=== PATIENT | female | born 1945 | race Caucasian/White ===

== ENCOUNTER → 2017-01-21 | Outpatient (CLI) | payer MEDICARE, MEDICAID ==
[~2017-01-21] MED LIST: ACETAMINOPHEN325 M2 PO; ALLOPURINOL100 M1 PO; ALLOPURINOL100 MG PO; ANTIVERT GENERI25 MG PO; ARTHRICREAM 10% TP; ASPIRIN EC325 MG PO; AZITHROMYCIN250 M1 PO; BACLOFEN20 MG PO; BENTYL20 MG PO; BUSPIRONE HCL7.5 MG PO; CIPRO 500MG TA500 MG PO; CITALOPRAM10 MG PO; CLARITIN 10MG T10 MG PO; CLARITIN10 MG PO; COGENTIN GENERIC1 MG PO; COLACE GENERIC100 MG OR; FLONASE 50 MCG16 GM IN; GABAPENTIN100 M1 PO; IBU-8800 MG PO; IBUPROFEN 600M600 MG PO; K-Dur 2020 MEQ PO; KEFLEX 500MG.500 MG PO; KEFLEX500 M1 PO; KLOR-CON M2020 ME1 PO; LEVAQUIN500 MG PO; LOPERAMIDE2 M1 PO; LOPERAMIDE2 MG PO; LORAZEPAM1 MG/TABLE PO; MAXZIDE 25 MG-31 TAB PO; MAXZIDE 50 MG-71 TAB PO; MECLIZINE HYDRO25 MG PO; MECLIZINE12.5 MG PO; MECLIZINE25 MG PO; MOTRIN 600MG.600 MG PO; NITROSTAT 0.4M0.4 MG SL; PREDNISONE 20MG20 MG PO; PRILOSEC20 M1 PO; PRILOSEC20 MG PO; PROCHLORPERAZIN10 MG PO; PROMETHAZINE25 M1 PO; PROTONIX 40MG T40 MG PO; Prilosec20 MG PO; Q-TUSSIN DM 10120 ML PO; ROBITUSSIN DM 105 ML PO; ROBITUSSIN100 MG/5 M PO; TESSALON PERLE100 MG PO; TESSALON PERLE200 MG PO; TRIAMTERENE/HCT1 TA1 PO; ZITHROMAX 250M250 MG PO; ZOFRAN ODT4 MG PO; ZOFRAN4 MG PO; ZYPREXA5 M1 PO; ZYPREXA5 MG PO
--- NOTE | 2017-01-21 13:49 | RADIOLOGY REPORT PS360 ---
History and Indications: Chest pain, shortness of breath tobacco use. Procedure: Patient received 0.4 mg of Lexiscan, resting heart rate was 65 bpm resting blood pressure 129/68, with Lexiscan maximum heart rate achieved was 85 bpm which is less than 85% of the maximum predicted heart rate, and the blood pressure was 123/57. With Lexiscan patient complained of shortness of breath. Electrocardiogram: Resting electrocardiogram showed sinus rhythm, with Lexiscan there is less than 1.[address] segment depression noted from the baseline EKG. The EKG portion of the Lexiscan is nondiagnostic. Cardiac stress and resting SPECT images: Cardiac stress and resting SPECT images were obtained using technetium 99 Myoview 10.5 mCi at rest 32.3 mCi at stress gated SPECT for analysis of segmental wall motion and calculation of the ejection fraction was also done. Cardiac stress and resting SPECT images show a mild fixed defect inferoseptally with normal contractility in the gated SPECT is likely secondary to soft tissue attenuation, no reversible ischemia seen. Computer derived ejection fraction is over 65% with no obvious regional wall motion abnormality, right ventricle is normal size and contractility. Conclusion: 1. The EKG portion of the Lexiscan is nondiagnostic. 2. No obvious scintigraphic evidence of reversible ischemia seen, computer derived ejection fraction over 65% with no obvious regional wall motion abnormality, right ventricle is normal size and contractility.
--- NOTE | 2017-01-21 14:53 | RADIOLOGY REPORT PS360 ---
PROCEDURE: 2-D M-mode and color Doppler study. INDICATIONS FOR THE TEST: Chest pain X COPD Heart Murmur Tobacco Smoking Palpitations Fatigue Syncope Edema Hypertension Diabetes Mellitus Rheumatic Fever SOB BARCLAY Obesity Hyperlipidemia Family History HD Additional History PATIENT INFORMATION HEIGHT: 67 WEIGHT:180 GENDER: Female B/P:136/60 2-D/M-MODE INTERPRETATION: 2-D MEASUREMENTS OBSERVED VALUES IN CMS Right Ventricular Dimension (RVDd) 1.8 Interventricular Septum (Thickness)(IVsd) 1.2 Left Ventricular Internal Dimensions(LVIDd) 3.5 Left Ventricular Posterior Wall (Thickness)(LVPWd) 1.2 Aortic Root 3.0 Aortic Cusp Separation 1.5 Left Atrial Dimensions (LAD) 2.4 2D 1. Technically difficult study because of the patient's factor and poor acoustic windows. 2. The left atrium is mildly enlarged qualitatively, left ventricle is normal size, there is mild concentric left ventricular hypertrophy present, visually estimated ejection fraction 55% with no obvious regional wall motion abnormality. 3. The right atrium and right ventricle are normal size and contractility. 4. The aortic valve is minimally thickened and fibrosed consistent with mild aortic sclerosis. 5. Mitral valve leaflets are minimally thickened, there is no mitral stenosis. 6. The tricuspid valve is structurally normal. 7. Pulmonic valve is not well visualized. 8. No significant pericardial effusion noted. DOPPLER INTERROGATION: Doppler interrogation of the aortic mitral and tricuspid valvular presence of mild mitral and tricuspid regurgitation, tricuspid regurgitant jet velocity insufficient for calculation of the right ventricular systolic pressure. Grade 1 diastolic dysfunction seen without tissue Doppler evidence of raised left atrial pressure. CONCLUSION: 1. Mildly enlarged left atrium, normal left ventricular size, mild concentric left ventricular hypertrophy present visually estimated to fraction 55% with no obvious regional wall motion abnormality, grade 1 diastolic dysfunction seen without Doppler evidence of raised left atrial pressure. 2. Mild mitral and tricuspid regurgitation 3. No significant pericardial effusion noted.
== END ==
LOC: RAD 07:30
DX: I20.9 Angina pectoris, unspecified (principal); R06.00 Dyspnea, unspecified
CPT/HCPCS: A9502; J2785

== ENCOUNTER 2017-02-22 22:14 | Emergency (ER) | payer MEDICARE, MEDICAID ==
[~2017-02-22] VITALS: Ht 177.8 cm; Wt 68.0 kg
--- NOTE | 2017-02-22 22:19 | Emergency Room Report ---
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 N Clinical Suspician of Infection? N Mental Status: 1 - Regular (Normal Baseline) Sepsis Risk:Low Sepsis Risk Have you (or family members/close friends) recently traveled outside the [place] States? N If Yes, where/when: Have you had exposure to infectious disease within the past month? N TB? Other? Specify: Comment The patient is brought in by ambulance complaining of chest pain. She is an inconsistent historian. Initially she told me that she had chest pain all that day long that did not go away. She then later states that she has had intermittent chest pain since 5 PM. She has felt short of breath all day. She has some chronic back pain from arthritis but denies any other pain or radiation. She denies nausea or vomiting or diaphoresis. She was given aspirin and nitroglycerin prior to arrival. Currently, she complains of some intermittent chest pain in the lower sternal area. ALLERGIES Coded Allergies: No Known Allergies (01/17/17) Home Medications Active Scripts Pantoprazole Sodium (Protonix 40MG TAB) 40 MG PO DAILY #30 TAB Ref 6 Prov: 09/02/15 ASPIRIN (Aspirin EC) 325 MG PO DAILY #30 Prov: 06/26/12 Reported Medications Acetaminophen (Acetaminophen Tab) 325 MG PO Q4H PRN PAIN BENZTROPINE MESYLATE (COGENTIN 1MG TAB) 1 TAB PO BID Buspirone Hcl 10 TAB PO BID Nitroglycerin (Nitrostat 0.4MG (1/150 Gr) Tabs #25) 0.4 MG SL [id number] Baclofen (Baclofen 20MG) 1 TAB PO BID LOPERAMIDE HCL (Loperamide) 2 MG PO Q8HP DEXTROMETHORPHAN-GG (Guaifenesin Dm Syrup) 10 ML PO Q6HP CITALOPRAM HYDROBROMIDE (Citalopram HBr) 20 mg PO DAILY Lorazepam (Lorazepam 1MG) 1 MG PO TID Gabapentin (Gabapentin 100MG) 100 MG PO TID Allopurinol 100 MG PO BID Prochlorperazine Maleate 10 MG PO Q6HP PRN UNKNOWN Potassium Chloride (Klor-Con M20) 20 MEQ PO TID TRIAMTERENE/HYDROCHLOROTHIAZID (Triamterene-Hctz 75-50 MG Tab) 1 TAB PO DAILY Loratadine (Claritin 10MG) 10 MG PO DAILY Olanzapine (Zyprexa) 5 MG PO BID History Medical History General CAD? No Angina: No [place]: No Hypertension? Yes Hyperlipidemia? No CHF? No DVT? No PE? No COPD? No Asthma? No Anemia? No GERD? Yes Gastric ulcers? No GI Bleed? No Hernia? No Thyroid Problems? No Hypothyroidism? No CVA? No Seizures? No Diabetes? No Insulin Dependent: No Insulin Pump: No Home FSBS? No Renal Insuffiency? No End Stage Renal Disease? No UTI? No Stones? No BPH? No GB Disease: Yes Nephritic Syndrome? No Asplenia? No Hepatitis? No Sickle Cell Disease? No Arthritis? Yes Migraines? No Cataracts? No Glaucoma? No MRSA? No HIV? No TB? No Anxiety? No Depression? No Cancer? No More? 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 She has had a CT angiogram of her chest 01/08/17 and 08/19/16, both negative for pulmonary embolism. Both showed gas filled distal esophagus, possible achalasia She had a Lexiscan SPECT stress test on 01/21/17 which showed no obvious scintigraphic evidence of reversible ischemia. Electrocardiogram portion nondiagnostic. Review of Systems All Other Systems Reviewed and Negative Constitutional denies diaphoresis, denies fever Respiratory shortness of breath Cardiovascular chest pain Gastrointestinal denies abdominal pain, denies nausea, denies vomiting Physical Exam Vital Signs Vital Signs Date Time Temp Pulse Resp B/P Pulse O2 O2 Flow FiO2 Ox Delivery Rate 02/23 0124 64 20 134/76 94 02/22 2244 76 20 122/72 95 02/22 2217 98.4 84 20 105/68 96 General Appearance normal appearance, WD/WN Eye Exam - bilateral eye normal exam, bilateral eye PERRL, bilateral eye EOMI Ear, Nose, Throat hearing grossly normal, normal ENT inspection Neck normal inspection, non-tender, supple, full range of motion Respiratory Status Yes: trachea midline, chest symmetrical, non tender chest. No: respiratory distress. Lung Sounds bilateral: normal breath sounds, lungs clear. 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 No Results/Orders Laboratory Tests 02/23/17 0058: Troponin I < 0.02 02/22/172109: Amylase 54, Lipase 165 02/22/172109: Sodium 145, Potassium 3.5, Chloride 108 H, Carbon Dioxide 29, BUN 16, Creatinine 0.8, Estimated Creat Clear 69, Estimated GFR (MDRD) 71, Glucose 118 H, Calcium 8.7, Total Bilirubin 0.2, AST 13 L, ALT 23, Alkaline Phosphatase 121 H, Creatine Kinase 80, CK-MB (CK-2) Rel Index 1.6, CK and CKMB Interp 1.3, Troponin I < 0.02, Total Protein 6.9, Albumin 3.4, Globulin 3.5 H, Albumin/ Globulin Ratio 1.0 L, WBC 6.0, RBC 3.80 L, Hgb 11.9 L, Hct 35.0 L, MCV 92.0, RDW 13.4, Plt Count 192, MPV 6.4 L, Gran % 51.2, Gran # 3.1, Lymphocytes % 39.8 , Monocytes % 6.2, Eosinophils % 2.3, Basophils % 0.5, Lymphocytes # 2.4, Monocytes # 0.4, Eosinophils # 0.1, Basophils # 0.0, PUBS MCHC 34.0, MCH 31.3 H Orders Procedure Date/time Status TROPONIN I 02/23 0100 Complete CHEST(2 VIEWS-NOT PORTABLE) 02/22 2251 Active LIPASE 02/22 224 Complete AMYLASE 02/22 224 Complete ELECTROCARDIOGRAM REQUEST 02/23 2224 Active CHEST-PORTABLE 02/23 2224 Active IV SALINE LOCK 02/23 2224 Active EDUCATIONAL SPEECH LANGUAGE CLINICIAN 02/23 2224 Active CBC WITH AUTO DIFF 02/23 2224 Complete CARDIAC ENZYMES 02/23 2224 Complete CHEM 12 PROFILE 02/23 2224 Complete 12 LEAD EKG-BESSON (INITIAL) 02/22 UNK Active CM/EKG CM/EKG Comments EKG interpreted by Zeyad Rojo MD: Rhythm: sinus Rate: 76 [place]: normal Ectopy: none Conduction: First-degree AV block ST Segment Changes: none T Wave Changes: none Q Waves: none Minimal septal R waves, possible old septal wall myocardial infarction, unchanged from prior electrocardiograms No evidence of acute ischemia or injury XRAY/CT/US XRAY/CT/US XRAY chest Comment X-ray interpreted by Zeyad Rojo M.D.: Bibasilar atelectasis versus vascular crowding, similar to prior x-rays. Progress - 1:25 AM: Patient states she feels better. Second troponin negative. We'll discharge back to home. Departure Departure Disposition DC Home or Self Care(routine) Clinical Impression Primary Impression: Atypical chest pain Condition STABLE Referrals Niranjan Shea (Family) Patient Instructions DI for Atypical Chest Pain Additional Instructions Additional instructions for CHEST PAIN: See your physician as soon as possible for further evaluation. Return immediately if worsening chest pain, vomiting, shortness of breath, fever, coughing of blood. ED Critical Care Critical Care No at 0128
--- NOTE | 2017-02-22 22:19 | Emergency Room Report ---
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 N Clinical Suspician of Infection? N Mental Status: 1 - Regular (Normal Baseline) Sepsis Risk:Low Sepsis Risk Have you (or family members/close friends) recently traveled outside the [place] States? N If Yes, where/when: Have you had exposure to infectious disease within the past month? N TB? Other? Specify: Comment The patient is brought in by ambulance complaining of chest pain. She is an inconsistent historian. Initially she told me that she had chest pain all that day long that did not go away. She then later states that she has had intermittent chest pain since 5 PM. She has felt short of breath all day. She has some chronic back pain from arthritis but denies any other pain or radiation. She denies nausea or vomiting or diaphoresis. She was given aspirin and nitroglycerin prior to arrival. Currently, she complains of some intermittent chest pain in the lower sternal area. ALLERGIES Coded Allergies: No Known Allergies (01/17/17) Home Medications Active Scripts Pantoprazole Sodium (Protonix 40MG TAB) 40 MG PO DAILY #30 TAB Ref 6 Prov: 09/02/15 ASPIRIN (Aspirin EC) 325 MG PO DAILY #30 Prov: 06/26/12 Reported Medications Acetaminophen (Acetaminophen Tab) 325 MG PO Q4H PRN PAIN BENZTROPINE MESYLATE (COGENTIN 1MG TAB) 1 TAB PO BID Buspirone Hcl 10 TAB PO BID Nitroglycerin (Nitrostat 0.4MG (1/150 Gr) Tabs #25) 0.4 MG SL [id number] Baclofen (Baclofen 20MG) 1 TAB PO BID LOPERAMIDE HCL (Loperamide) 2 MG PO Q8HP DEXTROMETHORPHAN-GG (Guaifenesin Dm Syrup) 10 ML PO Q6HP CITALOPRAM HYDROBROMIDE (Citalopram HBr) 20 mg PO DAILY Lorazepam (Lorazepam 1MG) 1 MG PO TID Gabapentin (Gabapentin 100MG) 100 MG PO TID Allopurinol 100 MG PO BID Prochlorperazine Maleate 10 MG PO Q6HP PRN UNKNOWN Potassium Chloride (Klor-Con M20) 20 MEQ PO TID TRIAMTERENE/HYDROCHLOROTHIAZID (Triamterene-Hctz 75-50 MG Tab) 1 TAB PO DAILY Loratadine (Claritin 10MG) 10 MG PO DAILY Olanzapine (Zyprexa) 5 MG PO BID History Medical History General CAD? No Angina: No [place]: No Hypertension? Yes Hyperlipidemia? No CHF? No DVT? No PE? No COPD? No Asthma? No Anemia? No GERD? Yes Gastric ulcers? No GI Bleed? No Hernia? No Thyroid Problems? No Hypothyroidism? No CVA? No Seizures? No Diabetes? No Insulin Dependent: No Insulin Pump: No Home FSBS? No Renal Insuffiency? No End Stage Renal Disease? No UTI? No Stones? No BPH? No GB Disease: Yes Nephritic Syndrome? No Asplenia? No Hepatitis? No Sickle Cell Disease? No Arthritis? Yes Migraines? No Cataracts? No Glaucoma? No MRSA? No HIV? No TB? No Anxiety? No Depression? No Cancer? No More? 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 She has had a CT angiogram of her chest 01/08/17 and 08/19/16, both negative for pulmonary embolism. Both showed gas filled distal esophagus, possible achalasia She had a Lexiscan SPECT stress test on 01/21/17 which showed no obvious scintigraphic evidence of reversible ischemia. Electrocardiogram portion nondiagnostic. Review of Systems All Other Systems Reviewed and Negative Constitutional denies diaphoresis, denies fever Respiratory shortness of breath Cardiovascular chest pain Gastrointestinal denies abdominal pain, denies nausea, denies vomiting Physical Exam Vital Signs Vital Signs Date Time Temp Pulse Resp B/P Pulse O2 O2 Flow FiO2 Ox Delivery Rate 02/23 0124 64 20 134/76 94 02/22 2244 76 20 122/72 95 02/22 2217 98.4 84 20 105/68 96 General Appearance normal appearance, WD/WN Eye Exam - bilateral eye normal exam, bilateral eye PERRL, bilateral eye EOMI Ear, Nose, Throat hearing grossly normal, normal ENT inspection Neck normal inspection, non-tender, supple, full range of motion Respiratory Status Yes: trachea midline, chest symmetrical, non tender chest. No: respiratory distress. Lung Sounds bilateral: normal breath sounds, lungs clear. 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 No Results/Orders Laboratory Tests 02/23/17 0058: Troponin I < 0.02 02/22/172109: Amylase 54, Lipase 165 02/22/172109: Sodium 145, Potassium 3.5, Chloride 108 H, Carbon Dioxide 29, BUN 16, Creatinine 0.8, Estimated Creat Clear 69, Estimated GFR (MDRD) 71, Glucose 118 H, Calcium 8.7, Total Bilirubin 0.2, AST 13 L, ALT 23, Alkaline Phosphatase 121 H, Creatine Kinase 80, CK-MB (CK-2) Rel Index 1.6, CK and CKMB Interp 1.3, Troponin I < 0.02, Total Protein 6.9, Albumin 3.4, Globulin 3.5 H, Albumin/ Globulin Ratio 1.0 L, WBC 6.0, RBC 3.80 L, Hgb 11.9 L, Hct 35.0 L, MCV 92.0, RDW 13.4, Plt Count 192, MPV 6.4 L, Gran % 51.2, Gran # 3.1, Lymphocytes % 39.8 , Monocytes % 6.2, Eosinophils % 2.3, Basophils % 0.5, Lymphocytes # 2.4, Monocytes # 0.4, Eosinophils # 0.1, Basophils # 0.0, PUBS MCHC 34.0, MCH 31.3 H Orders Procedure Date/time Status TROPONIN I 02/23 0100 Complete CHEST(2 VIEWS-NOT PORTABLE) 02/22 2251 Active LIPASE 02/22 224 Complete AMYLASE 02/22 224 Complete ELECTROCARDIOGRAM REQUEST 02/23 2224 Active CHEST-PORTABLE 02/23 2224 Active IV SALINE LOCK 02/23 2224 Active GRAIN UNLOADER MACHINE 02/23 2224 Active CBC WITH AUTO DIFF 02/23 2224 Complete CARDIAC ENZYMES 02/23 2224 Complete CHEM 12 PROFILE 02/23 2224 Complete 12 LEAD EKG-BESSON (INITIAL) 02/22 UNK Active CM/EKG CM/EKG Comments EKG interpreted by Zeyad Rojo MD: Rhythm: sinus Rate: 76 [place]: normal Ectopy: none Conduction: First-degree AV block ST Segment Changes: none T Wave Changes: none Q Waves: none Minimal septal R waves, possible old septal wall myocardial infarction, unchanged from prior electrocardiograms No evidence of acute ischemia or injury XRAY/CT/US XRAY/CT/US XRAY chest Comment X-ray interpreted by Zeyad Rojo M.D.: Bibasilar atelectasis versus vascular crowding, similar to prior x-rays. Progress - 1:25 AM: Patient states she feels better. Second troponin negative. We'll discharge back to home. Departure Departure Disposition DC Home or Self Care(routine) Clinical Impression Primary Impression: Atypical chest pain Condition STABLE Referrals Niranjan Shea (Family) Patient Instructions DI for Atypical Chest Pain Additional Instructions Additional instructions for CHEST PAIN: See your physician as soon as possible for further evaluation. Return immediately if worsening chest pain, vomiting, shortness of breath, fever, coughing of blood. ED Critical Care Critical Care No at 0128
[2017-02-22 22:29] LABS: HEMOGLOBIN 11.9 g/dL (12.2-16.2); LYMPH # 2.4 K/mm3 (0.7-4.5); LYMPH % 39.8 % (10-50.0)
[2017-02-22 22:55] LABS: BUN 16 mg/dL (7-18); GFR (ESTIMATED) 71 ML/MIN (59-)
[2017-02-23 01:30] VITALS: BP 134/76
--- NOTE | 2017-02-23 08:47 | RADIOLOGY REPORT PS360 ---
CHEST-PORTABLE Ordering Physician: Zeyad Rojo MD Patient Age: 71 years: Female HISTORY: CHEST PAIN TECHNIQUE: AP portable upright chest COMPARISON 01-23 portable chest August 19, 2016 portable chest. PA and lateral chest from today subsequently performed FINDINGS No pneumothorax. No obvious pleural effusion. No chest wall lesions. No CHF. Heart normal size. suboptimal inspiration Bibasilar atelectasis most evident at left base. Question early infiltrate left base just above left hemidiaphragm. (Increased markings here left base becomes less evident on the PA and lateral performed 1 hour after this image) The heart is normal in size. Lyla and mediastinal structures satisfactory IMPRESSION: Suboptimal inspiration with Bibasilar atelectasis. Most pronounced at the left base Increased markings most notable just above left hemidiaphragm -difficult to exclude early infiltrate left lung base
--- NOTE | 2017-02-23 08:59 | RADIOLOGY REPORT PS360 ---
CHEST(2 VIEWS-NOT PORTABLE) Ordering physician: Zeyad Rojo MD Age: 71 years Female INDICATION: chest symptomschest pain PROCEDURE: CHEST(2 VIEWS-NOT PORTABLE) FINDINGS: Previous 2 view chest 07/05/2016 05/01/2016 and October 2015 used as comparison We again see coarsening markings toward lung bases reflecting bibasilar atelectasis and scarring. Most evident at left base. There is slight elevation left hemidiaphragm reflecting the atelectasis compared to previous studies. A previous portable chest performed 1 hour earlier, raised questioned possible early infiltrate at left lung base/left infrahilar region. This region appears better expanded, clearer with decreased suspicion of pneumonia. Tend to favor Favor atelectasis and scarring, but still it is difficult to totally exclude a subtle infiltrate medial left lung base, but less concern on this better inspiration PA and lateral chest film. Heart is normal in size. Mild vascular engorgement no CHF. No pleural effusion chest wall unremarkable. \ Old stable compression fractures lower T-spine unchanged since studies dating back to August 2016 T11 Severe wedge compression fracture with marked loss of height. Up to 75% loss of height at the anterior aspect of the wedge with slight retropulsion as seen on the recent CT chest 3-17. T12. A mild compression superior endplate 25% loss of height. Unchanged since old studies . IMPRESSION 1. Bibasilar atelectasis left greater the right Increased markings lung bases reflecting atelectasis and scarring . Difficult to exclude early infiltrate left base but more likely atelectasis. Slight elevation left hemidiaphragm today compared to prior studies 2. Stable old compression fractures lower T-spine better seen on prior CTs Prominent wedge compression fracture at T11 most evident and unchanged
== END 2017-02-23 01:51 | disposition home or self-care (01) ==
LOC: ER 22:14
PROVIDERS: Emergency Medicine
DX: R07.89 Other chest pain (principal); I10 Essential (primary) hypertension; K21.9 Gastro-esophageal reflux disease without esophagitis

== ENCOUNTER 2017-06-08 22:29 | Emergency (ER) | payer MEDICARE, MEDICAID ==
[~2017-06-08] VITALS: Ht 177.8 cm; Wt 79.4 kg
--- NOTE | 2017-06-08 22:40 | Emergency Room Report ---
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 N Clinical Suspician of Infection? N Mental Status: 1 - Regular (Normal Baseline) Sepsis Risk:Low Sepsis Risk Have you (or family members/close friends) recently traveled outside the [place]? N If Yes, where/when: Have you had exposure to infectious disease within the past month? N TB? Other? Specify: Source patient, RN notes reviewed, RN/MD Exam Limitations no limitations Comment This is a 71-year-old senior care patient from [place] arriving to the emergency room with left-sided chest wall pain since 12:30 today, nonradiating, without any associated shortness of breath or diaphoresis. Patient was seen here recently with same complaints on multiple occasions. Patient describes the pain is worse with deep inspiration. Denies any chest injury. ALLERGIES Coded Allergies: No Known Allergies (04/26/17) Home Medications Active Scripts Pantoprazole Sodium (Protonix 40MG TAB) 40 MG PO DAILY #30 TAB Ref 6 Prov: 09/02/15 ASPIRIN (Aspirin EC) 325 MG PO DAILY #30 Prov: 06/26/12 Reported Medications BENZTROPINE MESYLATE (COGENTIN 1MG TAB) 1 TAB PO BID Buspirone Hcl 10 TAB PO BID Nitroglycerin (Nitrostat 0.4MG (1/150 Gr) Tabs #25) 0.4 MG SL [id number] Baclofen (Baclofen 20MG) 1 TAB PO BID LOPERAMIDE HCL (Loperamide) 2 MG PO Q8HP DEXTROMETHORPHAN-GG (Guaifenesin Dm Syrup) 10 ML PO Q6HP CITALOPRAM HYDROBROMIDE (Citalopram HBr) 20 mg PO DAILY Lorazepam (Lorazepam 1MG) 1 MG PO TID Gabapentin (Gabapentin 100MG) 100 MG PO TID Allopurinol 100 MG PO BID Prochlorperazine Maleate 10 MG PO Q6HP PRN UNKNOWN Potassium Chloride (Klor-Con M20) 20 MEQ PO TID TRIAMTERENE/HYDROCHLOROTHIAZID (Triamterene-Hctz 75-50 MG Tab) 1 TAB PO DAILY Loratadine (Claritin 10MG) 10 MG PO DAILY Olanzapine (Zyprexa) 5 MG PO BID Acetaminophen (Tylenol XS 500MG) 1,000 MG PO Q6HP PRN PAIN Simethicone 30 ML PO Q 4 HOURS PRN INDIGESTION Lactulose (Lactulose) 1 DOSE PO DAILY NITROGLYCERIN (Nitrostat) 0.4 MG SL [id number] PRN CHEST PAIN Albuterol Sulfate (Proair Hfa) 1 PUFF IH Q4 HOURS PRN SOB Atorvastatin Calcium (Lipitor 10MG) 10 MG PO QHS History Medical History General CAD? No Angina: No AL: No Hypertension? Yes Hyperlipidemia? No CHF? No DVT? No PE? No COPD? No Asthma? No Anemia? No GERD? Yes Gastric ulcers? No GI Bleed? No Hernia? No Thyroid Problems? No Hypothyroidism? No CVA? No Seizures? No Diabetes? No Insulin Dependent: No Insulin Pump: No Home FSBS? No Renal Insuffiency? No End Stage Renal Disease? No UTI? No Stones? No BPH? No GB Disease: Yes Nephritic Syndrome? No Asplenia? No Hepatitis? No Sickle Cell Disease? No Arthritis? Yes Migraines? No Cataracts? No Glaucoma? No MRSA? No HIV? No TB? No Anxiety? No Depression? No Cancer? No More? 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 Family History Family Hx Diabetes No CAD No Hypertension No Hyperlipidemia No Cancer Yes TB Yes Social History Smoking Hx Smoker: Current Every Day Smoker Tobacco: Yes Type Cigarettes Packs/day < 1 Pack Alcohol Alcohol: No Review of Systems All Other Systems Reviewed and Negative Cardiovascular chest pain Physical Exam Vital Signs Vital Signs Date Time Temp Pulse Resp B/P Pulse O2 O2 Flow FiO2 Ox Delivery Rate 06/08 2338 97.5 61 20 91/68 95 06/08 2319 97.5 65 20 104/66 94 06/08 2251 95 06/08 2231 97.5 71 20 101/51 91 General Appearance normal appearance, WD/WN, no apparent distress Respiratory Status Yes: trachea midline, chest symmetrical, tender on palpation (LEFT chest). No: respiratory distress. Lung Sounds bilateral: normal breath sounds, lungs clear. Cardiovascular normal exam, regular rate/rhythm, no peripheral edema, no gallop, no JVD, no murmur, no rub, normal peripheral pulses Gastrointestinal normal bowel sounds, normal exam, non tender, soft, no organomegaly Extremities non-tender, normal range of motion, normal inspection Neurologic alert, broke beater operator II-XII nml as tested, normal exam, oriented x 3 Mental status normal mood/affect Skin intact, normal color, warm/dry Medical Decision Making LABS/Meds/Orders Pt receiving controlled substance in ED? No Comment Upon evaluation patient is asleep, in no acute distress, denying any further complaints one woke him up. Advised patient results obtained as well as need to follow-up with mix maker, Narendra Scruggs, per discharge instructions. Results/Orders Laboratory Tests 06/08/172244: B-Natriuretic Peptide 18 06/08/172244: Sodium 138, Potassium 3.6, Chloride 103, Carbon Dioxide 25, BUN 17, Creatinine 0.6, Estimated Creat Clear 108, Estimated GFR (MDRD) 99, Glucose 106, Calcium 8.7, Total Bilirubin 0.3, AST 12 L, ALT 22, Alkaline Phosphatase 109, Creatine Kinase 85, CK and CKMB Interp 1.1, Troponin I < 0.02, Total Protein 7.0, Albumin 3.6, Globulin 3.4 H, Albumin/Globulin Ratio 1.1, D-Dimer 365, WBC 5.5, RBC 3.85 L, Hgb 11.7 L, Hct 35.0 L, MCV 90.7, RDW 13.6, Plt Count 181, MPV 8.3, Gran % 49.1, Gran # 2.7, Lymphocytes % 40.7, Monocytes % 6.9, Eosinophils % 2.2, Basophils % 1.0, Lymphocytes # 2.2, Monocytes # 0.4, Eosinophils # 0.1, Basophils # 0.1, PUBS MCHC 33.3, MCH 30.3 Current Medication Orders Sig/Aleida Start time Last Medication Dose Route Stop Time Status Admin Aspirin 325 MG ONCE ONE 06/08 2245 CAN PO 06/08 2246 Sodium Chloride 10 ML PRN PRN 06/08 2245 DCD IV 06/09 2234 Orders Procedure Date/time Status CHEST-PORTABLE 06/08 2235 Active D-DIMER 06/08 2235 Complete BRAIN NATRIURETIC PEPTIDE 06/08 2235 Complete ELECTROCARDIOGRAM REQUEST 06/08 2234 Active IV SALINE LOCK 06/08 2234 Active OXYGEN PER NURSE 06/08 2234 Active LIVESTOCK COMMISSION AGENT 06/08 2234 Active TROPONIN I 06/08 2234 Complete CPK 06/08 2234 Complete COMPLETE METABOLIC PANEL 06/08 2234 Complete CKMB 06/08 2234 Complete CBC WITH AUTO DIFF 06/08 2234 Complete 12 LEAD EKG-AARONSON (INITIAL) 06/08 UNK Active CM/EKG CM/educational technician Rhythm Normal Sinus Rhythm Rate 85 Ectopy No Comments No acute ischemic changes EKG rate, NSR, rhythm, no evid. of ischemic chgs, no ectopy, normal QRS, normal SD, no EKG for comparison, non-spec. ST/Twave chgs, ST elevation, ST depression, LBBB, RBBB, ectopy, abnormal Q waves XRAY/CT/US XRAY/CT/US XRAY chest XR interpretation by reviewed by me Xray Results no infiltrates, normal heart size, normal lung inflation antonio Departure Departure Time of Disposition 2327 Disposition DC Home or Self Care(routine) Clinical Impression Primary Impression: Chest pain Qualifiers: Chest pain type: unspecified Qualified Code: R07.9 - Chest pain, unspecified Condition STABLE Referrals Narendra Scruggs MD: 2 Days-Call Office for mandatory re-evaluation Patient Instructions DI for Atypical Chest Pain Additional Instructions Please follow up with Dr Scruggs in 2 days for mandatory re-evaluation. Discharge Counseling Counseled pt/family regarding diagnosis, test results, medications/RX, home care, follow up needs Comment Please follow up with Dr Scruggs in 2 days for mandatory re-evaluation. ED Critical Care Critical Care No at [id number]
--- NOTE | 2017-06-08 22:40 | Emergency Room Report ---
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 N Clinical Suspician of Infection? N Mental Status: 1 - Regular (Normal Baseline) Sepsis Risk:Low Sepsis Risk Have you (or family members/close friends) recently traveled outside the [place]? N If Yes, where/when: Have you had exposure to infectious disease within the past month? N TB? Other? Specify: Source patient, RN notes reviewed, RN/MD Exam Limitations no limitations Comment This is a 71-year-old detention patient from [place] arriving to the emergency room with left-sided chest wall pain since 12:30 today, nonradiating, without any associated shortness of breath or diaphoresis. Patient was seen here recently with same complaints on multiple occasions. Patient describes the pain is worse with deep inspiration. Denies any chest injury. ALLERGIES Coded Allergies: No Known Allergies (04/26/17) Home Medications Active Scripts Pantoprazole Sodium (Protonix 40MG TAB) 40 MG PO DAILY #30 TAB Ref 6 Prov: 09/02/15 ASPIRIN (Aspirin EC) 325 MG PO DAILY #30 Prov: 06/26/12 Reported Medications BENZTROPINE MESYLATE (COGENTIN 1MG TAB) 1 TAB PO BID Buspirone Hcl 10 TAB PO BID Nitroglycerin (Nitrostat 0.4MG (1/150 Gr) Tabs #25) 0.4 MG SL [id number] Baclofen (Baclofen 20MG) 1 TAB PO BID LOPERAMIDE HCL (Loperamide) 2 MG PO Q8HP DEXTROMETHORPHAN-GG (Guaifenesin Dm Syrup) 10 ML PO Q6HP CITALOPRAM HYDROBROMIDE (Citalopram HBr) 20 mg PO DAILY Lorazepam (Lorazepam 1MG) 1 MG PO TID Gabapentin (Gabapentin 100MG) 100 MG PO TID Allopurinol 100 MG PO BID Prochlorperazine Maleate 10 MG PO Q6HP PRN UNKNOWN Potassium Chloride (Klor-Con M20) 20 MEQ PO TID TRIAMTERENE/HYDROCHLOROTHIAZID (Triamterene-Hctz 75-50 MG Tab) 1 TAB PO DAILY Loratadine (Claritin 10MG) 10 MG PO DAILY Olanzapine (Zyprexa) 5 MG PO BID Acetaminophen (Tylenol XS 500MG) 1,000 MG PO Q6HP PRN PAIN Simethicone 30 ML PO Q 4 HOURS PRN INDIGESTION Lactulose (Lactulose) 1 DOSE PO DAILY NITROGLYCERIN (Nitrostat) 0.4 MG SL [id number] PRN CHEST PAIN Albuterol Sulfate (Proair Hfa) 1 PUFF IH Q4 HOURS PRN SOB Atorvastatin Calcium (Lipitor 10MG) 10 MG PO QHS History Medical History General CAD? No Angina: No SD: No Hypertension? Yes Hyperlipidemia? No CHF? No DVT? No PE? No COPD? No Asthma? No Anemia? No GERD? Yes Gastric ulcers? No GI Bleed? No Hernia? No Thyroid Problems? No Hypothyroidism? No CVA? No Seizures? No Diabetes? No Insulin Dependent: No Insulin Pump: No Home FSBS? No Renal Insuffiency? No End Stage Renal Disease? No UTI? No Stones? No BPH? No GB Disease: Yes Nephritic Syndrome? No Asplenia? No Hepatitis? No Sickle Cell Disease? No Arthritis? Yes Migraines? No Cataracts? No Glaucoma? No MRSA? No HIV? No TB? No Anxiety? No Depression? No Cancer? No More? 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 Family History Family Hx Diabetes No CAD No Hypertension No Hyperlipidemia No Cancer Yes TB Yes Social History Smoking Hx Smoker: Current Every Day Smoker Tobacco: Yes Type Cigarettes Packs/day < 1 Pack Alcohol Alcohol: No Review of Systems All Other Systems Reviewed and Negative Cardiovascular chest pain Physical Exam Vital Signs Vital Signs Date Time Temp Pulse Resp B/P Pulse O2 O2 Flow FiO2 Ox Delivery Rate 06/08 2338 97.5 61 20 91/68 95 06/08 2319 97.5 65 20 104/66 94 06/08 2251 95 06/08 2231 97.5 71 20 101/51 91 General Appearance normal appearance, WD/WN, no apparent distress Respiratory Status Yes: trachea midline, chest symmetrical, tender on palpation (LEFT chest). No: respiratory distress. Lung Sounds bilateral: normal breath sounds, lungs clear. 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 No Comment Upon evaluation patient is asleep, in no acute distress, denying any further complaints one woke him up. Advised patient results obtained as well as need to follow-up with deputy sheriff k9 handler, Narendra Scruggs, per discharge instructions. Results/Orders Laboratory Tests 06/08/172244: B-Natriuretic Peptide 18 06/08/172244: Sodium 138, Potassium 3.6, Chloride 103, Carbon Dioxide 25, BUN 17, Creatinine 0.6, Estimated Creat Clear 108, Estimated GFR (MDRD) 99, Glucose 106, Calcium 8.7, Total Bilirubin 0.3, AST 12 L, ALT 22, Alkaline Phosphatase 109, Creatine Kinase 85, CK and CKMB Interp 1.1, Troponin I < 0.02, Total Protein 7.0, Albumin 3.6, Globulin 3.4 H, Albumin/Globulin Ratio 1.1, D-Dimer 365, WBC 5.5, RBC 3.85 L, Hgb 11.7 L, Hct 35.0 L, MCV 90.7, RDW 13.6, Plt Count 181, MPV 8.3, Gran % 49.1, Gran # 2.7, Lymphocytes % 40.7, Monocytes % 6.9, Eosinophils % 2.2, Basophils % 1.0, Lymphocytes # 2.2, Monocytes # 0.4, Eosinophils # 0.1, Basophils # 0.1, PUBS MCHC 33.3, MCH 30.3 Current Medication Orders Sig/Aleida Start time Last Medication Dose Route Stop Time Status Admin Aspirin 325 MG ONCE ONE 06/08 2245 CAN PO 06/08 2246 Sodium Chloride 10 ML PRN PRN 06/08 2245 DCD IV 06/09 2234 Orders Procedure Date/time Status CHEST-PORTABLE 06/08 2235 Active D-DIMER 06/08 2235 Complete BRAIN NATRIURETIC PEPTIDE 06/08 2235 Complete ELECTROCARDIOGRAM REQUEST 06/08 2234 Active IV SALINE LOCK 06/08 2234 Active OXYGEN PER NURSE 06/08 2234 Active JEWELRY DEPARTMENT SUPERVISOR 06/08 2234 Active TROPONIN I 06/08 2234 Complete CPK 06/08 2234 Complete COMPLETE METABOLIC PANEL 06/08 2234 Complete CKMB 06/08 2234 Complete CBC WITH AUTO DIFF 06/08 2234 Complete 12 LEAD EKG-AARONSON (INITIAL) 06/08 UNK Active CM/EKG CM/lunchroom worker Rhythm Normal Sinus Rhythm Rate 85 Ectopy No Comments No acute ischemic changes EKG rate, NSR, rhythm, no evid. of ischemic chgs, no ectopy, normal QRS, normal NH, no EKG for comparison, non-spec. ST/Twave chgs, ST elevation, ST depression, LBBB, RBBB, ectopy, abnormal Q waves XRAY/CT/US XRAY/CT/US XRAY chest XR interpretation by reviewed by me Xray Results no infiltrates, normal heart size, normal lung inflation antonio Departure Departure Time of Disposition 2327 Disposition DC Home or Self Care(routine) Clinical Impression Primary Impression: Chest pain Qualifiers: Chest pain type: unspecified Qualified Code: R07.9 - Chest pain, unspecified Condition STABLE Referrals Narendra Scruggs MD: 2 Days-Call Office for mandatory re-evaluation Patient Instructions DI for Atypical Chest Pain Additional Instructions Please follow up with Dr Scruggs in 2 days for mandatory re-evaluation. Discharge Counseling Counseled pt/family regarding diagnosis, test results, medications/RX, home care, follow up needs Comment Please follow up with Dr Scruggs in 2 days for mandatory re-evaluation. ED Critical Care Critical Care No at 0639
[2017-06-08] MEDS ORDERED: TYLENOL ES500 MG PO (22:45)
[2017-06-08 22:57] LABS: HEMOGLOBIN 11.7 g/dL (12.2-16.2); LYMPH # 2.2 K/mm3 (0.7-4.5); LYMPH % 40.7 % (10-50.0)
--- OUTSIDE RECORDS SUMMARY | 2017-06-08 23:02 | External Medical Summary Rpt ---
Author Author , TRACEY Wright TRACEY Address Unknown Phone [email or web address] Care Team Providers Care Research Rn Spec Name Role Phone ALFARIS MOH, ALFARIS Unavailable Unavailable MOH GABI LYNCH, Unavailable Unavailable GABI LYNCH BEINEKE ERUM, BEINEKE Unavailable Unavailable ERUM BESSON, BESSON Unavailable Unavailable BESSON LYDIA, BESSON Unavailable Unavailable LYDIA BESSON LYDIA, BESSON Unavailable Unavailable LYDIA BESSON, ADRIAN A, Unavailable Unavailable BESSON, ADRIAN A MURILLO, MURILLO Unavailable Unavailable MURILLO ALL, MURILLO ALL Unavailable Unavailable BRAUDIS JAM, BRAUDIS Unavailable Unavailable JAM BRAUDIS JAM, BRAUDIS Unavailable Unavailable JAM [facility] Unavailable Unavailable SERVICE, [facility] Unavailable Unavailable SERVICE, [facility], [facility] Unavailable Unavailable [facility] Unavailable Unavailable [place], [facility] Unavailable Unavailable [facility], [facility] Unavailable Unavailable LAB, [facility] COOK, COOK Unavailable Unavailable COOK BATOOL, COOK BATOOL Unavailable Unavailable RODDY, RODDY Unavailable Unavailable BRITTNEY ABDIRAHMAN, Unavailable Unavailable BRITTNEY ABDIRAHMAN BRITTNEY, HAYLEY, Unavailable Unavailable BRITTNEY, HAYLEY [facility] Unavailable Unavailable DI[facility]NOST[facility], [facility] Unavailable Unavailable [facility], [facility] FALLUJI DENISE, FALLUJI Unavailable Unavailable DENISE [facility] Unavailable Unavailable SERVBLUEGRAS, [facility] Unavailable Unavailable TRANSPORTATION [facility], [facility] FOLLMER ANGY, FOLLMER Unavailable Unavailable ANGY FOLLMER ANGY, FOLLMER Unavailable Unavailable ANGY FOLLMER, ANGY S, Unavailable Unavailable ASHA, ANGY S EDENILSON HUNTER FORD, Unavailable Unavailable EDENILSON OLEARY, TAWNY Unavailable Unavailable ANIRUDH ALEX HECTOR, Unavailable Unavailable ALEX HECTOR [facility] Unavailable Unavailable INC, [facility] Unavailable Unavailable HOSPITAL P, [facility] P [facility], Unavailable Unavailable [facility] DMITRIY TREVIZO, Unavailable Unavailable TREVIZO, DMITRIY G [facility] Unavailable Unavailable [facility], [facility] MANDY REGGIE, MANDY Unavailable Unavailable REGGIE [facility] Unavailable Unavailable [facility], [facility] Unavailable [facility]available [facility] Unavailable Unavailable IM[facility]ING [facility], [facility] JR JR DWI, JR Unavailable Unavailable JR DWI JR JR DWI, JR Unavailable Unavailable JR DWI JR, SHIRA E, Unavailable Unavailable JR, SHIRA E [facility] Unavailable Unavailable 11, [facility] 11 [facility] Unavailable Unavailable ACTION, [facility] Unavailable Unavailable SERVICES, [facility] MCKEMIE JR MAXIM, Unavailable Unavailable MCKEMIE JR MAXIM MCKEMIE JR MAXIM, Unavailable Unavailable MCKEMIE JR [facility] ERIC GILLETTE, Unavailable Unavailable ERIC GILLETTE R [facility]available [facility], [facility] GABRIELLA CARTAGENA, Unavailable Unavailable GABRIELLA [facility], Unavailable Unavailable PLLC, [facility] PEEK, PEEK Unavailable Unavailable PETTEY JAM, PETTEY Unavailable Unavailable JAM PETTEY JAM, PETTEY Unavailable Unavailable JAM [facility], Unavailable Unavailable [facility] RASLAU FLA, RASLAU Unavailable Unavailable FLA RASLAU FLA, RASLAU Unavailable Unavailable FLA RENUSCH, RENUSCH Unavailable Unavailable RENUSCH BRITTANEY, RENUSCH Unavailable Unavailable BRITTANEY CHIQUITA LYDIA, CHIQUITA LYDIA Unavailable Unavailable CHIQUITA LYDIA, CHIQUITA LYDIA Unavailable Unavailable LISETTE MAXIM, LISETTE Unavailable Unavailable MAXIM [facility] CASTILL[facility], Unavailable Unavailable CASTILLO [facility], Unavailable Unavailable [facility] Unavailable Unavailable [facility] Unavailable Unavailable ASSIST, [facility], Unavailable Unavailable [facility] WEHRMAN III MAXIM, Unavailable Unavailable WEHRMAN III MAXIM WEHRMAN III MAXIM, Unavailable Unavailable WEHRMAN III MAXIM WEHRANA LAURA IIILUISANA, Unavailable Unavailable LUISANA CHRISTOPHER III, WISE JAM Unavailable Unavailable Purpose Continuity of Care Document - 12-15-2007 through 2016 Problems Code Diagnosis DOS Provider Status D649 ANEMIA 03-12-2017 [facility] I10 ESSENTIAL 03-12-2017 [facility] HYPERTENSIO LA N I498 OTHER 02-22-2017 [facility] SPECIFIED AMBULANCE CARDIAC SERVICE ARRHYTHMIAS J9811 ATELECTASIS 02-22-2017 [facility] K219 GASTRO-ESOP 02-22-2017 [facility] P WITHOUT ESOPHAGITIS R0789 OTHER CHEST 02-22-2017 [facility] R079 CHEST PAIN 02-22-2017 [place] [facility] I208 OTHER FORMS 01-21-2017 [facility] GROUP R0602 SHORTNESS 01-21-2017 [facility] BREATH [facility] GROUP R069 UNSPECIFIED 01-21-2017 [facility] ABNORMALITI GROUP ES OF BREATHING R251 TREMOR 01-17-2017 [facility] R4182 ALTERED 01-17-2017 [facility] MENTAL AMBULANCE STATUS SERVICE UNSPECIFIED I209 ANGINA 01-13-2017 [facility] UNSPECIFIED INC R0600 DYSPNEA 01-13-2017 [facility] INC Z720 TOBACCO USE 01-13-2017 [facility] K93169 OTHER LONG 01-08-2017 [facility] P DRUG THERAPY [id number] PAIN IN 07-23-2016 [facility] DI[facility]NOSTIC SE E876 HYPOKALEMIA 07-05-2016 [facility] K209 ESOPHAGITIS 07-05-2016 [facility] UNSPECIFIED INC K5900 CONSTIPATIO 07-05-2016 [facility] N [facility], UNSPECIFIED PLL N200 CALCULUS OF 07-05-2016 [facility] [facility] R1084 GENERALIZED 07-05-2016 [place] ABDOMINAL [facility] PAIN [facility] R1110 VOMITING 07-05-2016 [place] [facility] R112 NAUSEA WITH 07-05-2016 [facility], UNSPECIFIED [facility] B351 TINEA 05-28-2016 BRAUDIS JAM UNGUIUM Q85568 UNS 05-28-2016 BRAUDIS JAM ATHEROSCLER [place] ART EXTREM BILATERAL LEGS F71613 PAIN IN 05-28-2016 BRAUDIS JAM RIGHT TOES [id number] PAIN IN 05-28-2016 BRAUDIS JAM LEFT TOES J189 PNEUMONIA 05-01-2016 [place] UNSPECIFIED [facility]ICAL ORGANISM IMAGING ASS J984 OTHER 05-01-2016 [place] DISORDERS MEDICAL OF LUNG IMAGING ASS K210 GASTRO-ESOP 05-01-2016 [facility] P DISEASE W/ ESOPHAGITIS R05 COUGH 05-01-2016 [facility] R1010 UPPER 05-01-2016 [facility]BDOM[facility]AL [facility] PAIN SERVICE UNSPECIFIED R109 UNSPECIFIED 10-24-2015 [facility] ABDOMINAL PHYSICIANS PAIN ASSIST R69 ILLNESS 10-24-2015 [facility] UNSPECIFIED TRANSPORTAT ION SER Z791 GROUP HOME 10-24-2015 [facility] CURR PHYSICIANS NON-STEROID ASSIST AL&ANTI-INF LAMMATORIES J219 ACUTE 10-09-2015 [facility] IS INC UNSPECIFIED J441 CHRONIC 10-09-2015 [facility] OBSTRUCTIVE [facility] PULMONARY INC DZ W/EXACERBAT ION E119 TYPE 2 08-22-2015 [facility] DIABETES MOBILE MELLITUS DIAGNOSTIC WITHOUT SE COMPLICATIO NS L24445 PAIN IN 08-22-2015 [place] LEFT HIP [facility] Y73088 PAIN IN 08-22-2015 [place] LEFT KNEE MEDICAL IMAGING ASS C52753 PAIN IN 08-22-2015 [place] LEFT THIGH MEDICAL IM[facility]ING ASS W89100W UNSPECIFIED 08-22-2015 [facility] INJURY MOBILE LEFT HIP DIAGNOSTIC INITIAL SE ENCOUNTER L851 ACQ 08-21-2015 BRAUDIS JAM KERATOSIS KERATODERMA PALMARIS ET PLANTARIS 80728 ABDOMINAL 05-30-2015 [place] PAIN, MEDICAL EPIGASTRIC IMAGING ASS 44650 OTHER 05-21-2015 [place] DYSPNEA AND MEDICAL [place]AG[place] [address] CHEST PAIN 05-21-2015 [place] UNSPECIFIED [facility]ICAL IMAGING ASS 28904 05-21-2015 [facility] TRANSPORTAT ION SER 5180 PULMONARY 05-07-2015 [place] COLLAPSE [facility] 4019 UNSPECIFIED 04-06-2015 [facility] P N 78821 DIVERTICULO 03-25-2015 [place] SIS OF MEDICAL COLON IMAGING ASS 1101 DERMATOPHYT 11-27-2014 BRAUDIS JAM OSIS OF NAIL 39619 ATHEROSCLER 11-27-2014 BRAUDIS JAM OSIS [place] ART EXTREMITIES UNSPEC 7011 ACQUIRED 11-27-2014 BRAUDIS TIFFANIE KERATODERMA 7295 PAIN IN 11-27-2014 BRAUDIS JAM SOFT TISSUES OF LIMB 7862 COUGH 08-16-2014 [facility] 04895 NONSPEC 08-09-2014 [facility] REACT MOBILE TUBERCULIN DIAGNOSTIC SKIN TEST SE W/O ACTIVE TB 515 POSTINFLAMM 06-05-2014 [facility] MEDICAL PULMONARY IMAGING ASS FIBROSIS 7851 PALPITATION 06-05-2014 [place] S [facility] ASS 496 CHRONIC 05-27-2014 [place] AIRWAY MEDICAL OBSTRUCTION IMAGING ASS NEC 6101 DIFFUSE 05-03-2014 [facility] MASTOPATHY PHYS 12125 MASTODYNIA 05-03-2014 JR JR DWI 4928 OTHER 04-25-2014 [place] EMPHYSEMA [facility] 7866 SWELLING, 04-25-2014 [facility] [place] [place] [facility] LU[facility] IN INC CHEST 61222 OTHER 04-25-2014 [place] NONSPECIFIC MEDICAL ABNORMAL IMAGING ASS FINDING OF LUNG FIELD 2768 HYPOPOTASSE 04-05-2014 WEHRMAN III PEG MAXIM 99465 TRANSIENT 02-17-2014 [facility] FLA VISUAL LOSS 47562 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 76337 PSYCHOPHYSI 02-16-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 LYDIA MANSI VISUAL DISTURBANCE S 68196 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-16-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 LYDIA CEREBRAL ARTERY OCCLUSION W/INFARCT 70221 OSTEOARTHRO 09-02-2013 PETTEY JAM SIS UNSPEC WHETHER GEN/LOC LOWER LEG 22478 PAIN IN 09-02-2013 [facility]INT, [facility] LOWER LEG INC 4660 ACUTE 10-22-2012 JR JR BRONCHITIS DWI 490 BRONCHITIS 10-22-2012 LISETTE MAXIM NOT SPECIFIED ACUTE OR CHRONIC 7802 SYNCOPE AND 08-04-2012 [place] COLL[facility]SE [facility] 51596 OTHER CHEST 08-03-2012 BESSON LYDIA PAIN 2749 GOUT, 06-25-2012 [facility] LYDIA UNSPECIFIED 26671 SHORTNESS 06-25-2012 B[facility] LYDIA OF BREATH 4111 INTERMEDIAT 05-28-2012 LISETTE PAN E CORONARY SYNDROME 4139 OTHER AND 05-28-2012 [facility] DANIEL UNSPECIFIED MAXIM ANGINA [place] 53848 OTHER 05-28-2012 [place] DISEASES OF MEDICAL LUNG NOT IMAGING ASS ELSEWHERE CLASSIFIED 5990 URINARY 03-12-2011 [facility] TRACT [facility] INFECTION LA SITE NOT SPECIFIED 36311 OTHER 03-12-2011 [facility] ABNORMAL PHYSICIANS GLUCOSE LA 9597 INJURY 03-12-2011 [facility] OTHER&UNSPE PHYSICIANS CIFIED KNEE LA LEG ANKLE&FOOT 5589 OTH&UNSPEC 02-05-2011 [facility] NONINFECTIO [facility] US INC GASTROENTER ITIS&COLITI S 51476 OTHER 02-05-2011 [facility] MALAISE AND AMBULANCE FATIGUE SERVICE 01016 NAUSEA WITH 02-05-2011 [facility] 24754 DIARRHEA 02-05-2011 [facility] V5869 LONG-TERM 02-05-2011 [facility] (CURRENT) [facility] USE OF INC OTHER MEDICATIONS 700 CORNS AND 01-27-2011 [facility] 8930 OPEN WOUND 01-06-2011 [facility] MENTION COMPLICATIO N 7350 HALLUX 12-16-2010 [facility] 7354 OTHER 12-16-2010 [place] [facility] TOE FOOT PROFESSIONA [place] 8931 OPEN WOUND 12-16-2010 [facility] [address] HEAD 04-03-2010 [facility] INJURY, AMBULANCE UNSPECIFIED SERVICE 920 CONTUSION 04-02-2010 [facility] FACE EMERGENCY SCALP AND SERVICES NECK EXCEPT ASSOCIATES EYE E8889 UNSPECIFIED 04-02-2010 [facility] 5210 DENTAL 03-04-2010 [facility] 7245 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-15-2010 [facility] BACKACHE AMBULANCE SERVICE 18808 ABDOMINAL 01-31-2010 [facility] PAIN, MEDICAL UNSPECIFIED IMAGING SITE ASSOCIATES 18109 ABDOMINAL 01-31-2010 [facility] PAIN, AMBULANCE GENERALIZED SERVICE 61461 ULCER OF 01-30-2010 [facility] ANGY OTHER PART OF FOOT 20647 UNSPECIFIED 01-26-2010 [facility] PERIPHERAL [facility] VERTIGO SERVICES [facility]OC[facility]ATES 7804 DIZZINESS 01-26-2010 [place] [facility] GIDDINESS IMAGING [facility]OC[facility]ATES 7840 HEADACHE 01-26-2010 [facility] AMBULANCE SERVICE 4619 ACUTE 12-02-2009 [facility] SINUSITIS, [facility] PROF SERV 69041 POISONING 09-21-2009 [facility] N EMERGENCY AND RELATED PHYS INC NARCOTICS OTHER V0481 NEED 09-17-2009 CRIS PROPHYLACTI GABI Guzmán VACCINATION &INOCULATIO N FLU 11557 HEMATURIA 07-27-2009 [facility] UNSPECIFIED AMBULANCE SERVICE 85940 ABDOMINAL 07-27-2009 [facility] PAIN OTHER EMERGENCY SPECIFIED SERVICES SITE ASSOCIATES 55967 PAIN IN 04-19-2009 BRITTNEY, JOINT, HAYLEY ANKLE AND FOOT 6829 CELLULITIS 02-23-2009 CRIS, AND ABSCESS GABI Boateng OF UNSPECIFIED SITE 5253 RETAINED 10-18-2008 [facility] DENTAL [facility] FOR [facility]&MAXILL OFACIAL SURGERY 57970 PAIN IN 07-15-2008 [facility] JOINT, AMBULANCE FOREARM SERVICE 70682 SPRAIN AND 07-15-2008 [place] STRAIN OF MEDICAL UNSPECIFIED IMAGING SITE OF ASSOCIATES WRIST E8497 PLACE OF 07-15-2008 [facility] MEDICAL RESIDENTIAL IMAGING ASSOCIATES INSTITUTION E927 OVEREXERTIO 07-15-2008 [place] N&STRENUOUS MEDICAL &REPETITIVE IMAGING ASSOCIATES MVMNTS/LOAD S 57600 OSTEOARTHRO 06-23-2008 Agusto LYNCH INVLV MX GABI W SITES BUT NOT SPEC GEN Allergies, Adverse Reactions, Alerts Clinical Alert Notifications Alert Diabetes: no eye exam in the last 365 days Diabetes: no lipid panel in the last 365 days Medications Na ND Rx Da Fi Fi Am Da Di Ph RX Ph St me C No te ll ll ou ys ag ar # ys at rm s nt no ma ic us Or Da si cy ia de te s n re d GA 65 07 07 42 14 00 ME Ac BA 86 -0 -2 .0 00 D ti PE 20 3- 8- 00 14 CA ve NT 19 20 20 51 RE IN 80 17 17 86 1 68 PH 10 AR 0 MA MG CY CA PS UL E LO 00 07 07 42 14 00 ME Ac RA 60 -0 -2 .0 00 D ti ZE 34 3- 8- 00 14 CA ve PA 24 20 20 50 RE M 73 17 17 62 1 2 26 PH MG AR MA TA CY BL ET BE 00 07 07 60 30 00 ME Ac NZ 83 -0 -2 .0 00 D ti TR 21 5- 8- 00 14 CA ve OP 08 20 20 52 RE IN 10 17 17 31 E 0 99 PH ME AR S MA 1 CY MG TA BL ET LO 00 07 07 30 30 00 ME Ac RA 78 -0 -2 .0 00 D ti TA 15 5- 8- 00 14 CA ve DI 07 20 20 53 RE NE 70 17 17 11 1 24 PH 10 AR MA MG CY TA BL ET PO 62 07 07 90 30 00 ME Ac TA 03 -0 -2 .0 00 D ti SS 70 7- 8- 00 14 CA ve IU 99 20 20 53 RE M 90 17 17 76 CL 1 60 PH AR ER MA CY 20 ME Q TA BL ET CI 13 07 07 30 30 00 ME Ac TA 66 -0 -2 .0 00 D ti LO 80 7- 8- 00 14 CA ve ND 01 20 20 53 RE AM 00 17 17 76 5 67 PH HB AR R MA 20 CY MG TA BL ET OL 60 07 07 30 30 00 ME Ac AN 50 -0 -2 .0 00 D ti ZA 53 7- 8- 00 14 CA ve PI 11 20 20 53 RE NE 30 17 17 76 3 66 PH 10 AR MA MG CY TA BL ET PA 00 07 07 30 30 00 ME Ac NT 09 -0 -2 .0 00 D ti OP 30 6- 8- 00 14 CA ve RA 01 20 20 53 RE ZO 29 17 17 35 LE 8 31 PH AR SO MA D CY DR 40 MG TA B TR 00 07 07 30 30 00 ME Ac IA 78 -0 -2 .0 00 D ti MT 11 6- 8- 00 14 CA ve ER 00 20 20 53 RE EN 80 17 17 35 E- 5 23 PH HC AR TZ MA CY 75 -5 0 MG TA B AL 00 07 07 60 30 00 ME Ac LO 37 -0 -2 .0 00 D ti PU 80 6- 8- 00 14 CA ve RI 13 20 20 53 RE NO 70 17 17 35 L 1 21 PH 10 AR 0 MA MG CY TA BL ET 00 06 07 30 30 00 ME Ac PI 53 -2 -2 .0 00 D ti RI 61 6- 1- 00 14 CA ve N 00 20 20 45 RE EC 44 17 17 75 1 53 PH 81 AR MA MG CY TA BL ET AT 60 06 07 30 30 00 ME Ac OR 50 -2 -2 .0 00 D ti VA 52 7- 1- [address] 57 20 20 46 RE AT 80 17 17 84 IN 9 07 PH AR 10 MA CY MG TA BL ET LO 00 06 07 42 14 00 ME Ac RA 60 -2 -1 .0 00 D ti ZE 34 0- 4- 00 14 CA ve PA 24 20 20 42 RE M 73 17 17 52 1 2 58 PH MG AR MA TA CY BL ET BA 00 06 07 60 30 00 ME Ac CL 17 -2 -1 .0 00 D ti OF 24 2- 4- 00 14 CA ve EN 09 20 20 44 RE 78 17 17 43 20 0 37 PH AR MG MA CY TA BL ET GA 65 06 07 30 10 00 ME Ac BA 86 -2 -1 .0 00 D ti PE 20 2- 4- 00 14 CA ve NT 19 20 20 45 RE IN 80 17 17 24 1 33 PH 10 AR 0 MA MG CY CA PS UL E LO 00 06 07 42 14 00 ME Ac RA 60 -0 -0 .0 00 D ti ZE 34 8- 7- 00 14 CA ve PA 24 20 20 34 RE M 73 17 17 53 1 2 41 PH MG AR MA TA CY BL ET CI 13 06 07 30 30 00 ME Ac TA 66 -0 -0 .0 00 D ti LO 80 8- 7- 00 14 CA ve ND 01 20 20 35 RE AM 00 17 17 89 5 57 PH HB AR R MA 20 CY MG TA BL ET OL 60 06 07 30 30 00 ME Ac AN 50 -0 -0 .0 00 D ti ZA 53 8- 7- 00 14 CA ve PI 11 20 20 35 RE NE 30 17 17 89 3 56 PH 10 AR MA MG CY TA BL ET PO 63 06 07 90 30 00 ME Ac TA 73 -0 -0 .0 00 D ti SS 90 8- 7- 00 14 CA ve IU 44 20 20 35 RE M 71 17 17 89 CL 0 52 PH AR ER MA CY 20 ME Q TA BL ET RO 00 06 07 47 15 00 ME Ac BA 90 -0 -0 3. 00 D ti FE 40 6- 7- 00 14 CA ve N- 05 20 20 0 34 RE DM 31 17 17 31 6 57 PH SY AR RU MA P CY AL 00 06 07 60 30 00 ME Ac LO 37 -0 -0 .0 00 D ti PU 80 7- 7- 00 14 CA ve RI 13 20 20 33 RE NO 70 17 17 61 L 1 52 PH 10 AR 0 MA MG CY TA BL ET TR 00 06 07 30 30 00 ME Ac IA 78 -0 -0 .0 00 D ti MT 11 7- 7- 00 14 CA ve ER 00 20 20 33 RE EN 80 17 17 61 E- 5 54 PH HC AR TZ MA CY 75 -5 0 MG TA B PA 00 06 07 30 30 00 ME Ac NT 09 -0 -0 .0 00 D ti OP 30 7- 7- 00 14 CA ve RA 01 20 20 33 RE ZO 29 17 17 61 LE 8 62 PH AR SO MA D CY DR 40 MG TA B LO 00 06 07 30 30 00 ME Ac RA 78 -0 -0 .0 00 D ti TA 15 5- 7- 00 14 CA ve DI 07 20 20 32 RE NE 70 17 17 96 1 11 PH 10 AR MA MG CY TA BL ET ND 59 06 07 28 7 00 ME Ac OC 74 -0 -0 .0 00 D ti HL 60 5- 7- 00 14 CA ve OR 11 20 20 33 RE PE 50 17 17 28 RA 6 62 PH ZI AR NE MA CY 10 MG TA B BE 00 06 07 60 30 00 ME Ac NZ 60 -0 -0 .0 00 D ti TR 32 6- 7- 00 14 CA ve OP 43 20 20 33 RE IN 42 17 17 19 E 1 61 PH ME AR S MA 1 CY MG TA BL ET BU 00 06 06 60 30 00 ME Ac SP 09 -0 -2 .0 00 D ti IR 30 3- 3- 00 14 CA ve ON 05 20 20 31 RE E 40 17 17 30 HC 1 33 PH L AR 10 MA CY MG TA BL ET AT 60 05 06 30 30 00 ME Ac OR 50 -2 -2 .0 00 D ti VA 52 9- 3- [address] 57 20 20 26 RE AT 80 17 17 07 IN 9 55 PH AR 10 MA CY MG TA BL ET 00 05 06 30 30 00 ME Ac PI 53 -2 -2 .0 00 D ti RI 61 9- 3- 00 14 CA ve N 00 20 20 26 RE EC 44 17 17 93 1 60 PH 81 AR MA MG CY TA BL ET BA 00 05 06 60 30 00 ME Ac CL 17 -2 -1 .0 00 D ti OF 24 5- 6- 00 14 CA ve EN 09 20 20 24 RE 78 17 17 70 20 0 73 PH AR MG MA CY TA BL ET LO 00 05 06 42 14 00 ME Ac RA 60 -2 -1 .0 00 D ti ZE 34 6- 6- 00 14 CA ve PA 24 20 20 23 RE M 73 17 17 09 1 2 01 PH MG AR MA TA CY BL ET BE 00 05 06 60 30 00 ME Ac NZ 83 -0 -0 .0 00 D ti TR 21 8- 2- 00 14 CA ve OP 08 20 20 15 RE IN 10 17 17 68 E 0 33 PH ME AR S MA 1 CY MG TA BL ET TR 00 05 06 30 30 00 ME Ac IA 78 -1 -0 .0 00 D ti MT 11 0- 2- 00 14 CA ve ER 00 20 20 17 RE EN 80 17 17 15 E- 5 15 PH HC AR TZ MA CY 75 -5 0 MG TA B AL 00 05 06 60 30 00 ME Ac LO 37 -1 -0 .0 00 D ti PU 80 0- 2- 00 14 CA ve RI 13 20 20 17 RE NO 70 17 17 15 L 1 13 PH 10 AR 0 MA MG CY TA BL ET PA 00 05 06 30 30 00 ME Ac NT 09 -1 -0 .0 00 D ti OP 30 0- 2- 00 14 CA ve RA 01 20 20 17 RE ZO 29 17 17 15 LE 8 25 PH AR SO MA D CY DR 40 MG TA B LO 00 05 06 30 30 00 ME Ac RA 78 -0 -0 .0 00 D ti TA 15 8- 2- 00 14 CA ve DI 07 20 20 16 RE NE 70 17 17 68 1 78 PH 10 AR MA MG CY TA BL ET OL 60 05 06 30 30 00 ME Ac AN 50 -1 -0 .0 00 D ti ZA 53 2- 2- 00 14 CA ve PI 11 20 20 18 RE NE 30 17 17 35 3 72 PH 10 AR MA MG CY TA BL ET PO 63 05 06 90 30 00 ME Ac TA 73 -1 -0 .0 00 D ti SS 90 2- 2- 00 14 CA ve IU 44 20 20 18 RE M 71 17 17 35 CL 0 66 PH AR ER MA CY 20 ME Q TA BL ET CI 65 05 06 30 30 00 ME Ac TA 86 -1 -0 .0 00 D ti LO 20 2- 2- 00 14 CA ve ND 00 20 20 18 RE AM 60 17 17 35 5 73 PH HB AR R MA 20 CY MG TA BL ET LO 00 05 06 42 14 00 ME Ac RA 60 -1 -0 .0 00 D ti ZE 34 2- 2- 00 14 CA ve PA 24 20 20 18 RE M 73 17 17 05 1 2 27 PH MG AR MA TA CY BL ET GA 65 05 05 90 30 00 ME Ac BA 86 -0 -2 .0 00 D ti PE 20 5- 6- 00 14 CA ve NT 19 20 20 14 RE IN 80 17 17 76 1 97 PH 10 AR 0 MA MG CY CA PS UL E BU 00 05 05 60 30 00 ME Ac SP 09 -0 -2 .0 00 D ti IR 30 5- 6- 00 14 CA ve ON 05 20 20 14 RE E 40 17 17 77 HC 1 13 PH L AR 10 MA CY MG TA BL ET LO 00 05 05 30 10 00 ME Ac RA 60 -0 -2 .0 00 D ti ZE 34 2- 6- 00 14 CA ve PA 24 20 20 13 RE M 73 17 17 69 1 2 15 PH MG AR MA TA CY BL ET AT 60 05 05 30 30 00 ME Ac OR 50 -0 -2 .0 00 D ti VA 52 2- 6- [address] 57 20 20 13 RE AT 80 17 17 47 IN 9 70 PH AR 10 MA CY MG TA BL ET 00 05 05 30 30 00 ME Ac PI 53 -0 -2 .0 00 D ti RI 61 2- 6- 00 14 CA ve N 00 20 20 12 RE EC 44 17 17 46 1 47 PH 81 AR MA MG CY TA BL ET BA 00 04 05 60 30 00 ME Ac CL 17 -2 -1 .0 00 D ti OF 24 7- 9- 00 14 CA ve EN 09 20 20 10 RE 78 17 17 44 20 0 94 PH AR MG MA CY TA BL ET LO 00 04 05 30 10 00 ME Ac RA 60 -2 -1 .0 00 D ti ZE 34 1- 2- 00 14 CA ve PA 24 20 20 08 RE M 73 17 17 99 1 2 02 PH MG AR MA TA CY BL ET BE 00 03 05 60 30 00 ME Ac NZ 83 -3 -0 .0 00 D ti TR 21 1- 5- 00 13 CA ve OP 08 20 20 97 RE IN 10 17 17 53 E 0 61 PH ME AR S MA 1 CY MG TA BL ET LO 00 04 05 30 30 00 ME Ac RA 78 -0 -0 .0 00 D ti TA 15 3- 5- 00 13 CA ve DI 07 20 20 98 RE NE 70 17 17 21 1 35 PH 10 AR MA MG CY TA BL ET 00 04 05 30 30 00 ME Ac PI 53 -0 -0 .0 00 D ti RI 61 3- 5- 00 13 CA ve N 00 20 20 98 RE EC 44 17 17 21 1 50 PH 81 AR MA MG CY TA BL ET AT 60 04 05 30 30 00 ME Ac OR 50 -0 -0 .0 00 D ti VA 52 3- 5- [address] 57 20 20 98 RE AT 80 17 17 21 IN 9 51 PH AR 10 MA CY MG TA BL ET OL 60 04 05 30 30 00 ME Ac AN 50 -0 -0 .0 00 D ti ZA 53 3- 5- 00 13 CA ve PI 11 20 20 98 RE NE 30 17 17 03 3 75 PH 10 AR MA MG CY TA BL ET BU 00 04 05 60 30 00 ME Ac SP 09 -0 -0 .0 00 D ti IR 30 6- 5- 00 14 CA ve ON 05 20 20 00 RE E 40 17 17 13 HC 5 76 PH L AR 10 MA CY MG TA BL ET LO 00 04 05 30 10 00 ME Ac RA 60 -0 -0 .0 00 D ti ZE 34 3- 5- 00 13 CA ve PA 24 20 20 98 RE M 73 17 17 39 1 2 74 PH MG AR MA TA CY BL ET BA 00 03 05 60 30 00 ME Ac CL 17 -2 -0 .0 00 D ti OF 24 9- 5- 00 13 CA ve EN 09 20 20 95 RE 78 17 17 99 20 0 61 PH AR MG MA CY TA BL ET GA 65 04 05 90 30 00 ME Ac BA 86 -0 -0 .0 00 D ti PE 20 7- 5- 00 13 CA ve NT 19 20 20 99 RE IN 80 17 17 45 1 72 PH 10 AR 0 MA MG CY CA PS UL E TR 00 04 05 30 30 00 ME Ac IA 78 -1 -0 .0 00 D ti MT 11 2- 5- 00 14 CA ve ER 00 20 20 02 RE EN 80 17 17 97 E- 5 58 PH HC AR TZ MA CY 75 -5 0 MG TA B PA 00 04 05 30 30 00 ME Ac NT 09 -1 -0 .0 00 D ti OP 30 2- 5- 00 14 CA ve RA 01 20 20 02 RE ZO 29 17 17 97 LE 8 71 PH AR SO MA D CY DR 40 MG TA B PO 62 04 05 90 30 00 ME Ac TA 03 -1 -0 .0 00 D ti SS 70 4- 5- 00 14 CA ve IU 99 20 20 04 RE M 90 17 17 54 CL 1 89 PH AR ER MA CY 20 ME Q TA BL ET CI 65 04 05 30 30 00 ME Ac TA 86 -1 -0 .0 00 D ti LO 20 4- 5- 00 14 CA ve ND 00 20 20 04 RE AM 60 17 17 54 5 95 PH HB AR R MA 20 CY MG TA BL ET LO 00 03 04 42 14 00 ME Ac RA 60 -2 -1 .0 00 D ti ZE 34 0- 4- 00 13 CA ve PA 24 20 20 91 RE M 73 17 17 48 1 2 45 PH MG AR MA TA CY BL ET CE 68 03 04 40 10 00 ME Ac PH 18 -1 -0 .0 00 D ti AL 00 3- 7- 00 13 CA ve EX 12 20 20 88 RE IN 20 17 17 50 2 04 PH 50 AR 0 MA MG CY CA PS UL E CI 65 03 04 30 30 00 ME Ac TA 86 -1 -0 .0 00 D ti LO 20 7- 7- 00 13 CA ve ND 00 20 20 90 RE AM 60 17 17 65 5 81 PH HB AR R MA 20 CY MG TA BL ET PO 62 03 04 90 30 00 ME Ac TA 03 -1 -0 .0 00 D ti SS 70 7- 7- 00 13 CA ve IU 99 20 20 90 RE M 90 17 17 65 CL 1 69 PH AR ER MA CY 20 ME Q TA BL ET PA 00 03 04 30 30 00 ME Ac NT 09 -1 -0 .0 00 D ti OP 30 4- 7- 00 13 CA ve RA 01 20 20 88 RE ZO 29 17 17 22 LE 8 81 PH AR SO MA D CY DR 40 MG TA B TR 00 03 04 30 30 00 ME Ac IA 78 -1 -0 .0 00 D ti MT 11 4 7- 00 13 CA ve ER 00 20 20 88 RE EN 80 17 17 22 E- 5 64 PH HC AR TZ MA CY 75 -5 0 MG TA B AL 00 03 04 60 30 00 ME Ac LO 37 -1 -0 .0 00 D ti PU 80 5- 7- 00 13 CA ve RI 13 20 20 89 RE NO 70 17 17 25 L 1 80 PH 10 AR 0 MA MG CY TA BL ET OL 60 03 03 30 30 00 ME Ac AN 50 -0 -3 .0 00 D ti ZA 53 7- 1- 00 13 CA ve PI 11 20 20 84 RE NE 30 17 17 80 3 66 PH 10 AR MA MG CY TA BL ET AT 60 03 03 30 30 00 ME Ac OR 50 -0 -3 .0 00 D ti VA 52 7- 1- [address] 57 20 20 86 RE AT 80 17 17 04 IN 9 30 PH AR 10 MA CY MG TA BL ET LO 00 03 03 42 14 00 ME Ac RA 60 -0 -3 .0 00 D ti ZE 34 6- 1- 00 13 CA ve PA 24 20 20 84 RE M 73 17 17 49 1 2 66 PH MG AR MA TA CY BL ET 00 03 03 30 30 00 ME Ac PI 53 -0 -3 .0 00 D ti RI 61 7- 1- 00 13 CA ve N 00 20 20 86 RE EC 44 17 17 04 1 29 PH 81 AR MA MG CY TA BL ET BU 00 03 03 60 30 00 ME Ac SP 09 -0 -3 .0 00 D ti IR 30 8- 1- 00 13 CA ve ON 05 20 20 85 RE E 40 17 17 60 HC 5 66 PH L AR 10 MA CY MG TA BL ET BA 00 02 03 60 30 00 ME Ac CL 17 -2 -2 .0 00 D ti OF 24 8- 4- 00 13 CA ve EN 09 20 20 81 RE 78 17 17 12 20 0 50 PH AR MG MA CY TA BL ET LO 00 03 03 30 30 00 ME Ac RA 78 -0 -2 .0 00 D ti TA 15 3- 4- 00 13 CA ve DI 07 20 20 83 RE NE 70 17 17 76 1 04 PH 10 AR MA MG CY TA BL ET BE 00 03 03 60 30 00 ME Ac NZ 60 -0 -2 .0 00 D ti TR 32 2- 4- 00 13 CA ve OP 43 20 20 82 RE IN 43 17 17 89 E 2 94 PH ME AR S MA 1 CY MG TA BL ET GA 65 03 03 45 15 00 ME Ac BA 86 -0 -2 .0 00 D ti PE 20 2- 4- 00 13 CA ve NT 19 20 20 82 RE IN 80 17 17 89 1 98 PH 10 AR 0 MA MG CY CA PS UL E LO 00 02 03 42 14 00 ME Ac RA 60 -2 -1 .0 00 D ti ZE 34 1- 7- 00 13 CA ve PA 24 20 20 77 RE M 73 17 17 76 1 2 28 PH MG AR MA TA CY BL ET TR 00 02 03 30 30 00 ME Ac IA 78 -1 -1 .0 00 D ti MT 11 3- 0- 00 13 CA ve ER 00 20 20 73 RE EN 80 17 17 41 E- 5 78 PH HC AR TZ MA CY 75 -5 0 MG TA B PA 00 02 03 30 30 00 ME Ac NT 09 -1 -1 .0 00 D ti OP 30 3- 0- 00 13 CA ve RA 01 20 20 73 RE ZO 29 17 17 41 LE 8 89 PH AR SO MA D CY DR 40 MG TA B LO 00 02 03 42 14 00 ME Ac RA 60 -0 -1 .0 00 D ti ZE 34 8- 0- 00 13 CA ve PA 24 20 20 71 RE M 73 17 17 46 1 2 41 PH MG AR MA TA CY BL ET MA 00 02 03 12 30 00 ME Ac PA 90 -1 -1 0. 00 D ti P 41 0- 0- 00 13 CA ve 50 98 20 20 0 73 RE 0 86 17 17 21 MG 1 85 PH AR TA MA BL CY ET BU 00 02 03 60 30 00 ME Ac SP 09 -0 -1 .0 00 D ti IR 30 7- 0- 00 13 CA ve ON 05 20 20 70 RE E 40 17 17 85 HC 5 54 PH L AR 10 MA CY MG TA BL ET AL 00 02 03 60 30 00 ME Ac LO 37 -1 -1 .0 00 D ti PU 80 4- 0- 00 13 CA ve RI 13 20 20 74 RE NO 70 17 17 09 L 1 89 PH 10 AR 0 MA MG CY TA BL ET 00 02 03 30 30 00 ME Ac PI 53 -1 -1 .0 00 D ti RI 63 7- 0- 00 13 CA ve N 31 20 20 76 RE EC 30 17 17 37 1 58 PH 32 AR 5 MA MG CY TA BL ET PO 62 02 03 90 30 00 ME Ac TA 03 -1 -1 .0 00 D ti SS 70 7- 0- 00 13 CA ve IU 99 20 20 76 RE M 90 17 17 37 CL 1 66 PH AR ER MA CY 20 ME Q TA BL ET CI 65 02 03 30 30 00 ME Ac TA 86 -1 -1 .0 00 D ti LO 20 7- 0- 00 13 CA ve ND 00 20 20 76 RE AM 60 17 17 37 5 73 PH HB AR R MA 20 CY MG TA BL ET BE 00 02 02 60 30 00 ME Ac NZ 60 -0 -2 .0 00 D ti TR 32 1- 4- 00 13 CA ve OP 43 20 20 68 RE IN 43 17 17 08 E 2 90 PH ME AR S MA 1 CY MG TA BL ET GA 65 02 02 90 30 00 ME Ac BA 86 -0 -2 .0 00 D ti PE 20 1- 4- 00 13 CA ve NT 19 20 20 68 RE IN 80 17 17 08 1 97 PH 10 AR 0 MA MG CY CA PS UL E LO 00 02 02 30 30 00 ME Ac RA 78 -0 -2 .0 00 D ti TA 15 2- 4- 00 13 CA ve DI 07 20 20 69 RE NE 70 17 17 22 1 91 PH 10 AR MA MG CY TA BL ET OL 60 02 02 5. 5 00 ME Ac AN 50 -0 -2 00 00 D ti ZA 53 3- 4- 0 13 CA ve PI 11 20 20 69 RE NE 30 17 17 59 3 34 PH 10 AR MA MG CY TA BL ET BA 00 01 02 60 30 00 ME Ac CL 17 -3 -2 .0 00 D ti OF 24 0- 4- 00 13 CA ve EN 09 20 20 66 RE 78 17 17 60 20 0 84 PH AR MG MA CY TA BL LL ET C AL 00 01 02 60 30 00 ME Ac LO 37 -1 -1 .0 00 D ti PU 80 6- 7- 00 13 CA ve RI 13 20 20 59 RE NO 70 17 17 92 L 1 90 PH 10 AR 0 MA MG CY TA LL BL C ET LA 00 01 02 47 [address] 60 -1 -1 3. 00 D ti UL 31 6- 7- 00 13 CA ve OS 37 20 20 0 61 RE E 85 17 17 24 10 8 06 PH AR GM MA /1 CY 5 ML LL C SO JARON TI ON LO 00 01 02 42 14 00 ME Ac RA 60 -2 -1 .0 00 D ti ZE 34 6- 7- 00 13 CA ve PA 24 20 20 65 RE M 73 17 17 43 1 2 11 PH MG AR MA TA CY BL ET LL C 00 01 02 30 30 00 ME Ac PI 53 -2 -1 .0 00 D ti RI 63 0- 7- 00 13 CA ve N 31 20 20 62 RE EC 30 17 17 61 1 86 PH 32 AR 5 MA MG CY TA LL BL C ET CI 13 01 02 30 30 00 ME Ac TA 66 -2 -1 .0 00 D ti LO 80 0- 7- 00 13 CA ve ND 01 20 20 62 RE AM 00 17 17 62 5 06 PH HB AR R MA 20 CY MG LL C TA BL ET PO 62 01 02 90 30 00 ME Ac TA 03 -2 -1 .0 00 D ti SS 70 0- 7- 00 13 CA ve IU 99 20 20 62 RE M 90 17 17 61 CL 1 99 PH AR ER MA CY 20 LL ME C Q TA BL ET BU 00 01 02 60 30 00 ME Ac SP 09 -0 -0 .0 00 D ti IR 30 9- 3- 00 13 CA ve ON 05 20 20 56 RE E 40 17 17 73 HC 1 27 PH L AR 10 MA CY MG LL TA C BL ET LO 00 01 02 42 14 00 ME Ac RA 60 -1 -0 .0 00 D ti ZE 34 2- 3- 00 13 CA ve PA 24 20 20 58 RE M 73 17 17 71 1 2 01 PH MG AR MA TA CY BL ET LL C PA 00 01 02 30 30 00 ME Ac NT 09 -1 -0 .0 00 D ti OP 30 4- 3- 00 13 CA ve RA 01 20 20 59 RE ZO 29 17 17 51 LE 8 16 PH AR SO MA D CY DR LL 40 C MG TA B TR 00 02 30 30 00 ME Ac IA 78 -1 -0 .0 00 D ti MT 11 4- 3- 00 13 CA ve ER 00 20 20 59 RE EN 80 17 17 51 E- 5 05 PH HC AR TZ MA CY 75 -5 LL 0 C MG TA B LO 00 11 09 30 30 00 ME Ac RA 78 -0 -2 .0 00 D ti TA 15 3- 7- 00 13 CA ve DI 07 20 20 54 RE NE 70 17 17 48 1 92 PH 10 AR MA MG CY TA LL BL C ET BE 00 11 09 60 30 00 ME Ac NZ 60 -0 -2 .0 00 D ti TR 32 2- 7- 00 13 CA ve OP 43 20 20 52 RE IN 43 17 17 98 E 2 65 PH ME AR S MA 1 CY MG LL TA C BL ET GA 67 01 90 30 00 ME Ac BA 87 -0 -2 .0 00 D ti PE 70 2- 7- 00 13 CA ve NT 22 20 20 52 RE IN 20 17 17 98 5 73 PH 10 AR 0 MA MG CY CA LL PS C UL E OL 60 01 30 30 00 ME Ac AN 50 -0 -2 .0 00 D ti ZA 53 4- 7- 00 13 CA ve PI 11 20 20 54 RE NE 30 17 17 32 3 66 PH 10 AR MA MG CY TA LL BL C ET LO 00 12 01 42 14 00 ME Ac RA 60 -2 -2 .0 00 D ti ZE 34 9- 0- 00 13 CA ve PA 24 20 20 51 RE M 73 16 17 44 1 2 52 PH MG AR MA TA CY BL ET LL C BA 00 12 60 30 00 ME Ac CL 17 -3 -2 .0 00 D ti OF 24 1- 0- 00 13 CA ve EN 09 20 20 52 RE 78 16 17 58 20 0 78 PH AR MG MA CY TA BL LL ET C CI 13 12 30 30 00 ME Ac TA 66 -2 -1 .0 00 D ti LO 80 1- 3- 00 13 CA ve ND 01 20 20 47 RE AM 00 16 17 56 5 86 PH HB AR R MA 20 CY MG LL C TA BL ET 00 12 30 30 00 ME Ac PI 53 -1 -0 .0 00 D ti RI 63 2- 9- 00 13 CA ve N 31 20 20 43 RE EC 30 16 17 48 1 31 PH 32 AR 5 MA MG CY TA LL BL C ET TR 00 12 01 30 30 00 ME Ac IA 78 -1 -0 .0 00 D ti MT 11 6 9 00 13 CA ve ER 00 20 20 45 RE EN 80 16 17 37 E- 5 49 PH HC AR TZ MA CY 75 -5 LL 0 C MG TA B PA 00 12 01 30 30 00 ME Ac NT 09 -1 -0 .0 00 D ti OP 30 9 00 13 CA ve RA 01 20 20 45 RE ZO 29 16 17 37 LE 8 66 PH AR SO MA D CY DR LL 40 C MG TA B LO 00 12 01 42 14 00 ME Ac RA 60 -1 -0 .0 00 D ti ZE 34 9 13 CA ve PA 24 20 20 45 RE M 73 16 17 56 1 2 45 PH MG AR MA TA CY BL ET LL C 00 06 09 3 30 30 ME 56 AR Ac 06 -0 -0 .0 D 18 NO ti 76 6- 4- 00 CA 30 LD ve 07 20 20 RE 5 03 11 11 RI 0 PH CH AR AR MA D CY W LL C 00 06 08 3 30 30 ME 56 AR Ac 06 -0 -0 .0 D 18 NO ti 76 6- 5- 00 CA 30 LD ve 07 20 20 RE 5 03 11 11 RI 0 PH CH AR AR MA D CY W LL C 00 12 08 3 11 3 ME 50 AR Ac 12 -0 -0 8. D 90 NO ti 10 3- 2- 00 CA 71 LD ve 63 20 20 0 RE 8 80 10 11 RI 4 PH CH AR AR MA D CY W LL C BE 68 07 07 3 30 10 ME 57 WE Ac NZ 38 -0 -0 .0 D 41 HR ti ON 20 8 8- 00 CA 09 MA ve AT 24 20 20 RE 6 N AT 80 11 11 II E 1 PH I 20 AR WI 0 MA LL MG CY IA M CA LL E PS C UL E 00 06 07 3 30 30 ME 56 AR Ac 06 -0 -0 .0 D 18 NO ti 76 6- 6- 00 CA 30 LD ve 07 20 20 RE 5 03 11 11 RI 0 PH CH AR AR MA D CY W LL C 00 06 06 3 30 30 ME 56 AR Ac 06 -0 -0 .0 D 18 NO ti 76 6- 6- 00 CA 30 LD ve 07 20 20 RE 5 03 11 11 RI 0 PH CH AR AR MA D CY W LL C MA 00 01 06 3 20 3 ME 52 AR Ac PA 90 -1 -0 .0 D 15 NO ti P 41 4- 3- 00 CA 36 LD ve 32 98 20 20 RE 8 5 26 11 11 RI MG 1 PH CH AR AR TA MA D BL CY W ET LL C 00 02 05 3 30 30 ME 52 AR Ac 06 -0 -0 .0 D 68 NO ti 76 9- 9- 00 CA 54 LD ve 07 20 20 RE 5 03 11 11 RI 0 PH CH AR AR MA D CY W LL C MA 00 01 04 3 20 3 ME 52 AR Ac PA 90 -1 -1 .0 D 15 NO ti P 41 4- 9- 00 CA 36 LD ve 32 98 20 20 RE 8 5 26 11 11 RI MG 1 PH CH AR AR TA MA D BL CY W ET LL C 00 02 04 3 30 30 ME 52 AR Ac 06 -0 -1 .0 D 68 NO ti 76 9- 0- 00 CA 54 LD ve 07 20 20 RE 5 03 11 11 RI 0 PH CH AR AR MA D CY W LL C MA 00 01 03 3 20 3 ME 52 AR Ac PA 90 -1 -1 .0 D 15 NO ti P 41 4- 1- 00 CA 36 LD ve 32 98 20 20 RE 8 5 26 11 11 RI MG 1 PH CH AR AR TA MA D BL CY W ET LL C 00 02 03 3 30 30 ME 52 AR Ac 06 -0 -1 .0 D 68 NO ti 76 9- 1- 00 CA 54 LD ve 07 20 20 RE 5 03 11 11 RI 0 PH CH AR AR MA D CY W LL C 00 02 02 3 30 30 ME 52 AR Ac 06 -0 -0 .0 D 68 NO ti 76 9- 9- 00 CA 54 LD ve 07 20 20 RE 5 03 11 11 RI 0 PH CH AR AR MA D CY W LL C TR 45 02 02 3 85 5 ME 52 AR Ac OL 80 -0 -0 .0 D 85 NO ti AM 20 7- 7- 00 CA 21 LD ve IN 35 20 20 RE 6 E 65 11 11 RI SA 3 PH CH LI AR AR CY MA D LA CY W TE LL 10 C % CR EA M MA 00 01 01 3 20 3 ME 52 AR Ac PA 90 -1 -1 .0 D 15 NO ti P 41 4- 4- 00 CA 36 LD ve 32 98 20 20 RE 8 5 26 11 11 RI MG 1 PH CH AR AR TA MA D BL CY W ET LL C 00 10 01 3 30 30 ME 49 AR Ac 06 -1 -1 .0 D 30 NO ti 76 2- 0- 00 CA 50 LD ve 07 20 20 RE 3 03 10 11 RI 0 PH CH AR AR MA D CY W LL C 00 10 12 3 30 30 ME 49 AR Ac 06 -1 -1 .0 D 30 NO ti 76 2- 1- 00 CA 50 LD ve 07 20 20 RE 3 03 10 10 RI 0 PH CH AR AR MA D CY W LL C 00 12 12 3 11 3 ME 50 AR Ac 12 -0 -0 8. D 90 NO ti 10 3- 3- 00 CA 71 LD ve 63 20 20 0 RE 8 80 10 10 RI 4 PH CH AR AR MA D CY W LL C MA 00 06 11 3 20 3 ME 46 AR Ac PA 90 -1 -1 .0 D 21 NO ti P 41 4- 6- 00 CA 89 LD ve 32 98 20 20 RE 7 5 26 10 10 RI MG 1 PH CH AR AR TA MA D BL CY W ET LL C 00 10 11 3 30 30 ME 49 AR Ac 06 -1 -1 .0 D 30 NO ti 76 2- 1- 00 CA 50 LD ve 07 20 20 RE 3 03 10 10 RI 0 PH CH AR AR MA D CY W LL C MA 00 06 10 3 20 3 ME 46 AR Ac PA 90 -1 -1 .0 D 21 NO ti P 41 4- 3- 00 CA 89 LD ve 32 98 20 20 RE 7 5 26 10 10 RI MG 1 PH CH AR AR TA MA D BL CY W ET LL C 00 10 10 3 30 30 ME 49 AR Ac 06 -1 -1 .0 D 30 NO ti 76 2- 2- 00 CA 50 LD ve 07 20 20 RE 3 03 10 10 RI 0 PH CH AR AR MA D CY W LL C 00 09 09 3 23 3 ME 48 AR Ac 12 -1 -1 6. D 77 NO ti 10 6- 6- 00 CA 63 LD ve 63 20 20 0 RE 8 80 10 10 RI 4 PH CH AR AR MA D CY W LL C 00 06 09 3 30 30 ME 46 AR Ac 06 -1 -1 .0 D 00 NO ti 76 3- 2- 00 CA 17 LD ve 07 20 20 RE 8 03 10 10 RI 0 PH CH AR AR MA D CY W LL C MA 00 06 08 3 20 3 ME 46 AR Ac PA 90 -1 -2 .0 D 21 NO ti P 41 4- 8- 00 CA 89 LD ve 32 98 20 20 RE 7 5 26 10 10 RI MG 1 PH CH AR AR TA MA D BL CY W ET LL C 00 06 08 3 30 30 ME 46 AR Ac 06 -1 -1 .0 D 00 NO ti 76 3- 3- 00 CA 17 LD ve 07 20 20 RE 8 03 10 10 RI 0 PH CH AR AR MA D CY W LL C TH 00 07 08 3 30 30 ME 46 AR Ac ER 90 -0 -0 .0 D 58 NO ti A 40 8- 7- 00 CA 23 LD ve TA 53 20 20 RE 8 BL 96 10 10 RI ET 1 PH CH AR AR MA D CY W LL C 00 06 07 3 30 30 ME 46 AR Ac 06 -1 -1 .0 D 00 NO ti 76 3- 4- 00 CA 17 LD ve 07 20 20 RE 8 03 10 10 RI 0 PH CH AR AR MA D CY W LL C TH 00 07 07 3 30 30 ME 46 AR Ac ER 90 -0 -0 .0 D 58 NO ti A 40 8- 8- 00 CA 23 LD ve TA 53 20 20 RE 8 BL 96 10 10 RI ET 1 PH CH AR AR MA D CY W LL C MA 00 06 06 3 20 3 ME 46 AR Ac PA 90 -1 -1 .0 D 21 NO ti P 41 4- 4- 00 CA 89 LD ve 32 98 20 20 RE 7 5 26 10 10 RI MG 1 PH CH AR AR TA MA D BL CY W ET LL C 00 06 06 3 30 30 ME 46 AR Ac 06 -1 -1 .0 D 00 NO ti 76 3- 3- 00 CA 17 LD ve 07 20 20 RE 8 03 10 10 RI 0 PH CH AR AR MA D CY W LL C TH 00 03 06 3 30 30 ME 43 AR Ac ER 90 -0 -0 .0 D 52 NO ti A 40 9- 7- 00 CA 67 LD ve TA 53 20 20 RE 6 BL 96 10 10 RI ET 1 PH CH AR AR MA D CY W LL C 00 02 05 3 30 30 ME 43 AR Ac 06 -2 -1 .0 D 05 NO ti 76 0- 4- 00 CA 72 LD ve 07 20 20 RE 0 03 10 10 RI 0 PH CH AR AR MA D CY W LL C TH 00 03 05 3 30 30 ME 43 AR Ac ER 90 -0 -0 .0 D 52 NO ti A 40 9- 8- 00 CA 67 LD ve TA 53 20 20 RE 6 BL 96 10 10 RI ET 1 PH CH AR AR MA D CY W LL C 00 02 04 3 20 3 ME 42 AR Ac 18 -0 -1 .0 D 71 NO ti 28 1- 9- 00 CA 82 LD ve 44 20 20 RE 3 78 10 10 RI 9 PH CH AR AR MA D CY W LL C 00 02 04 3 30 30 ME 43 AR Ac 06 -2 -1 .0 D 05 NO ti 76 0- 4- 00 CA 72 LD ve 07 20 20 RE 0 03 10 10 RI 0 PH CH AR AR MA D CY W LL C TH 00 03 04 3 30 30 ME 43 AR Ac ER 90 -0 -0 .0 D 52 NO ti A 40 9- 8- 00 CA 67 LD ve TA 53 20 20 RE 6 BL 96 10 10 RI ET 1 PH CH AR AR MA D CY W LL C 00 02 03 3 20 3 ME 42 AR Ac 18 -0 -3 .0 D 71 NO ti 28 1- 0- 00 CA 82 LD ve 44 20 20 RE 3 78 10 10 RI 9 PH CH AR AR MA D CY W LL C 00 02 03 3 30 30 ME 43 AR Ac 06 -2 -1 .0 D 05 NO ti 76 0- 8- 00 CA 72 LD ve 07 20 20 RE 0 03 10 10 RI 0 PH CH AR AR MA D CY W LL C TH 00 03 03 3 30 30 ME 43 AR Ac ER 90 -0 -0 .0 D 52 NO ti A 40 9- 9- 00 CA 67 LD ve TA 53 20 20 RE 6 BL 96 10 10 RI ET 1 PH CH AR AR MA D CY W LL C TH 00 11 02 03 30 30 ME 40 AR Ac ER 90 -0 -2 .0 D 37 NO ti A 40 9- 6- 00 CA 41 LD ve TA 53 20 20 RE 2 BL 96 09 10 RI ET 1 PH CH AR AR MA D CY W LL C ME 00 01 02 00 15 5 ME 42 AR Ac CL 53 -2 -1 .0 D 52 NO ti IZ 63 5- 1- 00 CA 45 LD ve IN 98 20 20 RE 9 E 50 10 10 RI 12 1 PH CH .5 AR AR MA D MG CY W TA LL BL C ET 00 02 02 00 20 3 ME 42 AR Ac 18 -0 -1 .0 D 71 NO ti 28 1- 1- 00 CA 82 LD ve 44 20 20 RE 3 78 10 10 RI 9 PH CH AR AR MA D CY W LL C 00 10 01 03 30 30 ME 39 AR Ac 06 -2 -2 .0 D 90 NO ti 76 3- 8- 00 CA 33 LD ve 07 20 20 RE 4 03 09 10 RI 0 PH CH AR AR MA D CY W LL C TR 45 07 01 01 85 5 ME 37 AR Ac OL 80 -2 -2 .0 D 68 NO ti AM 20 1- 8- 00 CA 89 LD ve IN 35 20 20 RE 0 E 65 09 10 RI SA 3 PH CH LI AR AR CY MA D LA CY W TE LL 10 C % CR EA M TH 00 11 01 02 30 30 ME 40 AR Ac ER 90 -0 -1 .0 D 37 NO ti A 40 9- 4- 00 CA 41 LD ve TA 53 20 20 RE 2 BL 96 09 10 RI ET 1 PH CH AR AR MA D CY W LL C 00 10 01 03 20 3 ME 39 AR Ac 18 -0 -1 .0 D 67 NO ti 28 7- 4- 00 CA 31 LD ve 44 20 20 RE 4 78 09 10 RI 9 PH CH AR AR MA D CY W LL C 00 10 12 02 30 30 ME 39 AR Ac 06 -2 -3 .0 D 90 NO ti 76 3- 1- 00 CA 33 LD ve 07 20 20 RE 4 03 09 09 RI 0 PH CH AR AR MA D CY W LL C 00 10 12 02 20 3 ME 39 AR Ac 18 -0 -1 .0 D 67 NO ti 28 7- 7- 00 CA 31 LD ve 44 20 20 RE 4 78 09 09 RI 9 PH CH AR AR MA D CY W LL C 60 05 12 01 12 7 ME 36 AR Ac 25 -2 -1 0. D 31 NO ti 80 5- 7- 00 CA 09 LD ve 23 20 20 0 RE 6 91 09 09 RI 6 PH CH AR AR MA D CY W LL C TH 00 11 12 01 30 30 ME 40 AR Ac ER 90 -0 -1 .0 D 37 NO ti A 40 9- 7- 00 CA 41 LD ve TA 53 20 20 RE 2 BL 96 09 09 RI ET 1 PH CH AR AR MA D CY W LL C 00 10 12 01 30 30 ME 39 AR Ac 06 -2 -0 .0 D 90 NO ti 76 3- 3- 00 CA 33 LD ve 07 20 20 RE 4 03 09 09 RI 0 PH CH AR AR MA D CY W LL C TH 00 11 11 00 30 30 ME 40 AR Ac ER 90 -0 -1 .0 D 37 NO ti A 40 9- 9- 00 CA 41 LD ve TA 53 20 20 RE 2 BL 96 09 09 RI ET 1 PH CH AR AR MA D CY W LL C 00 10 11 00 30 30 ME 39 AR Ac 06 -2 -0 .0 D 90 NO ti 76 3- 5- 00 CA 33 LD ve 07 20 20 RE 4 03 09 09 RI 0 PH CH AR AR MA D CY W LL C 00 10 11 01 20 3 ME 39 AR Ac 18 -0 -0 .0 D 67 NO ti 28 7- 5- 00 CA 31 LD ve 44 20 20 RE 4 78 09 09 RI 9 PH CH AR AR MA D CY W LL C TH 00 07 10 03 30 30 ME 37 AR Ac ER 90 -1 -2 .0 D 25 NO ti A 40 2- 2- 00 CA 02 LD ve TA 53 20 20 RE 0 BL 96 09 09 RI ET 1 PH CH AR AR MA D CY W LL C 00 10 10 00 20 3 ME 39 AR Ac 18 -0 -2 .0 D 67 NO ti 28 7- 2- 00 CA 31 LD ve 44 20 20 RE 4 78 09 09 RI 9 PH CH AR AR MA D CY W LL C 00 06 10 03 30 30 ME 36 AR Ac 06 -2 -0 .0 D 85 NO ti 76 5- 8- 00 CA 72 LD ve 07 20 20 RE 9 03 09 09 RI 0 PH CH AR AR MA D CY W LL C 00 07 09 02 20 3 ME 37 AR Ac 18 -2 -2 .0 D 77 NO ti 28 4- 4- 00 CA 91 LD ve 44 20 20 RE 0 78 09 09 RI 9 PH CH AR AR MA D CY W LL C 00 07 09 03 20 3 ME 37 AR Ac 18 -2 -2 .0 D 77 NO ti 28 4- 4- 00 CA 91 LD ve 44 20 20 RE 0 78 09 09 RI 9 PH CH AR AR MA D CY W LL C TH 00 07 09 02 30 30 ME 37 AR Ac ER 90 -1 -2 .0 D 25 NO ti A 40 2- 4- 00 CA 02 LD ve TA 53 20 20 RE 0 BL 96 09 09 RI ET 1 PH CH AR AR MA D CY W LL C 00 06 09 02 30 30 ME 36 AR Ac 06 -2 -1 .0 D 85 NO ti 76 5- 0- 00 CA 72 LD ve 07 20 20 RE 9 03 09 09 RI 0 PH CH AR AR MA D CY W LL C TH 00 07 08 01 30 30 ME 37 AR Ac ER 90 -1 -2 .0 D 25 NO ti A 40 2- 7- 00 CA 02 LD ve TA 53 20 20 RE 0 BL 96 09 09 RI ET 1 PH CH AR AR MA D CY W LL C 00 07 08 01 20 3 ME 37 AR Ac 18 -2 -2 .0 D 77 NO ti 28 4- 7- 00 CA 91 LD ve 44 20 20 RE 0 78 09 09 RI 9 PH CH AR AR MA D CY W LL C 00 06 08 01 30 30 ME 36 AR Ac 06 -2 -1 .0 D 85 NO ti 76 5- 3- 00 CA 72 LD ve 07 20 20 RE 9 03 09 09 RI 0 PH CH AR AR MA D CY W LL C TH 00 07 07 00 30 30 ME 37 AR Ac ER 90 -1 -3 .0 D 25 NO ti A 40 2- 0- 00 CA 02 LD ve TA 53 20 20 RE 0 BL 96 09 09 RI ET 1 PH CH AR AR MA D CY W LL C 00 07 07 00 20 3 ME 37 AR Ac 18 -2 -3 .0 D 77 NO ti 28 4- 0- 00 CA 91 LD ve 44 20 20 RE 0 78 09 09 RI 9 PH CH AR AR MA D CY W LL C TR 45 07 07 00 85 5 ME 37 AR Ac OL 80 -2 -3 .0 D 68 NO ti AM 20 1- 0- 00 CA 89 LD ve IN 35 20 20 RE 0 E 65 09 09 RI SA 3 PH CH LI AR AR CY MA D LA CY W TE LL 10 C % CR EA M 00 06 07 00 30 30 ME 36 AR Ac 06 -2 -0 .0 D 85 NO ti 76 5- 2- 00 CA 72 LD ve 07 20 20 RE 9 03 09 09 RI 0 PH CH AR AR MA D CY W LL C AL 00 06 07 00 1. 1 ME 36 AR Ac ND 78 -1 -0 00 D 71 NO ti AZ 11 0- 2- 0 CA 93 LD ve OL 07 20 20 RE 5 AM 71 09 09 RI 0 PH CH 0. AR AR 5 MA D MG CY W TA LL BL C ET 00 05 07 03 20 3 ME 35 AR Ac 18 -0 -0 .0 D 82 NO ti 28 4- 2- 00 CA 17 LD ve 44 20 20 RE 9 78 09 09 RI 9 PH CH AR AR MA D CY W LL C TH 00 03 06 03 30 30 ME 34 AR Ac ER 90 -1 -1 .0 D 65 NO ti A 40 7- 8- 00 CA 20 LD ve TA 53 20 20 RE 2 BL 96 09 09 RI ET 1 PH CH AR AR MA D CY W LL C 00 05 06 02 20 3 ME 35 AR Ac 18 -0 -1 .0 D 82 NO ti 28 4- 8- 00 CA 17 LD ve 44 20 20 RE 9 78 09 09 RI 9 PH CH AR AR MA D CY W LL C 60 05 06 00 12 7 ME 36 AR Ac 25 -2 -0 0. D 31 NO ti 80 5- 4- 00 CA 09 LD ve 23 20 20 0 RE 6 91 09 09 RI 6 PH CH AR AR MA D CY W LL C 00 03 06 03 30 30 ME 34 AR Ac 06 -0 -0 .0 D 11 NO ti 76 2- 4- 00 CA 59 LD ve 07 20 20 RE 3 03 09 09 RI 0 PH CH AR AR MA D CY W LL C 00 05 06 01 20 3 ME 35 AR Ac 18 -0 -0 .0 D 82 NO ti 28 4- 4- 00 CA 17 LD ve 44 20 20 RE 9 78 09 09 RI 9 PH CH AR AR MA D CY W LL C 00 05 05 00 20 3 ME 35 AR Ac 18 -0 -2 .0 D 82 NO ti 28 4- 1- 00 CA 17 LD ve 44 20 20 RE 9 78 09 09 RI 9 PH CH AR AR MA D CY W LL C TH 00 03 05 02 30 30 ME 34 AR Ac ER 90 -1 -2 .0 D 65 NO ti A 40 7- 1- 00 CA 20 LD ve TA 53 20 20 RE 2 BL 96 09 09 RI ET 1 PH CH AR AR MA D CY W LL C 00 03 05 03 20 3 ME 34 AR Ac 18 -1 -0 .0 D 70 NO ti 28 8- 7- 00 CA 64 LD ve 44 20 20 RE 0 78 09 09 RI 9 PH CH AR AR MA D CY W LL C 00 03 05 02 30 30 ME 34 AR Ac 06 -0 -0 .0 D 11 NO ti 76 2- 7- 00 CA 59 LD ve 07 20 20 RE 3 03 09 09 RI 0 PH CH AR AR MA D CY W LL C 00 03 04 01 20 3 ME 34 AR Ac 18 -1 -2 .0 D 70 NO ti 28 8- 3- 00 CA 64 LD ve 44 20 20 RE 0 78 09 09 RI 9 PH CH AR AR MA D CY W LL C TH 00 03 04 01 30 30 ME 34 AR Ac ER 90 -1 -2 .0 D 65 NO ti A 40 7- 3- 00 CA 20 LD ve TA 53 20 20 RE 2 BL 96 09 09 RI ET 1 PH CH AR AR MA D CY W LL C 00 03 04 02 20 3 ME 34 AR Ac 18 -1 -2 .0 D 70 NO ti 28 8- 3- 00 CA 64 LD ve 44 20 20 RE 0 78 09 09 RI 9 PH CH AR AR MA D CY W LL C 00 03 04 01 30 30 ME 34 AR Ac 06 -0 -0 .0 D 11 NO ti 76 2- 9- 00 CA 59 LD ve 07 20 20 RE 3 03 09 09 RI 0 PH CH AR AR MA D CY W LL C 00 03 03 00 20 3 ME 34 AR Ac 18 -1 -2 .0 D 70 NO ti 28 8- 6- 00 CA 64 LD ve 44 20 20 RE 0 78 09 09 RI 9 PH CH AR AR MA D CY W LL C TH 00 03 03 00 30 30 ME 34 AR Ac ER 90 -1 -2 .0 D 65 NO ti A 40 7- 6- 00 CA 20 LD ve TA 53 20 20 RE 2 BL 96 09 09 RI ET 1 PH CH AR AR MA D CY W LL C 00 03 03 00 30 30 ME 34 AR Ac 06 -0 -1 .0 D 11 NO ti 76 2- 2- 00 CA 59 LD ve 07 20 20 RE 3 03 09 09 RI 0 PH CH AR AR MA D CY W LL C 00 12 02 03 20 3 ME 32 AR Ac 18 -0 -2 .0 D 20 NO ti 28 8- 6- 00 CA 12 LD ve 44 20 20 RE 4 78 08 09 RI 9 PH CH AR AR MA D CY W LL C 00 11 02 03 30 30 ME 30 AR Ac 06 -0 -1 .0 D 95 NO ti 76 2- 2- 00 CA 79 LD ve 07 20 20 RE 3 03 08 09 RI 0 PH CH AR AR MA D CY W LL C 00 11 01 02 30 30 ME 30 AR Ac 06 -0 -1 .0 D 95 NO ti 76 2- 5- 00 CA 79 LD ve 07 20 20 RE 3 03 08 09 RI 0 PH CH AR AR MA D CY W LL C 00 12 01 02 20 3 ME 32 AR Ac 18 -0 -1 .0 D 20 NO ti 28 8- 5- 00 CA 12 LD ve 44 20 20 RE 4 78 08 09 RI 9 PH CH AR AR MA D CY W LL C 00 12 01 01 20 3 ME 32 AR Ac 18 -0 -0 .0 D 20 NO ti 28 8- 1- 00 CA 12 LD ve 44 20 20 RE 4 78 08 09 RI 9 PH CH AR AR MA D CY W LL C 00 11 12 01 30 30 ME 30 AR Ac 06 -0 -1 .0 D 95 NO ti 76 2- 8- 00 CA 79 LD ve 07 20 20 RE 3 03 08 08 RI 0 PH CH AR AR MA D CY W LL C 00 12 12 00 20 3 ME 32 AR Ac 18 -0 -1 .0 D 20 NO ti 28 8- 8- 00 CA 12 LD ve 44 20 20 RE 4 78 08 08 RI 9 PH CH AR AR MA D CY W LL C 00 10 12 03 20 3 ME 31 AR Ac 18 -2 -0 .0 D 10 NO ti 28 2- 4- 00 CA 35 LD ve 44 20 20 RE 2 78 08 08 RI 9 PH CH AR AR MA D CY W LL C 00 10 11 02 20 3 ME 31 AR Ac 18 -2 -2 .0 D 10 NO ti 28 2- 0- 00 CA 35 LD ve 44 20 20 RE 2 78 08 08 RI 9 PH CH AR AR MA D CY W LL C 00 11 11 00 30 30 ME 30 AR Ac 06 -0 -2 .0 D 95 NO ti 76 2- 0- 00 CA 79 LD ve 07 20 20 RE 3 03 08 08 RI 0 PH CH AR AR MA D CY W LL C 00 10 11 00 20 3 ME 31 AR Ac 18 -2 -0 .0 D 10 NO ti 28 2- 7- 00 CA 35 LD ve 44 20 20 RE 2 78 08 08 RI 9 PH CH AR AR MA D CY W LL C 00 10 11 01 20 3 ME 31 AR Ac 18 -2 -0 .0 D 10 NO ti 28 2- 7- 00 CA 35 LD ve 44 20 20 RE 2 78 08 08 RI 9 PH CH AR AR MA D CY W LL C 00 08 10 03 20 3 ME 29 AR Ac 18 -1 -2 .0 D 50 NO ti 28 1- 3- 00 CA 16 LD ve 44 20 20 RE 5 78 08 08 RI 9 PH CH AR AR MA D CY W LL C 00 07 10 03 30 30 ME 28 AR Ac 06 -0 -0 .0 D 71 NO ti 76 9- 9- 00 CA 40 LD ve 07 20 20 RE 9 03 08 08 RI 0 PH CH AR AR MA D CY W LL C 00 08 09 02 20 3 ME 29 AR Ac 18 -1 -2 .0 D 50 NO ti 28 1- 6- 00 CA 16 LD ve 44 20 20 RE 5 78 08 08 RI 9 PH CH AR AR MA D CY W LL C 00 07 09 02 30 30 ME 28 AR Ac 06 -0 -1 .0 D 71 NO ti 76 9- 1- 00 CA 40 LD ve 07 20 20 RE 9 03 08 08 RI 0 PH CH AR AR MA D CY W LL C 00 08 09 01 20 3 ME 29 AR Ac 18 -1 -1 .0 D 50 NO ti 28 1- 1- 00 CA 16 LD ve 44 20 20 RE 5 78 08 08 RI 9 PH CH AR AR MA D CY W LL C 00 08 08 00 20 3 ME 29 No Ac 18 -1 -2 .0 D 50 t ti 28 1- 8- 00 CA 16 Av ve 44 20 20 RE 5 ai 78 08 08 la 9 PH bl AR e MA CY LL C 00 05 08 03 20 3 ME 27 No Ac 18 -1 -1 .0 D 63 t ti 28 5- 4- 00 CA 90 Av ve 44 20 20 RE 8 ai 78 08 08 la 9 PH bl AR e MA CY LL C 00 07 08 01 30 30 ME 28 No Ac 06 -0 -1 .0 D 71 t ti 76 9- 4- 00 CA 40 Av ve 07 20 20 RE 9 ai 03 08 08 la 0 PH bl AR e MA CY LL C TR 45 07 08 00 85 5 ME 28 No Ac OL 80 -1 -0 .0 D 99 t ti AM 20 6- 1- 00 CA 05 Av ve IN 35 20 20 RE 8 ai E 65 08 08 la SA 3 PH bl LI AR e CY MA LA CY TE LL 10 C % CR EA M 00 07 07 00 30 30 ME 28 No Ac 06 -0 -1 .0 D 71 t ti 76 9- 7- 00 CA 40 Av ve 07 20 20 RE 9 ai 03 08 08 la 0 PH bl AR e MA CY LL C 00 05 07 02 20 3 ME 27 No Ac 18 -1 -1 .0 D 63 t ti 28 5- 7- 00 CA 90 Av ve 44 20 20 RE 8 ai 78 08 08 la 9 PH bl AR e MA CY LL C 00 05 07 01 20 3 ME 27 No Ac 18 -1 -0 .0 D 63 t ti 28 5- 3- 00 CA 90 Av ve 44 20 20 RE 8 ai 78 08 08 la 9 PH bl AR e MA CY LL C 00 03 07 03 30 30 ME 26 No Ac 06 -1 -0 .0 D 10 t ti 76 1- 3- 00 CA 43 Av ve 07 20 20 RE 6 ai 03 08 08 la 0 PH bl AR e MA CY LL C 00 05 05 00 20 3 ME 27 No Ac 18 -1 -2 .0 D 63 t ti 28 5- 2- 00 CA 90 Av ve 44 20 20 RE 8 ai 78 08 08 la 9 PH bl AR e MA CY LL C 00 03 05 02 30 30 ME 26 No Ac 06 -1 -2 .0 D 10 t ti 76 1- 2- 00 CA 43 Av ve 07 20 20 RE 6 ai 03 08 08 la 0 PH bl AR e MA CY LL C 00 12 05 03 20 3 ME 23 No Ac 18 -0 -0 .0 D 98 t ti 28 4- 8- 00 CA 06 Av ve 44 20 20 RE 6 ai 78 07 08 la 9 PH bl AR e MA CY LL C 00 03 04 01 30 30 ME 26 No Ac 06 -1 -2 .0 D 10 t ti 76 1- 4- 00 CA 43 Av ve 07 20 20 RE 6 ai 03 08 08 la 0 PH bl AR e MA CY LL C TR 45 11 04 04 85 5 ME 23 No Ac OL 80 -1 -2 .0 D 49 t ti AM 20 2- 4- 00 CA 78 Av ve IN 35 20 20 RE 5 ai E 65 07 08 la SA 3 PH bl LI AR e CY MA LA CY TE LL 10 C % CR EA M 00 12 04 02 20 3 ME 23 No Ac 18 -0 -1 .0 D 98 t ti 28 4- 7- 00 CA 06 Av ve 44 20 20 RE 6 ai 78 07 08 la 9 PH bl AR e MA CY LL C 00 03 04 00 30 30 ME 26 No Ac 06 -1 -1 .0 D 10 t ti 76 1- 7- 00 CA 43 Av ve 07 20 20 RE 6 ai 03 08 08 la 0 PH bl AR e MA CY LL C 00 12 03 01 20 3 ME 23 No Ac 18 -0 -2 .0 D 98 t ti 28 4- 6- 00 CA 06 Av ve 44 20 20 RE 6 ai 78 07 08 la 9 PH bl AR e MA CY LL C TR 45 11 03 03 85 5 ME 23 No Ac OL 80 -1 -2 .0 D 49 t ti AM 20 2- 6- 00 CA 78 Av ve IN 35 20 20 RE 5 ai E 65 07 08 la SA 3 PH bl LI AR e CY MA LA CY TE LL 10 C % CR EA M 60 02 03 00 12 5 ME 25 No Ac 25 -0 -2 0. D 44 t ti 80 6- 6- 00 CA 21 Av ve 23 20 20 0 RE 1 ai 91 08 08 la 6 PH bl AR e MA CY LL C 24 12 03 01 30 30 ME 24 No Ac 38 -1 -2 .0 D 04 t ti 50 2- 4- 00 CA 83 Av ve 47 20 20 RE 3 ai 16 07 08 la 5 PH bl AR e MA CY LL C Immunization Name Date Rout CVX Reac Dose Comm Prov Is Faci e tion ent ider Refu lity Give sed n IIV3 11-0 141 ARNO No ARNO 9-20 LD, LD, VACC 09 RICH RICH INE RENEA RENEA SPLI W W T VIRU S 0.5 ML DOSA GE IM USE IIV3 10-3 141 ARNO No ARNO 0-20 LD, LD, VACC 08 RICH RICH INE RENEA RENEA SPLI W W T VIRU S 0.5 ML DOSA GE IM USE Procedures Procedure DOS Code Location Performer Comment COLLECTIO 48317 COMBINED COMBINED N VENOUS 7 PHYSICIAN PHYSICIAN BLOOD S LA S LA VENIPUNCT URE TRAVEL [id number] MED 7 PHYSICIAN PHYSICIAN NEC LAB S LA S LA SPEC; PRORATD TRIP CHRG BASIC 50195 COMBINED COMBINED METABOLIC 7 PHYSICIAN PHYSICIAN PANEL [place] [id number] [facility]OPONIN [facility] [place] [address] [facility] P[facility]RO[facility] TROPONIN 7 [facility] QUANTITAT INC INC [place] BLOOD 33440 YOVANY PEDROZA COUNT 7 [facility] COMPLETE INC INC AUTO&AUTO DIFRNTL WBC RADIOLOGI 61101 [facility] C EXAM 7 MEDICAL MEDICAL CHEST 2 IMAGING IMAGING VIEWS ASS ASS FRONTAL&L ATERAL ECG [address] [facility] ROUTINE 7 PHYSICIAN ECG S, PLLC W/LEAST 12 LDS I&R ONLY GROUND A0425 [facility] 7 AMBULANCE AMBULANCE PER SERVICE SERVICE STATUTE MILE COMPREHEN 40420 YOVANY LAST SIVE 7 [facility] [place] [address] YOVANY PEDROZA AMYLASE 7 [facility] INC INC CREATINE 87108 YOVANY MARIANO KINASE MB 7 [facility] FRACTION INC ONLY CREATINE 05420 YOVANY KIMBLES KINASE 7 [facility] [place] [address] YOVANY PEDROZA LIPASE 7 [facility] INC INC ECG 77537 YOVANY PEDROZA ROUTINE 7 [facility] ECG INC INC W/LEAST 12 LDS TRCG ONLY W/O I&R AMB A0427 [facility] SERVICE 7 AMBULANCE AMBULANCE ALS SERVICE SERVICE EMERGENCY TRANSPORT LEVEL 1 RADIOLOGI [address] [facility] C 7 PHYSICIAN EXAMINATI S, PLLC ON CHEST SINGLE VIEW FRONTAL MYOCARDIA 96285 [facility] SRIVASTAV L SPECT 7 PHYSICIAN A MULTIPLE S GROUP STUDIES CV STRS 67218 [facility] COOK TST 7 PHYSICIAN XERS&/OR S GROUP RX CONT ECG W/O I&R AMB A0427 [facility] SERVICE 7 AMBULANCE AMBULANCE ALS SERVICE SERVICE EMERGENCY TRANSPORT LEVEL 1 GROUND A0425 [facility] 7 AMBULANCE AMBULANCE PER SERVICE SERVICE STATUTE MILE ECG [address] [facility] ROUTINE 7 PHYSICIAN ECG S, PLLC W/LEAST 12 LDS I&R ONLY ECG 66159 YOVANY PEDROZA ROUTINE 7 [facility] ECG INC INC W/LEAST 12 LDS TRCG ONLY W/O I&R AMB A0427 [facility] SERVICE 7 AMBULANCE AMBULANCE ALS SERVICE SERVICE EMERGENCY TRANSPORT LEVEL 1 RADIOLOGI 41040 [facility] 7 MEDICAL EXAMINATI IMAGING ON CHEST ASS SINGLE VIEW FRONTAL CT THORAX 10583 [facility] 7 MEDICAL W/CONTRAS IMAGING T ASS MATERIAL ECG 54040 YOVANY SWATHI ROUTINE 7 [facility] W/LEAST P 12 LDS I&R ONLY GROUND A0425 [facility] 7 AMBULANCE AMBULANCE PER SERVICE SERVICE STATUTE MILE BASIC 20438 COM[facility]ED METABOLIC 7 PHYSICIAN PHYSICIAN PANEL S LA S LA CALCIUM TOTAL TRAVEL [address] MED 7 PHYSICIAN PHYSICIAN NEC LAB S LA S LA SPEC; PRORATD TRIP CHRG COLLECTIO 28427 COMBINED COMBINED N VENOUS 7 PHYSICIAN PHYSICIAN BLOOD S LA S LA VENIPUNCT URE TRAVEL [address] MED 6 PHYSICIAN PHYSICIAN NEC LAB S LA S LA SPEC; PRORATD TRIP CHRG COLLECTIO 62394 COMBINED COMBINED N VENOUS 6 PHYSICIAN PHYSICIAN BLOOD S LA S LA VENIPUNCT URE COMPREHEN 89427 COMBINED COMBINED SIVE 6 PHYSICIAN PHYSICIAN METABOLIC S LA S LA PANEL BLOOD 28169 COMBINED COMBINED COUNT 6 PHYSICIAN PHYSICIAN COMPLETE S LA S LA AUTO&AUTO DIFRNTL WBC BLOOD 71069 COMBINED COMBINED COUNT 6 PHYSICIAN PHYSICIAN COMPLETE S LA S LA AUTO&AUTO DIFRNTL WBC COMPREHEN 01200 COMBINED COMBINED SIVE 6 PHYSICIAN PHYSICIAN METABOLIC S LA S LA PANEL TRAVEL [address] MED 6 PHYSICIAN PHYSICIAN NEC LAB S LA S LA SPEC; PRORATD TRIP CHRG COLLECTIO 01202 COMBINED COMBINED N VENOUS 6 PHYSICIAN PHYSICIAN BLOOD S LA S LA VENIPUNCT URE ECG 20057 YOVANY NORRIS JR ROUTINE 6 [facility] W/LEAST P 12 LDS I&R ONLY GROUND A0425 [facility] 6 AMBULANCE AMBULANCE PER SERVICE SERVICE STATUTE MILE CT THORAX 32606 [place] [facility] ALL 6 MEDICAL W/CONTRAS IMAGING T ASS MATERIAL RADIOLOGI 27560 [facility] C 6 MEDICAL MEDICAL EXAMINATI IMAGING IMAGING ON CHEST ASS ASS SINGLE VIEW FRONTAL AMB A0427 [facility] SERVICE 6 AMBULANCE AMBULANCE ALS SERVICE SERVICE EMERGENCY TRANSPORT LEVEL 1 SET-UP Q0092 [facility] PORTABLE 6 MOBILE MOBILE X-RAY DIAGNOSTI DIAGNOSTI EQUIPMENT C SE C SE RADEX 30078 [facility] FOOT 6 MOBILE MOBILE COMPLETE DIAGNOSTI DIAGNOSTI MINIMUM 3 C SE C SE VIEWS TRANS R0070 [facility] PRTBL 6 MOBILE MOBILE X-RAY DIAGNOSTI DIAGNOSTI EQP&PERS C SE C SE GINETTE/NRS GINETTE-TRIP 1 PT CULTURE 72947 YOVANY PEDROZA BACTERIAL 6 [facility] INC INC QUANTTATI VE COLONY COUNT URINE CULTURE 29786 YOVANY PEDROZA BCT 6 [facility] ISOL&PRSM INC INC PTV ID ISOLATE EA URINE SUSCEPTIB 45734 YOVANY PEDROZA LTY STDY 6 [facility] ANTIMICRB INC INC IAL MICRO/[place] [address] YOVANY PEDROZA INFUSION 6 [facility] THER INC INC PROPH ADDL SEQUENTIA L TO 1 [place] [address] YOVANY PEDROZA INFUSION 6 [facility] THERAPY/P INC INC ROPHYLAXI S /DX 1ST TO 1 HR THERAPEUT 92318 YOVANY PEDROZA IC 6 [facility] INJECTION INC INC IV PUSH EACH NEW DRUG URNLS DIP 36243 YOVANY PEDROZA 6 [facility] STICK/TAB INC INC LET REAGENT AUTO MICROSCOP Y RADIOLOGI 38721 YOVANY Guzmán 6 [facility] EXAMINATI INC [place] [address] [place] MURILLO ALL ABDOMEN & 6 MEDICAL PELVIS IMAGING W/O ASS CONTRAST MATERIAL ECG 26987 YOVANY PEDROZA ROUTINE 6 [facility] ECG INC INC W/LEAST 12 LDS TRCG ONLY W/O I&R COMPREHEN 88806 YOVANY PEDROZA SIVE 6 [facility] METABOLIC INC INC PANEL BLOOD 70165 YOVANY PEDROZA COUNT 6 [facility] COMPLETE INC INC AUTO&[place] [address] YOVANY PEDROZA TROPONIN 6 [facility] QUANTITAT INC INC SALONI ECG 14202 YOVANY NORRIS JR ROUTINE 6 [facility] W/LEAST P 12 LDS I&R ONLY AMBULANCE A0429 [facility] SERVICE 6 AMBULANCE AMBULANCE BLS SERVICE SERVICE EMERGENCY TRANSPORT PATIENT G8784 [facility] NOT 6 PHYSICIAN BRITTANEY IZAGUIRRE S, PLLC E.G. PT REFUSES URGENT/EM SIT 12-LEAD 3120F [facility] ECG 6 PHYSICIAN BRITTANEY PERFORMED S, [place] [address] YOVANY PEDROZA LIPASE 6 [facility] INC INC GROUND A0425 [facility] MILEAGE 6 AMBULANCE AMBULANCE PER SERVICE SERVICE STATUTE MILE BASIC 30193 COMBINED COMBINED METABOLIC 6 PHYSICIAN PHYSICIAN PANEL S LA S LA CALCIUM TOTAL TRAVEL [address] MED 6 PHYSICIAN PHYSICIAN NEC LAB S LA S LA SPEC; PRORATD TRIP CHRG COLLECTIO 35143 COMBINED COMBINED N VENOUS 6 PHYSICIAN PHYSICIAN BLOOD S LA S LA VENIPUNCT URE DEBRIDEME 15383 NOEMI FRANKLIN NT NAIL 6 JAM JAM ANY METHOD 6/> PARING/CU 71129 NOEMI FRANKLIN TTING 6 JAM JAM BENIGN HYPERKERA TOTIC LESION 2-4 BLOOD 98826 YOVANY PEDROZA OCCULT 6 [facility] PEROXIDAS INC INC E ACTV QUAL FECES 1-3 SPEC AMB A0427 [facility] SERVICE 6 AMBULANCE AMBULANCE ALS SERVICE SERVICE EMERGENCY TRANSPORT LEVEL 1 ECG 62723 YOVANY PEDROZA ROUTINE 6 [facility] ECG INC INC W/LEAST 12 LDS TRCG ONLY W/O I&R COMPREHEN 78410 YOVANY PEDROZA SIVE 6 [facility] [address] YOVANY PEDROZA LIPASE 6 [facility] [place] [address] YOVANY PEDROZA AMYLASE 6 [facility] INC INC CREATINE 35854 YOVANY YOVANY KINASE MB 6 [facility] FRACTION INC INC ONLY CREATINE 44931 YOVANY PEDROZA KINASE 6 [facility] TOTAL INC INC GROUND A0425 [facility] [place] MILEAGE 6 AMBULANCE AMBULANCE PER SERVICE SERVICE STATUTE MILE RADIOLOGI 80747 [place] [facility] C EXAM 6 MEDICAL ABDIRAHMAN CHEST 2 IMAGING VIEWS ASS FRONTAL&L ATERAL ECG 95169 YOVANY ECHEVARRIA ROUTINE [address] [facility] W/LEAST P 12 LDS I&[place] [address] YOVANY PEDROZA TROPONIN 6 [facility] QUANTITAT INC INC SALONI BLOOD 81589 YOVANY YOVANY COUNT 6 [facility] HOS[facility] COMPLETE INC INC AUTO&AUTO DIFRNTL WBC BLOOD 15856 COMBINED COMBINED COUNT 6 PHYSICIAN PHYSICIAN COMPLETE S LA S LA AUTO&AUTO DIFRNTL WBC BASIC 00599 COMBINED COMBINED METABOLIC 6 PHYSICIAN PHYSICIAN PANEL S LA S LA CALCIUM TOTAL TRAVEL [address] MED 6 PHYSICIAN PHYSICIAN NEC LAB S LA S LA SPEC; PRORATD TRIP CHRG COLLECTIO 65640 COMBINED COMBINED N VENOUS 6 PHYSICIAN PHYSICIAN BLOOD S LA S LA VENIPUNCT URE DEBRIDEME 97784 BRAUDIS BRAUDIS NT NAIL 6 JAM JAM ANY METHOD 1-5 PARING/CU 04232 BRAUDIS BRAUDIS TTING 6 JAM JAM BENIGN HYPERKERA TOTIC LESION 2-4 TRIMMING 73659 BRAUDIS BRAUDIS NONDYSTRO 6 JAM JAM PHIC NAILS ANY NUMBER PARING/CU 39956 BRAUDIS BRAUDIS TTING 5 JAM JAM BENIGN HYPERKERA TOTIC LESION 2-4 DEBRIDEME 76824 BRAUDIS BRAUDIS NT NAIL 5 JAM JAM ANY METHOD 6/> NONEMERG A0120 [facility] FEDERATED TRNSPRT: 5 MINI-BUS TRANSPORT TRANSPORT MTN ATION SER ATION SER AREA/OTH SYS RADIOLOGI 28514 [facility] [facility] C EXAM 5 MEDICAL ERUM CHEST 2 IMAGING VIEWS ASS FRONTAL&L ATERAL RADIOLOGI 96771 [place] BRITTNEY C 5 MEDICAL ABDIRAHMAN EXAMINATI IMAGING ON FEMUR ASS 2 VIEWS RADEX HIP 08692 [facility] CORTEZ[facility]ITTNEY 5 MEDICAL ABDIRAHMAN UNILATERA IMAGING L ASS COMPLETE MINIMUM [address] PELVIS 33489 DOYLE MURILLO ALL W/O 5 MEDICAL CONTRAST IMAGING MATERIAL ASS RADIOLOGI 60908 [facility] GARCIABRITTNEY C 5 MEDICAL ABDIRAHMAN EXAMINATI IMAGING ON KNEE ASS 1/2 VIEWS PARING/CU 44486 BRAUDIS BRAUDIS TTING 5 JAM JAM BENIGN HYPERKERA TOTIC LESION 2-4 DEBRIDEME 77340 KATHERINUDIS BRAUDIS NT NAIL 5 JAM JAM ANY METHOD 1-[place] [address] DOYLE MURILLO ALL ABDOMEN & 5 MEDICAL PELVIS IMAGING W/O ASS CONTRAST MATERIAL NONEMERG A0120 FEDERATED FEDERATED TRNSPRT: 5 MINI-BUS TRANSPORT [facility]SPORT [facility] S[facility] CV STRS 47589 [facility] TST 5 PHYSICIAN XERS&/OR S GROUP RX CONT ECG W/O I&R CV STRS 71929 YOVANY NORRIS TST 5 [facility] RX CONT P ECG I&R ONLY MYOCARDIA 91837 YOVANY PEDROZA L SPECT 5 [facility] MULTIPLE INC INC STUDIES NONEMERG A0120 FEDERATED FEDERATED TRNSPRT: 5 MINI-BUS TRANSPORT TRANSPORT MTN [facility]YS RADIOLOGI 39179 [place] [facility] 5 MEDICAL ERUM EXAMINATI IMAGING ON CHEST ASS SINGLE VIEW FRONTAL RADIOLOGI 76740 YOVANY PEDROZA C 5 [facility] EXAMINATI INC INC ON CHEST SINGLE VIEW FRONTAL ECG 51752 YOVANY ECHEVARRIA ROUTINE [address] [facility] W/LEAST P 12 LDS I&R ONLY RADIOLOGI 53478 [place] [facility] C 5 MEDICAL ERUM EXAMINATI IMAGING [place] [address] [facility] [facility] ABDOMEN & 5 MEDICAL ERUM PELVIS IMAGING W/O ASS CONTRAST MATERIAL PARING/CU 41351 NOEMI FRANKLIN TTING 5 JAM JAM BENIGN HYPERKERA TOTIC LESION 2-4 RADIOLOGI 66825 [facility] EXAM 4 MEDICAL ERUM CHEST 2 IMAGING VIEWS ASS FRONTAL&L ATERAL RADIOLOGI 33593 [facility] C EXAM 4 MOBILE MOBILE CHEST 2 DIAGNOSTI DIAGNOSTI VIEWS C SE C SE FRONTAL&L ATERAL NONEMERG A0120 FEDERATED FEDERATED TRNSPRT: 4 TRANS MINI-BUS [facility]/OTH SYS ECG 79804 ALFARIS ALFARIS ROUTINE 4 MOH MOH ECG W/LEAST 12 LDS I&R ONLY RADIOLOGI 10734 [facility] 4 MEDICAL ERUM EXAMINATI IMAGING ON CHEST ASS SINGLE VIEW FRONTAL RADIOLOGI 70228 [facility] 4 MEDICAL ABDIRAHMAN EXAMINATI IMAGING ON CHEST ASS SINGLE VIEW FRONTAL NONEMERG A0120 FEDERATED FEDERATED TRNSPRT: 4 TRANS [facility] ARE[facility]/OTH SYS ECG 75415 [facility] ROUTINE 4 RADHA RADHA ECG EMERGENCY EMERGENCY W/LEAST PHYS PHYS 12 LDS I&R ONLY RADIOLOGI 86943 [facility] 4 MEDICAL ABDIRAHMAN EXAMINATI IMAGING ON CHEST ASS SINGLE VIEW FRONTAL NONEMERG A0120 FEDERATED FEDERATED TRNSPRT: 4 TRANS [facility] ARE[facility]OTH SYS CT THORAX 97619 [facility] 4 MEDICAL ABDIRAHMAN CONTRAST IMAGING MATERIAL ASS RADIOLOGI 58087 [facility] C 4 MEDICAL ABDIRAHMAN EXAMINATI IMAGING ON CHEST ASS SINGLE VIEW FRONTAL ECG 18955 [facility]WIN CHRISTOPHER ROUTINE 4 III MAXIM III MAXIM ECG W/LEAST 12 LDS I&R ONLY NONEMERG A0120 FEDERATED FEDERATED TRNSPRT: 4 MINI-BUS TRANSPORT TRANSPORT [facility] SER AREA/[place] [address] RASLAU RASLAU ANGIOGRAP 4 FLA FLA HY NECK W/CONTRAS T/NONCONT RAST NONEMERG A0120 FEDERATED FEDERATED TRNSPRT: 4 MINI-BUS TRANSPORT TRANSPORT MTN ATION SER ATION SER AREA/[place] [address] RASLAU RASLAU ANGIOGRAP 4 FLA FLA HY HEAD W/CONTRAS T/NONCONT RAST CRITICAL 03652 [facility] 4 ILL/INJUR ED PATIENT INIT 30-74 MIN PARING/CU 26083 NOEMI PANDEYUDIS TTING 4 JAM JAM BENIGN HYPERKERA TOTIC LESION 2-4 DEBRIDEME 52963 NOEMI PANDEYUDIS NT NAIL 4 JAM JAM ANY METHOD 6/> RADIOLOGI 66722 BRITTNEY BRITTNEY C EXAM 3 ABDIRAHMAN ABDIRAHMAN KNEE COMPLETE 4/MORE VIEWS ARTHROCEN 46081 PETTEY PETTEY TESIS 3 JAM JAM ASPIR&/IN J MAJOR JT/BURSA W/O US INJ J0702 PETTEY PETTEY BETAMETHA 3 JAM JAM SONE ACETATE & PHOSPHATE 3 MG NONEMERG A0120 LKLP CAC LKLP CAC TRNSPRT: 3 INC INC MINI-BUS REGION 11 REGION 11 MTN AREA/OTH SYS NONEMERG A0120 LKLP CAC LKLP CAC TRNSPRT: 3 INC INC MINI-BUS REGION 11 REGION 11 [facility] AREA/OTH SYS ECG 97566 JR NORRIS JR ROUTINE 2 DWI DWI ECG W/LEAST 12 LDS I&R ONLY ECG 46005 YOVANY PEDROZA ROUTINE 2 [facility] ECG INC INC W/LEAST 12 LDS TRCG ONLY W/O I&R RADIOLOGI 94640 BRITTNEY BRITTNEY C 2 ABDIRAHMAN ABDIRAHMAN EXAMINATI ON CHEST SINGLE VIEW FRONTAL OBSERVATI 53089 AARONKEITH SWATHI ON CARE 2 [place] [address] DOYLE CORTEZUTCHER HEAD/BRAI 2 MEDICAL ABDIRAHMAN N W/[place] [address] [facility] CORTEZ[facility]NEY MAXILLOFA 2 MEDICAL ABDIRAHMAN CIAL W/O IMAGING CONTRAST ASS MATERIAL RADIOLOGI 30602 [facility] EXAM 2 MEDICAL ABDIRAHMAN CHEST 2 IMAGING VIEWS ASS FRONTAL&L ATERAL ECG 01058 LEYDI [facility] ROUTINE 2 EMERGENCY EMERGENCY ECG SERVICES SERVICES W/LEAST 12 LDS I&R ONLY ECG 76134 JR NORRIS JR ROUTINE 2 DWI DWI ECG W/LEAST 12 LDS I&R ONLY XTRNL ECG 19986 YOVANY PEDROZA & 48 HR 2 [facility] RECORDING INC INC EXTERNAL 60867 YOVANY YOVANY ECG 2 [facility] SCANNING INC INC ANALYSIS REPORT XTRNL ECG 74266 HERNANDEZMIChey NGMIE 2 JR MAXIM JR MAXIM CONTINUOU S RHYTHM W/I&R UP TO 48 HRS ECG 84439 YOVANY PEDROZA ROUTINE 2 [facility] ECG INC INC W/LEAST 12 LDS TRCG ONLY W/O I&R RADIOLOGI 77986 YOVANY YOVANY C 2 [facility] EXAMINATI INC INC ON CHEST SINGLE VIEW FRONTAL ECG 50144 TAWNY FUCHSEY ROUTINE 2 ANIRUDH ANIRUDH ECG W/LEAST 12 LDS I&R ONLY MYOCARDIA 98992 FALLUJI FALLUJI L SPECT 2 DENISE DENISE MULTIPLE STUDIES MYOCARDIA 33235 YOVANY PEDROZA L SPECT 2 [facility] MULTIPLE INC INC STUDIES CV STRS 06315 JEROMY PINZON [facility] TST 2 XERS&/OR RX CONT ECG W/O I&R CV STRS 57021 YOVANY PEDROZA TST 2 [facility] XERS&/OR INC INC RX CONT ECG TRCG ONLY CV STRS 77251 JR NORRIS JR TST 2 DWI DWI XERS&/OR RX CONT ECG I&R ONLY NONEMERG A0120 LKLP LKLP TRNSPRT: 2 COMMUNITY COMMUNITY MINI-BUS ACTION ACTION RIN AREA/OTH SYS ECG 77148 SWATHI ECHEVARRIA ROUTINE 2 LYDIA LYDIA ECG W/LEAST 12 LDS I&R ONLY ECG 08-17-201 89680 TAWNY TAWNY ROUTINE 2 ANIRUDH ANIRUDH ECG W/LEAST 12 LDS I&R ONLY NONEMERG A0120 LKLP LKLP TRNSPRT: 2 COMMUNITY COMMUNITY MINI-BUS ACTION ACTION MTN AREA/OTH SYS ECG 14552 LISETTE KNOX ROUTINE 2 [facility] ECG W/LEAST 12 LDS I&R ONLY RADIOLOGI 13254 [facility] BRITTNEY C 2 MEDICAL ABDIRAHMAN EXAMINATI IMAGING ON CHEST ASS SINGLE VIEW FRONTAL PARING/CU 14607 BRAUDIS BRAUDIS TTING 2 JAM JAM BENIGN HYPERKERA TOTIC LESION 2-4 TRIMMING 29927 BRAUDIS BRAUDIS NONDYSTRO 2 JAM JAM PHIC NAILS ANY NUMBER TRIMMING 51824 BRAUDIS BRAUDIS NONDYSTRO 2 JAM JAM PHIC NAILS ANY NUMBER PARING/CU 51832 BRAUDIS BRAUDIS TTING 2 JAM JAM BENIGN HYPERKERA TOTIC LESION 2-4 RADIOLOGI 22229 YOVANY PEDROZA C 1 [facility] EXAMINATI INC INC ON CHEST SINGLE VIEW FRONTAL COMPREHEN 22993 YOVANY PEDROZA SIVE 1 [facility]OSP METABOLIC INC INC PANEL ECG 39041 YOVANY PEDROZA ROUTINE 1 [facility] ECG INC INC W/LEAST 12 LDS TRCG ONLY W/O I&R ECG 94947 YOVANY MCKEMIE ROUTINE [address] [facility] W/LEAST P 12 LDS I&[place] [address] YOVANY PEDROZA TROPONIN 1 [facility]OSP QUANTITAT INC INC SALONI BLOOD 29068 YOVANY PEDROZA COUNT 1 [facility] COMPLETE INC INC AUTO&AUTO DIFRNTL WBC CREATINE 31334 YOVANY PEDROZA KINASE 1 [facility] TOTAL INC INC CREATINE 52117 YOVANY PEDROZA KINASE MB 1 [facility] FRACTION INC INC ONLY URNLS DIP 44327 COMBINED COMBINED 1 PHYSICIAN PHYSICIAN STICK/TAB S LA S LA LET REAGENT AUTO MICROSCOP Y GROUND A0425 [facility] MILEAGE 1 AMBULANCE AMBULANCE PER SERVICE SERVICE STATUTE MILE BLOOD 13428 YOVANY PEDROZA COUNT 1 [facility] COMPLETE INC INC AUTO&AUTO DIFRNTL WBC COMPREHEN 09463 YOVANY YOVANY SIVE 1 [facility] METABOLIC INC INC PANEL RADIOLOGI 50823 YOVANY PEDROZA C 1 [facility] EXAMINATI INC INC ON CHEST SINGLE VIEW FRONTAL PRESSURIZ 73049 YOVANY PEDROZA ED/NONPRE 1 [facility] SSURIZED [place] [address] YOVANY PEDROZA INFUSION 1 [facility] THERAPY/P INC INC ROPHYLAXI S /DX 1ST TO 1 HR THERAPEUT 79198 YOVANY PEDROZA IC 1 [facility] INJECTION INC INC IV PUSH EACH NEW DRUG AMB A0427 [facility] SERVICE 1 AMBULANCE AMBULANCE ALS SERVICE SERVICE EMERGENCY TRANSPORT LEVEL 1 [facility]EMERGE A0100 [facility] COMM[facility]ITY TRANSPORT ACTION ATION; TAXI DEBRIDEME 14319 [facility] OPEN 1 Y Y WOUND 20 [facility] SQ CM/< DEBRIDEME 71386 [facility] OPEN 1 Y Y WOUND 20 [facility] SQ CM/< DEBRIDEME 98251 [facility] NT OPEN 1 FOOT FOOT WOUND 20 PROFESSIO PROFESSIO SQ CM/< NALS NALS NONEMERGE A0100 [facility] COMMUNITY TRANSPORT ACTION ATION; TAXI RADEX 85928 [place] [facility] FOOT 1 MEDICAL COMPLETE SERV MINIMUM 3 FOUNDATIO VIEWS URNLS DIP 31825 COMBINED COMBINED 1 PHYSICIAN PHYSICIAN STICK/TAB S LA S LA LET REAGENT AUTO MICROSCOP Y NONEMERGE A0100 [facility] CAB NCY 0 COMMUNITY TRANSPORT ACTION ATION; TAXI URNLS DIP 95965 COMBINED COMBINED 0 PHYSICIAN PHYSICIAN STICK/TAB S LA S LA LET REAGENT AUTO MICROSCOP Y CULTURE 45608 COMBINED COMBINED BACTERIAL 0 PHYSICIAN PHYSICIAN S LA S LA QUANTTATI VE COLONY COUNT URINE URNLS DIP 56723 COMBINED COMBINED 0 PHYSICIAN PHYSICIAN STICK/TAB S LA S LA LET REAGENT AUTO MICROSCOP Y AMBULANCE A0429 [facility] SERVICE 0 AMBULANCE AMBULANCE BLS SERVICE SERVICE EMERGENCY TRANSPORT GROUND A0425 [facility] MILEAGE 0 AMBULANCE AMBULANCE PER SERVICE SERVICE STATUTE MILE ORTHOPANT 15779 [facility], OGRAM 0 IMPLANT & ERIC R [facility] ECG 98759 YOVANY NORRIS, ROUTINE 0 [facility] W/LEAST PROF SERV 12 LDS I&R ONLY ECG 94242 YOVANY PEDROZA ROUTINE 0 [facility] ECG INC INC W/LEAST 12 LDS TRCG ONLY W/O I&R ECG 78818 YOVANY PEDROZA ROUTINE 0 [facility] ECG INC INC W/LEAST 12 LDS TRCG ONLY W/O I&R URNLS DIP 15417 YOVANY PEDROZA 0 [facility] STICK/TAB INC INC LET REAGENT AUTO MICROSCOP Y BLOOD 19506 YOVANY PEDROZA COUNT 0 [facility] COMPLETE INC INC AUTO&[place] [address] YOVANY PEDROZA TROPONIN 0 [facility] QUANTITAT INC INC SALONI ECG 26419 LEYDI HECTOR, ROUTINE 0 EMERGENCY ALEX S ECG SERVICES W/LEAST 12 LDS ASSOCIATE I&R ONLY S GROUND A0425 [facility] MILEAGE 0 AMBULANCE AMBULANCE PER SERVICE SERVICE STATUTE MILE BASIC 93181 YOVANY PEDROZA METABOLIC 0 [facility] PANEL INC INC CALCIUM TOTAL AMBULANCE A0429 [facility] SERVICE 0 AMBULANCE AMBULANCE BLS SERVICE SERVICE EMERGENCY TRANSPORT CREATINE 28811 YOVANY PEDROZA KINASE MB 0 [facility] FRACTION INC INC ONLY CREATINE 68169 [facility] KINASE 0 [facility] TOTAL INC INC CREATINE 55923 [facility] KINASE 0 [facility] TOTAL INC INC CREATINE 43449 Y[facility] KINASE MB 0 [facility] [place] [address] [facility] AMYLASE 0 [place] [address] [facility] LIPASE 0 [facility] INC INC AMBULANCE A0429 [facility] SERVICE 0 AMBULANCE AMBULANCE BLS SERVICE SERVICE EMERGENCY TRANSPORT GROUND A0425 [facility] MILEAGE 0 AMBULANCE AMBULANCE PER SERVICE SERVICE STATUTE MILE ECG 33810 LEYDI HECTOR, ROUTINE 0 EMERGENCY ALEX S ECG SERVICES W/LEAST 12 LDS ASSOCIATE I&[place] [id number] [facility] TROPONIN 0 [facility] QUANTITAT INC INC SALONI BLOOD 26637 [facility] COUNT 0 [facility] COMPLETE INC INC AUTO&AUTO DIFRNTL WBC URNLS DIP 95059 [facility] 0 [facility] STICK/TAB INC INC LET REAGENT AUTO MICROSCOP Y ECG 27880 [facility] ROUTINE 0 [facility] ECG INC INC W/LEAST 12 LDS TRCG ONLY W/O I&R COMPREHEN 48593 [facility] SIVE 0 [facility] METABOLIC INC INC PANEL RADEX ABD 39637 [facility] COMPL 0 [facility] AQT ABD INC INC W/S/E/D VIEWS 1 VIEW CH DEBRIDEME 56271 FOLLMER FOLLMER NT SKIN 0 ANGY ANGY PARTIAL THICKNESS 3D 44415 [facility] RENDERING 0 [facility] W/INTERP INC INC & POSTPROCE SS SUPERVISI ON AMB A0427 [facility] SERVICE 0 AMBULANCE AMBULANCE ALS SERVICE SERVICE [place] [address] [facility] HEAD/BRAI 0 [facility] N W/O INC INC CONTRAST MATERIAL GROUND A0425 [facility] MILEAGE 0 AMBULANCE AMBULANCE PER SERVICE SERVICE STATUTE MILE BLOOD 28907 COMBINED COMBINED COUNT 0 PHYSICIAN PHYSICIAN COMPLETE S LAB S LAB AUTO&AUTO DIFRNTL WBC COLLECTIO 01438 COMBINED COMBINED N VENOUS 0 PHYSICIAN PHYSICIAN BLOOD S LAB S LAB VENIPUNCT URE TRAVEL [address] MED 0 PHYSICIAN PHYSICIAN NEC LAB S LAB S LAB SPEC; PRORATD TRIP CHRG DEBRIDEME 94501 FOLLTERRI FOLLMER NT SKIN 0 ANGY ANGY PARTIAL THICKNESS THERAPEUT 38807 [facility] IC 0 [facility] INJECTION INC [place] [address] [facility] INFUSION 0 [facility] THERAPY/P INC INC ROPHYLAXI S /DX [address]ST [place] [address] [place] [address] YOV[facility] PEDROZA HEAD/BRAI 0 [facility] N W/O INC INC CONTRAST MATERIAL AMB A0427 [facility] SERVICE 0 AMBULANCE AMBULANCE ALS SERVICE SERVICE EMERGENCY TRANSPORT LEVEL 1 3D 06236 DOYLE CARTAGENA, RENDERING 0 MEDICAL GABRIELLA P W/INTERP IMAGING & ASSOCIATE [place] [address] [facility] ROUTINE 0 [facility] ECG INC INC W/LEAST 12 LDS TRCG ONLY W/O I&R BLOOD 74901 [facility] COUNT 0 [facility] COMPLETE INC INC AUTO&[place] [address] Y[facility]ED[facility] TROPONIN 0 [facility] QUANTITAT INC INC SALONI ECG 92812 YOVANY WALKERSON, ROUTINE 0 [facility] W/LEAST PROF SERV 12 LDS I&R ONLY HEPATIC 20931 [facility] FUNCTION 0 [facility] PANEL INC INC GROUND A0425 [facility] MILEAGE 0 AMBULANCE AMBULANCE PER SERVICE SERVICE STATUTE MILE CREATINE 59928 [facility] PEDRO[facility] KINASE 0 [facility] TOTAL INC INC BASIC 33196 [facility] P[facility] METABOLIC 0 [facility] PANEL INC INC CALCIUM TOTAL CREATINE 22036 YOV[facility] PEDROZA KINASE MB 0 [facility] FRACTION INC INC ONLY GROUND A0425 [facility] MILEAGE 9 AMBULANCE AMBULANCE PER SERVICE SERVICE STATUTE MILE AMBULANCE A0429 [facility] SERVICE 9 AMBULANCE AMBULANCE BLS SERVICE SERVICE EMERGENCY TRANSPORT DUP-SCAN 00788 YOV[facility] PEDROZA XTR VEINS 9 [facility] INC INC UNILATERA L/LIMITED STUDY ECG 58044 [facility] ROUTINE 9 [facility] [facility] ECG W/LEAST 12 LDS TRCG ONLY W/O I&R AMBULANCE [id number] JESSAMINE JESSAMINE SERVICE 9 CO CO BLS AMBULANCE AMBULANCE EMERGENCY TRANSPORT ECG [id number] [facility], ROUTINE 9 RADHA DMITRIY G ECG EMERGENCY W/LEAST PHYS INC 12 LDS I&R ONLY GROUND A0425 JESSAMINE JESSAMINE MILEAGE 9 CO CO PER AMBULANCE AMBULANCE STATUTE MILE ADMINISTR G0008 [facility], ATION OF 9 GABI W GABI Boateng INFLUENZA VIRUS VACCINE IIV3 84456 [facility], VACCINE 9 GABI Kilo Boateng SPLIT VIRUS 0.5 ML DOSAGE IM USE AMBULANCE A0429 [facility] SERVICE 9 AMBULANCE AMBULANCE BLS SERVICE SERVICE EMERGENCY TRANSPORT URNLS DIP 84243 [facility] PEDROZA 9 [facility] STICK/TAB INC INC LET REAGENT AUTO MICROSCOP Y BLOOD 47165 Y[facility] PEDROZA COUNT 9 [facility] COMPLETE INC INC AUTO&AUTO DIFRNTL WBC GROUND A0425 [facility] MILEAGE 9 AMBULANCE AMBULANCE PER SERVICE SERVICE STATUTE MILE BASIC 51938 YOVANY PEDROZA METABOLIC 9 [facility] [address] YOVANY PEDROZA ABDOMEN 9 [facility] W/O INC INC CONTRAST MATERIAL 3D 47542 YOVANY PEDROZA RENDERING 9 [facility] INC INC W/INTERP& POSTPROC DIFF WORK STATION CT PELVIS 14193 YOVANY PEDROZA W/O 9 [facility] CONTRAST INC INC MATERIAL RADIOLOGI 47899 [facility] C 9 [facility] EXAMINATI ON KNEE 3 VIEWS SET-UP Q0092 [facility] PORTABLE 9 [employer] X-RAY EQUIPMENT TRANS R0075 [facility] PRTBL 9 [facility] XRAY EQP&PERS GINETTE/NRS GINETTE-TRIP> 1 PT URNLS DIP 41097 COMBINED COMBINED 9 PHYSICIAN PHYSICIAN STICK/TAB S LAB S LAB LET REAGENT AUTO MICROSCOP Y DEBRIDEME 58846 ASHA, ASHA, NT SKIN 9 ANGY S ANGY S PARTIAL THICKNESS MRI LOWER 37556 BRITTNEY LUGO, EXTREM 9 HAYLEY HARDY OTH/THN JT W/O & W/CONTR MATR COLLECTIO 21812 COMBINED COMBINED N VENOUS 9 PHYSICIAN PHYSICIAN BLOOD S [place] [address] COMBINED COMBINED UREA 9 PHYSICIAN PHYSICIAN NITROGEN S LAB S LAB QUANTITAT SALONI TRAVEL [address] MED 9 PHYSICIAN PHYSICIAN NEC LAB S LAB S LAB SPEC; PRORATD TRIP CHRG CREATININ 69969 COMBINED COMBINED E BLOOD 9 PHYSICIAN PHYSICIAN S LAB S LAB DEBRIDEME 09827 FOLLMER, FOLLMER, NT SKIN 9 ANGY S ANGY S PARTIAL THICKNESS DEBRIDEME 45843 FOLLMER, FOLLMER, NT SKIN 9 ANGY S ANGY S PARTIAL THICKNESS DEBRIDEME 79894 FOLLMER, FOLLMER, NT SKIN 9 ANYG S ANGY S PARTIAL THICKNESS RADIOLOGI 86461 ASHA BARRY, C 9 ANGY S ANGY S EXAMINATI ON FOOT 2 VIEWS SBSQ 91010 [facility], NURSING 9 GABI Boateng FACIL CARE/DAY MINOR COMPLJ 15 MIN ORTHOPANT 63878 [facility] KARAN ESTRADA 8 FOR EDENILSON E ORAL&MAXI LLOFACIAL SURGERY IIV3 56703 [facility], VACCINE 8 GABI Boateng SPLIT VIRUS 0.5 ML DOSAGE IM USE ADMINISTR G0008 [facility], ATION OF 8 GABI Boateng INFLUENZA VIRUS VACCINE BASIC 61664 COMBINED COMBINED METABOLIC 8 PHYSICIAN PHYSICIAN PANEL S LAB S LAB CALCIUM TOTAL BLOOD 34782 COMBINED COMBINED COUNT 8 PHYSICIAN PHYSICIAN COMPLETE S LAB S LAB AUTO&AUTO DIFRNTL WBC COLLECTIO 52517 COMBINED COMBINED N VENOUS 8 PHYSICIAN PHYSICIAN BLOOD S LAB S LAB VENIPUNCT URE TRAVEL [address] MED 8 PHYSICIAN PHYSICIAN NEC LAB S LAB S LAB SPEC; PRORATD TRIP CHRG RADEX 59622 YOVANY YOVANY WRIST 8 [facility] COMPLETE INC INC MINIMUM 3 VIEWS GROUND A0425 [facility] AMBULANCE PER SERVICE SERVICE STATUTE MILE AMBULANCE A0429 [facility] SERVICE 8 AMBULANCE AMBULANCE [facility] SERVICE SERVICE EMERGENCY TRANSPORT SBSQ 52662 CR[facility] LYN[facility], NURSING 8 GABI Boateng FACIL CARE/DAY MINOR COMPLJ 15 MIN SBSQ 46818 [facility], NURSING 8 GABI Boateng FACIL CARE/DAY MINOR COMPLJ 15 MIN Encounters Encounter Start End Date Code Location Performer Type Date [facility] YOVANY - 7 7 [facility] 34009 YOVANY 7 7 [facility] [place] VISIT HIGH/URGE NT SEVERITY EMERGENCY [address] [facility] DEPT 7 7 PHYSICIAN VISIT S, [facility] HIGH SEVERITY& THREAT [facility] EMERGENC[facility] [address] [facility] DEPT 7 7 PHYSICIAN VISIT S, [facility] HIGH SEVERITY& THREAT [facility] YOVANY - 7 7 [facility] YOVANY - 6 6 [facility] [address] [facility] DEPT 6 6 PHYSICIAN BRITTANEY VISIT S, [facility] HIGH SEVERITY& THREAT [facility] YOVANY - 6 6 [facility] 19142 YOVANY 6 6 [facility] [place] VISIT MODERATE SEVERITY OFFICE 20268 [facility] CONSULT 5 5 CLAUDINE BOWLES PHYSICIAN NEW/ESTAB S ASSIST PATIENT 60 MIN HOSPITAL YOVANY - 5 5 [facility] YOVANY - 5 5 [facility] YOVANY - 5 5 [facility] YOVANY [facility] 4 4 [facility] YOVANY [facility] 3 3 [facility] YOVANY - 2 2 [facility] OUTPATIEN [facility] HOSPITAL YOVANY [facility] 2 2 [facility] OUTPATIEN [facility] HOSPITAL YOVANY [facility] 2 2 [facility] OUTPATIEN [facility] HOSPITAL YOVANY - 2 2 [facility] EM[facility] 67396 LEYDI CHRISTOPHER DEPT 1 1 EMERGENCY III MAXIM VISIT SERVICES HIGH SEVERITY& THREAT [facility] Y[facility] - 1 1 [facility] OUTPATIEN [facility] EMERGENCY 64740 YOVANY 1 1 [facility] T VISIT HIGH/URGE NT SEVERITY HOSPITAL YOVANY - 1 1 [facility] OUTPATIEN [facility] EMERGENCY 06410 LEYID CHRISTOPHER DEPT 1 1 EMERGENCY III MAXIM VISIT SERVICES HIGH SEVERITY& THREAT FUN EMERGENCY 78001 [facility] 1 [facility] HIGH/URGE NT SEVERITY HOSPITAL UNIVERSIT - 1 1 [facility] UNIVERS[facility] - 1 1 [facility] T OFFICE 91113 [facility] 1 1 FOOT FOOT T 30 PROFESSIO PROFESSIO MINUTES NALS NAL EMERGENCY 81452 LEYDI HECTOR, 0 0 EMERGENCY [facility] SERVICES T VISIT HIGH/URGE ASSOCIATE NT S SEVERITY HOSPITAL YOVANY - 0 0 [facility] OUT[facility]EN [facility] T EMERGENCY 11244 YOVANY 0 0 [facility] T VISIT LIMITED/M INOR PROB OFFICE 38480 [facility], OUTPATIEN 0 0 IMPLANT & ERIC R T NEW 20 ORAL MINUTES [facility] YOVANY - 0 0 [facility] OUTPATIEN INC T EMERGENCY 04005 LEYDI HECTOR, DEPT 0 0 EMERGENCY ALEX S VISIT SERVICES HIGH SEVERITY& ASSOCIATE THREAT S FUN EMERGENCY 23209 YOVANY 0 0 [facility] T VISIT HIGH/URGE NT SEVERITY EMERGENCY 75845 LEYDI HECTOR, DEPT 0 0 EMERGENCY ALEX S VISIT SERVICES HIGH SEVERITY& ASSOCIATE THREAT S FUN EMERGENCY 63075 YOVANY 0 0 [facility] VISIT HIGH/URGE NT SEVERITY HOSPITAL YOVANY - 0 0 [facility] EMERGENCY 20591 LEYDI CHRISTOPHER DEPT 0 0 EMERGENCY III, VISIT SERVICES LUISANA HIGH SEVERITY& ASSOCIATE THREAT S [facility] EMERGENCY 72523 YOVANY 0 0 [facility] T VISIT MODERATE SEVERITY HOSPITAL YOVANY - 0 0 [facility] HOSPITAL YOVANY [facility] 0 0 [facility] EMERGENCY 45226 YOVANY 0 0 [facility] T VISIT HIGH/URGE NT SEVERITY EMERGENCY 21871 LEYDI HECTOR, DEPT 0 0 EMERGENCY ALEX S VISIT SERVICES HIGH SEVERITY& ASSOCIATE THREAT S [facility] OFFICE 73371 ASHA BARRY OUTPATIEN 0 0 ANGY S ANGY S T VISIT 10 MINUTES EMERGENCY 24954 [facility]ANY 9 9 [facility] T VISIT LOW/MODER SEVERITY HOSPITAL YOVANY - 9 9 [facility] EMERGENCY 27202 [facility] 9 9 HOSPITAL VISIT HIGH SEVERITY& THREAT [facility] [address] [facility] EM[facility] 90495 [facility], 9 9 RADHA [facility] EMERGENC[facility] T VISIT PHYS INC MODERATE SEVERITY EMERGENCY 13077 LEYDI HECTOR, DEPT 9 9 EMERGENCY ALEX S VISIT SERVICES HIGH SEVERITY& ASSOCIATE THREAT S [facility] YOVANY - 9 9 [facility] OUTPATIEN INC T EMERGENCY 66067 YOVANY 9 9 [facility] INC T VISIT HIGH/URGE NT SEVERITY OFFICE 25682 ASHA BARRY OUTPATIEN 9 9 ANGY S ANGY S T VISIT 10 MINUTES OFFICE 87097 ASHA BARRY OUTPATIEN 9 9 ANGY S ANGY S T VISIT 10 MINUTES OFFICE 42589 ASHA BARRY OUTPATIEN 9 9 ANGY S ANGY S T NEW 30 MINUTES OFFICE 63079 [facility] JUSTIN ESTRADA 8 8 FOR EDENILSON Guerrier T NEW 10 ORAL&MAXI MINUTES LLOFACIAL SURGERY EMERGENCY 55985 YOVANY 8 8 [facility] DEPART[facility] INC T VISIT MODERATE SEVERITY HOSPITAL YOVANY - 8 8 [facility] OUT[facility] INC T
--- OUTSIDE RECORDS SUMMARY | 2017-06-08 23:02 | External Medical Summary Rpt ---
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 Phone ALFARIS MOH, ALFARIS Unavailable [...] JAM BRAUDIS JAM, BRAUDIS Unavailable Unavailable JAM [facility] Unavailable Unavailable SERVICE, [facility] Unavailable Unavailable SERVICE, [facility] SERVICE [facility], [facility] Unavailable Unavailable [facility] Unavailable Unavailable [...] ANIRUDH ALEX HECTOR, Unavailable Unavailable ALEX HECTOR [facility] Unavailable Unavailable INC, [facility] Unavailable Unavailable HOSPITAL P, [facility] P [facility], Unavailable Unavailable [facility] DMITRIY TREVIZO, Unavailable Unavailable TREVIZO, DMITRIY G [facility] Unavailable Unavailable AM[facility]ULANCE, [facility] MANDY REGGIE, MANDY Unavailable Unavailable REGGIE [facility] Unavailable Unavailable [facility], [facility] Unavailable Unavailable [facility], [facility] Unavailable [facility], [facility] Unavailable Unavailable [facility], [facility] JR JR DWI, JR Unavailable Unavailable JR DWI JR JR DWI, JR Unavailable Unavailable JR DWI JR, SHIRA E, Unavailable Unavailable JR, SHIRA E [facility] Unavailable Unavailable 11, [facility] 11 [facility] Unavailable Unavailable ACTION, [facility] Unavailable Unavailable SERVICES, [facility] MCKEMIE JR MAXIM, Unavailable Unavailable [...] [facility] CASTILLO, Unavailable Unavailable CASTILLO [facility], Unavailable Unavailable [facility] Unavailable Unavailable [facility] Unavailable Unavailable ASSIST, [facility], Unavailable Unavailable [facility] WEHRMAN III MAXIM, Unavailable Unavailable [facility] III MAXIM WEHR[facility] III MAXIM, Unavailable Unavailable [facility] WEHRANA LAURA IIILUISANA, Unavailable Unavailable LUISANA CHRISTOPHER III, WISE JAM Unavailable Unavailable Purpose Continuity of Care Document - 12-15-2007 through 2016 Problems Code Diagnosis DOS Provider Status D649 ANEMIA 03-12-2017 [facility] UNSPECIFIED PHYSICIANS LA I10 ESSENTIAL 03-12-2017 [facility] PRIMARY [facility] HYPERTENSIO LA N I498 OTHER 02-22-2017 [facility] SPECIFIED AMBULANCE CARDIAC SERVICE ARRHYTHMIAS J9811 ATELECTASIS 02-22-2017 [facility] K219 GASTRO-ESOP 02-22-2017 [facility] P WITHOUT ESOPHAGITIS R0789 OTHER CHEST 02-22-2017 [facility] R079 CHEST PAIN 02-22-2017 [facility] I208 OTHER FORMS 01-21-2017 [facility] AN[facility]A PHYSICIANS PECTORIS GROUP R0602 SHORTNESS 01-21-2017 [facility] OF BREATH PHYSICIANS GROUP R069 UNSPECIFIED 01-21-2017 [facility]ANS ABNORMALITI GROUP ES OF BREATHING R251 TREMOR 01-17-2017 [facility] UNSPECIFIED [facility]YSICIANS, PLLC R4182 ALTERED 01-17-2017 [facility] MENTAL AMBULANCE STATUS SERVICE UNSPECIFIED I209 ANGINA 01-13-2017 [facility] UNSPECIFIED INC R0600 DYSPNEA 01-13-2017 [facility] INC Z720 TOBACCO USE 01-13-2017 [facility] INC [id number] OTHER LONG 01-08-2017 [facility] P DRUG THERAPY [id number] PAIN IN 07-23-2016 [facility] RIGHT FOOT MOBILE DIAGNOSTIC SE E876 HYPOKALEMIA 07-05-2016 [facility] K209 ESOPHAGITIS 07-05-2016 [facility] UNSPECIFIED INC K5900 CONSTIPATIO 07-05-2016 [facility] N PHYSICIANS, UNSPECIFIED PLL N200 CALCULUS OF 07-05-2016 [facility] R1084 GENERALIZED 07-05-2016 [facility] ABDOMINAL [facility] PAIN [facility] R1110 VOMITING 07-05-2016 [facility]NSPEC[facility] R112 NAUSEA WITH 07-05-2016 [facility]OMITING [facility]YSICIANS, UNSPECIFIED [facility] B351 TINEA 05-28-2016 BRAUDIS JAM UNGUIUM H28456 UNS 05-28-2016 BRAUDIS JAM ATHEROSCLER CANTWELL ART EXTREM BILATERAL LEGS C83947 PAIN IN 05-28-2016 BRAUDIS JAM RIGHT TOES N94775 PAIN IN 05-28-2016 BRAUDIS JAM LEFT TOES J189 PNEUMONIA 05-01-2016 [facility] UNSPECIFIED [facility]ICAL ORGANISM IMAGING ASS J984 OTHER 05-01-2016 [facility] DISORDERS MEDICAL OF LUNG IMAGING ASS K210 GASTRO-ESOP 05-01-2016 [facility] P DISEASE W/ ESOPHAGITIS R05 COUGH 05-01-2016 [facility] R1010 UPPER 05-01-2016 [facility] ABDOMINAL AMBULANCE PAIN SERVICE UNSPECIFIED R109 UNSPECIFIED 10-24-2015 [facility] ABDOMINAL PHYSICIANS PAIN ASSIST R69 ILLNESS 10-24-2015 [facility] UNSPECIFIED TRANSPORTAT ION SER Z791 [facility] 10-24-2015 [facility] CURR PHYSICIANS NON-STEROID ASSIST AL&ANTI-INF LAMMATORIES J219 ACUTE 10-09-2015 [facility] IS INC UNSPECIFIED J441 CHRONIC 10-09-2015 [facility] OBSTRUCTIVE [facility] PULMONARY INC DZ W/EXACERBAT ION E119 TYPE 2 08-22-2015 EXPRESS DIABETES MOBILE MELLITUS DIAGNOSTIC WITHOUT SE COMPLICATIO NS Y50905 PAIN IN 08-22-2015 [facility] LEFT HIP [facility] N68987 PAIN IN 08-22-2015 [facility] LEFT KNEE [facility]ICAL [facility]ING ASS V62655 PAIN IN 08-22-2015 [facility] LEFT THIGH [facility]ICAL IM[facility] ASS E37373I UNSPECIFIED 08-22-2015 EXPRESS INJURY MOBILE LEFT HIP DIAGNOSTIC INITIAL SE ENCOUNTER L851 ACQ 08-21-2015 BRAUDIS JAM KERATOSIS KERATODERMA PALMARIS ET PLANTARIS 70023 ABDOMINAL 05-30-2015 [facility] PAIN, MEDICAL EPIGASTRIC IMAGING ASS 75017 OTHER 05-21-2015 [facility] DYSPNEA AND MEDICAL [place]AG[place] [address] CHEST PAIN 05-21-2015 [facility] UNSPECIFIED [facility]ICAL IM[facility]ING ASS 42483 05-21-2015 [facility] TRANSPORTAT ION SER 5180 PULMONARY 05-07-2015 [facility] COLLAPSE [facility] 4019 UNSPECIFIED 04-06-[address] [facility] P N 43615 DIVERTICULO 03-25-2015 [facility] SIS OF MEDICAL COLON IMAGING ASS 1101 DERMATOPHYT 11-27-2014 BRAUDIS JAM OSIS OF NAIL 90163 ATHEROSCLER 11-27-2014 BRAUDIS JAM OSIS CANTWELL ART EXTREMITIES UNSPEC 7011 ACQUIRED 11-27-2014 BRAUDIS TIFFANIE KERATODERMA 7295 PAIN IN 11-27-2014 BRAUDIS JAM SOFT TISSUES OF LIMB 7862 COUGH 08-16-2014 [facility] 70299 NONSPEC 08-09-2014 [facility] REACT MOBILE TUBERCULIN DIAGNOSTIC SKIN TEST SE W/O ACTIVE TB 515 POSTINFLAMM 06-05-2014 [facility] PULMONARY IMAGING ASS FIBROSIS 7851 PALPITATION 06-05-2014 [facility] S [facility] 496 CHRONIC 05-27-2014 [facility] AIRWAY MEDICAL OBSTRUCTION IMAGING ASS NEC 6101 DIFFUSE 05-03-2014 [facility] MASTOPATHY PHYS 60885 MASTODYNIA 05-03-2014 JR JR DWI 4928 OTHER 04-25-2014 [facility] EMPHYSEMA [facility] 7866 SWELLING, 04-25-2014 [facility] LUMP IN INC CHEST 74743 OTHER 04-25-2014 [facility] NONSPECIFIC MEDICAL ABNORMAL IMAGING ASS FINDING OF LUNG FIELD 2768 HYPOPOTASSE 04-05-2014 WEHRMAN III PEG MAXIM 09741 TRANSIENT 02-17-2014 [facility] FLA VISUAL LOSS 81253 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 72825 PSYCHOPHYSI 02-16-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 LYDIA MANSI VISUAL DISTURBANCE S 31146 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-16-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 LYDIA CEREBRAL ARTERY OCCLUSION W/INFARCT 78866 OSTEOARTHRO 09-02-2013 PETTEY JAM SIS UNSPEC WHETHER GEN/LOC LOWER LEG 77465 PAIN IN 09-02-2013 [facility] JOINT, [facility] LOWER LEG INC 4660 ACUTE 10-22-2012 JR JR BRONCHITIS DWI 490 BRONCHITIS 10-22-2012 L[facility] MAXIM NOT SPECIFIED ACUTE OR CHRONIC 7802 SYNCOPE AND 08-04-2012 [facility] CO[facility]APSE [facility] 12012 OTHER CHEST 08-03-2012 [facility] LYDIA PAIN 2749 GOUT, 06-25-2012 [facility] LYDIA UNSPECIFIED 70775 SHORTNESS 06-25-2012 [facility] LYDIA OF BREATH 4111 INTERMEDIAT 05-28-2012 [facility] PAN E CORONARY SYNDROME 4139 OTHER AND 05-28-2012 [facility] DANIEL UNSPECIFIED MAXIM ANGINA PECTORIS 46786 OTHER 05-28-2012 [facility] DISEASES OF MEDICAL LUNG NOT IMAGING ASS ELSEWHERE CLASSIFIED 5990 URINARY 03-12-2011 [facility] TRACT PHYSICIANS INFECTION LA SITE NOT SPECIFIED 80417 OTHER 03-12-2011 [facility] ABNORMAL PHYSICIANS GLUCOSE LA 9597 INJURY 03-12-2011 COM[facility]ED OTHER&UNSPE PHYSICIANS CIFIED KNEE LA LEG ANKLE&FOOT 5589 OTH&UNSPEC 02-05-2011 [facility] NONINFECTIO [facility] US INC GASTROENTER ITIS&COLITI S 23074 OTHER 02-05-2011 [facility] MALAISE AND AMBULANCE FATIGUE SERVICE 87357 NAUSEA WITH 02-05-2011 [facility] 21218 DIARRHEA 02-05-2011 [facility] V5869 LONG-TERM 02-05-2011 [facility] (CURRENT) [facility] USE OF INC OTHER MEDICATIONS 700 CORNS AND 01-27-2011 [facility] 8930 OPEN WOUND 01-06-2011 [facility] MENTION COMPLICATIO N 7350 HALLUX 12-16-2010 [facility] 7354 OTHER 12-16-2010 [place] [facility] TO[place] FOOT PROFESSIONA LS 8931 OPEN WOUND 12-16-2010 [facility] [place] [address] HEAD 04-03-2010 [facility] INJURY, AMBULANCE UNSPECIFIED SERVICE 920 CONTUSION 04-02-2010 [facility] EYE E8889 UNSPECIFIED 04-02-2010 [facility] 5210 DENTAL 03-04-2010 [facility] 7245 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-15-2010 [facility] BACKACHE AMBULANCE SERVICE 87138 ABDOMINAL 01-31-2010 [facility] MEDICAL UNSPECIFIED IMAGING SITE ASSOCIATES 91924 ABDOMINAL 01-31-2010 [facility] PAIN, AMBULANCE GENERALIZED SERVICE 74138 ULCER OF 01-30-2010 [facility] ANGY OTHER PART OF FOOT 76462 UNSPECIFIED 01-26-2010 [facility] 7804 DIZZINESS 01-26-2010 [facility] GIDDINESS IMAGING [facility] 7840 HEADACHE 01-26-2010 [facility] AMBULANCE SERVICE 4619 ACUTE 12-02-2009 [facility] SINUSITIS, [facility] PROF SERV 17602 POISONING 09-21-2009 [facility] N EMERGENCY AND RELATED PHYS INC NARCOTICS OTHER V0481 NEED 09-17-2009 [facility] PROPHYLACTI GABI Guzmán VACCINATION &INOCULATIO N FLU 47183 HEMATURIA 07-27-2009 [facility] UNSPECIFIED AMBULANCE SERVICE 77613 ABDOMINAL 07-27-2009 [facility] OTHER EMERGENCY SPECIFIED SERVICES SITE ASSOCIATES 37062 PAIN IN 04-19-2009 BRITTNEY, JOINT, [facility] ANKLE AND FOOT 6829 CELLULITIS 02-23-2009 CRIS, AND ABSCESS GABI Boateng OF UNSPECIFIED SITE 5253 RETAINED 10-18-2008 [facility] DENTAL RUST FOR ORAL&MAXILL OFACIAL SURGERY 32223 PAIN IN 07-15-2008 [facility] JOINT, AMBULANCE FOREARM SERVICE 12223 SPRAIN AND 07-15-2008 [place] STR[place] OF MEDICAL UNSPECIFIED IMAGING SITE OF ASSOCIATES WRIST E8497 PLACE OF 07-15-2008 [facility] MEDICAL RESIDENTIAL IMAGING ASSOCIATES INSTITUTION E927 OVEREXERTIO 07-15-2008 [place] N&STRENUOUS MEDICAL &REPETITIVE IMAGING ASSOCIATES MVMNTS/LOAD S 28488 OSTEOARTHRO 06-23-2008 Agusto LYNCH INVLV MX GABI [...] 80 7- 8- 00 14 CA ve NC 01 20 20 53 RE AM 00 [...] 80 8- 7- 00 14 CA ve NC 01 20 20 35 RE AM 00 [...] AR MA MG CY TA BL ET NC 59 06 07 28 7 00 ME [...] 20 2- 2- 00 14 CA ve NC 00 20 20 18 RE AM 60 [...] 20 4- 5- 00 14 CA ve NC 00 20 20 04 RE AM 60 [...] 20 7- 7- 00 13 CA ve NC 00 20 20 90 RE AM 60 [...] 20 7- 0- 00 13 CA ve NC 00 20 20 76 RE AM 60 [...] 80 0- 7- 00 13 CA ve NC 01 20 20 62 RE AM 00 [...] 80 1- 3- 00 13 CA ve NC 01 20 20 47 RE AM 00 [...] 00 1. 1 ME 36 AR Ac NC 78 -1 -0 00 D 71 NO [...] Procedure DOS Code Location Performer Comment COLLECTIO 59218 COMBINED COMBINED N VENOUS 7 PHYSICIAN PHYSICIAN BLOOD S LA S LA VENIPUNCT URE TRAVEL [address] MED 7 PHYSICIAN PHYSICIAN NEC LAB S LA S LA SPEC; PRORATD TRIP CHRG BASIC 51418 COMBINED COMBINED METABOLIC 7 PHYSICIAN PHYSICIAN [place] [address] [facility] PEDROZA TROPONIN 7 [facility] [place] [address] [facility] PEDROZA TROPONIN 7 [facility] HOSP QUANTITAT INC INC SALONI BLOOD 46064 [facility] PEDROZA COUNT 7 [facility] COMPLETE INC INC AUTO&AUTO DIFRNTL WBC RADIOLOGI 32223 [facility] C EXAM 7 MEDICAL MEDICAL CHEST 2 IMAGING IMAGING VIEWS ASS ASS FRONTAL&L ATERAL ECG 06829 [facility] ROUTINE 7 PHYSICIAN ECG S, PLLC W/LEAST 12 LDS I&R ONLY GROUND A0425 [facility] 7 AMBULANCE AMBULANCE PER SERVICE SERVICE STATUTE MILE COMPREHEN 73247 [facility] LAST SIVE 7 [facility] [place] [address] [facility] PEDROZA AMYLASE 7 [facility] INC INC CREATINE 74350 [facility] MARIANO KINASE MB 7 [facility] FRACTION INC ONLY CREATINE 20490 [facility] KIMBLES KINASE 7 [facility] [place] [address] [facility] PEDROZA LIPASE 7 [facility] INC INC ECG 26713 [facility] PEDROZA ROUTINE 7 [facility] ECG INC INC W/LEAST 12 LDS TRCG ONLY W/O I&R AMB A0427 [facility]ICE 7 AMBULANCE AMBULANCE ALS SERVICE SERVICE EMERGENCY TRANSPORT LEVEL 1 RADIOLOGI 30510 [facility] C 7 PHYSICIAN EXAMINATI S, PLLC ON CHEST SINGLE VIEW FRONTAL MYOCARDIA 57009 [facility] SRIVASTAV L SPECT 7 PHYSICIAN A MULTIPLE S GROUP STUDIES CV STRS 73444 [facility] COOK TST 7 PHYSICIAN XERS&/OR S GROUP RX CONT ECG W/O I&R AMB A0427 [facility] SERVICE 7 AMBULANCE AMBULANCE ALS SERVICE SERVICE EMERGENCY TRANSPORT LEVEL 1 GROUND A0425 [facility] 7 AMBULANCE AMBULANCE PER SERVICE SERVICE STATUTE MILE ECG 26000 [facility] ROUTINE 7 PHYSICIAN ECG S, PLLC W/LEAST 12 LDS I&R ONLY ECG 85910 [facility] PEDROZA ROUTINE 7 [facility] HOS[facility] ECG INC INC W/LEAST 12 LDS TRCG ONLY W/O I&R AMB A0427 [facility] SERVICE 7 AMBULANCE AMBULANCE ALS SERVICE SERVICE EMERGENCY TRANSPORT LEVEL 1 RADIOLOGI 35859 [facility] CHIDI C 7 MEDICAL EXAMINATI IMAGING ON CHEST ASS SINGLE VIEW FRONTAL CT THORAX 62453 [facility] 7 MEDICAL W/CONTRAS IMAGING T ASS MATERIAL ECG 51514 [facility] SWATHI ROUTINE 7 [facility] W/LEAST P 12 LDS I&R ONLY GROUND A0425 [facility] 7 AMBULANCE AMBULANCE PER SERVICE SERVICE STATUTE MILE BASIC 78267 COMBINED COMBINED METABOLIC 7 PHYSICIAN PHYSICIAN PANEL S LA S LA CALCIUM TOTAL TRAVEL [address] MED 7 PHYSICIAN PHYSICIAN NEC LAB S LA S LA SPEC; PRORATD TRIP CHRG COLLECTIO 46468 COMBINED COMBINED N VENOUS 7 PHYSICIAN PHYSICIAN BLOOD S LA S LA VENIPUNCT URE TRAVEL [address] MED 6 PHYSICIAN PHYSICIAN NEC LAB S LA S LA SPEC; PRORATD TRIP CHRG COLLECTIO 76268 COMBINED COMBINED N VENOUS 6 PHYSICIAN PHYSICIAN BLOOD S LA S LA VENIPUNCT URE COMPREHEN 57512 COMBINED COMBINED SIVE 6 PHYSICIAN PHYSICIAN METABOLIC S LA S LA PANEL BLOOD 89764 COMBINED COMBINED COUNT 6 PHYSICIAN PHYSICIAN COMPLETE S LA S LA AUTO&AUTO DIFRNTL WBC BLOOD 54889 COMBINED COMBINED COUNT 6 PHYSICIAN PHYSICIAN COMPLETE S LA S LA AUTO&AUTO DIFRNTL WBC COMPREHEN 41634 COMBINED COMBINED SIVE 6 PHYSICIAN PHYSICIAN METABOLIC S LA S LA PANEL TRAVEL [address] MED 6 PHYSICIAN PHYSICIAN NEC LAB S LA S LA SPEC; PRORATD TRIP CHRG COLLECTIO 32686 COMBINED COMBINED N VENOUS 6 PHYSICIAN PHYSICIAN BLOOD S LA S LA VENIPUNCT URE ECG 73290 [facility] NORRIS JR ROUTINE 6 [facility] W/LEAST P 12 LDS I&R ONLY GROUND A0425 [facility] 6 AMBULANCE AMBULANCE PER SERVICE SERVICE STATUTE MILE CT THORAX 96981 [facility] ALL 6 MEDICAL W/CONTRAS IMAGING T ASS MATERIAL RADIOLOGI 88663 [facility] C 6 MEDICAL MEDICAL EXAMINATI IMAGING IMAGING ON CHEST ASS ASS SINGLE VIEW FRONTAL AMB A0427 RUBÉN [facility] SERVICE 6 AMBULANCE AMBULANCE ALS SERVICE SERVICE EMERGENCY TRANSPORT LEVEL 1 SET-UP Q0092 [facility] PORTABLE 6 MOBILE MOBILE X-RAY DIAGNOSTI DIAGNOSTI EQUIPMENT C SE C SE RADEX 12019 [facility] FOOT 6 MOBILE MOBILE COMPLETE DIAGNOSTI DIAGNOSTI MINIMUM 3 C SE C SE VIEWS TRANS R0070 [facility] EXPRESS PRTBL 6 MOBILE MOBILE X-RAY DIAGNOSTI DIAGNOSTI EQP&PERS C SE C SE GINETTE/NRS GINETTE-TRIP 1 PT CULTURE 73036 [facility] PEDROZA BACTERIAL 6 [facility] INC INC QUANTTATI VE COLONY COUNT URINE CULTURE 49536 [facility] P[facility]RO[facility] BCT 6 [facility] ISOL&PRSM INC INC PTV ID ISOLATE EA URINE SUSCEPTIB 04267 [facility] PEDRO[facility] LTY STDY 6 [facility] ANTIMICRB INC INC IAL MICRO/[place] [address] [facility] PEDRO[facility] INFUSION 6 [facility] THER INC INC PROPH ADDL SEQUENTIA L TO 1 [place] [address] [facility] PEDROZA INFUSION 6 [facility] THERAPY/P INC INC ROPHYLAXI S /DX 1ST TO 1 HR THERAPEUT 01892 [facility]RO[facility] IC 6 [facility] INJECTION INC INC IV PUSH EACH NEW DRUG URNLS DIP 41682 [facility] PEDROZA 6 [facility] STICK/TAB INC INC LET REAGENT AUTO MICROSCOP Y RADIOLOGI 10658 [facility] Guzmán 6 [facility] EXAMINATI INC [place] [address] [facility] MURILLO ALL ABDOMEN & 6 MEDICAL PELVIS IMAGING W/O ASS CONTRAST MATERIAL ECG 17956 [facility] PEDROZA ROUTINE 6 [facility] ECG INC INC W/LEAST 12 LDS TRCG ONLY W/O I&R COMPREHEN 47977 YOAVNY PEDROZA SIVE 6 [facility] METABOLIC INC INC PANEL BLOOD 28931 [facility] P[facility]RO[facility] COUNT 6 [facility] COMPLETE INC INC AUTO&[place] [address] [facility] PEDROZA TROPONIN 6 [facility] QUANTITAT INC INC SALONI ECG 35639 [facility] NORRIS JR ROUTINE 6 [facility] W/LEAST P 12 LDS I&R ONLY AMBULANCE A0429 [facility] SERVICE 6 AMBULANCE AMBULANCE BLS SERVICE SERVICE EMERGENCY TRANSPORT PATIENT G8784 [facility] NOT 6 PHYSICIAN BRITTANEY IZAGUIRRE S, PLLC E.G. PT REFUSES URGENT/EM SIT 12-LEAD 3120F [facility] ECG 6 PHYSICIAN BRITTANE[place] PERFORMED [place], [place] [address] [facility] PEDROZA LIPASE 6 [facility] INC INC GROUND A0425 [facility] MILEAGE 6 AMBULANCE AMBULANCE PER SERVICE SERVICE STATUTE MILE BASIC 82764 COMBINED COMBINED METABOLIC 6 PHYSICIAN PHYSICIAN PANEL S LA S LA CALCIUM TOTAL TRAVEL [address] MED 6 PHYSICIAN PHYSICIAN NEC LAB S LA S LA SPEC; PRORATD TRIP CHRG COLLECTIO 65717 COMBINED COMBINED N VENOUS 6 PHYSICIAN PHYSICIAN BLOOD S LA S LA VENIPUNCT URE DEBRIDEME 63917 NOEMI FRANKLIN NT NAIL 6 JAM JAM ANY METHOD 6/> PARING/CU 82531 NOEMI FRANKLIN TTING 6 JAM JAM BENIGN HYPERKERA TOTIC LESION 2-4 BLOOD 42898 [facility] P[facility]RO[facility] OCCULT 6 [facility] PEROXIDAS INC INC E ACTV QUAL FECES 1-3 SPEC AMB A0427 [facility] SERVICE 6 AMBULANCE AMBULANCE ALS SERVICE SERVICE EMERGENCY TRANSPORT LEVEL 1 ECG 61552 [facility] P[facility]RO[facility] ROUTINE 6 [facility] ECG INC INC W/LEAST 12 LDS TRCG ONLY W/O I&R COMPREHEN 33143 [facility] P[facility]RO[facility] SIVE 6 [facility] [place] [address] [facility] PEDROZA LIPASE 6 [facility] [place] [address] [facility] PEDROZA AMYLASE 6 [facility] INC INC CREATINE 65681 [facility] YOVANY KINASE MB 6 [facility] FRACTION INC INC ONLY CREATINE 03043 [facility] P[facility] KINASE 6 [facility] TOTAL INC INC GROUND A0425 [facility] [place] [facility] 6 AMBULANCE AMBULANCE PER SERVICE SERVICE STATUTE MILE RADIOLOGI 01559 [facility] C EXAM 6 MEDICAL ABDIRAHMAN CHEST 2 IMAGING VIEWS ASS FRONTAL&L ATERAL ECG 42095 [facility] ECHEVARRIA ROUTINE 6 [facility] W/LEAST P 12 LDS I&[place] [address] [facility] PEDROZA TROPONIN 6 [facility] QUANTITAT INC INC SALONI BLOOD 84990 [facility]ANY COUNT 6 [facility] HOS[facility] COMPLETE INC INC AUTO&AUTO DIFRNTL WBC BLOOD 69927 COMBINED COMBINED COUNT 6 PHYSICIAN PHYSICIAN COMPLETE S LA S LA AUTO&AUTO DIFRNTL WBC BASIC 11781 COMBINED COMBINED METABOLIC 6 PHYSICIAN PHYSICIAN PANEL S LA S LA CALCIUM TOTAL TRAVEL [address] MED 6 PHYSICIAN PHYSICIAN NEC LAB S LA S LA SPEC; PRORATD TRIP CHRG COLLECTIO 16929 COMBINED COMBINED N VENOUS 6 PHYSICIAN PHYSICIAN BLOOD S LA S LA VENIPUNCT URE DEBRIDEME 24218 BRAUDIS BRAUDIS NT NAIL 6 JAM JAM ANY METHOD 1-5 PARING/CU 95604 BRAUDIS BRAUDIS TTING 6 JAM JAM BENIGN HYPERKERA TOTIC LESION 2-4 TRIMMING 98253 BRAUDIS BRAUDIS NONDYSTRO 6 JAM JAM PHIC NAILS ANY NUMBER PARING/CU 70176 BRAUDIS BRAUDIS TTING 5 JAM JAM BENIGN HYPERKERA TOTIC LESION 2-4 DEBRIDEME 79812 BRAUDIS BRAUDIS NT NAIL 5 JAM JAM ANY METHOD 6/> NONEMERG A0120 FEDERATED FEDERATED TRNSPRT: 5 MINI-BUS TRANSPORT TRANSPORT MTN ATION SER ATION SER AREA/OTH SYS RADIOLOGI 16370 [facility] 5 MEDICAL ERUM CHEST 2 IMAGING VIEWS ASS FRONTAL&L ATERAL RADIOLOGI 84778 [place] [facility] C 5 MEDICAL ABDIRAHMAN EXAMINATI IMAGING ON FEMUR ASS 2 VIEWS RADEX HIP 77352 [facility] CROTEZ[facility]NEY 5 MEDICAL ABDIRAHMAN UNILATERA IMAGING L ASS COMPLETE MINIMUM [address] PELVIS 42839 DOYLE MURILLO ALL W/O 5 MEDICAL CONTRAST IMAGING MATERIAL ASS RADIOLOGI 88735 [facility] GARCIABRITTNEY C 5 MEDICAL ABDIRAHMAN EXAMINATI IMAGING ON KNEE ASS 1/2 VIEWS PARING/CU 49929 BRAUDIS BRAUDIS TTING 5 JAM JAM BENIGN HYPERKERA TOTIC LESION 2-4 DEBRIDEME 26785 KATHERINUDIS BRAUDIS NT NAIL 5 [place]AM [place] METHOD 1-[place] [address] DOYLE MURILLO ALL ABDOMEN & 5 MEDICAL PELVIS IMAGING W/O ASS CONTRAST MATERIAL NONEMERG A0120 FEDERATED FEDERATED TRNSPRT: 5 MINI-BUS TRANSPORT TRANSPORT MTN [facility]OTH S[facility] CV STRS 90582 [facility] TST 5 PHYSICIAN XERS&/OR S GROUP RX CONT ECG W/O I&R CV STRS 59501 YOVANY NORRIS TST 5 [facility]OR [facility] RX CONT P ECG I&R ONLY MYOCARDIA 35168 YOVANY PEDROZA L SPECT 5 [facility] MULTIPLE INC INC STUDIES NONEMERG A0120 FEDERATED FEDERATED TRNSPRT: 5 MINI-BUS TRANSPORT TRANSPORT MTN [facility] RADIOLOGI 60727 [place] [facility] 5 MEDICAL ERUM EXAMINATI IMAGING ON CHEST ASS SINGLE VIEW FRONTAL RADIOLOGI 96879 YOVANY PEDROZA C 5 [facility] EXAMINATI INC INC ON CHEST SINGLE VIEW FRONTAL ECG 75267 YOVANY ECHEVARRIA ROUTINE 5 [facility] W/LEAST P 12 LDS I&R ONLY RADIOLOGI 09058 [facility] 5 MEDICAL ERUM EXAMINATI IMAGING [place] [address] [facility] & 5 MEDICAL ERUM PELVIS IMAGING W/O ASS CONTRAST MATERIAL PARING/CU 94066 NOEMI FRANKLIN TTING 5 JAM JAM BENIGN HYPERKERA TOTIC LESION 2-4 RADIOLOGI 92920 [facility] EXAM 4 MEDICAL ERUM CHEST 2 IMAGING VIEWS ASS FRONTAL&L ATERAL RADIOLOGI 55386 [facility] C EXAM 4 MOBILE MOBILE CHEST 2 DIAGNOSTI DIAGNOSTI VIEWS C SE C SE FRONTAL&L ATERAL NONEMERG A0120 FEDERATED FEDERATED TRNSPRT: 4 TRANS MINI-BUS TRANSPORT SERVBLUEG [facility] RO[facility] ARE[facility]/OTH SYS ECG 25351 ALFARIS ALFARIS ROUTINE 4 MOH MOH ECG W/LEAST 12 LDS I&R ONLY RADIOLOGI 90270 [facility] 4 MEDICAL ERUM EXAMINATI IMAGING ON CHEST ASS SINGLE VIEW FRONTAL RADIOLOGI 22561 [facility] 4 MEDICAL ABDIRAHMAN EXAMINATI IMAGING ON CHEST ASS SINGLE VIEW FRONTAL NONEMERG A0120 FEDERATED FEDERATED TRNSPRT: 4 TRANS MINI-BUS TRANSPORT SERVBLUEG [place] [facility] ECG 84198 [facility] ROUTINE 4 RADHA RADHA ECG EMERGENCY EMERGENCY W/LEAST PHYS PHYS 12 LDS I&R ONLY RADIOLOGI 95784 [facility] 4 MEDICAL ABDIRAHMAN EXAMINATI IMAGING ON CHEST ASS SINGLE VIEW FRONTAL NONEMERG A0120 FEDERATED FEDERATED TRNSPRT: 4 TRANS [facility] THORAX [address] [facility] 4 MEDICAL ABDIRAHMAN CONTRAST IMAGING MATERIAL ASS RADIOLOGI 96224 [facility] C 4 MEDICAL ABDIRAHMAN EXAMINATI IMAGING ON CHEST ASS SINGLE VIEW FRONTAL ECG 22446 ASHWIN CHRISTOPHER ROUTINE 4 III MAXIM III MAXIM ECG W/LEAST 12 LDS I&R ONLY NONEMERG A0120 FEDERATED FEDERATED TRNSPRT: 4 MINI-BUS TRANSPORT TRANSPORT [facility] SER AREA/[place] [address] RASLAU RASLAU ANGIOGRAP 4 FLA FLA HY NECK W/CONTRAS T/NONCONT RAST NONEMERG A0120 FEDERATED FEDERATED TRNSPRT: 4 MINI-BUS TRANSPORT TRANSPORT MTN ATION SER ATION SER AREA/[place] [address] RASLAU RASLAU ANGIOGRAP 4 FLA FLA HY HEAD W/CONTRAS T/NONCONT RAST CRITICAL 23398 CHIQUITA LYDIA CHIQUITA LYDIA CARE 4 ILL/INJUR ED PATIENT INIT 30-74 MIN PARING/CU 46031 NOEMI PANDEYUDIS TTING 4 JAM JAM BENIGN HYPERKERA TOTIC LESION 2-4 DEBRIDEME 81739 NOEMI PANDEYUDIS NT NAIL 4 JAM JAM ANY METHOD 6/> RADIOLOGI 37667 BRITTNEY BRITTNEY C EXAM 3 ABDIRAHMAN ABDIRAHMAN KNEE COMPLETE 4/MORE VIEWS ARTHROCEN 41056 PETTEY PETTEY TESIS 3 JAM JAM ASPIR&/IN J MAJOR JT/BURSA W/O US INJ J0702 PETTEY PETTEY BETAMETHA 3 JAM JAM SONE ACETATE & PHOSPHATE 3 MG NONEMERG A0120 LKLP CAC LKLP CAC TRNSPRT: 3 INC INC MINI-BUS REGION 11 REGION 11 MTN AREA/OTH SYS NONEMERG A0120 LKLP CAC LKLP CAC TRNSPRT: 3 INC INC MINI-BUS REGION 11 REGION 11 [facility] AREA/OTH SYS ECG 50634 JR NORRIS JR ROUTINE 2 DWI DWI ECG W/LEAST 12 LDS I&R ONLY ECG 97671 YOVANY PEDROZA ROUTINE 2 [facility] ECG INC INC W/LEAST 12 LDS TRCG ONLY W/O I&R RADIOLOGI 94847 BRITTNEY BRITTNEY C 2 ABDIRAHMAN ABDIRAHMAN EXAMINATI ON CHEST SINGLE VIEW FRONTAL OBSERVATI 78814 AARONKEITH SWATHI ON CARE 2 [place] [address] DOYLE CORTEZUTCHER HEAD/BRAI 2 MEDICAL ABDIRAHMAN N W/[place] [address] [facility] CORTEZBRITTNEY MAXILLOFA 2 MEDICAL ABDIRAHMAN CIAL W/O IMAGING CONTRAST ASS MATERIAL RADIOLOGI 42629 [facility] EXAM 2 MEDICAL ABDIRAHMAN CHEST 2 IMAGING VIEWS ASS FRONTAL&L ATERAL ECG 89005 LEYDI HOLLEY ROUTINE 2 EMERGENCY EMERGENCY ECG SERVICES SERVICES W/LEAST 12 LDS I&R ONLY ECG 99857 JR NORRIS JR ROUTINE 2 DWI DWI ECG W/LEAST 12 LDS I&R ONLY XTRNL ECG 98792 YOVANY PEDROZA & 48 HR 2 [facility] RECORDING INC INC EXTERNAL 46391 YOVANY YOVANY ECG 2 [facility] SCANNING INC INC ANALYSIS REPORT XTRNL ECG 43468 HERNANDEZMIChey NGMIE 2 JR MAXIM JR MAXIM CONTINUOU S RHYTHM W/I&R UP TO 48 HRS ECG 09994 YOVANY PEDROZA ROUTINE 2 [facility] ECG INC INC W/LEAST 12 LDS TRCG ONLY W/O I&R RADIOLOGI 62512 YOVANY YOVANY C 2 [facility] EXAMINATI INC INC ON CHEST SINGLE VIEW FRONTAL ECG 98318 TAWNY FUCHSEY ROUTINE 2 ANIRUDH ANIRUDH ECG W/LEAST 12 LDS I&R ONLY MYOCARDIA 07507 FALLUJI FALLUJI L SPECT 2 DENISE DENISE MULTIPLE STUDIES MYOCARDIA 12277 YOVANY PEDROZA L SPECT 2 [facility] MULTIPLE INC INC STUDIES CV STRS [address] [facility] [place] TST 2 XERS&/OR RX CONT ECG W/O I&R CV STRS 33150 YOVANY PEDROZA TST 2 [facility] XERS&/OR INC INC RX CONT ECG TRCG ONLY CV STRS 41071 JR NORRIS JR TST 2 DWI DWI XERS&/OR RX CONT ECG I&R ONLY NONEMERG A0120 LKLP LKLP TRNSPRT: 2 COMMUNITY COMMUNITY MINI-BUS ACTION ACTION NVN AREA/OTH SYS ECG 85886 SWATHI ECHEVARRIA ROUTINE 2 LYDIA LYDIA ECG W/LEAST 12 LDS I&R ONLY ECG 08-17-201 57517 TAWNY TAWNY ROUTINE 2 ANIRUDH ANIRUDH ECG W/LEAST 12 LDS I&R ONLY NONEMERG A0120 LKLP LKLP TRNSPRT: 2 COMMUNITY COMMUNITY [facility]I-[facility] ACTION ACTION MTN AREA/OTH SYS ECG 65605 LISETTE KNOX ROUTINE 2 [facility] ECG W/LEAST 12 LDS I&R ONLY RADIOLOGI 59348 CHUCKNeli BRITTNEY C 2 MEDICAL ABDIRAHMAN EXAMINATI IMAGING ON CHEST ASS SINGLE VIEW FRONTAL PARING/CU 89770 BRAUDIS BRAUDIS TTING 2 JAM JAM BENIGN HYPERKERA TOTIC LESION 2-4 TRIMMING 80922 BRAUDIS BRAUDIS NONDYSTRO 2 JAM JAM PHIC NAILS ANY NUMBER TRIMMING 72853 BRAUDIS BRAUDIS NONDYSTRO 2 JAM JAM PHIC NAILS ANY NUMBER PARING/CU 87119 BRAUDIS BRAUDIS TTING 2 JAM JAM BENIGN HYPERKERA TOTIC LESION 2-4 RADIOLOGI 38463 YOVANY PEDROZA C 1 [facility] EXAMINATI INC INC ON CHEST SINGLE VIEW FRONTAL COMPREHEN 73877 YOVANY PEDROZA SIVE 1 [facility] METABOLIC INC INC PANEL ECG 42319 YOVANY PEDROZA ROUTINE 1 [facility] ECG INC INC W/LEAST 12 LDS TRCG ONLY W/O I&R ECG 12194 YOVANY MCKEMIE ROUTINE 1 [facility] W/LEAST P 12 LDS I&[place] [address] YOVANY PEDROZA TROPONIN 1 [facility] QUANTITAT INC INC SALONI BLOOD 36217 YOVANY PEDROZA COUNT 1 [facility] COMPLETE INC INC AUTO&AUTO DIFRNTL WBC CREATINE 73651 YOVANY PEDROZA KINASE 1 [facility] TOTAL INC INC CREATINE 52120 YOVANY PEDROZA KINASE MB 1 [facility] FRACTION INC INC ONLY URNLS DIP 03151 COMBINED COMBINED 1 PHYSICIAN PHYSICIAN STICK/TAB S LA S LA LET REAGENT AUTO MICROSCOP Y GROUND A0425 [facility] MILEAGE 1 AMBULANCE AMBULANCE PER SERVICE SERVICE STATUTE MILE BLOOD 30751 YOVANY PEDROZA COUNT 1 [facility] COMPLETE INC INC AUTO&AUTO DIFRNTL WBC COMPREHEN 32364 YOVANY YOVANY SIVE 1 [facility] METABOLIC INC INC PANEL RADIOLOGI 85111 YOVANY PEDROZA C 1 [facility] EXAMINATI INC INC ON CHEST SINGLE VIEW FRONTAL PRESSURIZ 45892 YOVANY PEDROZA ED/NONPRE 1 [facility] SSURIZED [place] [address] YOVANY PEDROZA INFUSION 1 [facility] THERAPY/P INC INC ROPHYLAXI S /DX 1ST TO 1 HR THERAPEUT 47841 YOVANY PEDROZA IC 1 [facility] INJECTION INC INC IV PUSH EACH NEW DRUG AMB A0427 [facility] SERVICE 1 AMBULANCE AMBULANCE ALS SERVICE SERVICE EMERGENCY TRANSPORT LEVEL 1 NONEMERGE A0100 [facility] 1 COMMUNITY TRANSPORT ACTION ATION; TAXI DEBRIDEME 72378 [facility] OPEN 1 Y Y WOUND 20 [facility] SQ CM/< DEBRIDEME 29770 [facility] OPEN 1 Y Y WOUND 20 [facility] SQ CM/< DEBRIDEME 06507 [facility] NT OPEN 1 FOOT FOOT WOUND 20 PROFESSIO PROFESSIO SQ CM/< NALS NALS NONEMERGE A0100 [facility] 1 COMMUNITY TRANSPORT ACTION ATION; TAXI RADEX 39894 [place] [facility] J[facility] FOOT 1 MEDICAL COMPLETE SERV MINIMUM 3 FOUNDATIO VIEWS URNLS DIP 05849 COMBINED COMBINED 1 PHYSICIAN PHYSICIAN STICK/TAB S LA S LA LET REAGENT AUTO MICROSCOP Y NONEMERGE A0100 [facility] CAB NCY 0 COMMUNITY TRANSPORT ACTION ATION; TAXI URNLS DIP 47395 COMBINED COMBINED 0 PHYSICIAN PHYSICIAN STICK/TAB S LA S LA LET REAGENT AUTO MICROSCOP Y CULTURE 36443 COMBINED COMBINED BACTERIAL 0 PHYSICIAN PHYSICIAN S LA S LA QUANTTATI VE COLONY COUNT URINE URNLS DIP 15613 COMBINED COMBINED 0 PHYSICIAN PHYSICIAN STICK/TAB S LA S LA LET REAGENT AUTO MICROSCOP Y AMBULANCE A0429 [facility] SERVICE 0 AMBULANCE AMBULANCE BLS SERVICE SERVICE EMERGENCY TRANSPORT GROUND A0425 [facility] MILEAGE 0 AMBULANCE AMBULANCE PER SERVICE SERVICE STATUTE MILE ORTHOPANT 14948 [facility], OGRAM 0 IMPLANT & ERIC R [facility] ECG 16400 YOVANY NORRIS, ROUTINE 0 [facility] W/LEAST PROF SERV 12 LDS I&R ONLY ECG 96063 YOVANY PEDROZA ROUTINE 0 [facility] ECG INC INC W/LEAST 12 LDS TRCG ONLY W/O I&R ECG 24135 YOVANY PEDROZA ROUTINE 0 [facility] ECG INC INC W/LEAST 12 LDS TRCG ONLY W/O I&R URNLS DIP 18869 YOVANY PEDROZA 0 [facility] STICK/TAB INC INC LET REAGENT AUTO MICROSCOP Y BLOOD 19118 YOVANY PEDROZA COUNT 0 [facility] COMPLETE INC INC AUTO&[place] [address] YOVANY PEDROZA TROPONIN 0 [facility] QUANTITAT INC INC SALONI ECG 03624 LEYDI HECTOR, ROUTINE 0 EMERGENCY ALEX S ECG SERVICES W/LEAST 12 LDS ASSOCIATE I&R ONLY S GROUND A0425 [facility] [place] MILEAGE 0 AMBULANCE AMBULANCE PER SERVICE SERVICE STATUTE MILE BASIC 92949 YOVANY PEDROZA METABOLIC 0 [facility] PANEL INC INC CALCIUM TOTAL AMBULANCE A0429 [facility] SERVICE 0 AMBULANCE AMBULANCE BLS SERVICE SERVICE EMERGENCY TRANSPORT CREATINE 44583 YOVANY PEDROZA KINASE MB 0 [facility] FRACTION INC INC ONLY CREATINE 58386 YOVANY PEDROZA KINASE 0 [facility] TOTAL INC INC CREATINE 36041 YOVANY PEDROZA KINASE 0 [facility] TOTAL INC INC CREATINE 00218 YOVANY PEDROZA KINASE MB 0 [facility] [place] [address] YOVANY PEDROZA AMYLASE 0 [place] [address] YOVANY PEDROZA LIPASE 0 [facility] INC INC AMBULANCE A0429 [facility] SERVICE 0 AMBULANCE AMBULANCE BLS SERVICE SERVICE EMERGENCY TRANSPORT GROUND A0425 [facility] MILEAGE 0 AMBULANCE AMBULANCE PER SERVICE SERVICE STATUTE MILE ECG 84484 LEYDI HECTOR, ROUTINE 0 EMERGENCY ALEX S ECG SERVICES W/LEAST 12 LDS ASSOCIATE I&[place] [address] YOVANY PEDROZA TROPONIN 0 [facility] QUANTITAT INC INC SALONI BLOOD 13096 YOVANY PEDROZA COUNT 0 [facility] COMPLETE INC INC AUTO&AUTO DIFRNTL WBC URNLS DIP 83805 YOVANY PEDROZA 0 [facility] STICK/TAB INC INC LET REAGENT AUTO MICROSCOP Y ECG 36453 YOVANY PEDROZA ROUTINE 0 [facility] ECG INC INC W/LEAST 12 LDS TRCG ONLY W/O I&R COMPREHEN 21943 YOVANY PEDROZA SIVE 0 [facility] METABOLIC INC INC PANEL RADEX ABD 81617 YOVANY PEDROZA COMPL 0 [facility] AQT ABD INC INC W/S/E/D VIEWS 1 VIEW CH DEBRIDEME 90934 FOLLMER FOLLMER NT SKIN 0 ANGY ANGY PARTIAL THICKNESS 3D 86049 YOVANY PEDROZA RENDERING 0 [facility] W/INTERP INC INC & POSTPROCE SS SUPERVISI ON AMB A0427 [facility] SERVICE 0 AMBULANCE AMBULANCE ALS SERVICE SERVICE [place] [address] YOVANY PEDROZA HEAD/BRAI 0 [facility] N W/O INC INC CONTRAST MATERIAL GROUND A0425 [facility] MILEAGE 0 AMBULANCE AMBULANCE PER SERVICE SERVICE STATUTE MILE BLOOD 76511 COMBINED COMBINED COUNT 0 PHYSICIAN PHYSICIAN COMPLETE S LAB S LAB AUTO&AUTO DIFRNTL WBC COLLECTIO 46195 COMBINED COMBINED N VENOUS 0 PHYSICIAN PHYSICIAN BLOOD S LAB S LAB VENIPUNCT URE TRAVEL [address] MED 0 PHYSICIAN PHYSICIAN NEC LAB S LAB S LAB SPEC; PRORATD TRIP CHRG DEBRIDEME 09909 FOLLTERRI FOLLMER NT SKIN 0 ANGY ANGY PARTIAL THICKNESS THERAPEUT 50269 YOVANY PEDROZA IC 0 [facility] INJECTION INC [place] [address] YOVANY PEDROZA INFUSION 0 [facility] THERAPY/P INC INC ROPHYLAXI S /DX [address]ST [place] [address] [place] [address] YOVANY PEDROZA HEAD/BRAI 0 [facility] N W/O INC INC CONTRAST MATERIAL AMB A0427 [facility] SERVICE 0 AMBULANCE AMBULANCE ALS SERVICE SERVICE EMERGENCY TRANSPORT LEVEL 1 3D 54133 DOYLE CARTAGENA, RENDERING 0 MEDICAL GABRIELLA P W/INTERP IMAGING & ASSOCIATE POSTPROCE [place] ECG 56188 YOVANY PEDROZA ROUTINE 0 [facility] ECG INC INC W/LEAST 12 LDS TRCG ONLY W/O I&R BLOOD 95341 YOVANY PEDROZA COUNT 0 [facility] COMPLETE INC INC AUTO&[place] [address] YOVANY PEDROZA TROPONIN 0 [facility] QUANTITAT INC INC SALONI ECG 32247 YOVANY WALKERSON, ROUTINE 0 [facility] W/LEAST PROF SERV 12 LDS I&R ONLY HEPATIC 04178 YOVANY PEDROZA FUNCTION 0 [facility] PANEL INC INC GROUND A0425 [facility] MILEAGE 0 AMBULANCE AMBULANCE PER SERVICE SERVICE STATUTE MILE CREATINE 77065 YOVANY PEDROZA KINASE 0 [facility] TOTAL INC INC BASIC 43154 YOVANY PEDROZA METABOLIC 0 [facility] PANEL INC INC CALCIUM TOTAL CREATINE 49727 YOVANY PEDROZA KINASE MB 0 [facility] FRACTION INC INC ONLY GROUND A0425 [facility] MILEAGE 9 AMBULANCE AMBULANCE PER SERVICE SERVICE STATUTE MILE AMBULANCE A0429 [facility] SERVICE 9 AMBULANCE AMBULANCE BLS SERVICE SERVICE EMERGENCY TRANSPORT DUP-SCAN 44434 YOVANY PEDROZA XTR VEINS 9 [facility] INC INC UNIL[place] L/LIMITED STUDY ECG 28118 [facility] ROUTINE 9 [facility] ECG W/LEAST 12 LDS TRCG ONLY W/O I&R AMBULANCE A0429 JESSAMINE JESSAMINE SERVICE 9 CO CO BLS AMBULANCE AMBULANCE EMERGENCY TRANSPORT ECG 93458 [facility], ROUTINE 9 RADHA DMITRIY G ECG EMERGENCY W/LEAST PHYS INC 12 LDS I&R ONLY GROUND A0425 JESSAMINE JESSAMINE MILEAGE 9 CO CO PER AMBULANCE AMBULANCE STATUTE MILE ADMINISTR G0008 CRIS LYNCH, ATION OF 9 GABI W GABI Boateng INFLUENZA VIRUS VACCINE IIV3 07234 [facility], VACCINE 9 GABI Kilo Boateng SPLIT VIRUS 0.5 ML DOSAGE IM USE AMBULANCE A0429 [facility] SERVICE 9 AMBULANCE AMBULANCE BLS SERVICE SERVICE EMERGENCY TRANSPORT URNLS DIP 43333 YOVANY PEDROZA 9 [facility] STICK/TAB INC INC LET REAGENT AUTO MICROSCOP Y BLOOD 66500 YOVANY PEDROZA COUNT 9 [facility] COMPLETE INC INC AUTO&AUTO DIFRNTL WBC GROUND A0425 [facility] MILEAGE 9 AMBULANCE AMBULANCE PER SERVICE SERVICE STATUTE MILE BASIC 28383 YOVANY PEDROZA METABOLIC 9 [facility] [address] YOVANY PEDROZA ABDOMEN 9 [facility] W/O INC INC CONTRAST MATERIAL 3D 73694 YOVANY PEDROZA RENDERING 9 [facility] INC INC W/INTERP& POSTPROC DIFF WORK STATION CT PELVIS 77359 YOVANY PEDROZA W/O 9 [facility] CONTRAST INC INC MATERIAL RADIOLOGI 71245 [facility] C 9 [facility] EXAMINATI ON KNEE 3 VIEWS SET-UP Q0092 [facility] PORTABLE 9 [facility] X-RAY EQUIPMENT TRANS R0075 [facility] PRTBL 9 [facility] XRAY EQP&PERS GINETTE/NRS GINETTE-TRIP> 1 PT URNLS DIP 28729 COMBINED COMBINED 9 PHYSICIAN PHYSICIAN STICK/TAB S LAB S LAB LET REAGENT AUTO MICROSCOP Y DEBRIDEME 27003 ASHA, ASHA, NT SKIN 9 ANGY S ANGY S PARTIAL THICKNESS MRI LOWER 79881 BRITTNEY LUGO, EXTREM 9 HAYLEY HARDY OTH/THN JT W/O & W/CONTR MATR COLLECTIO 64483 COMBINED COMBINED N VENOUS 9 PHYSICIAN PHYSICIAN BLOOD S [place] [address] COMBINED COMBINED UREA 9 PHYSICIAN PHYSICIAN NITROGEN S LAB S LAB QUANTITAT SALONI TRAVEL [address] MED 9 PHYSICIAN PHYSICIAN NEC LAB S LAB S LAB SPEC; PRORATD TRIP CHRG CREATININ 20058 COMBINED COMBINED E BLOOD 9 PHYSICIAN PHYSICIAN S LAB S LAB DEBRIDEME 22750 FOLLMER, FOLLMER, NT SKIN 9 ANGY S ANGY S PARTIAL THICKNESS DEBRIDEME 28516 FOLLMER, FOLLMER, NT SKIN 9 ANGY S ANGY S PARTIAL THICKNESS DEBRIDEME 98916 FOLLMER, FOLLMER, NT SKIN 9 ANGY S ANGY S PARTIAL THICKNESS RADIOLOGI 23384 ASHA BARRY, C 9 ANGY S ANGY S EXAMINATI ON FOOT 2 VIEWS SBSQ 59173 CRIS LYNCH, NURSING 9 GABI Boateng FACIL CARE/DAY MINOR COMPLJ 15 MIN ORTHOPANT 80854 GA KARAN ESTRADA 8 FOR EDENILSON E ORAL&MAXI LLOFACIAL SURGERY IIV3 18476 CRIS LYNCH, VACCINE 8 GABI Boateng SPLIT VIRUS 0.5 ML DOSAGE IM USE ADMINISTR G0008 CRIS LYNCH, ATION OF 8 GABI Boateng INFLUENZA VIRUS VACCINE BASIC 83458 COMBINED COMBINED METABOLIC 8 PHYSICIAN PHYSICIAN PANEL S LAB S LAB CALCIUM TOTAL BLOOD 62430 COMBINED COMBINED COUNT 8 PHYSICIAN PHYSICIAN COMPLETE S LAB S LAB AUTO&AUTO DIFRNTL WBC COLLECTIO 00642 COMBINED COMBINED N VENOUS 8 PHYSICIAN PHYSICIAN BLOOD S LAB S LAB VENIPUNCT URE TRAVEL [address] MED 8 PHYSICIAN PHYSICIAN NEC LAB S LAB S LAB SPEC; PRORATD TRIP CHRG RADEX 37034 YOVANY YOVANY WRIST 8 [facility] COMPLETE INC INC MINIMUM 3 VIEWS GROUND A0425 [facility] PER SERVICE SERVICE STATUTE MILE AMBULANCE A0429 [facility] SERVICE 8 AMBULANCE AMBULANCE [facility] SERVICE SERVICE EMERGENCY TRANSPORT SBSQ 00630 CRIS LYNCH, NURSING 8 GABI Boateng FACIL CARE/DAY MINOR COMPLJ 15 MIN SBSQ 93269 CRIS LYNCH, NURSING 8 GABI Boateng FACIL CARE/DAY MINOR COMPLJ 15 MIN Encounters Encounter Start End Date Code Location Performer Type Date [facility] YOVANY - 7 7 [facility] IN[facility] AT [facility] EMERGENCY 09187 YOVANY 7 7 [facility] VISIT HIGH/URGE NT SEVERITY EMERGENCY 25069 [facility] DEPT 7 7 PHYSICIAN VISIT S, [facility] HIGH SEVERITY& THREAT [facility] EMERGENCY 78560 [facility] DEPT 7 7 PHYSICIAN VISIT S, [facility] HIGH [facility]VERITY& THREAT [facility] YOVANY - 7 7 [facility] 6 6 [facility] 69630 [facility] DEPT 6 6 PHYSICIAN BRITTANEY VISIT S, [facility] HIGH SEVERITY& THREAT [facility] YOVANY - 6 6 [facility] 42428 YOVANY 6 6 [facility] VISIT MODERATE SEVERITY OFFICE 57399 [facility] CONSULT 5 5 CLAUDINE BOWLES PHYSICIAN NEW/ESTAB S ASSIST PATIENT 60 MIN HOSPITAL YOVANY - 5 5 [facility] YOVANY - 5 5 [facility] YOVANY - 5 5 [facility] YOVANY - 4 4 [facility] YOVANY - 3 3 [facility] YOVANY - 2 2 [facility] COUNTS [facility]CLUDE 234 [facility] HOSPITAL YOVANY - 2 2 [facility] OUTPATIEN COUNTS [facility]CLUDE 234 [facility] AT [facility] HOSPITAL YOVANY - 2 2 [facility] OUTPATIEN COUNTS INCLUDE 234 [facility] AT [facility] HOSPITAL YOVANY - 2 2 [facility] 03843 ELYDI CHRISTOPHER DEPT 1 1 EMERGENCY III MAXIM VISIT SERVICES HIGH SEVERITY& THREAT [facility] YOVANY - 1 1 [facility] OUTPATIEN COUNTS INCLUDE 234 [facility] AT THE [facility] EMERGENCY 46508 YOVANY 1 1 [facility] T VISIT HIGH/URGE NT SEVERITY HOSPITAL YOVANY - 1 1 [facility] OUTPATIEN COUNTS INCLUDE 234 [facility] AT [facility] EMERGENCY 00447 LEYDI CHRISTOPHER DEPT 1 1 EMERGENCY III MAXIM VISIT SERVICES HIGH SEVERITY& THREAT FUN EMERGENCY 91419 [facility] T VISIT HIGH/URGE NT SEVERITY HOSPITAL UNIVERS[facility] - 1 1 [facility] - 1 1 [facility] T OFFICE 54098 [facility] 1 1 FOOT FOOT T 30 PROFESSIO PROFESSIO MINUTES NALS NAL EMERGENCY 66611 LEYDI HECTOR, 0 0 EMERGENCY [facility] SERVICES T VISIT HIGH/URGE ASSOCIATE NT S SEVERITY HOSPITAL YOVANY - 0 0 [facility] T EMERGENCY 18331 YOVANY 0 0 [facility] T VISIT LIMITED/M INOR PROB OFFICE 54421 [facility], OUTPATIEN 0 0 IMPLANT & ERIC R T NEW 20 ORAL MINUTES [facility] YOVANY - 0 0 [facility] T EMERGENCY 34273 LEYDI HECTOR, DEPT 0 0 EMERGENCY ALEX S VISIT SERVICES HIGH SEVERITY& ASSOCIATE THREAT S FUN EMERGENCY 68218 YOVANY 0 0 [facility] T VISIT HIGH/URGE NT SEVERITY EMERGENCY 21408 LEYDI HECTOR, DEPT 0 0 EMERGENCY ALEX S VISIT SERVICES HIGH SEVERITY& ASSOCIATE THREAT S FUN EMERGENCY 11839 [facility]ANY 0 0 [facility] T VISIT HIGH/URGE NT SEVERITY HOSPITAL YOVANY - 0 0 [facility] AT [facility] EMERGENCY 45945 LEYDI CHRISTOPHER DEPT 0 0 EMERGENCY III, VISIT SERVICES LUISANA HIGH SEVERITY& ASSOCIATE THREAT S [facility] EMERGENCY 54264 YOVANY 0 0 [facility] T VISIT MODERATE SEVERITY HOSPITAL YOVANY - 0 0 [facility] 234 [facility] AT THE [facility] HOSPITAL YOVANY - 0 0 [facility] 234 [facility]S AT THE [facility] EMERGENCY 58002 YOVANY 0 0 [facility] T VISIT HIGH/URGE NT SEVERITY EMERGENCY 05762 LEYDI HECTOR, DEPT 0 0 EMERGENCY ALEX S VISIT SERVICES HIGH SEVERITY& ASSOCIATE THREAT S [facility] OFFICE 61231 ASHA BARRY OUTPATIEN 0 0 ANGY S ANGY S T VISIT 10 MINUTES EMERGENCY [id number] [facility] T VISIT LOW/MODER SEVERITY HOSPITAL YOVANY - 9 9 [facility] 234 [facility] AT [facility] 33294 [facility] VISIT [facility]IGH SEVERITY& THREAT [facility] [address] [facility] [address] [facility], 9 9 [facility] EMERGENC[facility] T VISIT PHYS INC MODERATE SEVERITY EMERGENCY 23377 LEYDI HECTOR, DEPT 9 9 EMERGENCY ALEX S VISIT SERVICES HIGH SEVERITY& ASSOCIATE THREAT S [facility] YOVANY - 9 9 [facility] T EMERGENCY 45974 YOVANY 9 9 [facility] T VISIT HIGH/URGE NT SEVERITY OFFICE 83048 ASHA BARRY OUTPATIEN 9 9 ANGY S ANGY S T VISIT 10 MINUTES OFFICE [id number] ASHA BARRY OUTPATIEN 9 9 ANGY S ANGY S T VISIT 10 MINUTES OFFICE 43723 ASHA BARRY OUTPATIEN 9 9 ANGY S ANGY S T NEW 30 MINUTES OFFICE 92734 GA JUSTIN ESTRADA 8 8 FOR EDENILSON Guerrier T NEW 10 ORAL&MAXI MINUTES LLOFACIAL SURGERY EMERGENCY 95856 YOVANY 8 8 [facility] T VISIT MODERATE SEVERITY HOSPITAL YOVANY - 8 8 [facility] T
[2017-06-08] MEDS ORDERED: SIMETHICONE PO (23:04)
[2017-06-08] MEDS ORDERED: LACTULOSE10 GM/15 M PO (23:06)
[2017-06-08] MEDS ORDERED: NITROGLYCERIN0.4 MG SL (23:08)
[2017-06-08] MEDS ORDERED: PROAIR HFA0.09 MG/AC IH (23:09)
[2017-06-08] MEDS ORDERED: PROCHLORPERAZIN10 MG PO (23:10)
[2017-06-08] MEDS ORDERED: LIPITOR10 MG PO (23:12)
--- OUTSIDE RECORDS SUMMARY | 2017-06-08 23:13 | External Medical Summary Rpt ---
Author Author , TRACEY WEBB Address Unknown Phone [email or web address] Team Providers Care Ethylbenzene Converter Helper Name Role Phone ALFARIS MOH, ALFARIS Unavailable Unavailable MOH GABI LYNCH, Unavailable Unavailable GABI LYNCHINELIS ERUM, BEINEKE Unavailable Unavailable ERUM BESSON, BESSON Unavailable Unavailable BESSON LYDIA, BESSON Unavailable Unavailable LYDIA BESSON LYDIA, BESSON Unavailable Unavailable LYDIA BESSON, ADRIAN A, Unavailable Unavailable BESSON, ADRIAN A MURILLO, MURILLO Unavailable Unavailable MURILLO ALL, MURILLO ALL Unavailable Unavailable BRAUDIS JAM, BRAUDIS Unavailable Unavailable JAM BRAUDIS JAM, BRAUDIS Unavailable Unavailable JAM [facility] Unavailable Unavailable SERVICE, [facility] Unavailable Unavailable SERVICE, [facility], [facility] Unavailable Unavailable [facility] Unavailable Unavailable [...] Unavailable ANGY FOLLMER, ANGY S, Unavailable Unavailable FOLLMER, ANGY S ELSA, EDENILSON E, HUNTER, Unavailable Unavailable TAWNY HORTON Unavailable Unavailable ANIRUDH ALEX HECTOR, Unavailable Unavailable ALEX HECTOR [facility] Unavailable Unavailable INC, [facility] Unavailable [facility]available HOSPITAL P, [facility] HOSPITAL P [facility], Unavailable Unavailable [facility] DMITRIY TREVIZO, Unavailable Unavailable DMITRIY TREVIZO [facility] Unavailable Unavailable [facility], [facility] MANDY REGGIE, MANDY Unavailable Unavailable REGGIE [facility] Unavailable Unavailable [facility], [facility] Unavailable Unavailable [facility], [facility] Unavailable Unavailable IMAGING ASS, [facility] Unavailable Un[facility], [facility] JR JR DWI, JR Unavailable Unavailable JR DWI JR JR DWI, JR Unavailable Unavailable JR DWI JR, SHIRA E, Unavailable Unavailable JR, SHIRA E [facility] Unavailable Unavailable 11, [facility] 11 [facility] Unavailable Unavailable ACTION, [facility] Unavailable Unavailable SERVICES, [facility] MCKEMIE JR MAXIM, Unavailable Unavailable MCKEMIE JR MAXIM HERNANDEZMIE MAXIM, Unavailable Unavailable CHRISTIANOE MAXIM HANY DANIEL LUISANA Unavailable Unavailable F, LUISANA LEACH JR, DONALD R, Unavailable Unavailable [facility] Unavailable Unavailable LLC, MED [...] [facility] CASTILL[facility], Unavailable Unavailable CASTILLO [facility], Unavailable Unavailable [facility] Unavailable Unavailable [facility] Unavailable Unavailable ASSIST, [facility], Unavailable Unavailable [facility] WEHRMAN III MAXIM, Unavailable Unavailable WEHRMAN III MAXIM WEHRMAN III MAXIM, Unavailable Unavailable [facility] III LUISANA HILARIO III, Unavailable Unavailable LUISANA CHRISTOPHER III, WISE JAM Unavailable Unavailable Purpose Continuity of Care Document - 12-15-2007 through 2016 Problems Code Diagnosis DOS Provider Status D649 ANEMIA 03-12-2017 [facility]PECIFIED [facility]ICIANS LA I10 ESSENTIAL 03-12-2017 [facility] HYPERTENSIO LA N I498 OTHER 02-22-2017 [facility] SPECIFIED AMBULANCE CARDIAC SERVICE ARRHYTHMIAS J9811 ATELECTASIS 02-22-2017 [facility] K219 GASTRO-ESOP 02-22-2017 [facility] P WITHOUT ESOPHAGITIS R0789 OTHER CHEST 02-22-2017 [facility] R079 CHEST PAIN 02-22-2017 [facility] [place] I208 OTHER FORMS 01-21-2017 [facility] R0602 SHORTNESS 01-21-2017 [facility] R069 UNSPECIFIED 01-21-2017 [facility] ABNORMALITI GROUP ES OF BREATHING R251 TREMOR 01-17-2017 [facility]NSPEC[facility]IED [facility]C R4182 ALTERED 01-17-2017 [facility] MENTAL AMBULANCE STATUS SERVICE UNSPECIFIED I209 ANGINA 01-13-2017 [facility] UNSPECIFIED INC R0600 DYSPNEA 01-13-2017 [facility] Z720 TOBACCO USE 01-13-2017 [facility] INC [id number] OTHER LONG 01-08-2017 [facility] P DRUG THERAPY X77320 PAIN IN 07-23-2016 [facility] RIGHT FOOT MOBILE DIAGNOSTIC SE E876 HYPOKALEMIA 07-05-2016 [facility] K209 ESOPHAGITIS 07-05-2016 [facility] UNSPECIFIED INC K5900 CONSTIPATIO 07-05-2016 [facility] N PHYSICIANS, UNSPECIFIED PLL N200 CALCULUS OF 07-05-2016 [facility] R1084 GENERALIZED 07-05-2016 [facility] [place] ABDOMINAL [facility] PAIN [facility] ASS R1110 VOMITING 07-05-2016 [facility] [place] UNSPEC[facility]IED [facility] R112 NAUSEA WITH 07-05-2016 [facility]OM[facility] PHYSICIANS, UNSPECIFIED PLL B351 TINEA 05-28-2016 BRAUDIS JAM UNGUIUM D67935 UNS 05-28-2016 BRAUDIS JAM ATHEROSCLER BILL [employer] ART EXTREM BILATERAL LEGS B83680 PAIN IN 05-28-2016 BRAUDIS JAM RIGHT TOES D74420 PAIN IN 05-28-2016 BRAUDIS JAM LEFT TOES J189 PNEUMONIA 05-01-2016 [facility] [place] UNSPECIFIED [facility]ICAL ORGANISM IMAGING ASS J984 OTHER 05-01-2016 [facility] [place] DISORDERS MEDICAL OF LUNG IMAGING ASS K210 GASTRO-ESOP 05-01-2016 [facility] P DISEASE W/ ESOPHAGITIS R05 COUGH 05-01-2016 [facility] R1010 UPPER 05-01-2016 [facility]BDOM[facility]AL [facility] PAIN SERVICE UNSPECIFIED R109 UNSPECIFIED 10-24-2015 [facility] ABDOMINAL PHYSICIANS PAIN ASSIST R69 ILLNESS 10-24-2015 [facility] UNSPECIFIED TRANSPORTAT ION SER 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 NON-STEROID ASSIST AL&ANTI-INF LAMMATORIES J219 ACUTE 10-09-2015 [facility] IS INC UNSPECIFIED J441 CHRONIC 10-09-2015 [facility] OBSTRUCTIVE [facility] PULMONARY INC DZ W/EXACERBAT ION E119 TYPE 2 08-22-2015 EXPRESS DIABETES MOBILE MELLITUS DIAGNOSTIC WITHOUT SE COMPLICATIO NS Z07019 PAIN IN 08-22-2015 [facility] [place] LEFT HIP [facility]ICAL [facility] ASS V95044 PAIN IN 08-22-2015 [facility] [place] LEFT KNEE MEDICAL IM[facility]ING ASS A64824 PAIN IN 08-22-2015 [facility] [place] LEFT THIGH MEDICAL IM[facility]ING ASS K26460P UNSPECIFIED 08-22-2015 EXPRESS INJURY MOBILE LEFT HIP DIAGNOSTIC INITIAL SE ENCOUNTER L851 ACQ 08-21-2015 BRAUDIS JAM KERATOSIS KERATODERMA PALMARIS ET PLANTARIS 34832 ABDOMINAL 05-30-2015 [facility] [place] PAIN, MEDICAL EPIGASTRIC IMAGING ASS 58949 OTHER 05-21-2015 [facility] [place] DYSPNEA AND MEDICAL [place]AG[place] [address] CHEST PAIN 05-21-2015 [facility] [place] UNSPECIFIED [facility]ICAL IMAGING ASS 32362 05-21-2015 [facility] TRANSPORTAT ION SER 5180 PULMONARY 05-07-2015 [facility] [place] COLLAPSE [facility] 4019 UNSPECIFIED 04-06-2015 [facility] P N 40848 DIVERTICULO 03-25-2015 [place] [place] SIS OF MEDICAL COLON IMAGING ASS 1101 DERMATOPHYT 11-27-2014 BRAUDIS JAM OSIS OF NAIL 32197 ATHEROSCLER 11-27-2014 BRAUDIS JAM OSIS BILL [employer] ART EXTREMITIES UNSPEC 7011 ACQUIRED 11-27-2014 BRATANESHAS TIFFANIE KERATODERMA 7295 PAIN IN 11-27-2014 BRAUDIS JAM SOFT TISSUES OF LIMB 7862 COUGH 08-16-2014 [facility] 14310 NONSPEC 08-09-2014 [facility] REACT MOBILE TUBERCULIN DIAGNOSTIC SKIN TEST SE W/O ACTIVE TB 515 POSTINFLAMM 06-05-2014 [facility] MEDICAL PULMONARY IMAGING ASS FIBROSIS 7851 PALPITATION 06-05-2014 [facility] [place] S [facility] 496 CHRONIC 05-27-2014 [facility] [place] AIRWAY MEDICAL OBSTRUCTION IMAGING ASS NEC 6101 DIFFUSE 05-03-2014 [facility] CYSTIC N EMERGENCY MASTOPATHY PHYS 74509 MASTODYNIA 05-03-2014 JR JR DWI 4928 OTHER 04-25-2014 [facility] EMPHYSEMA [facility] 7866 SWELLING, 04-25-2014 [facility] [place] LUMP IN INC CHEST 81246 OTHER 04-25-2014 [facility] [place] NONSPECIFIC MEDICAL ABNORMAL IMAGING ASS FINDING OF LUNG FIELD 2768 HYPOPOTASSE 04-05-2014 WEHRMAN III PEG MAXIM 40693 TRANSIENT 02-17-2014 [facility] FLA VISUAL LOSS 60646 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 35433 PSYCHOPHYSI 02-16-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 LYDIA MANSI VISUAL DISTURBANCE S 35364 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-16-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 LYDIA CEREBRAL ARTERY OCCLUSION W/INFARCT 49162 OSTEOARTHRO 09-02-2013 PETTEY JAM SIS UNSPEC WHETHER GEN/LOC LOWER LEG 91133 PAIN IN 09-02-2013 [facility] JOINT, [facility] LOWER LEG INC 4660 ACUTE 10-22-2012 JR JR BRONCHITIS DWI 490 BRONCHITIS 10-22-2012 LISETTE MAXIM NOT SPECIFIED ACUTE OR CHRONIC 7802 SYNCOPE AND 08-04-2012 [facility] [place] COLLAPSE [facility] 13470 OTHER CHEST 08-03-2012 [facility] LYDIA PAIN 2749 GOUT, 06-25-2012 [facility] LYDIA UNSPECIFIED 83909 SHORTNESS 06-25-2012 [facility] LYDIA OF BREATH 4111 INTERMEDIAT 05-28-2012 [facility] PAN E CORONARY SYNDROME 4139 OTHER AND 05-28-2012 [facility] DANIEL UNSPECIFIED MAXIM [place] 33904 OTHER 05-28-2012 [place] [place] DISEASES OF MEDICAL LUNG NOT IMAGING ASS ELSEWHERE CLASSIFIED 5990 URINARY 03-12-2011 [facility] TRACT [facility]YSIC[facility]ANS INFECTION LA SITE NOT SPECIFIED 74626 OTHER 03-12-2011 [facility] ABNORMAL PHYSICIANS GLUCOSE LA 9597 INJURY 03-12-2011 COM[facility]ED OTHER&UNSPE PHYSICIANS CIFIED KNEE LA LEG ANKLE&FOOT 5589 OTH&UNSPEC 02-05-2011 [facility] NONINFECTIO [facility] US INC GASTROENTER ITIS&COLITI S 08648 OTHER 02-05-2011 [facility] MALAISE AND AMBULANCE FATIGUE SERVICE 19476 NAUSEA WITH 02-05-2011 [facility] 30285 DIARRHEA 02-05-2011 [facility] V5869 LONG-TERM 02-05-2011 [facility] (CURRENT) [facility] USE OF INC OTHER MEDICATIONS 700 CORNS AND 01-27-2011 [facility] 8930 OPEN WOUND 01-06-2011 [facility] MENTION COMPLICATIO N 7350 HALLUX 12-16-2010 [facility] FOUNDAT[facility] 7354 OTHER 12-16-2010 [place] [facility] [place] [facility] PROF[place] 8931 OPEN WOUND 12-16-2010 [facility] [address] HEAD 04-03-2010 [facility] INJURY, AMBULANCE UNSPECIFIED SERVICE 920 CONTUSION 04-02-2010 [facility] FACE EMERGENCY SCALP AND SERVICES [facility] EYE E8889 UNSPECIFIED 04-02-2010 [facility] 5210 DENTAL 03-04-2010 [facility] 7245 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-15-2010 [facility] BACKACHE AMBULANCE SERVICE 01971 ABDOMINAL 01-31-2010 [facility] PAIN, MEDICAL UNSPECIFIED IMAGING SITE ASSOCIATES 43996 ABDOMINAL 01-31-2010 [facility] PAIN, AMBULANCE GENERALIZED SERVICE 96340 ULCER OF 01-30-2010 FO[facility] ANGY OTHER PART OF FOOT 14239 UNSPECIFIED 01-26-2010 [facility] PERIPHERAL [facility] VERTIGO SERVICES [facility] 7804 DIZZINESS 01-26-2010 [facility] [facility] GIDDINESS IMAGING [facility]OC[facility] 7840 HEADACHE 01-26-2010 [facility] AMBULANCE SERVICE 4619 ACUTE 12-02-2009 [facility] SINUSITIS, [facility] PROF SERV 65204 POISONING 09-21-2009 [facility] N EMERGENCY AND RELATED PHYS INC NARCOTICS OTHER V0481 NEED 09-17-2009 [facility] PROPHYLACTI GABI Guzmán VACCINATION &INOCULATIO N FLU 79091 HEMATURIA 07-27-2009 [facility] UNSPECIFIED AMBULANCE SERVICE 86204 ABDOMINAL 07-27-2009 [facility] PAIN OTHER EMERGENCY SPECIFIED SERVICES SITE ASSOCIATES 35933 PAIN IN 04-19-2009 BRITTNEY, JOINT, [facility] ANKLE AND FOOT 6829 CELLULITIS 02-23-2009 CRIS, AND ABSCESS GABI Boateng OF UNSPECIFIED SITE 5253 RETAINED 10-18-2008 [facility] DENTAL [facility]MAXILL OFACIAL SURGERY 52700 PAIN IN 07-15-2008 [facility] JOINT, AMBULANCE FOREARM SERVICE 53070 SPRAIN AND 07-15-2008 [place] STR[facility] OF MEDICAL UNSPECIFIED IMAGING SITE OF ASSOCIATES WRIST E8497 PLACE OF 07-15-2008 [facility] MEDICAL RESIDENTIAL IMAGING ASSOCIATES INSTITUTION E927 OVEREXERTIO 07-15-2008 [place] N&STRENUOUS MEDICAL &REPETITIVE IMAGING ASSOCIATES MVMNTS/LOAD S 98540 OSTEOARTHRO 06-23-2008 [facility] INVLV MX GABI W SITES BUT NOT SPEC GEN Medications Na ND Rx Da Fi Fi Am Da Di Ph RX Ph St me C No te ll ll ou ys ag ar # ys at rm s nt no ma ic us Or Da si cy ia de te s n re d LO 00 07 07 42 14 00 ME Ac RA 60 -0 -2 .0 00 D ti ZE 34 3- 8- 00 14 CA ve PA 24 20 20 50 RE M 73 17 17 62 1 2 26 PH MG AR MA TA CY BL ET GA 65 07 07 42 14 00 ME Ac BA 86 -0 -2 .0 00 D ti PE 20 3- 8- 00 14 CA ve NT 19 20 20 51 RE IN 80 17 17 86 1 68 PH 10 AR 0 MA MG CY CA PS UL E BE 00 07 07 60 30 00 [...] 0 MA MG CY TA BL ET PO [...] 80 7- 8- 00 14 CA ve NM 01 20 20 53 RE AM 00 [...] PS UL E LO 00 06 07 30 30 00 ME Ac RA 78 -0 -0 .0 00 D ti TA 15 5- 7- 00 14 CA ve DI 07 20 20 32 RE NE 70 17 17 96 1 11 PH 10 AR MA MG CY TA BL ET NM 59 06 07 28 7 00 ME [...] 80 8- 7- 00 14 CA ve NM 01 20 20 35 RE AM 00 [...] D CY DR 40 MG TA B AT 60 05 06 30 30 00 [...] MG CY TA BL ET BU 00 06 06 60 30 00 ME Ac SP 09 -0 -2 .0 00 D ti IR 30 3- 3- 00 14 CA ve ON 05 20 20 31 RE E 40 17 17 30 HC 1 33 PH L AR 10 MA CY MG TA BL ET BA 00 05 06 [...] TA BL ET LO 00 05 06 30 30 00 ME Ac RA 78 -0 -0 .0 00 D ti TA 15 8- 2- 00 14 CA ve DI 07 20 20 16 RE NE 70 17 17 68 1 78 PH 10 AR MA MG CY TA BL ET TR 00 05 06 [...] D CY DR 40 MG TA B OL 60 05 06 30 30 00 [...] 20 2- 2- 00 14 CA ve NM 00 20 20 18 RE AM 60 [...] AR MA TA CY BL ET 00 05 05 30 30 00 ME Ac PI 53 -0 -2 .0 00 D ti RI 61 2- 6- 00 14 CA ve N 00 20 20 12 RE EC 44 17 17 46 1 47 PH 81 AR MA MG CY TA BL ET AT 60 05 05 30 [...] 5- 6- 00 14 CA ve ON 03 28 20 14 RE E 40 17 17 77 HC 1 13 PH L AR 10 MA CY MG TA BL ET BA 00 04 05 [...] 6- 5- 00 14 CA ve ON 03 28 20 00 RE E 40 17 17 [...] 20 4- 5- 00 14 CA ve NM 00 20 20 04 RE AM 60 [...] 20 7- 7- 00 13 CA ve NM 00 20 20 90 RE AM 60 [...] .0 00 D ti MT 11 4- 7- 00 13 CA ve ER 00 [...] 10 MA CY MG TA BL ET BE 00 03 03 [...] MA MG CY CA PS UL E BA 00 02 03 60 30 00 [...] AR MA MG CY TA BL ET LO 00 02 03 42 14 00 [...] PH AR TA MA BL CY ET TR 00 02 03 30 30 [...] D CY DR 40 MG TA B BU 00 02 03 60 30 00 ME Ac SP 09 -0 -1 .0 00 D ti IR 30 7- 0- 00 13 CA ve ON 05 20 20 70 RE E 40 17 17 85 HC 5 54 PH L AR 10 MA CY MG TA BL ET LO 00 02 03 42 14 00 ME Ac RA 60 -0 -1 .0 00 D ti ZE 34 8- 0- 00 13 CA ve PA 24 20 20 71 RE M 73 17 17 46 1 2 41 PH MG AR MA TA CY BL ET AL 00 02 03 60 [...] 20 7- 0- 00 13 CA ve NM 00 20 20 76 RE AM 60 [...] ML LL C SO JARON TI ON 00 01 02 30 30 00 ME [...] 80 0- 7- 00 13 CA ve NM 01 20 20 62 RE AM 00 [...] LL ME C Q TA BL ET LO 00 01 02 42 14 00 ME Ac RA 60 -2 -1 .0 00 D ti ZE 34 6- 7- 00 13 CA ve PA 24 20 20 65 RE M 73 17 17 43 1 2 11 PH MG AR MA TA CY BL ET LL C BU 00 01 02 60 30 00 [...] 40 C MG TA B TR 00 11 10 30 30 00 ME Ac IA 78 -1 -0 .0 00 D ti MT 11 4- 3- 00 13 CA ve ER 00 20 20 59 RE EN 80 17 17 51 E- 5 05 PH HC AR TZ MA CY 75 -5 LL 0 C MG TA B BE 00 01 01 60 30 00 ME Ac NZ 60 [...] CY CA LL PS C UL E LO 00 11 09 30 30 00 ME Ac RA 78 -0 -2 .0 00 D ti TA 15 3- 7- 00 13 CA ve DI 07 20 20 54 RE NE 70 17 17 48 1 92 PH 10 AR MA MG CY TA LL BL C ET OL 60 11 09 30 30 00 ME Ac AN 50 [...] 80 1- 3- 00 13 CA ve NM 01 20 20 47 RE AM 00 [...] -0 .0 00 D ti MT 11 6- 9- 00 13 CA ve ER 00 20 20 45 RE EN 80 16 17 37 E- 5 49 PH HC AR TZ MA CY 75 -5 LL 0 C MG TA B PA 00 12 01 30 30 00 ME Ac NT 09 -1 -0 .0 00 D ti OP 30 6- 9- 00 13 CA ve RA 01 20 20 45 RE ZO 29 16 17 37 LE 8 66 PH AR SO MA D CY DR LL 40 C MG TA B LO 00 12 01 42 14 00 ME Ac RA 60 -1 -0 .0 00 D ti ZE 34 6- 9- 00 13 CA ve PA 24 20 [...] .0 D 41 HR ti ON 20 8- 8- 00 CA 09 MA ve AT [...] CH AR AR MA D CY W C TH 00 03 03 3 30 [...] CY W LL C 00 02 02 00 20 3 ME [...] W TA LL BL C ET 00 10 01 03 30 30 ME [...] 00 1. 1 ME 36 AR Ac NM 78 -1 -0 00 D 71 NO [...] Procedures Procedure DOS Code Location Performer Comment BASIC 42610 COM[facility]ED COMBINED METABOLIC 7 PHYSICIAN PHYSICIAN PANEL S LA S LA CALCIUM TOTAL COLLECTIO 94311 COMBINED COMBINED N VENOUS 7 PHYSICIAN PHYSICIAN BLOOD S LA S LA VENIPUNCT URE TRAVEL [address] MED 7 PHYSICIAN PHYSICIAN NEC LAB S LA S LA SPEC; [place] [address] [facility] PEDROZA TROPONIN 7 [facility] [address] [facility] MCGRAWON TROPONIN 7 [facility] QUANTITAT INC INC SALONI RADIOLOGI 58752 [facility] C 7 PHYSICIAN EXAMINATI S, PLLC ON CHEST SINGLE VIEW FRONTAL BLOOD 07536 [facility] P[facility] COUNT 7 [facility] COMPLETE INC INC AUTO&AUTO DIFRNTL WBC RADIOLOGI 36813 [facility] C EXAM 7 MEDICAL MEDICAL CHEST 2 IMAGING IMAGING VIEWS ASS ASS FRONTAL&L ATERAL ECG 85544 [facility] ECHEVARRIA ROUTINE 7 [facility] W/LEAST P 12 LDS I&R ONLY CREATINE 50388 [facility] MARIANO KINASE MB 7 [facility] FRACTION INC ONLY AMB A0427 [facility] SERVICE 7 AMBULANCE AMBULANCE ALS SERVICE SERVICE EMERGENCY TRANSPORT LEVEL [address] [place] [address] [facility] PEDROZA AMYLASE 7 [facility] INC INC COMPREHEN 68932 [facility] LAST SIVE 7 [facility] METABOLIC INC PANEL ECG 06746 [facility] PEDROZA ROUTINE 7 [facility] ECG INC INC W/LEAST 12 LDS TRCG ONLY W/O I&R CREATINE 86929 [facility] PEREYRA KINASE 7 [place] [address] [facility] PEDROZA LIPASE 7 [facility] H[facility] INC INC GROUND A0425 [facility] 7 AMBULANCE AMBULANCE PER SERVICE SERVICE STATUTE MILE CV STRS 96003 [facility] COOK TST 7 PHYSICIAN XERS&/OR S GROUP RX CONT ECG W/O I&R MYOCARDIA 63968 [facility] SRIVASTAV L SPECT 7 PHYSICIAN A MULTIPLE S GROUP STUDIES AMB A0427 [facility] SERVICE 7 AMBULANCE AMBULANCE ALS SERVICE SERVICE EMERGENCY TRANSPORT LEVEL 1 ECG 95058 [facility] ROUTINE 7 PHYSICIAN ECG S, PLLC W/LEAST 12 LDS I&R ONLY GROUND [id number] [place] [address] 7 AMBULANCE AMBULANCE PER SERVICE SERVICE STATUTE MILE ECG 86730 [facility] PEDROZA ROUTINE 7 [facility] ECG INC INC W/LEAST 12 LDS TRCG ONLY W/O I&R AMB A0427 [facility] SERVICE 7 AMBULANCE AMBULANCE ALS SERVICE SERVICE EMERGENCY TRANSPORT LEVEL 1 GROUND A0425 [facility] 7 AMBULANCE AMBULANCE PER SERVICE SERVICE STATUTE MILE ECG 80957 [facility] ECHEVARRIA ROUTINE 7 [facility] W/LEAST P 12 LDS I&R ONLY CT THORAX 38625 [facility] 7 MEDICAL W/CONTRAS IMAGING T ASS MATERIAL RADIOLOGI 68530 [facility] C 7 MEDICAL EXAMINATI IMAGING ON CHEST ASS SINGLE VIEW FRONTAL BASIC 43964 COMBINED COMBINED METABOLIC 7 PHYSICIAN PHYSICIAN PANEL S LA S LA CALCIUM TOTAL COLLECTIO 97204 COMBINED COMBINED N VENOUS 7 PHYSICIAN PHYSICIAN BLOOD S LA S LA VENIPUNCT URE TRAVEL [address] MED 7 PHYSICIAN PHYSICIAN NEC LAB S LA S LA SPEC; PRORATD TRIP CHRG TRAVEL [address] MED 6 PHYSICIAN PHYSICIAN NEC LAB S LA S LA SPEC; PRORATD TRIP CHRG COMPREHEN 28102 COMBINED COMBINED SIVE 6 PHYSICIAN PHYSICIAN METABOLIC S LA S LA PANEL COLLECTIO 27314 COMBINED COMBINED N VENOUS 6 PHYSICIAN PHYSICIAN BLOOD S LA S LA VENIPUNCT URE BLOOD 64429 COMBINED COMBINED COUNT 6 PHYSICIAN PHYSICIAN COMPLETE S LA S LA AUTO&AUTO DIFRNTL WBC BLOOD 11206 COMBINED COMBINED COUNT 6 PHYSICIAN PHYSICIAN COMPLETE S LA S LA AUTO&AUTO DIFRNTL WBC COLLECTIO 10060 COMBINED COMBINED N VENOUS 6 PHYSICIAN PHYSICIAN BLOOD S LA S LA VENIPUNCT URE COMPREHEN 41348 COMBINED COMBINED SIVE 6 PHYSICIAN PHYSICIAN METABOLIC S LA S LA PANEL TRAVEL [address] MED 6 PHYSICIAN PHYSICIAN NEC LAB S LA S LA SPEC; PRORATD TRIP CHRG ECG 91331 [facility] NORRIS JR ROUTINE 6 [facility] W/LEAST P 12 LDS I&R ONLY CT THORAX 17087 [facility] [place] CH[facility] ALL 6 MEDICAL W/CONTRAS IMAGING T ASS MATERIAL RADIOLOGI 44375 [facility] 6 MEDICAL MEDICAL EXAMINATI IMAGING IMAGING ON CHEST ASS ASS SINGLE VIEW FRONTAL GROUND A0425 [facility] 6 AMBULANCE AMBULANCE PER SERVICE SERVICE STATUTE MILE AMB A0427 [facility] SERVICE 6 AMBULANCE AMBULANCE ALS SERVICE SERVICE EMERGENCY TRANSPORT LEVEL 1 SET-UP Q0092 [facility] PORTABLE 6 MOBILE MOBILE X-RAY DIAGNOSTI DIAGNOSTI EQUIPMENT C SE C SE TRANS R0070 [facility] PRTBL 6 MOBILE MOBILE X-RAY DIAGNOSTI DIAGNOSTI EQP&PERS C SE C SE GINETTE/NRS GINETTE-TRIP 1 PT RADEX 75874 [facility] FOOT 6 MOBILE MOBILE COMPLETE DIAGNOSTI DIAGNOSTI MINIMUM 3 C SE C SE VIEWS CULTURE 51233 [facility] BACTERIAL 6 [facility] INC INC QUANTTATI VE COLONY COUNT URINE CULTURE 01445 [facility] BCT 6 [facility] ISOL&PRSM INC INC PTV ID ISOLATE EA URINE SUSCEPTIB 51055 [facility] LTY STDY 6 [facility] ANTIMICRB INC INC IAL MICRO/[place] [address] [facility] INFUSION 6 [facility] THER INC INC PROPH ADDL SEQUENTIA L TO 1 HR URNLS DIP 12932 [facility] STICK/TAB INC [place] [address] [facility] INFUSION 6 [facility] THERAPY/P INC INC ROPHYLAXI S /DX 1ST TO 1 HR THERAPEUT 89256 [facility] IC 6 [facility] INJECTION INC INC IV PUSH EACH NEW DRUG COMPREHEN 90056 [facility] SIVE 6 [facility] METABOLIC INC INC PANEL ECG 04257 [facility] ROUTINE 6 [facility] ECG INC INC W/LEAST 12 LDS TRCG ONLY W/O I&R 12-LEAD 3120F KENA RENUSC ECG 6 PHYSICIAN [place] PERFOR[place], [place] [address] [place] ALL ABDOMEN & 6 MEDICAL PELVIS IMAGING W/[place] [address] [facility] LIPASE 6 [facility] INC INC BLOOD 74524 [facility] COUNT 6 [facility] COMPLETE INC INC AUTO&AUTO DIFRNTL WBC PATIENT G8784 KENA RENUSCH NOT 6 PHYSICIAN BRITTANEY Liz, [facility] PT REFUSES URGENT/[place] [address] [facility] TROPONIN 6 [facility] QUANTITAT INC INC SALONI RADIOLOGI 25032 [facility] C 6 [facility] EXAMINATI INC INC ON CHEST [place] FRONTAL ECG 38080 [facility] NORRIS JR ROUTINE 6 [facility] W/LEAST P 12 LDS I&R ONLY GROUND A0425 [facility] MILEAGE 6 AMBULANCE AMBULANCE PER SERVICE SERVICE STATUTE MILE AMBULANCE A0429 [facility] SERVICE 6 [facility]ANCE AMBULANCE BLS SERVICE SERVICE EMERGENCY TRANSPORT BASIC 07036 COMBINED COMBINED METABOLIC 6 PHYSICIAN PHYSICIAN PANEL S LA S LA CALCIUM TOTAL COLLECTIO 99294 COMBINED COMBINED N VENOUS 6 PHYSICIAN PHYSICIAN BLOOD S LA S LA VENIPUNCT URE TRAVEL [address] MED 6 PHYSICIAN PHYSICIAN NEC LAB S LA S LA SPEC; PRORATD TRIP CHRG DEBRIDEME 87868 NOEMI FRANKLIN NT NAIL 6 JAM JAM ANY METHOD 6/> PARING/CU 48573 NOEMI FRANKLIN TTING 6 JAM JAM BENIGN HYPERKERA TOTIC LESION 2-4 BLOOD 50462 [facility] OCCULT 6 [facility] PEROXIDAS INC INC E ACTV QUAL FECES 1-[address] [facility] SERVICE 6 AMBULANCE AMBULANCE ALS SERVICE SERVICE EMERGENCY TRANSPORT [place] [address] [place] [address] [facility] AMYLASE 6 [facility] INC INC CREATINE 89871 [facility] KINASE MB 6 [facility] FRACTION INC INC ONLY COMPREHEN 58290 [facility] P[facility] SIVE 6 [facility] METABOLIC INC INC PANEL ECG 93776 [facility] ROUTINE 6 [facility] ECG INC INC W/LEAST 12 LDS TRCG ONLY W/O I&R [place] [address] Y[facility] PEDROAZ LIPASE 6 [facility] INC INC CREATINE 86350 YOVANY PEDROZA KINASE 6 [facility] [place] [address] YOVANY YOVANY TROPONIN 6 [facility] QUANTITAT INC INC SALONI BLOOD 67472 YOVANY PEDROZA COUNT 6 [facility] COMPLETE INC INC AUTO&AUTO DIFRNTL WBC ECG 34560 YOVANY ECHEVARRIA ROUTINE [address] [facility] W/LEAST P 12 LDS I&R ONLY RADIOLOGI 26437 [place] C EXAM 6 MEDICAL ABDIRAHMAN CHEST 2 IMAGING VIEWS ASS FRONTAL&L ATERAL GROUND A0425 [facility] MILEAGE 6 AMBULANCE AMBULANCE PER SERVICE SERVICE STATUTE MILE BASIC 80047 COMBINED COMBINED METABOLIC 6 PHYSICIAN PHYSICIAN PANEL S LA S LA CALCIUM TOTAL COLLECTIO 46663 COMBINED COMBINED N VENOUS 6 PHYSICIAN PHYSICIAN BLOOD S LA S LA VENIPUNCT URE BLOOD 82452 COMBINED COMBINED COUNT 6 PHYSICIAN PHYSICIAN COMPLETE S LA S LA AUTO&AUTO DIFRNTL WBC TRAVEL [address] MED 6 PHYSICIAN PHYSICIAN NEC LAB S LA S LA SPEC; PRORATD TRIP CHRG PARING/CU 92789 BRAUDIS BRAUDIS TTING 6 JAM JAM BENIGN HYPERKERA TOTIC LESION 2-4 TRIMMING 66690 BRAUDIS BRAUDIS NONDYSTRO 6 JAM JAM PHIC NAILS ANY NUMBER DEBRIDEME 18352 BRAUDIS BRAUDIS NT NAIL 6 JAM JAM ANY METHOD 1-5 PARING/CU 54950 BRAUDIS BRAUDIS TTING 5 JAM JAM BENIGN HYPERKERA TOTIC LESION 2-4 DEBRIDEME 49284 BRAUDIS BRAUDIS NT NAIL 5 JAM JAM ANY METHOD 6/> NONEMERG A0120 FEDERATED FEDERATED TRNSPRT: 5 [facility]I-BUS TRANSPORT TRANSPORT MTN ATION SER ATION SER AREA/OTH SYS RADIOLOGI 05153 YOVANY PEDROZA C EXAM 5 [facility] CHEST 2 INC INC VIEWS FRONTAL&L ATERAL RADIOLOGI 29629 EXPRESS EXPRESS C 5 MOBILE MOBILE EXAMINATI DIAGNOSTI DIAGNOSTI ON FEMUR C SE C SE [address] PELVIS 64620 [place] ALL W/O 5 MEDICAL CONTRAST IMAGING MATERIAL ASS RADIOLOGI 23897 [place] C 5 MEDICAL ABDIRAHMAN EXAMINATI IMAGING ON KNEE ASS 1/2 VIEWS RADEX HIP 37229 [place] 5 MEDICAL ABDIRAHMAN UNILATERA IMAGING L ASS COMPLETE MINIMUM 2 VIEWS PARING/CU 47596 NOEMI ULRICHS TTING 5 JAM JAM BENIGN HYPERKERA TOTIC LESION 2-4 DEBRIDEME 27932 NOEMI ULRICHS NT NAIL 5 JAM JAM ANY METHOD 1-5 [place] [address] [place] ALL ABDOMEN & 5 MEDICAL PELVIS IMAGING W/O ASS CONTRAST MATERIAL CV STRS 36168 YOVANY NORRIS TST 5 [facility] XERS&/OR HOSPITAL RX CONT P ECG I&R ONLY CV STRS 64987 [facility] TST 5 PHYSICIAN XERS&/OR S GROUP RX CONT ECG W/O I&R NONEMERG A0120 FEDERATED FEDERATED TRNSPRT: 5 MINI-BUS TRANSPORT TRANSPORT [facility]N [facility] AREA/OTH SYS MYOCARDIA 93829 [place] L SPECT 5 MEDICAL ABDIRAHMAN MULTIPLE IMAGING STUDIES ASS NONEMERG A0120 FEDERATED FEDERATED TRNSPRT: 5 [facility]I-BUS TRANSPORT [facility] RADIOLOGI 18928 [facility] 5 MEDICAL ERUM EXAMINATI IMAGING ON CHEST ASS SINGLE VIEW FRONTAL RADIOLOGI 58981 YOVANY PEDROZA C 5 [facility] EXAMINATI INC INC ON CHEST SINGLE VIEW FRONTAL ECG 25525 YOVANY ECHEVARRIA ROUTINE [address] [facility] W/LEAST P 12 LDS I&R ONLY RADIOLOGI 99085 [facility] 5 MEDICAL ERUM EXAMINATI IMAGING [place] [address] [facility] ABDOMEN & 5 MEDICAL ERUM PELVIS IMAGING W/O ASS CONTRAST MATERIAL PARING/CU 95012 NOEMI ULRICHS TTING 5 JAM JAM BENIGN HYPERKERA TOTIC LESION 2-4 RADIOLOGI 40235 [facility] EXAM 4 MEDICAL ERUM CHEST 2 IMAGING VIEWS ASS FRONTAL&L ATERAL RADIOLOGI 47989 [facility] C EXAM 4 MOBILE MOBILE CHEST 2 DIAGNOSTI DIAGNOSTI VIEWS C SE C SE FRONTAL&L ATERAL NONEMERG A0120 FEDERATED FEDERATED TRNSPRT: 4 TRANS MINI-BUS TRANSPORT [facility] AREA/OTH SYS ECG 27884 ALFARIS ALFARIS ROUTINE 4 MOH MOH ECG W/LEAST 12 LDS I&R ONLY RADIOLOGI 11177 [facility] C 4 MEDICAL ERUM EXAMINATI IMAGING ON CHEST ASS SINGLE VIEW FRONTAL RADIOLOGI 35885 [facility] 4 MEDICAL ABDIRAHMAN EXAMINATI IMAGING ON CHEST ASS SINGLE VIEW FRONTAL NONEMERG A0120 FEDERATED FEDERATED TRNSPRT: 4 TRANS MINI-BUS TRANSPORT SERVBLUEG [facility] AREA/OTH SYS RADIOLOGI 99775 [facility] 4 MEDICAL ABDIRAHMAN EXAMINATI IMAGING ON CHEST ASS SINGLE VIEW FRONTAL ECG 00561 JR NORRIS JR ROUTINE 4 DWI DWI ECG W/LEAST 12 LDS I&R ONLY CT THORAX 96242 [facility] W/O 4 MEDICAL ABDIRAHMAN CONTRAST IMAGING MATERIAL ASS NONEMERG A0120 FEDERATED FEDERATED TRNSPRT: 4 TRANS MINI-BUS TRANSPORT [facility]BLUEG [facility] AREA/OTH SYS RADIOLOGI 61641 [facility] 4 MEDICAL ABDIRAHMAN EXAMINATI IMAGING ON CHEST ASS SINGLE VIEW FRONTAL ECG 33367 ASHWIN CHRISTOPHER ROUTINE 4 III MAXIM III MAXIM ECG W/LEAST 12 LDS I&R ONLY NONEMERG A0120 FEDERATED FEDERATED TRNSPRT: 4 MINI-BUS TRANSPORT TRANSPORT MTN [facility] AREA/OTH SYS NONEMERG A0120 FEDERATED FEDERATED TRNSPRT: 4 MINI-BUS TRANSPORT TRANSPORT [facility] AREA/[place] [address] RASLAU RASLAU ANGIOGRAP 4 FLA FLA HY NECK W/CONTRAS T/[place] [address] RASLAU RASLAU ANGIOGRAP 4 FLA FLA HY HEAD W/CONTRAS T/NONCONT RAST CRITICAL 80522 CHIQUITA LYDIA [facility]IQUITA LYDIA CARE 4 ILL/INJUR ED PATIENT INIT 30-74 MIN PARING/CU 11410 NOEMI ULRICHS TTING 4 JAM JAM BENIGN HYPERKERA TOTIC LESION 2-4 DEBRIDEME 62910 NOEMI ULRICHS NT NAIL 4 JAM JAM ANY METHOD 6/> ARTHROCEN 72980 PETTEY PETTEY TESIS 3 JAM JAM ASPIR&/IN J MAJOR JT/BURSA W/O US RADIOLOGI 52071 [facility] BRITTNEY C EXAM 3 ABDIRAHMAN ABDIRAHMAN KNEE COMPLETE 4/MORE VIEWS INJ J0702 PETTEY PETTEY BETAMETHA 3 JAM JAM SONE ACETATE & PHOSPHATE 3 MG NONEMERG A0120 LKLP CAC LKLP CAC TRNSPRT: 3 INC INC MINI-BUS REGION 11 REGION 11 MTN AREA/OTH SYS NONEMERG A0120 LKLP CAC LKLP CAC TRNSPRT: 3 INC INC MINI-BUS REGION 11 REGION 11 MTN AREA/OTH SYS ECG 59692 YOVANY PEDROZA ROUTINE 2 [facility] ECG INC INC W/LEAST 12 LDS TRCG ONLY W/O I&R ECG 79321 LISETTE KNOX ROUTINE 2 MAXIM MAXIM ECG W/LEAST 12 LDS I&R ONLY RADIOLOGI 38808 YOVANY PEDROZA C 2 [facility] EXAMINATI INC [place] [address] [place] HEAD/BRAI 2 MEDICAL ABDIRAHMAN N W/[place] [address] [place] MAXILLOFA 2 MEDICAL ABDIRAHMAN CIAL W/O IMAGING CONTRAST ASS MATERIAL OBSERVATI 28392 SWATHI ECHEVARRIA ON CARE 2 LYDIA LYDIA DISCHARGE MANAGEMEN T RADIOLOGI 27460 [place] [facility] C EXAM 2 MEDICAL ABDIRAHMAN CHEST 2 IMAGING VIEWS ASS FRONTAL&L ATERAL ECG 70183 LEYDI HOLLEY ROUTINE 2 EMERGENCY EMERGENCY ECG SERVICES SERVICES W/LEAST 12 LDS I&R ONLY ECG 07142 JR NORRIS JR ROUTINE 2 DWI DWI ECG W/LEAST 12 LDS I&R ONLY XTRNL ECG 86360 YOVANY PEDROZA & 48 HR 2 [facility] RECORDING INC INC XTRNL ECG 24735 ETIENNEKEMIE MCKEMIE 2 JR MAXIM JR MAXIM CONTINUOU S RHYTHM W/I&R UP TO 48 HRS EXTERNAL 97635 YOVANY PEDROZA ECG 2 [facility] SCANNING INC INC ANALYSIS REPORT RADIOLOGI 57663 YOVANY PEDROZA C 2 [facility] EXAMINATI INC INC ON CHEST SINGLE VIEW FRONTAL ECG 66239 YOVANY PEDROZA ROUTINE 2 [facility] ECG INC INC W/LEAST 12 LDS TRCG ONLY W/O I&R ECG 60293 TAWNY HECTOR ROUTINE 2 ANIRUDH ANIRUDH ECG W/LEAST 12 LDS I&R ONLY MYOCARDIA 19829 FALLUJI COLBYUMARYBEL L SPECT 2 DENISE DENISE MULTIPLE STUDIES MYOCARDIA 54602 YOVANY PEDROZA L SPECT 2 [facility] MULTIPLE INC INC STUDIES NONEMERG A0120 LKLP LKLP TRNSPRT: 2 COMMUNITY COMMUNITY MINI-BUS ACTION ACTION MSN AREA/OTH SYS CV STRS 84617 JEROMY PINZON [facility] TST 2 XERS&/OR RX CONT ECG W/O I&R CV STRS 16266 YOVANY PEDROZA TST 2 [facility] XERS&/OR INC INC RX CONT ECG TRCG ONLY CV STRS 20265 JR NORRIS JR TST 2 DWI DWI XERS&/OR RX CONT ECG I&R ONLY ECG 76978 SWATHI ECHEVARRIA ROUTINE 2 LYDIA LYDIA ECG W/LEAST 12 LDS I&R ONLY ECG 89799 TAWNY HECTOR ROUTINE 2 ANIRUDH ANIRUDH ECG W/LEAST 12 LDS I&R ONLY NONEMERG A0120 LKLP LK TRNSPRT: 2 COMMUNITY COMMUNITY MINI-BUS ACTION ACTION MTN AREA/OTH SYS ECG 93717 LISETTE KNOX ROUTINE 2 MAXIM MAXIM ECG W/LEAST 12 LDS I&R ONLY RADIOLOGI 26536 [facility] C 2 MEDICAL ABDIRAHMAN EXAMINATI IMAGING ON CHEST ASS SINGLE VIEW FRONTAL PARING/CU 97949 BRAUDIS BRAUDIS TTING 2 JAM JAM BENIGN HYPERKERA TOTIC LESION 2-4 TRIMMING 31017 BRAUDIS BRAUDIS NONDYSTRO 2 JAM JAM PHIC NAILS ANY NUMBER PARING/CU 93620 BRAUDIS BRAUDIS TTING 2 JAM JAM BENIGN HYPERKERA TOTIC LESION 2-4 TRIMMING 23232 BRAUDIS BRAUDIS NONDYSTRO 2 JAM [place] [address] YOVANY PEDROZA TROPONIN 1 [facility] QUANTITAT INC INC SALONI RADIOLOGI 46430 [place] C 1 MEDICAL ABDIRAHMAN EXAMINATI IMAGING ON CHEST ASS SINGLE VIEW FRONTAL BLOOD 66213 YOVANY PEDROZA COUNT 1 [facility] COMPLETE INC INC AUTO&AUTO DIFRNTL WBC ECG 06991 LEYDI CHRISTOPHER ROUTINE 1 EMERGENCY III MAXIM ECG SERVICES W/LEAST 12 LDS I&R ONLY CREATINE 06220 YOVANY PEDROZA KINASE 1 [facility] TOTAL INC INC ECG 02239 YOVANY PEDROZA ROUTINE 1 [facility] ECG INC INC W/LEAST 12 LDS TRCG ONLY W/O I&R COMPREHEN 14521 YOVANY PEDROZA SIVE 1 [facility] METABOLIC INC INC PANEL CREATINE 23158 YOVANY PEDROZA KINASE MB 1 [facility] FRACTION INC INC ONLY URNLS DIP 65224 COMBINED COMBINED 1 PHYSICIAN PHYSICIAN STICK/TAB S LA S LA LET REAGENT AUTO MICROSCOP Y COMPREHEN 84654 YOVANY PEDROZA SIVE 1 [facility] METABOLIC INC INC PANEL AMB A0427 [facility] SERVICE 1 AMBULANCE AMBULANCE ALS SERVICE SERVICE EMERGENCY TRANSPORT LEVEL 1 PRESSURIZ 73069 YOVANY YOVANY ED/NONPRE 1 [facility] SSURIZED [place] [address] YOVANY PEDROZA INFUSION 1 [facility] THERAPY/P INC INC ROPHYLAXI S /DX 1ST TO 1 HR THERAPEUT 56441 YOVANY PEDROZA IC 1 [facility] INJECTION INC INC IV PUSH EACH NEW DRUG BLOOD 91864 YOVANY PEDROZA COUNT 1 [facility] COMPLETE INC INC AUTO&AUTO DIFRNTL WBC RADIOLOGI 23760 [facility] 1 MEDICAL ABDIRAHMAN EXAMINATI IMAGING ON CHEST ASS SINGLE VIEW FRONTAL GROUND A0425 [facility] AM[facility]ULANCE AMBULANCE PER SERVICE SERVICE STATUTE MILE DEBRIDEME 09245 [facility] OPEN 1 Y Y WOUND 20 [facility] SQ CM/< NONEMERGE A0100 [facility] CAB NCY 1 COMMUNITY TRANSPORT ACTION ATION; TAXI DEBRIDEME 67703 [facility] OPEN 1 Y Y WOUND 20 [facility] SQ CM/< DEBRIDEME 07972 [facility] OPEN 1 FOOT FOOT WOUND 20 PROFESSIO PROFESSIO SQ CM/< NALS NALS RADEX 90810 [place] [facility] J[facility] FOOT 1 MEDICAL COMPLETE SERV MINIMUM 3 FOUNDATIO VIEWS NONEMERGE A0100 [facility] NCY 1 COMMUNITY TRANSPORT ACTION ATION; TAXI URNLS DIP 12477 COMBINED COMBINED 1 PHYSICIAN PHYSICIAN STICK/TAB S LA S LA LET REAGENT AUTO MICROSCOP Y NONEMERGE A0100 [facility] CAB NCY 0 COMMUNITY TRANSPORT ACTION ATION; TAXI URNLS DIP 44028 COMBINED COMBINED 0 PHYSICIAN PHYSICIAN STICK/TAB S LA S LA LET REAGENT AUTO MICROSCOP Y URNLS DIP 81061 COMBINED COMBINED 0 PHYSICIAN PHYSICIAN STICK/TAB S LA S LA LET REAGENT AUTO MICROSCOP Y CULTURE 20542 COMBINED COMBINED BACTERIAL 0 PHYSICIAN PHYSICIAN S LA S LA QUANTTATI VE COLONY COUNT URINE GROUND A0425 [facility] MILEAGE 0 AMBULANCE AMBULANCE PER SERVICE SERVICE STATUTE MILE AMBULANCE A0429 [facility] SERVICE 0 AMBULANCE AMBULANCE BLS SERVICE SERVICE EMERGENCY TRANSPORT ORTHOPANT 80329 THE LETA, OGRAM 0 IMPLANT & ERIC R ORAL SURGERY [facility] ECG 40913 YOVANY NORRIS, ROUTINE 0 [facility] W/LEAST PROF SERV 12 LDS I&R ONLY ECG 05149 YOVANY PEDROZA ROUTINE 0 [facility] ECG INC INC W/LEAST 12 LDS TRCG ONLY W/O I&R ECG 82371 YOVANY PEDROZA ROUTINE 0 [facility] ECG INC INC W/LEAST 12 LDS TRCG ONLY W/O I&R URNLS DIP 39989 YOVANY PEDROZA 0 [facility] STICK/TAB INC INC LET REAGENT AUTO MICROSCOP Y ECG 26095 YOVANY NORRIS, ROUTINE 0 [facility] W/LEAST PROF SERV 12 LDS I&R ONLY CREATINE 05127 YOVANY PEDROZA KINASE 0 [facility] TOTAL INC INC CREATINE 59265 YOVANY PEDROZA KINASE MB 0 [facility] FRACTION INC INC ONLY BLOOD 18605 YOVANY PEDROZA COUNT 0 [facility] COMPLETE INC INC AUTO&[place] [address] YOVANY PEDROZA TROPONIN 0 [facility] QUANTITAT INC INC SALONI BASIC 40116 YOVANY PEDROZA METABOLIC 0 [facility] PANEL INC INC CALCIUM TOTAL AMBULANCE A0429 [facility] SERVICE 0 AMBULANCE AMBULANCE BLS SERVICE SERVICE EMERGENCY TRANSPORT GROUND A0425 [facility] MILEAGE 0 AMBULANCE AMBULANCE PER SERVICE SERVICE STATUTE MILE GROUND A0425 [facility] MILEAGE 0 AMBULANCE AMBULANCE PER SERVICE SERVICE STATUTE MILE AMBULANCE A0429 [facility] SERVICE 0 AMBULANCE AMBULANCE BLS SERVICE SERVICE EMERGENCY TRANSPORT ECG 28797 YOVANY LEACH ROUTINE 0 [facility] LUISANA F W/LEAST PROF SERV 12 LDS I&R ONLY RADEX ABD 78031 DOYLE LUGO, COMPL 0 MEDICAL HAYLEY AQT ABD IMAGING W/S/E/D ASSOCIATE VIEWS 1 [place] [address] YOVANY PEDROZA TROPONIN 0 [facility] QUANTITAT INC INC SALONI BLOOD 76412 YOVANY PEDROZA COUNT 0 [facility] COMPLETE INC INC AUTO&AUTO DIFRNTL WBC CREATINE 95055 YOVANY PEDROZA KINASE MB 0 [facility] [place] [address] YOVANY PEDROZA AMYLASE 0 [place] [address] YOVANY PEDROZA LIPASE 0 [facility] INC INC URNLS DIP 53198 YOVANY PEDROZA 0 [facility] STICK/TAB INC INC LET REAGENT AUTO MICROSCOP Y ECG 59417 YOVANY PEDROZA ROUTINE 0 [facility] ECG INC INC W/LEAST 12 LDS TRCG ONLY W/O I&R CREATINE 29476 YOVANY PEDROZA KINASE 0 [facility] TOTAL INC INC COMPREHEN 57747 YOVANY PEDROZA SIVE 0 [facility] METABOLIC INC INC PANEL DEBRIDEME 46698 ASHA BARRY NT SKIN [address] [place] [address] [place], HEAD/BRAI 0 MEDICAL GABRIELLA P N W/O IMAGING CONTRAST ASSOCIATE MATERIAL S 3D 70770 [facility], RENDERING 0 MEDICAL GABRIELLA P W/INTERP IMAGING & ASSOCIATE POSTPROCE S SS SUPERVISI ON AMB A0427 [facility] SERVICE 0 AMBULANCE AMBULANCE ALS SERVICE SERVICE EMERGENCY TRANSPORT LEVEL [address] [facility] MILEAGE 0 AMBULANCE AMBULANCE PER SERVICE SERVICE STATUTE MILE TRAVEL [address] MED 0 PHYSICIAN PHYSICIAN NEC LAB S LAB S LAB SPEC; PRORATD TRIP CHRG BLOOD 80761 COMBINED COMBINED COUNT 0 PHYSICIAN PHYSICIAN COMPLETE S LAB S LAB AUTO&AUTO DIFRNTL WBC COLLECTIO 35593 COMBINED COMBINED N VENOUS 0 PHYSICIAN PHYSICIAN BLOOD S LAB S LAB VENIPUNCT URE DEBRIDEME 00163 ASHA BARRY NT SKIN 0 [place] [address] YOVANY PEDROZA INFUSION 0 [facility] THERAPY/P INC INC ROPHYLAXI S /DX 1ST TO 1 HR THERAPEUT 98471 YOVANY PEDROZA IC 0 [facility] INJECTION INC INC IV PUSH EACH NEW DRUG AMB A0427 [facility] SERVICE 0 AMBULANCE AMBULANCE ALS SERVICE SERVICE EMERGENCY TRANSPORT LEVEL 1 CREATINE 57526 YOVANY PEDROZA KINASE MB 0 [facility] FRACTION INC INC ONLY GROUND A0425 [facility] MILEAGE 0 AMBULANCE AMBULANCE PER SERVICE SERVICE STATUTE MILE 3D 71576 DOYLE CARTAGENA, RENDERING 0 MEDICAL GABRIELLA P W/INTERP IMAGING & ASSOCIATE POSTPROCE S SS SUPERVISI ON HEPATIC 70993 YOVANY PEDROZA FUNCTION 0 [facility] PANEL INC INC ECG 61306 YOVANY PEDROZA ROUTINE 0 [facility] ECG INC INC W/LEAST 12 LDS TRCG ONLY W/O I&R CREATINE 40591 YOVANY PEDROZA KINASE 0 [facility] TOTAL INC INC ECG 14161 LEYDI HECTOR, ROUTINE 0 EMERGENCY ALEX S ECG SERVICES W/LEAST 12 LDS ASSOCIATE I&R ONLY S BASIC 97204 YOVANY PEDROZA METABOLIC 0 [facility] PANEL INC INC CALCIUM TOTAL BLOOD 98058 YOVANY PEDROZA COUNT 0 [facility] COMPLETE INC INC AUTO&[place] [address] [facility] CARTAGENA, HEAD/BRAI 0 MEDICAL GABRIELLA P N W/O IMAGING [place] [address] YOVANY PEDROZA TROPONIN 0 [facility] QUANTITAT INC INC SALONI DUP-SCAN 48154 YOVANY PEDROZA XTR VEINS 9 [facility] INC INC UNILATERA L/LIMITED STUDY GROUND A0425 [facility] MILEAGE 9 AMBULANCE AMBULANCE PER SERVICE SERVICE STATUTE MILE AMBULANCE A0429 [facility] SERVICE 9 AMBULANCE AMBULANCE BLS SERVICE SERVICE EMERGENCY TRANSPORT AMBULANCE A0429 JESSAMINE JESSAMINE SERVICE 9 CO CO BLS AMBULANCE AMBULANCE EMERGENCY TRANSPORT GROUND A0425 JESSAM[facility] JESSAMINE MILEAGE 9 CO CO PER AMBULANCE AMBULANCE STATUTE MILE ECG 89469 [facility] ROUTINE 9 [facility] ECG W/LEAST 12 LDS TRCG ONLY W/O I&R ECG 10841 [facility], ROUTINE 9 RADHA DMITRIY G ECG EMERGENCY W/LEAST PHYS INC 12 LDS I&R ONLY IIV3 10953 CRIS LYNCH, VACCINE 9 GABI Boateng GABI Boateng SPLIT VIRUS 0.5 ML DOSAGE IM USE ADMINISTR G0008 CRIS LYN[facility], ATION OF 9 GABI W GABI Boateng INFLUENZA VIRUS VACCINE URNLS DIP 82020 YOVANY YOVANY 9 [facility] STICK/TAB INC INC LET REAGENT AUTO MICROSCOP Y GROUND A0425 [facility] AMBULANCE AMBULANCE [place] [address] [place] O[place], ABDOMEN 9 MEDICAL GABRIELLA P W/O IMAGING CONTRAST ASSOCIATE MATERIAL S BASIC 48053 YOVANY PEDROZA METABOLIC 9 [facility] PANEL INC INC CALCIUM TOTAL 3D 00096 YOVANY PEDROZA RENDERING 9 [facility] INC INC W/INTERP& POSTPROC DIFF WORK STATION CT PELVIS 13133 [place] O[place], W/O 9 MEDICAL GABRIELLA P CONTRAST IMAGING MATERIAL ASSOCIATE S BLOOD 78004 YOVANY PEDROZA COUNT 9 [facility] COMPLETE INC INC AUTO&AUTO DIFRNTL WBC AMBULANCE A0429 [facility] SERVICE 9 AMBULANCE AMBULANCE BLS SERVICE SERVICE EMERGENCY TRANSPORT RADIOLOGI 84260 [facility] C 9 [email or web address] EXAMINATI ON KNEE 3 VIEWS TRANS R0075 [facility] PRTBL 9 [email or web address] XRAY EQP&PERS GINETTE/NRS GINETTE-TRIP> 1 PT SET-UP Q0092 [facility] PORTABLE 9 [email or web address] X-RAY EQUIPMENT URNLS DIP 49717 COMBINED COMBINED 9 PHYSICIAN PHYSICIAN STICK/TAB S LAB S LAB LET REAGENT AUTO MICROSCOP Y DEBRIDEME 62652 ASHA, ASHA, NT SKIN 9 ANGY S ANGY S PARTIAL THICKNESS MRI LOWER 40643 BRITTNEYBRITTNEY, EXTREM 9 HAYLEY HAYLEY OTH/THN JT W/O & W/CONTR MATR COLLECTIO 87585 COMBINED COMBINED N VENOUS 9 PHYSICIAN PHYSICIAN BLOOD S [place] [address] COMBINED COMBINED UREA 9 PHYSICIAN PHYSICIAN NITROGEN S LAB S LAB QUANTITAT SALONI CREATININ 72095 COMBINED COMBINED E BLOOD 9 PHYSICIAN PHYSICIAN S LAB S LAB TRAVEL [address] MED 9 PHYSICIAN PHYSICIAN NEC LAB S LAB S LAB SPEC; PRORATD TRIP CHRG DEBRIDEME 18264 FOLLMER, FOLLMER, NT SKIN 9 ANGY S ANGY S PARTIAL THICKNESS DEBRIDEME 30675 FOLLMER, FOLLMER, NT SKIN 9 ANGY S ANGY S PARTIAL THICKNESS DEBRIDEME 73535 FOLLMER, FOLLMER, NT SKIN 9 ANGY S ANGY S PARTIAL THICKNESS RADIOLOGI 65369 ASHA BARRY, C 9 ANGY S ANGY S EXAMINATI ON FOOT 2 VIEWS SBSQ 25077 CRIS LYNCH, NURSING 9 GABI Boateng FACIL CARE/DAY MINOR COMPLJ 15 MIN ORTHOPANT 95603 PA KARAN ESTRADA 8 FOR EDENILSON E ORAL&MAXI LLOFACIAL SURGERY IIV3 67709 CRIS LYNCH, VACCINE 8 GABI Boateng SPLIT VIRUS 0.5 ML DOSAGE IM USE ADMINISTR G0008 CRIS LYNCH, ATION OF 8 GABI Boateng INFLUENZA VIRUS VACCINE TRAVEL [address] MED 8 PHYSICIAN PHYSICIAN NEC LAB S LAB S LAB SPEC; PRORATD TRIP CHRG BASIC 17004 COMBINED COMBINED METABOLIC 8 PHYSICIAN PHYSICIAN PANEL S LAB S LAB CALCIUM TOTAL COLLECTIO 52859 COMBINED COMBINED N VENOUS 8 PHYSICIAN PHYSICIAN BLOOD S LAB S LAB VENIPUNCT URE BLOOD 87379 COMBINED COMBINED COUNT 8 PHYSICIAN PHYSICIAN COMPLETE S LAB S LAB AUTO&AUTO DIFRNTL WBC GROUND A0425 [facility] MILEAGE 8 AMBULANCE AMBULANCE PER SERVICE SERVICE STATUTE MILE RADEX 41561 YOV[facility] PEDROZA WRIST 8 [facility] COMPLETE INC INC MINIMUM [id number] [facility] SERVICE 8 AMBULANCE AMBULANCE BLS SERVICE SERVICE EMERGENCY TRANSPORT SBSQ 08-15-200 [id number] CRIS LYNCH, NURSING 8 GABI Boateng FACIL CARE/DAY MINOR COMPLJ 15 MIN SBSQ 21395 CRIS LYNCH, NURSING 8 GABI Boateng FACIL CARE/DAY MINOR COMPLJ 15 MIN Encounters Encounter Start End Date Code Location Performer Type Date EMERGENCY 13602 YOVANY 7 7 [facility] VISIT HIGH/URGE NT SEVERITY EMERGENCY 22395 [facility] DEPT 7 7 PHYSICIAN VISIT S, [facility] HIGH SEVERITY& THREAT [facility] YOVANY - 7 7 [facility] 43090 [facility] DEPT 7 7 PHYSICIAN [facility]ISIT S, [facility] HIGH SEVERITY& THREAT [facility] YOVANY - 7 7 [facility] 16669 [facility] DEPT 6 6 PHYSICIAN BRITTANEY VISIT S[facility] HIGH SEVERITY& THREAT [facility] YOVANY - 6 6 [facility] YOVANY - 6 6 [facility] 79980 YOVANY 6 6 [facility] VISIT MODERATE SEVERITY OFFICE 57990 [facility] CONSULT 5 5 CLAUDINE BOWLES PHYSICIAN NEW/ESTAB S ASSIST PATIENT 60 [facility] Y[facility] - 5 5 [facility] - 5 5 [facility] YOVANY - 5 5 [facility] YOVANY - 4 4 [facility] YOVANY - 3 3 [facility] YOVANY - 2 2 [facility] YOVANY - 2 2 [facility] YOVANY - 2 2 [facility] YOVANY - 1 [facility] 03555 LEYDI CHRISTOPHER DEPT 1 1 EMERGENCY III MAXIM VISIT SERVICES HIGH SEVERITY& THREAT FUNCJ EMERGENCY 22319 YOVANY 1 1 [facility] T VISIT HIGH/URGE NT SEVERITY EMERGENCY 46485 LEYDI CHRISTOPHER DEPT 1 1 EMERGENCY III MAXIM VISIT SERVICES HIGH SEVERITY& THREAT FUNCJ EMERGENCY 13424 YOVANY 1 1 [facility] T VISIT HIGH/URGE NT SEVERITY HOSPITAL YOVANY - 1 1 [facility] 1 1 Y [facility] UNIV[facility] - 1 1 Y [facility] T OFFICE 69727 [facility] 1 1 FOOT FOOT T 30 PROFESSIO PROFESSIO MINUTES [facility] YOVANY - 0 0 [facility] OUTPATIEN [facility] 84320 LEYDI HECTOR, 0 0 EMERGENCY [facility] DEPARTMEN SERVICES T VISIT HIGH/URGE ASSOCIATE NT S SEVERITY EMERGENCY 90506 YOVANY 0 0 [facility] T VISIT LIMITED/M INOR PROB OFFICE 43197 [facility], OUTPATIEN 0 0 IMPLANT & ERIC R T NEW 20 ORAL MINUTES [facility] YOVANY - 0 0 [facility] OUTPATIEN [facility] T EMERGENCY 02487 YOVANY 0 0 [facility] DEPARTMEN INC T VISIT HIGH/URGE NT SEVERITY EMERGENCY 62762 LEYDI HECTOR, DEPT 0 0 EMERGENCY ALEX S VISIT SERVICES HIGH SEVERITY& ASSOCIATE THREAT S [facility] EMERGENCY 26260 LEYDI HECTOR, DEPT 0 0 EMERGENCY ALEX S VISIT SERVICES HIGH SEVERITY& ASSOCIATE THREAT S [facility] YOVANY - 0 0 [facility] OUTPATIEN INC T EMERGENCY 99616 YOVANY 0 0 [facility] DEPARTMEN INC T VISIT HIGH/URGE NT SEVERITY HOSPITAL Y[facility] - 0 0 [facility] OUTPATIEN INC T EMERGENCY 55028 LEYDI CHRISTOPHER DEPT 0 0 EMERGENCY III, VISIT SERVICES LUISANA HIGH SEVERITY& ASSOCIATE THREAT S [facility] EMERGENCY 73321 Y[facility]ANY 0 0 [facility] DEPARTMEN INC T VISIT MODERATE SEVERITY [facility] - [facility] 0 [facility] OUT[facility] T EMERGENCY [id number] LEYDI HECTOR, DEPT 0 0 EMERGENCY ALEX S VISIT SERVICES HIGH SEVERITY& ASSOCIATE THREAT S [facility] EMERGENCY 07777 YOVANY 0 0 [facility] DEPARTMEN INC T VISIT HIGH/URGE NT SEVERITY OFFICE [id number] ASHA BARRY, OUTPATIEN 0 0 ANGY S ANGY S T VISIT 10 MINUTES EMERGENCY 18291 [facility] 9 9 [facility] DEPART[facility] INC T VISIT LOW/MODER SEVERITY [facility] [place] - 9 9 [id number] V[facility] HIGH SEVERITY& THREAT [facility] - 9 [facility] T [facility]ERGENC[facility] [id number] [facility], 9 9 [facility] [place] [facility] T VISIT [facility] INC MODERATE SEVERITY EMERGENCY [id number] LEYDI HECTOR, DEPT 9 9 EMERGENCY ALEX S VISIT SERVICES HIGH SEVERITY& ASSOCIATE THREAT S [facility] EMERGENCY 99877 YOVANY 9 9 [facility] DEPARTMEN INC T VISIT HIGH/URGE NT SEVERITY [facility] - 9 9 [facility] OUTPATIEN INC T OFFICE [id number] ASHA BARRY OUTPATIEN 9 9 ANGY S ANGY S T VISIT 10 MINUTES OFFICE 88411 ASHA BARRY OUTPATIEN 9 9 ANGY S ANGY S T VISIT 10 MINUTES OFFICE 86786 ASHA BARRY OUTPATIEN 9 9 ANGY S ANGY S T NEW 30 MINUTES OFFICE [id number] PA JUSTIN ESTRADA 8 8 FOR EDENILSON E T NEW 10 ORAL&MAXI MINUTES LLOFACIAL SURGERY [facility] Y[facility] - 8 8 [facility] OUTPATIEN INC T EMERGENCY 19729 YOVANY 8 8 [facility] DEPARTMEN INC T VISIT MODERATE SEVERITY
--- OUTSIDE RECORDS SUMMARY | 2017-06-08 23:13 | External Medical Summary Rpt ---
Author Author , TRACEY WEBB Address Unknown Phone [email or web address] Care Team Providers Care Autos Disassembler Name Role Phone ALFARIS MOH, ALFARIS Unavailable [...] Unavailable [facility] Unavailable Unavailable SERVICE, [facility] Unavailable Unavailable SERVICE, [facility], [facility] Unavailable Unavailable [facility] Unavailable [...] ANIRUDH ALEX HECTOR, Unavailable Unavailable ALEX HECTOR [facility] Unavailable Unavailable INC, [facility] Unavailable Unavailable HOSPITAL P, [facility]ITAL P [facility], Unavailable Unavailable [facility] DMITRIY TREVIZO, Unavailable Unavailable DMITRIY TREVIZO [facility] Unavailable Unavailable [facility], [facility] MANDY REGGIE, MANDY Unavailable Unavailable REGGIE [facility] Unavailable Unavailable [facility], [facility] Unavailable Unavailable [facility], [facility] Unavailable Unavailable IMAGING [facility], [facility] Un[facility] Un[facility], [facility] JR JR DWI, JR Unavailable Unavailable JR DWI JR JR DWI, JR Unavailable Unavailable JR DWI JR, SHIRA E, Unavailable Unavailable JR, SHIRA E [facility] Unavailable Unavailable 11, [facility] 11 [facility] Unavailable Unavailable ACTION, [facility] Unavailable Unavailable SERVICES, [facility] MCKEMIE JR MAXIM, Unavailable Unavailable [...] [facility] CASTILLO, Unavailable Unavailable CASTILLO [facility], Unavailable Unavailable [facility] SHALA [facility]ST Unavailable Unavailable [facility] Unavailable Unavailable ASSIST, [facility], Unavailable Unavailable [facility] WEHRMAN III MAXIM, Unavailable Unavailable WE[facility] III MAXIM WE[facility] III MAXIM, Unavailable Unavailable WE[facility] III LUISANA HILARIO III, Unavailable Unavailable LUISANA CHRISTOPHER III, WISE JAM Unavailable Unavailable Purpose Continuity of Care Document - 12-15-2007 through 2016 Problems Code Diagnosis DOS Provider Status D649 ANEMIA 03-12-2017 [facility] UNSPECIFIED PHYSICIANS LA I10 ESSENTIAL 03-12-2017 [facility] PRIMARY [facility] HYPERTENSIO LA N I498 OTHER 02-22-2017 [facility] SPECIFIED AMBULANCE CARDIAC SERVICE ARRHYTHMIAS J9811 ATELECTASIS 02-22-2017 [facility] K219 GASTRO-ESOP 02-22-2017 [facility] P WITHOUT ESOPHAGITIS R0789 OTHER CHEST 02-22-2017 [facility] R079 CHEST PAIN 02-22-2017 [facility] I208 OTHER FORMS 01-21-2017 [facility] PECT[facility]IS GROUP R0602 SHORTNESS 01-21-2017 [facility] OF BREATH PHYSICIANS GROUP R069 UNSPECIFIED 01-21-2017 [facility]ANS ABNORMALITI GROUP ES OF BREATHING R251 TREMOR 01-17-2017 [facility] UNSPECIFIED [facility]IANS, PLLC R4182 ALTERED 01-17-2017 [facility] MENTAL AMBULANCE STATUS SERVICE UNSPECIFIED I209 ANGINA 01-13-2017 [facility] UNSPECIFIED INC R0600 DYSPNEA 01-13-2017 [facility] INC Z720 TOBACCO USE 01-13-2017 [facility] INC V94893 OTHER LONG 01-08-2017 [facility] P DRUG THERAPY F09862 PAIN IN 07-23-2016 [facility] RIGHT FOOT MOBILE DIAGNOSTIC SE E876 HYPOKALEMIA 07-05-2016 [facility] K209 ESOPHAGITIS 07-05-2016 [facility] UNSPECIFIED INC K5900 CONSTIPATIO 07-05-2016 [facility] N PHYSICIANS, UNSPECIFIED PLL N200 CALCULUS OF 07-05-2016 [facility] R1084 GENERALIZED 07-05-2016 [facility] R1110 VOMITING 07-05-2016 [facility] R112 NAUSEA WITH 07-05-2016 [facility] VOMITING PHYSICIANS, UNSPECIFIED PLL B351 TINEA 05-28-2016 B[facility]IS JAM UNGUIUM K03331 UNS 05-28-2016 [facility]IS JAM ATHEROSCLER NIKOLAI ART EXTREM BILATERAL LEGS A44753 PAIN IN 05-28-2016 B[facility]IS JAM RIGHT TOES J27763 PAIN IN 05-28-2016 [facility] JAM LEFT TOES J189 PNEUMONIA 05-01-2016 [facility] UNSPECIFIED [facility] ORGANISM IMAGING ASS J984 OTHER 05-01-2016 [place] DISORDERS MEDICAL OF LUNG IMAGING ASS K210 GASTRO-ESOP 05-01-2016 [facility] P DISEASE W/ ESOPHAGITIS R05 COUGH 05-01-2016 [facility] R1010 UPPER 05-01-2016 [facility] PAIN SERVICE UNSPECIFIED R109 UNSPECIFIED 10-24-2015 [facility] ABDOMINAL PHYSICIANS PAIN ASSIST R69 ILLNESS 10-24-2015 [facility] UNSPECIFIED TRANSPORTAT ION SER Z791 BET TAKER 10-24-2015 [facility] CURR PHYSICIANS NON-STEROID ASSIST AL&ANTI-INF LAMMATORIES J219 ACUTE 10-09-2015 [facility]IT [facility] IS INC UNSPECIFIED J441 CHRONIC 10-09-2015 [facility] OBSTRUCTIVE [facility] PULMONARY INC DZ W/EXACERBAT ION E119 TYPE 2 08-22-2015 [facility] DIABETES MOBILE MELLITUS DIAGNOSTIC WITHOUT SE COMPLICATIO NS D68687 PAIN IN 08-22-2015 [facility] LEFT HIP [facility] X64237 PAIN IN 08-22-2015 [facility] LEFT KNEE [facility] F21426 PAIN IN 08-22-2015 [facility] LEFT THIGH [facility] T78520G UNSPECIFIED 08-22-2015 [facility] INJURY MOBILE LEFT HIP DIAGNOSTIC INITIAL SE ENCOUNTER L851 ACQ 08-21-2015 BRAUDIS JAM KERATOSIS KERATODERMA PALMARIS ET PLANTARIS 30111 ABDOMINAL 05-30-2015 [place] PAIN, [facility] EPIGASTRIC IMAGING ASS 73725 OTHER 05-21-2015 [facility] DYSPNEA AND MEDICAL [place] [address] CHEST PAIN 05-21-2015 [facility]NSPEC[facility] 36588 05-21-2015 [facility] TRANSPORTAT ION SER 5180 PULMONARY 05-07-2015 [facility]LL[facility]SE [facility] 4019 UNSPECIFIED 04-06-2015 [facility] P N 31846 DIVERTICULO 03-25-2015 [facility] SIS OF MEDICAL COLON IM[facility]ING ASS 1101 DERMATOPHYT 11-27-2014 BRAUDIS JAM OSIS OF NAIL 31437 ATHEROSCLER 11-27-2014 BRA[facility]IS JAM OSIS NIKOLAI ART EXTREMITIES UNSPEC 7011 ACQUIRED 11-27-2014 BRATANESHAS TIFFANIE KERATODERMA 7295 PAIN IN 11-27-2014 BRAUDIS JAM SOFT TISSUES OF LIMB 7862 COUGH 08-16-2014 [facility] 25522 NONSPEC 08-09-2014 [facility] REACT MOBILE TUBERCULIN DIAGNOSTIC SKIN TEST SE W/O ACTIVE TB 515 POSTINFLAMM 06-05-2014 [facility]ICAL PULMONARY IMAGING ASS FIBROSIS 7851 PALPITATION 06-05-2014 [facility] S [facility] 496 CHRONIC 05-27-2014 [place] [facility] OBSTRUCTION IMAGING ASS NEC 6101 DIFFUSE 05-03-2014 [facility] CYSTIC N EMERGENCY MASTOPATHY PHYS 07240 MASTODYNIA 05-03-2014 JR JR DWI 4928 OTHER 04-25-2014 [facility] EMPHYSEMA [facility] 7866 SWELLING, 04-25-2014 [facility] LUMP IN INC CHEST 28201 OTHER 04-25-2014 [place] NONSPECIFIC MEDICAL ABNORMAL IMAGING ASS FINDING OF LUNG FIELD 2768 HYPOPOTASSE 04-05-2014 WEHRMAN III PEG MAXIM 27063 TRANSIENT 02-17-2014 [facility] FLA VISUAL LOSS 07251 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 01096 PSYCHOPHYSI 02-16-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 LYIDA MANSI VISUAL DISTURBANCE S 70088 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-16-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 LYDIA CEREBRAL ARTERY OCCLUSION W/INFARCT 66458 OSTEOARTHRO 09-02-2013 PETTEY JAM SIS UNSPEC WHETHER GEN/LOC LOWER LEG 22657 PAIN IN 09-02-2013 [facility] JOINT, [facility] LOWER LEG INC 4660 ACUTE 10-22-2012 JR JR BRONCHITIS DWI 490 BRONCHITIS 10-22-2012 L[facility] MAXIM NOT SPECIFIED ACUTE OR CHRONIC 7802 SYNCOPE AND 08-04-2012 [facility] 64028 OTHER CHEST 08-03-2012 [facility] LYDIA PAIN 2749 GOUT, 06-25-2012 [facility] LYDIA UNSPECIFIED 38257 SHORTNESS 06-25-2012 [facility] LYDIA OF BREATH 4111 INTERMEDIAT 05-28-2012 [facility] PAN E CORONARY SYNDROME 4139 OTHER AND 05-28-2012 [facility] DANIEL UNSPECIFIED MAXIM ANGINA PECTORIS 25763 OTHER 05-28-2012 [place] DISEASES OF MEDICAL LUNG NOT IMAGING ASS ELSEWHERE CLASSIFIED 5990 URINARY 03-12-2011 [facility] TRACT [facility]IC[facility] INFECTION LA SITE NOT SPECIFIED 48524 OTHER 03-12-2011 [facility] ABNORMAL PHYSICIANS GLUCOSE LA 9597 INJURY 03-12-2011 COMBINED OTHER&UNSPE PHYSICIANS CIFIED KNEE LA LEG ANKLE&FOOT 5589 OTH&UNSPEC 02-05-2011 [facility] NONINFECTIO [facility] US INC GASTROENTER ITIS&COLITI S 86634 OTHER 02-05-2011 [facility] MALAISE AND AMBULANCE FATIGUE SERVICE 63646 NAUSEA WITH 02-05-2011 [facility] 53216 DIARRHEA 02-05-2011 [facility] V5869 LONG-TERM 02-05-2011 [facility] (CURRENT) [facility] USE OF INC OTHER MEDICATIONS 700 CORNS AND 01-27-2011 [facility] 8930 OPEN WOUND 01-06-2011 [facility] MENTION COMPLICATIO N 7350 HALLUX 12-16-2010 [facility] 7354 OTHER 12-16-2010 [place] [facility] TO[place] FOOT PROFESSIONA [place] 8931 OPEN WOUND 12-16-2010 [facility] [address] HEAD 04-03-2010 [facility] INJURY, AMBULANCE UNSPECIFIED SERVICE 920 CONTUSION 04-02-2010 [facility] FACE EMERGENCY SCALP AND SERVICES [facility]CEPT [facility] EYE E8889 UNSPECIFIED 04-02-2010 [facility] 5210 DENTAL 03-04-2010 [facility] 7245 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-15-2010 [facility] BACKACHE AMBULANCE SERVICE 37317 ABDOMINAL 01-31-2010 [facility] PAIN, MEDICAL UNSPECIFIED IMAGING SITE ASSOCIATES 41326 ABDOMINAL 01-31-2010 [facility] PAIN, AMBULANCE GENERALIZED SERVICE 55600 ULCER OF 01-30-2010 [facility] OTHER PART OF FOOT 27815 UNSPECIFIED 01-26-2010 [facility]ERTIGO [facility] 7804 DIZZINESS 01-26-2010 [place] [facility] GIDDINESS IMAGING [facility]OC[facility]ATES 7840 HEADACHE 01-26-2010 [facility] AMBULANCE SERVICE 4619 ACUTE 12-02-2009 [facility] SINUSITIS, [facility] PROF SERV 02910 POISONING 09-21-2009 [facility] EMERGENCY AND RELATED PHYS INC NARCOTICS OTHER V0481 NEED 09-17-2009 [facility] PROPHYLACTI GABI Guzmán VACCINATION &INOCULATIO N FLU 30133 HEMATURIA 07-27-2009 [facility] UNSPECIFIED AMBULANCE SERVICE 98300 ABDOMINAL 07-27-2009 [facility] PAIN OTHER EMERGENCY SPECIFIED SERVICES SITE ASSOCIATES 69595 PAIN IN 04-19-2009 BRITTNEY, JOINT, [facility] ANKLE AND FOOT 6829 CELLULITIS 02-23-2009 CRIS, AND ABSCESS GABI Boateng OF UNSPECIFIED SITE 5253 RETAINED 10-18-2008 [facility] DENTAL [facility] 63626 PAIN IN 07-15-2008 [facility] JOINT, AMBULANCE FOREARM SERVICE 93805 SPRAIN AND 07-15-2008 [place] STRAIN OF MEDICAL UNSPECIFIED IMAGING SITE OF ASSOCIATES WRIST E8497 PLACE OF 07-15-2008 [facility] MEDICAL RESIDENTIAL IMAGING ASSOCIATES INSTITUTION E927 OVEREXERTIO 07-15-2008 [place] N&STRENUOUS MEDICAL &REPETITIVE IMAGING ASSOCIATES MVMNTS/LOAD S 73101 OSTEOARTHRO 06-23-2008 Agusto LYNCH INVLV MX GABI [...] 80 7- 8- 00 14 CA ve IN 01 20 20 53 RE AM 00 [...] AR MA MG CY TA BL ET IN 59 06 07 28 7 00 ME [...] 80 8- 7- 00 14 CA ve IN 01 20 20 35 RE AM 00 [...] 20 2- 2- 00 14 CA ve IN 00 20 20 18 RE AM 60 [...] 20 4- 5- 00 14 CA ve IN 00 20 20 04 RE AM 60 [...] 20 7- 7- 00 13 CA ve IN 00 20 20 90 RE AM 60 [...] 20 7- 0- 00 13 CA ve IN 00 20 20 76 RE AM 60 [...] 80 0- 7- 00 13 CA ve IN 01 20 20 62 RE AM 00 [...] 80 1- 3- 00 13 CA ve IN 01 20 20 47 RE AM 00 [...] 00 1. 1 ME 36 AR Ac IN 78 -1 -0 00 D 71 NO [...] Procedure DOS Code Location Performer Comment BASIC 14323 COMBINED COMBINED METABOLIC 7 PHYSICIAN PHYSICIAN PANEL S LA S LA CALCIUM TOTAL COLLECTIO 57734 COMBINED COMBINED N VENOUS 7 PHYSICIAN PHYSICIAN BLOOD S LA S LA VENIPUNCT URE TRAVEL [address] MED 7 PHYSICIAN PHYSICIAN NEC LAB S LA S LA SPEC; [place] [address] [facility] PEDROZA TROPONIN 7 [facility] [address] [facility] MCGRAWON TROPONIN 7 [facility] QUANTITAT INC INC SALONI RADIOLOGI 49529 [facility] C 7 PHYSICIAN EXAMINATI S, PLLC ON CHEST SINGLE VIEW FRONTAL BLOOD 14800 [facility] P[facility]RO[facility] COUNT 7 [facility] COMPLETE INC INC AUTO&AUTO DIFRNTL WBC RADIOLOGI 44853 [facility] EXAM 7 MEDICAL MEDICAL CHEST 2 IMAGING IMAGING VIEWS ASS ASS FRONTAL&L ATERAL ECG 53293 [facility] ECHEVARRIA ROUTINE 7 [facility] W/LEAST P 12 LDS I&R ONLY CREATINE 64960 [facility] MARIANO KINASE MB 7 [facility] FRACTION INC ONLY AMB A0427 [facility] SERVICE 7 AMBULANCE AMBULANCE ALS SERVICE SERVICE EMERGENCY TRANSPORT LEVEL [address] [place] [address] [facility]ED[facility] AMYLASE 7 [facility] INC INC COMPREHEN 92529 [facility] LAST SIVE 7 [facility] METABOLIC INC PANEL ECG 43980 [facility] PEDROZA ROUTINE 7 [facility] INC INC W/LEAST 12 LDS TRCG ONLY W/O I&R CREATINE 03095 [facility] PEREYRA KINASE 7 [place] [address] [facility] PED[facility] LIPASE 7 [facility] INC INC GROUND A0425 [facility] 7 AMBULANCE AMBULANCE PER SERVICE SERVICE STATUTE MILE CV STRS 93346 [facility] COOK TST 7 PHYSICIAN XERS&/OR S GROUP RX CONT ECG W/O I&R MYOCARDIA 36440 [facility] SRIVASTAV L SPECT 7 PHYSICIAN A MULTIPLE S GROUP STUDIES AMB A0427 [facility] SERVICE 7 AMBULANCE AMBULANCE ALS SERVICE SERVICE EMERGENCY TRANSPORT LEVEL 1 ECG 79206 [facility] ROUTINE 7 PHYSICIAN ECG S, PLLC W/LEAST 12 LDS I&R ONLY GROUND A[address] [place] [address] 7 AMBULANCE AMBULANCE PER SERVICE SERVICE STATUTE MILE ECG 03992 [facility] PEDROZA ROUTINE 7 [facility] ECG INC INC W/LEAST 12 LDS TRCG ONLY W/O I&R AMB A0427 [facility] SERVICE 7 AMBULANCE AMBULANCE ALS SERVICE SERVICE EMERGENCY TRANSPORT LEVEL 1 GROUND A0425 [facility] 7 AMBULANCE AMBULANCE PER SERVICE SERVICE STATUTE MILE ECG 29148 [facility] ECHEVARRIA ROUTINE 7 [facility] W/LEAST P 12 LDS I&R ONLY CT THORAX 92822 [facility] 7 MEDICAL W/CONTRAS IMAGING T ASS MATERIAL RADIOLOGI 93972 [facility] C 7 MEDICAL EXAMINATI IMAGING ON CHEST ASS SINGLE VIEW FRONTAL BASIC 02195 COMBIN[facility] COMBINED METABOLIC 7 PHYSICIAN PHYSICIAN PANEL S LA S LA CALCIUM TOTAL COLLECTIO 28311 COMBINED COMBINED N VENOUS 7 PHYSICIAN PHYSICIAN BLOOD S LA S LA VENIPUNCT URE TRAVEL [address] MED 7 PHYSICIAN PHYSICIAN NEC LAB S LA S LA SPEC; PRORATD TRIP CHRG TRAVEL [address] MED 6 PHYSICIAN PHYSICIAN NEC LAB S LA S LA SPEC; PRORATD TRIP CHRG COMPREHEN 83539 COMBINED COMBINED SIVE 6 PHYSICIAN PHYSICIAN METABOLIC S LA S LA PANEL COLLECTIO 05568 COMBINED COMBINED N VENOUS 6 PHYSICIAN PHYSICIAN BLOOD S LA S LA VENIPUNCT URE BLOOD 62054 COMBINED COMBINED COUNT 6 PHYSICIAN PHYSICIAN COMPLETE S LA S LA AUTO&AUTO DIFRNTL WBC BLOOD 87995 COMBINED COMBINED COUNT 6 PHYSICIAN PHYSICIAN COMPLETE S LA S LA AUTO&AUTO DIFRNTL WBC COLLECTIO 98330 COMBINED COMBINED N VENOUS 6 PHYSICIAN PHYSICIAN BLOOD S LA S LA VENIPUNCT URE COMPREHEN 23983 COMBINED COMBINED SIVE 6 PHYSICIAN PHYSICIAN METABOLIC S LA S LA PANEL TRAVEL [address] MED 6 PHYSICIAN PHYSICIAN NEC LAB S LA S LA SPEC; PRORATD TRIP CHRG ECG 17280 [facility] NORRIS JR ROUTINE 6 [facility] W/LEAST P 12 LDS I&R ONLY CT THORAX 73190 [place] [facility] ALL 6 MEDICAL W/CONTRAS IMAGING T ASS MATERIAL RADIOLOGI 28433 [facility] 6 MEDICAL MEDICAL EXAMINATI IMAGING IMAGING ON CHEST ASS ASS SINGLE VIEW FRONTAL GROUND A0425 [facility] 6 AMBULANCE AMBULANCE PER SERVICE SERVICE STATUTE MILE AMB A0427 [facility] SERVICE 6 AMBULANCE AMBULANCE ALS SERVICE SERVICE EMERGENCY TRANSPORT LEVEL 1 SET-UP Q0092 [facility] PORTABLE 6 MOBILE MOBILE X-RAY DIAGNOSTI DIAGNOSTI EQUIPMENT C SE C SE TRANS R0070 [facility] PRTBL 6 MOBILE MOBILE X-RAY DIAGNOSTI DIAGNOSTI EQP&PERS C SE C SE GINETTE/NRS GINETTE-TRIP 1 PT RADEX 71991 [facility] FOOT 6 MOBILE MOBILE COMPLETE DIAGNOSTI DIAGNOSTI MINIMUM 3 C SE C SE VIEWS CULTURE 73776 [facility] BACTERIAL 6 [facility] INC INC QUANTTATI VE COLONY COUNT URINE CULTURE 66428 [facility] P[facility]RO[facility] BCT 6 [facility] ISOL&PRSM INC INC PTV ID ISOLATE EA URINE SUSCEPTIB 94205 [facility] PEDRO[facility] LTY STDY 6 [facility] ANTIMICRB INC INC IAL MICRO/[place] [address] [facility] INFUSION 6 [facility] THER INC INC PROPH ADDL SEQUENTIA L TO 1 HR URNLS DIP 84557 [facility] P[facility]ROZA 6 [facility] STICK/TAB INC [place] [address] [facility] INFUSION 6 [facility] THERAPY/P INC INC ROPHYLAXI S /DX 1ST TO 1 HR THERAPEUT 06047 [facility] PEDRO[facility] IC 6 [facility] INJECTION INC INC IV PUSH EACH NEW DRUG COMPREHEN 11181 [facility] P[facility] SIVE 6 [facility] METABOLIC INC INC PANEL ECG 65971 [facility] PEDROZA ROUTINE 6 [facility] ECG INC INC W/LEAST 12 LDS TRCG ONLY W/O I&R 12-LEAD 3120F [facility] RENUSC ECG 6 PHYSICIAN [place] PERFORMED S, [place] [address] [place] MURILLO ALL ABDOMEN & 6 MEDICAL PELVIS IMAGING W/[place] [address] [facility] PEDROZA LIPASE 6 [facility] INC INC BLOOD 53405 [facility] PEDROZA COUNT 6 [facility] COMPLETE INC INC AUTO&AUTO DIFRNTL WBC PATIENT G8784 [facility] RENUSCH NOT 6 PHYSICIAN BRITTANEY Liz, [facility]. PT REFUSES URGENT/[place] [address] [facility] PEDROZA TROPONIN 6 [facility] QUANTITAT INC INC SALONI RADIOLOGI 79006 [facility] PEDROZA C 6 [facility] EXAMINATI INC INC ON CHEST SINGLE VIEW FRONTAL ECG 14121 [facility] NORRIS JR ROUTINE 6 [facility] W/LEAST P 12 LDS I&R ONLY GROUND A0425 [facility] MILEAGE 6 AMBULANCE AMBULANCE PER SERVICE SERVICE STATUTE MILE AMBULANCE A0429 [facility] SERVICE 6 AMBULANCE AMBULANCE BLS SERVICE SERVICE EMERGENCY TRANSPORT BASIC 90574 COMBINED COMBINED METABOLIC 6 PHYSICIAN PHYSICIAN PANEL S LA S LA CALCIUM TOTAL COLLECTIO 26633 COMBINED COMBINED N VENOUS 6 PHYSICIAN PHYSICIAN BLOOD S LA S LA VENIPUNCT URE TRAVEL [address] MED 6 PHYSICIAN PHYSICIAN NEC LAB S LA S LA SPEC; PRORATD TRIP CHRG DEBRIDEME 77425 NOEMI FRANKLIN NT NAIL 6 JAM JAM ANY METHOD 6/> PARING/CU 49585 NOEMI FRANKLIN TTING 6 JAM JAM BENIGN HYPERKERA TOTIC LESION 2-4 BLOOD 58931 [facility] OCCULT 6 [facility] PEROXIDAS INC INC E ACTV QUAL FECES 1-3 SPEC AMB A0427 [facility] SERVICE 6 AMBULANCE AMBULANCE ALS SERVICE SERVICE EMERGENCY TRANSPORT LEVEL [address] [place] [address] [facility] PEDROZA AMYLASE 6 [facility] INC INC CREATINE 08078 Y[facility] PEDROZA KINASE MB 6 [facility] FRACTION INC INC ONLY COMPREHEN 41134 [facility] SIVE 6 [facility] METABOLIC INC INC PANEL ECG 67068 [facility] P[facility]RO[facility] ROUTINE 6 [facility] ECG INC INC W/LEAST 12 LDS TRCG ONLY W/O I&[place] [address] [facility] PEDRO[facility] LIPASE 6 [facility] INC INC CREATINE 67081 [facility] PEDROZA KINASE 6 [facility] [place] [address] YOVANY YOVANY TROPONIN 6 [facility] QUANTITAT INC INC SALONI BLOOD 65646 [facility] PEDROZA COUNT 6 [facility] COMPLETE INC INC AUTO&AUTO DIFRNTL WBC ECG 36817 [facility] ECHEVARRIA ROUTINE 6 [facility] W/LEAST P 12 LDS I&R ONLY RADIOLOGI 06053 [place] [facility] C EXAM 6 MEDICAL ABDIRAHMAN CHEST 2 IMAGING VIEWS ASS FRONTAL&L ATERAL GROUND A0425 [facility] MILEAGE 6 AMBULANCE AMBULANCE PER SERVICE SERVICE STATUTE MILE BASIC 17850 COMBINED COMBINED METABOLIC 6 PHYSICIAN PHYSICIAN PANEL S LA S LA CALCIUM TOTAL COLLECTIO 58096 COMBINED COMBINED N VENOUS 6 PHYSICIAN PHYSICIAN BLOOD S LA S LA VENIPUNCT URE BLOOD 83221 COMBINED COMBINED COUNT 6 PHYSICIAN PHYSICIAN COMPLETE S LA S LA AUTO&AUTO DIFRNTL WBC TRAVEL [address] MED 6 PHYSICIAN PHYSICIAN NEC LAB S LA S LA SPEC; PRORATD TRIP CHRG PARING/CU 43704 BRAUDIS BRAUDIS TTING 6 JAM JAM BENIGN HYPERKERA TOTIC LESION 2-4 TRIMMING 71162 BRAUDIS BRAUDIS NONDYSTRO 6 JAM JAM PHIC NAILS ANY NUMBER DEBRIDEME 76861 BRAUDIS BRAUDIS NT NAIL 6 JAM JAM ANY METHOD 1-5 PARING/CU 20948 BRAUDIS BRAUDIS TTING 5 JAM JAM BENIGN HYPERKERA TOTIC LESION 2-4 DEBRIDEME 31110 BRAUDIS BRAUDIS NT NAIL 5 JAM JAM ANY METHOD 6/> NONEMERG A0120 FEDERATED FEDERATED TRNSPRT: 5 MINI-BUS TRANSPORT TRANSPORT MTN ATION SER ATION SER AREA/OTH SYS RADIOLOGI 68750 [facility] PEDROZA C EXAM 5 [facility] CHEST 2 INC INC VIEWS FRONTAL&L ATERAL RADIOLOGI 27246 [facility] C 5 MOBILE MOBILE EXAMINATI DIAGNOSTI DIAGNOSTI ON FEMUR C SE C SE [address] PELVIS 52401 [place] MUR[place] ALL W/O 5 MEDICAL CONTRAST IMAGING MATERIAL ASS RADIOLOGI 30775 [place] BRITTNEY C 5 MEDICAL ABDIRAHMAN EXAMINATI IMAGING ON KNEE ASS 1/2 VIEWS RADEX HIP 36316 [place] BR[place] 5 MEDICAL ABDIRAHMAN UNILATERA IMAGING L ASS COMPLETE MINIMUM 2 VIEWS PARING/CU 87224 NOEMI ULRICHS TTING 5 JAM JAM BENIGN HYPERKERA TOTIC LESION 2-4 DEBRIDEME 38315 NOEMI ULRICHS NT NAIL 5 [place]AM ANY METHOD 1-[place] [address] [place] MUR[place] ALL ABDOMEN & 5 MEDICAL PELVIS IMAGING W/O ASS CONTRAST MATERIAL CV STRS [address] [facility] XERS&/OR HOSPITAL RX CONT P ECG I&R ONLY CV STRS 32306 [facility] TST 5 PHYSICIAN XERS&/OR S GROUP RX CONT ECG W/O I&R NONEMERG A0120 FEDERATED FEDERATED TRNSPRT: 5 MINI-BUS TRANSPORT TRANSPORT MTN [facility] AREA/OTH SYS MYOCARDIA 85697 [place] BRITT[place] L SPECT 5 MEDICAL ABDIRAHMAN MULTIPLE IMAGING STUDIES ASS NONEMERG A0120 FEDERATED FEDERATED TRNSPRT: 5 MINI-BUS TRANSPORT [facility] 40920 [facility] 5 MEDICAL ERUM EXAMINATI IMAGING ON CHEST ASS SINGLE VIEW FRONTAL RADIOLOGI 26106 YOVANY PEDROZA C 5 [facility] EXAMINATI INC INC ON CHEST SINGLE VIEW FRONTAL ECG 74827 YOVANY ECHEVARRIA ROUTINE 5 [facility] W/LEAST P 12 LDS I&R ONLY RADIOLOGI 05766 [facility] 5 MEDICAL ERUM EXAMINATI IMAGING [place] [address] [facility] ABDOMEN & 5 MEDICAL ERUM PELVIS IMAGING W/O ASS CONTRAST MATERIAL PARING/CU 16326 NOEMI ULRICHS TTING 5 JAM JAM BENIGN HYPERKERA TOTIC LESION 2-4 RADIOLOGI 43471 [facility] EXAM 4 MEDICAL ERUM CHEST 2 IMAGING VIEWS ASS FRONTAL&L ATERAL RADIOLOGI 38206 [facility] C EXAM 4 MOBILE MOBILE CHEST 2 DIAGNOSTI DIAGNOSTI VIEWS C SE C SE FRONTAL&L ATERAL NONEMERG A0120 FEDERATED FEDERATED TRNSPRT: 4 TRANS [facility]BUS [facility]SP[facility] ARE[facility]/OTH SYS ECG 31406 ALFARIS ALFARIS ROUTINE 4 MOH MOH ECG W/LEAST 12 LDS I&R ONLY RADIOLOGI 45735 [facility] C 4 MEDICAL ERUM EXAMINATI IMAGING ON CHEST ASS SINGLE VIEW FRONTAL RADIOLOGI 65046 [facility] 4 MEDICAL ABDIRAHMAN EXAMINATI IMAGING ON CHEST ASS SINGLE VIEW FRONTAL NONEMERG A0120 FEDERATED FEDERATED TRNSPRT: 4 TRANS MINI-BUS TRANSPORT [facility] AREA/OTH SYS RADIOLOGI 47913 [facility] 4 MEDICAL ABDIRAHMAN EXAMINATI IMAGING ON CHEST ASS SINGLE VIEW FRONTAL ECG 10986 JR NORRIS JR ROUTINE 4 DWI DWI ECG W/LEAST 12 LDS I&R ONLY CT THORAX 62595 [facility] W/O 4 MEDICAL ABDIRAHMAN CONTRAST IMAGING MATERIAL ASS NONEMERG A0120 FEDERATED FEDERATED TRNSPRT: 4 TRANS MINI-BUS TRANSPORT [facility] AREA/OTH SYS RADIOLOGI 81541 [facility] 4 MEDICAL ABDIRAHMAN EXAMINATI IMAGING ON CHEST ASS SINGLE VIEW FRONTAL ECG 04977 [facility] CHRISTOPHER ROUTINE 4 III MAXIM III MAXIM ECG W/LEAST 12 LDS I&R ONLY NONEMERG A0120 FEDERATED FEDERATED TRNSPRT: 4 MINI-BUS TRANSPORT TRANSPORT MTN [facility] AREA/OTH SYS NONEMERG A0120 FEDERATED FEDERATED TRNSPRT: 4 MINI-BUS TRANSPORT TRANSPORT [facility] AREA/[place] [address] RASLAU RASLAU ANGIOGRAP 4 FLA FLA HY NECK W/CONTRAS T/[place] [address] RASLAU RASLAU ANGIOGRAP 4 FLA FLA HY HEAD W/CONTRAS T/NONCONT RAST CRITICAL 26516 CHIQUITA LYDIA CHIQUITA LYDIA CARE 4 ILL/INJUR ED PATIENT INIT 30-74 MIN PARING/CU 27949 NOEMI ULRICHS TTING 4 JAM JAM BENIGN HYPERKERA TOTIC LESION 2-4 DEBRIDEME 10597 NOEMI ULRICHS NT NAIL 4 JAM JAM ANY METHOD 6/> ARTHROCEN 59683 PETTEY PETTEY TESIS 3 JAM JAM ASPIR&/IN J MAJOR JT/BURSA W/O US RADIOLOGI 01854 BRITTNEY BRITTNEY C EXAM 3 ABDIRAHMAN ABDIRAHMAN KNEE COMPLETE 4/MORE VIEWS INJ J0702 PETTEY PETTEY BETAMETHA 3 JAM JAM SONE ACETATE & PHOSPHATE 3 MG NONEMERG A0120 LKLP CAC LKLP CAC TRNSPRT: 3 INC INC MINI-BUS REGION 11 REGION 11 MTN AREA/OTH SYS NONEMERG A0120 LKLP CAC LKLP CAC TRNSPRT: 3 INC INC MINI-BUS REGION 11 REGION 11 MTN AREA/OTH SYS ECG 33298 YOVANY PEDROZA ROUTINE 2 [facility] ECG INC INC W/LEAST 12 LDS TRCG ONLY W/O I&R ECG 57992 LISETTE KNOX ROUTINE 2 MAXIM MAXIM ECG W/LEAST 12 LDS I&R ONLY RADIOLOGI 89234 YOVANY PEDROZA C 2 [facility] EXAMINATI INC [place] [address] [place] BRITTNEY HEAD/BRAI 2 MEDICAL ABDIRAHMAN N W/[place] [address] [place] BRITTNEY MAXILLOFA 2 MEDICAL ABDIRAHMAN CIAL W/O IMAGING CONTRAST ASS MATERIAL OBSERVATI 12589 SWATHI ECHEVARRIA ON CARE 2 LYDIA LYDIA DISCHARGE MANAGEMEN T RADIOLOGI 48548 [place] BRITTNEY C EXAM 2 MEDICAL ABDIRAHMAN CHEST 2 IMAGING VIEWS ASS FRONTAL&L ATERAL ECG 39816 LEYDI HOLLEY ROUTINE 2 EMERGENCY EMERGENCY ECG SERVICES SERVICES W/LEAST 12 LDS I&R ONLY ECG 97665 JR NORRIS JR ROUTINE 2 DWI DWI ECG W/LEAST 12 LDS I&R ONLY XTRNL ECG 63689 YOVANY PEDROZA & 48 HR 2 [facility] RECORDING INC INC XTRNL ECG 32463 ETIENNEKEMIE MCKEMIE 2 JR MAXIM JR MAXIM CONTINUOU S RHYTHM W/I&R UP TO 48 HRS EXTERNAL 33621 YOVANY PEDROZA ECG 2 [facility] SCANNING INC INC ANALYSIS REPORT RADIOLOGI 70224 YOVANY PEDROZA C 2 [facility] EXAMINATI INC INC ON CHEST SINGLE VIEW FRONTAL ECG 39991 YOVANY PEDROZA ROUTINE 2 [facility] ECG INC INC W/LEAST 12 LDS TRCG ONLY W/O I&R ECG 25229 TAWNY HECTOR ROUTINE 2 ANIRUDH ANIRUDH ECG W/LEAST 12 LDS I&R ONLY MYOCARDIA 59572 FALLUJI COLBYUMARYBEL L SPECT 2 DENISE DENISE MULTIPLE STUDIES MYOCARDIA 15756 YOVANY PEDROZA L SPECT 2 [facility] MULTIPLE INC INC STUDIES NONEMERG A0120 LKLP LKLP TRNSPRT: 2 COMMUNITY COMMUNITY MINI-BUS ACTION ACTION NJN AREA/OTH SYS CV STRS [address] [facility] TST 2 XERS&/OR RX CONT ECG W/O I&R CV STRS 72457 YOVANY PEDROZA TST 2 [facility] XERS&/OR INC INC RX CONT ECG TRCG ONLY CV STRS 26601 JR NORRIS JR TST 2 DWI DWI XERS&/OR RX CONT ECG I&R ONLY ECG 09145 SWATHI ECHEVARRIA ROUTINE 2 LYDIA LYDIA ECG W/LEAST 12 LDS I&R ONLY ECG 27105 TAWNY HECTOR ROUTINE 2 ANIRUDH ANIRUDH ECG W/LEAST 12 LDS I&R ONLY NONEMERG A0120 LKLP LK TRNSPRT: 2 COMMUNITY COMMUNITY MINI-BUS ACTION ACTION MTN AREA/OTH SYS ECG 19394 LISETTE KNOX ROUTINE 2 MAXIM MAXIM ECG W/LEAST 12 LDS I&R ONLY RADIOLOGI 08416 [facility] C 2 MEDICAL ABDIRAHMAN EXAMINATI IMAGING ON CHEST ASS SINGLE VIEW FRONTAL PARING/CU 42253 BRAUDIS BRAUDIS TTING 2 JAM JAM BENIGN HYPERKERA TOTIC LESION 2-4 TRIMMING 65024 BRAUDIS BRAUDIS NONDYSTRO 2 JAM JAM PHIC NAILS ANY NUMBER PARING/CU 09401 BRAUDIS BRAUDIS TTING 2 JAM JAM BENIGN HYPERKERA TOTIC LESION 2-4 TRIMMING 39086 BRAUDIS BRAUDIS NONDYSTRO 2 JAM [place] [address] YOVANY PEDROZA TROPONIN 1 [facility] QUANTITAT INC INC SALONI RADIOLOGI 45912 [place] BRITTNEY C 1 MEDICAL ABDIRAHMAN EXAMINATI IMAGING ON CHEST ASS SINGLE VIEW FRONTAL BLOOD 63105 YOVANY PEDROZA COUNT 1 [facility] COMPLETE INC INC AUTO&AUTO DIFRNTL WBC ECG 99517 LEYDI CHRISTOPHER ROUTINE 1 EMERGENCY III MAXIM ECG SERVICES W/LEAST 12 LDS I&R ONLY CREATINE 75378 YOVANY PEDROZA KINASE 1 [facility] TOTAL INC INC ECG 73844 YOVANY PEDROZA ROUTINE 1 [facility] ECG INC INC W/LEAST 12 LDS TRCG ONLY W/O I&R COMPREHEN 27625 YOVANY PEDROZA SIVE 1 [facility] METABOLIC INC INC PANEL CREATINE 22154 YOVANY PEDROZA KINASE MB 1 [facility] FRACTION INC INC ONLY URNLS DIP 46548 COMBINED COMBINED 1 PHYSICIAN PHYSICIAN STICK/TAB S LA S LA LET REAGENT AUTO MICROSCOP Y COMPREHEN 95230 YOVANY PEDROZA SIVE 1 [facility] METABOLIC INC INC PANEL AMB A0427 [facility] SERVICE 1 AMBULANCE AMBULANCE ALS SERVICE SERVICE EMERGENCY TRANSPORT LEVEL 1 PRESSURIZ 70124 YOVANY YOVANY ED/NONPRE 1 [facility] SSURIZED [place] [address] YOVANY PEDROZA INFUSION 1 [facility] THERAPY/P INC INC ROPHYLAXI S /DX 1ST TO 1 HR THERAPEUT 60632 YOVANY PEDROZA IC 1 MEM [facility] INJECTION INC INC IV PUSH EACH NEW DRUG BLOOD 60636 YOVANY PEDROZA COUNT 1 [facility] COMPLETE INC INC AUTO&AUTO DIFRNTL WBC RADIOLOGI 71931 [facility] 1 MEDICAL ABDIRAHMAN EXAMINATI IMAGING ON CHEST ASS SINGLE VIEW FRONTAL GROUND A0425 [facility] AMBULANCE PER SERVICE SERVICE STATUTE MILE DEBRIDEME 32330 [facility] OPEN [address] Y Y WOUND [address] [facility] SQ CM/< NONEMERGE A0100 [facility] CAB NCY 1 COMMUNITY TRANSPORT ACTION ATION; TAXI DEBRIDEME 64167 [facility] OPEN 1 Y Y WOUND [address] [facility] SQ CM/< DEBRIDEME 85266 [facility] OPEN 1 FOOT FOOT WOUND 20 PROFESSIO PROFESSIO SQ CM/< NALS NALS RADEX 99406 [place] [facility] FOOT 1 MEDICAL COMPLETE SERV MINIMUM 3 FOUNDATIO VIEWS NONEMERGE A0100 [facility] NCY 1 COMMUNITY TRANSPORT ACTION ATION; TAXI URNLS DIP 88517 COMBINED COMBINED 1 PHYSICIAN PHYSICIAN STICK/TAB S LA S LA LET REAGENT AUTO MICROSCOP Y NONEMERGE A0100 [facility] CAB NCY 0 COMMUNITY TRANSPORT ACTION ATION; TAXI URNLS DIP 51832 COMBINED COMBINED 0 PHYSICIAN PHYSICIAN STICK/TAB S LA S LA LET REAGENT AUTO MICROSCOP Y URNLS DIP 30767 COMBINED COMBINED 0 PHYSICIAN PHYSICIAN STICK/TAB S LA S LA LET REAGENT AUTO MICROSCOP Y CULTURE 68691 COMBINED COMBINED BACTERIAL 0 PHYSICIAN PHYSICIAN S LA S LA QUANTTATI VE COLONY COUNT URINE GROUND A0425 [facility] MILEAGE 0 AMBULANCE AMBULANCE PER SERVICE SERVICE STATUTE MILE AMBULANCE A0429 [facility] SERVICE 0 AMBULANCE AMBULANCE BLS SERVICE SERVICE EMERGENCY TRANSPORT ORTHOPANT 97236 [facility], OGRAM 0 IMPLANT & ERIC R ORAL SURGERY [facility] ECG 10104 YOVANY NORRIS, ROUTINE 0 [facility] W/LEAST PROF SERV 12 LDS I&R ONLY ECG 16705 YOVANY PEDROZA ROUTINE 0 [facility] ECG INC INC W/LEAST 12 LDS TRCG ONLY W/O I&R ECG 46917 YOVANY PEDROZA ROUTINE 0 [facility] ECG INC INC W/LEAST 12 LDS TRCG ONLY W/O I&R URNLS DIP 85497 YOVANY PEDROZA 0 [facility] STICK/TAB INC INC LET REAGENT AUTO MICROSCOP Y ECG 54495 YOVANY NORRIS, ROUTINE 0 [facility] W/LEAST PROF SERV 12 LDS I&R ONLY CREATINE 44866 YOVANY PEDROZA KINASE 0 [facility] TOTAL INC INC CREATINE 59059 YOVANY PEDROZA KINASE MB 0 [facility] FRACTION INC INC ONLY BLOOD 12173 YOVANY PEDROZA COUNT 0 [facility] COMPLETE INC INC AUTO&[place] [address] YOVANY PEDROZA TROPONIN 0 [facility] QUANTITAT INC INC SALONI BASIC 40585 YOVANY PEDROZA METABOLIC 0 [facility] PANEL INC INC CALCIUM TOTAL AMBULANCE A0429 [facility] SERVICE 0 AMBULANCE AMBULANCE BLS SERVICE SERVICE EMERGENCY TRANSPORT GROUND A0425 [facility] MILEAGE 0 AMBULANCE AMBULANCE PER SERVICE SERVICE STATUTE MILE GROUND A0425 [facility] MILEAGE 0 AMBULANCE AMBULANCE PER SERVICE SERVICE STATUTE MILE AMBULANCE A0429 [facility] SERVICE 0 AMBULANCE AMBULANCE BLS SERVICE SERVICE EMERGENCY TRANSPORT ECG 10463 YOVANY LEACH ROUTINE 0 [facility] LUISANA F W/LEAST PROF SERV 12 LDS I&R ONLY RADEX ABD 14273 DOYLE LUGO, COMPL 0 MEDICAL HAYLEY AQT ABD IMAGING W/S/E/D ASSOCIATE VIEWS [address] [place] [address] YOVANY PEDROZA TROPONIN 0 [facility] QUANTITAT INC INC SALONI BLOOD 72465 YOVANY PEDROZA COUNT 0 [facility] COMPLETE INC INC AUTO&AUTO DIFRNTL WBC CREATINE 99359 YOVANY PEDROZA KINASE MB 0 [facility] [place] [address] YOVANY PEDROZA AMYLASE 0 [place] [address] YOVANY PEDROZA LIPASE 0 [facility] INC INC URNLS DIP 32550 YOVANY PEDROZA 0 [facility] STICK/TAB INC INC LET REAGENT AUTO MICROSCOP Y ECG 55727 YOVANY PEDROZA ROUTINE 0 [facility] ECG INC INC W/LEAST 12 LDS TRCG ONLY W/O I&R CREATINE 05602 YOVANY PEDROZA KINASE 0 [facility] TOTAL INC INC COMPREHEN 14855 YOVANY PEDROZA SIVE 0 [facility] METABOLIC INC INC PANEL DEBRIDEME 60765 ASHA BARRY NT SKIN [address] [place] [address] [place] OSIEL, HEAD/BRAI 0 MEDICAL GABRIELLA P N W/O IMAGING CONTRAST ASSOCIATE MATERIAL S 3D 63695 [facility] OSIEL, RENDERING 0 MEDICAL GABRIELLA P W/INTERP IMAGING & ASSOCIATE POSTPROCE S SS SUPERVISI ON AMB A0427 [facility] SERVICE 0 AMBULANCE AMBULANCE ALS SERVICE SERVICE EMERGENCY TRANSPORT LEVEL 1 GROUND A0425 [facility] MILEAGE 0 AMBULANCE AMBULANCE PER SERVICE SERVICE STATUTE MILE TRAVEL [address] MED 0 PHYSICIAN PHYSICIAN NEC LAB S LAB S LAB SPEC; PRORATD TRIP CHRG BLOOD 42739 COMBINED COMBINED COUNT 0 PHYSICIAN PHYSICIAN COMPLETE S LAB S LAB AUTO&AUTO DIFRNTL WBC COLLECTIO 81931 COMBINED COMBINED N VENOUS 0 PHYSICIAN PHYSICIAN BLOOD S LAB S LAB VENIPUNCT URE DEBRIDEME 31925 ASHA BARRY NT SKIN 0 [place] [address] YOVANY PEDROZA INFUSION 0 [facility] THERAPY/P INC INC ROPHYLAXI S /DX 1ST TO 1 HR THERAPEUT 99046 OYVANY PEDROZA IC 0 [facility] INJECTION INC INC IV PUSH EACH NEW DRUG AMB A0427 [facility] SERVICE 0 AMBULANCE AMBULANCE ALS SERVICE SERVICE EMERGENCY TRANSPORT LEVEL 1 CREATINE 01069 YOVANY PEDROZA KINASE MB 0 [facility] FRACTION INC INC ONLY GROUND A0425 [facility] MILEAGE 0 AMBULANCE AMBULANCE PER SERVICE SERVICE STATUTE MILE 3D 00642 DOYLE CARTAGENA, RENDERING 0 MEDICAL GABRIELLA P W/INTERP IMAGING & ASSOCIATE POSTPROCE S SS SUPERVISI ON HEPATIC 27213 YOVANY PEDROZA FUNCTION 0 [facility] PANEL INC INC ECG 79089 YOVANY PEDROZA ROUTINE 0 [facility] ECG INC INC W/LEAST 12 LDS TRCG ONLY W/O I&R CREATINE 70233 YOVANY PEDROZA KINASE 0 [facility] TOTAL INC INC ECG 44092 LEYDI HECTOR, ROUTINE 0 EMERGENCY ALEX S ECG SERVICES W/LEAST 12 LDS ASSOCIATE I&R ONLY S BASIC 14306 YOVANY PEDROZA METABOLIC 0 [facility] PANEL INC INC CALCIUM TOTAL BLOOD 06190 YOVANY PEDROZA COUNT 0 [facility] COMPLETE INC INC AUTO&[place] [address] [facility] CARTAGENA, HEAD/BRAI 0 MEDICAL GABRIELLA P N W/O IMAGING [place] [address] YOVANY PEDROZA TROPONIN 0 [facility] QUANTITAT INC INC SALONI DUP-SCAN 91211 YOVANY PEDROZA XTR VEINS 9 [facility] INC INC UNILATERA L/LIMITED STUDY GROUND A0425 [facility] MILEAGE 9 AMBULANCE AMBULANCE PER SERVICE SERVICE STATUTE MILE AMBULANCE A0429 [facility] SERVICE 9 AMBULANCE AMBULANCE BLS SERVICE SERVICE EMERGENCY TRANSPORT AMBULANCE A0429 JESSAMINE JESSAMINE SERVICE 9 CO CO BLS AMBULANCE AMBULANCE EMERGENCY TRANSPORT GROUND A0425 JESSAMINE JESSAMINE MILEAGE 9 CO CO PER AMBULANCE AMBULANCE STATUTE MILE ECG 10930 [facility] ROUTINE [address] [facility] ECG W/LEAST 12 LDS TRCG ONLY W/O I&R ECG 84346 [facility], ROUTINE 9 RADHA DMITRIY G ECG EMERGENCY W/LEAST PHYS INC 12 LDS I&R ONLY IIV3 29206 CRIS LYN[facility], VACCINE 9 GABI Boateng GABI Boateng SPLIT VIRUS 0.5 ML DOSAGE IM USE ADMINISTR G0008 [facility] LYN[facility], ATION OF 9 GABI W GABI Boateng INFLUENZA VIRUS VACCINE URNLS DIP 14207 YOVANY YOVANY 9 [facility] STICK/TAB INC INC LET REAGENT AUTO MICROSCOP Y GROUND A0425 [facility] 9 AMBULANCE AMBULANCE [place] [address] [place] OSIEL, ABDOMEN 9 MEDICAL GABRIELLA P W/O IMAGING CONTRAST ASSOCIATE MATERIAL S BASIC 83035 YOVANY PEDROZA METABOLIC 9 [facility] PANEL INC INC CALCIUM TOTAL 3D 58985 YOVANY PEDROZA RENDERING 9 [facility] INC INC W/INTERP& POSTPROC DIFF WORK STATION CT PELVIS 97990 [place] OSIEL, W/O 9 MEDICAL GABRIELLA P CONTRAST IMAGING MATERIAL ASSOCIATE S BLOOD 98323 YOVANY PEDROZA COUNT 9 [facility] COMPLETE INC INC AUTO&AUTO DIFRNTL WBC AMBULANCE A0429 [facility] SERVICE 9 AMBULANCE AMBULANCE BLS SERVICE SERVICE EMERGENCY TRANSPORT RADIOLOGI 98369 [facility] C 9 Stockezy EXAMINATI ON KNEE 3 VIEWS TRANS R0075 [facility] PRTBL 9 Stockezy XRAY EQP&PERS GINETTE/NRS GINETTE-TRIP> 1 PT SET-UP Q0092 [facility] PORTABLE 9 Stockezy X-RAY EQUIPMENT URNLS DIP 09406 COMBINED COMBINED 9 PHYSICIAN PHYSICIAN STICK/TAB S LAB S LAB LET REAGENT AUTO MICROSCOP Y DEBRIDEME 43852 ASHA, ASHA, NT SKIN 9 ANGY S ANGY S PARTIAL THICKNESS MRI LOWER 17287 BRITTNEYBRITTNEY, EXTREM 9 HAYLEY HAYLEY OTH/THN JT W/O & W/CONTR MATR COLLECTIO 01610 COMBINED COMBINED N VENOUS 9 PHYSICIAN PHYSICIAN BLOOD S [place] [address] COMBINED COMBINED UREA 9 PHYSICIAN PHYSICIAN NITROGEN S LAB S LAB QUANTITAT SALONI CREATININ 64840 COMBINED COMBINED E BLOOD 9 PHYSICIAN PHYSICIAN S LAB S LAB TRAVEL [address] MED 9 PHYSICIAN PHYSICIAN NEC LAB S LAB S LAB SPEC; PRORATD TRIP CHRG DEBRIDEME 35453 FOLLMER, FOLLMER, NT SKIN 9 ANGY S ANGY S PARTIAL THICKNESS DEBRIDEME 47062 FOLLMER, FOLLMER, NT SKIN 9 ANGY S ANGY S PARTIAL THICKNESS DEBRIDEME 41408 FOLLMER, FOLLMER, NT SKIN 9 ANGY S ANGY S PARTIAL THICKNESS RADIOLOGI 18741 ASHA BARRY, C 9 ANGY S ANGY S EXAMINATI ON FOOT 2 VIEWS SBSQ 00835 CRIS LYN[facility], NURSING 9 GABI Boateng FACIL CARE/DAY MINOR COMPLJ 15 MIN ORTHOPANT 44528 NC KARAN ESTRADA 8 FOR EDENILSON E ORAL&MAXI LLOFACIAL SURGERY IIV3 04414 CRIS LYNCH, VACCINE 8 GABI Boateng SPLIT VIRUS 0.5 ML DOSAGE IM USE ADMINISTR G0008 CRIS LYNCH, ATION OF 8 GABI Boateng INFLUENZA VIRUS VACCINE TRAVEL [address] MED 8 PHYSICIAN PHYSICIAN NEC LAB S LAB S LAB SPEC; PRORATD TRIP CHRG BASIC 80890 COMBINED COMBINED METABOLIC 8 PHYSICIAN PHYSICIAN PANEL S LAB S LAB CALCIUM TOTAL COLLECTIO 75965 COMBINED COMBINED N VENOUS 8 PHYSICIAN PHYSICIAN BLOOD S LAB S LAB VENIPUNCT URE BLOOD 17774 COMBINED COMBINED COUNT 8 PHYSICIAN PHYSICIAN COMPLETE S LAB S LAB AUTO&AUTO DIFRNTL WBC GROUND A0425 [facility] MILEAGE 8 AMBULANCE AMBULANCE PER SERVICE SERVICE STATUTE MILE RADEX 68424 YOVANY PEDROZA WRIST 8 [facility] COMPLETE INC INC MINIMUM 3 VIEWS AMBULANCE A0429 [facility] SERVICE 8 AMBULANCE AMBULANCE BLS SERVICE SERVICE EMERGENCY TRANSPORT SBSQ 08-15-200 52185 CRIS LYNCH, NURSING 8 GABI Boateng FACIL CARE/DAY MINOR COMPLJ 15 MIN SBSQ 82418 CRIS LYNCH, NURSING 8 GABI Boateng FACIL CARE/DAY MINOR COMPLJ 15 MIN Encounters Encounter Start End Date Code Location Performer Type Date EMERGENCY 65796 YOVANY 7 7 [facility] VISIT HIGH/URGE NT SEVERITY EMERGENCY 71260 [facility] DEPT 7 7 PHYSICIAN VISIT S, [facility] HIGH SEVERITY& THREAT [facility] YOVANY - 7 7 [facility] EMERGENCY 65760 [facility] DEPT 7 7 PHYSICIAN VISIT S, [facility] HIGH SEVERITY& THREAT [facility] YOVANY - 7 7 [facility] EMERGENCY 10020 [facility] DEPT 6 6 PHYSICIAN BRITTANEY VISIT S, [facility] HIGH SEVERITY& THREAT [facility] YOVANY - 6 6 [facility] YOVANY - 6 6 [facility] 99874 YOVANY 6 6 [facility] VISIT MODERATE SEVERITY OFFICE 04849 [facility] CONSULT 5 5 CLAUDINE BOWLES PHYSICIAN NEW/ESTAB S ASSIST PATIENT 60 MIN [facility]OSPITAL YOVANY - 5 5 [facility] Y[facility]ANY - 5 5 [facility] YOVANY - 5 5 [facility]IEN [facility] YOVANY - 4 4 [facility] YOVANY - 3 3 [facility] YOVANY - 2 2 [facility] YOVANY - 2 2 [facility] YOVNAY - 2 2 [facility] YOVANY - 2 2 [facility] YOVANY - 1 1 [facility] 22852 LEYDI CHRISTOPHER DEPT 1 1 EMERGENCY III MAXIM VISIT SERVICES HIGH SEVERITY& THREAT [facility] EMERGENC[facility] 87883 YOVANY 1 1 [facility] T VISIT HIGH/URGE NT SEVERITY EMERGENCY 23754 LEYDI CHRISTOPHER DEPT 1 1 EMERGENCY III MAXIM VISIT SERVICES HIGH SEVERITY& THREAT [facility] EMERGENCY 07578 YOVANY 1 1 [facility] T VISIT HIGH/URGE NT SEVERITY HOSPITAL YOVANY - 1 1 [facility] 1 1 Y [facility] UN[facility] - 1 1 Y [facility] T [facility]ICE 53166 [facility] 1 1 FOOT FOOT T 30 PROFESSIO PROFESSIO MINUTES [facility] YOVANY - 0 0 [facility]PATIEN [facility] EM[facility]ENC[facility] 73279 LEYDI HECTOR, 0 0 EMERGENCY [facility] DEPARTMEN SERVICES T VISIT HIGH/URGE ASSOCIATE NT S SEVERITY EMERGENCY 99395 YOVANY 0 0 [facility] T VISIT LIMITED/M INOR PROB OFFICE 66648 [facility], OUTPATIEN 0 0 IMPLANT & ERIC R T NEW 20 ORAL MINUTES [facility] YOVANY - 0 0 [facility] OUTPATIEN [facility] T EMERGENCY 57850 YOVANY 0 0 [facility] DEPARTMEN INC T VISIT HIGH/URGE NT SEVERITY EMERGENCY 09668 LEYDI HECTOR, DEPT 0 0 EMERGENCY ALEX S VISIT SERVICES HIGH SEVERITY& ASSOCIATE THREAT S [facility]LY [facility], [facility] EMERGENCY 14371 LEYDI HECTOR, DEPT 0 0 EMERGENCY ALEX S VISIT SERVICES HIGH SEVERITY& ASSOCIATE THREAT S [facility], [facility] HOSPITAL YOVANY - 0 0 [facility] OUTPATIEN INC T EMERGENCY 54678 YOVANY 0 0 [facility] DEPARTMEN INC T VISIT HIGH/URGE NT SEVERITY [facility]OSPITAL YOVANY - 0 0 [facility] OUTPATIEN INC T EMERGENCY 13090 LEYDI CHRISTOPHER DEPT 0 0 EMERGENCY III, VISIT SERVICES LUISANA HIGH SEVERITY& ASSOCIATE THREAT S [facility], [facility] EMERGENCY 89455 YOVANY 0 0 [facility] DEPARTMEN INC T VISIT MODERATE SEVERITY HOSPITAL YOVANY - 0 0 [facility] OUTPATIEN INC T EMERGENCY 89343 LEYDI HECTOR, DEPT 0 0 EMERGENCY ALEX S VISIT SERVICES HIGH SEVERITY& ASSOCIATE THREAT S [facility], [facility] EMERGENCY 23785 YOVANY 0 0 [facility] DEPARTMEN INC T VISIT HIGH/URGE NT SEVERITY OFFICE 89877 ASHA BARRY, OUTPATIEN 0 0 ANGY S ANGY S T VISIT 10 MINUTES EMERGENCY 41025 YOVANY 9 9 [facility] DEPARTMEN INC T VISIT LOW/MODER SEVERITY [facility] [place] - 9 9 [facility] OUTPATIEN INC T EMERGENCY 34463 [facility] VISIT HIGH SEVERITY& THREAT [facility] HOSPITAL [facility] - 9 [facility] OUTPATIEN T EMERGENCY 76556 [facility] MODERATE SEVERITY EMERGENCY 59839 LEYDI HECTOR, DEPT 9 9 EMERGENCY ALEX S VISIT SERVICES HIGH SEVERITY& ASSOCIATE THREAT S [facility] EMERGENCY 96892 YOVANY 9 9 [facility] T VISIT HIGH/URGE NT SEVERITY [facility]OSPITAL YOVANY - 9 9 [facility] T OFFICE [id number] ASHA BARRY OUTPATIEN 9 9 ANGY S ANGY S T VISIT 10 MINUTES OFFICE 90045 ASHA BARRY OUTPATIEN 9 9 ANGY S ANGY S T VISIT 10 MINUTES OFFICE 26661 ASHA BARRY OUTPATIEN 9 9 ANGY S ANGY S T NEW 30 MINUTES OFFICE 51497 NC JUSTIN ESTRADA 8 8 FOR EDENILSON E T NEW 10 ORAL&MAXI MINUTES LLOFACIAL SURGERY [facility] YOVANY - 8 8 [facility] T EMERGENCY [id number] YOVANY 8 8 [facility] T VISIT MODERATE SEVERITY
--- OUTSIDE RECORDS SUMMARY | 2017-06-08 23:16 | External Medical Summary Rpt ---
Author Author [employer], [employer] Organization [employer] Address Unknown Phone Unavailable Results CBC W Auto Differential panel in Blood Observa Value Referen Units Interpr Notes Date tion ce etation Range Basophils 0 - 0.2 K/MM3 Normal No Apr 18 informati 2016 3:00 [#/volume on in PM ] in source Blood by data Automated count Basophils 0.1 - 2.0 % Normal No Apr 18 /100 informati 2017 3:00 leukocyte on in PM s in source Blood by data Automated count Eosinophi 0.0 - 0.4 K/mm3 Normal No Apr 26 ls informati 2016 3:00 [#/volume on in PM ] in source Blood by data Automated count Eosinophi 0.1 - % Normal No Apr 26 ls/100 12.0 informati 2016 3:00 leukocyte on in PM s in source Blood by data Automated count Granulocy 1.8 - 7.8 K/mm3 Normal No Apr 26 torres informati 2016 3:00 [#/volume on in PM ] in source Blood by data Automated count Granulocy 37.0 - % Normal No Apr 26 torres/100 80.0 informati 2016 3:00 leukocyte on in PM s in source Blood by data Automated count Hematocri 37.0 - % Low No Apr 26 t [Volume 47.0 informati 2016 3:00 on in PM Fraction] source of Blood data Hemoglobi 12.2 - g/dL Low No Apr 26 n 16.2 informati 2016 3:00 [Mass/vol on in PM ume] in source Blood data Lymphocyt 0.7 - 4.5 K/mm3 Normal No Apr 26 es informati 2016 3:00 [#/volume on in PM ] in source Unspecifi data ed specimen by Automated count Lymphocyt 10 - 50.0 % Normal No Apr 26 es informati 2016 3:00 [#/volume on in PM ] in source Unspecifi data ed specimen by Automated count Erythrocy 27 - 31.2 pg Normal No Apr 26 te mean informati 2016 3:00 corpuscul on in PM ar source hemoglobi data n [Entitic mass] Erythrocy 31.8 - g/dl Normal No Apr 26 te mean 35.4 inform2016 3:00 corpuscul on in PM ar source hemoglobi data n concentra tion [Mass/vol ume] by Automated count Erythrocy 82.2 - fl Normal No Apr 26 te mean 97.8 2016 3:00 corpuscul on in PM ar volume source [Entitic data volume] by Automated count Monocytes 0.1 - 1.0 K/mm3 Normal No Apr 262016 3:00 [#/volume on in PM ] in source Blood by data Automated count Monocytes 1.7 - 9.3 % Normal No Apr 26 informati 2016 3:00 leukocyte on in PM s in source Blood by data Automated count Platelet 7.4 - fl Normal No Apr 26 mean 10.4 inform2016 3:00 volume on in PM [Entitic source volume] data in Blood by Automated count Platelets 142 - 424 K/mm3 Normal No Apr 262016 3:00 [#/volume on in PM ] in source Blood data Erythrocy 4.2 - 5.4 M/mm3 Low No Apr 26 torres inform2016 3:00 [#/volume on in PM ] in source Amniotic data fluid Erythrocy 11.5 - % Normal No Apr 26 te 17.5 2016 3:00 distribut on in PM ion width source [Entitic data volume] by Automated count Leukocyte 4.8 - K/MM3 Normal No Apr 26 s 10.8 informati 2016 3:00 [#/volume on in PM ] in source Blood data CBC W Auto Differential panel in Blood Observa Value Referen Units Interpr Notes Date tion ce etation Range Basophils 0 - 0.2 K/MM3 Normal No April 08ati 2016 8:15 [#/volume on in PM ] in source Blood by data Automated count Basophils 0.1 - 2.0 % Normal No April 08 informati 2016 8:15 leukocyte on in PM s in source Blood by data Automated count Eosinophi 0.0 - 0.4 K/mm3 Normal No April 08 ls informati 2016 8:15 [#/volume on in PM ] in source Blood by data Automated count Eosinophi 0.1 - % Normal No April 08 ls/100 12.0 informati 2017 8:15 leukocyte on in PM s in source Blood by data Automated count Granulocy 1.8 - 7.8 K/mm3 Normal No April 08 torres informati 2016 8:15 [#/volume on in PM ] in source Blood by data Automated count Granulocy 37.0 - % Normal No April 08 torres/100 80.0 informati 2016 8:15 leukocyte on in PM s in source Blood by data Automated count Hematocri 37.0 - % Low No April 08 t [Volume 47.0 informati 2016 8:15 on in PM Fraction] source of Blood data Hemoglobi 12.2 - g/dL Low No April 08 n 16.2 informati 2016 8:15 [Mass/vol on in PM ume] in source Blood data Lymphocyt 0.7 - 4.5 K/mm3 Normal No April 08 es informati 2016 8:15 [#/volume on in PM ] in source Unspecifi data ed specimen by Automated count Lymphocyt 10 - 50.0 % Normal No April 08 es informati 2016 8:15 [#/volume on in PM ] in source Unspecifi data ed specimen by Automated count Erythrocy 27 - 31.2 pg Normal No April 08 te mean informati 2016 8:15 corpuscul on in PM ar source hemoglobi data n [Entitic mass] Erythrocy 31.8 - g/dl Normal No April 08 te mean 35.4 informati 2016 8:15 corpuscul on in PM ar source hemoglobi data n concentra tion [Mass/vol ume] by Automated count Erythrocy 82.2 - fl Normal No April 08 te mean 97.8 informati 2016 8:15 corpuscul on in PM ar volume source [Entitic data volume] by Automated count Monocytes 0.1 - 1.0 K/mm3 Normal No April 08 informati 2016 8:15 [#/volume on in PM ] in source Blood by data Automated count Monocytes 1.7 - 9.3 % Normal No April 08 informati 2016 8:15 leukocyte on in PM s in source Blood by data Automated count Platelet 7.4 - fl Low No April 08 mean 10.4 informati 2016 8:15 volume on in PM [Entitic source volume] data in Blood by Automated count Platelets 142 - 424 K/mm3 Normal No April 08 informati 2016 8:15 [#/volume on in PM ] in source Blood data Erythrocy 4.2 - 5.4 M/mm3 Low No April 08 torres informati 2017 8:15 [#/volume on in PM ] in source Amniotic data fluid Erythrocy 11.5 - % Normal No April 08 te 17.5 informati 2016 8:15 distribut on in PM ion width source [Entitic data volume] by Automated count Leukocyte 4.8 - K/MM3 Normal No April 08 s 10.8 informati 2017 8:15 [#/volume on in PM ] in source Blood data
--- OUTSIDE RECORDS SUMMARY | 2017-06-08 23:16 | External Medical Summary Rpt ---
Demographics Preferred Language Italian Marital Status Unknown Cheondoism Affiliation Unknown Race Unknown Ethnic Group Unknown Author Author , RENAN WEBB Address Unknown Phone Immunization Unable to retrieve immunization data due to connection failure with Immunization Registry. Please try again later.
--- OUTSIDE RECORDS SUMMARY | 2017-06-08 23:16 | External Medical Summary Rpt ---
Demographics Preferred Language Maltese Marital Status Unknown Islam Affiliation Unknown Race Unknown Ethnic Group Unknown Author Author , RENAN WEBB Address Unknown Phone Immunization Unable to retrieve immunization data due to connection failure with Immunization Registry. Please try again later.
[2017-06-08 23:29] LABS: BUN 17 mg/dL (7-18); GFR (ESTIMATED) 99 ML/MIN (59-)
[2017-06-08 23:38] VITALS: BP 91/68
--- NOTE | 2017-06-09 07:56 | RADIOLOGY REPORT PS360 ---
CHEST-PORTABLE COMPARISON: Portable upright chest 04/26/2017 HISTORY: Chest pain TECHNIQUE: Portable upright chest FINDINGS: The lung dc are well expanded and appear clear of infiltrate. The cardiac silhouette and vascularity are normal and the costophrenic angles are clear. There are small calcified left hilar nodes. IMPRESSION: Nonacute chest findings
== END 2017-06-08 23:52 | disposition home or self-care (01) ==
LOC: ER 22:29
PROVIDERS: Emergency Medicine
DX: R07.9 Chest pain, unspecified (principal); K21.9 Gastro-esophageal reflux disease without esophagitis; I10 Essential (primary) hypertension

== ENCOUNTER 2017-08-12 19:58 | Emergency (ER) | payer MEDICARE, MEDICAID ==
[~2017-08-12] VITALS: Ht 177.8 cm; Wt 81.6 kg
[2017-08-12 20:21] LABS: HEMOGLOBIN 12.4 g/dL (12.2-16.2); LYMPH % 41.3 % (10-50.0)
[2017-08-12 20:42] LABS: BUN 12 mg/dL (7-18)
[2017-08-12 20:44] LABS: GFR (ESTIMATED) 82 ML/MIN (59-)
--- NOTE | 2017-08-12 21:02 | Emergency Room Report ---
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 N Clinical Suspician of Infection? N Mental Status: 1 - Regular (Normal Baseline) Sepsis Risk:Low Sepsis Risk Have you (or family members/close friends) recently traveled outside the [place]? N If Yes, where/when: Have you had exposure to infectious disease within the past month? TB? Other? Specify: Source patient, RN notes reviewed, family, EMS, shelter records, old records Exam Limitations no limitations Comment pt with epigastric pain with no vomiting pt denied any sx at this time - pt with nl gxt in 01/23 - Cardiac Chest Pain Chest pain indicative of cardiac No Timing/Duration this evening Severity moderate ALLERGIES Coded Allergies: No Known Allergies (04/26/17) Home Medications Active Scripts Amoxicillin (Amoxicillin 500MG) 500 MG PO TID #30 CAP Prov: 06/28/17 Prednisone (Prednisone 5MG) 5 MG PO DIRECTED #39 TAB Prov: 06/28/17 Pantoprazole Sodium (Protonix 40MG TAB) 40 MG PO DAILY #30 TAB Ref 6 Prov: 09/02/15 ASPIRIN (Aspirin EC) 325 MG PO DAILY #30 Prov: 06/26/12 Reported Medications BENZTROPINE MESYLATE (COGENTIN 1MG TAB) 1 TAB PO BID Buspirone Hcl 10 TAB PO BID Nitroglycerin (Nitrostat 0.4MG (1/150 Gr) Tabs #25) 0.4 MG SL [id number] Baclofen (Baclofen 20MG) 1 TAB PO BID LOPERAMIDE HCL (Loperamide) 2 MG PO Q8HP DEXTROMETHORPHAN-GG (Guaifenesin Dm Syrup) 10 ML PO Q6HP CITALOPRAM HYDROBROMIDE (Citalopram HBr) 20 mg PO DAILY Lorazepam (Lorazepam 1MG) 1 MG PO TID Gabapentin (Gabapentin 100MG) 100 MG PO TID Allopurinol 100 MG PO BID Prochlorperazine Maleate 10 MG PO Q6HP PRN UNKNOWN Potassium Chloride (Klor-Con M20) 20 MEQ PO TID TRIAMTERENE/HYDROCHLOROTHIAZID (Triamterene-Hctz 75-50 MG Tab) 1 TAB PO DAILY Loratadine (Claritin 10MG) 10 MG PO DAILY Olanzapine (Zyprexa) 5 MG PO BID Acetaminophen (Tylenol XS 500MG) 1,000 MG PO Q6HP PRN PAIN Simethicone 30 ML PO Q 4 HOURS PRN INDIGESTION Lactulose (Lactulose) 1 DOSE PO DAILY NITROGLYCERIN (Nitrostat) 0.4 MG SL [id number] PRN CHEST PAIN Albuterol Sulfate (Proair Hfa) 1 PUFF IH Q4 HOURS PRN SOB Atorvastatin Calcium (Lipitor 10MG) 10 MG PO QHS History Medical History General CAD? No Angina: No [place]: No Hypertension? Yes Hyperlipidemia? No CHF? No DVT? No PE? No COPD? No Asthma? No Anemia? No GERD? Yes Gastric ulcers? No GI Bleed? No Hernia? No Thyroid Problems? No Hypothyroidism? No CVA? No Seizures? No Diabetes? No Insulin Dependent: No Insulin Pump: No Home FSBS? No Renal Insuffiency? No End Stage Renal Disease? No UTI? No Stones? No BPH? No GB Disease: Yes Nephritic Syndrome? No Asplenia? No Hepatitis? No Sickle Cell Disease? No Arthritis? Yes Migraines? No Cataracts? No Glaucoma? No MRSA? No HIV? No TB? No Anxiety? No Depression? No Cancer? No More? 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 Respiratory denies cough, denies shortness of breath, denies wheezing Cardiovascular denies chest pain, denies palpitations, denies syncope Gastrointestinal see HPI, abdominal pain, denies constipation, denies diarrhea, denies vomiting Genitourinary denies: dysuria, frequency, hesitancy, hematuria. Musculoskeletal denies back pain, denies joint pain, denies joint swelling, denies neck pain Skin denies rash Psychiatric/Neurological denies headache, denies seizure Physical Exam Vital Signs Vital Signs Date Time Temp Pulse Resp B/P Pulse O2 O2 Flow FiO2 Ox Delivery Rate 08/12 2059 98.1 68 20 158/93 95 08/12 2003 98.1 69 20 144/67 96 - WBC >12,000 or <4,000 or 10% bands? 2 or more SIRS Criteria Met? B/P:158/93 MAP:92 Creatinine >2.0? UA output<0.5ml/kg/hr for 2 hrs? Platelet count >100,000? Lactate >2.0mmol/1? INR >1.2 or PTT > than 60 sec? Evidence of Organ Dysfunction? Provider documented clinical suspician of infection? N Sepsis Criteria Count: 1 Sepsis Risk: Low Sepsis Risk General Appearance no apparent distress Eye Exam - bilateral eye PERRL, bilateral eye EOMI Ear, Nose, Throat normal ENT inspection Neck supple Respiratory Status No: respiratory distress. Lung Sounds bilateral: lungs clear. 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 No Results/Orders Laboratory Tests 08/12/17 0600: Sodium 140, Potassium 3.6, Chloride 104, Carbon Dioxide 27, BUN 12, Creatinine 0.7, Estimated Creat Clear 95, Estimated GFR (MDRD) 82, Glucose 100, Calcium 8.8 , Total Bilirubin 0.2, AST 13 L, ALT 32, Alkaline Phosphatase 116, Creatine Kinase 56, CK-MB (CK-2) Rel Index 1.1, CK and CKMB Interp 0.6, Troponin I < 0.02 , Total Protein 7.0, Albumin 3.7, Globulin 3.3 H, Albumin/Globulin Ratio 1.1, WBC 7.2, RBC 4.13 L, Hgb 12.4, Hct 38.9, MCV 94.2, RDW 13.5, Plt Count 192, MPV 8.5, Gran % 47.7, Gran # 3.4, Lymphocytes % 41.3, Monocytes % 7.5, Eosinophils % 2.5, Basophils % 0.9, Lymphocytes # 3.0, Monocytes # 0.5, Eosinophils # 0.2, Basophils # 0.1, PUBS MCHC 31.8, MCH 30.0 Current Medication Orders Sig/Aleida Start time Last Medication Dose Route Stop Time Status Admin Multi-Ingredient GI 0 .STK-MED ONE 08/12 2017 DC Drug PO Multi-Ingredient GI 60 ML ONCE ONE 08/12 2015 DC 08/12 Drug PO 08/12 Sodium Chloride 10 ML PRN PRN 08/12 2015 AC IV 08/13 2015 Orders Procedure Date/time Status CHEST(2 VIEWS-NOT PORTABLE) 08/12 2016 Active IV SALINE LOCK 08/12 2016 Active CBC WITH AUTO DIFF 08/12 2016 Complete CARDIAC ENZYMES 08/12 2016 Complete CHEM 12 PROFILE 08/12 2016 Complete ELECTROCARDIOGRAM REQUEST 08/12 2006 Active CM/EKG 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 of ischemic chgs XRAY/CT/US XRAY/CT/US XRAY chest XR interpretation by reviewed by me Xray Results normal/NAD Departure Departure Time of Disposition 2103 Disposition DC Home or Self Care(routine) Clinical Impression Primary Impression: Gastritis Qualifiers: Gastritis type: unspecified gastritis Chronicity: unspecified Gastritis bleeding: presence of bleeding unspecified Qualified Code: K29.70 - Gastritis, unspecified, without bleeding Condition STABLE Referrals Jaren Whitley MD (Family) Patient Instructions DI for Gastritis Additional Instructions use meds and see pcp for follow up Discharge Counseling Counseled pt/family regarding diagnosis, test results, medications/RX, follow up needs Prescriptions Current Visit Scripts Pantoprazole Sodium (Protonix 40MG TAB) 40 MG PO DAILY #30 TAB ED Critical Care Critical Care No at [id number]
--- NOTE | 2017-08-12 21:02 | Emergency Room Report ---
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 N Clinical Suspician of Infection? N Mental Status: 1 - Regular (Normal Baseline) Sepsis Risk:Low Sepsis Risk Have you (or family members/close friends) recently traveled outside the [place]? N If Yes, where/when: Have you had exposure to infectious disease within the past month? TB? Other? Specify: Source patient, RN notes reviewed, family, EMS, intermediate records, old records Exam Limitations no limitations Comment pt with epigastric pain with no vomiting pt denied any sx at this time - pt with nl gxt in 01/23 - Cardiac Chest Pain Chest pain indicative of cardiac No Timing/Duration this evening Severity moderate ALLERGIES Coded Allergies: No Known Allergies (04/26/17) Home Medications Active Scripts Amoxicillin (Amoxicillin 500MG) 500 MG PO TID #30 CAP Prov: 06/28/17 Prednisone (Prednisone 5MG) 5 MG PO DIRECTED #39 TAB Prov: 06/28/17 Pantoprazole Sodium (Protonix 40MG TAB) 40 MG PO DAILY #30 TAB Ref 6 Prov: 09/02/15 ASPIRIN (Aspirin EC) 325 MG PO DAILY #30 Prov: 06/26/12 Reported Medications BENZTROPINE MESYLATE (COGENTIN 1MG TAB) 1 TAB PO BID Buspirone Hcl 10 TAB PO BID Nitroglycerin (Nitrostat 0.4MG (1/150 Gr) Tabs #25) 0.4 MG SL [id number] Baclofen (Baclofen 20MG) 1 TAB PO BID LOPERAMIDE HCL (Loperamide) 2 MG PO Q8HP DEXTROMETHORPHAN-GG (Guaifenesin Dm Syrup) 10 ML PO Q6HP CITALOPRAM HYDROBROMIDE (Citalopram HBr) 20 mg PO DAILY Lorazepam (Lorazepam 1MG) 1 MG PO TID Gabapentin (Gabapentin 100MG) 100 MG PO TID Allopurinol 100 MG PO BID Prochlorperazine Maleate 10 MG PO Q6HP PRN UNKNOWN Potassium Chloride (Klor-Con M20) 20 MEQ PO TID TRIAMTERENE/HYDROCHLOROTHIAZID (Triamterene-Hctz 75-50 MG Tab) 1 TAB PO DAILY Loratadine (Claritin 10MG) 10 MG PO DAILY Olanzapine (Zyprexa) 5 MG PO BID Acetaminophen (Tylenol XS 500MG) 1,000 MG PO Q6HP PRN PAIN Simethicone 30 ML PO Q 4 HOURS PRN INDIGESTION Lactulose (Lactulose) 1 DOSE PO DAILY NITROGLYCERIN (Nitrostat) 0.4 MG SL [id number] PRN CHEST PAIN Albuterol Sulfate (Proair Hfa) 1 PUFF IH Q4 HOURS PRN SOB Atorvastatin Calcium (Lipitor 10MG) 10 MG PO QHS History Medical History General CAD? No Angina: No [place]: No Hypertension? Yes Hyperlipidemia? No CHF? No DVT? No PE? No COPD? No Asthma? No Anemia? No GERD? Yes Gastric ulcers? No GI Bleed? No Hernia? No Thyroid Problems? No Hypothyroidism? No CVA? No Seizures? No Diabetes? No Insulin Dependent: No Insulin Pump: No Home FSBS? No Renal Insuffiency? No End Stage Renal Disease? No UTI? No Stones? No BPH? No GB Disease: Yes Nephritic Syndrome? No Asplenia? No Hepatitis? No Sickle Cell Disease? No Arthritis? Yes Migraines? No Cataracts? No Glaucoma? No MRSA? No HIV? No TB? No Anxiety? No Depression? No Cancer? No More? 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 Respiratory denies cough, denies shortness of breath, denies wheezing Cardiovascular denies chest pain, denies palpitations, denies syncope Gastrointestinal see HPI, abdominal pain, denies constipation, denies diarrhea, denies vomiting Genitourinary denies: dysuria, frequency, hesitancy, hematuria. Musculoskeletal denies back pain, denies joint pain, denies joint swelling, denies neck pain Skin denies rash Psychiatric/Neurological denies headache, denies seizure Physical Exam Vital Signs Vital Signs Date Time Temp Pulse Resp B/P Pulse O2 O2 Flow FiO2 Ox Delivery Rate 08/12 2059 98.1 68 20 158/93 95 08/12 2003 98.1 69 20 144/67 96 - WBC >12,000 or <4,000 or 10% bands? 2 or more SIRS Criteria Met? B/P:158/93 MAP:92 Creatinine >2.0? UA output<0.5ml/kg/hr for 2 hrs? Platelet count >100,000? Lactate >2.0mmol/1? INR >1.2 or PTT > than 60 sec? Evidence of Organ Dysfunction? Provider documented clinical suspician of infection? N Sepsis Criteria Count: 1 Sepsis Risk: Low Sepsis Risk General Appearance no apparent distress Eye Exam - bilateral eye PERRL, bilateral eye EOMI Ear, Nose, Throat normal ENT inspection Neck supple Respiratory Status No: respiratory distress. Lung Sounds bilateral: lungs clear. Cardiovascular regular rate/rhythm, systolic murmur Peripheral Pulses Pulses normal No Gastrointestinal soft, no guarding, no rebound Back no CVA tenderness Extremities normal inspection Strength 4 Upper Ext (L), 4 Upper Ext (R), 4 Lower Ext (L), 4 Lower Ext (R) Neurologic alert, doctor of nurse anesthesia practice II-XII nml as tested Reflexes Reflexes normal No Mental status normal mood/affect Skin intact Medical Decision Making LABS/Meds/Orders Pt receiving controlled substance in ED? No Results/Orders Laboratory Tests 08/12/17 0600: Sodium 140, Potassium 3.6, Chloride 104, Carbon Dioxide 27, BUN 12, Creatinine 0.7, Estimated Creat Clear 95, Estimated GFR (MDRD) 82, Glucose 100, Calcium 8.8 , Total Bilirubin 0.2, AST 13 L, ALT 32, Alkaline Phosphatase 116, Creatine Kinase 56, CK-MB (CK-2) Rel Index 1.1, CK and CKMB Interp 0.6, Troponin I < 0.02 , Total Protein 7.0, Albumin 3.7, Globulin 3.3 H, Albumin/Globulin Ratio 1.1, WBC 7.2, RBC 4.13 L, Hgb 12.4, Hct 38.9, MCV 94.2, RDW 13.5, Plt Count 192, MPV 8.5, Gran % 47.7, Gran # 3.4, Lymphocytes % 41.3, Monocytes % 7.5, Eosinophils % 2.5, Basophils % 0.9, Lymphocytes # 3.0, Monocytes # 0.5, Eosinophils # 0.2, Basophils # 0.1, PUBS MCHC 31.8, MCH 30.0 Current Medication Orders Sig/Aleida Start time Last Medication Dose Route Stop Time Status Admin Multi-Ingredient GI 0 .STK-MED ONE 08/12 2017 DC Drug PO Multi-Ingredient GI 60 ML ONCE ONE 08/12 2015 DC 08/12 Drug PO 08/12 Sodium Chloride 10 ML PRN PRN 08/12 2015 AC IV 08/13 2015 Orders Procedure Date/time Status CHEST(2 VIEWS-NOT PORTABLE) 08/12 2016 Active IV SALINE LOCK 08/12 2016 Active CBC WITH AUTO DIFF 08/12 2016 Complete CARDIAC ENZYMES 08/12 2016 Complete CHEM 12 PROFILE 08/12 2016 Complete ELECTROCARDIOGRAM REQUEST 08/12 2006 Active CM/EKG CM/educational audiologist Rhythm Normal Sinus Rhythm EKG no evid. of ischemic chgs XRAY/CT/US XRAY/CT/US XRAY chest XR interpretation by reviewed by me Xray Results normal/NAD Departure Departure Time of Disposition 2103 Disposition DC Home or Self Care(routine) Clinical Impression Primary Impression: Gastritis Qualifiers: Gastritis type: unspecified gastritis Chronicity: unspecified Gastritis bleeding: presence of bleeding unspecified Qualified Code: K29.70 - Gastritis, unspecified, without bleeding Condition STABLE Referrals Jaren Whitley MD (Family) Patient Instructions DI for Gastritis Additional Instructions use meds and see pcp for follow up Discharge Counseling Counseled pt/family regarding diagnosis, test results, medications/RX, follow up needs Prescriptions Current Visit Scripts Pantoprazole Sodium (Protonix 40MG TAB) 40 MG PO DAILY #30 TAB ED Critical Care Critical Care No at [id number]
[2017-08-12 21:44] VITALS: BP 134/85
--- NOTE | 2017-08-13 07:41 | RADIOLOGY REPORT PS360 ---
CHEST(2 VIEWS-NOT PORTABLE) COMPARISON: PA and lateral chest 02/22/2017 HISTORY: Chest pain and epigastric pain TECHNIQUE: PA and lateral chest FINDINGS: The lung dc are well expanded and appear clear of infiltrate. The cardiac silhouette and vascularity are normal. Is minimal blunting of right costophrenic angle but this was noted previously and this is likely scarring. There are small calcified left hilar nodes and is a calcified granuloma at the right base. IMPRESSION: Nonacute chest findings
--- OUTSIDE RECORDS SUMMARY | 2017-08-20 17:39 | External Medical Summary Rpt | CCD ---
Author Author , TRACEY Organization [facility] Address Unknown Phone [email or web address] Care Team Providers Care Mill Tender Name Role Phone ALFARIS MOH, ALFARIS Unavailable Unavailable MOH GABI LYNCH, Unavailable Unavailable GABI LYNCH BEINEKE ERUM, BEINEKE Unavailable Unavailable ERUM BESSON LYDIA, BESSON Unavailable Unavailable LYDIA BESSON LYDIA, BESSON Unavailable Unavailable LYDIA BESSON, ADRIAN A, Unavailable Unavailable BESSON, ADRIAN A MURILLO, MURILLO Unavailable Unavailable MURILLO ALL, MURILLO ALL Unavailable Unavailable BRAUDIS JAM, BRAUDIS Unavailable Unavailable JAM BRAUDIS JAM, BRAUDIS Unavailable Unavailable JAM [facility] Unavailable Unavailable SERVICE, [facility] Unavailable Unavailable SERVICE, [facility] AMBULANCE SERVICE [facility] CAB, [facility] Unavailable Unavailable [facility] Unavailable Unavailable LA, [...] Unavailable ANGY FOLLMER, ANGY S, Unavailable Unavailable FOLLTERRI, ANGY S EDENILSON HUNTER FORD, Unavailable Unavailable TAWNY HESS Unavailable Unavailable TAWNY ANIRUDH, TAWNY Unavailable Unavailable ANIRUDH ALEX HECTOR, Unavailable Unavailable ALEX HECTOR [facility] Unavailable Unavailable INC, [facility] Unavailable Unavailable HOSPITAL P, [facility], Unavailable Unavailable [facility] DMITRIY TREVIZO, Unavailable Unavailable DMITRIY TREVIZO [facility]BER Unavailable Unavailable [facility] Unavailable Unavailable [facility], [facility] MANDY REGGIE, MANDY Unavailable Unavailable REGGIE [facility] Unavailable Unavailable [facility], [facility] Unavailable Unavailable [facility], [facility] Unavailable Unavailable [facility], [facility] Un[facility], [facility] JR JR DWI, JR Unavailable Unavailable JR DWI JR JR DWI, JR Unavailable Unavailable JR DWI JR, SHIRA E, Unavailable Unavailable JR, SHIRA E [facility] Unavailable Unavailable 11, [facility] 11 [facility] Unavailable Unavailable ACTION, [facility] Unavailable Unavailable SERVICES, [facility] MCKEMIE JR MAXIM, Unavailable Unavailable MCKEMIE JR MAXIM MCKEMIE JR MAXIM, Unavailable Unavailable MCKEMIE JR MAXIM ERIC GILLETTE, Unavailable Unavailable ER[facility] Unavailable Unavailable [facility] GABRIELLA CARTAGENA, Unavailable Unavailable GABRIELLA CART[facility], [...] Unavailable LISETTE MAXIM, LISETTE Unavailable Unavailable MAXIM SOTINGEANU, Unavailable Unavailable [facility] CASTILLO, Unavailable Unavailable CASTILLO [facility], Unavailable Unavailable [facility] SHALA, SHALA Unavailable Unavailable [facility] Unavailable Unavailable ASSIST, [facility], Unavailable Unavailable [facility] WEHRMAN III MAXIM, Unavailable Unavailable WEHRMAN III MAXIM WEHRMAN III MAXIM, Unavailable Unavailable WEHRMAN III MAXIM WEHRMAN IIILUISANA, Unavailable Unavailable SHLOMOHRANA LAURA IIILUISANA, MYRON MORENO Unavailable Unavailable Purpose Continuity of Care Document - 12-15-2007 through 2016 Problems Code Diagnosis DOS Provider Status I10 ESSENTIAL 06-08-2017 [facility] HYPERTENSIO PLL[facility] N R0789 OTHER CHEST 06-08-2017 [facility] K219 GASTRO-ESOP 04-26-2017 [facility] DISEASE INC WITHOUT ESOPHAGITIS R079 CHEST PAIN 04-26-2017 [facility] Z720 TOBACCO USE 04-26-2017 [facility] R918 OTHER 04-08-2017 [facility] NONSPECIFIC [facility] ABNORMAL IMAGING ASS FINDING OF LUNG FIELD C00162 OTHER LONG 04-08-2017 [facility] P DRUG THERAPY D649 ANEMIA 03-12-2017 [facility] I498 OTHER 02-22-2017 [facility] SPECIFIED AMBULANCE CARDIAC SERVICE ARRHYTHMIAS J9811 ATELECTASIS 02-22-2017 [facility] I208 OTHER FORMS 01-21-2017 [facility] PECTORIS GROUP R0602 SHORTNESS 01-21-2017 [facility] OF BREATH PHYSICIANS GROUP R069 UNSPECIFIED 01-21-2017 [facility] PH[facility]ANS ABNORMALITI GROUP ES OF BREATHING R251 TREMOR 01-17-2017 [facility]IED [facility], PLLC R4182 ALTERED 01-17-2017 [facility] MENTAL AMBULANCE STATUS SERVICE UNSPECIFIED I209 ANGINA 01-13-2017 [facility] PECTORIS [facility] UNSPECIFIED INC R0600 DYSPNEA 01-13-2017 [facility] UNSPECIFIED [facility] INC V64723 PAIN IN 07-23-2016 [facility] SE E876 HYPOKALEMIA 07-05-2016 [facility] K209 ESOPHAGITIS 07-05-2016 [facility] UNSPECIFIED INC K5900 CONSTIPATIO 07-05-2016 [facility] N [facility], UNSPECIFIED PLL N200 CALCULUS OF 07-05-2016 [facility] R1084 GENERALIZED 07-05-2016 [facility] ABDOMINAL [facility] PAIN [facility] ASS R1110 VOMITING 07-05-2016 [facility] R112 NAUSEA WITH 07-05-2016 [facility], UNSPECIFIED PLL B351 TINEA 05-28-2016 BRAUDIS JAM UNGUIUM V52492 UNS 05-28-2016 BRAUDIS JAM ATHEROSCLER [place] GRANDE ART EXTREM BILATERAL LEGS Q64104 PAIN IN 05-28-2016 BRAUDIS JAM RIGHT TOES [id number] PAIN IN 05-28-2016 BRAUDIS JAM LEFT TOES J189 PNEUMONIA 05-01-2016 [facility] UNSPECIFIED [facility] ORGANISM IMAGING ASS J984 OTHER 05-01-2016 [place] DISORDERS MEDICAL OF LUNG IMAGING ASS K210 GASTRO-ESOP 05-01-2016 [facility] P DISEASE W/ ESOPHAGITIS R05 COUGH 05-01-2016 [facility] R1010 UPPER 05-01-2016 [facility] ABDOMINAL AMBULANCE PAIN SERVICE UNSPECIFIED R109 UNSPECIFIED 10-24-2015 [facility] ABDOMINAL PHYSICIANS PAIN ASSIST R69 ILLNESS 10-24-2015 [facility] UNSPECIFIED TRANSPORTAT ION SER 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 [facility] CURR PHYSICIANS NON-STEROID ASSIST AL&ANTI-INF LAMMATORIES J219 ACUTE 10-09-2015 [facility] BRONCHIOLIT [facility] IS INC UNSPECIFIED J441 CHRONIC 10-09-2015 [facility] PULMONARY INC DZ W/EXACERBAT ION E119 TYPE 2 08-22-2015 [facility] DIABETES MOBILE MELLITUS DIAGNOSTIC WITHOUT SE COMPLICATIO NS C60007 PAIN IN 08-22-2015 [facility] LEFT HIP [facility] V19123 PAIN IN 08-22-2015 [facility] LEFT KNEE [facility]ICAL IM[facility] ASS I48299 PAIN IN 08-22-2015 [facility] LEFT THIGH [facility] ASS Q17413T UNSPECIFIED 08-22-2015 [facility] INJURY MOBILE LEFT HIP DIAGNOSTIC INITIAL SE ENCOUNTER L851 ACQ 08-21-2015 NO[facility] MORENO KERATOSIS KERATODERMA PALMARIS ET PLANTARIS 85507 ABDOMINAL 05-30-2015 [facility] PAIN, MEDICAL EPIGASTRIC IMAGING ASS 54951 OTHER 05-21-2015 [place] DYSPNEA AND MEDICAL [place]AG[place] [address] CHEST PAIN 05-21-2015 [facility] UNSPECIFIED [facility] IM[facility]ING ASS 25207 05-21-2015 [facility] TRANSPORTAT ION SER 5180 PULMONARY 05-07-2015 [facility] COLLAPSE [facility] 4019 UNSPECIFIED 04-06-2015 [facility] P N 18221 DIVERTICULO 03-25-2015 [place] SIS OF MEDICAL COLON IMAGING ASS 1101 DERMATOPHYT 11-27-2014 NOEMI MORENO OSIS OF NAIL 14672 ATHEROSCLER 11-27-2014 NOEMI MORENO OSIS [place] ART EXTREMITIES UNSPEC 7011 ACQUIRED 11-27-2014 NOEMI MORENO KERATODERMA 7295 PAIN IN 11-27-2014 NOEMI MORENO SOFT TISSUES OF LIMB 7862 COUGH 08-16-2014 [facility] 72287 NONSPEC 08-09-2014 [facility] REACT MOBILE TUBERCULIN DIAGNOSTIC SKIN TEST SE W/O ACTIVE TB 515 POSTINFLAMM 06-05-2014 [facility] ATORY [facility]ICAL PULMONARY IMAGING ASS FIBROSIS 7851 PALPITATION 06-05-2014 [facility] S [facility] 496 CHRONIC 05-27-2014 [facility] AIRWAY MEDICAL OBSTRUCTION IMAGING ASS NEC 6101 DIFFUSE 05-03-2014 [facility]Y MASTOPATHY PHYS 11858 MASTODYNIA 05-03-2014 JR JR DWI 4928 OTHER 04-25-2014 [facility] EMPHYSEMA [facility] 7866 SWELLING, 04-25-2014 [facility] [place], OR [facility] LUMP IN INC CHEST 18051 OTHER 04-25-2014 [facility] NONSPECIFIC MEDICAL ABNORMAL IMAGING ASS FINDING OF LUNG FIELD 2768 HYPOPOTASSE 04-05-2014 WEHR[facility] III PEG MAXIM 18297 TRANSIENT 02-17-2014 [facility] FLA VISUAL LOSS 89735 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 96917 PSYCHOPHYSI 02-16-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 LYDIA MANSI VISUAL DISTURBANCE S 96274 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-16-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 LYDIA CEREBRAL ARTERY OCCLUSION W/INFARCT 72783 OSTEOARTHRO 09-02-2013 [facility] JAM SIS UNSPEC WHETHER GEN/LOC LOWER LEG 10985 PAIN IN 09-02-2013 [facility] JOINT, [facility] LOWER LEG INC 4660 ACUTE 10-22-2012 JR JR BRONCHITIS DWI 490 BRONCHITIS 10-22-2012 LISETTE MAXIM NOT SPECIFIED ACUTE OR CHRONIC 7802 SYNCOPE AND 08-04-2012 [facility] 24317 OTHER CHEST 08-03-2012 B[facility] LYDIA PAIN 2749 GOUT, 06-25-2012 [facility] LYDIA UNSPECIFIED 01022 SHORTNESS 06-25-2012 [facility] LYDIA OF BREATH 4111 INTERMEDIAT 05-28-2012 LISETTE MAXIM E CORONARY SYNDROME 4139 OTHER AND 05-28-2012 [facility] DANIEL UNSPECIFIED MAXIM ANGINA PECTORIS 43326 OTHER 05-28-2012 [place] DISEASES OF MEDICAL LUNG NOT IMAGING ASS ELSEWHERE CLASSIFIED 5990 URINARY 03-12-2011 [facility] TRACT [facility] INFECTION LA SITE NOT SPECIFIED 11146 OTHER 03-12-2011 [facility] ABNORMAL PHYSICIANS GLUCOSE LA 9597 INJURY 03-12-2011 [facility] OTHER&UNSPE PHYSICIANS CIFIED KNEE LA LEG ANKLE&FOOT 5589 OTH&UNSPEC 02-05-2011 [facility] NONINFECTIO [facility]P US INC GASTROENTER ITIS&COLITI S 93586 OTHER 02-05-2011 [facility] MALAISE AND AMBULANCE FATIGUE SERVICE 18795 NAUSEA WITH 02-05-2011 [facility] 50083 DIARRHEA 02-05-2011 [facility] V5869 LONG-TERM 02-05-2011 [facility] (CURRENT) [facility] USE OF INC OTHER MEDICATIONS 700 CORNS AND 01-27-2011 [facility] 8930 OPEN WOUND 01-06-2011 [facility] MENTION COMPLICATIO N 7350 HALLUX 12-16-2010 [facility] 7354 OTHER 12-16-2010 [place] [facility] FOOT PROFESSIONA [place] 8931 OPEN WOUND 12-16-2010 [facility] [place] [place] [address] HEAD 04-03-2010 [facility] INJURY, AMBULANCE UNSPECIFIED SERVICE 920 CONTUSION 04-02-2010 [facility] OF FACE EMERGENCY SCALP AND SERVICES [facility] EXCEPT [facility] EYE E8889 UNSPECIFIED 04-02-2010 [facility] 5210 DENTAL 03-04-2010 [facility] 7245 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-15-2010 [facility] BACKACHE AMBULANCE SERVICE 49548 ABDOMINAL 01-31-2010 [facility] PA[facility], MEDICAL UNSPECIFIED IMAGING SITE ASSOCIATES 36775 ABDOMINAL 01-31-2010 [facility] PAIN, AMBULANCE GENERALIZED SERVICE 52586 ULCER OF 01-30-2010 FOLLMER ANGY OTHER PART OF FOOT 54629 UNSPECIFIED 01-26-2010 [facility] PERIPHERAL EM[facility]Y VERTIGO SERVICES [facility] 7804 DIZZINESS 01-26-2010 [facility] AND [facility] GIDDINESS IMAGING [facility]OC[facility]ATES 7840 HEADACHE 01-26-2010 [facility] AMBULANCE SERVICE 4619 ACUTE 12-02-2009 [facility] SINUSITIS, [facility] PROF SERV 94463 POISONING 09-21-2009 [facility] N EMERGENCY AND RELATED PHYS INC NARCOTICS OTHER V0481 NEED 09-17-2009 [facility] LYNCHACTCandy Guzmán VACCINATION &INOCULATIO N FLU 21651 HEMATURIA 07-27-2009 [facility] UNSPECIFIED AMBULANCE SERVICE 93430 ABDOMINAL 07-27-2009 [facility] PAIN OTHER EMERGENCY SPECIFIED SERVICES SITE ASSOCIATES 75117 PAIN IN 04-19-2009 BRITTNEY, JOINT, [facility]AYLEY ANKLE AND FOOT 6829 CELLULITIS 02-23-2009 CRIS, AND ABSCESS GABI Boateng OF UNSPECIFIED SITE 5253 RETAINED 10-18-2008 [facility] DENTAL ROOT FOR ORAL&MAXILL OFACIAL SURGERY 76636 PAIN IN 07-15-2008 [facility] JOINT, AMBULANCE FOREARM SERVICE 45646 SPRAIN AND 07-15-2008 [place] STRAIN OF MEDICAL UNSPECIFIED IMAGING SITE OF ASSOCIATES WRIST E8497 PLACE OF 07-15-2008 [place] OCCURRENCE MEDICAL RESIDENTIAL IMAGING ASSOCIATES INSTITUTION E927 OVEREXERTIO 07-15-2008 [place] N&STRENUOUS MEDICAL &REPETITIVE IMAGING ASSOCIATES MVMNTS/LOAD S 40031 OSTEOARTHRO 06-23-2008 Agusto LYNCH INVLV MX GABI W SITES BUT NOT SPEC GEN Allergies, Adverse Reactions, Alerts Clinical Alert Notifications Alert Diabetes: no A1C in the last 6 months Diabetes: no eye exam in the last 365 days Diabetes: no influenza vaccine in the last 365 days Diabetes: no lipid panel in the last 365 days Diabetes: no urine protein screening in the last 365 days Medications Na ND Rx Da Fi Fi Am Da Di Ph RX Ph St me C No te ll ll ou ys ag ar # ys at rm s nt no ma ic us Or Da si cy ia de te s n re d LO 69 09 10 42 14 00 ME Ac RA 31 -1 -0 .0 00 D ti ZE 50 1- 6- 00 14 CA ve PA 90 20 20 93 RE M 50 17 17 05 1 5 99 PH MG AR MA TA CY BL ET LO 69 08 09 42 14 00 ME Ac RA 31 -2 -2 .0 00 D ti ZE 50 8- 2- 00 14 CA ve PA 90 20 20 83 RE M 50 17 17 88 1 5 19 PH MG AR MA TA CY BL ET TR 00 09 09 30 30 00 ME Ac IA 78 -0 -2 .0 00 D ti MT 15 1- 2- 00 14 CA ve ER 06 20 20 86 RE EN 70 17 17 69 E- 5 03 PH HC AR TZ MA CY 75 -5 0 MG TA B AM 65 08 09 3. 1 00 ME Ac OX 86 -3 -2 00 00 D ti IC 20 0- 2- 0 14 CA ve IL 01 20 20 86 RE LI 70 17 17 18 N 5 75 PH 50 AR 0 MA MG CY CA PS UL E LO 00 09 09 30 30 00 ME Ac RA 78 -0 -2 .0 00 D ti TA 15 2- 2- 00 14 CA ve DI 07 20 20 87 RE NE 70 17 17 17 1 04 PH 10 AR MA MG CY TA BL ET AM 16 08 09 30 10 00 ME Ac OX 71 -2 -1 .0 00 D ti IC 40 1- 5- 00 14 CA ve IL 29 20 20 80 RE LI 90 17 17 65 N 4 90 PH 50 AR 0 MA MG CY CA PS UL E PA 00 08 09 30 30 00 ME Ac NT 09 -2 -1 .0 00 D ti OP 30 5- 5- 00 14 CA ve RA 01 20 20 82 RE ZO 29 17 17 69 LE 8 04 PH AR SO MA D CY DR 40 MG TA B PO 62 08 09 90 30 00 ME Ac TA 03 -2 -1 .0 00 D ti SS 70 3- 5- 00 14 CA ve IU 99 20 20 71 RE M 91 17 17 52 CL 0 88 PH AR ER MA CY 20 ME Q TA BL ET GA 65 08 09 42 14 00 ME Ac BA 86 -2 -1 .0 00 D ti PE 20 3- 5- 00 14 CA ve NT 19 20 20 81 RE IN 80 17 17 36 1 11 PH 10 AR 0 MA MG CY CA PS UL E 00 08 09 30 30 00 ME Ac PI 60 -2 -1 .0 00 D ti RI 30 1- 5- 00 14 CA ve N 02 20 20 80 RE EC 63 17 17 53 2 56 PH 81 AR MA MG CY TA BL ET BU 00 08 09 60 30 00 ME Ac SP 09 -1 -0 .0 00 D ti IR 30 8- 8- 00 14 CA ve ON 05 20 20 78 RE E 40 17 17 64 HC 1 48 PH L AR 10 MA CY MG TA BL ET BA 00 08 09 60 30 00 ME Ac CL 17 -1 -0 .0 00 D ti OF 24 9- 8- 00 14 CA ve EN 09 20 20 79 RE 78 17 17 11 20 0 66 PH AR MG MA CY TA BL ET LO 69 08 09 42 14 00 ME Ac RA 31 -1 -0 .0 00 D ti ZE 50 4- 8- 00 14 CA ve PA 90 20 20 76 RE M 50 17 17 09 1 5 34 PH MG AR MA TA CY BL ET GA 65 08 09 42 14 00 ME Ac BA 86 -1 -0 .0 00 D ti PE 20 0- 1- 00 14 CA ve NT 19 20 20 74 RE IN 80 17 17 57 1 63 PH 10 AR 0 MA MG CY CA PS UL E CI 13 08 09 30 30 00 ME Ac TA 66 -0 -0 .0 00 D ti LO 80 7- 1- 00 14 CA ve MS 01 20 20 72 RE AM 00 17 17 69 5 20 PH HB AR R MA 20 CY MG TA BL ET LO 69 07 08 42 14 00 ME Ac RA 31 -3 -2 .0 00 D ti ZE 50 1- 5- 00 14 CA ve PA 90 20 20 68 RE M 50 17 17 07 1 5 30 PH MG AR MA TA CY BL ET OL 60 08 08 30 30 00 ME Ac AN 50 -0 -2 .0 00 D ti ZA 53 5- 5- 00 14 CA ve PI 11 20 20 71 RE NE 30 17 17 21 3 46 PH 10 AR MA MG CY TA BL ET BE 00 08 08 60 30 00 ME Ac NZ 83 -0 -2 .0 00 D ti TR 21 4- 5- 00 14 CA ve OP 08 20 20 70 RE IN 10 17 17 64 E 0 40 PH ME AR S MA 1 CY MG TA BL ET LO 00 08 08 30 30 00 ME Ac RA 78 -0 -2 .0 00 D ti TA 15 4- 5- 00 14 CA ve DI 07 20 20 71 RE NE 70 17 17 74 1 80 PH 10 AR MA MG CY TA BL ET GA 65 07 08 42 14 00 ME Ac BA 86 -2 -1 .0 00 D ti PE 20 8- 8- 00 14 CA ve NT 19 20 20 66 RE IN 80 17 17 71 1 47 PH 10 AR 0 MA MG CY CA PS UL E 00 07 08 30 30 00 ME Ac PI 60 -2 -1 .0 00 D ti RI 30 6- 8- 00 14 CA ve N 02 20 20 65 RE EC 63 17 17 22 2 62 PH 81 AR MA MG CY TA BL ET BU 00 07 08 60 30 00 ME Ac SP 09 -1 -1 .0 00 D ti IR 30 9- 8- 00 14 CA ve ON 05 20 20 60 RE E 40 17 17 94 HC 1 20 PH L AR 10 MA CY MG TA BL ET LO 00 07 08 42 14 00 ME Ac RA 60 -1 -1 .0 00 D ti ZE 34 7- 8- 00 14 CA ve PA 24 20 20 59 RE M 73 17 17 99 1 2 41 PH MG AR MA TA CY BL ET AT 60 07 08 30 30 00 ME Ac OR 50 -2 -1 .0 00 D ti VA 52 7- 8- [address] 57 20 20 66 RE AT 80 17 17 04 IN 9 89 PH AR 10 MA CY MG TA BL ET BA 00 07 08 60 30 00 ME Ac CL 17 -2 -1 .0 00 D ti OF 24 1- 8- 00 14 CA ve EN 09 20 20 62 RE 78 17 17 69 20 0 48 PH AR MG MA CY TA BL ET MS 59 07 08 28 7 00 ME Ac OC 74 -1 -0 .0 00 D ti HL 60 2- 4- 00 14 CA ve OR 11 20 20 58 RE PE 50 17 17 26 RA 6 95 PH ZI AR NE MA CY 10 MG TA B NI 43 07 08 25 15 00 ME Ac TR 59 -1 -0 .0 00 D ti OG 80 2- 4- 00 14 CA ve LY 43 20 20 58 RE CE 61 17 17 26 RI 1 93 PH N AR 0. MA 4 CY MG TA BL ET SL LO 00 07 08 21 7 00 ME Ac PE 09 -1 -0 .0 00 D ti RA 30 2- 4- 00 14 CA ve OK 31 20 20 58 RE DE 10 17 17 26 2 1 94 PH AR MG MA CY CA PS UL E LO 00 [...] 80 7- 8- 00 14 CA ve MS 01 20 20 53 RE AM 00 [...] CY MG TA BL ET BA 00 06 07 60 30 00 ME Ac CL 17 -2 -1 .0 00 D ti OF 24 2- 4- 00 14 CA ve EN 09 20 20 44 RE 78 17 17 43 20 0 37 PH AR MG MA CY TA BL ET LO 00 06 07 42 14 00 ME Ac RA 60 -2 -1 .0 00 D ti ZE 34 0- 4- 00 14 CA ve PA 24 20 20 42 RE M 73 17 17 52 1 2 58 PH MG AR MA TA CY BL ET GA 65 06 07 30 [...] 80 8- 7- 00 14 CA ve MS 01 20 20 35 RE AM 00 [...] D CY DR 40 MG TA B MS 59 06 07 28 7 00 ME [...] TA BL ET LO 00 06 07 30 30 00 ME Ac RA 78 -0 -0 .0 00 D ti TA 15 5- 7- 00 14 CA ve DI 07 20 20 32 RE NE 70 17 17 96 1 11 PH 10 AR MA MG CY TA BL ET AT 60 05 06 [...] MA TA CY BL ET BA 00 05 06 60 30 00 ME Ac CL 17 -2 -1 .0 00 D ti OF 24 5- 6- 00 14 CA ve EN 09 20 20 24 RE 78 17 17 70 20 0 73 PH AR MG MA CY TA BL ET BE 00 05 06 60 [...] MG TA B LO 00 05 06 42 14 00 ME Ac RA 60 -1 -0 .0 00 D ti ZE 34 2- 2- 00 14 CA ve PA 24 20 20 18 RE M 73 17 17 05 1 2 27 PH MG AR MA TA CY BL ET CI 65 05 06 30 30 00 ME Ac TA 86 -1 -0 .0 00 D ti LO 20 2- 2- 00 14 CA ve MS 00 20 20 18 RE AM 60 17 17 35 5 73 PH HB AR R MA 20 CY MG TA BL ET PO 63 05 06 90 30 00 ME Ac TA 73 -1 -0 .0 00 D ti SS 90 2- 2- 00 14 CA ve IU 44 20 20 18 RE M 71 17 17 35 CL 0 66 PH AR ER MA CY 20 ME Q TA BL ET OL 60 05 06 30 30 00 ME Ac AN 50 -1 -0 .0 00 D ti ZA 53 2- 2- 00 14 CA ve PI 11 20 20 18 RE NE 30 17 17 35 3 72 PH 10 AR MA MG CY TA BL ET 00 05 05 30 [...] AR MA MG CY TA BL ET GA 65 04 05 90 30 00 ME Ac BA 86 -0 -0 .0 00 D ti PE 20 7- 5- 00 13 CA ve NT 19 20 20 99 RE IN 80 17 17 45 1 72 PH 10 AR 0 MA MG CY CA PS UL E PO 62 04 05 90 30 00 [...] 20 4- 5- 00 14 CA ve MS 00 20 20 04 RE AM 60 [...] CY MG TA BL ET TR 00 04 05 30 30 00 [...] DR 40 MG TA B BU 00 04 05 60 30 00 [...] 00 D ti AL 00 3- 7- 13 CA ve EX 12 20 20 88 RE IN 20 17 17 50 2 04 PH 50 AR 0 MA MG CY CA PS UL E CI 65 03 04 30 30 00 ME Ac TA 86 -1 -0 .0 00 D ti LO 20 7- 7- 00 13 CA ve MS 00 20 20 90 RE AM 60 [...] CY 20 ME Q TA BL ET AL 00 03 04 60 30 00 ME Ac LO 37 -1 -0 .0 00 D ti PU 80 5- 7- 13 CA ve RI 13 20 20 89 RE NO 70 17 17 25 L 1 80 PH 10 AR 0 MA MG CY TA BL ET PA 00 03 04 30 30 00 ME Ac NT 09 -1 -0 .0 00 D ti OP 30 4 7 13 CA ve RA 01 20 20 88 RE ZO 29 17 17 22 LE 8 81 PH AR SO MA D CY DR 40 MG TA B TR 00 03 04 30 30 00 ME Ac IA 78 -1 -0 .0 00 D ti MT 11 4 7 13 CA ve ER 00 20 20 88 RE EN 80 17 17 22 E- 5 64 PH HC AR TZ MA CY 75 -5 0 MG TA B 00 03 03 30 30 00 ME [...] CY MG TA BL ET OL 60 03 03 [...] TA CY BL ET BE 00 03 03 60 [...] MA CY MG TA BL ET 00 02 03 30 [...] 20 7- 0- 00 13 CA ve MS 00 20 20 76 RE AM 60 [...] D CY DR 40 MG TA B AL 00 02 03 60 30 00 ME Ac LO 37 -1 -1 .0 00 D ti PU 80 4- 0- 00 13 CA ve RI 13 20 20 74 RE NO 70 17 17 09 L 1 89 PH 10 AR 0 MA MG CY TA BL ET BE 00 02 02 60 30 00 ME Ac NZ 60 -0 -2 .0 00 D ti TR 32 1- 4- 00 13 CA ve OP 43 20 20 68 RE IN 43 17 17 08 E 2 90 PH ME AR S MA 1 CY MG TA BL ET BA 00 01 02 60 30 00 ME Ac CL 17 -3 -2 .0 00 D ti OF 24 0- 4- 00 13 CA ve EN 09 20 20 66 RE 78 17 17 60 20 0 84 PH AR MG MA CY TA BL LL ET C OL 60 02 02 5. 5 00 ME Ac AN 50 -0 -2 00 00 D ti ZA 53 3- 4- 0 13 CA ve PI 11 20 20 69 RE NE 30 17 17 59 3 34 PH 10 AR MA MG CY TA BL ET GA 65 02 02 [...] MG CY TA BL ET LO 00 01 02 42 14 00 ME Ac RA 60 -2 -1 .0 00 D ti ZE 34 6- 7- 00 13 CA ve PA 24 20 20 65 RE M 73 17 17 43 1 2 11 PH MG AR MA TA CY BL ET LL C AL 00 01 02 60 30 [...] 80 0- 7- 00 13 CA ve MS 01 20 20 62 RE AM 00 [...] -5 LL 0 C MG TA B BU 00 01 02 60 30 00 ME Ac SP 09 -0 -0 .0 00 D ti IR 30 9- 3- 00 13 CA ve ON 05 20 20 56 RE E 40 17 17 73 HC 1 27 PH L AR 10 MA CY MG LL TA C BL ET OL 60 11 09 30 30 [...] TA C BL ET GA 67 01 01 90 30 00 ME Ac BA [...] BL ET LL C BA 00 12 01 60 30 00 ME Ac CL 17 -3 -2 .0 00 D ti OF 24 1- 0- 00 13 CA ve EN 09 20 20 52 RE 78 16 17 58 20 0 78 PH AR MG MA CY TA BL LL ET C CI 13 12 01 30 30 00 ME Ac TA 66 -2 -1 .0 00 D ti LO 80 1- 3- 00 13 CA ve MS 01 20 20 47 RE AM 00 16 17 56 5 86 PH HB AR R MA 20 CY MG LL C TA BL ET TR 00 12 01 30 30 00 ME Ac IA 78 -1 -0 .0 00 D ti MT 11 6 00 13 CA ve ER 00 20 20 45 RE EN 80 16 17 37 E- 5 49 PH HC AR TZ MA CY 75 -5 LL 0 C MG TA B PA 00 12 01 30 30 00 ME Ac NT 09 -1 -0 .0 00 D ti OP 30 13 CA ve RA 01 20 20 45 RE ZO 29 16 17 37 LE 8 66 PH AR SO MA D CY DR LL 40 C MG TA B LO 00 12 01 42 14 00 ME Ac RA 60 -1 -0 .0 00 D ti ZE 34 13 CA ve PA 24 20 20 45 RE M 73 16 17 56 1 2 45 PH MG AR MA TA CY BL ET LL C 00 12 30 30 00 ME Ac PI 53 -1 -0 .0 00 D ti RI 63 2- 9- 00 13 CA ve N 31 20 20 43 RE EC 30 16 17 48 1 31 PH 32 AR 5 MA MG CY TA LL BL C ET 00 06 09 3 30 30 ME [...] 10 C % CR EA M 00 10 01 03 20 3 ME 39 AR Ac 18 -0 -1 .0 D 67 NO ti 28 7- 4- 00 CA 31 LD ve 44 20 20 RE 4 78 09 10 RI 9 PH CH AR AR MA D CY W LL C TH 00 11 01 02 30 30 [...] 00 1. 1 ME 36 AR Ac MS 78 -1 -0 00 D 71 NO [...] 10 C % CR EA M 00 03 04 00 30 30 ME 26 No Ac 06 -1 -1 .0 D 10 t ti 76 1- 7- 00 CA 43 Av ve 07 20 20 RE 6 ai 03 08 08 la 0 PH bl AR e MA CY LL C 00 12 04 02 20 3 ME [...] Procedures Procedure DOS Code Location Performer Comment PATIENT [id number] KENA STEPHENSON NOT 7 [facility] D/T ACTIVE DX HYPERTENS ION ECG [id number] KENA STEPHENSON ROUTINE 7 PHYSICIAN [facility] W/LEAST 12 LDS I&R ONLY ECG [id number] KENA JAMES ROUTINE 7 PHYSICIAN ECG [facility] W/LEAST 12 LDS I&[place] [address] [facility] QUANT[facility]AT [facility] INC SALONI BLOOD 72767 [facility] COUNT 7 [facility] COMPLETE INC INC AUTO&AUTO DIFRNTL WBC ECG 05351 [facility] ECG INC INC W/LEAST 12 LDS TRCG ONLY W/O I&R PATIENT [id number] KENA JAMES NOT 7 [facility] D/T ACTIVE DX HYPERTENS ION COLLECTIO 95180 [facility] N VENOUS 7 [facility] BLOOD INC INC VENIPUNCT URE COMPREHEN 87648 [facility] SIVE 7 [facility] METABOLIC INC INC PANEL RADIOLOGI 54229 [facility] Guzmán [facility] EXAMINATI INC INC ON CHEST SINGLE VIEW FRONTAL AMB [id number] [facility] SERVICE 7 AMBULANCE AMBULANCE ALS SERVICE SERVICE EMERGENCY TRANSPORT LEVEL 1 COMPREHEN [id number] [facility]RO[facility] SIVE 7 [facility] METABOLIC INC INC PANEL CREATINE 93573 [facility] PEDROZA KINASE 7 [facility] TOTAL INC INC CREATINE 64738 YOVANY PEDROZA KINASE MB 7 [facility] FRACTION INC INC ONLY ECG 42132 YOV[facility] PEDROZA ROUTINE 7 [facility] ECG INC INC W/LEAST 12 LDS TRCG ONLY W/O I&R GROUND [id number] RUBÉN [facility] MILEAGE 7 AMBULANCE AMBULANCE PER SERVICE SERVICE STATUTE MILE RADIOLOGI 39940 DOYLE Guzmán 7 MEDICAL EXAMINATI IMAGING ON CHEST ASS SINGLE VIEW FRONTAL BLOOD 61835 Y[facility] PEDROZA COUNT 7 [facility] COMPLETE INC INC AUTO&[place] [address] YOV[facility] PEDROZA TROPONIN 7 [facility] QUANTITAT INC INC SALONI ECG 93583 KENA HECTOR ROUTINE 7 PHYSICIAN ECG S, PLLC W/LEAST 12 LDS I&R ONLY COLLECTIO [id number] COMBINED COMBINED N VENOUS 7 PHYSICIAN PHYSICIAN BLOOD S LA S LA VENIPUNCT URE TRAVEL [address] MED 7 PHYSICIAN PHYSICIAN NEC LAB S LA S LA SPEC; PRORATD TRIP CHRG BASIC 76310 COMBINED COMBINED METABOLIC 7 PHYSICIAN PHYSICIAN PANEL [place] [address] YOVANY PEDROZA TROPONIN 7 [facility] [place] [address] YOVANY PEDROZA TROPONIN 7 [facility]ANTITAT INC INC SALONI GROUND [facility]0425 [facility]ULANCE AMBULANCE PER SERVICE SERVICE STATUTE MILE ECG 50036 YOVANY PEDROZA ROUTINE 7 [facility] ECG INC INC W/LEAST 12 LDS TRCG ONLY W/O I&R ECG 13584 KENA PARKER ROUTINE 7 PHYSICIAN ECG S, PLLC W/LEAST 12 LDS I&R ONLY RADIOLOGI 37031 YOVANY PEDROZA C EXAM 7 [facility]P CHEST 2 INC INC VIEWS FRONTAL&L ATERAL BLOOD 77395 YOVANY PEDROZA COUNT 7 [facility]OSP COMPLETE INC INC AUTO&AUTO DIFRNTL WBC AMB A0427 [facility] SERVICE 7 AMBULANCE AMBULANCE ALS SERVICE SERVICE EMERGENCY TRANSPORT LEVEL 1 RADIOLOGI 54012 KENA PARKER C 7 PHYSICIAN EXAMINATI S, PLLC ON CHEST SINGLE VIEW FRONTAL CREATINE 67318 YOVANY ORDDY KINASE 7 [facility] TOTAL INC COMPREHEN 64089 YOVANY SHALA SIVE 7 [facility] [place] [address] YOVANY PEDROZA LIPASE 7 [place] [address] YOVANY PEDROZA AMYLASE 7 [facility] INC INC CREATINE 26984 YOVANY PEEK KINASE MB 7 [facility] FRACTION INC ONLY MYOCARDIA 09723 [facility] SRIVASTAV L SPECT 7 PHYSICIAN A MULTIPLE S GROUP STUDIES CV STRS 74772 [facility] TST 7 PHYSICIAN XERS&/OR S GROUP RX CONT ECG W/O I&R GROUND A0425 [facility] 7 AMBULANCE AMBULANCE PER SERVICE SERVICE STATUTE MILE ECG 11900 [facility] ROUTINE 7 PHYSICIAN ECG S, PLLC W/LEAST 12 LDS I&R ONLY AMB A0427 [facility] SERVICE 7 AMBULANCE AMBULANCE ALS SERVICE SERVICE EMERGENCY TRANSPORT LEVEL 1 ECG 58277 YOVANY PEDROZA ROUTINE 7 [facility] ECG INC INC W/LEAST 12 LDS TRCG ONLY W/O I&R GROUND A0425 [facility] 7 AMBULANCE AMBULANCE PER SERVICE SERVICE STATUTE MILE CT THORAX 56240 [place] [address] MEDICAL W/CONTRAS IMAGING T ASS MATERIAL ECG 08964 [facility] ROUTINE 7 PHYSICIAN U ECG S, PLLC W/LEAST 12 LDS I&R ONLY AMB A0427 [facility] SERVICE 7 AMBULANCE AMBULANCE ALS SERVICE SERVICE EMERGENCY TRANSPORT LEVEL 1 RADIOLOGI 22780 [facility] C 7 MEDICAL EXAMINATI IMAGING ON CHEST ASS SINGLE VIEW FRONTAL BASIC 47823 COMBINED COMBINED METABOLIC 7 PHYSICIAN PHYSICIAN PANEL S LA S LA CALCIUM TOTAL COLLECTIO 00489 COMBINED COMBINED N VENOUS 7 PHYSICIAN PHYSICIAN BLOOD S LA S LA VENIPUNCT URE TRAVEL [address] MED 7 PHYSICIAN PHYSICIAN NEC LAB S LA S LA SPEC; PRORATD TRIP CHRG TRAVEL [address] MED 6 PHYSICIAN PHYSICIAN NEC LAB S LA S LA SPEC; PRORATD TRIP CHRG COMPREHEN 04042 COMBINED COMBINED SIVE 6 PHYSICIAN PHYSICIAN METABOLIC S LA S LA PANEL COLLECTIO 47502 COMBINED COMBINED N VENOUS 6 PHYSICIAN PHYSICIAN BLOOD S LA S LA VENIPUNCT URE BLOOD 99096 COMBINED COMBINED COUNT 6 PHYSICIAN PHYSICIAN COMPLETE S LA S LA AUTO&AUTO DIFRNTL WBC BLOOD 26794 COMBINED COMBINED COUNT 6 PHYSICIAN PHYSICIAN COMPLETE S LA S LA AUTO&AUTO DIFRNTL WBC COLLECTIO 16541 COMBINED COMBINED N VENOUS 6 PHYSICIAN PHYSICIAN BLOOD S LA S LA VENIPUNCT URE COMPREHEN 01006 COMBINED COMBINED SIVE 6 PHYSICIAN PHYSICIAN METABOLIC S LA S LA PANEL TRAVEL [address] MED 6 PHYSICIAN PHYSICIAN NEC LAB S LA S LA SPEC; PRORATD TRIP CHRG ECG 54880 YOVANY NORRIS JR ROUTINE 6 [facility] W/LEAST P 12 LDS I&R ONLY GROUND A0425 [facility] 6 AMBULANCE AMBULANCE PER SERVICE SERVICE STATUTE MILE CT THORAX 08750 [place] MURILLO ALL 6 MEDICAL W/CONTRAS IMAGING T ASS MATERIAL RADIOLOGI 49763 [facility] C 6 MEDICAL MEDICAL EXAMINATI IMAGING IMAGING ON CHEST ASS ASS SINGLE VIEW FRONTAL AMB A0427 [facility] SERVICE 6 AMBULANCE AMBULANCE ALS SERVICE SERVICE EMERGENCY TRANSPORT LEVEL 1 TRANS R0070 [facility] PRTBL 6 MOBILE MOBILE X-RAY DIAGNOSTI DIAGNOSTI EQP&PERS C SE C SE GINETTE/NRS GINETTE-TRIP 1 PT SET-UP Q0092 [facility] PORTABLE 6 MOBILE MOBILE X-RAY DIAGNOSTI DIAGNOSTI EQUIPMENT C SE C SE RADEX 90895 [facility] FOOT 6 MOBILE MOBILE COMPLETE DIAGNOSTI DIAGNOSTI MINIMUM 3 C SE C SE VIEWS CULTURE 29766 YOVANY PEDROZA BACTERIAL 6 [facility] INC INC QUANTTATI VE COLONY COUNT URINE CULTURE 22281 YOVANY PEDROZA BCT 6 [facility] ISOL&PRSM [place] [address] YOVANY PEDROZA INFUSION 6 [facility] THER INC INC PROPH ADDL SEQUENTIA L TO 1 HR URNLS DIP 67150 YOVANY PEDROZA 6 [facility] STICK/TAB INC INC LET REAGENT AUTO MICROSCOP Y SUSCEPTIB 37279 YOVANY PEDROZA LTY STDY 6 [facility] ANTIMICRB INC INC IAL MICRO/[place] D[place] [address] YOVANY PEDROZA INFUSION 6 [facility] THERAPY/P INC INC ROPHYLAXI S /DX 1ST TO 1 HR THERAPEUT 48258 YOVANY PEDROZA IC 6 [facility] INJECTION INC INC IV PUSH EACH NEW DRUG BLOOD 29317 YOVANY PEDROZA COUNT 6 [facility] COMPLETE INC INC AUTO&[place] [address] YOVANY PEDROZA TROPONIN 6 [facility] QUANTITAT INC INC SALONI ECG 42290 YOVANY NORRIS JR ROUTINE 6 [facility] W/LEAST P 12 LDS I&R ONLY ECG 80641 YOVANY PEDROZA ROUTINE 6 [facility] ECG INC INC W/LEAST 12 LDS TRCG ONLY W/O I&R GROUND A0425 [facility] MILEAGE 6 AMBULANCE AMBULANCE PER SERVICE SERVICE STATUTE MILE RADIOLOGI 00030 [facility] ALL 6 MEDICAL EXAMINATI IMAGING ON CHEST ASS SINGLE VIEW FRONTAL AMBULANCE A0429 [facility] SERVICE 6 AMBULANCE AMBULANCE BLS [place] [address] YOVANY PEDROZA ABDOMEN & 6 [facility] PELVIS INC INC W/O CONTRAST MATERIAL PATIENT G8784 KENA RENUSCH NOT 6 PHYSICIAN BRITTANEY IZAGUIRRE S, PLLC E.G. PT REFUSES URGENT/EM SIT 12-LEAD 3120F [facility] RENUSC ECG 6 PHYSICIAN BRITTANEY PERFORMED S, [place] [address] YOVANY PEDROZA LIPASE 6 [facility] INC INC COMPREHEN 35499 YOVANY PEDROZA SIVE 6 [facility]OSP METABOLIC INC INC PANEL TRAVEL [address] MED 6 PHYSICIAN PHYSICIAN NEC LAB S LA S LA SPEC; PRORATD TRIP CHR COLLECTIO 44317 COMBINED COMBINED N VENOUS 6 PHYSICIAN PHYSICIAN BLOOD S LA S LA VENIPUNCT URE BASIC 03284 COMBINED COMBINED METABOLIC 6 PHYSICIAN PHYSICIAN PANEL S LA S LA CALCIUM TOTAL DEBRIDEME 87159 NOEMI FRANKLIN NT NAIL 6 JAM JAM ANY METHOD 6/> PARING/CU 86157 NOEMI FRANKLIN TTING 6 JAM JAM BENIGN HYPERKERA TOTIC LESION 2-4 BLOOD 01961 YOVANY PDEROZA OCCULT 6 [facility]OS[facility] PEROXIDAS INC INC E ACTV QUAL FECES 1-3 [place] [address] YOVANY PEDROZA TROPONIN 6 [facility] QUANTITAT INC INC SALONI GROUND A0425 [facility] [place] MILEAGE 6 AMBULANCE AMBULANCE PER SERVICE SERVICE STATUTE MILE BLOOD 18645 YOVANY PEDROZA COUNT 6 [facility] COMPLETE INC INC AUTO&AUTO DIFRNTL WBC ECG 19670 YOVANY ECHEVARRIA ROUTINE 6 [facility] W/LEAST P 12 LDS I&R ONLY RADIOLOGI 00481 [facility] [place] C [facility]AM 6 MEDICAL ABDIRAHMAN CHEST 2 IMAGING VIEWS ASS FRONTAL&L ATERAL ECG 01885 YOVANY PEDROZA ROUTINE 6 [facility] ECG INC INC W/LEAST 12 LDS TRCG ONLY W/O I&R AMB A0427 [facility] [place] SERVICE 6 AMBULANCE AMBULANCE ALS SERVICE SERVICE EMERGENCY TRANSPORT LEVEL 1 CREATINE 47282 YOVANY PEDROZA KINASE MB 6 [facility] [place] [address] YOVANY PEDROZA AMYLASE 6 [facility] INC INC CREATINE 91070 YOVANY PEDROZA KINASE 6 [facility] [place] [address] YOVANY PEDROZA LIPASE 6 [facility] INC INC COMPREHEN 64873 YOVANY PEDROZA SIVE 6 [facility] METABOLIC INC INC PANEL TRAVEL [address] MED 6 PHYSICIAN PHYSICIAN NEC LAB S LA S LA SPEC; PRORATD TRIP CHRG COLLECTIO 88707 COMBINED COMBINED N VENOUS 6 PHYSICIAN PHYSICIAN BLOOD S LA S LA VENIPUNCT URE BASIC 40147 COMBINED COMBINED METABOLIC 6 PHYSICIAN PHYSICIAN PANEL S LA S LA CALCIUM TOTAL BLOOD 53098 COMBINED COMBINED COUNT 6 PHYSICIAN PHYSICIAN COMPLETE S LA S LA AUTO&AUTO DIFRNTL WBC TRIMMING 29516 NOEMI FRANKLIN NONDYSTRO 6 JAM JAM PHIC NAILS ANY NUMBER PARING/CU 69013 NOEMI FRANKLIN TTING 6 JAM JAM BENIGN HYPERKERA TOTIC LESION 2-4 DEBRIDEME 25012 NOEMI FRANKLIN NT NAIL 6 JAM JAM ANY METHOD 1-5 DEBRIDEME 75031 NOEMI ULRICHS NT NAIL 5 JAM JAM ANY METHOD 6/> PARING/CU 48611 NOEMI ULRICHS TTING 5 JAM JAM BENIGN HYPERKERA TOTIC LESION 2-4 NONEMERG A0120 [facility] FEDERATED TRNSPRT: 5 [facility] TRANSPORT TRANSPORT MTN ATION SER ATION SER AREA/OT SYS RADIOLOGI 71904 [facility] C EXAM 5 MEDICAL ERUM CHEST 2 IMAGING VIEWS ASS FRONTAL&L ATERAL CT PELVIS 06403 [place] MURILLO ALL W/O 5 MEDICAL CONTRAST IMAGING MATERIAL ASS RADIOLOGI 19099 [place] BRITTNEY C 5 MEDICAL ABDIRAHMAN EXAMINATI IMAGING ON KNEE ASS 1/2 VIEWS RADEX HIP 55278 [place] BRITTNEY 5 MEDICAL ABDIRAHMAN UNILATERA IMAGING L ASS COMPLETE MINIMUM 2 VIEWS RADIOLOGI 74807 [facility] C 5 MOBILE MOBILE EXAMINATI DIAGNOSTI DIAGNOSTI ON FEMUR C SE C SE 2 VIEWS DEBRIDEME 35928 NOEMI FRANKLIN NT NAIL 5 JAM JAM ANY METHOD 1-5 PARING/CU 41589 NOEMI ULRICHS TTING 5 JAM JAM BENIGN HYPERKER[place]IC LESION 2-4 [place] [address] [place] MURILLO ALL ABDOMEN & 5 MEDICAL PELVIS IMAGING W/O ASS CONTRAST MATERIAL CV STRS 03872 YOVANY NORRIS JR TST [address] [facility] XERS&/OR HOSPITAL RX CONT P ECG I&R ONLY MYOCARDIA 72716 YOVANY PEDROZA L SPECT 5 [facility] MULTIPLE INC INC STUDIES NONEMERG A0120 FEDERATED FEDERATED TRNSPRT: 5 [facility] TRANSPORT TRANSPORT MTN ATION SER ATION SER AREA/OT SYS CV STRS 91665 [facility] JEROMY [facility] TST 5 PHYSICIAN XERS&/OR S GROUP RX CONT ECG W/O I&R NONEMERG A0120 FEDERATED FEDERATED TRNSPRT: 5 MINI-BUS TRANSPORT TRANSPORT MTN ATION SER ATION SER AREA/OT SYS RADIOLOGI 43802 [facility] 5 MEDICAL ERUM EXAMINATI IMAGING ON CHEST ASS SINGLE VIEW FRONTAL RADIOLOGI 57131 YOVANY YOVANY C 5 [facility] EXAMINATI INC INC ON CHEST SINGLE VIEW FRONTAL ECG 12922 YOVANY AARONKEITH ROUTINE 5 [facility] W/LEAST P 12 LDS I&R ONLY RADIOLOGI 09572 [facility] YUNG C 5 MEDICAL ERUM EXAMINATI IMAGING ON [place] [address] [facility] YUNG ABDOMEN & 5 MEDICAL ERUM PELVIS IMAGING W/O ASS CONTRAST MATERIAL PARING/CU 11891 BRAUDIS BRAUDIS TTING 5 JAM JAM BENIGN HYPERKERA TOTIC LESION 2-4 RADIOLOGI 99770 DOYLE YUNG C EXAM 4 MEDICAL ERUM CHEST 2 IMAGING VIEWS ASS FRONTAL&L ATERAL RADIOLOGI 73773 [facility] C EXAM 4 MOBILE MOBILE CHEST 2 DIAGNOSTI DIAGNOSTI VIEWS C SE C SE FRONTAL&L ATERAL NONEMERG A0120 FEDERATED FEDERATED TRNSPRT: 4 TRANS MINI-BUS TRANSPORT SERVBLUEG MTN ATION SER ROEL AREA/OTH SYS RADIOLOGI 14661 DOYLE Guzmán 4 MEDICAL ERUM EXAMINATI IMAGING ON CHEST ASS SINGLE VIEW FRONTAL ECG 43100 ALFARIS ALFARIS ROUTINE 4 MOH MOH ECG W/LEAST 12 LDS I&R ONLY RADIOLOGI 48761 [facility] BRITTNEY C 4 MEDICAL ABDIRAHMAN EXAMINATI IMAGING ON CHEST ASS SINGLE VIEW FRONTAL NONEMERG A0120 FEDERATED FEDERATED TRNSPRT: 4 TRANS MINI-BUS TRANSPORT SERVBLUEG MTN ATION SER ROEL AREA/OTH SYS ECG 30528 JR NORRIS JR ROUTINE 4 DWI DWI ECG W/LEAST 12 LDS I&R ONLY RADIOLOGI 01383 [facility] BR[facility] C 4 MEDICAL ABDIRAHMAN EXAMINATI IMAGING ON CHEST ASS SINGLE VIEW FRONTAL CT THORAX 23738 YOVANY YOVANY W/O 4 [facility] CONTRAST INC INC MATERIAL NONEMERG A0120 FEDERATED FEDERATED TRNSPRT: 4 TRANS MINI-BUS TRANSPORT SERVBLUEG MTN ATION SER ROEL AREA/OTH SYS RADIOLOGI 86369 [facility]eli BRITTNEY Guzmán 4 MEDICAL ABDIRAHMAN EXAMINATI IMAGING ON CHEST ASS SINGLE VIEW FRONTAL ECG 83719 ASHWIN CHRISTOPHER ROUTINE 4 III MAXIM III MAXIM ECG W/LEAST 12 LDS I&R ONLY NONEMERG A0120 FEDERATED FEDERATED TRNSPRT: 4 MINI-BUS TRANSPORT TRANSPORT MTN ATION SER ATION SER AREA/OTH SYS NONEMERG A0120 FEDERATED FEDERATED TRNSPRT: 4 [facility] TRANSPORT TRANSPORT MTN ATION SER ATION SER AREA/[place] [address] RASLAU RASLAU ANGIOGRAP 4 FLA FLA HY HEAD W/CONTRAS T/[place] [address] RASLAU RASLAU ANGIOGRAP 4 FLA FLA HY NECK W/CONTRAS T/NONCONT RAST CRITICAL 42882 CHIQUITA LYDIA CHIQUITA LYDIA CARE 4 ILL/INJUR ED PATIENT INIT 30-74 MIN DEBRIDEME 69956 NOEMI FRANKLIN NT NAIL 4 JAM JAM ANY METHOD 6/> PARING/CU 60744 NOEMI FRANKLIN TTING 4 JAM JAM BENIGN HYPERKERA TOTIC LESION 2-4 INJ J0702 PETTEY PETTEY BETAMETHA 3 JAM JAM SONE ACETATE & PHOSPHATE 3 MG RADIOLOGI 90625 YOVANY PEDROZA C EXAM 3 [facility] KNEE INC INC COMPLETE 4/MORE VIEWS ARTHROCEN 67725 PETTEY PETTEY TESIS 3 JAM JAM ASPIR&/IN J MAJOR JT/BURSA W/O US NONEMERG A0120 LKLP CAC LKLP CAC TRNSPRT: 3 INC INC MINI-BUS REGION 11 REGION 11 MTN AREA/OTH SYS NONEMERG A0120 LKLP CAC LKLP CAC TRNSPRT: 3 INC INC MINI-BUS REGION 11 REGION 11 MTN AREA/OTH SYS ECG 12347 YOVANY PEDROZA ROUTINE 2 [facility] ECG INC INC W/LEAST 12 LDS TRCG ONLY W/O I&R RADIOLOGI 93632 BRITTNEY BRITTNEY C 2 ABDIRAHMAN ABDIRAHMAN EXAMINATI ON CHEST SINGLE VIEW FRONTAL ECG 37193 JR NORRIS JR ROUTINE 2 DWI DWI ECG W/LEAST 12 LDS I&[place] [address] [place] BRITTNEY MAXILLOFA 2 MEDICAL ABDIRAHMAN CIAL W/O IMAGING CONTRAST ASS MATERIAL OBSERVATI 12684 SWATHI ECHEVARRIA ON CARE 2 [place] [address] [place] BRITTNEY HEAD/BRAI 2 MEDICAL ABDIRAHMAN N W/O IMAGING CONTRAST ASS MATERIAL RADIOLOGI 11812 [place] BRITTNEY C EXAM 2 MEDICAL ABDIRAHMAN CHEST 2 IMAGING VIEWS ASS FRONTAL&L ATERAL ECG 73583 LEYDI HOLLEY ROUTINE 2 EMERGENCY EMERGENCY ECG SERVICES SERVICES W/LEAST 12 LDS I&R ONLY ECG 57971 JR NORRIS JR ROUTINE 2 DWI DWI ECG W/LEAST 12 LDS I&R ONLY XTRNL ECG 84583 YOVANY PEDROZA & 48 HR 2 [facility] RECORDING INC INC EXTERNAL 85357 YOVANY YOVANY ECG 2 [facility] INC ANALYSIS REPORT XTRNL ECG 27125 MCKEMIE MCKEMIE 2 JR MAXIM JR MAXIM CONTINUOU S RHYTHM W/I&R UP TO 48 HRS ECG 40186 YOVANY PEDROZA ROUTINE 2 [facility] ECG INC INC W/LEAST 12 LDS TRCG ONLY W/O I&R ECG 78111 MCKEMIE MCKEMIE ROUTINE 2 JR MAXIM JR MAXIM ECG W/LEAST 12 LDS I&R ONLY RADIOLOGI 69373 [place] BRITTNEY C 2 MEDICAL ABDIRAHMAN EXAMINATI IMAGING ON CHEST ASS SINGLE VIEW FRONTAL MYOCARDIA 49436 BILL KHAN L SPECT 2 DENISE DENISE MULTIPLE STUDIES MYOCARDIA 82288 YOVANY PEDROZA L SPECT 2 [facility] MULTIPLE INC INC STUDIES CV STRS 02964 JR JR JR JR TST 2 DWI DWI XERS&/OR RX CONT ECG I&R ONLY CV STRS 31364 JEROMY RENAE TST 2 XERS&/OR RX CONT ECG W/O I&R CV STRS 03198 YOVANY PEDROZA TST 2 [facility] XERS&/OR INC INC RX CONT ECG TRCG ONLY NONEMERG A0120 LKLP LKLP TRNSPRT: 2 [facility] ACTION ACTION MTN AREA/OTH SYS ECG 25452 BESSON BESSON ROUTINE 2 LYDIA LYDIA ECG W/LEAST 12 LDS I&R ONLY ECG 99502 TAWNY TAWNY ROUTINE 2 ANIRUDH ANIRUDH ECG W/LEAST 12 LDS I&R ONLY NONEMERG A0120 LKLP LKLP TRNSPRT: 2 [facility] ACTION ACTION MTN AREA/OTH SYS RADIOLOGI 36591 DOYLE Guzmán 2 MEDICAL ABDIRAHMAN EXAMINATI IMAGING ON CHEST ASS SINGLE VIEW FRONTAL ECG 06034 LISETTE KNOX ROUTINE 2 MAXIM MAXIM ECG W/LEAST 12 LDS I&R ONLY TRIMMING 99750 BRAUDIS BRAUDIS NONDYSTRO 2 JAM JAM PHIC NAILS ANY NUMBER PARING/CU 98756 BRAUDIS BRAUDIS TTING 2 JAM JAM BENIGN HYPERKERA TOTIC LESION 2-4 PARING/CU 41598 BRAUDIS BRAUDIS TTING 2 JAM JAM BENIGN HYPERKERA TOTIC LESION 2-4 TRIMMING 83835 BRAUDIS BRAUDIS NONDYSTRO 2 JAM JAM PHIC NAILS ANY NUMBER BLOOD 93187 YOVANY PEDROZA COUNT 1 [facility] COMPLETE INC INC AUTO&AUTO DIFRNTL WBC ECG 94555 LEYDI CHRISTOPHER ROUTINE 1 EMERGENCY III MAXIM ECG SERVICES W/LEAST 12 LDS I&R ONLY RADIOLOGI 16059 YOVANY PEDROZA C 1 [facility] EXAMINATI INC INC [place] [address] YOVANY PEDROZA TROPONIN 1 [facility] QUANTITAT INC INC SALONI ECG 30083 YOVANY PEDROZA ROUTINE 1 [facility] ECG INC INC W/LEAST 12 LDS TRCG ONLY W/O I&R COMPREHEN 86489 YOVANY YOVANY SIVE 1 [facility] METABOLIC INC INC PANEL CREATINE 05223 YOVANY PEDROZA KINASE 1 [facility] TOTAL INC INC CREATINE 68414 YOVANY PEDROZA KINASE MB 1 [facility] FRACTION INC INC ONLY URNLS DIP 41719 COMBINED COMBINED 1 PHYSICIAN PHYSICIAN STICK/TAB S LA S LA LET REAGENT AUTO MICROSCOP Y RADIOLOGI 94704 YOVANY PEDROZA C 1 [facility] EXAMINATI INC INC ON CHEST SINGLE VIEW FRONTAL AMB A0427 [facility] SERVICE 1 AMBULANCE AMBULANCE ALS SERVICE SERVICE EMERGENCY TRANSPORT LEVEL 1 COMPREHEN 11858 YOVANY PEDROZA SIVE 1 [facility] METABOLIC INC INC PANEL GROUND A0425 [facility] MILEAGE 1 AMBULANCE AMBULANCE PER SERVICE SERVICE STATUTE MILE BLOOD 53479 YOVANY PEDROZA COUNT 1 [facility] COMPLETE INC INC AUTO&AUTO DIFRNTL WBC PRESSURIZ 00471 YOVANY PEDROZA ED/NONPRE 1 [facility] SSURIZED [place] [address] YOVANY PEDROZA INFUSION 1 [facility] THERAPY/P INC INC ROPHYLAXI S /DX 1ST TO 1 HR THERAPEUT 64259 YOVANY PEDROZA IC 1 [facility] INJECTION INC INC IV PUSH EACH NEW DRUG NONEMERGE A0100 [facility] CAB RIY 1 COMMUNITY TRANSPORT ACTION ATION; TAXI DEBRIDEME 23919 [facility] OPEN 1 Y Y WOUND 20 [facility] SQ CM/< DEBRIDEME 60175 [facility] OPEN 1 Y Y WOUND 20 [facility] SQ CM/< DEBRIDEME 83063 [facility] OPEN 1 FOOT FOOT WOUND 20 [facility] PROFESSIO SQ CM/< NALS NALS NONEMERGE A0100 [facility] COMMUNITY TRANSPORT ACTION ATION; TAXI RADEX 59357 [place] [facility] JAM FOOT 1 MEDICAL COMPLETE SERV MINIMUM 3 FOUNDATIO VIEWS URNLS DIP 70054 COMBINED COMBINED 1 PHYSICIAN PHYSICIAN STICK/TAB S LA S LA LET REAGENT AUTO MICROSCOP Y NONEMERGE A0100 [facility] 0 COMMUNITY TRANSPORT ACTION ATION; TAXI URNLS DIP 00512 COMBINED COMBINED 0 PHYSICIAN PHYSICIAN STICK/TAB S LA S LA LET REAGENT AUTO MICROSCOP Y URNLS DIP 03701 COMBINED COMBINED 0 PHYSICIAN PHYSICIAN STICK/TAB S LA S LA LET REAGENT AUTO MICROSCOP Y CULTURE 93225 COMBINED COMBINED BACTERIAL 0 PHYSICIAN PHYSICIAN S LA S LA QUANTTATI VE COLONY COUNT URINE GROUND A0425 [facility] MILEAGE 0 AMBULANCE AMBULANCE PER SERVICE SERVICE STATUTE MILE AMBULANCE A0429 [facility] SERVICE 0 AMBULANCE AMBULANCE BLS SERVICE SERVICE EMERGENCY TRANSPORT ORTHOPANT 59942 THE LETA, OGRAM 0 IMPLANT & ERIC R ORAL SURGERY [facility] ECG 82875 YOVANY NORRIS, ROUTINE 0 [facility] W/LEAST PROF SERV 12 LDS I&R ONLY ECG 90070 YOVANY PEDROZA ROUTINE 0 [facility] ECG INC INC W/LEAST 12 LDS TRCG ONLY W/O I&R ECG 79589 YOVANY PEDROZA ROUTINE 0 [facility] ECG INC INC W/LEAST 12 LDS TRCG ONLY W/O I&R GROUND A0425 [facility] AMBULANCE PER SERVICE SERVICE STATUTE MILE AMBULANCE A0429 [facility] SERVICE 0 AMBULANCE AMBULANCE BLS SERVICE [place] [address] YOVANY PEDROZA TROPONIN 0 [facility] QUANTITAT INC INC SALONI ECG 12710 YOVANY NORRIS, ROUTINE 0 [facility] W/LEAST PROF SERV 12 LDS I&R ONLY BLOOD 44512 YOVANY PEDROZA COUNT 0 [facility] COMPLETE INC INC AUTO&AUTO DIFRNTL WBC URNLS DIP 64679 YOVANY PEDROZA 0 [facility] STICK/TAB INC INC LET REAGENT AUTO MICROSCOP Y BASIC 26107 YOVANY PEDROZA METABOLIC 0 [facility] PANEL INC INC CALCIUM TOTAL CREATINE 49781 YOVANY PEDROZA KINASE MB 0 [facility] FRACTION INC INC ONLY CREATINE 80875 YOVANY PEDROZA KINASE 0 [facility] TOTAL INC INC CREATINE 83087 YOVANY PEDROZA KINASE 0 [facility] [place] [address] [facility] LIPASE 0 [facility] INC INC COMPREHEN 70634 [facility] SIVE 0 [facility] METABOLIC INC INC PANEL CREATINE 58756 [facility] KINASE MB 0 [facility] [place] [address] [facility] AMYLASE 0 [facility] INC INC URNLS DIP 99491 [facility] 0 [facility] STICK/TAB INC INC LET REAGENT AUTO MICROSCOP Y BLOOD 56199 [facility] COUNT 0 [facility] COMPLETE INC INC AUTO&AUTO DIFRNTL WBC ECG 68547 LEYDI HECTOR, ROUTINE 0 EMERGENCY ALEX S ECG SERVICES W/LEAST 12 LDS ASSOCIATE I&R ONLY S RADEX ABD 17239 [facility] COMPL 0 [facility] AQT [facility]BD INC INC W/S/E/D V[place]WS [address] [place] [address] [facility] TROPONIN 0 [facility] QUANTITAT INC INC SALONI AMBULANCE A0429 [facility] SERVICE 0 AMBULANCE AMBULANCE BLS SERVICE SERVICE EMERGENCY TRANSPORT GROUND A0425 RUBÉN [facility] MILEAGE 0 AMBULANCE AMBULANCE PER SERVICE SERVICE STATUTE MILE ECG 20492 [facility] ROUTINE 0 [facility] ECG INC INC W/LEAST 12 LDS TRCG ONLY W/O I&R DEBRIDEME 55818 ASHA BARRY NT SKIN [address] [place] [address] [facility] HEAD/BRAI 0 [facility] N W/O INC INC CONTRAST MATERIAL 3D 94079 [facility] RENDERING 0 [facility] W/INTERP INC INC & POSTPROCE SS SUPERVISI ON AMB A0427 [facility] SERVICE 0 AMBULANCE AMBULANCE ALS SERVICE SERVICE EMERGENCY TRANSPORT LEVEL [address] [facility] MILEAGE 0 AMBULANCE AMBULANCE PER SERVICE SERVICE STATUTE MILE BLOOD 38866 COMBINED COMBINED COUNT 0 PHYSICIAN PHYSICIAN COMPLETE S LAB S LAB AUTO&AUTO DIFRNTL WBC COLLECTIO 03645 COMBINED COMBINED N VENOUS 0 PHYSICIAN PHYSICIAN BLOOD S LAB S LAB VENIPUNCT URE TRAVEL [address] MED 0 PHYSICIAN PHYSICIAN NEC LAB S LAB S LAB SPEC; PRORATD TRIP CHRG DEBRIDEME 20867 FOLLMER FOLLMER NT SKIN 0 ANGY ANGY PARTIAL THICKNESS THERAPEUT 66003 [facility] IC 0 [facility] INJECTION INC [place] [address] [facility] INFUSION 0 [facility] THERAPY/P INC INC ROPHYLAXI S /DX 1ST TO 1 HR CREATINE 42540 [facility] KINASE MB 0 [facility] FRACTION INC INC ONLY CREATINE 52193 [facility] P[facility] KINASE 0 [facility] TOTAL INC INC AMB A0427 [facility] SERVICE 0 AMBULANCE AMBULANCE ALS SERVICE SERVICE EMERGENCY TRANSPORT LEVEL 1 3D 97726 [facility] RENDERING 0 [facility] W/INTERP INC INC & POSTPROCE SS SUPERVISI ON BASIC 42677 [facility] METABOLIC 0 [facility] [place] [address] [facility] P[facility] HEAD/BRAI 0 [facility] N W/O INC INC CONTRAST MATERIAL HEPATIC 32939 [facility] FUNCTION 0 [facility] PANEL INC INC BLOOD 35367 [facility] COUNT 0 [facility] COMPLETE INC INC AUTO&AUTO DIFRNTL WBC ECG 74916 LEYDI HECTOR, ROUTINE 0 EMERGENCY ALEX S ECG SERVICES W/LEAST 12 LDS ASSOCIATE I&R ONLY S GROUND A0425 [facility] MILEAGE 0 AMBULANCE AMBULANCE PER [place] [address] [facility] TROPONIN 0 [facility] QUANTITAT INC INC SALONI ECG 74878 [facility] ROUTINE 0 [facility] ECG INC INC W/LEAST 12 LDS TRCG ONLY W/O I&R DUP-SCAN 46493 [facility] XTR VEINS 9 [facility] INC INC UNILATERA L/LIMITED STUDY GROUND A0425 [facility] 9 AMBULANCE AMBULANCE PER SERVICE SERVICE STATUTE MILE AMBULANCE A0429 [facility] SERVICE 9 AMBULANCE AMBULANCE BLS SERVICE SERVICE EMERGENCY TRANSPORT AMBULANCE A0429 [facility] SERVICE 9 [facility] AMBULANCE AMBULANCE EMERGENCY TRANSPORT GROUND A0425 [facility] MILEAGE 9 [place] PER AMBULANCE AMBULANCE STATUTE MILE ECG 29190 [facility] ROUTINE 9 [facility] ECG W/LEAST 12 LDS TRCG ONLY W/O I&R ECG 80611 [facility] [facility], ROUTINE 9 RADHA DMITRIY G ECG EMERGENCY W/LEAST PHYS INC 12 LDS I&R ONLY IIV3 04042 [facility], VACCINE 9 GABI W GABI Boateng SPLIT VIRUS 0.5 ML DOSAGE IM USE ADMINISTR G0008 [facility], ATION OF 9 GABI W GABI W INFLUENZA VIRUS VACCINE BASIC 77401 [facility] METABOLIC 9 [facility] PANEL INC INC CALCIUM TOTAL URNLS DIP 40556 [facility] 9 [facility] STICK/TAB INC [place] [address] [facility] ABDOMEN 9 [facility] W/O INC INC CONTRAST MATERIAL BLOOD 91467 [facility]RO[facility] COUNT 9 [facility] COMPLETE INC INC AUTO&AUTO DIFRNTL WBC 3D 52071 DOYLE CARTAGENA, RENDERING 9 MEDICAL GABRIELLA P IMAGING W/INTERP& ASSOCIATE POSTPROC S DIFF WORK STATION GROUND A0425 [facility] 9 AMBULANCE AMBULANCE PER SERVICE SERVICE STATUTE MILE AMBULANCE A0429 [facility] SERVICE 9 AMBULANCE AMBULANCE BLS SERVICE SERVICE EMERGENCY TRANSPORT CT PELVIS 34403 Y[facility] PEDROZA W/O 9 [facility] CONTRAST INC INC MATERIAL RADIOLOGI 84460 [facility] C 9 [facility] EXAMINATI ON KNEE 3 VIEWS SET-UP Q0092 [facility] 9 [facility] X-RAY EQUIPMENT TRANS R0075 [facility] PRTBL 9 [facility] XRAY EQP&PERS GINETTE/NRS GINETTE-TRIP> 1 PT URNLS DIP 58641 COMBINED COMBINED 9 PHYSICIAN PHYSICIAN STICK/TAB S LAB S LAB LET REAGENT AUTO MICROSCOP Y DEBRIDEME 23699 ASHA BARRY, NT SKIN 9 ANGY S ANGY S PARTIAL THICKNESS MRI LOWER 30254 BRITTNEYJOSEBRITTNEY, EXTREM 9 HAYLEY HAYLEY OTH/THN JT W/O & [place] [address] COMBINED COMBINED UREA 9 PHYSICIAN PHYSICIAN NITROGEN S LAB S LAB QUANTITAT SALONI COLLECTIO 15815 COMBINED COMBINED N VENOUS 9 PHYSICIAN PHYSICIAN BLOOD S LAB S LAB VENIPUNCT URE TRAVEL [address] MED 9 PHYSICIAN PHYSICIAN NEC LAB S LAB S LAB SPEC; PRORATD TRIP CHRG CREATININ 74270 COMBINED COMBINED E BLOOD 9 PHYSICIAN PHYSICIAN S LAB S LAB DEBRIDEME 89109 ASHA BARRY, NT SKIN 9 ANGY S ANGY S PARTIAL THICKNESS DEBRIDEME 09108 ASHA BARRY, NT SKIN 9 ANGY S ANGY S PARTIAL THICKNESS DEBRIDEME 79047 BOBBI BARRYMER, NT SKIN 9 ANGY S ANGY S PARTIAL THICKNESS RADIOLOGI 71419 ASHA BARRY, C 9 ANGY S ANGY S EXAMINATI ON FOOT 2 VIEWS SBSQ 49664 [facility], NURSING 9 GABI Boateng FACIL CARE/DAY MINOR COMPLJ 15 MIN ORTHOPANT 81743 [place] KARAN ESTRADA 8 FOR EDENILSON E ORAL&MAXI LLOFACIAL SURGERY IIV3 00293 [facility], VACCINE 8 GABI Boateng SPLIT VIRUS 0.5 ML DOSAGE IM USE ADMINISTR G0008 [facility], ATION OF 8 GABI Boateng INFLUENZA VIRUS VACCINE TRAVEL [address] MED 8 PHYSICIAN PHYSICIAN NEC LAB S LAB S LAB SPEC; PRORATD TRIP CHRG COLLECTIO 78201 COMBINED COMBINED N VENOUS 8 PHYSICIAN PHYSICIAN BLOOD S LAB S LAB VENIPUNCT URE BASIC 91222 COMBINED COMBINED METABOLIC 8 PHYSICIAN PHYSICIAN PANEL S LAB S LAB CALCIUM TOTAL BLOOD 60902 COMBINED COMBINED COUNT 8 PHYSICIAN PHYSICIAN COMPLETE S LAB S LAB AUTO&AUTO DIFRNTL WBC GROUND A0425 [facility] PER SERVICE SERVICE STATUTE MILE AMBULANCE A0429 [facility] SERVICE 8 AMBULANCE AMBULANCE BLS SERVICE SERVICE EMERGENCY TRANSPORT RADEX 91857 YOVANY PEDROZA WRIST 8 [facility] COMPLETE INC INC MINIMUM 3 VIEWS SBSQ 02162 [facility]YN[facility], NURSING 8 GABI Boateng FACIL CARE/DAY MINOR COMPLJ 15 MIN SBSQ 90190 [facility], NURSING 8 GABI Boateng FACIL CARE/DAY MINOR COMPLJ 15 MIN Encounters Encounter Start End Date Code Location Performer Type Date EMERGENCY 83922 KENA STEPHENSON DEPT 7 7 PHYSICIAN U VISIT S, PLLC HIGH SEVERITY& THREAT FUN EMERGENCY 57595 YOVANY 7 7 [facility] T VISIT LOW/MODER SEVERITY EMERGENCY 54371 KENA JAMES DEPT 7 7 PHYSICIAN VISIT S, PLLC HIGH SEVERITY& THREAT [facility] YOVANY - 7 7 [place] [facility] EMERGENCY 65997 YOVANY 7 7 [facility] T VISIT HIGH/URGE NT SEVERITY EMERGENCY 30954 KENA HECTOR DEPT 7 7 PHYSICIAN VISIT S, PLLC HIGH SEVERITY& THREAT [facility] YOVANY Gifford 7 7 [facility]PATIEN [facility]PITAL YOVANY Gifford 7 7 [place] [facility] T EMERGENCY 34631 YOVANY 7 7 [facility] T VISIT HIGH/URGE NT SEVERITY EMERGENCY 60438 [facility] DEPT 7 7 PHYSICIAN VISIT S, [facility] HIGH SEVERITY& THREAT [facility] EMERGENCY 44473 [facility] DEPT 7 7 PHYSICIAN VISIT S, [facility] HIGH SEVERITY& THREAT [facility] YOVANY - 7 7 [facility] OUTPATIEN [facility] EMERGENCY 25371 [facility] 7 PHYSICIAN U VISIT S, [facility] HIGH SEVERITY& THREAT [facility] EMERGENCY 98328 [facility] DEPT 6 6 PHYSICIAN BRITTANEY VISIT S, [facility] HIGH SEVERITY& THREAT [facility] YOVANY - 6 6 [facility] OUTPATIEN [facility] EMERGENCY 87444 YOVANY 6 6 [facility] VISIT MODERATE SEVERITY HOSPITAL YOVANY - 6 6 [facility] OUTPATIEN [facility] OFFICE 42385 [facility] 5 5 CLAUDINE BOWLES PHYSICIAN NEW/ESTAB S ASSIST PATIENT 60 MIN HOSPITAL YOVANY - 5 5 [facility] OUTPATIEN [facility] YOVANY - 5 5 [facility] OUTPATIEN [facility] YOVANY - 5 5 [facility] OUTPATIEN [facility] YOVANY - 4 4 [facility] OUTPATIEN [facility] YOVANY - 3 3 [facility] OUTPATIEN [facility] YOVANY - 2 2 [facility] OUTPATIEN [facility] YOVANY - 2 2 [facility] OUTPATIEN [facility] YOVANY - 2 2 [facility] OUTPATIEN [facility] YOVANY - 2 2 [facility] OUTPATIEN [facility] EMERGENCY 53033 LEYDI CHRISTOPHER DEPT 1 1 EMERGENCY III MAXIM VISIT SERVICES HIGH SEVERITY& THREAT [facility] H[facility]PITAL YOVANY - 1 1 [facility] OUTPATIEN [facility] T EMERGENCY 94585 YOVANY 1 1 [facility] T VISIT HIGH/URGE NT SEVERITY HOSPITAL YOVANY - 1 1 [place] [facility] T EMERGENCY 53472 [facility] 1 1 [facility] T VISIT HIGH/URGE NT SEVERITY EMERGENCY 70992 LEYDI CHRISTOPHER DEPT 1 1 EMERGENCY III MAXIM VISIT SERVICES HIGH SEVERITY& THREAT [facility] UNIVERSIT - 1 1 [facility] HOSPITAL UNIVERSIT - 1 1 Y [facility] OFFICE 24896 [facility] 1 1 FOOT FOOT T [facility] 30 PROFESSIO PROFESSIO MINUTES NALS NALS EMERGENCY 90827 [facility]ANY 0 0 [facility] T VISIT LIMITED/M INOR PROB EMERGENCY 89103 LEYDI HECTOR, 0 0 EMERGENCY [facility] SERVICES T VISIT HIGH/URGE ASSOCIATE NT S [facility] YOVANY - 0 0 [place] [facility] OFF[facility] 66421 [facility] 0 0 IMPLANT & ERIC R T NEW 20 ORAL MINUTES [facility] EMERGENCY 78929 LEYDI HECTOR, KARINT 0 0 EMERGENCY [facility] VISIT SERVICES HIGH SEVERITY& ASSOCIATE THREAT S [facility] YOVANY - 0 0 [place] [facility] T EMERGENCY 63462 Y[facility]ANY 0 0 [facility] T VISIT HIGH/URGE NT SEVERITY EMERGENCY 22656 LEYDI HECTOR, KARINT 0 0 EMERGENCY [facility] VISIT SERVICES HIGH SEVERITY& ASSOCIATE THREAT S [facility] 88696 YOVANY 0 0 [facility] INC T VISIT HIGH/URGE NT SEVERITY HOSPITAL Y[facility]ANY - 0 0 [facility] OUTPATIEN INC T HOSPITAL YOVANY - 0 0 [facility] OUTPATIEN INC T EMERGENCY 53770 LEYDI CHRISTOPHER DEPT 0 0 EMERGENCY III, VISIT SERVICES LUISANA HIGH SEVERITY& ASSOCIATE THREAT S [facility] EMERGENCY 43376 YOVANY 0 0 [facility] DE[facility] INC T VISIT MODERATE SEVERITY EMERGENCY 68739 LEYDI HECTOR, DEPT 0 0 EMERGENCY ALEX S VISIT SERVICES HIGH SEVERITY& ASSOCIATE THREAT S [facility] YOVANY - 0 0 [facility] OUTPATIEN [facility] T EMERGENCY 01148 YOVANY 0 0 [facility]PART[facility] INC T VISIT HIGH/URGE NT SEVERITY OFFICE 02224 ASHA BARRY, [facility] 0 0 ANGY S ANGY S T VISIT 10 MINUTES EMERGENCY 93883 YOVANY 9 9 [facility] DEPART[facility] INC T VISIT LOW/MODER SEVERITY HOSPITAL YOVANY - 9 9 [facility] OUTPATIEN [facility] T EMERGENCY 20198 [facility] 9 9 RADHA IZAGUIRRE [facility] EMERGENCY T VISIT [facility] INC MODERATE SEVERITY EMERGENCY 35371 [facility] DE[facility] 9 9 HOSPITAL VISIT HIGH SEVERITY& THREAT [facility] - 9 9 HOSPITAL OUTPATIEN EMERGENCY 53409 YOVANY 9 9 [facility] DEPARTMEN INC T VISIT HIGH/URGE NT SEVERITY EMERGENCY 09192 LEYDI HECTRO DEPT 9 9 EMERGENCY ALEX S VISIT SERVICES HIGH SEVERITY& ASSOCIATE THREAT S [facility] YOVANY - 9 9 [facility] OUTPATIEN INC T OFFICE 62089 ASHA BARRY OUTPATIEN 9 9 ANGY S ANGY S T VISIT 10 MINUTES OFFICE 90182 ASHA BARRY OUTPATIEN 9 9 ANGY S ANGY S T VISIT 10 MINUTES OFFICE 00925 ASHA BARRY OUTPATIEN 9 9 ANGY S ANGY S T NEW 30 MINUTES OFFICE 25990 [facility] JUSTIN HUNTER 8 8 FOR EDENILSON Chen NEW 10 ORAL&MAXI MINUTES LLOFACIAL SURGERY EMERGENCY 65076 YOVANY 8 8 [facility] INC T VISIT MODERATE SEVERITY HOSPITAL YOVANY - 8 8 [facility] OUTPATIEN INC T
--- OUTSIDE RECORDS SUMMARY | 2017-08-20 17:39 | External Medical Summary Rpt | CCD ---
Author Author , TRACEY Organization [facility] Address Unknown Phone [email or web address] Care Team Providers Care Regulatory Affairs Consultant Name Role Phone ALFARIS MOH, ALFARIS Unavailable Unavailable MOH GABI LYNCH, Unavailable Unavailable GABI LYNCH BEINEKE ERUM, BEINEKE Unavailable Unavailable ERUM BESSON LYDIA, BESSON Unavailable Unavailable LYDIA BESSON LYDIA, BESSON Unavailable Unavailable LYDIA BESSON, ADRIAN A, Unavailable Unavailable BESSON, ADRIAN A MURILLO, MURILLO Unavailable Unavailable MURILLO ALL, MURILLO ALL Unavailable Unavailable BRAUDIS JAM, BRAUDIS Unavailable Unavailable JAM BRAUDIS JAM, BRAUDIS Unavailable Unavailable JAM [facility] Unavailable Unavailable SERVICE, [facility] Unavailable Unavailable SERVICE, [facility], [facility] Unavailable Unavailable [facility] Unavailable Unavailable [place], [facility]available Unavailable [facility], [facility] Unavailable Unavailable LAB, [facility] COOK, COOK Unavailable Unavailable COOK BATOOL, COOK BATOOL Unavailable Unavailable RODDY, RODDY Unavailable Unavailable BRITNTEY ABDIRAHMAN, Unavailable Unavailable BRITTNEY ABDIRAHMAN BRITTNEY, HAYLEY, [...] ANIRUDH ALEX HECTOR, Unavailable Unavailable ALEX HECTOR [facility] Unavailable Unavailable INC, [facility] Unavailable Unavailable HOSPITAL P, [facility], Unavailable Unavailable [facility] DMITRIY TREVIZO, Unavailable Unavailable DMITRIY TREVIZO [facility]BER Unavailable Unavailable [facility] Unavailable Unavailable [facility], [facility] MANDY REGGIE, MANDY Unavailable Unavailable REGGIE [facility] Unavailable Unavailable [facility], [facility] Unavailable Unavailable [facility], [facility] Unavailable Unavailable [facility], [facility] Unavailable Unavailable [facility], [facility] JR JR DWI, JR Unavailable Unavailable JR DWI JR JR DWI, JR Unavailable Unavailable JR DWI JR, SHIRA E, Unavailable Unavailable JR, SHIRA E [facility] Unavailable Unavailable 11, [facility] 11 [facility] Unavailable Unavailable ACTION, [facility] Unavailable Unavailable SERVICES, [facility] MCKEMIE JR MAXIM, Unavailable Unavailable M[facility] JR MAX[facility] M[facility] JR [facility], Unavailable Unavailable [facility] ERIC GILLETTE, Unavailable Unavailable [facility] Unavailable Unavailable [facility] GABRIELLA CARTAGENA, Unavailable Unavailable GABRIELLA CARTAGENA PHYSICIANS, [...] [facility] CASTILLO, Unavailable Unavailable CASTILLO [facility], Unavailable Unavailable [facility] SHALA, SHALA Unavailable Unavailable [facility] Unavailable Unavailable ASSIST, [facility], Unavailable Unavailable [facility] WEHRMAN III MAXIM, Unavailable Unavailable WEHRMAN III MAXIM WEHRMAN III MAXIM, Unavailable Unavailable [facility] MAX[facility] WEHRMAN IIILUISANA, Unavailable Unavailable SHLOMOHRANA LAURA IIILUISANA, MYRON MORENO Unavailable Unavailable Purpose Continuity of Care Document - 12-15-2007 through 2016 Problems Code Diagnosis DOS Provider Status I10 ESSENTIAL 06-08-2017 [facility], HYPERTENSIO PLLC N R0789 OTHER CHEST 06-08-2017 [facility], PLLC K219 GASTRO-ESOP 04-26-2017 [facility] DISEASE INC WITHOUT ESOPHAGITIS R079 CHEST PAIN 04-26-2017 [facility] Z720 TOBACCO USE 04-26-2017 [facility] INC R918 OTHER 04-08-2017 [place] NONSPECIFIC MEDICAL ABNORMAL IMAGING ASS FINDING OF LUNG FIELD N08613 OTHER LONG 04-08-2017 [facility] P DRUG THERAPY D649 ANEMIA 03-12-2017 [facility] UNSPECIFIED PHYSICIANS LA I498 OTHER 02-22-2017 [facility] SPECIFIED AMBULANCE CARDIAC SERVICE ARRHYTHMIAS J9811 ATELECTASIS 02-22-2017 [facility] I208 OTHER FORMS 01-21-2017 [facility] PECTORIS GROUP R0602 SHORTNESS 01-21-2017 [facility] OF BREATH PHYSICIANS GROUP R069 UNSPECIFIED 01-21-2017 [facility] ABNORMALITI GROUP ES OF BREATHING R251 TREMOR 01-17-2017 [facility] UNSPECIFIED [facility]ICIANS, PLLC R4182 ALTERED 01-17-2017 [facility] MENTAL AMBULANCE STATUS SERVICE UNSPECIFIED I209 ANGINA 01-13-2017 [facility] PECTORIS [facility] UNSPECIFIED INC R0600 DYSPNEA 01-13-2017 [facility] UNSPECIFIED [facility] INC U38739 PAIN IN 07-23-2016 [facility] RIGHT [facility]OT MOBILE DIAGNOSTIC SE E876 HYPOKALEMIA 07-05-2016 [facility], PLLC K209 ESOPHAGITIS 07-05-2016 [facility] UNSPECIFIED INC K5900 CONSTIPATIO 07-05-2016 [facility] N PHYSICIANS, UNSPECIFIED PLL N200 CALCULUS OF 07-05-2016 [facility] R1084 GENERALIZED 07-05-2016 [place] ABDOMINAL [facility]ICAL PAIN IMAGING ASS R1110 VOMITING 07-05-2016 [place] [facility]PEC[facility]IED [facility] ASS R112 NAUSEA WITH 07-05-2016 [facility]OMITING PHYSICIANS, UNSPECIFIED PLL B351 TINEA 05-28-2016 BRAUDIS JAM UNGUIUM Y73996 UNS 05-28-2016 BRAUDIS JAM ATHEROSCLER [place] ART EXTREM BILATERAL LEGS Z26602 PAIN IN 05-28-2016 BRAUDIS JAM RIGHT TOES Y23063 PAIN IN 05-28-2016 BRAUDIS JAM LEFT TOES J189 PNEUMONIA 05-01-2016 [place] UNSPECIFIED MEDICAL ORGANISM IMAGING ASS J984 OTHER 05-01-2016 [place] DISORDERS MEDICAL OF LUNG IMAGING ASS K210 GASTRO-ESOP 05-01-2016 [facility] P DISEASE W/ ESOPHAGITIS R05 COUGH 05-01-2016 [facility] R1010 UPPER 05-01-2016 [facility] ABDOMINAL AMBULANCE PAIN SERVICE UNSPECIFIED R109 UNSPECIFIED 10-24-2015 [facility] ABDOMINAL PHYSICIANS PAIN ASSIST R69 ILLNESS 10-24-2015 [facility] UNSPECIFIED TRANSPORTAT ION SER Z791 NUCLEAR PHYSICIST 10-24-2015 [facility] CURR PHYSICIANS NON-STEROID ASSIST AL&ANTI-INF LAMMATORIES J219 ACUTE 10-09-2015 [facility] BRONCHIOLIT [facility] IS INC UNSPECIFIED J441 CHRONIC 10-09-2015 [facility] PULMONARY INC DZ W/EXACERBAT ION E119 TYPE 2 08-22-2015 [facility] DIABETES MOBILE MELLITUS DIAGNOSTIC WITHOUT SE COMPLICATIO NS J28890 PAIN IN 08-22-2015 [place] LEFT HIP [facility]ICAL [facility] ASS T04847 PAIN IN 08-22-2015 [place] LEFT KNEE MEDICAL IM[facility]ING ASS L22657 PAIN IN 08-22-2015 [place] LEFT THIGH MEDICAL IMAGING ASS P74830R UNSPECIFIED 08-22-2015 [facility] INJURY MOBILE LEFT HIP DIAGNOSTIC INITIAL SE ENCOUNTER L851 ACQ 08-21-2015 [facility] MORENO KERATOSIS KERATODERMA PALMARIS ET PLANTARIS 24434 ABDOMINAL 05-30-2015 [place] PAIN, MEDICAL EPIGASTRIC IMAGING ASS 17092 OTHER 05-21-2015 [place] DYSPNEA AND MEDICAL [place]AG[place] [address] CHEST PAIN 05-21-2015 [place] UNSPECIFIED [facility]ICAL IM[facility]ING ASS 91288 05-21-2015 [facility] TRANSPORTAT ION SER 5180 PULMONARY 05-07-2015 [place] COLLAPSE [facility] 4019 UNSPECIFIED 04-06-2015 [facility] P N 65854 DIVERTICULO 03-25-2015 [place] SIS OF MEDICAL COLON IMAGING ASS 1101 DERMATOPHYT 11-27-2014 NOEMI MORENO OSIS OF NAIL 79750 ATHEROSCLER 11-27-2014 NOEMI MORENO OSIS [place] ART EXTREMITIES UNSPEC 7011 ACQUIRED 11-27-2014 NOEMI MORENO KERATODERMA 7295 PAIN IN 11-27-2014 NO[facility]I MORENO SOFT TISSUES OF LIMB 7862 COUGH 08-16-2014 [facility] 06469 NONSPEC 08-09-2014 [facility] REACT MOBILE TUBERCULIN DIAGNOSTIC SKIN TEST SE W/O ACTIVE TB 515 POSTINFLAMM 06-05-2014 [place] ATORY MEDICAL PULMONARY IMAGING ASS FIBROSIS 7851 PALPITATION 06-05-2014 [place] S [facility]ICAL [facility] 496 CHRONIC 05-27-2014 [place] AIRWAY MEDICAL OBSTRUCTION IMAGING ASS NEC 6101 DIFFUSE 05-03-2014 [facility] EMERGENCY MASTOPATHY PHYS 64524 MASTODYNIA 05-03-2014 JR JR DWI 4928 OTHER 04-25-2014 [place] EMPHYSEMA [facility]ICAL [facility]ING ASS 7866 SWELLING, 04-25-2014 [facility] MASS, OR [facility] LUMP IN INC CHEST 99276 OTHER 04-25-2014 [place] NONSPECIFIC MEDICAL ABNORMAL IMAGING ASS FINDING OF LUNG FIELD 2768 HYPOPOTASSE 04-05-2014 WEHRMAN III PEG MAXIM 36529 TRANSIENT 02-17-2014 [facility] FLA VISUAL LOSS 80153 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 26733 PSYCHOPHYSI 02-16-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 LYDIA MANSI VISUAL DISTURBANCE S 25893 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-16-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 LYDIA CEREBRAL ARTERY OCCLUSION W/INFARCT 00826 OSTEOARTHRO 09-02-2013 PETTEY JAM SIS UNSPEC WHETHER GEN/LOC LOWER LEG 47316 PAIN IN 09-02-2013 [facility] JOINT, [facility] LOWER LEG INC 4660 ACUTE 10-22-2012 JR JR BRONCHITIS DWI 490 BRONCHITIS 10-22-2012 [facility] MAXIM NOT SPECIFIED ACUTE OR CHRONIC 7802 SYNCOPE AND 08-04-2012 [place] COLLAPSE [facility] 82507 OTHER CHEST 08-03-2012 [facility] LYDIA PAIN 2749 GOUT, 06-25-2012 [facility] LYDIA UNSPECIFIED 63114 SHORTNESS 06-25-2012 [facility] LYDIA OF BREATH 4111 INTERMEDIAT 05-28-2012 [facility] MAXIM E CORONARY SYNDROME 4139 OTHER AND 05-28-2012 [facility] DANIEL UNSPECIFIED MAXIM ANGINA PECTORIS 35707 OTHER 05-28-2012 [place] DISEASES OF MEDICAL LUNG NOT IMAGING ASS ELSEWHERE CLASSIFIED 5990 URINARY 03-12-2011 [facility] TRACT [facility]YSICIANS INFECTION LA SITE NOT SPECIFIED 71082 OTHER 03-12-2011 [facility] ABNORMAL PHYSICIANS GLUCOSE LA 9597 INJURY 03-12-2011 [facility] OTHER&UNSPE PHYSICIANS CIFIED KNEE LA LEG ANKLE&FOOT 5589 OTH&UNSPEC 02-05-2011 [facility] NONINFECTIO [facility] US INC GASTROENTER ITIS&COLITI S 39109 OTHER 02-05-2011 [facility] MALAISE AND AMBULANCE FATIGUE SERVICE 90864 NAUSEA WITH 02-05-2011 [facility] 73672 DIARRHEA 02-05-2011 [facility] V5869 LONG-TERM 02-05-2011 [facility] (CURRENT) [facility] USE OF INC OTHER MEDICATIONS 700 CORNS AND 01-27-2011 [facility] 8930 OPEN WOUND 01-06-2011 [facility] MENTION COMPLICATIO N 7350 HALLUX 12-16-2010 [place] [facility] 7354 OTHER 12-16-2010 [place] [facility] FOOT PROFESSIONA [place] 8931 OPEN WOUND 12-16-2010 [facility] [place] [address] HEAD 04-03-2010 [facility] INJURY, AMBULANCE UNSPECIFIED SERVICE 920 CONTUSION 04-02-2010 [facility] FACE [facility]ERG[facility]Y SCALP AND SERVICES [facility] EYE E8889 UNSPECIFIED 04-02-2010 [facility] 5210 DENTAL 03-04-2010 [facility] 7245 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-15-2010 [facility] BACKACHE AMBULANCE SERVICE 96336 ABDOMINAL 01-31-2010 [facility] PA[facility], MEDICAL UNSPECIFIED IMAGING SITE ASSOCIATES 75678 ABDOMINAL 01-31-2010 [facility] PAIN, AMBULANCE GENERALIZED SERVICE 26621 ULCER OF 01-30-2010 [facility] ANGY OTHER PART OF FOOT 04608 UNSPECIFIED 01-26-2010 [facility] PERIPHERAL [facility] VERTIGO SERVICES [facility] 7804 DIZZINESS 01-26-2010 [place] AND MEDICAL GIDDINESS IMAGING ASSOCIATES 7840 HEADACHE 01-26-2010 [facility] AMBULANCE SERVICE 4619 ACUTE 12-02-2009 [facility] SINUSITIS, [facility] PROF SERV 84756 POISONING 09-21-2009 [facility] BY OPIATES N EMERGENCY AND RELATED PHYS INC NARCOTICS OTHER V0481 NEED 09-17-2009 OLGA LYNCHACTCandy Guzmán VACCINATION &INOCULATIO N FLU 45211 HEMATURIA 07-27-2009 [facility] UNSPECIFIED AMBULANCE SERVICE 06853 ABDOMINAL 07-27-2009 [facility] PA[facility] OTHER EMERGENCY SPECIFIED SERVICES SITE ASSOCIATES 53952 PAIN IN 04-19-2009 BRITTNEY, JOINT, HAYLEY ANKLE AND FOOT 6829 CELLULITIS 02-23-2009 CRIS, AND ABSCESS GABI Boateng OF UNSPECIFIED SITE 5253 RETAINED 10-18-2008 [facility] DENTAL ROOT FOR ORAL&MAXILL OFACIAL SURGERY 67343 PAIN IN 07-15-2008 [facility] JOINT, AMBULANCE FOREARM SERVICE 44078 SPRAIN AND 07-15-2008 [place] STRAIN OF MEDICAL UNSPECIFIED IMAGING SITE OF ASSOCIATES WRIST E8497 PLACE OF 07-15-2008 [place] OCCURRENCE MEDICAL RESIDENTIAL IMAGING ASSOCIATES INSTITUTION E927 OVEREXERTIO 07-15-2008 [place] N&STRENUOUS MEDICAL &REPETITIVE IMAGING ASSOCIATES MVMNTS/LOAD S 49407 OSTEOARTHRO 06-23-2008 Agusto LYNCH INVLV MX GABI [...] 80 7- 1- 00 14 CA ve MD 01 20 20 72 RE AM 00 [...] AR MG MA CY TA BL ET MD 59 07 08 28 7 00 ME [...] 30 2- 4- 00 14 CA ve TN 31 20 20 58 RE DE 10 [...] 80 7- 8- 00 14 CA ve MD 01 20 20 53 RE AM 00 [...] 80 8- 7- 00 14 CA ve MD 01 20 20 35 RE AM 00 [...] D CY DR 40 MG TA B MD 59 06 07 28 7 00 ME [...] 20 2- 2- 00 14 CA ve MD 00 20 20 18 RE AM 60 [...] 20 4- 5- 00 14 CA ve MD 00 20 20 04 RE AM 60 [...] 20 7- 7- 00 13 CA ve MD 00 20 20 90 RE AM 60 [...] 20 7- 0- 00 13 CA ve MD 00 20 20 76 RE AM 60 [...] 80 0- 7- 00 13 CA ve MD 01 20 20 62 RE AM 00 [...] 80 1- 3- 00 13 CA ve MD 01 20 20 47 RE AM 00 [...] 00 1. 1 ME 36 AR Ac MD 78 -1 -0 00 D 71 NO [...] PLLC D/T ACTIVE DX HYPERTENS ION ECG 61353 [facility] STEPHENSON ROUTINE 7 PHYSICIAN U ECG S, PLLC W/LEAST 12 LDS I&R ONLY ECG 65065 KENA JAMES ROUTINE 7 PHYSICIAN ECG S, PLLC W/LEAST 12 LDS [place] [address] [facility] PEDROZA TROPONIN 7 MEM HOS[facility] MEM [facility] QUANTITAT INC INC SALONI BLOOD 32952 [facility] PEDROZA COUNT 7 [facility] COMPLETE INC INC AUTO&AUTO DIFRNTL WBC ECG 87882 [facility] PEDROZA ROUTINE 7 [facility] ECG INC INC W/LEAST 12 LDS TRCG ONLY W/O I&R PATIENT G9744 KENA JAMES NOT 7 PHYSICIAN ELIGIBLE S, PLLC D/T ACTIVE DX HYPERTENS ION COLLECTIO 02081 [facility] PEDROZA N VENOUS 7 [facility] BLOOD INC INC VENIPUNCT URE COMPREHEN 35901 [facility] PEDROZA SIVE 7 MEM H[facility] METABOLIC INC INC PANEL RADIOLOGI 14309 [facility] Guzmán 7 [facility] HOS[facility] MEM HOS[facility] EXAMINATI INC INC ON CHEST SINGLE VIEW FRONTAL AMB A0427 [facility] SERVICE 7 AMBULANCE AMBULANCE ALS SERVICE SERVICE EMERGENCY TRANSPORT LEVEL 1 COMPREHEN 54042 [facility] PEDROZA SIVE 7 MEM H[facility]OS[facility] METABOLIC INC INC PANEL CREATINE 25106 [facility] PEDROZA KINASE 7 MEM HOSP MEM [facility]OS[facility] TOTAL INC INC CREATINE 43260 [facility] PEDROZA KINASE MB 7 MEM HOS[facility] MEM [facility]OS[facility] FRACTION INC INC ONLY ECG 86485 [facility] PEDROZA ROUTINE 7 [facility] H[facility] MEM HOSP ECG INC INC W/LEAST 12 LDS TRCG ONLY W/O I&R GROUND A0425 RUBÉN [facility] MILEAGE 7 AMBULANCE AMBULANCE PER SERVICE SERVICE STATUTE MILE RADIOLOGI 28088 DOYLE Guzmán 7 MEDICAL EXAMINATI IMAGING ON CHEST ASS SINGLE VIEW FRONTAL BLOOD 46705 [facility] PEDROZA COUNT 7 MEM HOS[facility] MEM HOSP COMPLETE INC INC AUTO&[place] [address] [facility] PEDROZA TROPONIN 7 [facility]OS[facility] QUANTITAT INC INC SALONI ECG 91336 KE[facility] HECTOR ROUTINE 7 PHYSICIAN ECG S, PLLC W/LEAST 12 LDS I&R ONLY COLLECTIO 66529 COMBINED COMBINED N VENOUS 7 PHYSICIAN PHYSICIAN BLOOD S LA S LA VENIPUNCT URE TRAVEL [address] MED 7 PHYSICIAN PHYSICIAN NEC LAB S LA S LA SPEC; PRORATD TRIP CHRG BASIC 08661 COM[facility] COMBINED METABOLIC 7 PHYSICIAN PHYSICIAN [place] [address] [facility] PEDROZA TROPONIN 7 MEM HOS[facility] [place] [address] [facility] PEDROZA TROPONIN 7 [facility] QUANTITAT INC INC SALONI GROUND A0425 [facility] AMBULANCE PER SERVICE SERVICE STATUTE MILE ECG 25192 [facility] PEDROZA ROUTINE 7 [facility] ECG INC INC W/LEAST 12 LDS TRCG ONLY W/O I&R ECG 23923 KE[facility] PARKER ROUTINE 7 PHYSICIAN ECG S, PLLC W/LEAST 12 LDS I&R ONLY RADIOLOGI 53840 [facility] PEDROZA C EXAM 7 [facility] CHEST 2 INC INC VIEWS FRONTAL&L ATERAL BLOOD 05748 [facility] PEDROZA COUNT 7 [facility] COMPLETE INC INC AUTO&AUTO DIFRNTL WBC AMB A0427 [facility] SERVICE 7 AMBULANCE AMBULANCE ALS SERVICE SERVICE EMERGENCY TRANSPORT LEVEL 1 RADIOLOGI 22359 KENA PARKER C 7 PHYSICIAN EXAMINATI S, PLLC ON CHEST SINGLE VIEW FRONTAL CREATINE 39520 [facility] RODDY KINASE 7 MEM HOSP TOTAL INC COMPREHEN 38730 Y[facility]ANY SHALA SIVE 7 [place] [address] Y[facility] PEDROZA LIPASE 7 [place] [address] Y[facility] PEDROZA AMYLASE 7 [facility] H[facility]OS[facility] INC INC CREATINE 97228 [facility] PEEK KINASE MB 7 MEM HOSP FRACTION INC ONLY MYOCARDIA 57631 [facility] SRIVASTAV L SPECT 7 PHYSICIAN A MULTIPLE S GROUP STUDIES CV STRS [address]2343 [facility] TST 7 PHYSICIAN XERS&/OR S GROUP RX CONT ECG W/O I&R GROUND A0425 [facility]ANCE AMBULANCE PER SERVICE SERVICE STATUTE MILE ECG 38174 [facility] ROUTINE 7 PHYSICIAN ECG S, PLLC W/LEAST 12 LDS I&R ONLY AMB A0427 [facility] SERVICE 7 AMBULANCE AMBULANCE ALS SERVICE SERVICE EMERGENCY TRANSPORT LEVEL 1 ECG 40074 [facility] PEDROZA ROUTINE 7 [facility] ECG INC INC W/LEAST 12 LDS TRCG ONLY W/O I&R GROUND A0425 [facility] 7 AMBULANCE AMBULANCE PER SERVICE SERVICE STATUTE MILE CT THORAX 58426 [place] [address] MEDICAL W/CONTRAS IMAGING T ASS MATERIAL ECG 77763 [facility] ROUTINE 7 PHYSICIAN U ECG S, PLLC W/LEAST 12 LDS I&R ONLY AMB A0427 [facility] SERVICE 7 AMBULANCE AMBULANCE ALS SERVICE SERVICE EMERGENCY TRANSPORT LEVEL 1 RADIOLOGI 54816 [facility] C 7 MEDICAL EXAMINATI IMAGING ON CHEST ASS SINGLE VIEW FRONTAL BASIC 03252 [facility] COMBINED METABOLIC 7 PHYSICIAN PHYSICIAN PANEL S LA S LA CALCIUM TOTAL COLLECTIO 40748 COMBINED COMBINED N VENOUS 7 PHYSICIAN PHYSICIAN BLOOD S LA S LA VENIPUNCT URE TRAVEL [address] MED 7 PHYSICIAN PHYSICIAN NEC LAB S LA S LA SPEC; PRORATD TRIP CHRG TRAVEL [address] MED 6 PHYSICIAN PHYSICIAN NEC LAB S LA S LA SPEC; PRORATD TRIP CHRG COMPREHEN 05221 COM[facility] COMBINED SIVE 6 PHYSICIAN PHYSICIAN METABOLIC S LA S LA PANEL COLLECTIO 26612 COMBINED COMBINED N VENOUS 6 PHYSICIAN PHYSICIAN BLOOD S LA S LA VENIPUNCT URE BLOOD 12330 [facility] COMBINED COUNT 6 PHYSICIAN PHYSICIAN COMPLETE S LA S LA AUTO&AUTO DIFRNTL WBC BLOOD 63276 [facility] COMBINED COUNT 6 PHYSICIAN PHYSICIAN COMPLETE S LA S LA AUTO&AUTO DIFRNTL WBC COLLECTIO 42996 COMBINED COMBINED N VENOUS 6 PHYSICIAN PHYSICIAN BLOOD S LA S LA VENIPUNCT URE COMPREHEN 01987 COMBIN[facility] COMBINED SIVE 6 PHYSICIAN PHYSICIAN METABOLIC S LA S LA PANEL TRAVEL [address] MED 6 PHYSICIAN PHYSICIAN NEC LAB S LA S LA SPEC; PRORATD TRIP CHRG ECG 79679 [facility] NORRIS JR ROUTINE 6 [facility] W/LEAST P 12 LDS I&R ONLY GROUND A0425 [facility] AM[facility]ANCE PER SERVICE SERVICE STATUTE MILE CT THORAX 07449 [place] MURILLO ALL 6 MEDICAL W/CONTRAS IMAGING T ASS MATERIAL RADIOLOGI 41604 [facility] C 6 MEDICAL MEDICAL EXAMINATI IMAGING IMAGING ON CHEST ASS ASS SINGLE VIEW FRONTAL AMB A0427 [facility] SERVICE 6 AMBULANCE AMBULANCE ALS SERVICE SERVICE EMERGENCY TRANSPORT LEVEL 1 TRANS R0070 [facility] PRTBL 6 MOBILE MOBILE X-RAY DIAGNOSTI DIAGNOSTI EQP&PERS C SE C SE GINETTE/NRS GINETTE-TRIP 1 PT SET-UP Q0092 [facility] PORTABLE 6 MOBILE MOBILE X-RAY DIAGNOSTI DIAGNOSTI EQUIPMENT C SE C SE RADEX 60646 [facility] FOOT 6 MOBILE MOBILE COMPLETE DIAGNOSTI DIAGNOSTI MINIMUM 3 C SE C SE VIEWS CULTURE 63019 [facility] PEDRO[facility] BACTERIAL 6 [facility]OS[facility] INC INC QUANTTATI VE COLONY COUNT URINE CULTURE 65210 [facility] PEDRO[facility] BCT 6 MEM HOS[facility] MEM HOS[facility] ISOL&PRSM [place] [address] [facility] PEDROZA INFUSION 6 [facility] THER INC INC PROPH ADDL SEQUENTIA L TO 1 HR URNLS DIP 47658 [facility] PEDROZA 6 [facility] STICK/TAB INC INC LET REAGENT AUTO MICROSCOP Y SUSCEPTIB 34105 [facility] PEDRO[facility] LTY STDY 6 [facility] ANTIMICRB INC INC IAL MICRO/[place] [address] [facility] PEDROZA INFUSION 6 [facility] THERAPY/P INC INC ROPHYLAXI S /DX 1ST TO 1 HR THERAPEUT 56745 [facility] P[facility]RO[facility] IC 6 [facility] MEM HOSP INJECTION INC INC IV PUSH EACH NEW DRUG BLOOD 20416 [facility] PEDROZA COUNT 6 [facility] COMPLETE INC INC AUTO&[place] [address] [facility] PEDROZA TROPONIN 6 [facility] QUANTITAT INC INC SALONI ECG 82353 [facility] NORRIS JR ROUTINE 6 [facility] W/LEAST P 12 LDS I&R ONLY ECG 85620 [facility] PEDROZA ROUTINE 6 [facility] ECG INC INC W/LEAST 12 LDS TRCG ONLY W/O I&R GROUND A0425 [facility] MILEAGE 6 AMBULANCE AMBULANCE PER SERVICE SERVICE STATUTE MILE RADIOLOGI 52027 [facility] ALL 6 MEDICAL EXAMINATI IMAGING ON CHEST ASS SINGLE VIEW FRONTAL AMBULANCE A0429 [facility] SERVICE 6 AMBULANCE AMBULANCE B[place] [address] YOVANY PEDROZA ABDOMEN & 6 [facility] PELVIS INC INC W/O CONTRAST MATERIAL PATIENT [id number] KENA RENUSCH NOT 6 PHYSICIAN BRITTANEY IZAGUIRRE S, PLLC E.G. PT REFUSES URGENT/EM SIT 12-LEAD 3120F [facility] RENUSC ECG 6 PHYSICIAN BRITTANEY [place], [place] [address] YOVANY PEDROZA LIPASE 6 [facility] INC INC COMPREHEN 17968 YOVANY PEDROZA SIVE 6 [facility] METABOLIC INC INC PANEL TRAVEL [address] MED 6 PHYSICIAN PHYSICIAN NEC LAB S LA S LA SPEC; PRORATD TRIP CHR COLLECTIO 09491 COMBINED COMBINED N VENOUS 6 PHYSICIAN PHYSICIAN BLOOD S LA S LA VENIPUNCT URE BASIC 08693 COMBINED COMBINED METABOLIC 6 PHYSICIAN PHYSICIAN PANEL S LA S LA CALCIUM TOTAL DEBRIDEME 83061 NOEMI FRANKLIN NT NAIL 6 JAM JAM ANY METHOD 6/> PARING/CU 61698 NOEMI FRANKLIN TTING 6 JAM JAM BENIGN HYPERKERA TOTIC LESION 2-4 BLOOD 11026 YOVANY PEDROZA OCCULT 6 [facility] PEROXIDAS INC INC E ACTV QUAL FECES 1-3 [place] [address] YOVANY PEDROZA TROPONIN 6 [facility] QUANTITAT INC INC SALONI GROUND A0425 [facility] [place] MILEAGE 6 AMBULANCE AMBULANCE PER SERVICE SERVICE STATUTE MILE BLOOD 11784 YOVANY PEDROZA COUNT 6 [facility] COMPLETE INC INC AUTO&AUTO DIFRNTL WBC ECG 15027 YOVANY ECHEVARRIA ROUTINE 6 [facility] W/LEAST P 12 LDS I&R ONLY RADIOLOGI 67145 [facility] EXAM 6 MEDICAL ABDIRAHMAN CHEST 2 IMAGING VIEWS ASS FRONTAL&L ATERAL ECG 82686 YOVANY PEDROZA ROUTINE 6 [facility] ECG INC INC W/LEAST 12 LDS TRCG ONLY W/O I&R AMB A0427 [facility] [place] SERVICE 6 AMBULANCE AMBULANCE ALS SERVICE SERVICE EMERGENCY TRANSPORT LEVEL 1 CREATINE 94043 YOVANY PEDROZA KINASE MB 6 [facility] [place] [address] YOVANY PEDROZA AMYLASE 6 [facility] INC INC CREATINE 53389 YOVANY PEDROZA KINASE 6 [facility] [place] [address] YOVANY PEDROZA LIPASE 6 [facility] INC INC COMPREHEN 96887 YOVANY PEDROZA SIVE 6 [facility] METABOLIC INC INC PANEL TRAVEL [address] MED 6 PHYSICIAN PHYSICIAN NEC LAB S LA S LA SPEC; PRORATD TRIP CHRG COLLECTIO 74104 COMBINED COMBINED N VENOUS 6 PHYSICIAN PHYSICIAN BLOOD S LA S LA VENIPUNCT URE BASIC 21859 COMBINED COMBINED METABOLIC 6 PHYSICIAN PHYSICIAN PANEL S LA S LA CALCIUM TOTAL BLOOD 91283 COMBINED COMBINED COUNT 6 PHYSICIAN PHYSICIAN COMPLETE S LA S LA AUTO&AUTO DIFRNTL WBC TRIMMING 52032 NOEMI FRANKLIN NONDYSTRO 6 JAM JAM PHIC NAILS ANY NUMBER PARING/CU 60238 NOEMI FRANKLIN TTING 6 JAM JAM BENIGN HYPERKERA TOTIC LESION 2-4 DEBRIDEME 41874 NOEMI FRANKLIN NT NAIL 6 JAM JAM ANY METHOD 1-5 DEBRIDEME 32158 NOEMI ULRICHS NT NAIL 5 JAM JAM ANY METHOD 6/> PARING/CU 55720 NOEMI ULRICHS TTING 5 JAM JAM BENIGN HYPERKERA TOTIC LESION 2-4 NONEMERG A0120 FEDERATED FEDERATED TRNSPRT: 5 MINI-BUS TRANSPORT TRANSPORT MTN ATION SER ATION SER AREA/OT SYS RADIOLOGI 30276 [facility] C EXAM 5 MEDICAL ERUM CHEST 2 IMAGING VIEWS ASS FRONTAL&L ATERAL CT PELVIS 61973 [place] ALL W/O 5 MEDICAL CONTRAST IMAGING MATERIAL ASS RADIOLOGI 64729 [place] C 5 MEDICAL ABDIRAHMAN EXAMINATI IMAGING ON KNEE ASS 1/2 VIEWS RADEX HIP 70235 [place] 5 MEDICAL ABDIRAHMAN UNILATERA IMAGING L ASS COMPLETE MINIMUM 2 VIEWS RADIOLOGI 70310 [facility] C 5 MOBILE MOBILE EXAMINATI DIAGNOSTI DIAGNOSTI ON FEMUR C SE C SE 2 VIEWS DEBRIDEME 90194 NOEMI FRANKLIN NT NAIL 5 JAM JAM ANY METHOD 1-5 PARING/CU 69153 NOEMI ULRICHS TTING 5 JAM JAM BENIGN HYPERKERA TOTIC LESION 2-[place] [address] [place] ALL ABDOMEN & 5 MEDICAL PELVIS IMAGING W/O ASS CONTRAST MATERIAL CV STRS 59725 YOVANY NORRIS JR TST 5 [facility] XERS&/OR HOSPITAL RX CONT P ECG I&R ONLY MYOCARDIA 96300 YOVANY PEDROZA L SPECT 5 [facility] MULTIPLE INC INC STUDIES NONEMERG A0120 FEDERATED FEDERATED TRNSPRT: 5 MINI-BUS TRANSPORT TRANSPORT MTN ATION SER ATION SER AREA/OT SYS CV STRS 38229 [facility] TST 5 PHYSICIAN XERS&/OR S GROUP RX CONT ECG W/O I&R NONEMERG A0120 FEDERATED FEDERATED TRNSPRT: 5 MINI-BUS TRANSPORT TRANSPORT MTN ATION SER ATION SER AREA/OT SYS RADIOLOGI 40670 [facility] 5 MEDICAL ERUM EXAMINATI IMAGING ON CHEST ASS SINGLE VIEW FRONTAL RADIOLOGI 26986 YOVANY YOVANY C 5 [facility] EXAMINATI INC INC ON CHEST SINGLE VIEW FRONTAL ECG 35953 YOVANY AARONKEITH ROUTINE 5 [facility] W/LEAST P 12 LDS I&R ONLY RAD[facility]OLOGI 28777 [facility] 5 MEDICAL ERUM EXAMINATI IMAGING [place] [address] [facility] ABDOMEN & 5 MEDICAL ERUM PELVIS IMAGING W/O ASS CONTRAST MATERIAL PARING/CU 12998 BRAUDIS BRAUDIS TTING 5 JAM JAM BENIGN HYPERKERA TOTIC LESION 2-4 RADIOLOGI 76936 DOYLE YUNG C EXAM 4 MEDICAL ERUM CHEST 2 IMAGING VIEWS ASS FRONTAL&L ATERAL RADIOLOGI 94679 [facility] C EXAM 4 MOBILE MOBILE CHEST 2 DIAGNOSTI DIAGNOSTI VIEWS C SE C SE FRONTAL&L ATERAL NONEMERG A0120 FEDERATED FEDERATED TRNSPRT: 4 TRANS MINI-BUS TRANSPORT SERVBLUEG MTN ATION SER ROEL AREA/OTH SYS RADIOLOGI 61268 DOYLE Guzmán 4 MEDICAL ERUM EXAMINATI IMAGING ON CHEST ASS SINGLE VIEW FRONTAL ECG 82323 ALFARIS ALFARIS ROUTINE 4 MOH MOH ECG W/LEAST 12 LDS I&R ONLY RAD[facility]OLOGI 24425 [facility] C 4 MEDICAL ABDIRAHMAN EXAMINATI IMAGING ON CHEST ASS SINGLE VIEW FRONTAL NONEMERG A0120 FEDERATED FEDERATED TRNSPRT: 4 TRANS MINI-BUS TRANSPORT SERVBLUEG MTN ATION SER ROEL AREA/OTH SYS ECG 31720 JR NORRIS JR ROUTINE 4 DWI DWI ECG W/LEAST 12 LDS I&R ONLY RADIOLOGI 85252 [facility] BR[facility] C 4 MEDICAL ABDIRAHMAN EXAMINATI IMAGING ON CHEST ASS SINGLE VIEW FRONTAL CT THORAX 62905 YOVANY YOVANY W/O 4 [facility] CONTRAST INC INC MATERIAL NONEMERG A0120 FEDERATED FEDERATED TRNSPRT: 4 TRANS MINI-BUS TRANSPORT SERVBLUEG MTN ATION SER ROEL AREA/OTH SYS RADIOLOGI 69650 CHUCKNeli BRITTNEY Guzmán 4 MEDICAL ABDIRAHMAN EXAMINATI IMAGING ON CHEST ASS SINGLE VIEW FRONTAL ECG 11940 ASHWIN CHRISTOPHER ROUTINE 4 III MAXIM III MAXIM ECG W/LEAST 12 LDS I&R ONLY NONEMERG A0120 FEDERATED FEDERATED TRNSPRT: 4 MINI-BUS TRANSPORT TRANSPORT MTN ATION SER ATION SER AREA/OTH SYS NONEMERG A0120 FEDERATED FEDERATED TRNSPRT: 4 [facility]-BUS TRANSPORT TRANSPORT MTN ATION SER ATION SER AREA/[place] [address] RASLAU RASLAU ANGIOGRAP 4 FLA FLA HY HEAD W/CONTRAS T/[place] [address] RASLAU RASLAU ANGIOGRAP 4 FLA FLA HY NECK W/CONTRAS T/NONCONT RAST CRITICAL 49179 CHIQUITA LYDIA CHIQUITA LYDIA CARE 4 ILL/INJUR ED PATIENT INIT 30-74 MIN DEBRIDEME 51084 NOEMI FRANKLIN NT NAIL 4 JAM JAM ANY METHOD 6/> PARING/CU 02096 NOEMI FRANKLIN TTING 4 JAM JAM BENIGN HYPERKERA TOTIC LESION 2-4 INJ J0702 PETTEY PETTEY BETAMETHA 3 JAM JAM SONE ACETATE & PHOSPHATE 3 MG RADIOLOGI 25749 YOVANY PEDROZA C EXAM 3 [facility] KNEE INC INC COMPLETE 4/MORE VIEWS ARTHROCEN 20702 PETTEY PETTEY TESIS 3 JAM JAM ASPIR&/IN J MAJOR JT/BURSA W/O US NONEMERG A0120 LKLP CAC LKLP CAC TRNSPRT: 3 INC INC MINI-BUS REGION 11 REGION 11 MTN AREA/OTH SYS NONEMERG A0120 LKLP CAC LKLP CAC TRNSPRT: 3 INC INC MINI-BUS REGION 11 REGION 11 MTN AREA/OTH SYS ECG 99011 YOVANY PEDROZA ROUTINE 2 [facility] ECG INC INC W/LEAST 12 LDS TRCG ONLY W/O I&R RADIOLOGI 39678 BRITTNEY BRITTNEY C 2 ABDIRAHMAN ABDIRAHMAN EXAMINATI ON CHEST SINGLE VIEW FRONTAL ECG 51097 JR NORRIS JR ROUTINE 2 DWI DWI ECG W/LEAST 12 LDS I&[place] [address] [place] MAXILLOFA 2 MEDICAL ABDIRAHMAN CIAL W/O IMAGING CONTRAST ASS MATERIAL OBSERVATI 83062 SWATHI ECHEVARRIA ON CARE 2 [place] [address] [place] HEAD/BRAI 2 MEDICAL ABDIRAHMAN N W/O IMAGING CONTRAST ASS MATERIAL RADIOLOGI 58443 [place] C EXAM 2 MEDICAL ABDIRAHMAN CHEST 2 IMAGING VIEWS ASS FRONTAL&L ATERAL ECG 10300 LEYDI HOLLEY ROUTINE 2 EMERGENCY EMERGENCY ECG SERVICES SERVICES W/LEAST 12 LDS I&R ONLY ECG 26886 JR NORRIS JR ROUTINE 2 DWI DWI ECG W/LEAST 12 LDS I&R ONLY XTRNL ECG 11301 YOVANY EPDROZA & 48 HR 2 [facility] RECORDING INC INC EXTERNAL 33403 YOVANY YOVANY ECG 2 [facility] SCANNING INC INC ANALYSIS REPORT XTRNL ECG 28371 MCKEMIE MCKEMIE 2 JR MAXIM JR MAXIM CONTINUOU S RHYTHM W/I&R UP TO 48 HRS ECG 78591 YOVANY PEDROZA ROUTINE 2 [facility] ECG INC INC W/LEAST 12 LDS TRCG ONLY W/O I&R ECG 12085 MCKEMIE MCKEMIE ROUTINE 2 JR MAXIM JR MAXIM ECG W/LEAST 12 LDS I&R ONLY RADIOLOGI 27044 [place] BR[place] C 2 MEDICAL ABDIRAHMAN EXAMINATI IMAGING ON CHEST ASS SINGLE VIEW FRONTAL MYOCARDIA 14476 BILL KHAN L SPECT 2 DENISE DENISE MULTIPLE STUDIES MYOCARDIA 01697 YOVANY PEDROZA L SPECT 2 [facility] MULTIPLE INC INC STUDIES CV STRS 76093 JR JR JR JR TST 2 DWI DWI XERS&/OR RX CONT ECG I&R ONLY CV STRS 68444 JEROMY RENAE TST 2 XERS&/OR RX CONT ECG W/O I&R CV STRS 04267 YOVANY PEDROZA TST 2 [facility] XERS&/OR INC INC RX CONT ECG TRCG ONLY NONEMERG A0120 LKLP LKLP TRNSPRT: 2 [facility] ACTION ACTION MTN AREA/OTH SYS ECG 27874 BESSON BESSON ROUTINE 2 LYDIA LYDIA ECG W/LEAST 12 LDS I&R ONLY ECG 36134 TAWNY TWANY ROUTINE 2 ANIRUDH ANIRUDH ECG W/LEAST 12 LDS I&R ONLY NONEMERG A0120 LKLP LKLP TRNSPRT: 2 [facility] ACTION MTN AREA/OTH SYS RADIOLOGI 26673 DOYLE Guzmán 2 MEDICAL ABDIRAHMAN EXAMINATI IMAGING ON CHEST ASS SINGLE VIEW FRONTAL ECG 52016 LISETTE KNOX ROUTINE 2 MAXIM MAXIM ECG W/LEAST 12 LDS I&R ONLY TRIMMING 71015 BRAUDIS BRAUDIS NONDYSTRO 2 JAM JAM PHIC NAILS ANY NUMBER PARING/CU 44696 BRAUDIS BRAUDIS TTING 2 JAM JAM BENIGN HYPERKERA TOTIC LESION 2-4 PARING/CU 04753 BRAUDIS BRAUDIS TTING 2 JAM JAM BENIGN HYPERKERA TOTIC LESION 2-4 TRIMMING 49200 BRAUDIS BRAUDIS NONDYSTRO 2 JAM JAM PHIC NAILS ANY NUMBER BLOOD 91585 YOVANY PEDROZA COUNT 1 [facility] COMPLETE INC INC AUTO&AUTO DIFRNTL WBC ECG 12216 LEYDI CHRISTOPHER ROUTINE 1 EMERGENCY III MAXIM ECG SERVICES W/LEAST 12 LDS I&R ONLY RADIOLOGI 02584 YOVANY PEDROZA C 1 [facility] EXAMINATI INC INC [place] [address] YOVANY PEDROZA TROPONIN 1 [facility] QUANTITAT INC INC SALONI ECG 80068 YOVANY PEDROZA ROUTINE 1 [facility] ECG INC INC W/LEAST 12 LDS TRCG ONLY W/O I&R COMPREHEN 21802 YOVANY YOVANY SIVE 1 [facility] METABOLIC INC INC PANEL CREATINE 70500 YOVANY PEDROZA KINASE 1 [facility] TOTAL INC INC CREATINE 04155 YOVANY PEDROZA KINASE MB 1 [facility] FRACTION INC INC ONLY URNLS DIP 93476 COMBINED COMBINED 1 PHYSICIAN PHYSICIAN STICK/TAB S LA S LA LET REAGENT AUTO MICROSCOP Y RADIOLOGI 47853 YOVANY PEDROZA C 1 [facility] EXAMINATI INC INC ON CHEST SINGLE VIEW FRONTAL AMB A0427 [facility] SERVICE 1 AMBULANCE AMBULANCE ALS SERVICE SERVICE EMERGENCY TRANSPORT LEVEL 1 COMPREHEN 74852 YOVANY PEDROZA SIVE 1 [facility] METABOLIC INC INC PANEL GROUND A0425 [facility] MILEAGE 1 AMBULANCE AMBULANCE PER SERVICE SERVICE STATUTE MILE BLOOD 76692 YOVANY PEDROZA COUNT 1 [facility] COMPLETE INC INC AUTO&AUTO DIFRNTL WBC PRESSURIZ 87204 YOVANY PEDROZA ED/NONPRE 1 [facility] SSURIZED [place] [address] YOVANY PEDROZA INFUSION 1 [facility] THERAPY/P INC INC ROPHYLAXI S /DX 1ST TO 1 HR THERAPEUT 37863 YOVANY PEDROZA IC 1 [facility] INJECTION INC INC IV PUSH EACH NEW DRUG NONEMERGE A0100 [facility] CAB [address] 1 COMMUNITY TRANSPORT ACTION ATION; TAXI DEBRIDEME 36986 [facility] OPEN 1 Y Y WOUND 20 [facility] SQ CM/< DEBRIDEME 73438 [facility] OPEN 1 Y Y WOUND 20 [facility] SQ CM/< DEBRIDEME 00859 [facility] OPEN 1 FOOT FOOT WOUND 20 PROFESSIO PROFESSIO SQ CM/< NALS NALS NONEMERGE A0100 [facility] TRANSP[facility] ACTION ATION; TAXI RADEX 54248 [place] [facility] J[facility] FOOT 1 MEDICAL COMPLETE SERV MINIMUM 3 FOUNDATIO VIEWS URNLS DIP 60690 COMBINED COMBINED 1 PHYSICIAN PHYSICIAN STICK/TAB S LA S LA LET REAGENT AUTO MICROSCOP Y NONEMERGE A0100 [facility] CAB NCY 0 COMMUNITY TRANSPORT ACTION ATION; TAXI URNLS DIP 29040 COMBINED COMBINED 0 PHYSICIAN PHYSICIAN STICK/TAB S LA S LA LET REAGENT AUTO MICROSCOP Y URNLS DIP 28757 COMBINED COMBINED 0 PHYSICIAN PHYSICIAN STICK/TAB S LA S LA LET REAGENT AUTO MICROSCOP Y CULTURE 72373 COMBINED COMBINED BACTERIAL 0 PHYSICIAN PHYSICIAN S LA S LA QUANTTATI VE COLONY COUNT URINE GROUND A0425 [facility] MILEAGE 0 AMBULANCE AMBULANCE PER SERVICE SERVICE STATUTE MILE AMBULANCE A0429 [facility] SERVICE 0 AMBULANCE AMBULANCE BLS SERVICE SERVICE EMERGENCY TRANSPORT ORTHOPANT 11262 THE LETA, OGRAM 0 IMPLANT & ERIC R ORAL SURGERY [facility] ECG 07131 YOVANY NORRIS, ROUTINE 0 [place] W/LEAST PROF SERV 12 LDS I&R ONLY ECG 56494 YOVANY PEDROZA ROUTINE 0 [facility] ECG INC INC W/LEAST 12 LDS TRCG ONLY W/O I&R ECG 67131 YOVANY PEDROZA ROUTINE 0 [facility] ECG INC INC W/LEAST 12 LDS TRCG ONLY W/O I&R GROUND A0425 [facility] PER SERVICE SERVICE STATUTE MILE AMBULANCE A0429 [facility] SERVICE 0 AMBULANCE AMBULANCE BLS SERVICE [place] [address] YOVANY PEDROZA TROPONIN 0 [facility] QUANTITAT INC INC SALONI ECG 02706 YOVANY NORRIS, ROUTINE 0 [place] W/LEAST PROF SERV 12 LDS I&R ONLY BLOOD 23433 YOVANY PEDROZA COUNT 0 [facility] COMPLETE INC INC AUTO&AUTO DIFRNTL WBC URNLS DIP 05690 YOVANY PEDROZA 0 [facility] STICK/TAB INC INC LET REAGENT AUTO MICROSCOP Y BASIC 02219 YOVANY PEDROZA METABOLIC 0 [facility] PANEL INC INC CALCIUM TOTAL CREATINE 33819 YOVANY PEDROZA KINASE MB 0 [facility] FRACTION INC INC ONLY CREATINE 51347 YOVANY PEDROZA KINASE 0 [facility] TOTAL INC INC CREATINE 68119 YOVANY PEDROZA KINASE 0 [facility] [address] YOVANY PEDROZA LIPASE 0 [facility] INC INC COMPREHEN 07572 YOVANY PEDROZA SIVE 0 [facility] METABOLIC INC INC PANEL CREATINE 06237 YOVANY PEDROZA KINASE MB 0 [facility] [place] [address] YOVANY PEDROZA AMYLASE 0 [facility] INC INC URNLS DIP 35019 YOVANY PEDROZA 0 [facility] STICK/TAB INC INC LET REAGENT AUTO MICROSCOP Y BLOOD 49948 YOVANY PEDROZA COUNT 0 [facility] COMPLETE INC INC AUTO&AUTO DIFRNTL WBC ECG 64999 LEYDI HECTOR, ROUTINE 0 EMERGENCY ALEX S ECG SERVICES W/LEAST 12 LDS ASSOCIATE I&R ONLY S RADEX ABD 02730 YOVANY PEDROZA COMPL 0 [facility] AQT ABD INC INC W/S/E/D VIEWS 1 [place] [address] YOVANY PEDROZA TROPONIN 0 [facility] QUANTITAT INC INC SALONI AMBULANCE A0429 [facility] SERVICE 0 AMBULANCE AMBULANCE BLS SERVICE SERVICE EMERGENCY TRANSPORT GROUND A0425 RUBÉN [facility] MILEAGE 0 AMBULANCE AMBULANCE PER SERVICE SERVICE STATUTE MILE ECG 00916 YOVANY YOVANY ROUTINE 0 [facility] ECG INC INC W/LEAST 12 LDS TRCG ONLY W/O I&R DEBRIDEME 11994 ASHA BARRY NT SKIN [address] [place] [address] YOVANY YOVANY HEAD/BRAI 0 [facility] N W/O INC INC CONTRAST MATERIAL 3D 31343 YOVANY PEDROZA RENDERING 0 [facility] W/INTERP INC INC & POSTPROCE SS SUPERVISI ON AMB A0427 [facility] 0 AMBULANCE AMBULANCE ALS SERVICE SERVICE EMERGENCY TRANSPORT LEVEL 1 GROUND A0425 [facility] MILEAGE 0 AMBULANCE AMBULANCE PER SERVICE SERVICE STATUTE MILE BLOOD 76086 COMBINED COMBINED COUNT 0 PHYSICIAN PHYSICIAN COMPLETE S LAB S LAB AUTO&AUTO DIFRNTL WBC COLLECTIO 04846 COMBINED COMBINED N VENOUS 0 PHYSICIAN PHYSICIAN BLOOD S LAB S LAB VENIPUNCT URE TRAVEL [address] MED 0 PHYSICIAN PHYSICIAN NEC LAB S LAB S LAB SPEC; PRORATD TRIP CHRG DEBRIDEME 30633 FOLLMER FOLLMER NT SKIN 0 ANGY ANGY PARTIAL THICKNESS THERAPEUT 26546 YOVANY PEDROZA IC 0 [facility] INJECTION INC [place] [address] YOVANY PEDROZA INFUSION 0 [facility] THERAPY/P INC INC ROPHYLAXI S /DX 1ST TO 1 HR CREATINE 07048 YOVANY PEDROZA KINASE MB 0 [facility] FRACTION INC INC ONLY CREATINE 34176 YOVANY PEDROZA KINASE 0 [facility] TOTAL INC INC AMB A0427 [facility] SERVICE 0 AMBULANCE AMBULANCE ALS SERVICE SERVICE EMERGENCY TRANSPORT LEVEL 1 3D 32985 YOVANY PEDROZA RENDERING 0 [facility] W/INTERP INC INC & POSTPROCE SS SUPERVISI ON BASIC 74524 YOVANY PEDROZA METABOLIC 0 [facility] [address] YOVANY PEDROZA HEAD/BRAI 0 [facility] N W/O INC INC CONTRAST MATERIAL HEPATIC 67643 YOVANY PEDROZA FUNCTION 0 [facility] PANEL INC INC BLOOD 37316 YOVANY PEDROZA COUNT 0 [facility] COMPLETE INC INC AUTO&AUTO DIFRNTL WBC ECG 70025 LEYDI HECTOR, ROUTINE 0 EMERGENCY ALEX S ECG SERVICES W/LEAST 12 LDS ASSOCIATE I&R ONLY S GROUND A0425 [facility] MILEAGE 0 AMBULANCE AMBULANCE [place] [address] YOVANY PEDROZA TROPONIN 0 [facility] QUANTITAT INC INC SALONI ECG 19094 YOVANY PEDROZA ROUTINE 0 [facility] ECG INC INC W/LEAST 12 LDS TRCG ONLY W/O I&R DUP-SCAN 16520 YOVANY PEDROZA XTR VEINS 9 [facility] INC INC UNILATERA L/LIMITED STUDY GROUND A0425 [facility] 9 AMBULANCE AMBULANCE PER SERVICE SERVICE STATUTE MILE AMBULANCE A0429 [facility] SERVICE 9 AMBULANCE AMBULANCE BLS SERVICE SERVICE EMERGENCY TRANSPORT AMBULANCE A0429 JESSAMINE JESSAMINE SERVICE 9 CO CO BLS AMBULANCE AMBULANCE EMERGENCY TRANSPORT GROUND A0425 JESSAMINE JESSAMINE MILEAGE 9 CO CO PER AMBULANCE AMBULANCE STATUTE MILE ECG 40934 [facility] ROUTINE 9 [facility] ECG W/LEAST 12 LDS TRCG ONLY W/O I&R ECG 06420 [facility], ROUTINE 9 RADHA DMITRIY G ECG EMERGENCY W/LEAST PHYS INC 12 LDS I&R ONLY IIV3 20021 CRIS LYNCH, VACCINE 9 GABI W GABI Boateng SPLIT VIRUS 0.5 ML DOSAGE IM USE ADMINISTR G0008 CRIS LYNCH, ATION OF 9 GABI W GABI W INFLUENZA VIRUS VACCINE BASIC 31221 YOVANY PEDROZA METABOLIC 9 [facility] PANEL INC INC CALCIUM TOTAL URNLS DIP 05644 YOVANY PEDROZA 9 [facility] STICK/TAB INC [place] [address] YOVANY PEDROZA ABDOMEN 9 [facility] W/O INC INC CONTRAST MATERIAL BLOOD 53034 YOVANY PEDROZA COUNT 9 [facility] COMPLETE INC INC AUTO&AUTO DIFRNTL WBC 3D 62008 DOYLE CARATGENA, RENDERING 9 MEDICAL GABRIELLA P IMAGING W/INTERP& ASSOCIATE POSTPROC S DIFF WORK STATION GROUND A0425 [facility] 9 AMBULANCE AMBULANCE PER SERVICE SERVICE STATUTE MILE AMBULANCE A0429 [facility] SERVICE 9 AMBULANCE AMBULANCE BLS SERVICE SERVICE EMERGENCY TRANSPORT CT PELVIS 04147 YOVANY PEDROZA W/O 9 [facility] CONTRAST INC INC MATERIAL RADIOLOGI 09394 [facility] C 9 [facility] EXAMINATI ON KNEE 3 VIEWS SET-UP Q0092 [facility] PORTABLE 9 LLC [facility] X-RAY EQUIPMENT TRANS R0075 [facility] PRTBL 9 [facility] XRAY EQP&PERS GINETTE/NRS GINETTE-TRIP> 1 PT URNLS DIP 80644 COMBINED COMBINED 9 PHYSICIAN PHYSICIAN STICK/TAB S LAB S LAB LET REAGENT AUTO MICROSCOP Y DEBRIDEME 90488 ASHA BARRY, NT SKIN 9 ANGY S ANGY S PARTIAL THICKNESS MRI LOWER 29471 BRITTNEYJOSEBRITTNEY, EXTREM 9 HAYLEY HAYLEY OTH/THN JT W/O & [place] [address] COMBINED COMBINED UREA 9 PHYSICIAN PHYSICIAN NITROGEN S LAB S LAB QUANTITAT SALONI COLLECTIO 41281 COMBINED COMBINED N VENOUS 9 PHYSICIAN PHYSICIAN BLOOD S LAB S LAB VENIPUNCT URE TRAVEL [address] MED 9 PHYSICIAN PHYSICIAN NEC LAB S LAB S LAB SPEC; PRORATD TRIP CHRG CREATININ 01083 COMBINED COMBINED E BLOOD 9 PHYSICIAN PHYSICIAN S LAB S LAB DEBRIDEME 34615 ASHA BARRY, NT SKIN 9 ANGY S ANGY S PARTIAL THICKNESS DEBRIDEME 50111 ASHA BARRY, NT SKIN 9 ANGY S ANGY S PARTIAL THICKNESS DEBRIDEME 84441 BOBBI BARRYMER, NT SKIN 9 ANGY S ANGY S PARTIAL THICKNESS RADIOLOGI 91013 ASHA BARRY, C 9 ANGY S ANGY S EXAMINATI ON FOOT 2 VIEWS SBSQ 98901 CRIS LYNCH, NURSING 9 GABI Boateng FACIL CARE/DAY MINOR COMPLJ 15 MIN ORTHOPANT 93962 [place] KARAN ESTRADA 8 FOR EDENILSON E ORAL&MAXI LLOFACIAL SURGERY IIV3 04894 CRIS LYNCH, VACCINE 8 GABI Boateng SPLIT VIRUS 0.5 ML DOSAGE IM USE ADMINISTR G0008 CRIS LYNCH, ATION OF 8 GABI Boateng INFLUENZA VIRUS VACCINE TRAVEL [address] MED 8 PHYSICIAN PHYSICIAN NEC LAB S LAB S LAB SPEC; PRORATD TRIP CHRG COLLECTIO 67142 COMBINED COMBINED N VENOUS 8 PHYSICIAN PHYSICIAN BLOOD S LAB S LAB VENIPUNCT URE BASIC 33489 COMBINED COMBINED METABOLIC 8 PHYSICIAN PHYSICIAN PANEL S LAB S LAB CALCIUM TOTAL BLOOD 93457 COMBINED COMBINED COUNT 8 PHYSICIAN PHYSICIAN COMPLETE S LAB S LAB AUTO&AUTO DIFRNTL WBC GROUND A0425 [facility] PER SERVICE SERVICE STATUTE MILE AMBULANCE A0429 [facility] SERVICE 8 AMBULANCE AMBULANCE BLS SERVICE SERVICE EMERGENCY TRANSPORT RADEX 68569 YOVANY PEDROZA WRIST 8 [facility] COMPLETE INC INC MINIMUM 3 VIEWS SBSQ 03106 CRIS LYNCH, NURSING 8 GABI Boateng FACIL CARE/DAY MINOR COMPLJ 15 MIN SBSQ 09119 CRIS LYNCH, NURSING 8 GABI Boateng FACIL CARE/DAY MINOR COMPLJ 15 MIN Encounters Encounter Start End Date Code Location Performer Type Date EMERGENCY 73370 KENA STEPHENSON DEPT 7 7 PHYSICIAN U VISIT S, [facility] HIGH SEVERITY& THREAT FUN EMERGENCY 78820 YOVANY 7 7 [facility] T VISIT LOW/MODER SEVERITY EMERGENCY 50196 KENA JAMES DEPT 7 7 PHYSICIAN VISIT S, PLLC [facility]IGH SEVERITY& THREAT [facility] YOVANY - [address] [facility] EMERGENCY 01317 YOVANY 7 7 [facility] T VISIT HIGH/URGE NT SEVERITY EMERGENCY 52288 KENA HECTOR DEPT 7 7 PHYSICIAN VISIT S, PLLC HIGH SEVERITY& THREAT [facility] YOVANY Gifford 7 7 [facility] YOVANY Gifford [address] [facility] 02240 YOVANY 7 7 [facility] T VISIT HIGH/URGE NT SEVERITY EMERGENCY 49999 [facility] DEPT 7 7 PHYSICIAN VISIT S, [facility] HIGH SEVERITY& THREAT [facility] 24482 [facility] DEPT 7 7 PHYSICIAN VISIT S, [facility] HIGH SEVERITY& THREAT [facility] YOVANY - 7 7 [facility]ERGENCY 83335 [facility] 7 PHYSICIAN U VISIT S, [facility] HIGH SEVERITY& THREAT [facility] 35321 [facility] DEPT 6 6 PHYSICIAN BRITTANEY VISIT S, [facility] HIGH SEVERITY& THREAT [facility] - 6 6 [facility] EMERGENCY 89818 [facility] 6 6 [facility] VISIT MODERATE SEVERITY [facility] - 6 6 [facility] OFFICE 16054 [facility] 5 5 CLAUDINE BOWLES PHYSICIAN NEW/ESTAB S ASSIST PATIENT 60 MIN [facility] 5 5 [facility] - 5 5 [facility] - 5 5 [facility] - 4 4 [facility] - 3 3 [facility] - 2 2 [facility] - 2 2 [facility] - 2 2 [facility] - 2 2 [facility] EMERGENCY 97391 LEYDI CHRISTOPHER DEPT 1 1 EMERGENCY III MAXIM VISIT SERVICES HIGH SEVERITY& THREAT [facility] - 1 1 [facility] T EMERGENCY 05335 [facility] 1 1 [facility] T VISIT HIGH/URGE NT SEVERITY [facility]OSP[facility] - [address] [facility] OUTPATIEN [facility] T EMERGENCY 27434 [facility] T VISIT HIGH/URGE NT SEVERITY EMERGENCY 17880 LEYDI CHRISTOPHER DEPT 1 1 EMERGENCY III MAXIM VISIT SERVICES HIGH SEVERITY& THREAT [facility] - 1 1 [facility] UNIVERS[facility] - 1 1 Y [facility] OFFICE 83462 [facility] 1 1 FOOT FOOT T [facility] 30 PROFESSIO PROFESSIO MINUTES NALS NALS EMERGENCY 71717 [facility] 0 [facility]/M INOR PROB EMERGENCY 17633 LEYDI HECTOR, 0 0 EMERGENCY [facility] SERVICES T VISIT HIGH/URGE ASSOCIATE NT S [facility] YOVANY - [address] [facility] 04903 [facility] 0 0 IMPLANT & ERIC R T NEW 20 ORAL MINUTES [facility] EMERGENCY 44541 LEYDI HECTOR, KARINT 0 0 EMERGENCY [facility] VISIT SERVICES HIGH SEVERITY& ASSOCIATE THREAT S [facility] YOVANY - [address] [facility] 90939 [facility] 0 [facility] T VISIT HIGH/URGE NT SEVERITY EMERGENCY 18817 LEYDI HECTOR, KARINT 0 0 EMERGENCY [facility] VISIT SERVICES HIGH SEVERITY& ASSOCIATE THREAT S [facility] 79473 [facility] 0 0 [facility] INC T VISIT HIGH/URGE NT SEVERITY [facility] - 0 0 [facility] T [facility] - 0 0 [facility] INC T EMERGENCY 98452 LEYDI CHRISTOPHER DEPT 0 0 EMERGENCY III, VISIT SERVICES LUISANA HIGH SEVERITY& ASSOCIATE THREAT S [facility] 06858 [facility] 0 0 [facility] DEPART[facility] INC T VISIT MODERATE SEVERITY EMERGENCY 38037 LEYDI HECTOR, DEPT 0 0 EMERGENCY ALEX S VISIT SERVICES HIGH SEVERITY& ASSOCIATE THREAT S [facility] YOVANY - 0 0 [facility] T EMERGENCY 71075 [facility] 0 0 [facility] DEPART[facility] INC T VISIT HIGH/URGE NT SEVERITY OFFICE 29155 ASHA BARRY, [facility] ANGY S ANGY S T VISIT 10 MINUTES EMERGENCY 65040 [facility] 9 9 [facility] DE[facility] INC T VISIT LOW/MODER SEVERITY [facility] - 9 9 [facility] [address] [facility] 9 9 RADHA IZAGUIRRE [facility] EMERGENCY T VISIT [facility] INC MODERATE [facility]VERITY EMERGENCY [id number] [facility] DEPT 9 9 HOSPITAL VISIT HIGH SEVERITY& THREAT [facility] - 9 9 HOSPITAL OUTPATIEN EMERGENCY 10215 [facility] 9 9 [facility] DEPARTMEN INC T VISIT HIGH/URGE NT SEVERITY EMERGENCY 21799 [facility] DE[facility] 9 9 EMERGENCY ALEX S VISIT SERVICES HIGH SEVERITY& ASSOCIATE THREAT S [facility] - 9 9 [facility] INC T OFFICE [id number] [facility] OUTPATIEN 9 9 ANGY S ANGY S T VISIT 10 MINUTES OFFICE [id number] [facility] OUTPATIEN 9 9 ANGY S ANGY S T VISIT 10 MINUTES OFFICE [id number] [facility] OUTPATIEN 9 9 ANGY S ANGY S T NEW 30 MINUTES OFFICE 62004 [facility] JUSTIN HUNTER 8 8 FOR EDENILSON Chen NEW 10 ORAL&MAXI MINUTES LLOFACIAL SURGERY EMERGENCY 63898 [facility] 8 8 [facility] DEPARTMEN INC T VISIT MODERATE SEVERITY [facility]OSPITAL [facility] - 8 8 [facility] OUTPATIEN INC T
--- OUTSIDE RECORDS SUMMARY | 2017-08-20 17:53 | External Medical Summary Rpt | CCD ---
Author Author , [facility] Organization [employer] Address Unknown Phone [email or web address] Team Providers Care Home Health Clinician Name Role Phone ALFARIS MOH, ALFARIS Unavailable Unavailable MOH GABI LYNCH, Unavailable Unavailable GABI LYNCH ERUM, BEINEKE Unavailable Unavailable ERUM BESSON, BESSON Unavailable Unavailable BESSON YLDIA, BESSON Unavailable Unavailable LYDIA BESSON LYDIA, BESSON Unavailable Unavailable LYDIA BESSON, ADRIAN A, Unavailable Unavailable BESSON, ADRIAN A MURILLO, MURILLO Unavailable Unavailable MURILLO ALL, MURILLO ALL Unavailable Unavailable BRAUDIS JAM, BRAUDIS Unavailable Unavailable JAM BRAUDIS JAM, BRAUDIS Unavailable Unavailable JAM [facility] Unavailable Unavailable SERVICE, [facility] Unavailable Unavailable SERVICE, [facility], [facility] Unavailable Unavailable [facility] Unavailable [...] ANGY S, Unavailable Unavailable FOLLMER, ANGY S HUNTER, EDENILSON E, HUNTER, Unavailable Unavailable TAWNY HESS Unavailable Unavailable TAWNY ANIRUDH, TAWNY Unavailable Unavailable ANIRUDH ALEX HECTOR, Unavailable Unavailable ALEX HECTOR [facility] Unavailable Unavailable INC, [facility] Unavailable Unavailable HOSPITAL P, [facility] P [facility], Unavailable Unavailable [facility] DMITRIY TREVIZO, Unavailable Unavailable DMITRIY [...] SHIRA E, Unavailable Unavailable JR, SHIRA E [facility] Unavailable Unavailable 11, [facility] 11 [facility] Unavailable Unavailable ACTION, [facility] Unavailable Unavailable SERVICES, [facility] MCKEMIE MAXIM, Unavailable Unavailable ETIENNEKEMIE MAXIM HANY DANIEL MAXIM, Unavailable Unavailable HANY DANIEL MAXIM HANY DANIEL LUISANA Unavailable Unavailable F, LUISANA LEACH JR F ERIC GILLETTE, Unavailable Unavailable ERIC GILLETTE R [facility] Un[facility], [facility] GABRIELLA CARTAGENA, Unavailable Unavailable [facility]RIE[facility], Unavailable Unavailable PLLC, [facility] PEEK, PEEK Unavailable Unavailable PETTEY JAM, PETTEY Unavailable Unavailable JAM PETTEY JAM, PETTEY Unavailable Unavailable JAM [facility], Unavailable Unavailable [facility] RASLAU FLA, RASLAU Unavailable Unavailable FLA RASLAU FLA, RASLAU Unavailable Unavailable FLA RENUSCH, RENUSCH Unavailable Unavailable RENUSCH BRITTANEY, RENUSCH Unavailable Unavailable BRITTANEY CHIQUITA LYDAI, CHIQUITA LYDIA Unavailable Unavailable CHIQUITA LYDIA, CHIQUITA LYDIA Unavailable Unavailable LISETTE MAXIM, LISETTE Unavailable Unavailable MAXIM SOTINGEANU, Unavailable Unavailable [facility] CASTILLO, Unavailable Unavailable CASTILLO [facility], Unavailable Unavailable [facility] SHALA, SHALA Unavailable Unavailable [facility] Unavailable Unavailable ASSIST, [facility], Unavailable Unavailable [facility] WEHRMAN III MAXIM, Unavailable Unavailable WEHRMAN III MAXIM WEHRMAN III MAXIM, Unavailable Unavailable WEHRMAN III MAXIM WEHRMAN IIILUISANA, Unavailable Unavailable ASHWIN IIILUISANA WISE JAM Unavailable Unavailable Purpose Continuity of Care Document - 12-15-2007 through 2016 Problems Code Diagnosis DOS Provider Status I10 ESSENTIAL 07-31-2017 [facility], HYPERTENSIO PLL N R0789 OTHER CHEST 06-08-2017 [facility] K219 GASTRO-ESOP 04-26-2017 [facility] DISEASE INC WITHOUT ESOPHAGITIS R079 CHEST PAIN 04-26-2017 [place] [facility] Z720 TOBACCO USE 04-26-2017 [facility] INC R918 OTHER 04-08-2017 [place] NONSPECIFIC MEDICAL ABNORMAL IMAGING ASS FINDING OF LUNG FIELD H10865 OTHER LONG 04-08-2017 [facility] P DRUG THERAPY D649 ANEMIA 03-12-2017 [facility]PECIFIED PHYSICIANS LA I498 OTHER 02-22-2017 [facility] SPECIFIED AMBULANCE CARDIAC SERVICE ARRHYTHMIAS J9811 ATELECTASIS 02-22-2017 [facility] I208 OTHER FORMS 01-21-2017 [facility] OF ANGINA PHYSICIANS PECTORIS GROUP R0602 SHORTNESS 01-21-2017 [facility] OF BREATH PHYSICIANS GROUP R069 UNSPECIFIED 01-21-2017 [facility] PHYSICIANS ABNORMALITI GROUP ES OF BREATHING R251 TREMOR 01-17-2017 [facility] UNSPECIFIED [facility]IANS, [facility] R4182 ALTERED 01-17-2017 [facility] AMBULANCE STATUS SERVICE UNSPECIFIED I209 ANGINA 01-13-2017 [facility] PECTORIS [facility] UNSPECIFIED INC R0600 DYSPNEA 01-13-2017 [facility] UNSPECIFIED [facility] INC T34006 PAIN IN 07-23-2016 [facility] RIGHT FOOT MOBILE DIAGNOSTIC SE E876 HYPOKALEMIA 07-05-2016 [facility] K209 ESOPHAGITIS 07-05-2016 [facility] UNSPECIFIED INC K5900 CONSTIPATIO 07-05-2016 [facility] N [facility], UNSPECIFIED PLL N200 CALCULUS OF 07-05-2016 [place] [facility] R1084 GENERALIZED 07-05-2016 [place] ABDOMINAL [facility] PAIN IMAGING ASS R1110 VOMITING 07-05-2016 [place] [facility]PEC[facility] ASS R112 NAUSEA WITH 07-05-2016 [facility], UNSPECIFIED [facility] B351 TINEA 05-28-2016 BRAUDIS JAM UNGUIUM I43789 UNS 05-28-2016 BRAUDIS JAM ATHEROSCLER T[place]-BILOXI ART EXTREM BILATERAL LEGS W87763 PAIN IN 05-28-2016 BRAUDIS JAM RIGHT TOES N80905 PAIN IN 05-28-2016 BRAUDIS JAM LEFT TOES J189 PNEUMONIA 05-01-2016 [place] UNSPECIFIED [facility]ICAL ORGANISM IMAGING ASS J984 OTHER 05-01-2016 [place] DISORDERS MEDICAL OF LUNG IMAGING ASS K210 GASTRO-ESOP 05-01-2016 [facility] P DISEASE W/ ESOPHAGITIS R05 COUGH 05-01-2016 [facility] R1010 UPPER 05-01-2016 [facility] PAIN SERVICE UNSPECIFIED R109 UNSPECIFIED 10-24-2015 [facility] ABDOMINAL PHYSICIANS PAIN ASSIST R69 ILLNESS 10-24-2015 [facility] UNSPECIFIED TRANSPORTAT ION SER 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 NON-STEROID ASSIST AL&ANTI-INF LAMMATORIES J219 ACUTE 10-09-2015 [facility] BRONCHIOLIT [facility] IS INC UNSPECIFIED J441 CHRONIC 10-09-2015 [facility] PULMONARY INC DZ W/EXACERBAT ION E119 TYPE 2 08-22-2015 [facility] DIABETES MOBILE MELLITUS DIAGNOSTIC WITHOUT SE COMPLICATIO NS F28766 PAIN IN 08-22-2015 [place] LEFT HIP [facility]ICAL IM[facility] ASS V73714 PAIN IN 08-22-2015 [place] LEFT KNEE [facility]ICAL IMAGING ASS T52658 PAIN IN 08-22-2015 [place] LEFT THIGH MEDICAL IMAGING ASS R14183B UNSPECIFIED 08-22-2015 [facility] INJURY MOBILE LEFT HIP DIAGNOSTIC INITIAL SE ENCOUNTER L851 ACQ 08-21-2015 [facility] MORENO KERATOSIS KERATODERMA PALMARIS ET PLANTARIS 97892 ABDOMINAL 05-30-2015 [place] PAIN, MEDICAL EPIGASTRIC IMAGING ASS 31696 OTHER 05-21-2015 [place] DYSPNEA AND MEDICAL [place] [address] CHEST PAIN 05-21-2015 [place] UNSPEC[facility]IED [facility]ICAL IMAGING ASS 66551 05-21-2015 [facility] TRANSPORTAT ION SER 5180 PULMONARY 05-07-2015 [place] COLLAPSE [facility] ASS 4019 UNSPECIFIED 04-06-2015 [facility] P N 41663 DIVERTICULO 03-25-2015 [place] SIS OF MEDICAL COLON IMAGING ASS 1101 DERMATOPHYT 11-27-2014 NOEMI MORENO OSIS OF NAIL 18399 ATHEROSCLER 11-27-2014 NOEMI MORENO OSIS TUNICA-BILOXI ART EXTREMITIES UNSPEC 7011 ACQUIRED 11-27-2014 NOEMI MORENO KERATODERMA 7295 PAIN IN 11-27-2014 NOEM[facility] MORENO SOFT TISSUES OF LIMB 7862 COUGH 08-16-2014 [facility] 59304 NONSPEC 08-09-2014 [facility] REACT MOBILE TUBERCULIN DIAGNOSTIC SKIN TEST SE W/O ACTIVE TB 515 POSTINFLAMM 06-05-2014 [place] ATORY [facility]ICAL PULMONARY IMAGING ASS FIBROSIS 7851 PALPITATION 06-05-2014 [place] S [facility] ASS 496 CHRONIC 05-27-2014 [place] AIRWAY MEDICAL OBSTRUCTION IMAGING ASS NEC 6101 DIFFUSE 05-03-2014 [facility]Y MASTOPATHY PHYS 28228 MASTODYNIA 05-03-2014 JR JR DWI 4928 OTHER 04-25-2014 [place] EMPHYSEMA [facility]ICAL IM[facility]ING ASS 7866 SWELLING, 04-25-2014 [facility] [place] [facility] LUMP IN INC CHEST 07558 OTHER 04-25-2014 [place] NONSPECIFIC MEDICAL ABNORMAL IMAGING ASS FINDING OF LUNG FIELD 2768 HYPOPOTASSE 04-05-2014 WEHRMAN III PEG MAXIM 66567 TRANSIENT 02-17-2014 [facility] FLA VISUAL LOSS 41874 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 48037 PSYCHOPHYSI 02-16-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 LYDIA MANSI VISUAL DISTURBANCE S 07290 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-16-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 LYDIA CEREBRAL ARTERY OCCLUSION W/INFARCT 12038 OSTEOARTHRO 09-02-2013 PETTEY JAM SIS UNSPEC WHETHER GEN/LOC LOWER LEG 19528 PAIN IN 09-02-2013 [facility] JOINT, [facility] LOWER LEG INC 4660 ACUTE 10-22-2012 JR JR BRONCHITIS DWI 490 BRONCHITIS 10-22-2012 LISETTE MAXIM NOT SPECIFIED ACUTE OR CHRONIC 7802 SYNCOPE AND 08-04-2012 [place] CO[facility] 55625 OTHER CHEST 08-03-2012 BESSON LYDIA PAIN 2749 GOUT, 06-25-2012 [facility] LYDIA UNSPECIFIED 67882 SHORTNESS 06-25-2012 [facility] LYDIA OF BREATH 4111 INTERMEDIAT 05-28-2012 LISETTE MAXIM E CORONARY SYNDROME 4139 OTHER AND 05-28-2012 [facility] DANIEL UNSPECIFIED MAXIM ANGINA PECTORIS 44970 OTHER 05-28-2012 [place] DISEASES OF MEDICAL LUNG NOT IMAGING ASS ELSEWHERE CLASSIFIED 5990 URINARY 03-12-2011 [facility] TRACT [facility] INFECTION LA SITE NOT SPECIFIED 41141 OTHER 03-12-2011 [facility] ABNORMAL PHYSICIANS GLUCOSE LA 9597 INJURY 03-12-2011 [facility] OTHER&UNSPE PHYSICIANS CIFIED KNEE LA LEG ANKLE&FOOT 5589 OTH&UNSPEC 02-05-2011 [facility] NONINFECTIO [facility] US INC GASTROENTER ITIS&COLITI S 55403 OTHER 02-05-2011 [facility] MALAISE AND AMBULANCE FATIGUE SERVICE 35403 NAUSEA WITH 02-05-2011 [facility] 36925 DIARRHEA 02-05-2011 [facility] V5869 LONG-TERM 02-05-2011 [facility] (CURRENT) [facility] USE OF INC OTHER MEDICATIONS 700 CORNS AND 01-27-2011 [facility] 8930 OPEN WOUND 01-06-2011 [facility] WITHOUT HOSPITAL MENTION COMPLICATIO N 7350 HALLUX 12-16-2010 [facility] VALGUS SERV FOUNDATIO 7354 OTHER 12-16-2010 [facility] HAMMER TOE FOOT PROFESSIONA LS 8931 OPEN WOUND 12-16-2010 [facility] [address] HEAD 04-03-2010 [facility] INJURY, AMBULANCE UNSPECIFIED SERVICE 920 CONTUSION 04-02-2010 [facility] OF FACE EMERGENCY SCALP AND SERVICES NECK EXCEPT ASSOC[facility]ATES EYE E8889 UNSPECIFIED 04-02-2010 [facility] 5210 DENTAL 03-04-2010 [facility] 7245 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-15-2010 [facility] BACKACHE AMBULANCE SERVICE 86531 ABDOMINAL 01-31-2010 [place] PAIN, MEDICAL UNSPECIFIED IMAGING SITE ASSOCIATES 35561 ABDOMINAL 01-31-2010 [facility] PAIN, AMBULANCE GENERALIZED SERVICE 07238 ULCER OF 01-30-2010 FOLLMER ANGY OTHER PART OF FOOT 69418 UNSPECIFIED 01-26-2010 [facility] PERIPHERAL [facility]Y VERTIGO SERVICES [facility] 7804 DIZZINESS 01-26-2010 [place] AND MEDICAL GIDDINESS IMAGING ASSOCIATES 7840 HEADACHE 01-26-2010 [facility] AMBULANCE SERVICE 4619 ACUTE 12-02-2009 [facility] SINUSITIS, [facility] PROF SERV 58540 POISONING 09-21-2009 [facility] N EMERGENCY AND RELATED PHYS INC NARCOTICS OTHER V0481 NEED 09-17-2009 BRENDAN LYNCH VACCINATION &INOCULATIO N FLU 12977 HEMATURIA 07-27-2009 [facility] UNSPECIFIED AMBULANCE SERVICE 57579 ABDOMINAL 07-27-2009 [facility] PAIN OTHER EMERGENCY SPECIFIED SERVICES SITE ASSOCIATES 12799 PAIN IN 04-19-2009 BRITTNEY, JOINT, [facility] ANKLE AND FOOT 6829 CELLULITIS 02-23-2009 CRIS, AND ABSCESS GABI Boateng OF UNSPECIFIED SITE 5253 RETAINED 10-18-2008 [facility] DENTAL [facility]MAXILL OFACIAL SURGERY 27548 PAIN IN 07-15-2008 [facility] JOINT, AMBULANCE FOREARM SERVICE 30524 SPRAIN AND 07-15-2008 [place] STRAIN OF MEDICAL UNSPECIFIED IMAGING SITE OF ASSOCIATES WRIST E8497 PLACE OF 07-15-2008 [place] OCCURRENCE MEDICAL RESIDENTIAL IMAGING ASSOCIATES INSTITUTION E927 OVEREXERTIO 07-15-2008 [place] N&STRENUOUS MEDICAL &REPETITIVE IMAGING ASSOCIATES MVMNTS/LOAD S 45091 OSTEOARTHRO 06-23-2008 Agusto LYNCH INVLV MX GABI [...] MG AR MA TA CY BL ET AM 65 08 09 3. 1 00 ME Ac OX 86 -3 -2 00 00 D ti IC 20 0- 2- 0 14 CA ve IL 01 20 20 86 RE LI 70 17 17 18 N 5 75 PH 50 AR 0 MA MG CY CA PS UL E TR 00 09 09 30 30 00 ME Ac IA 78 -0 -2 .0 00 D ti MT 15 1- 2- 00 14 CA ve ER 06 20 20 86 RE EN 70 17 17 69 E- 5 03 PH HC AR TZ MA CY 75 -5 0 MG TA B LO 00 09 09 30 30 00 ME Ac RA 78 -0 -2 .0 00 D ti TA 15 2- 2- 00 14 CA ve DI 07 20 20 87 RE NE 70 17 17 17 1 04 PH 10 AR MA MG CY TA BL ET 00 08 09 30 30 00 ME [...] MA MG CY CA PS UL E GA 65 08 09 42 14 00 [...] CY 20 ME Q TA BL ET LO 69 08 09 42 14 00 ME Ac RA 31 -1 -0 .0 00 D ti ZE 50 4- 8- 00 14 CA ve PA 90 20 20 76 RE M 50 17 17 09 1 5 34 PH MG AR MA TA CY BL ET BU 00 08 09 60 [...] AR MG MA CY TA BL ET CI 13 08 09 30 30 00 ME Ac TA 66 -0 -0 .0 00 D ti LO 80 7- 1- 00 14 CA ve NJ 01 20 20 72 RE AM 00 17 17 69 5 20 PH HB AR R MA 20 CY MG TA BL ET GA 65 08 09 42 14 00 ME Ac BA 86 -1 -0 .0 00 D ti PE 20 0- 1- 00 14 CA ve NT 19 20 20 74 RE IN 80 17 17 57 1 63 PH 10 AR 0 MA MG CY CA PS UL E LO 69 07 08 42 14 00 ME Ac RA 31 -3 -2 .0 00 D ti ZE 50 1- 5- 00 14 CA ve PA 90 20 20 68 RE M 50 17 17 07 1 5 30 PH MG AR MA TA CY BL ET BE 00 08 08 60 [...] MG CY TA BL ET OL 60 08 08 30 [...] .0 00 D ti PE 20 8- 8 14 CA ve NT 19 20 20 66 RE IN 80 17 17 71 1 47 PH 10 AR 0 MA MG CY CA PS UL E LO 00 07 08 42 14 00 ME Ac RA 60 -1 -1 .0 00 D ti ZE 34 7- 8- 00 14 CA ve PA 24 20 20 59 RE M 73 17 17 99 1 2 41 PH MG AR MA TA CY BL ET BU 00 07 08 60 [...] AR MG MA CY TA BL ET 00 07 08 30 30 00 ME Ac PI 60 -2 -1 .0 00 D ti RI 30 6- 8- 00 14 CA ve N 02 20 20 65 RE EC 63 17 17 22 2 62 PH 81 AR MA MG CY TA BL ET AT 60 07 08 30 30 00 ME Ac OR 50 -2 -1 .0 00 D ti VA 52 7- 8- [address] 57 20 20 66 RE AT 80 17 17 04 IN 9 89 PH AR 10 MA CY MG TA BL ET NJ 59 07 08 28 7 00 ME [...] 30 2- 4- 00 14 CA ve TX 31 20 20 58 RE DE 10 [...] 80 7- 8- 00 14 CA ve NJ 01 20 20 53 RE AM 00 [...] AR MA MG CY TA BL ET NJ 59 06 07 28 7 00 ME [...] 80 8- 7- 00 14 CA ve NJ 01 20 20 35 RE AM 00 [...] 20 2- 2- 00 14 CA ve NJ 00 20 20 18 RE AM 60 [...] .0 00 D ti OF 24 7- 9 00 14 CA ve EN 09 20 [...] 6- 5- 00 14 CA ve ON 20 20 00 RE E 40 17 [...] 20 4- 5- 00 14 CA ve NJ 00 20 20 04 RE AM 60 [...] 20 7- 7- 00 13 CA ve NJ 00 20 20 90 RE AM 60 [...] 00 D ti MT 11 4 7- 13 CA ve ER 00 20 20 [...] 7- 0- 00 13 CA ve ON 03 28 20 70 RE E 40 17 17 [...] 20 7- 0- 00 13 CA ve NJ 00 20 20 76 RE AM 60 [...] 80 0- 7- 00 13 CA ve NJ 01 20 20 62 RE AM 00 [...] C MG TA B BE 00 01 60 30 00 ME Ac NZ [...] 80 1- 3- 00 13 CA ve NJ 01 20 20 47 RE AM 00 16 17 56 5 86 PH HB AR R MA 20 CY MG LL C TA BL ET 00 12 01 30 30 00 ME Ac PI 53 [...] -0 .0 00 D ti MT 11 00 13 CA ve ER 00 20 [...] D CY W C TH 00 03 05 3 30 30 ME 43 AR Ac ER 90 -0 -0 .0 D 52 NO ti A 40 9- 8- 00 CA 67 LD ve TA 53 20 20 RE 6 BL 96 10 10 RI ET 1 PH CH AR AR MA D CY W C 00 02 04 3 20 3 ME 42 AR Ac 18 -0 -1 .0 D 71 NO ti 28 1- 9- 00 CA 82 LD ve 44 20 20 RE 3 78 10 10 RI 9 PH CH AR AR MA D CY W C 00 02 04 3 30 30 ME 43 AR Ac 06 -2 -1 .0 D 05 NO ti 76 0- 4- 00 CA 72 LD ve 07 20 20 RE 0 03 10 10 RI 0 PH CH AR AR MA D CY W C TH 00 03 04 3 30 30 ME 43 AR Ac ER 90 -0 -0 .0 D 52 NO ti A 40 9- 8- 00 CA 67 LD ve TA 53 20 20 RE 6 BL 96 10 10 RI ET 1 PH CH AR AR MA D CY W C 00 02 03 3 20 3 ME 42 AR Ac 18 -0 -3 .0 D 71 NO ti 28 1- 0- 00 CA 82 LD ve 44 20 20 RE 3 78 10 10 RI 9 PH CH AR AR MA D CY W C 00 02 03 3 30 30 [...] MA D CY W C TH 00 11 02 03 30 [...] 00 1. 1 ME 36 AR Ac NJ 78 -1 -0 00 D 71 NO [...] PLLC D/T ACTIVE DX HYPERTENS ION ECG 48826 [facility] STEPHENSON ROUTINE 7 PHYSICIAN U ECG S, PLLC W/LEAST 12 LDS I&R ONLY ECG 17657 [facility] PEDROZA ROUTINE 7 [facility] ECG INC INC W/LEAST 12 LDS TRCG ONLY W/O I&R ECG 45153 KENA JAMES ROUTINE 7 PHYSICIAN ECG S, PLLC W/LEAST 12 LDS I&R ONLY RADIOLOGI 18246 [facility] PEDROZA C 7 [facility] EXAMINATI INC INC ON CHEST SINGLE VIEW FRONTAL PATIENT G9744 KENA JAMES NOT 7 PHYSICIAN ELIGIBLE S, PLLC D/[place] [address] [facility] PEDROZA TROPONIN 7 [facility] QUANTITAT INC INC SALONI COLLECTIO 96269 [facility] PEDROZA N VENOUS 7 [facility] BLOOD INC INC VENIPUNCT URE COMPREHEN 65764 [facility] PEDROZA SIVE 7 [facility] H[facility] METABOLIC INC INC PANEL BLOOD 23541 [facility] PEDROZA COUNT 7 [facility] COMPLETE INC INC AUTO&AUTO DIFRNTL WBC COMPREHEN 07263 [facility] PEDROZA SIVE 7 MEM HOS[facility]OS[facility] METABOLIC INC INC PANEL BLOOD 31750 [facility] PEDROZA COUNT 7 [facility] COMPLETE INC INC AUTO&[place] [address] [facility] PEDROZA TROPONIN 7 MEM HOS[facility] QUANTITAT INC INC SALONI CREATINE 50506 [facility] PEDROZA KINASE MB 7 MEM HOSP [facility]OS[facility] FRACTION INC INC ONLY GROUND A0425 [facility] MILEAGE 7 AMBULANCE AMBULANCE PER SERVICE SERVICE STATUTE MILE CREATINE 13742 [facility] PEDROZA KINASE 7 MEM HOS[facility]OS[facility] TOTAL INC INC AMB A0427 [facility] SERVICE 7 AMBULANCE AMBULANCE ALS SERVICE SERVICE EMERGENCY TRANSPORT LEVEL 1 ECG 31370 [facility] PEDROZA ROUTINE 7 [facility] ECG INC INC W/LEAST 12 LDS TRCG ONLY W/O I&R RADIOLOGI 02358 DOYLE Guzmán 7 MEDICAL EXAMINATI IMAGING ON CHEST ASS SINGLE VIEW FRONTAL ECG 93125 KENA HECTOR ROUTINE 7 PHYSICIAN ECG S, PLLC W/LEAST 12 LDS I&R ONLY BASIC 16104 COMBINED COMBINED METABOLIC 7 PHYSICIAN PHYSICIAN PANEL S LA S LA CALCIUM TOTAL COLLECTIO 07947 COMBINED COMBINED N VENOUS 7 PHYSICIAN PHYSICIAN BLOOD S LA S LA VENIPUNCT URE TRAVEL [address] MED 7 PHYSICIAN PHYSICIAN NEC LAB S LA S LA SPEC; [place] [address] [facility] PEDROZA TROPONIN 7 MEM [facility] [address] Y[facility] PEDROZA TROPONIN 7 [facility] QUANTITAT INC INC SALONI CREATINE 71453 YOVANY PEEK KINASE MB 7 [place] [address] [facility] PEDROZA AMYLASE 7 MEM HOSP [facility] HOS[facility] INC INC BLOOD 16247 [facility] PEDROZA COUNT 7 [facility] COMPLETE INC INC AUTO&AUTO DIFRNTL WBC COMPREHEN 89593 [facility] LAST SIVE 7 [facility] METABOLIC INC PANEL GROUND A0425 [facility] 7 AMBULANCE AMBULANCE PER SERVICE SERVICE STATUTE MILE ECG 14135 YOVAYN ECHEVARRIA ROUTINE 7 [facility] W/LEAST P 12 LDS I&R ONLY RADIOLOGI 43727 KENAChey RUSSO C 7 PHYSICIAN EXAMINADAILY S, PLLC ON CHEST SINGLE VIEW FRONTAL ECG 20892 [facility] PEDROZA ROUTINE 7 [facility] ECG INC INC W/LEAST 12 LDS TRCG ONLY W/O I&R AMB A0427 [facility] SERVICE 7 AMBULANCE AMBULANCE ALS SERVICE SERVICE EMERGENCY TRANSPORT LEVEL 1 CREATINE 12331 Y[facility] RODDY KINASE [place] [address] Y[facility] PEDROZA LIPASE 7 [facility] INC INC RADIOLOGI 19268 [facility] C EXAM 7 MEDICAL MEDICAL CHEST 2 IMAGING IMAGING VIEWS ASS ASS FRONTAL&L ATERAL MYOCARDIA 19597 [facility] SRIVASTAV L SPECT 7 PHYSICIAN A MULTIPLE S GROUP STUDIES CV STRS 05011 [facility] COOK TST 7 PHYSICIAN XERS&/OR S GROUP RX CONT ECG W/O I&R GROUND A0425 [facility] PER SERVICE SERVICE STATUTE MILE AMB A0427 [facility] SERVICE 7 AMBULANCE AMBULANCE ALS SERVICE SERVICE EMERGENCY TRANSPORT LEVEL 1 ECG 91724 [facility] 7 PHYSICIAN ECG S, PLLC W/LEAST 12 LDS I&R ONLY ECG 18324 [facility] PEDROZA ROUTINE 7 [facility] ECG INC INC W/LEAST 12 LDS TRCG ONLY W/O I&R ECG 09617 [facility] ECHEVARRIA ROUTINE 7 [facility] W/LEAST P 12 LDS I&R ONLY CT THORAX 14972 [facility] [place] 7 MEDICAL W/CONTRAS IMAGING T ASS MATERIAL AMB A0427 [facility] SERVICE 7 AMBULANCE AMBULANCE ALS SERVICE SERVICE EMERGENCY TRANSPORT LEVEL 1 RADIOLOGI 01856 PSYCHIATRIC 7 MEDICAL EXAMINATI IMAGING ON CHEST ASS SINGLE VIEW FRONTAL GROUND A0425 [facility] MILEAGE 7 AMBULANCE AMBULANCE PER SERVICE SERVICE STATUTE MILE BASIC 68471 COMBINED COMBINED METABOLIC 7 PHYSICIAN PHYSICIAN PANEL S LA S LA CALCIUM TOTAL COLLECTIO 86184 COMBINED COMBINED N VENOUS 7 PHYSICIAN PHYSICIAN BLOOD S LA S LA VENIPUNCT URE TRAVEL [address] MED 7 PHYSICIAN PHYSICIAN NEC LAB S LA S LA SPEC; PRORATD TRIP CHRG TRAVEL [address] MED 6 PHYSICIAN PHYSICIAN NEC LAB S LA S LA SPEC; PRORATD TRIP CHRG COLLECTIO 79865 COMBINED COMBINED N VENOUS 6 PHYSICIAN PHYSICIAN BLOOD S LA S LA VENIPUNCT URE BLOOD 97463 COMBINED COMBINED COUNT 6 PHYSICIAN PHYSICIAN COMPLETE S LA S LA AUTO&AUTO DIFRNTL WBC COMPREHEN 58811 COMBINED COMBINED SIVE 6 PHYSICIAN PHYSICIAN METABOLIC S LA S LA PANEL COMPREHEN 41590 COMBINED COMBINED SIVE 6 PHYSICIAN PHYSICIAN METABOLIC S LA S LA PANEL COLLECTIO 06942 COMBINED COMBINED N VENOUS 6 PHYSICIAN PHYSICIAN BLOOD S LA S LA VENIPUNCT URE BLOOD 67476 COMBINED COMBINED COUNT 6 PHYSICIAN PHYSICIAN COMPLETE S LA S LA AUTO&AUTO DIFRNTL WBC TRAVEL [address] MED 6 PHYSICIAN PHYSICIAN NEC LAB S LA S LA SPEC; PRORATD TRIP CHRG ECG 78825 YOVANY NORRIS JR ROUTINE 6 [facility] W/LEAST P 12 LDS I&R ONLY CT THORAX 83111 [place] ALL 6 MEDICAL W/CONTRAS IMAGING T ASS MATERIAL RADIOLOGI 78353 [facility] C 6 MEDICAL MEDICAL EXAMINATI IMAGING IMAGING ON CHEST ASS ASS [place] FRONTAL AMB [id number] [facility] SERVICE 6 AMBULANCE AMBULANCE ALS SERVICE SERVICE EMERGENCY TRANSPORT LEVEL 1 [facility]0425 [facility] PER SERVICE SERVICE STATUTE MILE SET-UP Q0092 [facility] PORTABLE 6 MOBILE MOBILE X-RAY DIAGNOSTI DIAGNOSTI EQUIPMENT C SE C SE RADEX 18805 [facility] FOOT 6 MOBILE MOBILE COMPLETE DIAGNOSTI DIAGNOSTI MINIMUM 3 C SE C SE VIEWS TRANS R0070 [facility] PRTBL 6 MOBILE MOBILE X-RAY DIAGNOSTI DIAGNOSTI EQP&PERS C SE C SE GINETTE/NRS GINETTE-TR[place] 1 [place] [address] YOVANY PEDROZA INFUSION 6 [facility] THERAPY/P INC INC ROPHYLAXI S /DX 1ST TO 1 HR THERAPEUT 66049 [facility] IC 6 [facility] INJECTION [place] [address] Y[facility] PEDRO[facility] INFUSION 6 [facility] THER INC INC PROPH ADDL SEQUENTIA L TO 1 HR URNLS DIP 23501 [facility] 6 [facility] STICK/TAB INC INC LET REAGENT AUTO MICROSCOP Y CULTURE 69084 Y[facility]ANY P[facility]RO[facility] BACTERIAL 6 [facility] INC INC QUANTTATI VE COLONY COUNT URINE CULTURE 54820 [facility] BCT 6 [facility] ISOL&PRSM INC INC PTV ID ISOLATE EA URINE SUSCEPTIB 74105 YOVANY PEDROZA LTY STDY 6 [facility] ANTIMICRB INC INC IAL MICRO/AGA R DILUTJ BLOOD 61570 YOVANY PEDROZA COUNT 6 [facility] COMPLETE INC INC AUTO&AUTO DIFRNTL WBC COMPREHEN 86903 YOVANY PEDROZA SIVE 6 [facility] [address] YOVANY PEDROZA TROPONIN 6 [facility] QUANTITAT INC INC SALONI PATIENT G8784 KENA RENUSC NOT 6 PHYSICIAN BRITTANEY IZAGUIRRE S, [facility] E.G. PT REFUSES URGENT/EM SIT GROUND A0425 [facility] MILEAGE 6 AMBULANCE AMBULANCE PER SERVICE SERVICE STATUTE MILE AMBULANCE A0429 [facility] SERVICE 6 AMBULANCE AMBULANCE BLS SERVICE SERVICE EMERGENCY TRANSPORT ECG 34680 YOVANY NORRIS JR ROUTINE 6 [facility] W/LEAST P 12 LDS I&[place] [address] [facility] ALL ABDOMEN & 6 MEDICAL PELVIS IMAGING W/O ASS CONTRAST MATERIAL 12-LEAD 3120F [facility] ECG 6 PHYSICIAN BRITTANEY PERFORMED S, [facility] RADIOLOGI 01607 YOVANY PEDROZA C 6 [facility] EXAMINATI INC INC [place] [address] YOVANY PEDROZA LIPASE 6 [facility] INC INC ECG 37856 YOVANY PEDROZA ROUTINE 6 [facility] ECG INC INC W/LEAST 12 LDS TRCG ONLY W/O I&R TRAVEL [address] MED 6 PHYSICIAN PHYSICIAN NEC LAB S LA S LA SPEC; PRORATD TRIP CHRG BASIC 30807 COMBINED COMBINED METABOLIC 6 PHYSICIAN PHYSICIAN PANEL S LA S LA CALCIUM TOTAL COLLECTIO 54327 COMBINED COMBINED N VENOUS 6 PHYSICIAN PHYSICIAN BLOOD S LA S LA VENIPUNCT URE DEBRIDEME 35118 NOEMI FRANKLIN NT NAIL 6 JAM JAM ANY METHOD 6/> PARING/CU 42326 NOEMI FRANKLIN TTING 6 JAM JAM BENIGN HYPERKERA TOTIC LESION 2-4 BLOOD 55860 YOVANY PEDROZA OCCULT 6 [facility] PEROXIDAS INC INC E ACTV QUAL FECES 1-3 [place] [address] YOVANY PEDROZA TROPONIN 6 [facility] [place] [address] YOVANY PEDROZA AMYLASE 6 [facility] INC INC CREATINE 54661 YOVANY PEDROZA KINASE MB 6 [facility] FRACTION INC INC ONLY COMPREHEN 22425 YOVANY PEDROZA SIVE 6 [facility] METABOLIC INC INC PANEL BLOOD 51311 YOVANY PEDROZA COUNT 6 [facility] COMPLETE INC INC AUTO&AUTO DIFRNTL WBC GROUND A0425 [facility] PER SERVICE SERVICE STATUTE MILE CREATINE 51596 YOVANY PEDROZA KINASE 6 [facility] TOTAL INC INC AMB A0427 [facility] SERVICE 6 AMBULANCE AMBULANCE ALS SERVICE SERVICE EMERGENCY TRANSPORT LEVEL 1 RADIOLOGI 92257 DOYLE LUGO C EXAM 6 MEDICAL ABDIRAHMAN CHEST 2 IMAGING VIEWS ASS FRONTAL&[place] [address] YOVANY PEDROZA LIPASE 6 [facility] INC INC ECG 47664 YOVANY PEDROZA ROUTINE 6 [facility] ECG INC INC W/LEAST 12 LDS TRCG ONLY W/O I&R ECG 23198 YOVANY ECHEVARRIA ROUTINE [address] [facility] W/LEAST P 12 LDS I&R ONLY BASIC 13883 COMBINED COMBINED METABOLIC 6 PHYSICIAN PHYSICIAN PANEL S LA S LA CALCIUM TOTAL BLOOD 03355 COMBINED COMBINED COUNT 6 PHYSICIAN PHYSICIAN COMPLETE S LA S LA AUTO&AUTO DIFRNTL WBC COLLECTIO 14726 COMBINED COMBINED N VENOUS 6 PHYSICIAN PHYSICIAN BLOOD S LA S LA VENIPUNCT URE TRAVEL [address] MED 6 PHYSICIAN PHYSICIAN NEC LAB S LA S LA SPEC; PRORATD TRIP CHRG DEBRIDEME 70801 SERGS BRAUDIS NT NAIL 6 JAM JAM ANY METHOD 1-5 PARING/CU 78146 BRAUDIS BRAUDIS TTING 6 JAM JAM BENIGN HYPERKERA TOTIC LESION 2-4 TRIMMING 62659 BRAUDIS BRAUDIS NONDYSTRO 6 JAM JAM PHIC NAILS ANY NUMBER PARING/CU 31673 BRAUDIS BRAUDIS TTING 5 JAM JAM BENIGN HYPERKERA TOTIC LESION 2-4 DEBRIDEME 10518 NOEMI PANDEYUDIS NT NAIL 5 JAM JAM ANY METHOD 6/> NONEMERG A0120 FEDERATED FEDERATED TRNSPRT: 5 MINI-[facility] TRANSPORT TRANSPORT MTN ATION SER ATION SER AREA/OT SYS RADIOLOGI 25123 YOVANY Guzmán EXAM 5 [facility] CHEST 2 INC INC VIEWS FRONTAL&L ATERAL RADEX HIP 52261 [place] BRITTNEY 5 MEDICAL ABDIRAHMAN UNILATERA IMAGING L ASS COMPLETE MINIMUM 2 VIEWS RADIOLOGI 54227 EXPRESS EXPRESS C 5 MOBILE MOBILE EXAMINATI DIAGNOSTI DIAGNOSTI ON FEMUR C SE C SE [address] PELVIS 44269 [place] MURILLO ALL W/O 5 MEDICAL CONTRAST IMAGING MATERIAL ASS RADIOLOGI 46975 [place] BRITTNEY C 5 MEDICAL ABDIRAHMAN EXAMINATI IMAGING ON KNEE ASS 1/2 VIEWS DEBRIDEME 74256 NOEMI BRAUDIS NT NAIL 5 JAM JAM ANY METHOD 1-5 PARING/CU 99764 BRAUDIS BRAUDIS TTING 5 JAM JAM BENIGN HYPERKER[place] LESION 2-[place] [address] [place] MURILLO ALL ABDOMEN & 5 MEDICAL PELVIS IMAGING W/O ASS CONTRAST MATERIAL CV STRS 77964 YOVANY NORRIS JR TST 5 [facility] RX CONT P ECG I&R ONLY MYOCARDIA 33279 [place] BRITTNEY L SPECT 5 MEDICAL ABDIRAHMAN MULTIPLE IMAGING STUDIES ASS NONEMERG A0120 FEDERATED FEDERATED TRNSPRT: 5 MINI-BUS TRANSPORT TRANSPORT MTN ATION SER ATION [facility] AREA/OT SYS CV STRS 19101 [facility] TST 5 PHYSICIAN XERS&/OR S GROUP RX CONT ECG W/O I&R NONEMERG A0120 FEDERATED FEDERATED TRNSPRT: 5 [facility]I-BUS TRANSPORT TRANSPORT MTN ATION SER ATION SER AREA/OT SYS RADIOLOGI 66272 [place] SETHFORMERLY [facility] 5 MEDICAL ERUM EXAMINATI IMAGING ON CHEST ASS SINGLE VIEW FRONTAL ECG 49279 YOVANY ECHEVARRIA ROUTINE [address] [facility] W/LEAST P 12 LDS I&R ONLY RADIOLOGI 52202 YOVANY PEDROZA C 5 [facility] EXAMINATI INC INC ON CHEST SINGLE VIEW FRONTAL RADIOLOGI 24568 DOYLE YUNG C 5 MEDICAL ERUM EXAMINATI IMAGING [place] [address] DOYLE YUNG ABDOMEN & 5 MEDICAL ERUM PELVIS IMAGING W/O ASS CONTRAST MATERIAL PARING/CU 83382 NOEMI FRANKLIN TTING 5 JAM JAM BENIGN HYPERKERA TOTIC LESION 2-4 RADIOLOGI 20987 DOYLE YUNG C EXAM 4 MEDICAL ERUM CHEST 2 IMAGING VIEWS ASS FRONTAL&L ATERAL RADIOLOGI 76444 EXPRESS EXPRESS C EXAM 4 MOBILE MOBILE CHEST 2 DIAGNOSTI DIAGNOSTI VIEWS C SE C SE FRONTAL&L ATERAL NONEMERG A0120 FEDERATED FEDERATED TRNSPRT: 4 TRANS [facility] AREA/OTH SYS ECG 95282 ALFARIS ALFARIS ROUTINE 4 MOH MOH ECG W/LEAST 12 LDS I&R ONLY RADIOLOGI 88558 DOYLE YUNG C 4 MEDICAL ERUM EXAMINATI IMAGING ON CHEST ASS SINGLE VIEW FRONTAL RADIOLOGI 40999 DOYLE LUGO C 4 MEDICAL ABDIRAHMAN EXAMINATI IMAGING ON CHEST ASS SINGLE VIEW FRONTAL NONEMERG A0120 FEDERATED FEDERATED TRNSPRT: 4 TRANS [facility] TRANSPORT [facility] SER ROEL AREA/OTH SYS ECG 38602 JR NORRIS JR ROUTINE 4 DWI DWI ECG W/LEAST 12 LDS I&R ONLY RADIOLOGI 79677 DOYLE CORTEZUTCHER C 4 MEDICAL ABDIRAHMAN EXAMINATI IMAGING ON CHEST ASS SINGLE VIEW FRONTAL CT THORAX 42724 DOYLE GARCIACHER W/O 4 MEDICAL ABDIRAHMAN CONTRAST IMAGING MATERIAL ASS NONEMERG A0120 FEDERATED FEDERATED TRNSPRT: 4 TRANS [facility] TRANSPORT [facility] SER ROEL AREA/OTH SYS RADIOLOGI 54474 DOYLE LUGO C 4 MEDICAL ABDIRAHMAN EXAMINATI IMAGING ON CHEST ASS SINGLE VIEW FRONTAL ECG 15067 ASHWIN CHRISTOPHER ROUTINE 4 III MAXIM III MAXIM ECG W/LEAST 12 LDS I&R ONLY NONEMERG A0120 FEDERATED FEDERATED TRNSPRT: 4 [facility]I-BUS TRANSPORT TRANSPORT MTN ATION SER ATION SER AREA/OTH SYS NONEMERG A0120 FEDERATED FEDERATED TRNSPRT: 4 [facility] TRANSPORT TRANSPORT MTN ATION SER ATION SER AREA/[place] [address] RASLAU RASLAU ANGIOGRAP 4 FLA FLA HY NECK W/CONTRAS T/[place] [address] RASLAU RASLAU ANGIOGRAP 4 FLA FLA HY HEAD W/CONTRAS T/NONCONT RAST CRITICAL 09215 CHIQUITA LYDIA CHIQUITA LYDIA CARE 4 ILL/INJUR ED PATIENT INIT 30-74 MIN DEBRIDEME 85097 NOEMI FRANKLIN NT NAIL 4 JAM JAM ANY METHOD 6/> PARING/CU 27222 NOEMI ULRICHS TTING 4 JAM JAM BENIGN HYPERKERA TOTIC LESION 2-4 RADIOLOGI 86074 BRITTNEY BRITTNEY C EXAM 3 ABDIRAHMAN ABDIRAHMAN KNEE COMPLETE 4/MORE VIEWS INJ J0702 PETTEY PETTEY BETAMETHA 3 JAM JAM SONE ACETATE & PHOSPHATE 3 MG ARTHROCEN 34351 PETTEY PETTEY TESIS 3 JAM JAM ASPIR&/IN J MAJOR JT/BURSA W/O US NONEMERG A0120 LKLP CAC LKLP CAC TRNSPRT: 3 INC INC MINI-BUS REGION 11 REGION 11 MTN AREA/OTH SYS NONEMERG A0120 LKLP CAC LKLP CAC TRNSPRT: 3 INC INC MINI-BUS REGION 11 REGION 11 MTN AREA/OTH SYS ECG 79642 YOVANY PEDROZA ROUTINE 2 [facility] ECG INC INC W/LEAST 12 LDS TRCG ONLY W/O I&R RADIOLOGI 58551 YOVANY PEDROZA C 2 [facility] EXAMINATI INC INC ON CHEST SINGLE VIEW FRONTAL ECG 33109 LISETTE KNOX ROUTINE 2 MAXIM MAXIM ECG W/LEAST 12 LDS I&[place] [address] [facility] CORTEZBRITTNEY HEAD/BRAI 2 MEDICAL ABDIRAHMAN N W/[place] [address] [facility] CORTEZBRITTNEY MAXILLOFA 2 MEDICAL ABDIRAHMAN CIAL W/O IMAGING CONTRAST ASS MATERIAL OBSERVATI 90222 SWATHI ECHEVARRIA ON CARE 2 LYDIA LYDIA DISCHARGE MANAGEMEN T RADIOLOGI 44848 [facility] BRITTNEY C EXAM 2 MEDICAL ABDIRAHMAN CHEST 2 IMAGING VIEWS ASS FRONTAL&L ATERAL ECG 27341 LEYDI HOLLEY ROUTINE 2 EMERGENCY EMERGENCY ECG SERVICES SERVICES W/LEAST 12 LDS I&R ONLY ECG 06084 JR NORRIS JR ROUTINE 2 DWI DWI ECG W/LEAST 12 LDS I&R ONLY XTRNL ECG 01543 YOVANY PEDROZA & 48 HR 2 [facility] RECORDING INC INC EXTERNAL 26575 YOVANY PEDROZA ECG 2 [facility] SCANNING INC INC ANALYSIS REPORT XTRNL ECG 25123 ETIENNEKEMIE MCKEMIE 2 JR MAXIM JR MAXIM CONTINUOU S RHYTHM W/I&R UP TO 48 HRS RADIOLOGI 34053 YOVANY PEDROZA C 2 [facility] EXAMINATI INC INC ON CHEST SINGLE VIEW FRONTAL ECG 89737 TAWNY HECTOR ROUTINE 2 ANIRUDH ANIRUDH ECG W/LEAST 12 LDS I&R ONLY ECG 33971 YOVANY PEDROZA ROUTINE 2 [facility] ECG INC INC W/LEAST 12 LDS TRCG ONLY W/O I&R MYOCARDIA 31256 FALLUJI FALLUJI L SPECT 2 DENISE DENISE MULTIPLE STUDIES MYOCARDIA 98636 YOVANY PEDROZA L SPECT 2 [facility] MULTIPLE INC INC STUDIES NONEMERG A0120 LKLP LKLP TRNSPRT: 2 COMMUNITY COMMUNITY MINI-BUS ACTION ACTION MTN AREA/OTH SYS CV STRS 02084 JR NORRIS JR TST 2 DWI DWI XERS&/OR RX CONT ECG I&R ONLY CV STRS 17493 JEROMY RENAE TST 2 XERS&/OR RX CONT ECG W/O I&R CV STRS 34480 YOVANY PEDROZA TST 2 [facility] XERS&/OR INC INC RX CONT ECG TRCG ONLY ECG 76882 AARONSON BESSON ROUTINE 2 LYDIA LYDIA ECG W/LEAST 12 LDS I&R ONLY ECG 17566 TAWNY TAWNY ROUTINE 2 ANIRUDH ANIRUDH ECG W/LEAST 12 LDS I&R ONLY NONEMERG A0120 LKLP LKLP TRNSPRT: 2 COMMUNITY COMMUNITY MINI-BUS ACTION ACTION MTN AREA/OTH SYS RADIOLOGI 44013 [place] BRITTNEY C 2 MEDICAL ABDIRAHMAN EXAMINATI IMAGING ON CHEST ASS SINGLE VIEW FRONTAL ECG 37323 LISETTE KNOX ROUTINE 2 MAXIM MAXIM ECG W/LEAST 12 LDS I&R ONLY PARING/CU 53154 BRAUDIS BRAUDIS TTING 2 JAM JAM BENIGN HYPERKERA TOTIC LESION 2-4 TRIMMING 51698 BRAUDIS BRAUDIS NONDYSTRO 2 JAM JAM PHIC NAILS ANY NUMBER TRIMMING 63620 BRAUDIS BRAUDIS NONDYSTRO 2 JAM JAM PHIC NAILS ANY NUMBER PARING/CU 43592 BRAUDIS BRAUDIS TTING 2 JAM JAM BENIGN HYPERKERA TOTIC LESION 2-4 COMPREHEN 93465 YOVANY PEDROZA SIVE 1 [facility] METABOLIC INC INC PANEL BLOOD 60382 YOVANY PEDROZA COUNT 1 [facility] COMPLETE INC INC AUTO&AUTO DIFRNTL WBC CREATINE 35452 YOVANY PEDROZA KINASE MB 1 [facility] [place] [address] YOVANY PEDROZA TROPONIN 1 [facility] QUANTITAT INC INC SALONI CREATINE 05186 YOVANY PEDROZA KINASE 1 [facility] TOTAL INC INC RADIOLOGI 38905 [place] BRITTNEY C 1 MEDICAL ABDIRAHMAN EXAMINATI IMAGING ON CHEST ASS SINGLE VIEW FRONTAL ECG 41617 YOVANY PEDROZA ROUTINE 1 [facility] ECG INC INC W/LEAST 12 LDS TRCG ONLY W/O I&R ECG 45168 LEYDI CHRISTOPHER ROUTINE 1 EMERGENCY III MAXIM ECG SERVICES W/LEAST 12 LDS I&R ONLY URNLS DIP 99128 COMBINED COMBINED 1 PHYSICIAN PHYSICIAN STICK/TAB S LA S LA LET REAGENT AUTO MICROSCOP Y GROUND A0425 [facility] MILEAGE 1 AMBULANCE AMBULANCE PER SERVICE SERVICE STATUTE MILE BLOOD 62690 YOVANY PEDROZA COUNT 1 [facility] COMPLETE INC INC AUTO&AUTO DIFRNTL WBC COMPREHEN 42547 YOVANY PEDROZA SIVE 1 [facility] METABOLIC INC INC PANEL RADIOLOGI 07795 [facility] 1 MEDICAL ABDIRAHMAN EXAMINATI IMAGING ON CHEST ASS SINGLE VIEW FRONTAL AMB A0427 [facility] SERVICE 1 AMBULANCE AMBULANCE ALS SERVICE SERVICE EMERGENCY TRANSPORT LEVEL 1 PRESSURIZ 81152 YOVANY PEDROZA ED/NONPRE 1 [facility] SSURIZED [place] [address] YOVANY PEDROZA INFUSION 1 [facility] THERAPY/P INC INC ROPHYLAXI S /DX 1ST TO 1 HR THERAPEUT 00705 YOVANY PEDROZA IC 1 [facility] INJECTION INC INC IV PUSH EACH NEW DRUG NONEMERGE A0100 [facility] [place] [facility] NCY 1 COMMUNITY TRANSPORT ACTION ATION; TAXI DEBRIDEME 59246 [facility] OPEN 1 Y Y WOUND 20 [facility] SQ CM/< DEBRIDEME 86763 [facility] OPEN 1 Y Y WOUND 20 [facility] SQ CM/< DEBRIDEME 45116 [facility] NT OPEN 1 FOOT FOOT WOUND 20 PROFESSIO PROFESSIO SQ CM/< NALS NALS NONEMERGE A0100 [place] [place] [facility] NCY 1 COMMUNITY TRANSPORT ACTION ATION; TAXI RADEX 86722 [place] [facility] JAM FOOT 1 MEDICAL COMPLETE SERV MINIMUM 3 FOUNDATIO VIEWS URNLS DIP 85377 COMBINED COMBINED 1 PHYSICIAN PHYSICIAN STICK/TAB S LA S LA LET REAGENT AUTO MICROSCOP Y NONEMERGE A0100 [place] [facility] NCY 0 COMMUNITY TRANSPORT ACTION ATION; TAXI URNLS DIP 59427 COMBINED COMBINED 0 PHYSICIAN PHYSICIAN STICK/TAB S LA S LA LET REAGENT AUTO MICROSCOP Y URNLS DIP 95253 COMBINED COMBINED 0 PHYSICIAN PHYSICIAN STICK/TAB S LA S LA LET REAGENT AUTO MICROSCOP Y CULTURE 46746 COMBINED COMBINED BACTERIAL 0 PHYSICIAN PHYSICIAN S LA S LA QUANTTATI VE COLONY COUNT URINE GROUND A0425 [facility] MILEAGE 0 AMBULANCE AMBULANCE PER SERVICE SERVICE STATUTE MILE AMBULANCE A0429 [facility] SERVICE 0 AMBULANCE AMBULANCE BLS SERVICE SERVICE EMERGENCY TRANSPORT ORTHOPANT 05587 [facility], OGRAM 0 IMPLANT & ERIC R ORAL SURGERY [facility] ECG 15326 YOVANY PEDROZA ROUTINE 0 [facility] ECG INC INC W/LEAST 12 LDS TRCG ONLY W/O I&R ECG 08008 YOVANY NORRIS, ROUTINE 0 [facility] W/LEAST PROF SERV 12 LDS I&R ONLY ECG 59707 YOVANY NORRIS, ROUTINE [address] [facility] W/LEAST PROF SERV 12 LDS I&R ONLY ECG 30259 YOVANY PEDROZA ROUTINE 0 [facility] ECG INC INC W/LEAST 12 LDS TRCG ONLY W/O I&R CREATINE 04489 YOVANY PEDROZA KINASE 0 [facility] TOTAL INC INC AMBULANCE A0429 [facility] SERVICE 0 AMBULANCE AMBULANCE BLS SERVICE SERVICE EMERGENCY TRANSPORT GROUND A0425 [facility] MILEAGE 0 AMBULANCE AMBULANCE PER SERVICE SERVICE STATUTE MILE URNLS DIP 10228 YOVANY PEDROZA 0 [facility] STICK/TAB INC INC LET REAGENT AUTO MICROSCOP Y BASIC 58245 YOVANY PEDROZA METABOLIC 0 [facility] [place] [address] YOVANY PEDROZA TROPONIN 0 [facility] QUANTITAT INC INC SALONI BLOOD 44677 YOVANY PEDROZA COUNT 0 [facility] COMPLETE INC INC AUTO&AUTO DIFRNTL WBC CREATINE 79635 YOVANY PEDROZA KINASE MB 0 [facility] FRACTION INC INC ONLY CREATINE 98737 YOVANY PEDROZA KINASE MB 0 [facility] [place] [address] YOVANY PEDROZA AMYLASE 0 [facility] INC INC BLOOD 15329 YOVANY PEDROZA COUNT 0 [facility] COMPLETE INC INC AUTO&[place] [address] YOVANY PEDROZA TROPONIN 0 [facility] QUANTITAT INC INC SALONI COMPREHEN 32360 YOVANY PEDROZA SIVE 0 [facility] METABOLIC INC INC PANEL URNLS DIP 58279 YOVANY PEDROZA 0 [facility] STICK/TAB INC INC LET REAGENT AUTO MICROSCOP Y AMBULANCE A0429 [facility] SERVICE 0 AMBULANCE AMBULANCE BLS SERVICE SERVICE EMERGENCY TRANSPORT GROUND A0425 [facility] MILEAGE 0 AMBULANCE AMBULANCE PER SERVICE SERVICE STATUTE MILE CREATINE 40110 YOVANY PEDROZA KINASE 0 [facility] TOTAL INC INC ECG 20111 YOVANY MCKEMIE ROUTINE 0 [facility] W/LEAST PROF SERV 12 LDS I&[place] [address] YOVANY PEDROZA LIPASE 0 [facility] INC INC ECG 03011 YOVANY PEDROZA ROUTINE 0 [facility] ECG INC INC W/LEAST 12 LDS TRCG ONLY W/O I&R RADEX ABD 16224 [place] BRITTNEY, COMPL 0 MEDICAL HAYLEY AQT ABD IMAGING W/S/E/D ASSOCIATE VIEWS 1 S VIEW CH DEBRIDEME 86840 ASHA BARRY NT SKIN 0 ANGY ANGY PARTIAL THICKNESS 3D 56949 [place] OSIEL, RENDERING 0 MEDICAL GABRIELLA P W/INTERP IMAGING & [place] [address] [place] OSIEL, HEAD/BRAI 0 MEDICAL GABRIELLA P N W/O IMAGING CONTRAST ASSOCIATE MATERIAL S AMB A0427 [facility] SERVICE 0 AMBULANCE AMBULANCE ALS SERVICE SERVICE EMERGENCY TRANSPORT LEVEL 1 GROUND A0425 [facility] MILEAGE 0 AMBULANCE AMBULANCE PER SERVICE SERVICE STATUTE MILE BLOOD 63498 COMBINED COMBINED COUNT 0 PHYSICIAN PHYSICIAN COMPLETE S LAB S LAB AUTO&AUTO DIFRNTL WBC COLLECTIO 49748 COMBINED COMBINED N VENOUS 0 PHYSICIAN PHYSICIAN BLOOD S LAB S LAB VENIPUNCT URE TRAVEL [address] MED 0 PHYSICIAN PHYSICIAN NEC LAB S LAB S LAB SPEC; PRORATD TRIP CHRG DEBRIDEME 32692 ASHA BARRY NT SKIN 0 ANGY ANGY PARTIAL THICKNESS THERAPEUT 77865 YOVANY PEDROZA IC 0 [facility] INJECTION INC [place] [address] YOVANY PEDROZA INFUSION 0 [facility] THERAPY/P INC INC ROPHYLAXI S /DX 1ST TO 1 HR ECG 29576 YOVANY PEDROZA ROUTINE 0 [facility] ECG INC INC W/LEAST 12 LDS TRCG ONLY W/O I&R 3D 58376 [facility] CARTAGENA, RENDERING 0 MEDICAL GABRIELLA P W/INTERP IMAGING & ASSOCIATE POSTPROCE S SS SUPERVISI ON AMB A0427 [facility] SERVICE 0 AMBULANCE AMBULANCE ALS SERVICE SERVICE EMERGENCY TRANSPORT LEVEL 1 CREATINE 24592 YOVANY PEDROZA KINASE 0 [place] [address] [place] OSIEL, HEAD/BRAI 0 MEDICAL GABRIELLA P N W/O IMAGING CONTRAST ASSOCIATE MATERIAL S ECG 49632 LEYDI FUCHSEY, ROUTINE 0 EMERGENCY ALEX S ECG SERVICES W/LEAST 12 LDS ASSOCIATE I&R ONLY S CREATINE 22295 YOVANY PEDROZA KINASE MB 0 [facility] FRACTION INC INC ONLY BLOOD 21675 YOVANY PEDROZA COUNT 0 [facility] COMPLETE INC INC AUTO&[place] [address] YOVANY PEDROZA TROPONIN 0 [facility] QUANTITAT INC INC SALONI HEPATIC 25197 YOVANY PEDROZA FUNCTION 0 [facility] PANEL INC INC GROUND A0425 [facility] MILEAGE 0 AMBULANCE AMBULANCE PER SERVICE SERVICE STATUTE MILE BASIC 91358 YOVANY PEDROZA METABOLIC 0 [facility] PANEL INC INC CALCIUM TOTAL GROUND A0425 [facility] AM[facility]ULANCE PER SERVICE SERVICE STATUTE MILE AMBULANCE A0429 [facility] SERVICE 9 AMBULANCE AMBULANCE BLS SERVICE SERVICE EMERGENCY TRANSPORT DUP-SCAN 66818 YOVANY PEDROZA XTR VEINS 9 [facility] INC INC UNILATERA L/LIMITED STUDY AMBULANCE A0429 JESSAMINE JESSAMINE SERVICE 9 CO CO BLS AMBULANCE AMBULANCE EMERGENCY TRANSPORT GROUND A0425 JESSAMINE JESSAMINE MILEAGE 9 CO CO PER AMBULANCE AMBULANCE STATUTE MILE ECG 24540 [facility], ROUTINE 9 RADHA DMITRIY G ECG EMERGENCY W/LEAST PHYS INC 12 LDS I&R ONLY ECG 96583 [facility] ROUTINE 9 [facility] ECG W/LEAST 12 LDS TRCG ONLY W/O I&R IIV3 20575 CRIS LYNCH, VACCINE 9 GABI Boateng SPLIT VIRUS 0.5 ML DOSAGE IM USE ADMINISTR G0008 CRIS LYNCH, ATION OF 9 GABI Boateng INFLUENZA VIRUS VACCINE 3D 11473 YOVANY PEDROZA RENDERING 9 [facility] INC INC W/INTERP& POSTPROC DIFF WORK STATION URNLS DIP 48557 YOVANY PEDROZA 9 [facility] STICK/TAB INC INC LET REAGENT AUTO MICROSCOP Y BLOOD 47931 YOVANY PEDROZA COUNT 9 [facility] COMPLETE INC INC AUTO&AUTO DIFRNTL WBC GROUND A0425 [facility] MILEAGE 9 AMBULANCE AMBULANCE PER SERVICE SERVICE STATUTE MILE AMBULANCE A0429 [facility] SERVICE 9 AMBULANCE AMBULANCE BLS SERVICE SERVICE EMERGENCY TRANSPORT BASIC 04501 YOVANY PEDROZA METABOLIC 9 [facility] [place] [address] [place] OSIEL, ABDOMEN 9 MEDICAL GABRIELLA P W/O IMAGING CONTRAST ASSOCIATE MATERIAL S CT PELVIS 23288 [facility]OWN[facility], W/O 9 MEDICAL GABRIELLA P CONTRAST IMAGING MATERIAL ASSOCIATE S SET-UP Q0092 PORTARAAlly PORTARAD PORTABLE 9 [facility] X-RAY EQUIPMENT RADIOLOGI 97851 ANGUS PORTERARAD C 9 [facility] EXAMINATI ON KNEE 3 VIEWS TRANS R0075 [facility] PRTBL 9 Recurly XRAY EQP&PERS GINETTE/NRS GINETTE-TRIP> 1 PT URNLS DIP 45212 COMBINED COMBINED 9 PHYSICIAN PHYSICIAN STICK/TAB S LAB S LAB LET REAGENT AUTO MICROSCOP Y DEBRIDEME 64721 FOLLMER, FOLLMER, NT SKIN 9 ANGY S ANGY S PARTIAL THICKNESS MRI LOWER 12239 BRITTNEYBRITTNEY, EXTREM 9 HAYLEY HAYLEY OTH/THN JT W/O & W/CONTR MATR CREATININ 04796 COMBINED COMBINED E BLOOD 9 PHYSICIAN PHYSICIAN S LAB S LAB COLLECTIO 75671 COMBINED COMBINED N VENOUS 9 PHYSICIAN PHYSICIAN BLOOD [place] [address] COMBINED COMBINED UREA 9 PHYSICIAN PHYSICIAN NITROGEN S LAB S LAB QUANTITAT SALONI TRAVEL [address] MED 9 PHYSICIAN PHYSICIAN NEC LAB S LAB S LAB SPEC; PRORATD TRIP CHRG DEBRIDEME 50107 FOLLMER, FOLLMER, NT SKIN 9 ANGY S ANGY S PARTIAL THICKNESS DEBRIDEME 14813 FOLLMER, FOLLMER, NT SKIN 9 ANGY S ANGY S PARTIAL THICKNESS DEBRIDEME 04804 FOLLMER, FOLLMER, NT SKIN 9 ANGY S ANGY S PARTIAL THICKNESS RADIOLOGI 21209 BOBBI BARRYMER, C 9 ANGY S ANGY S EXAMINATI ON FOOT 2 VIEWS SBSQ 32026 CRIS LYN[facility], NURSING 9 GABI Boateng FACIL CARE/DAY MINOR COMPLJ 15 MIN ORTHOPANT 53041 HI KARAN ESTRADA 8 FOR EDENILSON E ORAL&MAXI LLOFACIAL SURGERY IIV3 51432 CRIS L[facility], VACCINE 8 GABI Boateng SPLIT VIRUS 0.5 ML DOSAGE IM USE ADMINISTR G0008 CRIS LYNCH, ATION OF 8 GABI Boateng INFLUENZA VIRUS VACCINE TRAVEL [address] MED 8 PHYSICIAN PHYSICIAN NEC LAB S LAB S LAB SPEC; PRORATD TRIP CHRG COLLECTIO 67599 COMBINED COMBINED N VENOUS 8 PHYSICIAN PHYSICIAN BLOOD S LAB S LAB VENIPUNCT URE BLOOD 07695 COMBINED COMBINED COUNT 8 PHYSICIAN PHYSICIAN COMPLETE S LAB S LAB AUTO&AUTO DIFRNTL WBC BASIC 85714 COMBINED COMBINED METABOLIC 8 PHYSICIAN PHYSICIAN PANEL S LAB S LAB CALCIUM TOTAL AMBULANCE A0429 [facility] SERVICE 8 AMBULANCE AMBULANCE BLS SERVICE SERVICE EMERGENCY TRANSPORT GROUND A0425 [facility] MILEAGE 8 AMBULANCE AMBULANCE PER SERVICE SERVICE STATUTE MILE RADEX 70964 YOVANY PEDROZA WRIST 8 [facility] COMPLETE INC INC MINIMUM 3 VIEWS SBSQ 89342 CRIS LYNCH, NURSING 8 GABI Boateng FACIL CARE/DAY MINOR COMPLJ 15 MIN SBSQ 22811 CRIS LYNCH, NURSING 8 GABI Boateng FACIL CARE/DAY MINOR COMPLJ 15 MIN Encounters Encounter Start End Date Code Location Performer Type Date EMERGENCY 63296 KENA STEPHENSON DEPT 7 7 [facility] 75193 KENA JAMES DEPT 7 7 [facility] HIGH SEVERITY& THREAT FUN EMERGENCY 99573 YOVANY 7 7 [facility] T VISIT LOW/MODER SEVERITY HOSPITAL YOVANY - 7 7 [facility] OUTPATIEN [facility] T EMERGENCY 04825 KENA HECTOR DEPT 7 7 [facility] H[facility] YOVANY - 7 7 [facility] OUTPATIEN [facility] T EMERGENCY 99921 [facility] VISIT [facility]IGH/URGE NT SEVERITY EMERGENCY 72275 KENA PARKER DEPT 7 7 [facility] HOSPITAL YOVANY - 7 7 [facility] OUTPATIEN [facility] T EMERGENCY 97069 [facility]ANY 7 [facility] T VISIT HIGH/URGE NT SEVERITY EMERGENCY 46375 [facility] DEPT 7 7 PHYSICIAN VISIT S, [facility] HIGH SEVERITY& [facility] HOSPITAL YOVANY - 7 7 [facility]15 [facility]YS[facility]IAN U VISIT S, [facility] HIGH SEVERITY& [facility]AT [facility] HOSPITAL YOVANY - 6 6 [facility] EMERGENCY 44663 [facility] DEPT 6 6 PHYSICIAN BRITTANEY VISIT S, [facility]IGH SEVER[facility]& [facility] EMERGENCY 47966 YOVANY 6 6 [facility] VISIT MODERATE SEVERITY HOSPITAL YOVANY - 6 6 [facility] OFFICE 02143 [facility] 5 5 CLAUDINE BOWLES PHYSICIAN NEW/ESTAB S ASSIST PATIENT 60 MIN [facility]OSPITAL YOVANY - 5 5 [facility] [facility] - 5 5 [facility] - 4 4 [facility] - 3 3 [facility] - 2 2 [facility] - 2 2 [facility] - 2 2 [facility] Y[facility] - 2 2 [facility] OUTPATIEN [facility] 1 1 [facility] EMERGENCY 09602 YOVANY 1 1 [facility] DEPARTMEN [facility] VISIT HIGH/URGE NT SEVERITY EMERGENCY 83492 LEYDI CHRISTOPHER DEPT 1 1 EMERGENCY III MAXIM VISIT SERVICES HIGH SEVERITY& THREAT FUN EMERGENCY 14996 [facility] 1 1 [facility] DEPART[facility] INC T VISIT HIGH/URGE NT SEVERITY [facility] - 1 1 [facility] OUTPATIEN INC T EMERGENCY 47423 LEYDI CHRISTOPHER DEPT 1 1 EMERGENCY III MAXIM VISIT SERVICES HIGH SEVERITY& THREAT [facility] - 1 1 Y [facility] HOSPITAL UNIVERSIT - [address] [facility] T OFFICE 91573 [facility] 1 1 FOOT FOOT T NEW 30 PROFESSIO PROFESSIO MINUTES NALS NALS EMERGENCY 45362 LEYDI HECTOR, 0 0 EMERGENCY [facility] SERVICES T VISIT HIGH/URGE ASSOCIATE NT S SEVERITY EMERGENCY 10835 [facility] 0 0 [facility] DEPART[facility] INC T VISIT LIMITED/M INOR PROB [facility] - 0 0 [facility] OUTPATIEN INC T OFFICE 20441 [facility], OUT[facility]IEN 0 0 IMPLANT & ERIC R T NEW 20 ORAL [facility] SURGERY [facility] EMERGENCY 19450 LEYDI HECTOR, DEPT 0 0 EMERGENCY [facility] VISIT SERVICES HIGH SEVERITY& ASSOCIATE THREAT S [facility] - [facility] 0 [facility] INC T EMERGENCY 62938 [facility] 0 0 [facility] DEPARTMEN INC T VISIT HIGH/URGE NT SEVERITY EMERGENCY 15616 [facility] 0 0 [facility] DEPARTMEN INC T VISIT HIGH/URGE NT SEVERITY [facility] - [facility] 0 [facility] INC T EMERGENCY 26507 LEYDI HECTOR, DEPT 0 0 EMERGENCY [facility] VISIT SERVICES HIGH SEVERITY& ASSOCIATE THREAT S [facility] EMERGENCY 62059 LEYDI CHRISTOPHER DEPT 0 0 EMERGENCY III, VISIT SERVICES LUISANA HIGH SEVERITY& ASSOCIATE THREAT S [facility] Y[facility]ANY - 0 0 [facility] OUTPATIEN INC T EMERGENCY 57864 [facility] MODERATE SEVERITY EMERGENCY 45471 Y[facility]ANY 0 0 [facility] DEPARTMEN INC T VISIT HIGH/URGE NT SEVERITY EMERGENCY 58840 LEYDI HECTOR, DEPT 0 0 EMERGENCY ALEX S VISIT SERVICES HIGH SEVERITY& ASSOCIATE THREAT S [facility] Y[facility] - 0 0 [facility] OUTPATIEN INC T OFFICE 49579 [facility] OUTPATIEN 0 0 ANGY S ANGY S T VISIT 10 MINUTES [facility] - 9 9 [facility] OUTPATIEN INC T EMERGENCY 93398 [facility] 9 9 [facility] LOW/MODER SEVERITY [facility] - 9 9 [facility] OUTPATIEN EMERGENCY 25505 [facility] 9 9 [facility] T VISIT [facility] INC MODERATE SEVERITY EMERGENCY 96548 [facility] 9 9 HOSPITAL VISIT HIGH SEVERITY& THREAT [facility] - 9 9 [facility] OUTPATIEN INC T EMERGENCY 23557 [facility] 9 [facility] HIGH/URGE NT SEVERITY EMERGENCY 63560 LEYDI HECTOR, KARINT 9 9 EMERGENCY ALEX S VISIT SERVICES HIGH SEVERITY& ASSOCIATE THREAT S [facility] OFFICE 22053 [facility] OUTPATIEN 9 9 ANGY S ANGY S T VISIT 10 MINUTES OFFICE 14261 [facility] OUTPATIEN 9 9 ANGY S ANGY S T VISIT 10 MINUTES OFFICE 62156 [facility] OUTPATIEN 9 9 ANGY Liz T NEW 30 MINUTES OFFICE 24798 [facility] JUSTIN HUNTER 8 8 FOR EDENILSON Chen NEW 10 ORAL&MAXI MINUTES [facility] SURGERY [facility] - 8 8 [facility] OUTPATI[facility] INC T EMERGENCY 20560 [facility] 8 8 [facility] DEPARTMEN INC T VISIT MODERATE SEVERITY
--- OUTSIDE RECORDS SUMMARY | 2017-08-20 17:53 | External Medical Summary Rpt | CCD ---
Author Author , [facility] Organization [facility] Address Unknown Phone [email or web address] Care Team Providers Care Enamel Dipper Name Role Phone ALFARIS MOH, ALFARIS Unavailable [...] JAM BRAUDIS JAM, BRAUDIS Unavailable Unavailable JAM [facility] Unavailable Unavailable SERVICE, [facility] Unavailable Unavailable SERVICE, [facility] AMBULANCE SERVICE [facility], [facility] Unavailable Unavailable [facility] Unavailable Unavailable [place], [facility]available Unavailable [facility], [facility] Unavailable Unavailable LAB, [facility] COOK, COOK Unavailable Unavailable COOK BATOOL, COOK BATOOL Unavailable Unavailable RODDY, RODDY Unavailable Unavailable BRITTNEY ABDIRAHMAN, Unavailable Unavailable BRITTNEY ABDIRAHMAN BRITTNEY, HAYLEY, Unavailable Unavailable BRITTNEY, AHYLEY [facility] Unavailable Unavailable DIAGNOSTIC SE, [facility] [...] Unavailable Unavailable [facility]LEX H[facility]OR [facility] Unavailable Unavailable INC, [facility] Unavailable Unavailable HOSPITAL P, [facility] P [facility], Unavailable Unavailable [facility] DMITRIY TREVIZO, Unavailable Unavailable DMITRIY TREVIZO HUBER Unavailable Unavailable [facility] Unavailable Unavailable AMBULANCE, [facility] MANDY REGGIE, MANDY Unavailable Unavailable REGGIE [facility] Unavailable Unavailable [facility], [facility] Unavailable Unavailable [facility], [facility] Unavailable Unavailable IMAGING ASS, [facility] Un[facility] Un[facility], [facility] JR JR DWI, JR Unavailable Unavailable JR DWI JR JR DWI, JR Unavailable Unavailable JR DWI JR, SHIRA E, Unavailable Unavailable JR, SHIRA E [facility] Unavailable Unavailable 11, [facility] 11 [facility] Unavailable Unavailable ACTION, [facility] Unavailable Unavailable SERVICES, [facility] MCKEMIE MAXIM, Unavailable Unavailable ETIENNEKEMIE MAXIM HANY DANIEL MAXIM, Unavailable Unavailable HANY DANIEL MAXIM HANY DANIEL LUISANA Unavailable Unavailable F, LUISANA LEACH JR F ERIC GILLETTE, Unavailable Unavailable ERIC GILLETTE R [facility] Un[facility] Unavailable [facility], [facility] GABRIELLA CARTAGENA, [...] [facility] CASTILLO, Unavailable Unavailable CASTILLO [facility], Unavailable Unavailable [facility] SHALA, SHALA Unavailable Unavailable [facility] Unavailable Unavailable ASSIST, [facility], Unavailable Unavailable [facility] WEHRMAN III MAXIM, Unavailable Unavailable WEHRMAN III MAXIM WEHRMAN III MAXIM, Unavailable Unavailable WEHRMAN III MAXIM WEHRMAN IIILUISANA, Unavailable Unavailable ASHWIN IIILUISANA WISE JAM Unavailable Unavailable Purpose Continuity of Care Document - 12-15-2007 through 2016 Problems Code Diagnosis DOS Provider Status I10 ESSENTIAL 07-31-2017 [facility], HYPERTENSIO PLL N R0789 OTHER CHEST 06-08-2017 [facility], PLLC K219 GASTRO-ESOP 04-26-2017 [facility] DISEASE INC WITHOUT ESOPHAGITIS R079 CHEST PAIN 04-26-2017 [facility] Z720 TOBACCO USE 04-26-2017 [facility] INC R918 OTHER 04-08-2017 [facility] NONSPECIFIC [facility]ICAL ABNORMAL IMAGING ASS FINDING OF LUNG FIELD O58106 OTHER LONG 04-08-2017 [facility] P DRUG THERAPY D649 ANEMIA 03-12-2017 [facility] [place] I498 OTHER 02-22-2017 [facility] SPECIFIED AMBULANCE CARDIAC SERVICE ARRHYTHMIAS J9811 ATELECTASIS 02-22-2017 [facility] I208 OTHER FORMS 01-21-2017 [facility] PECTORIS GROUP R0602 SHORTNESS 01-21-2017 [facility] OF BREATH PHYSICIANS GROUP R069 UNSPECIFIED 01-21-2017 [facility] ABNORMALITI GROUP ES OF BREATHING R251 TREMOR 01-17-2017 [facility] UNSPECIFIED PHYSICIANS, [facility] R4182 ALTERED 01-17-2017 [facility] AMBULANCE STATUS SERVICE UNSPECIFIED I209 ANGINA 01-13-2017 [facility] PECTORIS [facility] UNSPECIFIED INC R0600 DYSPNEA 01-13-2017 [facility] UNSPECIFIED [facility] INC [id number] PAIN IN 07-23-2016 [facility] DIAGNOSTIC SE E876 HYPOKALEMIA 07-05-2016 [facility] PLLC K209 ESOPHAGITIS 07-05-2016 [facility] UNSPECIFIED INC K5900 CONSTIPATIO 07-05-2016 [facility] N PHYSICIANS, UNSPECIFIED PLL N200 CALCULUS OF 07-05-2016 [facility] R1084 GENERALIZED 07-05-2016 [facility] ABDOMINAL [facility] PAIN IM[facility]ING ASS R1110 VOMITING 07-05-2016 [facility] R112 NAUSEA WITH 07-05-2016 [facility] VOMITING PHYSICIANS, UNSPECIFIED [facility] B351 TINEA 05-28-2016 BRAUDIS JAM UNGUIUM P45718 UNS 05-28-2016 BRAUDIS JAM ATHEROSCLER [place] ART EXTREM BILATERAL LEGS P86129 PAIN IN 05-28-2016 BRAUDIS JAM RIGHT TOES G40974 PAIN IN 05-28-2016 BRAUDIS JAM LEFT TOES J189 PNEUMONIA 05-01-2016 [facility] UNSPECIFIED [facility]ICAL ORGANISM IMAGING ASS J984 OTHER 05-01-2016 [facility] DISORDERS MEDICAL OF LUNG IMAGING ASS K210 GASTRO-ESOP 05-01-2016 [facility] P DISEASE W/ ESOPHAGITIS R05 COUGH 05-01-2016 [facility] R1010 UPPER 05-01-2016 [facility] ABDOMINAL AMB[facility]ANCE PAIN SERVICE UNSPECIFIED R109 UNSPECIFIED 10-24-2015 [facility] ABDOMINAL PHYSICIANS PAIN ASSIST R69 ILLNESS 10-24-2015 [facility] UNSPECIFIED TRANSPORTAT ION SER Z791 FILLER SHAKER 10-24-2015 [facility] CURR PHYSICIANS NON-STEROID ASSIST AL&ANTI-INF LAMMATORIES J219 ACUTE 10-09-2015 [facility] BRONCHIOLIT [facility] IS INC UNSPECIFIED J441 CHRONIC 10-09-2015 [facility] PULMONARY INC DZ W/EXACERBAT ION E119 TYPE 2 08-22-2015 EXPRESS DIABETES MOBILE MELLITUS DIAGNOSTIC WITHOUT SE COMPLICATIO NS R96704 PAIN IN 08-22-2015 [facility] LEFT HIP [facility]ICAL [facility] ASS L55086 PAIN IN 08-22-2015 [facility] LEFT KNEE MEDICAL IMAGING ASS X00321 PAIN IN 08-22-2015 [facility] LEFT THIGH [facility]ICAL IM[facility] ASS P63617I UNSPECIFIED 08-22-2015 EXPRESS INJURY MOBILE LEFT HIP DIAGNOSTIC INITIAL SE ENCOUNTER L851 ACQ 08-21-2015 NO[facility] MORENO KERATOSIS KERATODERMA PALMARIS ET PLANTARIS 95408 ABDOMINAL 05-30-2015 [facility] PAIN, MEDICAL EPIGASTRIC IMAGING ASS 72651 OTHER 05-21-2015 [facility] DYSPNEA AND MEDICAL [place]AG[place] [address] CHEST PAIN 05-21-2015 [facility]PEC[facility] IM[facility]ING ASS 40588 05-21-2015 [facility] TRANSPORTAT ION SER 5180 PULMONARY 05-07-2015 [facility]LL[facility]SE [facility] 4019 UNSPECIFIED 04-06-2015 [facility] P N 21225 DIVERTICULO 03-25-2015 [facility] SIS OF MEDICAL COLON IMAGING ASS 1101 DERMATOPHYT 11-27-2014 NOEMI MORENO OSIS OF NAIL 18980 ATHEROSCLER 11-27-2014 NOEMI MORENO OSIS [place] ART EXTREMITIES UNSPEC 7011 ACQUIRED 11-27-2014 NOEMI MORENO KERATODERMA 7295 PAIN IN 11-27-2014 NOEMI MORENO SOFT TISSUES OF LIMB 7862 COUGH 08-16-2014 [facility] 42236 NONSPEC 08-09-2014 [facility] REACT MOBILE TUBERCULIN DIAGNOSTIC SKIN TEST SE W/O ACTIVE TB 515 POSTINFLAMM 06-05-2014 [facility] ATORY [facility]ICAL PULMONARY IMAGING ASS FIBROSIS 7851 PALPITATION 06-05-2014 [facility] S [facility] 496 CHRONIC 05-27-2014 [facility] AIRWAY MEDICAL OBSTRUCTION IMAGING ASS NEC 6101 DIFFUSE 05-03-2014 [facility]ERGENCY MASTOPATHY PHYS 23239 MASTODYNIA 05-03-2014 JR JR DWI 4928 OTHER 04-25-2014 [facility] EMPHYSEMA [facility] 7866 SWELLING, 04-25-2014 [facility] MASS, OR [facility] LUMP IN INC CHEST 01595 OTHER 04-25-2014 [facility] NONSPECIFIC MEDICAL ABNORMAL IMAGING ASS FINDING OF LUNG FIELD 2768 HYPOPOTASSE 04-05-2014 WEHRMAN III PEG MAXIM 20726 TRANSIENT 02-17-2014 [facility] FLA VISUAL LOSS 36201 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 99942 PSYCHOPHYSI 02-16-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 LYDIA MANSI VISUAL DISTURBANCE S 80349 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-16-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 LYDIA CEREBRAL ARTERY OCCLUSION W/INFARCT 76575 OSTEOARTHRO 09-02-2013 PETTEY JAM SIS UNSPEC WHETHER GEN/LOC LOWER LEG 74332 PAIN IN 09-02-2013 [facility] JOINT, [facility] LOWER LEG INC 4660 ACUTE 10-22-2012 JR JR BRONCHITIS DWI 490 BRONCHITIS 10-22-2012 LISETTE MAXIM NOT SPECIFIED ACUTE OR CHRONIC 7802 SYNCOPE AND 08-04-2012 [facility] 01148 OTHER CHEST 08-03-2012 [facility] LYDIA PAIN 2749 GOUT, 06-25-2012 [facility] LYDIA UNSPECIFIED 22497 SHORTNESS 06-25-2012 [facility] LYDIA OF BREATH 4111 INTERMEDIAT 05-28-2012 LISETTE MAXIM E CORONARY SYNDROME 4139 OTHER AND 05-28-2012 [facility] DANIEL UNSPECIFIED MAXIM [facility] PECTORIS 22937 OTHER 05-28-2012 [facility] DISEASES OF MEDICAL LUNG NOT IMAGING ASS ELSEWHERE CLASSIFIED 5990 URINARY 03-12-2011 [facility] TRACT [facility] INFECTION LA SITE NOT SPECIFIED 43677 OTHER 03-12-2011 [facility] ABNORMAL PHYSICIANS GLUCOSE LA 9597 INJURY 03-12-2011 [facility] OTHER&UNSPE PHYSICIANS CIFIED KNEE LA LEG ANKLE&FOOT 5589 OTH&UNSPEC 02-05-2011 [facility] NONINFECTIO [facility] US INC GASTROENTER ITIS&COLITI S 98859 OTHER 02-05-2011 [facility] MALAISE AND AMBULANCE FATIGUE SERVICE 11934 NAUSEA WITH 02-05-2011 [facility] 01789 DIARRHEA 02-05-2011 [facility] V5869 LONG-TERM 02-05-2011 [facility] (CURRENT) [facility] USE OF INC OTHER MEDICATIONS 700 CORNS AND 01-27-2011 [facility] 8930 OPEN WOUND 01-06-2011 [facility] WITHOUT HOSPITAL MENTION COMPLICATIO N 7350 HALLUX 12-16-2010 [facility] SERV FOUNDATIO 7354 OTHER 12-16-2010 [facility] HAMMER TOE FOOT PROFESSIONA LS 8931 OPEN WOUND 12-16-2010 [facility] [place] [address] HEAD 04-03-2010 [facility] INJURY, AMBULANCE UNSPECIFIED SERVICE 920 CONTUSION 04-02-2010 [facility] SCALP AND SERVICES [facility]CEPT [facility] EYE E8889 UNSPECIFIED 04-02-2010 [facility] 5210 DENTAL 03-04-2010 [facility] 7245 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-15-2010 [facility] BACKACHE AMBULANCE SERVICE 91925 ABDOMINAL 01-31-2010 [facility] PAIN, MEDICAL UNSPECIFIED IMAGING SITE ASSOCIATES 64537 ABDOMINAL 01-31-2010 [facility] PAIN, AMBULANCE GENERALIZED SERVICE 57538 ULCER OF 01-30-2010 [facility] ANGY OTHER PART OF FOOT 16188 UNSPECIFIED 01-26-2010 [facility] VERTIGO SERVICES [facility]OC[facility]ATES 7804 DIZZINESS 01-26-2010 [facility] AND MEDICAL GIDDINESS IMAGING ASSOCIATES 7840 HEADACHE 01-26-2010 [facility] AMBULANCE SERVICE 4619 ACUTE 12-02-2009 [facility] SINUSITIS, [facility] PROF SERV 26807 POISONING 09-21-2009 [facility] BY OPIATES N EMERGENCY AND RELATED PHYS INC NARCOTICS OTHER V0481 NEED 09-17-2009 BRENDAN LYNCH VACCINATION &INOCULATIO N FLU 65439 HEMATURIA 07-27-2009 [facility] UNSPECIFIED AMBULANCE SERVICE 42415 ABDOMINAL 07-27-2009 [facility] OTHER EMERGENCY SPECIFIED SERVICES SITE ASSOCIATES 82555 PAIN IN 04-19-2009 BRITTNEY, JOINT, HAYLEY ANKLE AND FOOT 6829 CELLULITIS 02-23-2009 CRIS, AND ABSCESS GABI Boateng OF UNSPECIFIED SITE 5253 RETAINED 10-18-2008 [facility] DENTAL [facility] OFACIAL SURGERY 70570 PAIN IN 07-15-2008 [facility] JOINT, AMBULANCE FOREARM SERVICE 30499 SPRAIN AND 07-15-2008 [facility] STRAIN OF MEDICAL UNSPECIFIED IMAGING SITE OF ASSOCIATES WRIST E8497 PLACE OF 07-15-2008 [facility] OCCURRENCE MEDICAL RESIDENTIAL IMAGING ASSOCIATES INSTITUTION E927 OVEREXERTIO 07-15-2008 [facility] N&STRENUOUS MEDICAL &REPETITIVE IMAGING ASSOCIATES MVMNTS/LOAD S 86011 OSTEOARTHRO 06-23-2008 Agusto LYNCH INVLV MX GABI [...] 80 7- 1- 00 14 CA ve LA 01 20 20 72 RE AM 00 [...] 10 MA CY MG TA BL ET LA 59 07 08 28 7 00 ME [...] 30 2- 4- 00 14 CA ve AR 31 20 20 58 RE DE 10 [...] 80 7- 8- 00 14 CA ve LA 01 20 20 53 RE AM 00 [...] AR MA MG CY TA BL ET LA 59 06 07 28 7 00 ME [...] 80 8- 7- 00 14 CA ve LA 01 20 20 35 RE AM 00 [...] 20 2- 2- 00 14 CA ve LA 00 20 20 18 RE AM 60 [...] 20 4- 5- 00 14 CA ve LA 00 20 20 04 RE AM 60 [...] 20 7- 7- 00 13 CA ve LA 00 20 20 90 RE AM 60 [...] 20 7- 0- 00 13 CA ve LA 00 20 20 76 RE AM 60 [...] 80 0- 7- 00 13 CA ve LA 01 20 20 62 RE AM 00 [...] 80 1- 3- 00 13 CA ve LA 01 20 20 47 RE AM 00 [...] 00 1. 1 ME 36 AR Ac LA 78 -1 -0 00 D 71 NO [...] PLLC D/T ACTIVE DX HYPERTENS ION ECG 88688 [facility] STEPHENSON ROUTINE 7 PHYSICIAN U ECG S, PLLC W/LEAST 12 LDS I&R ONLY ECG 45659 [facility] PEDROZA ROUTINE 7 [facility] ECG INC INC W/LEAST 12 LDS TRCG ONLY W/O I&R ECG 89097 KENA JAMES ROUTINE 7 PHYSICIAN ECG S, PLLC W/LEAST 12 LDS I&R ONLY RADIOLOGI 95460 YOVANY PEDROZA C 7 [facility] EXAMINATI INC INC ON CHEST SINGLE VIEW FRONTAL PATIENT G9744 KENA JAMES NOT 7 PHYSICIAN ELIGIBLE S, PLLC D/[place] [address] [facility] PEDROZA TROPONIN 7 [facility] QUANTITAT INC INC SALONI COLLECTIO 96702 [facility] PEDROZA N VENOUS 7 [facility] H[facility] BLOOD INC INC VENIPUNCT URE COMPREHEN 90218 [facility] PEDROZA SIVE 7 MEM H[facility] METABOLIC INC INC PANEL BLOOD 12556 [facility] PEDROZA COUNT 7 [facility] COMPLETE INC INC AUTO&AUTO DIFRNTL WBC COMPREHEN 97828 [facility] PEDROZA SIVE 7 MEM HOS[facility]OS[facility] METABOLIC INC INC PANEL BLOOD 32311 [facility] PEDROZA COUNT 7 [facility] COMPLETE INC INC AUTO&[place] [address] [facility] PEDROZA TROPONIN 7 [facility] HOS[facility] QUANTITAT INC INC SALONI CREATINE 43435 [facility] PEDROZA KINASE MB 7 MEM HOSP [facility] FRACTION INC INC ONLY GROUND A0425 [facility] MILEAGE 7 AMBULANCE AMBULANCE PER SERVICE SERVICE STATUTE MILE CREATINE 51110 [facility] PEDROZA KINASE 7 MEM HOS[facility] TOTAL INC INC AMB A0427 [facility] SERVICE 7 AMBULANCE AMBULANCE ALS SERVICE SERVICE EMERGENCY TRANSPORT LEVEL 1 ECG 99921 [facility] PEDROZA ROUTINE 7 [facility] ECG INC INC W/LEAST 12 LDS TRCG ONLY W/O I&R RADIOLOGI 70895 DOYLE Guzmán 7 MEDICAL EXAMINATI IMAGING ON CHEST ASS SINGLE VIEW FRONTAL ECG 32099 KENA HECTOR ROUTINE 7 PHYSICIAN ECG S, PLLC W/LEAST 12 LDS I&R ONLY BASIC 65106 COM[facility] COMBINED METABOLIC 7 PHYSICIAN PHYSICIAN PANEL S LA S LA CALCIUM TOTAL COLLECTIO 63039 COMBINED COMBINED N VENOUS 7 PHYSICIAN PHYSICIAN BLOOD S LA S LA VENIPUNCT URE TRAVEL [address] MED 7 PHYSICIAN PHYSICIAN NEC LAB S LA S LA SPEC; [place] [address] [facility] PEDROZA TROPONIN 7 MEM HOS[facility] [address] Y[facility] PEDROZA TROPONIN 7 [facility] QUANTITAT INC INC SALONI CREATINE 45150 Y[facility] PEEK KINASE MB 7 [place] [address] [facility] PEDROZA AMYLASE 7 [facility] H[facility] INC INC BLOOD 89786 [facility] PEDROZA COUNT 7 [facility] COMPLETE INC INC AUTO&AUTO DIFRNTL WBC COMPREHEN 05675 [facility] LAST SIVE 7 [facility] METABOLIC INC PANEL GROUND A0425 [facility] 7 AMBULANCE AMBULANCE PER SERVICE SERVICE STATUTE MILE ECG 58009 [facility] ECHEVARRIA ROUTINE 7 [facility] W/LEAST P 12 LDS I&R ONLY RADIOLOGI 60670 KENAChey RUSSO C 7 PHYSICIAN EXAMINADAILY S, PLLC ON CHEST SINGLE VIEW FRONTAL ECG 98384 [facility] PEDROZA ROUTINE 7 [facility] ECG INC INC W/LEAST 12 LDS TRCG ONLY W/O I&R AMB A0427 [facility] SERVICE 7 AMBULANCE AMBULANCE ALS SERVICE SERVICE EMERGENCY TRANSPORT LEVEL 1 CREATINE 66243 [facility] RODDY KINASE 7 [place] [address] Y[facility] PEDROZA LIPASE 7 [facility] INC INC RADIOLOGI 70557 [facility] C EXAM 7 MEDICAL MEDICAL CHEST 2 IMAGING IMAGING VIEWS ASS ASS FRONTAL&L ATERAL MYOCARDIA 01519 [facility] SRIVASTAV L SPECT 7 PHYSICIAN A MULTIPLE S GROUP STUDIES CV STRS 74589 [facility] COOK TST 7 PHYSICIAN XERS&/OR S GROUP RX CONT ECG W/O I&R GROUND A0425 [facility]ANCE AMBULANCE PER SERVICE SERVICE STATUTE MILE AMB A0427 [facility] SERVICE 7 AMBULANCE AMBULANCE ALS SERVICE SERVICE EMERGENCY TRANSPORT LEVEL 1 ECG 13239 [facility] R[facility] 7 PHYSICIAN ECG S, PLLC W/LEAST 12 LDS I&R ONLY ECG 65999 [facility] PEDROZA ROUTINE 7 [facility] ECG INC INC W/LEAST 12 LDS TRCG ONLY W/O I&R ECG 08110 [facility] ECHEVARRIA ROUTINE 7 [facility] W/LEAST P 12 LDS I&R ONLY CT THORAX 73548 [facility] 7 MEDICAL W/CONTRAS IMAGING T ASS MATERIAL AMB A0427 [facility] SERV[facility] 7 AMBULANCE AMBULANCE ALS SERVICE SERVICE EMERGENCY TRANSPORT LEVEL 1 RADIOLOGI 29065 [facility] 7 MEDICAL EXAMINATI IMAGING ON CHEST ASS SINGLE VIEW FRONTAL GROUND A0425 [facility] MILEAGE 7 AMBULANCE AMBULANCE PER SERVICE SERVICE STATUTE MILE BASIC 75841 [facility] COMBINED METABOLIC 7 PHYSICIAN PHYSICIAN PANEL S LA S LA CALCIUM TOTAL COLLECTIO 09241 COMBINED COMBINED N VENOUS 7 PHYSICIAN PHYSICIAN BLOOD S LA S LA VENIPUNCT URE TRAVEL [address] MED 7 PHYSICIAN PHYSICIAN NEC LAB S LA S LA SPEC; PRORATD TRIP CHRG TRAVEL [address] MED 6 PHYSICIAN PHYSICIAN NEC LAB S LA S LA SPEC; PRORATD TRIP CHRG COLLECTIO 64071 COMBINED COMBINED N VENOUS 6 PHYSICIAN PHYSICIAN BLOOD S LA S LA VENIPUNCT URE BLOOD 75568 COMBINED COMBINED COUNT 6 PHYSICIAN PHYSICIAN COMPLETE S LA S LA AUTO&AUTO DIFRNTL WBC COMPREHEN 19417 COMBINED COMBINED SIVE 6 PHYSICIAN PHYSICIAN METABOLIC S LA S LA PANEL COMPREHEN 64162 COMBINED COMBINED SIVE 6 PHYSICIAN PHYSICIAN METABOLIC S LA S LA PANEL COLLECTIO 34641 COMBINED COMBINED N VENOUS 6 PHYSICIAN PHYSICIAN BLOOD S LA S LA VENIPUNCT URE BLOOD 26438 COMBINED COMBINED COUNT 6 PHYSICIAN PHYSICIAN COMPLETE S LA S LA AUTO&AUTO DIFRNTL WBC TRAVEL [address] MED 6 PHYSICIAN PHYSICIAN NEC LAB S LA S LA SPEC; PRORATD TRIP CHRG ECG 12509 [facility] NORRIS JR ROUTINE 6 [facility] W/LEAST P 12 LDS I&R ONLY CT THORAX 87422 [facility] MURILLO ALL 6 MEDICAL W/CONTRAS IMAGING T ASS MATERIAL RADIOLOGI 76885 [facility] C 6 MEDICAL MEDICAL EXAMINATI IMAGING IMAGING ON CHEST ASS ASS SINGLE VIEW FRONTAL AMB A0427 [facility] SERVICE 6 AMBULANCE AMBULANCE ALS SERVICE SERVICE EMERGENCY TRANSPORT LEVEL 1 GROUND A0425 [facility]ANCE AMBULANCE PER SERVICE SERVICE STATUTE MILE SET-UP Q0092 [facility] PORTABLE 6 MOBILE MOBILE X-RAY DIAGNOSTI DIAGNOSTI EQUIPMENT C SE C SE RADEX 65396 [facility] FOOT 6 MOBILE MOBILE COMPLETE DIAGNOSTI DIAGNOSTI MINIMUM 3 C SE C SE VIEWS TRANS R0070 [facility] PRTBL 6 MOBILE MOBILE X-RAY DIAGNOSTI DIAGNOSTI EQP&PERS C SE C SE GINETTE/NRS GINETTE-TR[place] 1 [place] [address] Y[facility] PEDROZA INFUSION 6 [facility] THERAPY/P INC INC ROPHYLAXI S /DX 1ST TO 1 HR THERAPEUT 90790 [facility] PEDROZA IC 6 [facility] INJECTION [place] [address] [facility] PEDROZA INFUSION 6 [facility] THER INC INC PROPH ADDL SEQUENTIA L TO 1 HR URNLS DIP 42626 [facility] PEDROZA 6 [facility] STICK/TAB INC INC LET REAGENT AUTO MICROSCOP Y CULTURE 06760 [facility] PEDROZA BACTERIAL 6 [facility] INC INC QUANTTATI VE COLONY COUNT URINE CULTURE 85888 [facility] PEDROZA BCT 6 [facility] ISOL&PRSM INC INC PTV ID ISOLATE EA URINE SUSCEPTIB 54657 [facility] PEDROZA LTY STDY 6 [facility] ANTIMICRB INC INC IAL MICRO/AGA R DILUTJ BLOOD 95275 [facility] PEDROZA COUNT 6 [facility] COMPLETE INC INC AUTO&AUTO DIFRNTL WBC COMPREHEN 35478 [facility] PEDROZA SIVE 6 [facility] [place] [address] OYVANY PEDROZA TROPONIN 6 [facility] QUANTITAT INC INC SALONI PATIENT G8784 KENA RENUSC NOT 6 PHYSICIAN BRITTANEY IZAGUIRRE S, [facility] E.G. PT REFUSES URGENT/EM SIT GROUND A0425 [facility] MILEAGE 6 AMBULANCE AMBULANCE PER SERVICE SERVICE STATUTE MILE AMBULANCE A0429 [facility] SERVICE 6 AMBULANCE AMBULANCE BLS SERVICE SERVICE EMERGENCY TRANSPORT ECG 29129 YOV[facility] NORRIS JR ROUTINE 6 [facility] W/LEAST P 12 LDS I&[place] [address] [facility] ALL ABDOMEN & 6 MEDICAL PELVIS IMAGING W/O ASS CONTRAST MATERIAL 12-LEAD 3120F [facility] ECG 6 PHYSICIAN BRITTANEY PERFORMED S, [facility] RADIOLOGI [id number] YOVANY PEDROZA C 6 [facility]OSP EXAMINATI INC [place] [address] YOVANY PEDROZA LIPASE 6 [facility] INC INC ECG 04564 YOVANY PEDROZA ROUTINE 6 [facility] ECG INC INC W/LEAST 12 LDS TRCG ONLY W/O I&R TRAVEL [address] MED 6 PHYSICIAN PHYSICIAN NEC LAB S LA S LA SPEC; PRORATD TRIP CHRG BASIC 43001 COMBINED COMBINED METABOLIC 6 PHYSICIAN PHYSICIAN PANEL S LA S LA CALCIUM TOTAL COLLECTIO 53413 COMBINED COMBINED N VENOUS 6 PHYSICIAN PHYSICIAN BLOOD S LA S LA VENIPUNCT URE DEBRIDEME 62905 NOEMI FRANKLIN NT NAIL 6 JAM JAM ANY METHOD 6/> PARING/CU 89986 NOEMI FRANKLIN TTING 6 JAM JAM BENIGN HYPERKERA TOTIC LESION 2-4 BLOOD 64158 YOVANY PEDROZA OCCULT 6 [facility] PEROXIDAS INC INC E ACTV QUAL FECES 1-3 [place] [address] YOVANY PEDROZA TROPONIN 6 [facility] [place] [address] YOVANY PEDROZA AMYLASE 6 [facility] INC INC CREATINE 74640 YOVANY PEDROZA KINASE MB 6 [facility] FRACTION INC INC ONLY COMPREHEN 12897 YOVANY PEDROZA SIVE 6 [facility] METABOLIC INC INC PANEL BLOOD 09734 YOVANY PEDROZA COUNT 6 [facility] COMPLETE INC INC AUTO&AUTO DIFRNTL WBC GROUND A0425 [facility] AM[facility] PER SERVICE SERVICE STATUTE MILE CREATINE 45764 YOVANY PEDROZA KINASE 6 [facility] TOTAL INC INC AMB A0427 [facility] SERVICE 6 AMBULANCE AMBULANCE ALS SERVICE SERVICE EMERGENCY TRANSPORT LEVEL 1 RADIOLOGI 98762 DOYLE LUGO C EXAM 6 MEDICAL ABDIRAHMAN CHEST 2 IMAGING VIEWS ASS [place] [address] YOVANY PEDROZA LIPASE 6 [facility] INC INC ECG 03887 YOVANY PEDROZA ROUTINE 6 [facility] ECG INC INC W/LEAST 12 LDS TRCG ONLY W/O I&R ECG [id number] YOVANY ECHEVARRIA ROUTINE 6 [facility] W/LEAST P 12 LDS I&R ONLY BASIC 11614 COMBINED COMBINED METABOLIC 6 PHYSICIAN PHYSICIAN PANEL S LA S LA CALCIUM TOTAL BLOOD 50796 COMBINED COMBINED COUNT 6 PHYSICIAN PHYSICIAN COMPLETE S LA S LA AUTO&AUTO DIFRNTL WBC COLLECTIO 72292 COMBINED COMBINED N VENOUS 6 PHYSICIAN PHYSICIAN BLOOD S LA S LA VENIPUNCT URE TRAVEL [address] MED 6 PHYSICIAN PHYSICIAN NEC LAB S LA S LA SPEC; PRORATD TRIP CHRG DEBRIDEME 40110 SERGS BRAUDIS NT NAIL 6 JAM JAM ANY METHOD 1-5 PARING/CU 82082 BRAUDIS BRAUDIS TTING 6 JAM JAM BENIGN HYPERKERA TOTIC LESION 2-4 TRIMMING 05315 BRAUDIS BRAUDIS NONDYSTRO 6 JAM JAM PHIC NAILS ANY NUMBER PARING/CU 14940 BRAUDIS BRAUDIS TTING 5 JAM JAM BENIGN HYPERKERA TOTIC LESION 2-4 DEBRIDEME [address] NOEMI PANDEYUDIS NT NAIL 5 JAM JAM ANY METHOD 6/> NONEMERG A0120 FEDERATED FEDERATED TRNSPRT: 5 MINI-BUS TRANSPORT TRANSPORT MTN ATION SER ATION SER AREA/OT SYS RADIOLOGI 99923 YOVANY Guzmán EXAM 5 [facility] CHEST 2 INC INC VIEWS FRONTAL&L ATERAL RADEX HIP 47302 [place] BRITTNEY 5 MEDICAL ABDIRAHMAN UNILATERA IMAGING L ASS COMPLETE MINIMUM 2 VIEWS RADIOLOGI 00564 EXPRESS EXPRESS C 5 MOBILE MOBILE EXAMINATI DIAGNOSTI DIAGNOSTI ON FEMUR C SE C SE [address] PELVIS 31261 [place] MURILLO ALL W/O 5 MEDICAL CONTRAST IMAGING MATERIAL ASS RADIOLOGI 99763 [place] BRITTNEY C 5 MEDICAL ABDIRAHMAN EXAMINATI IMAGING ON KNEE ASS 1/2 VIEWS DEBRIDEME 33320 NOEMI BRAUDIS NT NAIL 5 JAM JAM ANY METHOD 1-5 PARING/CU 52233 BRAUDIS BRAUDIS TTING 5 JAM JAM BENIGN HYPERKERA TOTIC LESION 2-[place] [address] [place] MURILLO ALL ABDOMEN & 5 MEDICAL PELVIS IMAGING W/O ASS CONTRAST MATERIAL CV STRS 65273 YOVANY NORRIS JR TST 5 [facility] RX CONT P ECG I&R ONLY MYOCARDIA 16917 [place] BRITTNEY L SPECT 5 MEDICAL ABDIRAHMAN MULTIPLE IMAGING STUDIES ASS NONEMERG A0120 FEDERATED FEDERATED TRNSPRT: 5 MINI-BUS TRANSPORT TRANSPORT MTN ATION SER ATION [facility] AREA/OT SYS CV STRS 68616 [facility] TST 5 PHYSICIAN XERS&/OR S GROUP RX CONT ECG W/O I&R NONEMERG A0120 FEDERATED FEDERATED TRNSPRT: 5 MINI-BUS TRANSPORT TRANSPORT MTN ATION SER ATION SER AREA/OT SYS RADIOLOGI 71013 [facility] 5 MEDICAL ERUM EXAMINATI IMAGING ON CHEST ASS SINGLE VIEW FRONTAL ECG 00220 YOVANY ECHEVARRIA ROUTINE 5 [facility] W/LEAST P 12 LDS I&R ONLY RADIOLOGI 91773 YOVANY PEDROZA C 5 [facility] EXAMINATI INC INC ON CHEST SINGLE VIEW FRONTAL RADIOLOGI 26343 DOYLE YUNG C 5 MEDICAL ERUM EXAMINATI IMAGING [place] [address] DOYLE YUNG ABDOMEN & 5 MEDICAL ERUM PELVIS IMAGING W/O ASS CONTRAST MATERIAL PARING/CU 54669 NOEMI FRANKLIN TTING 5 JAM JAM BENIGN HYPERKERA TOTIC LESION 2-4 RADIOLOGI 83529 DOYLE YUNG C EXAM 4 MEDICAL ERUM CHEST 2 IMAGING VIEWS ASS FRONTAL&L ATERAL RADIOLOGI 01903 EXPRESS EXPRESS C EXAM 4 MOBILE MOBILE CHEST 2 DIAGNOSTI DIAGNOSTI VIEWS C SE C SE FRONTAL&L ATERAL NONEMERG A0120 FEDERATED FEDERATED TRNSPRT: 4 TRANS [facility] SER ROEL AREA/OTH SYS ECG 35378 ALFARIS ALFARIS ROUTINE 4 MOH MOH ECG W/LEAST 12 LDS I&R ONLY RADIOLOGI 66376 DOYLE YUNG C 4 MEDICAL ERUM EXAMINATI IMAGING ON CHEST ASS SINGLE VIEW FRONTAL RADIOLOGI 27518 DOYLE LUGO C 4 MEDICAL ABDIRAHMAN EXAMINATI IMAGING ON CHEST ASS SINGLE VIEW FRONTAL NONEMERG A0120 FEDERATED FEDERATED TRNSPRT: 4 TRANS [facility] SER ROEL AREA/OTH SYS ECG 49138 JR NORRIS JR ROUTINE 4 DWI DWI ECG W/LEAST 12 LDS I&R ONLY RADIOLOGI 08681 DOYLE CORTEZUTCHER C 4 MEDICAL ABDIRAHMAN EXAMINATI IMAGING ON CHEST ASS SINGLE VIEW FRONTAL CT THORAX 77077 DOYLE GARCIACHER W/O 4 MEDICAL ABDIRAHMAN CONTRAST IMAGING MATERIAL ASS NONEMERG A0120 FEDERATED FEDERATED TRNSPRT: 4 TRANS [facility] TRANSPORT [facility] SER ROEL AREA/OTH SYS RADIOLOGI 05857 DOYLE LUGO C 4 MEDICAL ABDIRAHMAN EXAMINATI IMAGING ON CHEST ASS SINGLE VIEW FRONTAL ECG 36015 ASHWIN CHRISTOPHER ROUTINE 4 III MAXIM III MAXIM ECG W/LEAST 12 LDS I&R ONLY NONEMERG A0120 FEDERATED FEDERATED TRNSPRT: 4 MINI-BUS TRANSPORT TRANSPORT MTN ATION SER ATION SER AREA/OTH SYS NONEMERG A0120 FEDERATED FEDERATED TRNSPRT: 4 [facility] TRANSPORT TRANSPORT MTN ATION SER ATION SER AREA/[place] [address] RASLAU RASLAU ANGIOGRAP 4 FLA FLA HY NECK W/CONTRAS T/[place] [address] RASLAU RASLAU ANGIOGRAP 4 FLA FLA HY HEAD W/CONTRAS T/NONCONT RAST CRITICAL 66366 CHIQUITA LYDIA CHIQUITA LYDIA CARE 4 ILL/INJUR ED PATIENT INIT 30-74 MIN DEBRIDEME 38220 NOEMI FRANKLIN NT NAIL 4 JAM JAM ANY METHOD 6/> PARING/CU 84894 NOEMI ULRICHS TTING 4 JAM JAM BENIGN HYPERKERA TOTIC LESION 2-4 RADIOLOGI 97793 BRITTNEY BRITTNEY C EXAM 3 ABDIRAHMAN ABDIRAHMAN KNEE COMPLETE 4/MORE VIEWS INJ J0702 PETTEY PETTEY BETAMETHA 3 JAM JAM SONE ACETATE & PHOSPHATE 3 MG ARTHROCEN 82224 PETTEY PETTEY TESIS 3 JAM JAM ASPIR&/IN J MAJOR JT/BURSA W/O US NONEMERG A0120 LKLP CAC LKLP CAC TRNSPRT: 3 INC INC MINI-BUS REGION 11 REGION 11 MTN AREA/OTH SYS NONEMERG A0120 LKLP CAC LKLP CAC TRNSPRT: 3 INC INC MINI-BUS REGION 11 REGION 11 MTN AREA/OTH SYS ECG 91488 YOVANY PEDROZA ROUTINE 2 [facility] ECG INC INC W/LEAST 12 LDS TRCG ONLY W/O I&R RADIOLOGI 83574 YOVANY PEDROZA C 2 [facility] EXAMINATI INC INC ON CHEST SINGLE VIEW FRONTAL ECG 25869 LISETTE KNOX ROUTINE 2 MAXIM MAXIM ECG W/LEAST 12 LDS I&[place] [address] [facility] CORTEZBRITTNEY HEAD/BRAI 2 MEDICAL ABDIRAHMAN N W/[place] [address] [facility] CORTEZBRITTNEY MAXILLOFA 2 MEDICAL ABDIRAHMAN CIAL W/O IMAGING CONTRAST ASS MATERIAL OBSERVATI 05010 SWATHI ECHEVARRIA ON CARE 2 LYDIA LYDIA DISCHARGE MANAGEMEN T RADIOLOGI 06439 [facility] BRITTNEY C EXAM 2 MEDICAL ABDIRAHMAN CHEST 2 IMAGING VIEWS ASS FRONTAL&L ATERAL ECG 64978 LEYDI HOLLEY ROUTINE 2 EMERGENCY EMERGENCY ECG SERVICES SERVICES W/LEAST 12 LDS I&R ONLY ECG 02410 JR NORRIS JR ROUTINE 2 DWI DWI ECG W/LEAST 12 LDS I&R ONLY XTRNL ECG 86725 YOVANY PEDROZA & 48 HR 2 [facility] RECORDING INC INC EXTERNAL 68588 YOVANY PEDROZA ECG 2 [facility] SCANNING INC INC ANALYSIS REPORT XTRNL ECG 75803 ETIENNEKEMIE MCKEMIE 2 JR MAXIM JR MAXIM CONTINUOU S RHYTHM W/I&R UP TO 48 HRS RADIOLOGI 67016 YOVANY PEDROZA C 2 [facility] EXAMINATI INC INC ON CHEST SINGLE VIEW FRONTAL ECG 89428 TAWNY HECTOR ROUTINE 2 ANIRUDH ANIRUDH ECG W/LEAST 12 LDS I&R ONLY ECG 58949 YOVANY PEDROZA ROUTINE 2 [facility] ECG INC INC W/LEAST 12 LDS TRCG ONLY W/O I&R MYOCARDIA 30721 FALLUJI FALLUJI L SPECT 2 DENISE DENISE MULTIPLE STUDIES MYOCARDIA 41316 YOVANY PEDROZA L SPECT 2 [facility] MULTIPLE INC INC STUDIES NONEMERG A0120 LKLP LKLP TRNSPRT: 2 COMMUNITY COMMUNITY MINI-BUS ACTION ACTION MTN AREA/OTH SYS CV STRS 34403 JR NORRIS JR TST 2 DWI DWI XERS&/OR RX CONT ECG I&R ONLY CV STRS 70658 JEROMY RENAE TST 2 XERS&/OR RX CONT ECG W/O I&R CV STRS 17812 YOVANY PEDROZA TST 2 [facility] XERS&/OR INC INC RX CONT ECG TRCG ONLY ECG 90370 AARONSON BESSON ROUTINE 2 LYDIA LYDIA ECG W/LEAST 12 LDS I&R ONLY ECG 61375 TAWNY TAWNY ROUTINE 2 ANIRUDH ANIRUDH ECG W/LEAST 12 LDS I&R ONLY NONEMERG A0120 LKLP LKLP TRNSPRT: 2 COMMUNITY COMMUNITY MINI-BUS ACTION ACTION MTN AREA/OTH SYS RADIOLOGI 83693 [place] BRITTNEY C 2 MEDICAL ABDIRAHMAN EXAMINATI IMAGING ON CHEST ASS SINGLE VIEW FRONTAL ECG 95135 LISETTE KNOX ROUTINE 2 MAXIM MAXIM ECG W/LEAST 12 LDS I&R ONLY PARING/CU 95028 BRAUDIS BRAUDIS TTING 2 JAM JAM BENIGN HYPERKERA TOTIC LESION 2-4 TRIMMING 21469 BRAUDIS BRAUDIS NONDYSTRO 2 JAM JAM PHIC NAILS ANY NUMBER TRIMMING 15883 BRAUDIS BRAUDIS NONDYSTRO 2 JAM JAM PHIC NAILS ANY NUMBER PARING/CU 36607 BRAUDIS BRAUDIS TTING 2 JAM JAM BENIGN HYPERKERA TOTIC LESION 2-4 COMPREHEN 71451 YOVANY PEDROZA SIVE 1 [facility] METABOLIC INC INC PANEL BLOOD 73385 YOVANY PEDROZA COUNT 1 [facility] COMPLETE INC INC AUTO&AUTO DIFRNTL WBC CREATINE 73213 YOVANY PEDROZA KINASE MB 1 [facility] [place] [address] YOVANY PEDROZA TROPONIN 1 [facility] QUANTITAT INC INC SALONI CREATINE 75183 YOVANY PEDROZA KINASE 1 [facility] TOTAL INC INC RADIOLOGI 75435 [place] BRITTNEY C 1 MEDICAL ABDIRAHMAN EXAMINATI IMAGING ON CHEST ASS SINGLE VIEW FRONTAL ECG 60065 YOVANY PEDROZA ROUTINE 1 [facility] ECG INC INC W/LEAST 12 LDS TRCG ONLY W/O I&R ECG 62923 LEYDI CHRISTOPHER ROUTINE 1 EMERGENCY III MAXIM ECG SERVICES W/LEAST 12 LDS I&R ONLY URNLS DIP 35115 COMBINED COMBINED 1 PHYSICIAN PHYSICIAN STICK/TAB S LA S LA LET REAGENT AUTO MICROSCOP Y GROUND A0425 [facility] MILEAGE 1 AMBULANCE AMBULANCE PER SERVICE SERVICE STATUTE MILE BLOOD 17967 YOVANY PEDROZA COUNT 1 [facility] COMPLETE INC INC AUTO&AUTO DIFRNTL WBC COMPREHEN 90779 YOVANY PEDROZA SIVE 1 [facility] METABOLIC INC INC PANEL RADIOLOGI 09791 [facility] 1 MEDICAL ABDIRAHMAN EXAMINATI IMAGING ON CHEST ASS SINGLE VIEW FRONTAL AMB A0427 [facility] SERVICE 1 AMBULANCE AMBULANCE ALS SERVICE SERVICE EMERGENCY TRANSPORT LEVEL 1 PRESSURIZ 74135 YOVANY PEDROZA ED/NONPRE 1 [facility] SSURIZED [place] [address] YOVANY PEDROZA INFUSION 1 [facility] THERAPY/P INC INC ROPHYLAXI S /DX 1ST TO 1 HR THERAPEUT 48088 YOVANY PEDROZA IC 1 [facility] INJECTION INC INC IV PUSH EACH NEW DRUG NONEMERGE A0100 [place] [place] [facility] NCY 1 COMMUNITY TRANSPORT ACTION ATION; TAXI DEBRIDEME 13378 [facility] OPEN 1 Y Y WOUND 20 [facility] SQ CM/< DEBRIDEME 44727 [facility] OPEN 1 Y Y WOUND 20 [facility] SQ CM/< DEBRIDEME 26387 [facility] NT OPEN 1 FOOT FOOT WOUND 20 PROFESSIO PROFESSIO SQ CM/< NALS NALS NONEMERGE A0100 [place] [facility] NCY 1 COMMUNITY TRANSPORT ACTION ATION; TAXI RADEX 44253 [place] [facility] 1 MEDICAL COMPLETE SERV MINIMUM 3 FOUNDATIO VIEWS URNLS DIP 15697 COMBINED COMBINED 1 PHYSICIAN PHYSICIAN STICK/TAB S LA S LA LET REAGENT AUTO MICROSCOP Y NONEMERGE A0100 [place] [facility] NCY 0 COMMUNITY TRANSPORT ACTION ATION; TAXI URNLS DIP 37983 COMBINED COMBINED 0 PHYSICIAN PHYSICIAN STICK/TAB S LA S LA LET REAGENT AUTO MICROSCOP Y URNLS DIP 67241 COMBINED COMBINED 0 PHYSICIAN PHYSICIAN STICK/TAB S LA S LA LET REAGENT AUTO MICROSCOP Y CULTURE 95654 COMBINED COMBINED BACTERIAL 0 PHYSICIAN PHYSICIAN S LA S LA QUANTTATI VE COLONY COUNT URINE GROUND A0425 [facility] MILEAGE 0 AMBULANCE AMBULANCE PER SERVICE SERVICE STATUTE MILE AMBULANCE A0429 [facility] SERVICE 0 AMBULANCE AMBULANCE BLS SERVICE SERVICE EMERGENCY TRANSPORT ORTHOPANT 03046 THE [facility], OGRAM 0 IMPLANT & REIC R ORAL SURGERY [facility] ECG 28949 YOVANY PEDROZA ROUTINE 0 [facility] ECG INC INC W/LEAST 12 LDS TRCG ONLY W/O I&R ECG 97377 YOVANY NORRIS, ROUTINE 0 [facility] W/LEAST PROF SERV 12 LDS I&R ONLY ECG 22054 YOVANY NORRIS, ROUTINE 0 [facility] W/LEAST PROF SERV 12 LDS I&R ONLY ECG 47781 YOVANY PEDROZA ROUTINE 0 [facility] ECG INC INC W/LEAST 12 LDS TRCG ONLY W/O I&R CREATINE 59912 YOVANY PEDROZA KINASE 0 [facility] TOTAL INC INC AMBULANCE A0429 [facility] SERVICE 0 AMBULANCE AMBULANCE BLS SERVICE SERVICE EMERGENCY TRANSPORT GROUND A0425 [facility] MILEAGE 0 AMBULANCE AMBULANCE PER SERVICE SERVICE STATUTE MILE URNLS DIP 87028 YOVANY PEDROZA 0 [facility] STICK/TAB INC INC LET REAGENT AUTO MICROSCOP Y BASIC 98666 YOVANY PEDROZA METABOLIC 0 [facility] [place] [address] YOVANY PEDROZA TROPONIN 0 [facility] QUANTITAT INC INC SALONI BLOOD 36198 YOVANY PEDROZA COUNT 0 [facility] COMPLETE INC INC AUTO&AUTO DIFRNTL WBC CREATINE 26365 YOVANY PEDROZA KINASE MB 0 [facility] FRACTION INC INC ONLY CREATINE 61029 YOVANY PEDROZA KINASE MB 0 [facility] [place] [address] YOVANY PEDROZA AMYLASE 0 [facility] INC INC BLOOD 92982 YOVANY PEDROZA COUNT 0 [facility] COMPLETE INC INC AUTO&[place] [address] YOVANY PEDROZA TROPONIN 0 [facility] QUANTITAT INC INC SALONI COMPREHEN 31830 YOVANY PEDROZA SIVE 0 [facility] METABOLIC INC INC PANEL URNLS DIP 13792 YOVANY PEDROZA 0 [facility] STICK/TAB INC INC LET REAGENT AUTO MICROSCOP Y AMBULANCE A0429 [facility] SERVICE 0 AMBULANCE AMBULANCE BLS SERVICE SERVICE EMERGENCY TRANSPORT GROUND A0425 [facility] MILEAGE 0 AMBULANCE AMBULANCE PER SERVICE SERVICE STATUTE MILE CREATINE 03838 YOVANY PEDROZA KINASE 0 [facility] TOTAL INC INC ECG 83708 YOVANY MCKEMIE ROUTINE [address] [facility]ENCY ROOM W/LEAST PROF SERV 12 LDS I&[place] [address] YOVANY PEDROZA LIPASE 0 [facility] INC INC ECG 33026 YOVANY PEDROZA ROUTINE 0 [facility] ECG INC INC W/LEAST 12 LDS TRCG ONLY W/O I&R RADEX ABD 59880 [place] BRITTNEY, COMPL 0 MEDICAL HAYLEY AQT ABD IMAGING W/S/E/D ASSOCIATE VIEWS 1 S VIEW CH DEBRIDEME 61193 ASHA BARRY NT SKIN 0 AGNY ANGY PARTIAL THICKNESS 3D 84623 [place] OSIEL, RENDERING 0 MEDICAL GABRIELLA P W/INTERP IMAGING & [place] [address] [place] OSIEL, HEAD/BRAI 0 MEDICAL GABRIELLA P N W/O IMAGING CONTRAST ASSOCIATE MATERIAL S AMB A0427 [facility] SERVICE 0 AMBULANCE AMBULANCE ALS SERVICE SERVICE EMERGENCY TRANSPORT LEVEL 1 GROUND A0425 [facility] MILEAGE 0 AMBULANCE AMBULANCE PER SERVICE SERVICE STATUTE MILE BLOOD 20680 COMBINED COMBINED COUNT 0 PHYSICIAN PHYSICIAN COMPLETE S LAB S LAB AUTO&AUTO DIFRNTL WBC COLLECTIO 21727 COMBINED COMBINED N VENOUS 0 PHYSICIAN PHYSICIAN BLOOD S LAB S LAB VENIPUNCT URE TRAVEL [address] MED 0 PHYSICIAN PHYSICIAN NEC LAB S LAB S LAB SPEC; PRORATD TRIP CHRG DEBRIDEME 80325 ASHA BARRY NT SKIN 0 ANGY ANGY PARTIAL THICKNESS THERAPEUT 92529 YOVANY PEDROZA IC 0 [facility] INJECTION INC [place] [address] YOVANY PEDROZA INFUSION 0 [facility] THERAPY/P INC INC ROPHYLAXI S /DX 1ST TO 1 HR ECG 69808 YOVANY PEDROZA ROUTINE 0 [facility] ECG INC INC W/LEAST 12 LDS TRCG ONLY W/O I&R 3D 80868 [facility] CARTAGENA, RENDERING 0 MEDICAL GABRIELLA P W/INTERP IMAGING & ASSOCIATE POSTPROCE S SS SUPERVISI ON AMB A0427 [facility] SERVICE 0 AMBULANCE AMBULANCE ALS SERVICE SERVICE EMERGENCY TRANSPORT LEVEL 1 CREATINE 23459 YOVANY PEDROZA KINASE 0 [place] [address] [place] OSIEL, HEAD/BRAI 0 MEDICAL GABRIELLA P N W/O IMAGING CONTRAST ASSOCIATE MATERIAL S ECG 83112 LEYDI FUCHSEY, ROUTINE 0 EMERGENCY ALEX S ECG SERVICES W/LEAST 12 LDS ASSOCIATE I&R ONLY S CREATINE 26074 YOVANY PEDROZA KINASE MB 0 [facility] FRACTION INC INC ONLY BLOOD 35616 YOVANY PEDROZA COUNT 0 [facility] COMPLETE INC INC AUTO&[place] [address] YOVANY PEDROZA TROPONIN 0 [facility] QUANTITAT INC INC SALONI HEPATIC 15092 YOVANY PEDROZA FUNCTION 0 [facility] PANEL INC INC GROUND A0425 [facility] MILEAGE 0 AMBULANCE AMBULANCE PER SERVICE SERVICE STATUTE MILE BASIC 80327 YOVANY PEDROZA METABOLIC 0 [facility] PANEL INC INC CALCIUM TOTAL GROUND A0425 [facility]ANCE AMBULANCE PER SERVICE SERVICE STATUTE MILE AMBULANCE A0429 [facility] SERVICE 9 AMBULANCE AMBULANCE BLS SERVICE SERVICE EMERGENCY TRANSPORT DUP-SCAN 46012 YOVANY PEDROZA XTR VEINS 9 [facility]OSP INC INC UNILATERA L/LIMITED STUDY AMBULANCE A0429 JESSAMINE JESSAMINE SERVICE 9 CO CO BLS AMBULANCE AMBULANCE EMERGENCY TRANSPORT GROUND A0425 JESSAMINE JESSAMINE MILEAGE 9 CO CO PER AMBULANCE AMBULANCE STATUTE MILE ECG 76277 [facility], ROUTINE 9 RADHA DMITRIY G ECG EMERGENCY W/LEAST PHYS INC 12 LDS I&R ONLY ECG 88777 [facility] ROUTINE 9 [facility] ECG W/LEAST 12 LDS TRCG ONLY W/O I&R IIV3 09661 CRIS LYNCH, VACCINE 9 GABI Boateng SPLIT VIRUS 0.5 ML DOSAGE IM USE ADMINISTR G0008 CRIS LYNCH, ATION OF 9 GABI Boateng INFLUENZA VIRUS VACCINE 3D 69142 YOVANY PEDROZA RENDERING 9 [facility] INC INC W/INTERP& POSTPROC DIFF WORK STATION URNLS DIP 37732 YOVANY PEDROZA 9 [facility]OSP STICK/TAB INC INC LET REAGENT AUTO MICROSCOP Y BLOOD 82130 YOVANY PEDROZA COUNT 9 [facility] COMPLETE INC INC AUTO&AUTO DIFRNTL WBC GROUND A0425 [facility] MILEAGE 9 AMBULANCE AMBULANCE PER SERVICE SERVICE STATUTE MILE AMBULANCE A0429 [facility] SERVICE 9 AMBULANCE AMBULANCE BLS SERVICE SERVICE EMERGENCY TRANSPORT BASIC 98986 YOVANY EPDROZA METABOLIC 9 [facility] [address] [place] OSIEL, ABDOMEN 9 MEDICAL GABRIELLA P W/O IMAGING CONTRAST ASSOCIATE MATERIAL S CT PELVIS 25921 [facility], [facility]/O 9 MEDICAL GABRIELLA P CONTRAST IMAGING MATERIAL ASSOCIATE S SET-UP Q0092 PORTARAAlly PORTARAD PORTABLE 9 [facility] X-RAY EQUIPMENT RADIOLOGI 09884 ANGUS PORTERARAD C 9 [facility] EXAMINATI ON KNEE 3 VIEWS TRANS R0075 [facility] PRTBL 9 [employer] XRAY EQP&PERS GINETTE/NRS GINETTE-TRIP> 1 PT URNLS DIP 05463 COMBINED COMBINED 9 PHYSICIAN PHYSICIAN STICK/TAB S LAB S LAB LET REAGENT AUTO MICROSCOP Y DEBRIDEME 42823 FOLLMER, FOLLMER, NT SKIN 9 ANGY S ANGY S PARTIAL THICKNESS MRI LOWER 68843 BRITTNEYBRITTNEY, EXTREM 9 HAYLEY HAYLEY OTH/THN JT W/O & W/CONTR MATR CREATININ 06880 COMBINED COMBINED E BLOOD 9 PHYSICIAN PHYSICIAN S LAB S LAB COLLECTIO 70007 COMBINED COMBINED N VENOUS 9 PHYSICIAN PHYSICIAN BLOOD S [place] [address] COMBINED COMBINED UREA 9 PHYSICIAN PHYSICIAN NITROGEN S LAB S LAB QUANTITAT SALONI TRAVEL [address] MED 9 PHYSICIAN PHYSICIAN NEC LAB S LAB S LAB SPEC; PRORATD TRIP CHRG DEBRIDEME 31319 FOLLMER, FOLLMER, NT SKIN 9 ANGY S ANGY S PARTIAL THICKNESS DEBRIDEME 67759 FOLLMER, FOLLMER, NT SKIN 9 ANGY S ANGY S PARTIAL THICKNESS DEBRIDEME 64613 FOLLMER, FOLLMER, NT SKIN 9 ANGY S ANGY S PARTIAL THICKNESS RADIOLOGI 66890 BOBBI BARRYMER, C 9 ANGY S ANGY S EXAMINATI ON FOOT 2 VIEWS SBSQ 30106 CRIS LYNCH, NURSING 9 GABI Boateng FACIL CARE/DAY MINOR COMPLJ 15 MIN ORTHOPANT 87665 AL KARAN ESTRADA 8 FOR EDENILSON E ORAL&MAXI LLOFACIAL SURGERY IIV3 02819 CRIS LYNCH, VACCINE 8 GABI Boateng SPLIT VIRUS 0.5 ML DOSAGE IM USE ADMINISTR G0008 CRIS LYNCH, ATION OF 8 GABI Boateng INFLUENZA VIRUS VACCINE TRAVEL [address] MED 8 PHYSICIAN PHYSICIAN NEC LAB S LAB S LAB SPEC; PRORATD TRIP CHRG COLLECTIO 57549 COMBINED COMBINED N VENOUS 8 PHYSICIAN PHYSICIAN BLOOD S LAB S LAB VENIPUNCT URE BLOOD 99447 COMBINED COMBINED COUNT 8 PHYSICIAN PHYSICIAN COMPLETE S LAB S LAB AUTO&AUTO DIFRNTL WBC BASIC 33627 COMBINED COMBINED METABOLIC 8 PHYSICIAN PHYSICIAN PANEL S LAB S LAB CALCIUM TOTAL AMBULANCE A0429 [facility] SERVICE 8 AMBULANCE AMBULANCE BLS SERVICE SERVICE EMERGENCY TRANSPORT GROUND A0425 [facility] MILEAGE 8 AMBULANCE AMBULANCE PER SERVICE SERVICE STATUTE MILE RADEX 66156 YOVANY PEDROZA WRIST 8 [facility] COMPLETE INC INC MINIMUM 3 VIEWS SBSQ 93706 CRIS LYNCH, NURSING 8 GABI Boateng FACIL CARE/DAY MINOR COMPLJ 15 MIN SBSQ 29820 CRIS LYNCH, NURSING 8 GABI Boateng FACIL CARE/DAY MINOR COMPLJ 15 MIN Encounters Encounter Start End Date Code Location Performer Type Date EMERGENCY 28080 KENA STEPHENSON DEPT 7 7 PHYSICIAN U VISIT S, PLLC HIGH SEVERITY& THREAT [facility] EMERGENCY 40846 KENA JAMES DEPT 7 7 PHYSICIAN VISIT S, PLLC HIGH SEVERITY& THREAT [facility] EMERGENCY 35659 YOVANY 7 [address] [facility] T VISIT LOW/MODER SEVERITY HOSPITAL YOVANY - 7 7 [facility] OUTPATIEN [facility] T EMERGENCY 08554 KENA HECTOR DEPT 7 7 PHYSICIAN VISIT S, PLLC HIGH SEVERITY& THREAT [facility] HOSPITAL YOVANY - 7 7 [facility] OUTPATIEN [facility] T EMERGENCY 39533 YOVANY 7 [facility] T VISIT HIGH/URGE NT SEVERITY EMERGENCY 72456 KENA PARKER DEPT 7 7 PHYSICIAN VISIT S, PLLC HIGH SEVERITY& THREAT [facility] YOVANY - 7 7 [facility] T EMERGENCY 11833 YOVANY 7 7 [facility] T VISIT HIGH/URGE NT SEVERITY EMERGENCY 11206 [facility] DEPT 7 7 PHYSICIAN VISIT S, [facility] HIGH [facility]VERITY& THREAT [facility] YOVANY - 7 7 [facility] 7 PHYSICIAN U VISIT S, [facility] HIGH SEVERITY& THREAT [facility] YOVANY - 6 6 [facility] EMERGENCY 75818 [facility] DEPT 6 6 PHYSICIAN BRITTANEY VISIT S, [facility] HIGH [facility]VERITY& THREAT [facility] EMERGENCY 86026 YOVANY 6 6 [facility] VISIT MODERATE SEVERITY [facility]OSP[facility] YOVANY - 6 6 [facility] OFFICE 74675 [facility] 5 5 CLAUDINE BOWLES PHYSICIAN NEW/ESTAB S ASSIST PATIENT 60 MIN HOSPITAL YOVANY [facility] 5 5 [facility] OUTPATIEN [facility] YOVANY - 5 5 [facility]PAT[facility]EN [facility] YOVANY - 5 5 [facility] OUTPATIEN [facility] YOVANY - 4 4 [facility]PATIEN [facility] YOVANY - 3 3 [facility]PATIEN [facility] YOVANY - 2 2 [facility] OUTPATIEN [facility] YOVANY - 2 2 [facility]PATIEN [facility] YOVANY - 2 2 [facility]PATIEN [facility] YOVANY - 2 2 [facility] YOVANY - 1 1 [facility] EMERGENCY 71811 YOVANY 1 1 [facility] DEPARTMEN CRITICAL ACCESS HOSPITAL VISIT HIGH/URGE NT SEVERITY EMERGENCY 48278 LEYDI CHRISTOPHER DEPT 1 1 EMERGENCY III MAXIM VISIT SERVICES HIGH SEVERITY& THREAT FUN EMERGENCY 39754 YOVANY 1 1 [facility] DEPARTMEN INC T VISIT HIGH/URGE NT SEVERITY HOSPITAL YOVANY - 1 1 [facility] OUTPATIEN INC T EMERGENCY 83670 LEYDI CHRISTOPHER DEPT 1 1 EMERGENCY III MAXIM VISIT SERVICES HIGH SEVERITY& THREAT [facility] H[facility]PITAL UNIVERSIT - 1 1 Y [facility] UNIVERSIT - 1 1 Y [facility] T OFFICE 65675 [facility] 1 1 FOOT FOOT T NEW 30 PROFESSIO PROFESSIO MINUTES NALS NALS EMERGENCY 61184 LEYDI HECTOR, [address] [facility] SERVICES T VISIT HIGH/URGE ASSOCIATE NT S SEVERITY EMERGENCY 66009 [facility] 0 0 [facility] DEPARTMEN INC T VISIT LIMITED/M [facility]PITAL YOVANY - 0 0 [facility] OUTPATIEN INC T OFFICE 91784 [facility], OUTPATIEN 0 0 IMPLANT & ERIC R T NEW 20 ORAL [facility] SURGERY [facility] EMERGENCY 04058 LEYDI HECTOR, DEPT 0 0 EMERGENCY [facility] VISIT SERVICES HIGH SEVERITY& ASSOCIATE THREAT S [facility] YOVANY - 0 0 [facility] OUTPATIEN INC T EMERGENCY 16257 YOVANY 0 0 [facility] DEPARTMEN INC T VISIT HIGH/URGE NT SEVERITY EMERGENCY 69757 [facility] 0 0 [facility] DEPARTMEN INC T VISIT HIGH/URGE NT SEVERITY HOSPITAL Y[facility] - 0 0 [facility] OUTPATIEN INC T EMERGENCY 14902 LEYDI HECTOR, DEPT 0 0 EMERGENCY [facility] VISIT SERVICES HIGH SEVERITY& ASSOCIATE THREAT S [facility] EMERGENCY 17648 LEYDI CHRISTOPHER DEPT 0 0 EMERGENCY III, VISIT SERVICES LUISANA HIGH SEVERITY& ASSOCIATE THREAT S [facility] YOVANY - 0 0 [facility] OUTPATIEN INC T EMERGENCY 68688 YOVANY 0 0 [facility] T VISIT MODERATE SEVERITY EMERGENCY 86298 YOVANY 0 0 [facility] DEPARTMEN INC T VISIT HIGH/URGE NT SEVERITY EMERGENCY [id number] LEYDI HECTOR, DEPT 0 0 EMERGENCY ALEX S VISIT SERVICES HIGH SEVERITY& ASSOCIATE THREAT S [facility] Y[facility] - 0 0 [facility] OUTPATIEN INC T OFFICE [id number] ASHA [facility]ARRY OUTPATIEN 0 0 ANGY S ANGY S T VISIT 10 MINUTES HOSP[facility] - 9 9 [facility] OUTPATIEN INC T EMERGENCY [id number] YOVANY 9 9 [facility] T VISIT LOW/MODER SEVERITY [facility] - 9 9 [facility] OUTPATIEN EMERGENCY 43664 [facility] [place] 9 [facility] INC MODERATE SEVERITY EMERGENCY 20176 [facility] VISIT HIGH SEVERITY& THREAT [facility] YOVANY - 9 9 [facility] OUTPATIEN INC T EMERGENCY 09145 Y[facility] 9 9 [facility]IT HIGH/URGE NT SEVERITY EMERGENCY 56610 LEYDI HECTOR, KARINT 9 9 EMERGENCY ALEX S VISIT SERVICES HIGH SEVERITY& ASSOCIATE THREAT S [facility] OFFICE 23870 ASHA BARRY OUTPATIEN 9 9 ANGY S ANGY S T VISIT 10 MINUTES OFFICE 29008 ASHA BARRY OUTPATIEN 9 9 ANGY S ANGY S T VISIT 10 MINUTES OFFICE 74865 ASHA BARRY OUTPATIEN 9 9 ANGY Liz T NEW 30 MINUTES OFFICE 01883 [facility] JUSTIN HUNTER 8 8 FOR EDENILSON Chen NEW 10 ORAL&MAXI MINUTES [facility] SURGERY [facility] - 8 8 [facility] T EMERGENCY 47273 [facility] 8 8 [facility] T VISIT MODERATE SEVERITY
--- OUTSIDE RECORDS SUMMARY | 2017-08-20 17:56 | External Medical Summary Rpt | CCD ---
Demographics Preferred Language Macedonian Marital Status Unknown Latter-Day Affiliation Unknown Race Unknown Ethnic Group Unknown Author Author , RENAN WEBB Address Unknown Phone Immunization No patient found.
--- OUTSIDE RECORDS SUMMARY | 2017-08-20 17:56 | External Medical Summary Rpt ---
Author Author [employer], [employer] Organization [employer] Address Unknown Phone Unavailable Results CBC W Auto Differential panel in Blood Observa Value Referen Units Interpr Notes Date tion ce etation Range Basophils 0 - 0.2 K/MM3 Normal No Aug 12 inform2016 [#/volume on in ] in source Blood by data Automated count Basophils 0.1 - 2.0 % Normal No Aug 12 / informati 2016 leukocyte on in s in source Blood by data Automated count Eosinophi 0.0 - 0.4 K/mm3 Normal No Aug 12 ls ati 2016 [#/volume on in ] in source Blood by data Automated count Eosinophi 0.1 - % Normal No Aug 12 ls/100 12.0 inform2016 leukocyte on in s in source Blood by data Automated count Granulocy 1.8 - 7.8 K/mm3 Normal No Aug 12 torres 2016 [#/volume on in ] in source Blood by data Automated count Granulocy 37.0 - % Normal No Aug 12 torres/100 80.0 informati 2016 leukocyte on in s in source Blood by data Automated count Hematocri 37.0 - % Normal No Aug 12 t [Volume 47.0 informati 2016 on in Fraction] source of Blood data Hemoglobi 12.2 - g/dL Normal No Aug 12 n 16.2 informati 2016 [Mass/vol on in ume] in source Blood data Lymphocyt 0.7 - 4.5 K/mm3 Normal No Aug 12 es 2016 [#/volume on in ] in source Unspecifi data ed specimen by Automated count Lymphocyt 10 - 50.0 % Normal No Aug 12 es 2016 [#/volume on in ] in source Unspecifi data ed specimen by Automated count Erythrocy 27 - 31.2 pg Normal No Aug 12 te mean informati 2016 corpuscul on in ar source hemoglobi data n [Entitic mass] Erythrocy 31.8 - g/dl Normal No Aug 12 te mean 35.4 informati 2016 corpuscul on in ar source hemoglobi data n concentra tion [Mass/vol ume] by Automated count Erythrocy 82.2 - fl Normal No Aug 12 te mean 97.8 inform2016 corpuscul on in ar volume source [Entitic data volume] by Automated count Monocytes 0.1 - 1.0 K/mm3 Normal No Aug 12 inform2016 [#/volume on in ] in source Blood by data Automated count Monocytes 1.7 - 9.3 % Normal No Aug 12 /100 informati 2016 leukocyte on in s in source Blood by data Automated count Platelet 7.4 - fl Normal No Aug 12 mean 10.4 inform2016 volume on in [Entitic source volume] data in Blood by Automated count Platelets 142 - 424 K/mm3 Normal No Aug 12 inform2016 [#/volume on in ] in source Blood data Erythrocy 4.2 - 5.4 M/mm3 Low No Aug 12 torres informati 2016 [#/volume on in ] in source Amniotic data fluid Erythrocy 11.5 - % Normal No Aug 12 te 17.5 informati 2016 distribut on in ion width source [Entitic data volume] by Automated count Leukocyte 4.8 - K/MM3 Normal No Aug 12 s 10.8 informati 2016 [#/volume on in ] in source Blood data Natriutietic peptide B [Mass/volume] in Serum or Plasma Observa Value Referen Units Interpr Notes Date tion ce etation Range Natriutie 0 - 100 pg/mL Normal No Jun 28 tic 2016 5:00 peptide B on in PM source [Mass/vol data ume] in Serum or Plasma Comprehensive metabolic 2000 panel in Serum or Plasma Observa Value Referen Units Interpr Notes Date tion ce etation Range Albumin/G 1.1 - 1.8 No Normal No Jun 28 lobulin informati informati 2016 5:00 [Mass on in on in PM ratio] in source source Serum or data data Plasma Albumin 3.4 - 5.0 gm/dL Normal No Jun 28 [Mass/vol informati 2016 5:00 ume] in on in PM Serum or source Plasma data Alkaline 46 - 116 U/L High No Jun 28 phosphata informati 2016 5:00 se on in PM [Enzymati source c data activity/ volume] in Serum or Plasma Bilirubin 0.2 - 1.0 mg/dL Normal No Jun 28 .total informati 2017 5:00 [Mass/vol on in PM ume] in source Serum or data Plasma Urea 7 - 18 mg/dL Normal No Jun 28 nitrogen informati 2016 5:00 [Mass/vol on in PM ume] in source Serum or data Plasma Calcium 8.5 - mg/dL Normal No Jun 28 [Mass/vol 10.1 informati 2016 5:00 ume] in on in PM Serum or source Plasma data Chloride 98 - 107 mmoL/L Normal No Jun 28 [Moles/vo informati 2016 5:00 lume] in on in PM Serum or source Plasma data Carbon 21.0 - mmoL/L Normal No Jun 28 dioxide, 32.0 informati 2016 5:00 total on in PM [Moles/vo source lume] in data Serum or Plasma Creatinin 0.55 - mg/dL Normal No Jun 28 e 1.02 informati 2016 5:00 [Mass/vol on in PM ume] in source Serum or data Plasma Creatinin 50 - 200 ML/MIN Normal No Jun 28 e renal informati 2016 5:00 clearance on in PM source predicted data by Cockcroft -Gault formula Estimated 59- ML/MIN No REFERENCE Jun 28 informati RANGE: 2017 5:00 glomerula on in >60 PM r source ML/MIN/1. filtratio data 73 SQUARE n rate METERSIf (GF this patient is -A merican, then multiply theresult by 1.210. Globulin 1.3 - 3.2 gm/dL High No Jun 28 [Mass/vol informati 2016 5:00 ume] in on in PM Serum source data Glucose 74 - 106 mg/dL High No Jun 28 [Mass/vol informati 2016 5:00 ume] in on in PM Serum or source Plasma data Potassium 3.5 - 5.1 mmoL/L Normal No Jun 28 informati 2016 5:00 [Moles/vo on in PM lume] in source Serum or data Plasma Sodium 136 - 145 mmoL/L Normal No Jun 28 [Moles/vo informati 2016 5:00 lume] in on in PM Serum or source Plasma data Aspartate 15 - 37 U/L Normal No Jun 28 informati 2016 5:00 aminotran on in PM sferase source [Enzymati data c activity/ volume] in Serum or Plasma Alanine 12 - 78 U/L Normal No Jun 28 aminotran informati 2016 5:00 sferase on in PM [Enzymati source c data activity/ volume] in Serum or Plasma Protein 6.4 - 8.2 gm/dL Normal No Jun 28 [Mass/vol informati 2016 5:00 ume] in on in PM Serum or source Plasma data CBC W Auto Differential panel in Blood Observa Value Referen Units Interpr Notes Date tion ce etation Range Basophils 0 - 0.2 K/MM3 Normal No Jun 28 informati 2016 5:00 [#/volume on in PM ] in source Blood by data Automated count Basophils 0.1 - 2.0 % Normal No Jun 28 /100 informati 2016 5:00 leukocyte on in PM s in source Blood by data Automated count Eosinophi 0.0 - 0.4 K/mm3 Normal No Jun 28 ls informati 2016 5:00 [#/volume on in PM ] in source Blood by data Automated count Eosinophi 0.1 - % Normal No Jun 28 ls/100 12.0 informati 2016 5:00 leukocyte on in PM s in source Blood by data Automated count Granulocy 1.8 - 7.8 K/mm3 Normal No Jun 28 torres informati 2016 5:00 [#/volume on in PM ] in source Blood by data Automated count Granulocy 37.0 - % Normal No Jun 28 torres/100 80.0 informati 2016 5:00 leukocyte on in PM s in source Blood by data Automated count Hematocri 37.0 - % Low No Jun 28 t [Volume 47.0 2016 5:00 on in PM Fraction] source of Blood data Hemoglobi 12.2 - g/dL Low No Jun 28 n 16.2 informati 2016 5:00 [Mass/vol on in PM ume] in source Blood data Lymphocyt 0.7 - 4.5 K/mm3 Normal No Jun 28 es informati 2016 5:00 [#/volume on in PM ] in source Unspecifi data ed specimen by Automated count Lymphocyt 10 - 50.0 % Normal No Jun 28 es informati 2016 5:00 [#/volume on in PM ] in source Unspecifi data ed specimen by Automated count Erythrocy 27 - 31.2 pg Normal No Jun 28 te mean informati 2016 5:00 corpuscul on in PM ar source hemoglobi data n [Entitic mass] Erythrocy 31.8 - g/dl Normal No Jun 28 te mean 35.4 2016 5:00 corpuscul on in PM ar source hemoglobi data n concentra tion [Mass/vol ume] by Automated count Erythrocy 82.2 - fl Normal No Jun 28 te mean 97.8 2016 5:00 corpuscul on in PM ar volume source [Entitic data volume] by Automated count Monocytes 0.1 - 1.0 K/mm3 Normal No Jun 282016 5:00 [#/volume on in PM ] in source Blood by data Automated count Monocytes 1.7 - 9.3 % Normal No Jun 28 / inform2016 5:00 leukocyte on in PM s in source Blood by data Automated count Platelet 7.4 - fl Normal No Jun 28 mean 10.4 inform2016 5:00 volume on in PM [Entitic source volume] data in Blood by Automated count Platelets 142 - 424 K/mm3 Normal No Jun 282016 5:00 [#/volume on in PM ] in source Blood data Erythrocy 4.2 - 5.4 M/mm3 Low No Jun 28 torres informati 2016 5:00 [#/volume on in PM ] in source Amniotic data fluid Erythrocy 11.5 - % Normal No Jun 28 te 17.5 informati 2016 5:00 distribut on in PM ion width source [Entitic data volume] by Automated count Leukocyte 4.8 - K/MM3 Normal No Jun 28 s 10.8 2016 5:00 [#/volume on in PM ] in source Blood data Natriutietic peptide B [Mass/volume] in Serum or Plasma Observa Value Referen Units Interpr Notes Date tion ce etation Range Natriutie 0 - 100 pg/mL Normal No Jun 08 tic 2016 peptide B on in 10:45 PM source [Mass/vol data ume] in Serum or Plasma Fibrin D-dimer FEU [Mass/volume] in Platelet poor plasma Observa Value Referen Units Interpr Notes Date tion ce etation Range Fibrin 0 - 400 ng/mL Normal The Jun 08 D-dimer D-Dimer 2016 FEU values 10:45 PM [Mass/vol are ume] in presented Platelet in units poor of plasma mass(ng/m L) ofD-Dimer units(DDU ).This test has been FDA approved as an aid in the assessmen tand evaluatio n of suspected DIC, and thromboem bolic eventsinc luding PE and DVT. However, it does not have approvalf or cut-off values for the exclusion of these condition s. CBC W Auto Differential panel in Blood Observa Value Referen Units Interpr Notes Date tion ce etation Range Basophils 0 - 0.2 K/MM3 Normal No Jun 08 inform2016 [#/volume on in 10:45 PM ] in source Blood by data Automated count Basophils 0.1 - 2.0 % Normal No Jun 08 informati 2016 leukocyte on in 10:45 PM s in source Blood by data Automated count Eosinophi 0.0 - 0.4 K/mm3 Normal No Jun 08 ls informati 2016 [#/volume on in 10:45 PM ] in source Blood by data Automated count Eosinophi 0.1 - % Normal No Jun 08 ls/100 12.0 informati 2016 leukocyte on in 10:45 PM s in source Blood by data Automated count Granulocy 1.8 - 7.8 K/mm3 Normal No Jun 08 torres informati 2016 [#/volume on in 10:45 PM ] in source Blood by data Automated count Granulocy 37.0 - % Normal No Jun 08 torres/100 80.0 informati 2016 leukocyte on in 10:45 PM s in source Blood by data Automated count Hematocri 37.0 - % Low No Jun 08 t [Volume 47.0 informati 2016 on in 10:45 PM Fraction] source of Blood data Hemoglobi 12.2 - g/dL Low No Jun 08 n 16.2 informati 2016 [Mass/vol on in 10:45 PM ume] in source Blood data Lymphocyt 0.7 - 4.5 K/mm3 Normal No Jun 08 es informati 2016 [#/volume on in 10:45 PM ] in source Unspecifi data ed specimen by Automated count Lymphocyt 10 - 50.0 % Normal No Jun 08 es informati 2016 [#/volume on in 10:45 PM ] in source Unspecifi data ed specimen by Automated count Erythrocy 27 - 31.2 pg Normal No Jun 08 te mean informati 2016 corpuscul on in 10:45 PM ar source hemoglobi data n [Entitic mass] Erythrocy 31.8 - g/dl Normal No Jun 08 te mean 35.4 informati 2016 corpuscul on in 10:45 PM ar source hemoglobi data n concentra tion [Mass/vol ume] by Automated count Erythrocy 82.2 - fl Normal No Jun 08 te mean 97.8 2016 corpuscul on in 10:45 PM ar volume source [Entitic data volume] by Automated count Monocytes 0.1 - 1.0 K/mm3 Normal No Jun 082016 [#/volume on in 10:45 PM ] in source Blood by data Automated count Monocytes 1.7 - 9.3 % Normal No Jun 082016 leukocyte on in 10:45 PM s in source Blood by data Automated count Platelet 7.4 - fl Normal No Jun 08 mean 10.4 2016 volume on in 10:45 PM [Entitic source volume] data in Blood by Automated count Platelets 142 - 424 K/mm3 Normal No Jun 082016 [#/volume on in 10:45 PM ] in source Blood data Erythrocy 4.2 - 5.4 M/mm3 Low No Jun 08 torres 2016 [#/volume on in 10:45 PM ] in source Amniotic data fluid Erythrocy 11.5 - % Normal No Jun 08 te 17.5 2016 distribut on in 10:45 PM ion width source [Entitic data volume] by Automated count Leukocyte 4.8 - K/MM3 Normal No Jun 08 s 10.8 2016 [#/volume on in 10:45 PM ] in source Blood data CBC W Auto Differential panel in Blood Observa Value Referen Units Interpr Notes Date tion ce etation Range Basophils 0 - 0.2 K/MM3 Normal No Apr 262016 3:00 [#/volume on in PM ] in source Blood by data Automated count Basophils 0.1 - 2.0 % Normal No Apr 26 informati 2016 3:00 leukocyte on in PM s in source Blood by data Automated count Eosinophi 0.0 - 0.4 K/mm3 Normal No Apr 26 ls informati 2016 3:00 [#/volume on in PM ] in source Blood by data Automated count Eosinophi 0.1 - % Normal No Apr 26 ls/100 12.0 inform2016 3:00 leukocyte on in PM s in source Blood by data Automated count Granulocy 1.8 - 7.8 K/mm3 Normal No Apr 26 torres inform2016 3:00 [#/volume on in PM ] in source Blood by data Automated count Granulocy 37.0 - % Normal No Apr 18 torres/100 80.0 informati 2016 3:00 leukocyte on in PM s in source Blood by data Automated count Hematocri 37.0 - % Low No Apr 18 t [Volume 47.0 informati 2016 3:00 on in PM Fraction] source of Blood data Hemoglobi 12.2 - g/dL Low No Apr 18 n 16.2 informati 2016 3:00 [Mass/vol on in PM ume] in source Blood data Lymphocyt 0.7 - 4.5 K/mm3 Normal No Apr 18 es informati 2016 3:00 [#/volume on in PM ] in source Unspecifi data ed specimen by Automated count Lymphocyt 10 - 50.0 % Normal No Apr 26 es informati 2016 3:00 [#/volume on in PM ] in source Unspecifi data ed specimen by Automated count Erythrocy 27 - 31.2 pg Normal No Apr 18 te mean informati 2016 3:00 corpuscul on in PM ar source hemoglobi data n [Entitic mass] Erythrocy 31.8 - g/dl Normal No Apr 18 te mean 35.4 informati 2016 3:00 corpuscul on in PM ar source hemoglobi data n concentra tion [Mass/vol ume] by Automated count Erythrocy 82.2 - fl Normal No Apr 18 te mean 97.8 informati 2016 3:00 corpuscul on in PM ar volume source [Entitic data volume] by Automated count Monocytes 0.1 - 1.0 K/mm3 Normal No Apr 18 informati 2016 3:00 [#/volume on in PM ] in source Blood by data Automated count Monocytes 1.7 - 9.3 % Normal No Srini 18 /100 informati 2017 3:00 leukocyte on in PM s in source Blood by data Automated count Platelet 7.4 - fl Normal No Apr 18 mean 10.4 informati 2016 3:00 volume on in PM [Entitic source volume] data in Blood by Automated count Platelets 142 - 424 K/mm3 Normal No Apr 18 informati 2016 3:00 [#/volume on in PM ] in source Blood data Erythrocy 4.2 - 5.4 M/mm3 Low No Apr 18 torres informati 2016 3:00 [#/volume on in PM ] in source Amniotic data fluid Erythrocy 11.5 - % Normal No Srini 18 te 17.5 informati 2016 3:00 distribut on in PM ion width source [Entitic data volume] by Automated count Leukocyte 4.8 - K/MM3 Normal No Apr 26 s 10.8 informati 2016 3:00 [#/volume on in PM ] in source Blood data CBC W Auto Differential panel in Blood Observa Value Referen Units Interpr Notes Date tion ce etation Range Basophils 0 - 0.2 K/MM3 Normal No April 08 informati 2016 8:15 [...] Normal No April 08 ls/100 12.0 informati 2016 8:15 leukocyte on in PM [...] Blood data Hemoglobi 12.2 - g/dL Low April 08 n 16.2 informati 2016 8:15 [Mass/vol on in PM ume] in source Blood data Lymphocyt 0.7 - 4.5 K/mm3 Normal No April 08 es informati 2016 8:15 [#/volume on in PM ] in source Unspecifi data ed specimen by Automated count Lymphocyt 10 - 50.0 % Normal April 08 es informati 2016 8:15 [#/volume [...] - 9.3 % Normal No April 08 / informati 2016 8:15 leukocyte on in PM [...] M/mm3 Low No April 08 torres informati 2016 8:15 [#/volume on in PM ] in source Amniotic data fluid Erythrocy 11.5 - % Normal No April 08 te 17.5 informati 2016 8:15 distribut on in PM ion width source [Entitic data volume] by Automated count Leukocyte 4.8 - K/MM3 Normal No April 08 s 10.8 informati 2016 8:15 [#/volume on in PM ] in source Blood data
--- OUTSIDE RECORDS SUMMARY | 2017-08-20 17:56 | External Medical Summary Rpt | CCD ---
Demographics Preferred Language Somali Marital Status Unknown Amish Affiliation Unknown Race Unknown Ethnic Group Unknown Author Author , RENAN WEBB Address Unknown Phone Immunization No patient found.
== END 2017-08-12 21:47 | disposition home or self-care (01) ==
LOC: ER 19:58
PROVIDERS: Emergency Medicine
DX: K29.70 Gastritis, unspecified, without bleeding (principal); K21.9 Gastro-esophageal reflux disease without esophagitis; I10 Essential (primary) hypertension; F17.210 Nicotine dependence, cigarettes, uncomplicated

== ENCOUNTER 2017-08-23 19:06 | Emergency (ER) | payer MEDICARE, MEDICAID ==
[~2017-08-23] VITALS: Ht 177.8 cm; Wt 81.6 kg
[~2017-08-23 19:06] MED LIST changes: +AMOXICOT500 MG PO; +LACTULOSE10 GM/15 M PO; +LIPITOR10 MG PO; +NITROGLYCERIN0.4 MG SL; +PREDNISONE 5MG.5 MG PO; +PROAIR HFA0.09 MG/AC IH; +SIMETHICONE PO; +TYLENOL ES500 MG PO
--- NOTE | 2017-08-23 19:19 | Emergency Room Report ---
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 STAFF AT [facility] 3 NITRO. AND B/P DROPPED. 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 N Clinical Suspician of Infection? N Mental Status: 1 - Regular (Normal Baseline) Sepsis Risk:Low Sepsis Risk Have you (or family members/close friends) recently traveled outside the [place]? N If Yes, where/when: Have you had exposure to infectious disease within the past month? N TB? Other? Specify: Comment The patient is an inconsistent historian. She says that staff at [facility] gave her her medications and she got sick. She describes nausea, but no vomiting. She says she then developed pain in her chest which she locates his the lower sternal midline. She initially told me that it did not hurt with breathing, but then later said that it did. She says that she also has some pain with swallowing sometimes. She says that she has some shortness of breath and RIGHT facial pain. She denies cough to me, but told the nurse that she has a cough, and is noted to be coughing in the emergency department. ALLERGIES Coded Allergies: No Known Allergies (04/26/17) Home Medications Active Scripts Amoxicillin (Amoxicillin 500MG) 500 MG PO TID #30 CAP Prov: 06/28/17 Prednisone (Prednisone 5MG) 5 MG PO DIRECTED #39 TAB Prov: 06/28/17 Pantoprazole Sodium (Protonix 40MG TAB) 40 MG PO DAILY #30 TAB Prov: 08/12/17 Pantoprazole Sodium (Protonix 40MG TAB) 40 MG PO DAILY #30 TAB Ref 6 Prov: 09/02/15 ASPIRIN (Aspirin EC) 325 MG PO DAILY #30 Prov: 06/26/12 Reported Medications BENZTROPINE MESYLATE (COGENTIN 1MG TAB) 1 TAB PO BID Buspirone Hcl 10 TAB PO BID Nitroglycerin (Nitrostat 0.4MG (1/150 Gr) Tabs #25) 0.4 MG SL [id number] Baclofen (Baclofen 20MG) 1 TAB PO BID LOPERAMIDE HCL (Loperamide) 2 MG PO Q8HP DEXTROMETHORPHAN-GG (Guaifenesin Dm Syrup) 10 ML PO Q6HP CITALOPRAM HYDROBROMIDE (Citalopram HBr) 20 mg PO DAILY Lorazepam (Lorazepam 1MG) 1 MG PO TID Gabapentin (Gabapentin 100MG) 100 MG PO TID Allopurinol 100 MG PO BID Prochlorperazine Maleate 10 MG PO Q6HP PRN UNKNOWN Potassium Chloride (Klor-Con M20) 20 MEQ PO TID TRIAMTERENE/HYDROCHLOROTHIAZID (Triamterene-Hctz 75-50 MG Tab) 1 TAB PO DAILY Loratadine (Claritin 10MG) 10 MG PO DAILY Olanzapine (Zyprexa) 5 MG PO BID Acetaminophen (Tylenol XS 500MG) 1,000 MG PO Q6HP PRN PAIN Simethicone 30 ML PO Q 4 HOURS PRN INDIGESTION Lactulose (Lactulose) 1 DOSE PO DAILY NITROGLYCERIN (Nitrostat) 0.4 MG SL [id number] PRN CHEST PAIN Albuterol Sulfate (Proair Hfa) 1 PUFF IH Q4 HOURS PRN SOB Atorvastatin Calcium (Lipitor 10MG) 10 MG PO QHS History Medical History General CAD? No Angina: No PR: No Hypertension? Yes Hyperlipidemia? No CHF? No DVT? No PE? No COPD? No Asthma? No Anemia? No GERD? Yes Gastric ulcers? No GI Bleed? No Hernia? No Thyroid Problems? No Hypothyroidism? No CVA? No Seizures? No Diabetes? No Insulin Dependent: No Insulin Pump: No Home FSBS? No Renal Insuffiency? No End Stage Renal Disease? No UTI? No Stones? No BPH? No GB Disease: Yes Nephritic Syndrome? No Asplenia? No Hepatitis? No Sickle Cell Disease? No Arthritis? Yes Migraines? No Cataracts? No Glaucoma? No MRSA? No HIV? No TB? No Anxiety? No Depression? No Cancer? No More? 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 She has been seen here for chest pain multiple times with negative workups. In addition a cardiac workup, she has had workup for pulmonary embolism. On 01/08/17, she had a negative CT angiogram, but this did show a fluid-filled distal esophagus. Same findings were present on 08/19/16. D-dimer appears to be chronically elevated. Review of Systems All Other Systems Reviewed and Negative Constitutional denies fever Respiratory shortness of breath Cardiovascular chest pain Gastrointestinal nausea, denies vomiting Physical Exam Vital Signs Vital Signs Date Time Temp Pulse Resp B/P Pulse O2 O2 Flow FiO2 Ox Delivery Rate 08/23 1953 71 18 124/76 95 08/23 1908 97.8 77 18 146/84 95 General Appearance no apparent distress Eye Exam - bilateral eye normal exam, bilateral eye PERRL, bilateral eye EOMI Ear, Nose, Throat hearing grossly normal, normal ENT inspection Neck normal inspection, non-tender, supple, full range of motion Respiratory Status Yes: trachea midline, chest symmetrical, tender on palpation (lower sternal), non productive cough. No: respiratory distress. Lung Sounds bilateral: normal breath sounds, lungs clear. Cardiovascular normal exam, regular rate/rhythm, no peripheral edema, no gallop, no JVD, no murmur, no rub, normal peripheral pulses Peripheral Pulses Pulses normal Yes Gastrointestinal normal bowel sounds, normal exam, non tender, soft, no organomegaly, epigastric tenderness Extremities no pedal edema, anterior RIGHT lower leg tenderness without edema. No calf tenderness. Neurologic alert, reticle printer II-XII nml as tested, normal exam, oriented x 3 Mental status normal mood/affect Skin intact, normal color, warm/dry Medical Decision Making LABS/Meds/Orders Pt receiving controlled substance in ED? No Results/Orders Laboratory Tests 08/23/171914: Creatine Kinase Pending, CK-MB (CK-2) Rel Index Pending, CK and CKMB Interp Pending, Troponin I Pending 08/23/171914: Sodium 141, Potassium 3.7, Chloride 105, Carbon Dioxide 27, BUN 17, Creatinine 0.8, Estimated Creat Clear 83, Estimated GFR (MDRD) 71, Glucose 89, Calcium 8.7, Total Bilirubin 0.3, AST 17, ALT 23, Alkaline Phosphatase 113, Total Protein 7.0 , Albumin 3.5, Globulin 3.5 H, Albumin/Globulin Ratio 1.0 L, WBC 6.7, RBC 4.10 L, Hgb 11.9 L, Hct 37.4, MCV 91.2, RDW 13.4, Plt Count 207, MPV 8.5, Gran % 52.7, Gran # 3.5, Lymphocytes % 35.7, Monocytes % 7.4, Eosinophils % 3.3, Basophils % 1.0, Lymphocytes # 2.4, Monocytes # 0.5, Eosinophils # 0.2, Basophils # 0.1, PUBS MCHC 31.9, MCH 29.1 Current Medication Orders Sig/Aleida Start time Last Medication Dose Route Stop Time Status Admin Aspirin 0 .STK-MED ONE 08/23 1918 DC .ROUTE Aspirin 324 MG ONCE ONE 08/23 1915 DC 08/23 PO 08/23 Sodium Chloride 10 ML PRN PRN 08/23 1915 AC IV 08/24 1914 Orders Procedure Date/time Status CARDIAC ENZYMES 08/23 1955 Active ELECTROCARDIOGRAM REQUEST 08/23 1915 Active CHEST-PORTABLE 08/23 1915 Active IV SALINE LOCK 08/23 1915 Active CBC WITH AUTO DIFF 08/23 1915 Complete CHEM 12 PROFILE 08/23 1915 Complete CM/EKG CM/EKG Comments EKG interpreted by Zeyad Rojo MD: Rhythm: sinus Rate: 78 [place]: LEFT Ectopy: none Conduction: normal ST Segment Changes: none T Wave Changes: none Q Waves: none No evidence of acute ischemia or injury Low voltage QRS Poor R-wave progression Baseline artifact present, but I consider the EKG adequate for accurate interpretation. XRAY/CT/US XRAY/CT/US XRAY chest Comment Chest x-ray interpreted by Zeyad Rojo M.D. No infiltrate, pneumothorax, pleural effusion, or wide mediastinum. Progress - 8:00 PM: Patient is feeling much better. Cardiac enzymes are pending. Workup thus far negative otherwise. Dr. Whitley is present in the emergency department, he knows the patient well as he is her primary care physician. He feels she can be discharged if cardiac enzymes are negative. He will follow-up the result of this test. The patient has previously been worked up for pulmonary embolism and it sounds the same as her symptoms today by review of charts, I do not feel this needs to be repeated. I feel likelihood of pulmonary embolism is low. Departure Departure Disposition DC Home or Self Care(routine) Clinical Impression Primary Impression: Chest pain Qualifiers: Chest pain type: precordial pain Qualified Code: R07.2 - Precordial pain Condition STABLE Patient Instructions DI for Atypical Chest Pain Additional Instructions Additional instructions for CHEST PAIN: See your physician as soon as possible for further evaluation. Return immediately if worsening chest pain, vomiting, shortness of breath, fever, coughing of blood. ED Critical Care Critical Care No at 2001
--- NOTE | 2017-08-23 19:19 | Emergency Room Report ---
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 STAFF AT [facility] 3 NITRO. AND B/P DROPPED. 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 N Clinical Suspician of Infection? N Mental Status: 1 - Regular (Normal Baseline) Sepsis Risk:Low Sepsis Risk Have you (or family members/close friends) recently traveled outside the [place]? N If Yes, where/when: Have you had exposure to infectious disease within the past month? N TB? Other? Specify: Comment The patient is an inconsistent historian. She says that staff at [facility] gave her her medications and she got sick. She describes nausea, but no vomiting. She says she then developed pain in her chest which she locates his the lower sternal midline. She initially told me that it did not hurt with breathing, but then later said that it did. She says that she also has some pain with swallowing sometimes. She says that she has some shortness of breath and RIGHT facial pain. She denies cough to me, but told the nurse that she has a cough, and is noted to be coughing in the emergency department. ALLERGIES Coded Allergies: No Known Allergies (04/26/17) Home Medications Active Scripts Amoxicillin (Amoxicillin 500MG) 500 MG PO TID #30 CAP Prov: 06/28/17 Prednisone (Prednisone 5MG) 5 MG PO DIRECTED #39 TAB Prov: 06/28/17 Pantoprazole Sodium (Protonix 40MG TAB) 40 MG PO DAILY #30 TAB Prov: 08/12/17 Pantoprazole Sodium (Protonix 40MG TAB) 40 MG PO DAILY #30 TAB Ref 6 Prov: 09/02/15 ASPIRIN (Aspirin EC) 325 MG PO DAILY #30 Prov: 06/26/12 Reported Medications BENZTROPINE MESYLATE (COGENTIN 1MG TAB) 1 TAB PO BID Buspirone Hcl 10 TAB PO BID Nitroglycerin (Nitrostat 0.4MG (1/150 Gr) Tabs #25) 0.4 MG SL [id number] Baclofen (Baclofen 20MG) 1 TAB PO BID LOPERAMIDE HCL (Loperamide) 2 MG PO Q8HP DEXTROMETHORPHAN-GG (Guaifenesin Dm Syrup) 10 ML PO Q6HP CITALOPRAM HYDROBROMIDE (Citalopram HBr) 20 mg PO DAILY Lorazepam (Lorazepam 1MG) 1 MG PO TID Gabapentin (Gabapentin 100MG) 100 MG PO TID Allopurinol 100 MG PO BID Prochlorperazine Maleate 10 MG PO Q6HP PRN UNKNOWN Potassium Chloride (Klor-Con M20) 20 MEQ PO TID TRIAMTERENE/HYDROCHLOROTHIAZID (Triamterene-Hctz 75-50 MG Tab) 1 TAB PO DAILY Loratadine (Claritin 10MG) 10 MG PO DAILY Olanzapine (Zyprexa) 5 MG PO BID Acetaminophen (Tylenol XS 500MG) 1,000 MG PO Q6HP PRN PAIN Simethicone 30 ML PO Q 4 HOURS PRN INDIGESTION Lactulose (Lactulose) 1 DOSE PO DAILY NITROGLYCERIN (Nitrostat) 0.4 MG SL [id number] PRN CHEST PAIN Albuterol Sulfate (Proair Hfa) 1 PUFF IH Q4 HOURS PRN SOB Atorvastatin Calcium (Lipitor 10MG) 10 MG PO QHS History Medical History General CAD? No Angina: No IA: No Hypertension? Yes Hyperlipidemia? No CHF? No DVT? No PE? No COPD? No Asthma? No Anemia? No GERD? Yes Gastric ulcers? No GI Bleed? No Hernia? No Thyroid Problems? No Hypothyroidism? No CVA? No Seizures? No Diabetes? No Insulin Dependent: No Insulin Pump: No Home FSBS? No Renal Insuffiency? No End Stage Renal Disease? No UTI? No Stones? No BPH? No GB Disease: Yes Nephritic Syndrome? No Asplenia? No Hepatitis? No Sickle Cell Disease? No Arthritis? Yes Migraines? No Cataracts? No Glaucoma? No MRSA? No HIV? No TB? No Anxiety? No Depression? No Cancer? No More? 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 She has been seen here for chest pain multiple times with negative workups. In addition a cardiac workup, she has had workup for pulmonary embolism. On 01/08/17, she had a negative CT angiogram, but this did show a fluid-filled distal esophagus. Same findings were present on 08/19/16. D-dimer appears to be chronically elevated. Review of Systems All Other Systems Reviewed and Negative Constitutional denies fever Respiratory shortness of breath Cardiovascular chest pain Gastrointestinal nausea, denies vomiting Physical Exam Vital Signs Vital Signs Date Time Temp Pulse Resp B/P Pulse O2 O2 Flow FiO2 Ox Delivery Rate 08/23 1953 71 18 124/76 95 08/23 1908 97.8 77 18 146/84 95 General Appearance no apparent distress Eye Exam - bilateral eye normal exam, bilateral eye PERRL, bilateral eye EOMI Ear, Nose, Throat hearing grossly normal, normal ENT inspection Neck normal inspection, non-tender, supple, full range of motion Respiratory Status Yes: trachea midline, chest symmetrical, tender on palpation (lower sternal), non productive cough. No: respiratory distress. Lung Sounds bilateral: normal breath sounds, lungs clear. Cardiovascular normal exam, regular rate/rhythm, no peripheral edema, no gallop, no JVD, no murmur, no rub, normal peripheral pulses Peripheral Pulses Pulses normal Yes Gastrointestinal normal bowel sounds, normal exam, non tender, soft, no organomegaly, epigastric tenderness Extremities no pedal edema, anterior RIGHT lower leg tenderness without edema. No calf tenderness. 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 No Results/Orders Laboratory Tests 08/23/171914: Creatine Kinase Pending, CK-MB (CK-2) Rel Index Pending, CK and CKMB Interp Pending, Troponin I Pending 08/23/171914: Sodium 141, Potassium 3.7, Chloride 105, Carbon Dioxide 27, BUN 17, Creatinine 0.8, Estimated Creat Clear 83, Estimated GFR (MDRD) 71, Glucose 89, Calcium 8.7, Total Bilirubin 0.3, AST 17, ALT 23, Alkaline Phosphatase 113, Total Protein 7.0 , Albumin 3.5, Globulin 3.5 H, Albumin/Globulin Ratio 1.0 L, WBC 6.7, RBC 4.10 L, Hgb 11.9 L, Hct 37.4, MCV 91.2, RDW 13.4, Plt Count 207, MPV 8.5, Gran % 52.7, Gran # 3.5, Lymphocytes % 35.7, Monocytes % 7.4, Eosinophils % 3.3, Basophils % 1.0, Lymphocytes # 2.4, Monocytes # 0.5, Eosinophils # 0.2, Basophils # 0.1, PUBS MCHC 31.9, MCH 29.1 Current Medication Orders Sig/Aleida Start time Last Medication Dose Route Stop Time Status Admin Aspirin 0 .STK-MED ONE 08/23 1918 DC .ROUTE Aspirin 324 MG ONCE ONE 08/23 1915 DC 08/23 PO 08/23 Sodium Chloride 10 ML PRN PRN 08/23 1915 AC IV 08/24 1914 Orders Procedure Date/time Status CARDIAC ENZYMES 08/23 1955 Active ELECTROCARDIOGRAM REQUEST 08/23 1915 Active CHEST-PORTABLE 08/23 1915 Active IV SALINE LOCK 08/23 1915 Active CBC WITH AUTO DIFF 08/23 1915 Complete CHEM 12 PROFILE 08/23 1915 Complete CM/EKG CM/EKG Comments EKG interpreted by Zeyad Rojo MD: Rhythm: sinus Rate: 78 [place]: LEFT Ectopy: none Conduction: normal ST Segment Changes: none T Wave Changes: none Q Waves: none No evidence of acute ischemia or injury Low voltage QRS Poor R-wave progression Baseline artifact present, but I consider the EKG adequate for accurate interpretation. XRAY/CT/US XRAY/CT/US XRAY chest Comment Chest x-ray interpreted by Zeyad Rojo M.D. No infiltrate, pneumothorax, pleural effusion, or wide mediastinum. Progress - 8:00 PM: Patient is feeling much better. Cardiac enzymes are pending. Workup thus far negative otherwise. Dr. Whitley is present in the emergency department, he knows the patient well as he is her primary care physician. He feels she can be discharged if cardiac enzymes are negative. He will follow-up the result of this test. The patient has previously been worked up for pulmonary embolism and it sounds the same as her symptoms today by review of charts, I do not feel this needs to be repeated. I feel likelihood of pulmonary embolism is low. Departure Departure Disposition DC Home or Self Care(routine) Clinical Impression Primary Impression: Chest pain Qualifiers: Chest pain type: precordial pain Qualified Code: R07.2 - Precordial pain Condition STABLE Patient Instructions DI for Atypical Chest Pain Additional Instructions Additional instructions for CHEST PAIN: See your physician as soon as possible for further evaluation. Return immediately if worsening chest pain, vomiting, shortness of breath, fever, coughing of blood. ED Critical Care Critical Care No at 2001
[2017-08-23 19:34] LABS: HEMOGLOBIN 11.9 g/dL (12.2-16.2); LYMPH # 2.4 K/mm3 (0.7-4.5); LYMPH % 35.7 % (10-50.0)
--- OUTSIDE RECORDS SUMMARY | 2017-08-23 19:53 | External Medical Summary Rpt | CCD ---
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 Name Role Phone ALFARIS MOH, ALFARIS Unavailable Unavailable MOH GABI LYNCH W, Unavailable Unavailable GABI LYNCH BEINEKE ERUM, BEINEKE Unavailable Unavailable ERUM BESSON, BESSON Unavailable Unavailable BESSON LYDIA, BESSON Unavailable Unavailable LYDIA BESSON LYDIA, BESSON Unavailable Unavailable LYDIA BESSON, ADRIAN A, Unavailable Unavailable BESSON, ADRIAN A MURILLO, MURILLO Unavailable Unavailable MURILLO ALL, MURILLO ALL Unavailable Unavailable BRAUDIS JAM, BRAUDIS Unavailable Unavailable JAM BRAUDIS JAM, BRAUDIS Unavailable Unavailable JAM [facility] Unavailable Unavailable SERVICE, [facility] Unavailable Unavailable SERVICE, [facility], [facility] Unavailable Unavailable [facility] Unavailable Unavailable [...] ANIRUDH ALEX HECTOR, Unavailable Unavailable ALEX HECTOR [facility] Unavailable Unavailable INC, [facility] Unavailable Unavailable [facility]PITAL [facility], [facility], Unavailable Unavailable [facility] TERVIZO, DMITRIY G, Unavailable Unavailable TREVIZO, DMITRIY G JAMES, JAMES Unavailable Unavailable [facility] Unavailable Unavailable [facility], [facility] MANDY REGGIE, MANDY Unavailable Unavailable RE[facility] Unavailable Unavailable [facility], [facility] Unavailable Unavailable [facility], [facility] Unavailable Unavailable IMAGING [facility], [facility] Un[facility], [facility] JR JR DWI, JR Unavailable Unavailable JR DWI JR JR DWI, JR Unavailable Unavailable JR DWI JR, SHIRA E, Unavailable Unavailable JR, SHIRA E [facility] Unavailable Unavailable 11, [facility] 11 [facility] Unavailable Unavailable ACTION, [facility] Unavailable Unavailable SERVICES, [facility] HANY DANIEL MAXIM, Unavailable Unavailable MCKEMIChey DANIEL MAXIM HANY DANIEL MAXIM, Unavailable Unavailable HANY DANIEL MAXIM HANY DANIEL LUISANA Unavailable Unavailable F, LUISANA LEACH JR F [facility], Unavailable Unavailable [facility] Un[facility] [employer] GABRIELLA CARTAGENA, Unavailable Unavailable G[facility]RIE[facility], Unavailable Unavailable PLL[facility], [facility] PEEK, PEEK Unavailable Unavailable PETTEY JAM, PETTEY Unavailable Unavailable JAM PETTEY JAM, PETTEY Unavailable Unavailable JAM [facility], Unavailable Unavailable [facility] [employer] RASLAU FLA, RASLAU Unavailable Unavailable FLA RASLAU FLA, RASLAU Unavailable Unavailable FLA RENUSCH, RENUSCH Unavailable Unavailable RENUSCH BRITTANEY, RENUSCH Unavailable Unavailable BRITTANEY CHIQUITA LYDIA, CHIQUITA LYDIA Unavailable Unavailable CHIQUITA LYDIA, CHIQUITA LYDIA Unavailable Unavailable LISETTE MAXIM, LISETTE Unavailable Unavailable MAXIM SOTINGEANU, Unavailable Unavailable [facility] CASTILLO, Unavailable Unavailable CASTILLO [facility], Unavailable Unavailable [facility] Unavailable Unavailable [facility] Unavailable Unavailable ASSIST, [facility], Unavailable Unavailable [facility] WEHRMAN III MAXIM, Unavailable Unavailable WEHRMAN III MAXIM WEHRMAN III MAXIM, Unavailable Unavailable WEHRMAN III MAXIM WEHRAAN LAURA IIILUISANA, Unavailable Unavailable WERANDA IIILUISANA WISE JAM Unavailable Unavailable Purpose Continuity of Care Document - 12-15-2007 through 2016 Problems Code Diagnosis DOS Provider Status I10 ESSENTIAL 06-08-2017 [facility], HYPERTENSIO [facility] N R0789 OTHER CHEST 06-08-2017 [facility], PLL R079 CHEST PAIN 06-08-2017 [facility] UNSPECIFIED AMBULANCE SERVICE K219 GASTRO-ESOP 04-26-2017 [facility] DISEASE INC WITHOUT ESOPHAGITIS Z720 TOBACCO USE 04-26-2017 [facility] INC R918 OTHER 04-08-2017 [facility] NONSPECIFIC [facility]ICAL ABNORMAL IMAGING ASS FINDING OF LUNG FIELD [id number] OTHER LONG 04-08-2017 [facility] P DRUG THERAPY D649 ANEMIA 03-12-2017 [facility] UNSPECIFIED PHYSICIANS LA I498 OTHER 02-22-2017 [facility] SPECIFIED AMBULANCE CARDIAC SERVICE ARRHYTHMIAS J9811 ATELECTASIS 02-22-2017 [facility] I208 OTHER FORMS 01-21-2017 [facility] GROUP R0602 SHORTNESS 01-21-2017 [facility] BREATH [facility] GROUP R069 UNSPECIFIED 01-21-2017 [facility] ABNORMALITI GROUP ES OF BREATHING R251 TREMOR 01-17-2017 [facility] UNSPECIFIED [facility]YSICIANS, [facility] R4182 ALTERED 01-17-2017 [facility] MENTAL AMBULANCE STATUS SERVICE UNSPECIFIED I209 ANGINA 01-13-2017 [facility] PECTORIS [facility] UNSPECIFIED INC R0600 DYSPNEA 01-13-2017 [facility] UNSPECIFIED [facility] INC B75857 PAIN IN 07-23-2016 [facility]LE DIAGNOSTIC SE E876 HYPOKALEMIA 07-05-2016 [facility] K209 ESOPHAGITIS 07-05-2016 [facility] UNSPECIFIED INC K5900 CONSTIPATIO 07-05-2016 [facility] N PHYSICIANS, UNSPECIFIED [facility] N200 CALCULUS OF 07-05-2016 [facility] R1084 GENERALIZED 07-05-2016 [facility] ABDOMINAL [facility]ICAL PAIN IMAGING ASS R1110 VOMITING 07-05-2016 [facility] UNSPECIFIED [facility] IM[facility]ING ASS R112 NAUSEA WITH 07-05-2016 [facility] VOMITING [facility], UNSPECIFIED [facility] B351 TINEA 05-28-2016 BRAUDIS JAM UNGUIUM H23713 UNS 05-28-2016 BRAUDIS JAM ATHEROSCLER [facility] [place] ART EXTREM BILATERAL LEGS X95785 PAIN IN 05-28-2016 BRAUDIS JAM RIGHT TOES F61353 PAIN IN 05-28-2016 NO[facility] TIFFANIE LEFT TOES J189 PNEUMONIA 05-01-2016 [facility] UNSPECIFIED MEDICAL ORGANISM IMAGING ASS J984 OTHER 05-01-2016 [facility] DISORDERS MEDICAL OF LUNG IMAGING ASS K210 GASTRO-ESOP 05-01-2016 [facility] P DISEASE W/ ESOPHAGITIS R05 COUGH 05-01-2016 [facility] R1010 UPPER 05-01-2016 [facility] ABDOMINAL AMBULANCE PAIN SERVICE UNSPECIFIED R109 UNSPECIFIED 10-24-2015 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-2015 [facility] [place] [facility] NON-STEROID ASSIST AL&ANTI-INF LAMMATORIES J219 ACUTE 10-09-2015 [facility]ONCHIOLIT [facility] IS INC UNSPECIFIED J441 CHRONIC 10-09-2015 [facility] OBSTRUCTIVE [facility] PULMONARY INC DZ W/EXACERBAT ION E119 TYPE 2 08-22-2015 [facility] DIABETES MOBILE MELLITUS DIAGNOSTIC WITHOUT SE COMPLICATIO NS F47222 PAIN IN 08-22-2015 [facility] LEFT HIP [facility]ICAL IM[facility]ING ASS H28447 PAIN IN 08-22-2015 [facility] LEFT KNEE MEDICAL IM[facility]ING ASS Z90864 PAIN IN 08-22-2015 [facility] LEFT THIGH MEDICAL IM[facility]ING ASS J10504B UNSPECIFIED 08-22-2015 [facility] INJURY MOBILE LEFT HIP DIAGNOSTIC INITIAL SE ENCOUNTER L851 ACQ 08-21-2015 NO[facility]I MORENO KERATOSIS KERATODERMA PALMARIS ET PLANTARIS 77868 ABDOMINAL 05-30-2015 [facility] PAIN, MEDICAL EPIGASTRIC IMAGING ASS 56960 OTHER 05-21-2015 [facility] DYSPNEA AND MEDICAL [place]AGING [place] [address] CHEST PAIN 05-21-2015 [facility] UNSPECIFIED [facility]ICAL IMAGING ASS 47955 05-21-2015 [facility] TRANSPORTAT ION SER 5180 PULMONARY 05-07-2015 [facility] COLLAPSE [facility] ASS 4019 UNSPECIFIED 04-06-2015 [facility] P N 07081 DIVERTICULO 03-25-2015 [facility] SIS OF MEDICAL COLON IMAGING ASS 1101 DERMATOPHYT 11-27-2014 NOEMI MORENO OSIS OF NAIL 02396 ATHEROSCLER 11-27-2014 NOEMI MORENO OSIS [facility] [place] ART EXTREMITIES UNSPEC 7011 ACQUIRED 11-27-2014 NOEMI MORENO KERATODERMA 7295 PAIN IN 11-27-2014 KATHERINTANESHAAgusto MORENO SOFT TISSUES OF LIMB 7862 COUGH 08-16-2014 [facility] 34556 NONSPEC 08-09-2014 [facility] REACT MOBILE TUBERCULIN DIAGNOSTIC SKIN TEST SE W/O ACTIVE TB 515 POSTINFLAMM 06-05-2014 [facility] ATORY MEDICAL PULMONARY IMAGING ASS FIBROSIS 7851 PALPITATION 06-05-2014 [facility] S [facility] 496 CHRONIC 05-27-2014 [facility] AIRWAY MEDICAL OBSTRUCTION IMAGING ASS NEC 6101 DIFFUSE 05-03-2014 [facility]Y MASTOPATHY PHYS 76161 MASTODYNIA 05-03-2014 JR JR DWI 4928 OTHER 04-25-2014 [facility] EMPHYSEMA [facility] 7866 SWELLING, 04-25-2014 [facility], OR [facility] LUMP IN INC CHEST 11428 OTHER 04-25-2014 [facility] NONSPECIFIC MEDICAL ABNORMAL IMAGING ASS FINDING OF LUNG FIELD 2768 HYPOPOTASSE 04-05-2014 WEHRMAN III PEG MAXIM 16044 TRANSIENT 02-17-2014 [facility] FLA VISUAL LOSS 16312 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 98152 PSYCHOPHYSI 02-16-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 LYDIA MANSI VISUAL DISTURBANCE S 38942 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-16-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 LYDIA CEREBRAL ARTERY OCCLUSION W/INFARCT 39152 OSTEOARTHRO 09-02-2013 PETTEY JAM SIS UNSPEC WHETHER GEN/LOC LOWER LEG 24364 PAIN IN 09-02-2013 [facility]INT, [facility] LOWER LEG INC 4660 ACUTE 10-22-2012 JR JR BRONCHITIS DWI 490 BRONCHITIS 10-22-2012 LISETTE MAXIM NOT SPECIFIED ACUTE OR CHRONIC 7802 SYNCOPE AND 08-04-2012 [facility] COLLAPSE [facility] 36370 OTHER CHEST 08-03-2012 BESSON LYDIA PAIN 2749 GOUT, 06-25-2012 [facility] LYDIA UNSPECIFIED 85837 SHORTNESS 06-25-2012 BESSON LYDIA OF BREATH 4111 INTERMEDIAT 05-28-2012 LISETTE PAN E CORONARY SYNDROME 4139 OTHER AND 05-28-2012 [facility] DANIEL UNSPECIFIED MAXIM ANGINA PECTORIS 28591 OTHER 05-28-2012 [facility] DISEASES OF MEDICAL LUNG NOT IMAGING ASS ELSEWHERE CLASSIFIED 5990 URINARY 03-12-2011 [facility] TRACT [facility] INFECTION LA SITE NOT SPECIFIED 47892 OTHER 03-12-2011 [facility] ABNORMAL PHYSICIANS GLUCOSE LA 9597 INJURY 03-12-2011 [facility] OTHER&UNSPE PHYSICIANS CIFIED KNEE LA LEG ANKLE&FOOT 5589 OTH&UNSPEC 02-05-2011 [facility] NONINFECTIO [facility] US INC GASTROENTER ITIS&COLITI S 04542 OTHER 02-05-2011 [facility] MALAISE AND AMBULANCE FATIGUE SERVICE 28870 NAUSEA WITH 02-05-2011 [facility] 92844 DIARRHEA 02-05-2011 [facility] V5869 LONG-TERM 02-05-2011 [facility] (CURRENT) [facility] USE OF INC OTHER MEDICATIONS 700 CORNS AND 01-27-2011 [facility] 8930 OPEN WOUND 01-06-2011 [facility] MENTION COMPLICATIO N 7350 HALLUX 12-16-2010 [place] [facility] F[facility] 7354 OTHER 12-16-2010 [facility] HAMMER TOE FOOT PROFESSIONA LS 8931 OPEN WOUND 12-16-2010 [facility] [place] [address] HEAD 04-03-2010 [facility] INJURY, AMBULANCE UNSPECIFIED SERVICE 920 CONTUSION 04-02-2010 [facility] OF FACE EMERGENCY SCALP AND SERVICES NECK EXCEPT [facility] EYE E8889 UNSPECIFIED 04-02-2010 [facility] FALL [facility] SERVICES [facility] 5210 DENTAL 03-04-2010 [facility] [employer] 7245 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-15-2010 [facility] BACKACHE AMBULANCE SERVICE 31994 ABDOMINAL 01-31-2010 [facility] PAIN, MEDICAL UNSPECIFIED IMAGING SITE ASSOCIATES 49663 ABDOMINAL 01-31-2010 [facility] PAIN, AMBULANCE GENERALIZED SERVICE 69950 ULCER OF 01-30-2010 [facility] OTHER PART OF FOOT 07307 UNSPECIFIED 01-26-2010 [facility] PERIPHERAL EM[facility]GENCY [facility]ERTIGO SERVICES [facility]ATES 7804 DIZZINESS 01-26-2010 [place] [facility] 7840 HEADACHE 01-26-2010 [facility] AMBULANCE SERVICE 4619 ACUTE 12-02-2009 [facility] SINUSITIS, [facility] PROF SERV 15577 POISONING 09-21-2009 [facility] N EMERGENCY AND RELATED PHYS INC NARCOTICS OTHER V0481 NEED 09-17-2009 BREND[facility] LYNCH VACCINATION &INOCULATIO N FLU 58987 HEMATURIA 07-27-2009 [facility] UNSPECIFIED AMBULANCE SERVICE 47861 ABDOMINAL 07-27-2009 [facility] PAIN OTHER EMERGENCY SPECIFIED SERVICES SITE ASSOCIATES 92735 PAIN IN 04-19-2009 BRITTNEY, JOINT, [facility] ANKLE AND FOOT 6829 CELLULITIS 02-23-2009 CRIS, AND ABSCESS GABI W OF UNSPECIFIED SITE 5253 RETAINED 10-18-2008 [facility] OFACIAL [facility] 10279 PAIN IN 07-15-2008 [facility] JOINT, AMBULANCE FOREARM SERVICE 21261 SPRAIN AND 07-15-2008 [facility] STRAIN OF MEDICAL UNSPECIFIED IMAGING SITE OF ASSOCIATES WRIST E8497 PLACE OF 07-15-2008 [facility] MEDICAL RESIDENTIAL IMAGING ASSOCIATES INSTITUTION E927 OVEREXERTIO 07-15-2008 [facility] N&STRENUOUS MEDICAL &REPETITIVE IMAGING ASSOCIATES MVMNTS/LOAD S 67863 OSTEOARTHRO 06-23-2008 CRIS S INVLV MX GABI W SITES BUT NOT SPEC GEN Medications Na ND Rx Da Fi Fi Am Da Di Ph RX Ph St me C No te ll ll ou ys ag ar # ys at rm s nt no ma ic us Or Da si cy ia de te s n re d GA 65 09 10 42 14 00 ME Ac BA 86 -1 -1 .0 00 D ti PE 20 8- 3- 00 14 CA ve NT 19 20 20 96 RE IN 80 17 17 83 1 78 PH 10 AR 0 MA MG CY CA PS UL E NC 00 09 10 10 5 00 ME Ac ED 05 -1 -1 .0 00 D ti NI 40 8- 3- 00 14 CA ve SO 01 20 20 97 RE NE 72 17 17 07 5 60 PH 10 AR MA MG CY TA BL ET PA 00 09 10 30 30 00 ME Ac NT 09 -2 -1 .0 00 D ti OP 30 3- 3- 00 15 CA ve RA 01 20 20 00 RE ZO 29 17 17 84 LE 8 15 PH AR SO MA D CY DR 40 MG TA B 00 09 10 30 30 00 ME Ac PI 53 -1 -1 .0 00 D ti RI 61 8- 3- 00 14 CA ve N 00 20 20 95 RE EC 44 17 17 93 1 05 PH 81 AR MA MG CY TA BL ET LO 69 09 10 42 14 00 [...] MG CY TA BL ET PA 00 08 09 30 30 00 ME Ac NT 09 -2 -1 .0 00 D ti OP 30 5- 5- 00 14 CA ve RA 01 20 20 82 RE ZO 29 17 17 69 LE 8 04 PH AR SO MA D CY DR 40 MG TA B 00 08 09 30 30 00 ME [...] CY CA PS UL E PO 62 08 09 90 30 00 ME Ac TA 03 -2 -1 .0 00 D ti SS 70 3- 5- 00 14 CA ve IU 99 20 20 71 RE M 91 17 17 52 CL 0 88 PH AR ER MA CY 20 ME Q TA BL ET BU 00 08 09 [...] MA TA CY BL ET CI 13 08 09 30 30 00 ME Ac TA 66 -0 -0 .0 00 D ti LO 80 7- 1- 00 14 CA ve NC 01 20 20 72 RE AM 00 [...] MG CY TA BL ET LO 00 07 08 [...] CY MG TA BL ET AT 60 07 08 30 30 00 ME Ac OR 50 -2 -1 .0 00 D ti VA 52 7- 8- [address] 57 20 20 66 RE AT 80 17 17 04 IN 9 89 PH AR 10 MA CY MG TA BL ET GA 65 07 08 [...] MG CY TA BL ET BA 00 07 08 60 30 00 ME Ac CL 17 -2 -1 .0 00 D ti OF 24 1- 8- 00 14 CA ve EN 09 20 20 62 RE 78 17 17 69 20 0 48 PH AR MG MA CY TA BL ET NC 59 07 08 28 7 00 ME [...] 30 2- 4- 00 14 CA ve PR 31 20 20 58 RE DE 10 17 17 26 2 1 94 PH AR MG MA CY CA PS UL E CI 13 07 07 30 30 00 [...] MG CY TA BL ET LO 00 07 07 42 14 00 [...] MA 1 CY MG TA BL ET PO 62 07 07 90 30 00 ME Ac TA 03 -0 -2 .0 00 D ti SS 70 7- 8- 00 14 CA ve IU 99 20 20 53 RE M 90 17 17 76 CL 1 60 PH AR ER MA CY 20 ME Q TA BL ET LO 00 07 07 [...] D CY DR 40 MG TA B GA 65 07 07 42 14 00 ME Ac BA 86 -0 -2 .0 00 D ti PE 20 3- 8- 00 14 CA ve NT 19 20 20 51 RE IN 80 17 17 86 1 68 PH 10 AR 0 MA MG CY CA PS UL E AL 00 07 07 60 30 00 ME Ac LO 37 -0 -2 .0 00 D ti PU 80 6- 8- 00 14 CA ve RI 13 20 20 53 RE NO 70 17 17 35 L 1 21 PH 10 AR 0 MA MG CY TA BL ET TR 00 07 07 30 30 00 ME Ac IA 78 -0 -2 .0 00 D ti MT 11 6- 8- 00 14 CA ve ER 00 20 20 53 RE EN 80 17 17 35 E- 5 23 PH HC AR TZ MA CY 75 -5 0 MG TA B 00 06 07 30 30 00 ME [...] CY CA PS UL E PA 00 06 07 30 30 00 [...] MA 1 CY MG TA BL ET RO 00 06 07 [...] -5 0 MG TA B LO 00 06 07 42 14 00 [...] -0 .0 00 D ti LO 80 8 7- 00 14 CA ve NC 01 20 20 35 RE AM 00 17 17 89 5 57 PH HB AR R MA 20 CY MG TA BL ET OL 60 06 07 30 30 00 ME Ac AN 50 -0 -0 .0 00 D ti ZA 53 8 7- 00 14 CA ve PI 11 [...] CY 20 ME Q TA BL ET AT 60 05 06 [...] MA TA CY BL ET OL 60 05 06 30 [...] AR MA TA CY BL ET LO 00 05 06 30 [...] D CY DR 40 MG TA B BE 00 05 06 60 30 00 ME Ac NZ 83 -0 -0 .0 00 D ti TR 21 8- 2- 00 14 CA ve OP 08 20 20 15 RE IN 10 17 17 68 E 0 33 PH ME AR S MA 1 CY MG TA BL ET 00 05 [...] AR MA TA CY BL ET LO 00 04 05 30 [...] MG CY TA BL ET BA 00 03 05 60 [...] MA 20 CY MG TA BL ET BU 00 04 05 [...] MA TA CY BL ET TR 00 04 05 30 [...] D CY DR 40 MG TA B BE 00 03 05 60 30 00 [...] MA TA CY BL ET AL 00 03 04 60 [...] CY 75 -5 0 MG TA B CI 65 03 04 30 30 00 [...] CY 20 ME Q TA BL ET CE 68 03 04 40 10 00 ME Ac PH 18 -1 -0 .0 00 D ti AL 00 3- 7- 00 13 CA ve EX 12 20 20 88 RE IN 20 17 17 50 2 04 PH 50 AR 0 MA MG CY CA PS UL E OL 60 03 03 30 30 00 [...] PH AR TA MA BL CY ET AL 00 02 03 60 30 [...] MA 20 CY MG TA BL ET TR 00 02 03 30 [...] MA TA CY BL ET BE 00 02 02 60 [...] MA CY TA BL LL ET C LO 00 01 02 42 14 00 [...] CY MG LL C TA BL ET AL 00 01 02 60 30 00 [...] ML LL C SO JARON TI ON PO 62 01 02 90 30 00 [...] 40 C MG TA B TR 00 01 02 30 30 00 ME Ac IA [...] LL PS C UL E LO 00 01 01 30 30 00 ME Ac RA 78 -0 -2 .0 00 D ti TA 15 3- 7- 00 13 CA ve DI 07 20 20 54 RE NE 70 17 17 48 1 92 PH 10 AR MA MG CY TA LL BL C ET OL 60 01 01 30 30 00 ME Ac AN [...] C TA BL ET TR 00 12 30 30 00 ME Ac IA 78 -1 -0 .0 00 D ti MT 11 6- 9- 00 13 CA ve ER 00 20 20 45 RE EN 80 16 17 37 E- 5 49 PH HC AR TZ MA CY 75 -5 LL 0 C MG TA B PA 00 12 30 30 00 ME Ac NT 09 [...] CY BL ET LL C 00 12 01 30 30 00 ME [...] 10 C % CR EA M 00 05 07 02 20 3 ME 27 No Ac 18 -1 -1 .0 D 63 t ti 28 5- 7- 00 CA 90 Av ve 44 20 20 RE 8 ai 78 08 08 la 9 PH bl AR e MA CY LL C 00 07 07 00 30 30 ME [...] S 0.5 ML DOSA GE IM USE Results Labs Lab Lab Date Result Refere Interp Status Commen Order Detail nces retati t Range on CBC w auto diff (08-23-2017 19:15) Automat = 0.1 0-0.2 complet ed 017 K/MM3 ed blood 19:15 basophi l count (count/ vo Baso % = 1.0 % 0.1-2.0 complet 017 ed 19:15 Automat = 0.2 0.0-0.4 complet ed 017 K/mm3 ed blood 19:15 eosinop hil count Automat = 3.3 % 0.1-12. complet ed 017 0 ed blood 19:15 eosinop hils/10 0 leukocy t Blood = 3.5 1.8-7.8 complet granulo 017 K/mm3 ed cytes 19:15 automat ed count (numb Granulo = 52.7 37.0-80 complet cyte 017 % .0 ed percent 19:15 age Blood = 37.4 37.0-47 complet hematoc 017 % .0 ed rit 19:15 (volume fractio n) Blood = 11.9 12.2-16 complet hemoglo 017 g/dL .2 ed bin 19:15 measure ment (mass/v olum Absolut = 2.4 0.7-4.5 complet e 017 K/mm3 ed lymphoc 19:15 yte count Lymphoc = 35.7 10-50.0 complet yte 017 % ed count, 19:15 blood, automat ed Mean 08-23-2 = 29.1 27-31.2 complet corpusc 017 pg ed ular 19:15 hemoglo bin (MCH) determ Automat 08-23-2 = 31.9 31.8-35 complet ed 017 g/dl .4 ed erythro 19:15 cyte mean corpusc ular h Automat 08-23-2 = 91.2 82.2-97 complet ed 017 fl .8 ed erythro 19:15 cyte mean corpusc ular v Absolut 08-23-2 = 0.5 0.1-1.0 complet e 017 K/mm3 ed monocyt 19:15 e count [place] % 08-23-2 = 7.4 % 1.7-9.3 complet 017 ed 19:15 Automat 08-23-2 = 8.5 7.4-10. complet ed 017 fl 4 ed blood 19:15 platele t mean volume oziel Blood = 207 142-424 complet platele 017 K/mm3 ed t count 19:15 Red 08-23-2 = 4.10 4.2-5.4 complet blood 017 M/mm3 ed cell 19:15 count Automat 08-23-2 = 13.4 11.5-17 complet ed 017 % .5 ed erythro 19:15 cyte distrib ution width Blood 08-23-2 = 6.7 4.8-10. complet leukocy 017 K/MM3 8 ed torres 19:15 count (number /volume ) Procedures Procedure DOS Code Location Performer Comment ECG 14120 [facility] ROUTINE 7 PHYSICIAN U ECG S, PLLC W/LEAST 12 LDS I&R ONLY PATIENT G9744 [facility] NOT 7 PHYSICIAN U ELIGIBLE S, PLLC D/T ACTIVE DX HYPERTENS ION AMB A0427 [facility] SERVICE 7 AMBULANCE AMBULANCE ALS SERVICE SERVICE EMERGENCY TRANSPORT LEVEL [address] [facility] MILEAGE 7 AMBULANCE AMBULANCE [place] [address] [facility] TROPONIN 7 [facility] QUANTITAT INC INC SALONI BLOOD 04245 [facility] COUNT 7 [facility] COMPLETE INC INC AUTO&AUTO DIFRNTL WBC ECG 52255 [facility] ROUTINE 7 [facility] ECG INC INC W/LEAST 12 LDS TRCG ONLY W/O I&R COLLECTIO 09820 [facility] N VENOUS 7 [facility] BLOOD INC INC VENIPUNCT URE PATIENT G9744 [facility] NOT 7 PHYSICIAN ELIGIBLE S, PLLC D/T ACTIVE DX HYPERTENS ION COMPREHEN 89239 [facility] SIVE 7 [facility] METABOLIC INC INC PANEL ECG 86106 [facility] ROUTINE 7 PHYSICIAN ECG S, PLLC W/LEAST 12 LDS I&R ONLY RADIOLOGI 08600 [facility] C 7 [facility] EXAMINATI INC INC ON CHEST [place]ING[place] FRONTAL RADIOLOGI 74096 [facility] C 7 [facility] EXAMINATI INC INC ON CHEST SING[place] FRONTAL COMPREHEN 57572 [facility] SIVE 7 [facility] METABOLIC INC INC PANEL ECG 15482 [facility] HECTOR ROUTINE 7 PHYSICIAN ECG S, PLLC W/LEAST 12 LDS I&R ONLY CREATINE 93266 [facility] KINASE MB 7 [facility] FRACTION INC INC ONLY ECG 79191 [facility] ROUTINE 7 [facility] ECG INC INC W/LEAST 12 LDS TRCG ONLY W/O I&[place] [address] [facility] TROPONIN 7 [facility] QUANTITAT INC INC SALONI BLOOD 60528 [facility] COUNT 7 [facility] COMPLETE INC INC AUTO&AUTO DIFRNTL WBC GROUND A0425 [facility] MILEAGE 7 AMBULANCE AMBULANCE PER SERVICE SERVICE STATUTE MILE AMB A0427 [facility] SERVICE 7 AMBULANCE AMBULANCE ALS SERVICE SERVICE EMERGENCY TRANSPORT LEVEL 1 CREATINE 53715 [facility] KINASE 7 [facility] TOTAL INC INC TRAVEL [address] MED 7 PHYSICIAN PHYSICIAN NEC LAB S LA S LA SPEC; PRORATD TRIP CHRG BASIC 19214 [facility] COMBINED METABOLIC 7 PHYSICIAN PHYSICIAN PANEL S LA S LA CALCIUM TOTAL COLLECTIO 05514 COMBIN[facility] COMBINED N VENOUS 7 PHYSICIAN PHYSICIAN B[place] [address] [facility]NY PEDROZA TROPONIN 7 [facility] [place] [id number] YOVANY PEDROZA TROPONIN 7 [facility] QUANTITAT INC INC SALONI BLOOD [id number] YOVANY PEDROZA COUNT 7 [facility] COMPLETE INC INC AUTO&[place] [address] YOVANY PEDROZA AMYLASE 7 [facility] INC INC ECG 49050 YOVANY PEDROZA ROUTINE 7 [facility] ECG INC INC W/LEAST 12 LDS TRCG ONLY W/O I&R CREATINE [id number] YOVANY MARIANO KINASE MB 7 [facility] FRACTION INC ONLY AMB A0427 [facility] 7 AMBULANCE AMBULANCE ALS SERVICE SERVICE EMERGENCY TRANSPORT LEVEL 1 RADIOLOGI 18570 [facility] C EXAM 7 MEDICAL MEDICAL CHEST 2 IMAGING IMAGING VIEWS ASS ASS FRONTAL&L ATERAL GROUND A0425 [facility] 7 AMBULANCE AMBULANCE PER SERVICE SERVICE STATUTE MILE ECG 73562 YOVANY ECHEVARRIA ROUTINE 7 [facility] W/LEAST P 12 LDS I&R ONLY COMPREHEN 62903 YOVANY LAST SIVE 7 [facility] METABOLIC INC PANEL RADIOLOGI 92053 [facility] C 7 PHYSICIAN EXAMINATI S, PLLC ON CHEST SINGLE VIEW FRONTAL CREATINE 98913 YOVANY RODDY KINASE 7 [place] [address] YOVANY PEDROZA LIPASE 7 [facility] INC INC MYOCARDIA 02299 [facility] SRIVASTAV L SPECT 7 PHYSICIAN A MULTIPLE S GROUP STUDIES CV STRS 73543 [facility] COOK TST 7 PHYSICIAN XERS&/OR S GROUP RX CONT ECG W/O I&R GROUND A0425 [facility] 7 AMBULANCE AMBULANCE PER SERVICE SERVICE STATUTE MILE ECG 64325 [facility] ROUTINE 7 PHYSICIAN ECG S, PLLC W/LEAST 12 LDS I&R ONLY AMB A07 [facility] 7 AMBULANCE AMBULANCE ALS SERVICE SERVICE EMERGENCY TRANSPORT LEVEL 1 ECG 07591 YOVANY YOVANY ROUTINE 7 [facility] ECG INC INC W/LEAST 12 LDS TRCG ONLY W/O I&R GROUND [facility]0425 [facility] PER SERVICE SERVICE STATUTE MILE AMB A0427 [facility] SERVICE 7 AMBULANCE AMBULANCE ALS SERVICE SERVICE EMERGENCY TRANSPORT LEVEL 1 ECG 79795 YOVANY ECHEVARRIA ROUTINE 7 [facility] W/LEAST P 12 LDS I&R ONLY RADIOLOGI 90601 [place] MURILLO 7 MEDICAL EXAMINATI IMAGING ON CHEST ASS SINGLE VIEW FRONTAL CT THORAX 19892 [facility] 7 MEDICAL W/CONTRAS IMAGING T ASS MATERIAL BASIC 32522 COMBINED COMBINED METABOLIC 7 PHYSICIAN PHYSICIAN PANEL S LA S LA CALCIUM TOTAL COLLECTIO 00445 COMBINED COMBINED N VENOUS 7 PHYSICIAN PHYSICIAN BLOOD S LA S LA VENIPUNCT URE TRAVEL [address] MED 7 PHYSICIAN PHYSICIAN NEC LAB S LA S LA SPEC; PRORATD TRIP CHRG TRAVEL [address] MED 6 PHYSICIAN PHYSICIAN NEC LAB S LA S LA SPEC; PRORATD TRIP CHRG COLLECTIO 88331 COMBINED COMBINED N VENOUS 6 PHYSICIAN PHYSICIAN BLOOD S LA S LA VENIPUNCT URE COMPREHEN 31164 COMBINED COMBINED SIVE 6 PHYSICIAN PHYSICIAN METABOLIC S LA S LA PANEL BLOOD 26782 COMBINED COMBINED COUNT 6 PHYSICIAN PHYSICIAN COMPLETE S LA S LA AUTO&AUTO DIFRNTL WBC BLOOD 85885 COMBINED COMBINED COUNT 6 PHYSICIAN PHYSICIAN COMPLETE S LA S LA AUTO&AUTO DIFRNTL WBC COMPREHEN 30014 COMBINED COMBINED SIVE 6 PHYSICIAN PHYSICIAN METABOLIC S LA S LA PANEL COLLECTIO 84049 COMBINED COMBINED N VENOUS 6 PHYSICIAN PHYSICIAN BLOOD S LA S LA VENIPUNCT URE TRAVEL [address] MED 6 PHYSICIAN PHYSICIAN NEC LAB S LA S LA SPEC; PRORATD TRIP CHRG ECG 98933 YOVANY NORRIS JR ROUTINE 6 [facility] W/LEAST P 12 LDS I&R ONLY CT THORAX 77761 [place] MURILL[place] ALL 6 MEDICAL W/CONTRAS IMAGING T ASS MATERIAL RADIOLOGI 00181 [facility] C 6 MEDICAL MEDICAL EXAMINATI IMAGING IMAGING ON CHEST ASS ASS SINGLE VIEW FRONTAL GROUND A0425 [facility]UL[facility] PER SERVICE SERVICE STATUTE MILE AMB A0427 [facility] 6 AMBULANCE AMBULANCE ALS SERVICE SERVICE EMERGENCY TRANSPORT LEVEL 1 TRANS R0070 [facility] PRTBL 6 MOBILE MOBILE X-RAY DIAGNOSTI DIAGNOSTI EQP&PERS C SE C SE GINETTE/NRS GINETTE-TRIP 1 PT RADEX 14376 [facility] FOOT 6 MOBILE MOBILE COMPLETE DIAGNOSTI DIAGNOSTI MINIMUM 3 C SE C SE VIEWS SET-UP Q0092 [facility] PORTABLE 6 MOBILE MOBILE X-RAY DIAGNOSTI DIAGNOSTI EQUIPMENT C SE C SE THERAPEUT 36198 YOVANY PEDROZA IC 6 [facility] INJECTION INC INC IV PUSH EACH NEW DRUG SUSCEPTIB 96092 YOVANY PEDROZA LTY STDY 6 [facility] ANTIMICRB INC INC IAL MICRO/AGA R DILUTJ URNLS DIP 69888 YOVANY PEDROZA 6 [facility] STICK/TAB INC INC LET REAGENT AUTO MICROSCOP Y CULTURE 32507 YOVANY PEDROZA BACTERIAL 6 [facility] INC INC QUANTTATI VE COLONY COUNT URINE CULTURE 46471 YOVANY PEDROZA BCT 6 [facility] ISOL&PRSM [place] [address] YOVAYN PEDROZA INFUSION 6 [facility] THER INC INC PROPH ADDL SEQUENTIA L TO 1 [place] [address] YOVANY PEDROZA INFUSION 6 [facility] THERAPY/P INC INC ROPHYLAXI S /DX 1ST TO 1 HR COMPREHEN 98218 YOVANY PEDROZA SIVE 6 [facility] METABOLIC INC INC PANEL PATIENT G8784 KENA ROSARIO 6 PHYSICIAN BRITTANEY Liz, [facility] U[facility]/EM SIT RADIOLOGI 19829 YOVANY Guzmán 6 [facility] EXAMINATI INC INC ON CHEST SINGLE VIEW FRONTAL ECG 98547 YOVANY NORRIS JR ROUTINE 6 [facility] W/LEAST P 12 LDS I&R ONLY GROUND A0425 [facility] 6 AMBULANCE AMBULANCE PER SERVICE SERVICE STATUTE MILE AMBULANCE A0429 [facility] SERVICE 6 AMBULANCE AMBULANCE BLS SERVICE SERVICE EMERGENCY TRANSPORT BLOOD 27606 YOVANY PEDROZA COUNT 6 [facility] COMPLETE INC INC AUTO&[place] [address] YOVANY PEDROZA TROPONIN 6 [facility] QUANTITAT INC INC SALONI 12-LEAD 3120F [facility] ECG 6 PHYSICIAN [place] PERFORMED [place], [place] [address] YOVANY PEDROZA ABDOMEN & 6 [facility] PELVIS INC INC W/O CONTRAST MATERIAL ECG 70622 YOVANY PEDROZA ROUTINE 6 [facility] ECG INC INC W/LEAST 12 LDS TRCG ONLY W/O I&[place] [address] YOVANY PEDROZA LIPASE 6 [facility] INC INC TRAVEL [address] MED 6 PHYSICIAN PHYSICIAN NEC LAB S LA S LA SPEC; PRORATD TRIP CHRG BASIC 28271 COMBINED COMBINED METABOLIC 6 PHYSICIAN PHYSICIAN PANEL S LA S LA CALCIUM TOTAL COLLECTIO 76344 COMBINED COMBINED N VENOUS 6 PHYSICIAN PHYSICIAN BLOOD S LA S LA VENIPUNCT URE DEBRIDEME 86635 NOEMI FRANKLIN NT NAIL 6 JAM JAM ANY METHOD 6/> PARING/CU 35915 NOEMI FRANKLIN TTING 6 JAM JAM BENIGN HYPERKERA TOTIC LESION 2-4 BLOOD 58748 YOVANY PEDROZA OCCULT 6 [facility] PEROXIDAS INC INC E ACTV QUAL FECES 1-3 SPEC GROUND A0425 [facility] 6 AMBULANCE AMBULANCE PER SERVICE SERVICE STATUTE MILE RADIOLOGI 28210 DOYLE LUGO C EXAM 6 MEDICAL ABDIRAHMAN CHEST 2 IMAGING VIEWS ASS FRONTAL&L ATERAL ECG 79328 YOVANY PEDROZA ROUTINE 6 [facility] ECG INC INC W/LEAST 12 LDS TRCG ONLY W/O I&[place] [address] YOVANY PEDROZA TROPONIN 6 [facility] QUANTITAT INC INC SALONI BLOOD 11536 YOVANY PEDROZA COUNT 6 [facility] COMPLETE INC INC AUTO&[place] [address] YOVANY PEDROZA AMYLASE 6 [facility] INC INC CREATINE 64888 YOVANY PEDROZA KINASE MB 6 [facility] FRACTION INC INC ONLY AMB A0427 [facility] SERVICE 6 AMBULANCE AMBULANCE ALS SERVICE SERVICE EMERGENCY TRANSPORT LEVEL 1 ECG 67216 YOVANY ECHEVARRIA ROUTINE 6 [facility] W/LEAST P 12 LDS I&R ONLY COMPREHEN 38438 YOVANY PEDROZA SIVE 6 [facility] METABOLIC INC INC PANEL CREATINE 64699 YOVANY PEDROZA KINASE 6 [facility] [place] [address] YOVANY PEDROZA LIPASE 6 [facility] INC INC TRAVEL [address] MED 6 PHYSICIAN PHYSICIAN NEC LAB S LA S LA SPEC; PRORATD TRIP CHRG BASIC 77565 COMBINED COMBINED METABOLIC 6 PHYSICIAN PHYSICIAN PANEL S LA S LA CALCIUM TOTAL COLLECTIO 01621 COMBINED COMBINED N VENOUS 6 PHYSICIAN PHYSICIAN BLOOD S LA S LA VENIPUNCT URE BLOOD 49200 COMBINED COMBINED COUNT 6 PHYSICIAN PHYSICIAN COMPLETE S LA S LA AUTO&AUTO DIFRNTL WBC TRIMMING 13726 NOEMI FRANKLIN NONDYSTRO 6 JAM JAM PHIC NAILS ANY NUMBER DEBRIDEME 88522 NOEMI PANDEYUDIS NT NAIL 6 JAM JAM ANY METHOD 1-5 PARING/CU 50672 BRAUDIS BRAUDIS TTING 6 JAM JAM BENIGN HYPERKERA TOTIC LESION 2-4 PARING/CU 88275 BRAUDIS BRAUDIS TTING 5 JAM JAM BENIGN HYPERKERA TOTIC LESION 2-4 DEBRIDEME 70618 SERGS KATHERINUDIS NT NAIL 5 JAM JAM ANY METHOD 6/> NONEMERG A0120 [facility] TRNSPRT: 5 MINI-BUS TRANSPORT TRANSPORT MTN ATION SER ATION SER AREA/OTH SYS RADIOLOGI 72384 [facility] 5 MEDICAL ERUM CHEST 2 IMAGING VIEWS ASS FRONTAL&L ATERAL RADEX HIP 67893 [facility] 5 MEDICAL ABDIRAHMAN UNILATERA IMAGING L ASS COMPLETE MINIMUM 2 VIEWS RADIOLOGI 35924 [facility] C 5 MOBILE MOBILE EXAMINATI DIAGNOSTI DIAGNOSTI ON FEMUR C SE C SE 2 VIEWS RADIOLOGI 55345 [facility] 5 MEDICAL ABDIRAHMAN EXAMINATI IMAGING ON KNEE ASS 1/[address] PELVIS 91968 [place] UMRILLO ALL W/O 5 MEDICAL CONTRAST IMAGING MATERIAL ASS DEBRIDEME 86111 BRAUDIS BRAUDIS NT NAIL 5 JAM JAM ANY METHOD 1-5 PARING/CU 22720 BRAUDIS BRAUDIS TTING 5 JAM JAM BENIGN HYPERKER[place] T[place]IC LESION 2-4 [place] [address] [place] MURILLO ALL ABDOMEN & 5 MEDICAL PELVIS IMAGING W/O ASS CONTRAST MATERIAL NONEMERG A0120 [facility] FEDERATED TRNSPRT: 5 MINI-BUS TRANSPORT TRANSPORT MTN [facility]/OTH SYS CV STRS 23881 [facility] TST 5 PHYSICIAN XERS&/OR S GROUP RX CONT ECG W/O I&R CV STRS 98819 YOVANY NORRIS TST 5 [facility] XERS&/OR HOSPITAL RX CONT P ECG I&R ONLY MYOCARDIA 55871 YOVANY Borrego SPECT 5 [facility] MULTIPLE INC INC STUDIES NONEMERG A0120 FEDERATED FEDERATED TRNSPRT: 5 MINI-BUS TRANSPORT TRANSPORT MTN [facility] SYS RADIOLOGI 26222 [place] AGA 5 MEDICAL ERUM EXAMINATI IMAGING ON CHEST ASS SINGLE VIEW FRONTAL RADIOLOGI 88347 [facility] 5 MEDICAL ABDIRAHMAN EXAMINATI IMAGING ON CHEST ASS SINGLE VIEW FRONTAL ECG 66142 YOVANY ECHEVARRIA ROUTINE 5 [facility] W/LEAST P 12 LDS I&R ONLY RADIOLOGI 73745 [place] AGA C 5 MEDICAL ERUM EXAMINATI IMAGING [place] [address] [facility] Y[facility]G ABDOMEN & 5 MEDICAL ERUM PELVIS IMAGING W/O ASS CONTRAST MATERIAL PARING/CU 63432 NOEMI FRANKLIN TTING 5 JAM JAM BENIGN HYPERKERA TOTIC LESION 2-4 RADIOLOGI 52028 [facility] ANN C EXAM 4 MEDICAL ERUM CHEST 2 IMAGING VIEWS ASS FRONTAL&L ATERAL RADIOLOGI 35453 [facility] C EXAM 4 MOBILE MOBILE CHEST 2 DIAGNOSTI DIAGNOSTI VIEWS C SE C SE FRONTAL&L ATERAL NONEMERG A0120 FEDER[facility] FEDERATED TRNSPRT: 4 TRANS MINI-BUS TRANSPORT SERVBLUEG [facility]/OTH SYS ECG 63400 ALFARIS ALFARIS ROUTINE 4 MOH MOH ECG W/LEAST 12 LDS I&R ONLY RADIOLOGI 20084 [facility] C 4 MEDICAL ERUM EXAMINATI IMAGING ON CHEST ASS SINGLE VIEW FRONTAL RADIOLOGI 82129 [place] BRITTNEY C 4 MEDICAL ABDIRAHMAN EXAMINATI IMAGING ON CHEST ASS SINGLE VIEW FRONTAL NONEMERG A0120 FEDERATED FEDERATED TRNSPRT: 4 TRANS MINI-BUS TRANSPORT SERVBLUEG MTN [facility] SER ROEL AREA/OTH SYS RADIOLOGI 38209 [place] BRITTNEY C 4 MEDICAL ABDIRAHMAN EXAMINATI IMAGING ON CHEST ASS SINGLE VIEW FRONTAL ECG 44638 JR NORRIS JR ROUTINE 4 DWI DWI ECG W/LEAST 12 LDS I&R ONLY NONEMERG A0120 FEDERATED FEDERATED TRNSPRT: 4 TRANS MINI-BUS TRANSPORT SERVBLUEG [facility]OTH SYS CT THORAX 78791 YOVANY PEDROZA W/O 4 [facility] CONTRAST INC INC MATERIAL RADIOLOGI 98099 [facility] C 4 MEDICAL ABDIRAHMAN EXAMINATI IMAGING ON CHEST ASS SINGLE VIEW FRONTAL ECG 99815 ASHWIN CHRISTOPHER ROUTINE 4 III MAXIM III MAXIM ECG W/LEAST 12 LDS I&R ONLY NONEMERG A0120 FEDERATED FEDERATED TRNSPRT: 4 MINI-BUS TRANSPORT TRANSPORT MTN ATION SER ATION SER AREA/[place] [address] RASLAU RASLAU ANGIOGRAP 4 FLA FLA HY HEAD W/CONTRAS T/NONCONT RAST NONEMERG A0120 FEDERATED FEDERATED TRNSPRT: 4 MINI-BUS TRANSPORT TRANSPORT MTN ATION SER ATION SER AREA/[place] [address] RASLAU RASLAU ANGIOGRAP 4 FLA FLA HY NECK W/CONTRAS T/NONCONT RAST CRITICAL 85548 CHIQUITA LYDIA CHIQUITA LYDIA CARE 4 ILL/INJUR ED PATIENT INIT 30-74 MIN PARING/CU 24723 NOEMI ULRICHS TTING 4 JAM JAM BENIGN HYPERKERA TOTIC LESION 2-4 DEBRIDEME 79449 NOEMI ULRICHS NT NAIL 4 JAM JAM ANY METHOD 6/> RADIOLOGI 05560 YOVANY PEDROZA C EXAM 3 [facility] KNEE INC INC COMPLETE 4/MORE VIEWS INJ J0702 PETTEY PETTEY BETAMETHA 3 JAM JAM SONE ACETATE & PHOSPHATE 3 MG ARTHROCEN 74607 PETTEY PETTEY TESIS 3 JAM JAM ASPIR&/IN J MAJOR JT/BURSA W/O US NONEMERG A0120 LKLP CAC LKLP CAC TRNSPRT: 3 INC INC MINI-BUS REGION 11 REGION 11 MTN AREA/OTH SYS NONEMERG A0120 LKLP CAC LKLP CAC TRNSPRT: 3 INC INC MINI-BUS REGION 11 REGION 11 MTN AREA/OTH SYS ECG 32868 YOVANY PEDROZA ROUTINE 2 [facility] ECG INC INC W/LEAST 12 LDS TRCG ONLY W/O I&R RADIOLOGI 16236 BRITTNEY LUGO C 2 ABDIRAHMAN ABDIRAHMAN EXAMINATI ON CHEST SINGLE VIEW FRONTAL ECG 30080 JR NORRIS JR ROUTINE 2 DWI DWI ECG W/LEAST 12 LDS I&R ONLY OBSERVATI 10547 SWATHI ECHEVARRIA ON CARE 2 [place] [address] [facility] LUGO HEAD/BRAI 2 MEDICAL ABDIRAHMAN N W/[place] [address] [facility] BRITTNEY MAXILLOFA 2 MEDICAL ABDIRAHMAN CIAL W/O IMAGING CONTRAST ASS MATERIAL RADIOLOGI 48795 [facility] BRITTNEY C EXAM 2 MEDICAL ABDIRAHMAN CHEST 2 IMAGING VIEWS ASS FRONTAL&L ATERAL ECG 82428 LEYDI HOLLEY ROUTINE 2 EMERGENCY EMERGENCY ECG SERVICES SERVICES W/LEAST 12 LDS I&R ONLY ECG 07772 JR NORRIS JR ROUTINE 2 DWI DWI ECG W/LEAST 12 LDS I&R ONLY EXTERNAL 47140 YOVANY PEDROZA ECG 2 [facility] SCANNING INC INC ANALYSIS REPORT XTRNL ECG 63511 MCKEMIE MCKEMIE 2 JR MAXIM JR MAXIM CONTINUOU S RHYTHM W/I&R UP TO 48 HRS XTRNL ECG 96788 YOVANY PEDROZA & 48 HR 2 [facility] RECORDING INC INC ECG 22972 HANY NGMIE ROUTINE 2 JR MAXIM JR MAXIM ECG W/LEAST 12 LDS I&R ONLY RADIOLOGI 76616 YOVANY PEDROZA C 2 [facility] EXAMINATI INC INC ON CHEST SINGLE VIEW FRONTAL ECG 03701 YOVANY PEDROZA ROUTINE 2 [facility] ECG INC INC W/LEAST 12 LDS TRCG ONLY W/O I&R MYOCARDIA 96613 BILL KHAN L SPECT 2 DENISEBarber JOHNSONZ MULTIPLE STUDIES MYOCARDIA 21472 YOVANY PDEROZA L SPECT 2 [facility] MULTIPLE INC INC STUDIES CV STRS 77841 JR NORRIS JR TST 2 DWI DWI XERS&/OR RX CONT ECG I&R ONLY CV STRS 14498 YOVANY PEDROZA TST 2 [facility] XERS&/OR INC INC RX CONT ECG TRCG ONLY CV STRS 31427 JEROMY RENAE TST 2 XERS&/OR RX CONT ECG W/O I&R NONEMERG A0120 LKLP LKLP TRNSPRT: 2 [facility] MINI-BUS ACTION ACTION MTN AREA/OTH SYS ECG 08205 SWATHI ECHEVARRIA ROUTINE 2 LYDIA LYDIA ECG W/LEAST 12 LDS I&R ONLY ECG 64264 TAWNY FUCHSEY ROUTINE 2 ANIRUDH ANIRUDH ECG W/LEAST 12 LDS I&R ONLY NONEMERG A0120 LKLP LKLP TRNSPRT: 2 [facility] MINI-BUS ACTION ACTION MTN AREA/OTH SYS RADIOLOGI 41606 [facility] 2 MEDICAL ABDIRAHMAN EXAMINATI IMAGING ON CHEST ASS SINGLE VIEW FRONTAL ECG 39554 LISETTE KNOX ROUTINE 2 MAXIM MAXIM ECG W/LEAST 12 LDS I&R ONLY TRIMMING 96387 BRAUDIS BRAUDIS NONDYSTRO 2 JAM JAM PHIC NAILS ANY NUMBER PARING/CU 82122 BRAUDIS BRAUDIS TTING 2 JAM JAM BENIGN HYPERKERA TOTIC LESION 2-4 TRIMMING 83976 BRAUDIS BRAUDIS NONDYSTRO 2 JAM JAM PHIC NAILS ANY NUMBER PARING/CU 74673 BRAUDIS BRAUDIS TTING 2 JAM JAM BENIGN HYPERKERA TOTIC LESION 2-4 ECG 99752 LEYDI CHRISTOPHER ROUTINE 1 EMERGENCY III MAXIM ECG SERVICES W/LEAST 12 LDS I&R ONLY RADIOLOGI 11020 [facility] 1 MEDICAL ABDIRAHMAN EXAMINATI IMAGING ON CHEST ASS SINGLE VIEW FRONTAL COMPREHEN 56124 YOVANY PEDROZA SIVE 1 [facility] METABOLIC INC INC PANEL ECG 11985 YOVANY PEDROZA ROUTINE 1 [facility] ECG INC INC W/LEAST 12 LDS TRCG ONLY W/O I&R CREATINE 50221 YOVANY PEDROZA KINASE MB 1 [facility] FRACTION INC INC ONLY BLOOD 66304 YOVANY PEDROZA COUNT 1 [facility] COMPLETE INC INC AUTO&[place] [address] YOVANY PEDROZA TROPONIN 1 [facility] QUANTITAT INC INC SALONI CREATINE 20224 YOVANY PEDROZA KINASE 1 [facility] TOTAL INC INC URNLS DIP 50040 COMBINED COMBINED 1 PHYSICIAN PHYSICIAN STICK/TAB S LA S LA LET REAGENT AUTO MICROSCOP Y THERAPEUT 92132 YOVANY MCGRAWON IC 1 [facility] INJECTION INC INC IV PUSH EACH NEW DRUG GROUND A0425 [facility] AMBULANCE PER SERVICE SERVICE STATUTE MILE BLOOD 02282 YOVANY PEDROZA COUNT 1 [facility] COMPLETE INC INC AUTO&AUTO DIFRNTL WBC COMPREHEN 40212 YOVANY PEDROZA SIVE 1 [facility] METABOLIC INC INC PANEL RADIOLOGI 92860 YOVANY PEDROZA C 1 [facility] EXAMINATI INC INC ON CHEST SINGLE VIEW FRONTAL AMB A0427 [facility] SERVICE 1 AMBULANCE AMBULANCE ALS SERVICE SERVICE EMERGENCY TRANSPORT LEVEL 1 [place] [address] YOVANY PEDROZA INFUSION 1 [facility] THERAPY/P INC INC ROPHYLAXI S /DX 1ST TO 1 HR PRESSURIZ 88525 YOVANY PEDROZA ED/NONPRE 1 [facility] SSURIZED INC INC INHALATIO N TREATMENT NONEMERGE A0100 [facility] CAB NCY 1 COMMUNITY TRANSPORT ACTION ATION; TAXI DEBRIDEME 85478 [facility] OPEN 1 Y Y WOUND 20 [facility] SQ CM/< DEBRIDEME 15344 [facility] OPEN 1 Y Y WOUND 20 [facility] SQ CM/< DEBRIDEME 10254 [facility] OPEN 1 FOOT FOOT WOUND 20 PROFESSIO PROFESSIO SQ CM/< NALS NALS NONEMERGE A0100 [facility] CAB NCY 1 COMMUNITY TRANSPORT ACTION ATION; TAXI RADEX 13650 [place] [facility] JAM FOOT 1 MEDICAL COMPLETE SERV MINIMUM 3 FOUNDATIO VIEWS URNLS DIP 47946 COMBINED COMBINED 1 PHYSICIAN PHYSICIAN STICK/TAB S LA S LA LET REAGENT AUTO MICROSCOP Y NONEMERGE A0100 [facility] [place] CAB NCY 0 COMMUNITY TRANSPORT ACTION ATION; TAXI URNLS DIP 52508 COMBINED COMBINED 0 PHYSICIAN PHYSICIAN STICK/TAB S LA S LA LET REAGENT AUTO MICROSCOP Y URNLS DIP 51417 COMBINED COMBINED 0 PHYSICIAN PHYSICIAN STICK/TAB S LA S LA LET REAGENT AUTO MICROSCOP Y CULTURE 79449 COMBINED COMBINED BACTERIAL 0 PHYSICIAN PHYSICIAN S LA S LA QUANTTATI VE COLONY COUNT URINE AMBULANCE A0429 [facility] SERVICE 0 AMBULANCE AMBULANCE BLS SERVICE SERVICE EMERGENCY TRANSPORT GROUND A0425 [facility] MILEAGE 0 AMBULANCE AMBULANCE PER SERVICE SERVICE STATUTE MILE ORTHOPANT 24227 [facility], OGRAM 0 IMPLANT & ERIC [facility] ECG 20126 YOVANY PEDROZA ROUTINE 0 [facility] ECG INC INC W/LEAST 12 LDS TRCG ONLY W/O I&R ECG 01372 YOVANY NORRIS, ROUTINE 0 [facility] W/LEAST PROF SERV 12 LDS I&R ONLY ECG 03463 LEYDI HECTOR, ROUTINE 0 EMERGENCY ALEX S ECG SERVICES W/LEAST 12 LDS ASSOCIATE I&R ONLY S BASIC 03473 YOVANY PEDROZA METABOLIC 0 [facility] PANEL INC INC CALCIUM TOTAL ECG 15660 YOVANY PEDROZA ROUTINE 0 [facility] ECG INC INC W/LEAST 12 LDS TRCG ONLY W/O I&[place] [address] YOVANY PEDROZA TROPONIN 0 [facility] QUANTITAT INC INC SALONI BLOOD 07055 YOVANY PEDROZA COUNT 0 [facility] COMPLETE INC INC AUTO&AUTO DIFRNTL WBC CREATINE 71818 YOVANY PEDROZA KINASE MB 0 [facility] FRACTION INC INC ONLY GROUND A0425 [facility] MILEAGE 0 AMBULANCE AMBULANCE PER SERVICE SERVICE STATUTE MILE AMBULANCE A0429 [facility] SERVICE 0 AMBULANCE AMBULANCE BLS SERVICE SERVICE EMERGENCY TRANSPORT URNLS DIP 38080 YOVANY PEDROZA 0 [facility] STICK/TAB INC INC LET REAGENT AUTO MICROSCOP Y CREATINE 00980 YOVANY PEDROZA KINASE 0 [facility] TOTAL INC INC CREATINE 97178 YOVANY PEDROZA KINASE 0 [facility] [place] [address] YOVANY PEDROZA LIPASE 0 [place] [address] YOVANY PEDROZA TROPONIN 0 [facility] QUANTITAT INC INC SALONI URNLS DIP 80889 YOVANY PEDROZA 0 [facility] STICK/TAB INC INC LET REAGENT AUTO MICROSCOP Y AMBULANCE A0429 [facility] [place] SERVICE 0 AMBULANCE AMBULANCE BLS SERVICE SERVICE EMERGENCY TRANSPORT GROUND A0425 [facility] [place] MILEAGE 0 AMBULANCE AMBULANCE PER SERVICE SERVICE STATUTE MILE CREATINE 12015 YOVANY PEDROZA KINASE MB 0 [facility] [place] [address] YOVANY PEDROZA AMYLASE 0 [facility] INC INC BLOOD 45254 YOVANY PEDROZA COUNT 0 [facility] COMPLETE INC INC AUTO&AUTO DIFRNTL WBC ECG 90267 YOVANY PEDROZA ROUTINE 0 [facility] ECG INC INC W/LEAST 12 LDS TRCG ONLY W/O I&R ECG 10884 YOVANY NGMIE ROUTINE 0 [facility] W/LEAST PROF SERV 12 LDS I&R ONLY COMPREHEN 23560 YOVANY PEDROZA SIVE 0 [facility] METABOLIC INC INC PANEL RADEX ABD 65317 [facility] [place]ITTNEY, COMPL 0 MEDICAL [facility] AQT ABD IMAGING W/S/E/D ASSOCIATE VIEWS 1 S VIEW CH DEBRIDEME 20063 ASHA BARRY NT SKIN 0 ANGY ANGY PARTIAL THICKNESS AMB A0427 [facility] [place] SERVICE 0 AMBULANCE AMBULANCE ALS SERVICE SERVICE [place]ERGENC[place] [address] YOVANY YOVANY HEAD/BRAI 0 [facility] N W/O INC INC CONTRAST MATERIAL 3D 72303 YOVANY PEDROZA RENDERING 0 [facility] W/INTERP INC INC & POSTPROCE SS SUPERVISI ON GROUND A0425 [facility] [place] MILEAGE 0 AMBULANCE AMBULANCE PER SERVICE SERVICE STATUTE MILE BLOOD 68731 COMBINED COMBINED COUNT 0 PHYSICIAN PHYSICIAN COMPLETE S LAB S LAB AUTO&AUTO DIFRNTL WBC COLLECTIO 66381 COMBINED COMBINED N VENOUS 0 PHYSICIAN PHYSICIAN BLOOD S LAB S LAB VENIPUNCT URE TRAVEL [address] MED 0 PHYSICIAN PHYSICIAN NEC LAB S LAB S LAB SPEC; PRORATD TRIP CHRG DEBRIDEME 01000 ASHA BARRY NT SKIN 0 [place] [address] [facility] INFUSION 0 [facility] THERAPY/P INC INC ROPHYLAXI S /DX 1ST TO 1 HR THERAPEUT 12321 [facility] IC 0 [facility] INJECTION INC INC IV PUSH EACH NEW DRUG AMB A0427 [facility] SERVICE 0 AMBULANCE AMBULANCE ALS SERVICE SERVICE [place]GENC[place] [address] [place] [address] DOYLE CARTAGENA, HEAD/BRAI 0 MEDICAL GABRIELLA P N W/O IMAGING CONTRAST ASSOCIATE MATERIAL S ECG 29582 YOVANY ECHEVARRIA, ROUTINE 0 [facility] W/LEAST PROF SERV 12 LDS I&R ONLY BASIC 92179 [facility] METABOLIC 0 [facility] PANEL INC INC CALCIUM TOTAL HEPATIC 73903 [facility] FUNCTION 0 [facility] PANEL INC INC CREATINE 64051 YOV[facility] PEDRO[facility] KINASE MB 0 [facility] FRACTION INC INC ONLY BLOOD 15950 [facility] COUNT 0 [facility] COMPLETE INC INC AUTO&AUTO DIFRNTL WBC 3D 83476 DOYLE CARTAGENA, RENDERING 0 MEDICAL GABRIELLA P W/INTERP IMAGING & ASSOCIATE POSTPROCE [place] ECG 95746 [facility] ROUTINE 0 [facility] ECG INC INC W/LEAST 12 LDS TRCG ONLY W/O I&R GROUND A0425 [facility] MILEAGE 0 AMBULANCE AMBULANCE [place] [address] Y[facility]EDRO[facility] TROPONIN 0 [facility] QUANTITAT INC INC SALONI CREATINE 65182 [facility]RO[facility] KINASE 0 [facility] TOTAL INC INC AMBULANCE A0429 [facility] SERVICE 9 AMBULANCE AMBULANCE BLS SERVICE SERVICE EMERGENCY TRANSPORT GROUND A0425 [facility] 9 AMBULANCE AMBULANCE PER SERVICE SERVICE STATUTE MILE DUP-SCAN 82392 YOVANY PEDRO[facility] XTR VEINS 9 [facility] INC INC UNILATERA L/LIMITED STUDY ECG 89693 [facility] ROUTINE 9 [facility] ECG W/LEAST 12 LDS TRCG ONLY W/O I&R GROUND A0425 [facility] JESSAM[facility] MILEAGE 9 CO CO PER AMBULANCE AMBULANCE STATUTE MILE AMBULANCE A0429 [facility] JESSAM[facility] SERVICE 9 [facility] BLS AMBULANCE AMBULANCE EMERGENCY TRANSPORT ECG 56235 [facility], ROUTINE 9 RADHA DMITRIY G ECG EMERGENCY W/LEAST PHYS INC 12 LDS I&R ONLY IIV3 72002 [facility], VACCINE 9 GABI Boateng SPLIT VIRUS 0.5 ML DOSAGE IM USE ADMINISTR G0008 [facility], ATION OF 9 GABI W GABI Boateng INFLUENZA VIRUS VACCINE BASIC 15207 YOV[facility] PEDROZA METABOLIC 9 [facility] PANEL INC INC CALCIUM TOTAL 3D 65939 [place] [facility] RENDERING 9 MEDICAL GABRIELLA P IMAGING W/INTERP& ASSOCIATE POSTPROC S DIFF WORK STATION CT PELVIS 15960 [facility] W/O 9 [facility] CONTRAST INC INC MATERIAL URNLS DIP 88747 Y[facility] PEDRO[facility] 9 [facility] STICK/TAB INC INC LET REAGENT AUTO MICROSCOP Y GROUND A0425 [facility] MILEAGE 9 AMBULANCE AMBULANCE PER SERVICE SERVICE STATUTE MILE AMBULANCE A0429 [facility] SERVICE 9 AMBULANCE AMBULANCE BLS SERVICE SERVICE EMERGENCY TRANSPORT BLOOD 65292 YOVANY PEDROZA COUNT 9 [facility] COMPLETE INC INC AUTO&[place] [address] YOVANY PEDROZA ABDOMEN 9 [facility] W/O INC INC CONTRAST MATERIAL SET-UP Q0092 [facility] PORTABLE 9 [facility] X-RAY EQUIPMENT TRANS R0075 [facility] PRTBL 9 [facility] XRAY EQP&PERS GINETTE/NRS GINETTE-TRIP> 1 PT RADIOLOGI 12627 [facility] C 9 [facility] EXAMINATI ON KNEE 3 VIEWS URNLS DIP 23042 COMBINED COMBINED 9 PHYSICIAN PHYSICIAN STICK/TAB S LAB S LAB LET REAGENT AUTO MICROSCOP Y DEBRIDEME 58965 FOLLMER, FOLLMER, NT SKIN 9 ANGY S ANGY S PARTIAL THICKNESS MRI LOWER 16234 BRITTNEYBRITTNEY, EXTREM 9 [facility]AY[facility] HARDY OTH/THN JT W/O & W/CONTR MATR COLLECTIO 76822 COMBINED COMBINED N VENOUS 9 PHYSICIAN PHYSICIAN BLOOD S [place] [address] COMBINED COMBINED UREA 9 PHYSICIAN PHYSICIAN NITROGEN S LAB S LAB QUANTITAT SALONI CREATININ 19739 COMBINED COMBINED E BLOOD 9 PHYSICIAN PHYSICIAN S LAB S LAB TRAVEL [address] MED 9 PHYSICIAN PHYSICIAN NEC LAB S LAB S LAB SPEC; PRORATD TRIP CHRG DEBRIDEME 87638 FOLLMER, FOLLMER, NT SKIN 9 ANGY S ANGY S PARTIAL THICKNESS DEBRIDEME 49569 FOLLMER, FOLLMER, NT SKIN 9 ANGY S ANGY S PARTIAL THICKNESS DEBRIDEME 65263 FOLLMER, FOLLMER, NT SKIN 9 ANGY S ANGY S PARTIAL THICKNESS RADIOLOGI 90140 BOBBI BARRYMER, C 9 ANGY S NAGY S EXAMINATI ON FOOT 2 VIEWS SBSQ 99932 CRIS LYNCH, NURSING 9 GABI Boateng FACIL CARE/DAY MINOR COMPLJ 15 MIN ORTHOPANT 79337 [place] KARAN ESTRADA 8 FOR EDENILSON E ORAL&MAXI LLOFACIAL SURGERY IIV3 46936 CRIS LYNCH, VACCINE 8 GABI Boateng SPLIT VIRUS 0.5 ML DOSAGE IM USE ADMINISTR G0008 CRIS LYNCH, ATION OF 8 GABI Boateng INFLUENZA VIRUS VACCINE BASIC 77038 COMBINED COMBINED METABOLIC 8 PHYSICIAN PHYSICIAN PANEL S LAB S LAB CALCIUM TOTAL COLLECTIO 00397 COMBINED COMBINED N VENOUS 8 PHYSICIAN PHYSICIAN BLOOD S LAB S LAB VENIPUNCT URE TRAVEL [address] MED 8 PHYSICIAN PHYSICIAN NEC LAB S LAB S LAB SPEC; PRORATD TRIP CHRG BLOOD 62559 COMBINED COMBINED COUNT 8 PHYSICIAN PHYSICIAN COMPLETE S LAB S LAB AUTO&AUTO DIFRNTL WBC RADEX 67524 DOYLE OSIEL, WRIST 8 MEDICAL GABRIELLA P COMPLETE IMAGING MINIMUM 3 ASSOCIATE VIEWS S GROUND [facility]0425 [facility] AM[facility] PER SERVICE SERVICE STATUTE MILE AMBULANCE A0429 [facility] SERVICE 8 AMBULANCE AMBULANCE BLS SERVICE SERVICE EMERGENCY TRANSPORT SBSQ 72332 CRIS LYNCH, NURSING 8 GABI Boateng FACIL CARE/DAY MINOR COMPLJ 15 MIN SBSQ 42084 CRIS LYNCH, NURSING 8 GABI Boateng FACIL CARE/DAY MINOR COMPLJ 15 MIN Encounters Encounter Start End Date Code Location Performer Type Date EMERGENCY 65149 KENA STEPHENSON DEPT 7 7 PHYSICIAN U VISIT S, PLLC HIGH SEVERITY& THREAT FUNCJ EMERGENCY 44170 YOVANY 7 7 [facility] T VISIT LOW/MODER SEVERITY HOSPITAL YOVANY - 7 7 [facility] OUTPATIEN INC T EMERGENCY 56304 KENA JAMES DEPT 7 7 PHYSICIAN VISIT S, PLLC HIGH SEVERITY& THREAT [facility] YOVANY - 7 7 [facility] OUTPATIEN [facility] T EMERGENCY 97956 KENA HECTOR DEPT 7 7 PHYSICIAN VISIT S, PLLC HIGH SEVERITY& THREAT FUNCJ EMERGENCY 40562 YOVANY 7 7 [facility] INC T VISIT HIGH/URGE NT SEVERITY EMERGENCY 11669 YOVANY 7 7 [facility] T VISIT HIGH/URGE NT SEVERITY HOSPITAL YOVANY - 7 7 [facility] OUTPATIEN [facility] T EMERGENCY 83540 KENA RUSSO DEPT 7 7 PHYSICIAN VISIT S, PLLC HIGH SEVERITY& THREAT FUNCJ EMERGENCY 36043 KENA RUSSO DEPT 7 7 PHYSICIAN VISIT S, PLLC HIGH SEVERITY& THREAT [facility] 7 [facility] EMERGENCY 43050 KENA STEPHENSON DEPT 7 7 PHYSICIAN U VISIT S, [facility] HIGH SEVERITY& THREAT [facility] YOVANY - 6 6 [facility] EMERGENCY 30808 KENA PARKER DEPT 6 6 PHYSICIAN BRITTANEY VISIT S, [facility] HIGH SEVERITY& THREAT [facility] YOVANY - 6 6 [facility] EMERGENCY 39521 YOVANY 6 6 [facility] DEPARTMEN [facility] VISIT MODERATE SEVERITY OFFICE 44155 [facility] 5 5 CLAUDINE BOWLES PHYSICIAN NEW/FLORA S ASSIST PATIENT 60 MIN HOSPITAL YOVANY [facility] 5 5 [facility] OUTPATIEN [facility] YOVANY - 5 5 [facility] YOVANY - 5 5 [facility] YOVANY - 4 4 [facility] OUTPATIEN [facility] YOVANY - 3 3 [facility]PATIEN [facility] YOVANY - 2 2 [facility]PATI[facility] YOVANY - 2 2 [facility]PATIEN [facility] YOVANY - 2 2 [facility]PATIEN [facility] YOVANY - 2 2 [facility] OUTPATIEN [facility] YOVANY - 1 1 [facility]PATIEN [facility] EMERGENCY 88699 YOVANY 1 1 [facility] DEPARTMEN [facility] VISIT HIGH/URGE NT SEVERITY EMERGENCY 14111 LEYDI CHRISTOPHER DEPT 1 1 EMERGENCY III MAXIM VISIT SERVICES HIGH SEVERITY& THREAT [facility] 64120 LEYDI CHRISTOPHER DEPT 1 1 EMERGENCY III MAXIM VISIT SERVICES HIGH SEVERITY& THREAT F[facility]J EMERGENCY 66350 YOVANY 1 1 [facility] DEPARTMEN INC T VISIT HIGH/URGE NT SEVERITY HOSPITAL YOVANY - 1 1 [facility] OUTPATIEN [facility] UNIVERSIT - 1 1 Y [facility] UNIVERSIT - 1 1 Y [facility] T OFFICE 15172 [facility] 1 1 FOOT FOOT T [facility] PROFESSIO PROFESSIO MINUTES NALS NALS EMERGENCY 32161 LEYDI HECTOR, 0 0 EMERGENCY [facility] SERVICES T VISIT HIGH/URGE ASSOCIATE NT S SEVERITY EMERGENCY 81128 [facility] 0 [facility] V[facility]/M INOR [facility]OB [facility] YOVANY - 0 0 [facility] OUT[facility] OFFICE 29619 [facility], OUTPATIEN 0 0 IMPLANT & ERIC R T [facility] 20 ORAL MINUTES [facility] YOVANY - 0 0 [facility] OUTPATIEN [facility] EMERGENCY 80693 YOVANY 0 [facility] T VISIT HIGH/URGE NT SEVERITY EMERGENCY 90535 LEYDI HECTOR, DEPT 0 0 EMERGENCY [facility] VISIT SERVICES HIGH SEVERITY& ASSOCIATE THREAT S FUN EMERGENCY 78691 LEYDI HECTOR, DEPT 0 0 EMERGENCY ALEX S VISIT SERVICES HIGH SEVERITY& ASSOCIATE THREAT S FUN EMERGENCY 11875 YOVANY 0 0 [facility] DEPARTMEN INC T VISIT HIGH/URGE NT SEVERITY HOSPITAL YOVANY - 0 0 [facility] OUTPATIEN [facility] YOVANY - 0 0 [facility] OUT[facility]EN [facility] T EMERGENCY 04411 LEYDI CHRISTOPHER DEPT 0 0 EMERGENCY III, VISIT SERVICES LUISANA HIGH SEVERITY& ASSOCIATE THREAT S [facility] 75504 YOVANY 0 0 [facility] DEPARTMEN INC T VISIT MODERATE SEVERITY EMERGENCY 97886 LEYDI HECTOR, DEPT 0 0 EMERGENCY ALEX S VISIT SERVICES HIGH SEVERITY& ASSOCIATE THREAT S [facility] YOVANY - 0 0 [facility] OUTPATIEN INC T EMERGENCY 08757 YOVANY 0 0 [facility] DEPARTMEN INC T VISIT HIGH/URGE NT SEVERITY OFFICE 60654 ASHA BARRY OUTPATIEN 0 0 ANGY S ANGY S T VISIT 10 MINUTES EMERGENCY 47187 YOVANY 9 9 [facility] T VISIT LOW/MODER SEVERITY HOSPITAL YOVANY - 9 9 [facility] OUTPATIEN INC T HOSPITAL [facility] - 9 [facility] 65112 [facility] DEPT 9 9 HOSPITAL VISIT HIGH SEVERITY& THREAT [facility] 48984 [facility] 9 [facility] T VISIT [facility] INC MODERATE SEVERITY [facility] - 9 9 [facility] T EMERGENCY 88705 LEYDI HECTOR, DEPT 9 9 EMERGENCY ALEX S VISIT SERVICES HIGH SEVERITY& ASSOCIATE THREAT S [facility] 23200 YOVANY 9 9 [facility] DEPARTMEN INC T VISIT HIGH/URGE NT SEVERITY OFFICE 33222 ASHA BARRY OUTPATIEN 9 9 ANGY S ANGY S T VISIT 10 MINUTES OFFICE 95438 ASHA BARRY OUTPATIEN 9 9 ANGY S ANGY S T VISIT 10 MINUTES OFFICE 47152 ASHA BARRY OUTPATIEN 9 9 ANGY S ANGY S T NEW 30 MINUTES OFFICE 09796 [facility] 8 8 FOR EDENILSON BUENO 10 ORAL&MAXI MINUTES [facility] SURGERY [facility] YOVANY - 8 8 [facility] OUTPATIEN INC T EMERGENCY 07662 YOVANY 8 8 [facility] DEPARTMEN INC T VISIT MODERATE SEVERITY
--- OUTSIDE RECORDS SUMMARY | 2017-08-23 19:53 | External Medical Summary Rpt | CCD ---
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 Unavailable Unavailable SERVICE, [facility], [facility] Unavailable Unavailable [facility] Unavailable Unavailable [...] ANIRUDH ALEX HECTOR, Unavailable Unavailable ALEX HECTOR [facility] Unavailable Unavailable INC, [facility] Unavailable Unavailable HOSPITAL P, [facility], Unavailable Unavailable [facility] TREVIZO, DMITRIY G, Unavailable Unavailable TREVIZO, DMITRIY G JAMES, JAMES Unavailable Unavailable [facility] Unavailable Unavailable [facility], [facility] MANDY REGGIE, MANDY Unavailable Unavailable REGG[facility] Unavailable Unavailable [facility], [facility] Unavailable Unavailable [facility], [facility] Unavailable Unavailable IMAGING [facility], [facility] Un[facility], [facility] JR JR DWI, JR Unavailable Unavailable JR DWI JR JR DWI, JR Unavailable Unavailable JR DWI JR, SHIRA E, Unavailable Unavailable JR, SHIRA E [facility] Unavailable Unavailable 11, [facility] 11 [facility] Unavailable Unavailable ACTION, [facility] Unavailable Unavailable SERVICES, [facility] HANY DANIEL MAXIM, Unavailable Unavailable MCKEMIChey DANIEL MAXIM HANY DANIEL MAXIM, Unavailable Unavailable HANY DANIEL MAXIM HANY DANIEL LUISANA Unavailable Unavailable F, LUISANA LEACH JR F [facility], Unavailable Unavailable [facility] Un[facility] Un[facility] LLC, [facility] Mask GABRIELLA CARTAGENA, Unavailable Unavailable [facility]RIE[facility], Unavailable Unavailable PLL[facility], [facility] PEEK, PEEK Unavailable Unavailable PETTEY JAM, PETTEY Unavailable Unavailable JAM PETTEY JAM, PETTEY Unavailable Unavailable JAM [facility], Unavailable Unavailable [facility] RASLAU FLA, RASLAU Unavailable Unavailable FLA RASLAU FLA, RASLAU Unavailable Unavailable FLA RENUSCH, RENUSCH Unavailable Unavailable RENUSCH BRITTANEY, RENUSCH Unavailable Unavailable BRITTANEY CHIQUITA LYDIA, CHIQUITA LYDIA Unavailable Unavailable CHIQUITA LYDIA, CHIQUITA LYDIA Unavailable Unavailable LISETTE MAXIM, LISETTE Unavailable Unavailable MAXIM SOTINGEANU, Unavailable Unavailable [facility] CASTILLO, Unavailable Unavailable CASTILLO [facility], Unavailable Unavailable [facility] SHALA [facility] Unavailable Unavailable [facility] Unavailable Unavailable ASSIST, [facility], Unavailable Unavailable [facility] WEHRMAN III MAXIM, Unavailable Unavailable WEHRMAN III MAXIM WEHRMAN III MAXIM, Unavailable Unavailable WEHRMAN III MAXIM WEHRANA LAURA IIILUISANA, Unavailable Unavailable WERANDA IIILUISANA WISE JAM Unavailable Unavailable Purpose Continuity of Care Document - 12-15-2007 through 2016 Problems Code Diagnosis DOS Provider Status I10 ESSENTIAL 06-08-2017 [facility], HYPERTENSIO [facility] N R0789 OTHER CHEST 06-08-2017 [facility], PLL R079 CHEST PAIN 06-08-[address] [facility] UNSPECIFIED AMBULANCE SERVICE K219 GASTRO-ESOP 04-26-2017 [place] [facility] DISEASE INC WITHOUT ESOPHAGITIS Z720 TOBACCO USE 04-26-2017 [facility] INC R918 OTHER 04-08-2017 [facility] NONSPECIFIC [facility] AB[facility]AL [facility] ASS FINDING OF LUNG FIELD W51196 OTHER LONG 04-08-2017 [facility] P DRUG THERAPY D649 ANEMIA 03-12-2017 [facility] UNSPECIFIED PHYSICIANS LA I498 OTHER 02-22-[address] [facility] SPECIFIED AMBULANCE CARDIAC SERVICE ARRHYTHMIAS J9811 ATELECTASIS 02-22-2017 [facility] I208 OTHER FORMS 01-21-2017 [facility] OF ANGINA PHYSICIANS PECTORIS GROUP R0602 SHORTNESS 01-21-2017 [facility] OF BREATH PHYSICIANS GROUP R069 UNSPECIFIED 01-21-2017 [facility] PHYSICIANS ABNORMALITI GROUP ES OF BREATHING R251 TREMOR 01-17-2017 [facility] UNSPECIFIED [facility]IANS, [facility] R4182 ALTERED 01-17-[address] [facility] MENTAL AMBULANCE STATUS SERVICE UNSPECIFIED I209 ANGINA 01-13-2017 [facility] PECTORIS [facility] UNSPECIFIED INC R0600 DYSPNEA 01-13-2017 [facility] UNSPECIFIED [facility] INC F81281 PAIN IN 07-23-2016 [facility] RIGHT FOOT MOBILE DIAGNOSTIC SE E876 HYPOKALEMIA 07-05-2016 [facility] K209 ESOPHAGITIS 07-05-2016 [facility] UNSPECIFIED INC K5900 CONSTIPATIO 07-05-2016 [facility] N [facility], UNSPECIFIED [facility] N200 CALCULUS OF 07-05-2016 [facility] R1084 GENERALIZED 07-05-2016 [facility] ABDOMINAL [facility]ICAL PAIN IMAGING ASS R1110 VOMITING 07-05-2016 [facility] UNSPECIFIED [facility]ICAL IMAGING ASS R112 NAUSEA WITH 07-05-2016 [facility] VOMITING [facility]YS[facility]IANS, UNSPECIFIED [facility] B351 TINEA 05-28-2016 BRAUDIS JAM UNGUIUM X43398 UNS 05-28-2016 BRAUDIS JAM ATHEROSCLER [place] ART EXTREM BILATERAL LEGS J69802 PAIN IN 05-28-2016 BRAUDIS JAM RIGHT TOES J35976 PAIN IN 05-28-2016 NOEMI TIFFANIE LEFT TOES J189 PNEUMONIA 05-01-2016 [facility] UNSPECIFIED MEDICAL ORGANISM IMAGING ASS J984 OTHER 05-01-2016 [facility] DISORDERS MEDICAL OF LUNG IMAGING ASS K210 GASTRO-ESOP 05-01-2016 [facility] P DISEASE W/ ESOPHAGITIS R05 COUGH 05-01-2016 [facility] R1010 UPPER 05-01-[address] 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 [facility] [place] [facility] NON-STEROID ASSIST AL&ANTI-INF LAMMATORIES J219 ACUTE 10-09-2015 [facility] BRONCHIOLIT [facility] IS INC UNSPECIFIED J441 CHRONIC 10-09-2015 [facility] OBSTRUCTIVE [facility] PULMONARY INC DZ W/EXACERBAT ION E119 TYPE 2 08-22-2015 [facility] DIABETES MOBILE MELLITUS DIAGNOSTIC WITHOUT SE COMPLICATIO NS I03437 PAIN IN 08-22-2015 [facility] LEFT HIP [facility]ICAL IM[facility] ASS L16122 PAIN IN 08-22-2015 [facility] LEFT KNEE MEDICAL IMAGING ASS W13035 PAIN IN 08-22-2015 [facility] LEFT THIGH MEDICAL IM[facility]ING ASS G48620R UNSPECIFIED 08-22-2015 EXPRESS INJURY MOBILE LEFT HIP DIAGNOSTIC INITIAL SE ENCOUNTER L851 ACQ 08-21-2015 NO[facility] MORENO KERATOSIS KERATODERMA PALMARIS ET PLANTARIS 12599 ABDOMINAL 05-30-2015 [facility] PAIN, MEDICAL EPIGASTRIC IMAGING ASS 21856 OTHER 05-21-2015 [facility] DYSPNEA AND MEDICAL IMAG[place] [address] CHEST PAIN 05-21-2015 [facility] UNSPECIFIED [facility]ICAL IMAGING ASS 94398 05-21-2015 [facility] TRANSPORTAT ION SER 5180 PULMONARY 05-07-2015 [facility] COLLAPSE [facility]ICAL IM[facility]ING ASS 4019 UNSPECIFIED 04-06-2015 [facility] P N 84796 DIVERTICULO 03-25-2015 [facility] SIS OF MEDICAL COLON IMAGING ASS 1101 DERMATOPHYT 11-27-2014 NOEMI MORENO OSIS OF NAIL 44081 ATHEROSCLER 11-27-2014 NOEMI MORENO OSIS [place] ART EXTREMITIES UNSPEC 7011 ACQUIRED 11-27-2014 NOEMI MORENO KERATODERMA 7295 PAIN IN 11-27-2014 KATHERINTANESHAAgusto MORENO SOFT TISSUES OF LIMB 7862 COUGH 08-16-2014 [facility] 34763 NONSPEC 08-09-2014 [facility] REACT MOBILE TUBERCULIN DIAGNOSTIC SKIN TEST SE W/O ACTIVE TB 515 POSTINFLAMM 06-05-2014 [facility] ATORY MEDICAL PULMONARY IMAGING ASS FIBROSIS 7851 PALPITATION 06-05-2014 [facility] S [facility]ICAL [facility] 496 CHRONIC 05-27-2014 [facility] AIRWAY MEDICAL OBSTRUCTION IMAGING ASS NEC 6101 DIFFUSE 05-03-2014 [facility]ERGENCY MASTOPATHY PHYS 80511 MASTODYNIA 05-03-2014 JR JR DWI 4928 OTHER 04-25-2014 [facility] EMPHYSEMA [facility]ICAL [facility]ING ASS 7866 SWELLING, 04-25-2014 [facility] MASS, OR [facility] LUMP IN INC CHEST 30102 OTHER 04-25-2014 [facility] NONSPECIFIC MEDICAL ABNORMAL IMAGING ASS FINDING OF LUNG FIELD 2768 HYPOPOTASSE 04-05-2014 WEHRMAN III PEG MAXIM 58076 TRANSIENT 02-17-2014 RASLAU FLA VISUAL LOSS 59170 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 34435 PSYCHOPHYSI 02-16-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 LYDIA MANSI VISUAL DISTURBANCE S 50985 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-16-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 LYDIA CEREBRAL ARTERY OCCLUSION W/INFARCT 09738 OSTEOARTHRO 09-02-2013 PETTEY JAM SIS UNSPEC WHETHER GEN/LOC LOWER LEG 52791 PAIN IN 09-02-2013 [facility] JOINT, [facility] LOWER LEG INC 4660 ACUTE 10-22-2012 JR JR BRONCHITIS DWI 490 BRONCHITIS 10-22-2012 LISETTE MAXIM NOT SPECIFIED ACUTE OR CHRONIC 7802 SYNCOPE AND 08-04-2012 [facility] COLLAPSE [facility]ICAL IM[facility]ING ASS 91913 OTHER CHEST 08-03-2012 BESSON LYDIA PAIN 2749 GOUT, 06-25-2012 [facility] LYDIA UNSPECIFIED 18322 SHORTNESS 06-25-2012 [facility] LYDIA OF BREATH 4111 INTERMEDIAT 05-28-2012 LISETTE PAN E CORONARY SYNDROME 4139 OTHER AND 05-28-2012 HANY DANIEL UNSPECIFIED MAXIM ANGINA PECT[place] 43557 OTHER 05-28-2012 [facility] DISEASES OF MEDICAL LUNG NOT IMAGING ASS ELSEWHERE CLASSIFIED 5990 URINARY 03-12-2011 [facility] TRACT [facility]YSICIANS INFECTION LA SITE NOT SPECIFIED 44548 OTHER 03-12-2011 [facility] ABNORMAL PHYSICIANS GLUCOSE LA 9597 INJURY 03-12-2011 [facility] OTHER&UNSPE PHYSICIANS CIFIED KNEE LA LEG ANKLE&FOOT 5589 OTH&UNSPEC 02-05-2011 [facility] NONINFECTIO [facility] US INC GASTROENTER ITIS&COLITI S 69948 OTHER 02-05-[address] [facility] MALAISE AND AMBULANCE FATIGUE SERVICE 16013 NAUSEA WITH 02-05-2011 [facility] 84297 DIARRHEA 02-05-2011 [facility] V5869 LONG-TERM 02-05-2011 [facility] (CURRENT) [facility] USE OF INC OTHER MEDICATIONS 700 CORNS AND 01-27-2011 [facility] 8930 OPEN WOUND 01-06-2011 [facility] MENTION COMPLICATIO N 7350 HALLUX 12-16-2010 IN MEDICAL VALGUS SERV FOUNDATIO 7354 OTHER 12-16-2010 [facility] HAMMER TOE FOOT PROFESSIONA LS 8931 OPEN WOUND 12-16-2010 [facility] [address] HEAD 04-03-[address] [facility] INJURY, AMBULANCE UNSPECIFIED SERVICE 920 CONTUSION 04-02-2010 [facility] OF FACE EMERGENCY SCALP AND SERVICES [facility] EYE E8889 UNSPECIFIED 04-02-2010 [facility] 5210 DENTAL 03-04-2010 [facility] 7245 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-15-[address] [facility] BACKACHE AMBULANCE SERVICE 39896 ABDOMINAL 01-31-2010 [facility] PAIN, MEDICAL UNSPECIFIED IMAGING SITE ASSOCIATES 06755 ABDOMINAL 01-31-[address] [facility] PAIN, AMBULANCE GENERALIZED SERVICE 68154 ULCER OF 01-30-2010 [facility] OTHER PART OF FOOT 23546 UNSPECIFIED 01-26-2010 [facility] PERIPHERAL [facility]Y VERTIGO SERVICES [facility] 7804 DIZZINESS 01-26-2010 [place] [facility] 7840 HEADACHE 01-26-[address] [facility] AMBULANCE SERVICE 4619 ACUTE 12-02-2009 [facility] SINUSITIS, [facility] PROF SERV 97489 POISONING 09-21-2009 [facility] BY OPI[facility] N EMERGENCY AND RELATED PHYS INC NARCOTICS OTHER V0481 NEED 09-17-2009 BRENDAN LYNCH VACCINATION &INOCULATIO N FLU 02990 HEMATURIA 07-27-[address] [facility] UNSPECIFIED AMBULANCE SERVICE 95535 ABDOMINAL 07-27-2009 [facility] PAIN OTHER EMERGENCY SPECIFIED SERVICES SITE ASSOCIATES 56032 PAIN IN 04-19-2009 BRITTNEY, JOINT, [facility] ANKLE AND FOOT 6829 CELLULITIS 02-23-2009 CRIS, AND ABSCESS GABI W OF UNSPECIFIED SITE 5253 RETAINED 10-18-2008 [facility] DENTAL [facility] FOR [facility]AL&MAXILL OFACIAL SURGERY 76445 PAIN IN 07-15-2008 [facility] JOINT, AMBULANCE FOREARM SERVICE 06732 SPRAIN AND 07-15-2008 [facility] STRAIN OF MEDICAL UNSPECIFIED IMAGING SITE OF ASSOCIATES WRIST E8497 PLACE OF 07-15-2008 [facility] MEDICAL RESIDENTIAL IMAGING ASSOCIATES INSTITUTION E927 OVEREXERTIO 07-15-2008 [facility] N&STRENUOUS MEDICAL &REPETITIVE IMAGING ASSOCIATES MVMNTS/LOAD S 55621 OSTEOARTHRO 06-23-2008 CRIS S INVLV MX GABI [...] MA MG CY CA PS UL E ID 00 09 10 10 5 00 ME [...] 80 7- 1- 00 14 CA ve ID 01 20 20 72 RE AM 00 [...] AR MG MA CY TA BL ET ID 59 07 08 28 7 00 ME [...] 30 2- 4- 00 14 CA ve CA 31 20 20 58 RE DE 10 17 17 26 2 1 94 PH AR MG MA CY CA PS UL E CI 13 07 07 30 30 00 ME Ac TA 66 -0 -2 .0 00 D ti LO 80 7- 8- 00 14 CA ve ID 01 20 20 53 RE AM 00 [...] AR MA MG CY TA BL ET ID 59 06 07 28 7 00 ME [...] 80 8 7- 00 14 CA ve ID 01 20 20 35 RE AM 00 [...] 20 2- 2- 00 14 CA ve ID 00 20 20 18 RE AM 60 [...] 20 4- 5- 00 14 CA ve ID 00 20 20 04 RE AM 60 [...] 20 7- 7- 00 13 CA ve ID 00 20 20 90 RE AM 60 [...] 20 7- 0- 00 13 CA ve ID 00 20 20 76 RE AM 60 [...] 80 0- 7- 00 13 CA ve ID 01 20 20 62 RE AM 00 [...] 80 1- 3- 00 13 CA ve ID 01 20 20 47 RE AM 00 [...] 00 1. 1 ME 36 AR Ac ID 78 -1 -0 00 D 71 NO [...] 017 K/mm3 ed monocyt 19:15 e count [place] % 08-23-2 = 7.4 % 1.7-9.3 complet [...] Procedure DOS Code Location Performer Comment ECG 36855 [facility] ROUTINE 7 PHYSICIAN U ECG S, PLLC W/LEAST 12 LDS I&R ONLY PATIENT G9744 [facility] NOT 7 PHYSICIAN U ELIGIBLE S, PLLC D/T ACTIVE DX HYPERTENS ION AMB A0427 [facility] 7 AMBULANCE AMBULANCE ALS SERVICE SERVICE EMERGENCY TRANSPORT LEVEL 1 GROUND A0425 [facility] 7 AMBULANCE AMBULANCE [place] [address] [facility] PEDRO[facility] TROPONIN 7 [facility] QUANTITAT INC INC SALONI BLOOD 97153 [facility] COUNT 7 [facility] COMPLETE INC INC AUTO&AUTO DIFRNTL WBC ECG 59383 [facility] ROUTINE 7 [facility] ECG INC INC W/LEAST 12 LDS TRCG ONLY W/O I&R COLLECTIO 15233 [facility] N VENOUS 7 [facility] BLOOD INC INC VENIPUNCT URE PATIENT G9744 [facility] NOT 7 PHYSICIAN ELIGIBLE S, PLLC D/T ACTIVE DX HYPERTENS ION COMPREHEN 12865 [facility] SIVE 7 [facility] METABOLIC INC INC PANEL ECG 06642 [facility] JAMES ROUTINE 7 PHYSICIAN ECG S, PLLC W/LEAST 12 LDS I&R ONLY RADIOLOGI 35858 [facility] PEDROZA C 7 [facility] EXAMINATI INC INC ON CHEST SINGLE VIEW FRONTAL RADIOLOGI 80220 [facility] PEDROZA C 7 [facility] EXAMINATI INC INC ON CHEST SINGLE VIEW FRONTAL COMPREHEN 08474 [facility] P[facility] SIVE 7 [facility] METABOLIC INC INC PANEL ECG 12867 [facility] HECTOR ROUTINE 7 PHYSICIAN ECG S, PLLC W/LEAST 12 LDS I&R ONLY CREATINE 06203 [facility] PEDROZA KINASE MB 7 [facility] FRACTION INC INC ONLY ECG 57097 [facility] ROUTINE 7 [facility] ECG INC INC W/LEAST 12 LDS TRCG ONLY W/O I&[place] [address] [facility] PEDROZA TROPONIN 7 [facility] QUANTITAT INC INC SALONI BLOOD 81259 [facility] PEDRO[facility] COUNT 7 [facility] COMPLETE INC INC AUTO&AUTO DIFRNTL WBC GROUND A0425 [facility] 7 AMBULANCE AMBULANCE PER SERVICE SERVICE STATUTE MILE AMB A0427 [facility] SERVICE 7 AMBULANCE AMBULANCE ALS SERVICE SERVICE EMERGENCY TRANSPORT LEVEL 1 CREATINE 99327 [facility] P[facility]RO[facility] KINASE 7 [facility] TOTAL INC INC TRAVEL [address] MED 7 PHYSICIAN PHYSICIAN NEC LAB S LA S LA SPEC; PRORATD TRIP CHRG BASIC 88557 [facility] COMBINED METABOLIC 7 PHYSICIAN PHYSICIAN PANEL S LA S LA CALCIUM TOTAL COLLECTIO 60184 COMBINED COMBINED N VENOUS 7 PHYSICIAN PHYSICIAN B[place] [address] [facility] PEDROZA TROPONIN 7 [facility] [address] [facility] PEDROZA TROPONIN 7 [facility] QUANTITAT INC INC SALONI BLOOD 16721 [facility] PEDROZA COUNT 7 [facility] COMPLETE INC INC AUTO&[place] [address] [facility] PEDROZA AMYLASE 7 [facility] INC INC ECG 84058 [facility] PEDROZA ROUTINE 7 [facility] ECG INC INC W/LEAST 12 LDS TRCG ONLY W/O I&R CREATINE 74232 [facility] MARIANO KINASE MB 7 [facility] FRACTION INC ONLY AMB A0427 [facility] 7 AMBULANCE AMBULANCE ALS SERVICE SERVICE EMERGENCY TRANSPORT LEVEL 1 RADIOLOGI 26095 [facility] C EXAM 7 MEDICAL MEDICAL CHEST 2 IMAGING IMAGING VIEWS ASS ASS FRONTAL&L ATERAL GROUND A0425 [facility] 7 AMBULANCE AMBULANCE PER SERVICE SERVICE STATUTE MILE ECG 98277 [facility] ECHEVARRIA ROUTINE 7 [facility] W/LEAST P 12 LDS I&R ONLY COMPREHEN 49928 [facility] LAST SIVE 7 [facility] METABOLIC INC PANEL RADIOLOGI 85097 [facility] C 7 PHYSICIAN EXAMINATI S, PLLC ON CHEST SINGLE VIEW FRONTAL CREATINE 78394 [facility] RODDY KINASE 7 [facility] [address] [facility] PEDROZA LIPASE 7 [facility] INC INC MYOCARDIA 46263 [facility] SRIVASTAV L SPECT 7 PHYSICIAN A MULTIPLE S GROUP STUDIES CV STRS 29237 [facility] COOK TST 7 PHYSICIAN XERS&/OR S GROUP RX CONT ECG W/O I&R GROUND A0425 [facility] 7 AMBULANCE AMBULANCE PER SERVICE SERVICE STATUTE MILE ECG 35023 [facility] ROUTINE 7 PHYSICIAN ECG S, PLLC W/LEAST 12 LDS I&R ONLY AMB A07 [facility] 7 AMBULANCE AMBULANCE ALS SERVICE SERVICE EMERGENCY TRANSPORT LEVEL 1 ECG 02753 [facility] ROUTINE 7 [facility] ECG INC INC W/LEAST 12 LDS TRCG ONLY W/O I&R GROUND A0425 [facility] AMBULANCE PER SERVICE SERVICE STATUTE MILE AMB A0427 [facility] 7 AMBULANCE AMBULANCE ALS SERVICE SERVICE EMERGENCY TRANSPORT LEVEL 1 ECG 11050 [facility] ECHEVARRIA ROUTINE 7 [facility] W/LEAST P 12 LDS I&R ONLY RADIOLOGI 37711 [facility] MURILLO 7 MEDICAL EXAMINATI IMAGING ON CHEST ASS SINGLE VIEW FRONTAL CT THORAX 08288 [facility] 7 MEDICAL W/CONTRAS IMAGING T ASS MATERIAL BASIC 42702 COM[facility] COMBINED METABOLIC 7 PHYSICIAN PHYSICIAN PANEL S LA S LA CALCIUM TOTAL COLLECTIO 72859 [facility] COMBINED N VENOUS 7 PHYSICIAN PHYSICIAN BLOOD S LA S LA VENIPUNCT URE TRAVEL [address] MED 7 PHYSICIAN PHYSICIAN NEC LAB S LA S LA SPEC; PRORATD TRIP CHRG TRAVEL [address] MED 6 PHYSICIAN PHYSICIAN NEC LAB S LA S LA SPEC; PRORATD TRIP CHRG COLLECTIO 13909 COM[facility] COMBINED N VENOUS 6 PHYSICIAN PHYSICIAN BLOOD S LA S LA VENIPUNCT URE COMPREHEN 65641 COM[facility] COMBINED SIVE 6 PHYSICIAN PHYSICIAN METABOLIC S LA S LA PANEL BLOOD 48396 [facility] COMBINED COUNT 6 PHYSICIAN PHYSICIAN COMPLETE S LA S LA AUTO&AUTO DIFRNTL WBC BLOOD 20632 [facility]ED COUNT 6 PHYSICIAN PHYSICIAN COMPLETE S LA S LA AUTO&AUTO DIFRNTL WBC COMPREHEN 77307 COMBINED COMBINED SIVE 6 PHYSICIAN PHYSICIAN METABOLIC S LA S LA PANEL COLLECTIO 41507 COMBINED COMBINED N VENOUS 6 PHYSICIAN PHYSICIAN BLOOD S LA S LA VENIPUNCT URE TRAVEL [address] MED 6 PHYSICIAN PHYSICIAN NEC LAB S LA S LA SPEC; PRORATD TRIP CHRG ECG 90942 [facility] NORRIS JR ROUTINE 6 [facility] W/LEAST P 12 LDS I&R ONLY CT THORAX 50689 [place] [facility] ALL 6 MEDICAL W/CONTRAS IMAGING T ASS MATERIAL RADIOLOGI 12891 [facility] C 6 MEDICAL MEDICAL EXAMINATI IMAGING IMAGING ON CHEST ASS ASS SINGLE VIEW FRONTAL GROUND A0425 [facility] AMBULANCE PER SERVICE SERVICE STATUTE MILE AMB A0427 [facility] 6 AMBULANCE AMBULANCE ALS SERVICE SERVICE EMERGENCY TRANSPORT LEVEL 1 TRANS R0070 [facility] PRTBL 6 MOBILE MOBILE X-RAY DIAGNOSTI DIAGNOSTI EQP&PERS C SE C SE GINETTE/NRS GINETTE-TRIP 1 PT RADEX 66165 [facility] FOOT 6 MOBILE MOBILE COMPLETE DIAGNOSTI DIAGNOSTI MINIMUM 3 C SE C SE VIEWS SET-UP Q0092 [facility] PORTABLE 6 MOBILE MOBILE X-RAY DIAGNOSTI DIAGNOSTI EQUIPMENT C SE C SE THERAPEUT 76939 [facility]RO[facility] IC 6 [facility] INJECTION INC INC IV PUSH EACH NEW DRUG SUSCEPTIB 69353 [facility] P[facility]RO[facility] LTY STDY 6 [facility] ANTIMICRB INC INC IAL MICRO/AGA R DILUTJ URNLS DIP 36091 [facility] PEDROZA 6 [facility] STICK/TAB INC INC LET REAGENT AUTO MICROSCOP Y CULTURE 00545 [facility] P[facility]RO[facility] BACTERIAL 6 [facility] INC INC QUANTTATI VE COLONY COUNT URINE CULTURE 90328 [facility] PEDRO[facility] BCT 6 [facility] ISOL&PRSM [place] [address] [facility] PEDROZA INFUSION 6 [facility] THER INC INC PROPH ADDL SEQUENTIA L [place] 1 [place] [address] [facility] PEDROZA INFUSION 6 [facility] THERAPY/P INC INC ROPHYLAXI S /DX 1ST TO 1 HR COMPREHEN 87094 [facility] P[facility]RO[facility] SIVE 6 [facility] METABOLIC INC INC PANEL PATIENT G8784 [facility] ROSARIO 6 PHYSICIAN [facility]ANEY Liz, [facility]EM SIT RADIOLOGI 24551 [facility] Guzmán 6 [facility] EXAMINATI INC INC ON CHEST SINGLE VIEW FRONTAL ECG 09571 YOVANY NORRIS JR ROUTINE 6 [facility] W/LEAST P 12 LDS I&R ONLY GROUND A0425 [facility] 6 AMBULANCE AMBULANCE PER SERVICE SERVICE STATUTE MILE AMBULANCE A0429 [facility] 6 AMBULANCE AMBULANCE BLS SERVICE SERVICE EMERGENCY TRANSPORT BLOOD 68161 YOVANY PEDROZA COUNT 6 [facility] COMPLETE INC INC AUTO&[place] [address] YOVANY PEDROZA TROPONIN 6 [facility] QUANTITAT INC INC SALONI 12-LEAD 3120F [facility] ECG 6 PHYSICIAN [place] PERFOR[place], [place] [address] YOVANY PEDROZA ABDOMEN & 6 [facility] PELVIS INC INC W/O CONTRAST MATERIAL ECG 20586 YOVANY PEDROZA ROUTINE 6 [facility] ECG INC INC W/LEAST 12 LDS TRCG ONLY W/O I&[place] [address] YOVANY PEDROZA LIPASE 6 [facility] INC INC TRAVEL [id number] MED 6 PHYSICIAN PHYSICIAN NEC LAB S LA S LA SPEC; PRORATD TRIP CHRG BASIC [id number] COMBINED COMBINED METABOLIC 6 PHYSICIAN PHYSICIAN PANEL S LA S LA CALCIUM TOTAL COLLECTIO 68952 COMBINED COMBINED N VENOUS 6 PHYSICIAN PHYSICIAN BLOOD S LA S LA VENIPUNCT URE DEBRIDEME 46868 NOEMI FRANKLIN NT NAIL 6 JAM JAM ANY METHOD 6/> PARING/CU 07827 NOEMI FRANKLIN TTING 6 JAM JAM BENIGN HYPERKERA TOTIC LESION 2-4 BLOOD 20469 YOVANY PEDROZA OCCULT 6 [facility] PEROXIDAS INC INC E ACTV QUAL FECES 1-3 SPEC GROUND A0425 [facility] 6 AMBULANCE AMBULANCE PER SERVICE SERVICE STATUTE MILE RADIOLOGI 44023 DOYLE LUGO C EXAM 6 MEDICAL ABDIRAHMAN CHEST 2 IMAGING VIEWS ASS FRONTAL&L ATERAL ECG 02861 YOVANY PEDROZA ROUTINE 6 [facility] ECG INC INC W/LEAST 12 LDS TRCG ONLY W/O I&[place] [address] YOVANY PEDROZA TROPONIN 6 [facility] QUANTITAT INC INC SALONI BLOOD 60213 YOVANY PEDROZA COUNT 6 [facility] COMPLETE INC INC AUTO&[place] [address] YOVANY [facility]EDRO[facility] AMYLASE 6 [facility] INC INC CREATINE 29643 YOVANY PEDROZA KINASE MB 6 [facility] FRACTION INC INC ONLY AMB A0427 [facility] 6 AMBULANCE AMBULANCE ALS SERVICE SERVICE EMERGENCY TRANSPORT LEVEL 1 ECG [id number] YOVANY ECHEVARRIA ROUTINE 6 [facility] W/LEAST P 12 LDS I&R ONLY COMPREHEN 86177 YOVANY PEDROZA SIVE 6 [facility] METABOLIC INC INC PANEL CREATINE 70561 YOVANY PEDROZA KINASE 6 [facility] [place] [place] [address] YOVANY PEDROZA LIPASE 6 [facility] INC INC TRAVEL 1 [id number] MED 6 PHYSICIAN PHYSICIAN NEC LAB S LA S LA SPEC; PRORATD TRIP CHRG BASIC 66214 COMBINED COMBINED METABOLIC 6 PHYSICIAN PHYSICIAN PANEL S LA S LA CALCIUM TOTAL COLLECTIO 90635 COMBINED COMBINED N VENOUS 6 PHYSICIAN PHYSICIAN BLOOD S LA S LA VENIPUNCT URE BLOOD 23648 COMBINED COMBINED COUNT 6 PHYSICIAN PHYSICIAN COMPLETE S LA S LA AUTO&AUTO DIFRNTL WBC TRIMMING 25039 NOEMI FRANKLIN NONDYSTRO 6 JAM JAM PHIC NAILS ANY NUMBER DEBRIDEME 69540 NOEMI PANDEYUDIS NT NAIL 6 JAM JAM ANY METHOD 1-5 PARING/CU 16235 BRAUDIS BRAUDIS TTING 6 JAM JAM BENIGN HYPERKERA TOTIC LESION 2-4 PARING/CU 78882 BRAUDIS BRAUDIS TTING 5 JAM JAM BENIGN HYPERKERA TOTIC LESION 2-4 DEBRIDEME 48993 SERGS KATHERINUDIS NT NAIL 5 JAM JAM ANY METHOD 6/> NONEMERG A0120 FEDERATED FEDERATED TRNSPRT: 5 MINI-BUS TRANSPORT TRANSPORT MTN ATION SER ATION SER AREA/OTH SYS RADIOLOGI 62595 [place] [facility] 5 MEDICAL ERUM CHEST 2 IMAGING VIEWS ASS FRONTAL&L ATERAL RADEX HIP 56673 [facility] 5 MEDICAL ABDIRAHMAN UNILATERA IMAGING L ASS COMPLETE MINIMUM 2 VIEWS RADIOLOGI 27900 EXPRESS EXPRESS C 5 MOBILE MOBILE EXAMINATI DIAGNOSTI DIAGNOSTI ON FEMUR C SE C SE 2 VIEWS RADIOLOGI 77990 [facility] 5 MEDICAL ABDIRAHMAN EXAMINATI IMAGING ON KNEE ASS 1/[address] PELVIS 97984 [place] MURILLO ALL W/O 5 MEDICAL CONTRAST IMAGING MATERIAL ASS DEBRIDEME 35718 BRAUDIS BRAUDIS NT NAIL 5 JAM JAM ANY METHOD 1-5 PARING/CU 46509 BRAUDIS BRAUDIS TTING 5 JAM JAM BENIGN HYPERKERA TOTIC LESION 2-4 [place] [address] [place] MURILLO ALL ABDOMEN & 5 MEDICAL PELVIS IMAGING W/O ASS CONTRAST MATERIAL NONEMERG A0120 FEDERATED FEDERATED TRNSPRT: 5 MINI-BUS TRANSPORT TRANSPORT MTN [facility]/OTH SYS CV STRS 67977 [facility] TST 5 PHYSICIAN XERS&/OR S GROUP RX CONT ECG W/O I&R CV STRS 99193 YOVANY NORRIS TST 5 [facility] XERS&/OR HOSPITAL RX CONT P ECG I&R ONLY MYOCARDIA 97236 YOVANY Borrego SPECT 5 [facility] MULTIPLE INC INC STUDIES NONEMERG A0120 FEDERATED FEDERATED TRNSPRT: 5 MINI-BUS TRANSPORT TRANSPORT MTN [facility] SYS RADIOLOGI 00997 [place] AGA 5 MEDICAL ERUM EXAMINATI IMAGING ON CHEST ASS SINGLE VIEW FRONTAL RADIOLOGI 43373 [facility] LUGO 5 MEDICAL ABDIRAHMAN EXAMINATI IMAGING ON CHEST ASS SINGLE VIEW FRONTAL ECG 97722 YOVANY ECHEVARRIA ROUTINE 5 [facility] W/LEAST P 12 LDS I&R ONLY RADIOLOGI 84414 [place] AGA C 5 MEDICAL ERUM EXAMINATI IMAGING [place] [address] [facility] YUNG ABDOMEN & 5 MEDICAL ERUM PELVIS IMAGING W/O ASS CONTRAST MATERIAL PARING/CU 52146 NOEMI FRANKLIN TTING 5 JAM JAM BENIGN HYPERKERA TOTIC LESION 2-4 RADIOLOGI 62354 [facility] ANN C EXAM 4 MEDICAL ERUM CHEST 2 IMAGING VIEWS ASS FRONTAL&L ATERAL RADIOLOGI 32722 EXPRESS EXPRESS C EXAM 4 MOBILE MOBILE CHEST 2 DIAGNOSTI DIAGNOSTI VIEWS C SE C SE FRONTAL&L ATERAL NONEMERG A0120 FEDERATED FEDERATED TRNSPRT: 4 TRANS MINI-BUS TRANSPORT SERVBLUEG MTN [facility] SER ROEL AREA/OTH SYS ECG 00136 ALFARIS ALFARIS ROUTINE 4 MOH MOH ECG W/LEAST 12 LDS I&R ONLY RADIOLOGI 48994 [facility] S[facility] C 4 MEDICAL ERUM EXAMINATI IMAGING ON CHEST ASS SINGLE VIEW FRONTAL RADIOLOGI 22377 [place] BRITTNEY C 4 MEDICAL ABDIRAHMAN EXAMINATI IMAGING ON CHEST ASS SINGLE VIEW FRONTAL NONEMERG A0120 FEDERATED FEDERATED TRNSPRT: 4 TRANS MINI-BUS TRANSPORT SERVBLUEG MTN [facility] SER ROEL AREA/OTH SYS RADIOLOGI 21721 [place] BRITTNEY C 4 MEDICAL ABDIRAHMAN EXAMINATI IMAGING ON CHEST ASS SINGLE VIEW FRONTAL ECG 31298 JR NORRIS JR ROUTINE 4 DWI DWI ECG W/LEAST 12 LDS I&R ONLY NONEMERG A0120 FEDERATED FEDERATED TRNSPRT: 4 TRANS MINI-BUS TRANSPORT SERVBLUEG MTN [facility] SER ROEL AREA/OTH SYS CT THORAX 93888 YOVANY PEDROZA W/O 4 [facility] CONTRAST INC INC MATERIAL RADIOLOGI 30089 [facility] C 4 MEDICAL ABDIRAHMAN EXAMINATI IMAGING ON CHEST ASS SINGLE VIEW FRONTAL ECG 55568 ASHWIN CHRISTOPHER ROUTINE 4 III MAXIM III MAXIM ECG W/LEAST 12 LDS I&R ONLY NONEMERG A0120 FEDERATED FEDERATED TRNSPRT: 4 MINI-BUS TRANSPORT TRANSPORT MTN ATION SER ATION SER AREA/[place] [address] RASLAU RASLAU ANGIOGRAP 4 FLA FLA HY HEAD W/CONTRAS T/NONCONT RAST NONEMERG A0120 FEDERATED FEDERATED TRNSPRT: 4 MINI-BUS TRANSPORT TRANSPORT MTN ATION SER ATION SER AREA/[place] [address] RASLAU RASLAU ANGIOGRAP 4 FLA FLA HY NECK W/CONTRAS T/NONCONT RAST CRITICAL 27216 CHIQUITA LYDIA CHIQUITA LYDIA CARE 4 ILL/INJUR ED PATIENT INIT 30-74 MIN PARING/CU 19265 NOEMI ULRICHS TTING 4 JAM JAM BENIGN HYPERKERA TOTIC LESION 2-4 DEBRIDEME 57200 NOEMI ULRICHS NT NAIL 4 JAM JAM ANY METHOD 6/> RADIOLOGI 70326 YOVANY PEDROZA C EXAM 3 [facility] KNEE INC INC COMPLETE 4/MORE VIEWS INJ J0702 PETTEY PETTEY BETAMETHA 3 JAM JAM SONE ACETATE & PHOSPHATE 3 MG ARTHROCEN 33032 PETTEY PETTEY TESIS 3 JAM JAM ASPIR&/IN J MAJOR JT/BURSA W/O US NONEMERG A0120 LKLP CAC LKLP CAC TRNSPRT: 3 INC INC MINI-BUS REGION 11 REGION 11 MTN AREA/OTH SYS NONEMERG A0120 LKLP CAC LKLP CAC TRNSPRT: 3 INC INC MINI-BUS REGION 11 REGION 11 MTN AREA/OTH SYS ECG 98044 YOVANY PEDROZA ROUTINE 2 [facility] ECG INC INC W/LEAST 12 LDS TRCG ONLY W/O I&R RADIOLOGI 38841 BRITTNEY LUGO C 2 ABDIRAHMAN ABDIRAHMAN EXAMINATI ON CHEST SINGLE VIEW FRONTAL ECG 01877 JR NORRIS JR ROUTINE 2 DWI DWI ECG W/LEAST 12 LDS I&R ONLY OBSERVATI 66752 SWATHI ECHEVARRIA ON CARE 2 [place] [address] [facility] LUGO HEAD/BRAI 2 MEDICAL ABDIRAHMAN N W/[place] [address] [facility] BRITTNEY MAXILLOFA 2 MEDICAL ABDIRAHMAN CIAL W/O IMAGING CONTRAST ASS MATERIAL RADIOLOGI 40284 [facility] BR[facility] C EXAM 2 MEDICAL ABDIRAHMAN CHEST 2 IMAGING VIEWS ASS FRONTAL&L ATERAL ECG 24856 LEYDI HOLLEY ROUTINE 2 EMERGENCY EMERGENCY ECG SERVICES SERVICES W/LEAST 12 LDS I&R ONLY ECG 16118 JR NORRIS JR ROUTINE 2 DWI DWI ECG W/LEAST 12 LDS I&R ONLY EXTERNAL 95896 YOVANY PEDROZA ECG 2 [facility] SCANNING INC INC ANALYSIS REPORT XTRNL ECG 66963 MCKEMIE MCKEMIE 2 JR MAXIM JR MAXIM CONTINUOU S RHYTHM W/I&R UP TO 48 HRS XTRNL ECG 36638 YOVANY PEDROZA & 48 HR 2 [facility] RECORDING INC INC ECG 88542 HANY NGMIE ROUTINE 2 JR MAXIM JR MAXIM ECG W/LEAST 12 LDS I&R ONLY RADIOLOGI 94619 YOVANY PEDROZA C 2 [facility] EXAMINATI INC INC ON CHEST SINGLE VIEW FRONTAL ECG 07826 YOVANY PEDROZA ROUTINE 2 [facility] ECG INC INC W/LEAST 12 LDS TRCG ONLY W/O I&R MYOCARDIA 06468 BILL KHAN L SPECT 2 DENISEBarber JOHNSONZ MULTIPLE STUDIES MYOCARDIA 61771 YOVANY PEDROZA L SPECT 2 [facility] MULTIPLE INC INC STUDIES CV STRS 59679 JR NORRIS JR TST 2 DWI DWI XERS&/OR RX CONT ECG I&R ONLY CV STRS 58063 YOVANY PEDROZA TST 2 [facility] XERS&/OR INC INC RX CONT ECG TRCG ONLY CV STRS 07968 JEROMY RENAE TST 2 XERS&/OR RX CONT ECG W/O I&R NONEMERG A0120 LKLP LKLP TRNSPRT: 2 [facility] MINI-BUS ACTION ACTION MTN AREA/OTH SYS ECG 10742 SWATHI ECHEVARRIA ROUTINE 2 LYDIA LYDIA ECG W/LEAST 12 LDS I&R ONLY ECG 48862 TAWNY FUCHSEY ROUTINE 2 ANIRUDH ANIRUDH ECG W/LEAST 12 LDS I&R ONLY NONEMERG A0120 LKLP LKLP TRNSPRT: 2 [facility] MINI-BUS ACTION ACTION MTN AREA/OTH SYS RADIOLOGI 76551 [facility] 2 MEDICAL ABDIRAHMAN EXAMINATI IMAGING ON CHEST ASS SINGLE VIEW FRONTAL ECG 74410 LISETTE KNOX ROUTINE 2 MAXIM MAXIM ECG W/LEAST 12 LDS I&R ONLY TRIMMING 28097 BRAUDIS BRAUDIS NONDYSTRO 2 JAM JAM PHIC NAILS ANY NUMBER PARING/CU 03654 BRAUDIS BRAUDIS TTING 2 JAM JAM BENIGN HYPERKERA TOTIC LESION 2-4 TRIMMING 85667 BRAUDIS BRAUDIS NONDYSTRO 2 JAM JAM PHIC NAILS ANY NUMBER PARING/CU 77850 BRAUDIS BRAUDIS TTING 2 JAM JAM BENIGN HYPERKERA TOTIC LESION 2-4 ECG 10605 LEYDI CHRISTOPHER ROUTINE 1 EMERGENCY III MAXIM ECG SERVICES W/LEAST 12 LDS I&R ONLY RADIOLOGI 51772 [facility] 1 MEDICAL ABDIRAHMAN EXAMINATI IMAGING ON CHEST ASS SINGLE VIEW FRONTAL COMPREHEN 94768 YOVANY PEDROZA SIVE 1 [facility] METABOLIC INC INC PANEL ECG 65573 YOVANY PEDROZA ROUTINE 1 [facility] ECG INC INC W/LEAST 12 LDS TRCG ONLY W/O I&R CREATINE 39776 YOVANY PEDROZA KINASE MB 1 [facility] FRACTION INC INC ONLY BLOOD 86242 YOVANY PEDROZA COUNT 1 [facility] COMPLETE INC INC AUTO&[place] [address] YOVANY PEDROZA TROPONIN 1 [facility] QUANTITAT INC INC SALONI CREATINE 81983 YOVANY PEDROZA KINASE 1 [facility] TOTAL INC INC URNLS DIP 47082 COMBINED COMBINED 1 PHYSICIAN PHYSICIAN STICK/TAB S LA S LA LET REAGENT AUTO MICROSCOP Y THERAPEUT 42809 YOVANY MCGRAWON IC 1 [facility] INJECTION INC INC IV PUSH EACH NEW DRUG GROUND A0425 [facility] AMBULANCE PER SERVICE SERVICE STATUTE MILE BLOOD 45302 YOVANY PEDROZA COUNT 1 [facility] COMPLETE INC INC AUTO&AUTO DIFRNTL WBC COMPREHEN 47696 YOVANY PEDROZA SIVE 1 [facility] METABOLIC INC INC PANEL RADIOLOGI 04353 YOVANY PEDROZA C 1 [facility] EXAMINATI INC INC ON CHEST SINGLE VIEW FRONTAL AMB A0427 [facility] 1 AMBULANCE AMBULANCE ALS SERVICE SERVICE [place]ERGENCY [place] L[place] 1 [place] [address] YOVANY PEDROZA INFUSION 1 [facility] THERAPY/P INC INC ROPHYLAXI S /DX 1ST TO 1 HR PRESSURIZ 20089 YOVANY PEDROZA ED/NONPRE 1 [facility] SSURIZED INC INC INHALATIO N TREATMENT NONEMERGE A0100 [facility] CAB NCY 1 COMMUNITY TRANSPORT ACTION ATION; TAXI DEBRIDEME 56071 [facility] OPEN 1 Y Y WOUND 20 [facility] SQ CM/< DEBRIDEME 53642 [facility] OPEN 1 Y Y WOUND 20 [facility] SQ CM/< DEBRIDEME 29833 [facility] OPEN 1 FOOT FOOT WOUND 20 PROFESSIO PROFESSIO SQ CM/< NALS NALS NONEMERGE A0100 [facility] CAB NCY 1 COMMUNITY TRANSPORT ACTION ATION; TAXI RADEX 62370 [place] [facility] FOOT 1 MEDICAL COMPLETE SERV MINIMUM 3 FOUNDATIO VIEWS URNLS DIP 72380 COMBINED COMBINED 1 PHYSICIAN PHYSICIAN STICK/TAB S LA S LA LET REAGENT AUTO MICROSCOP Y NONEMERGE A0100 [place] CAB NCY 0 COMMUNITY TRANSPORT ACTION ATION; TAXI URNLS DIP 49079 COMBINED COMBINED 0 PHYSICIAN PHYSICIAN STICK/TAB S LA S LA LET REAGENT AUTO MICROSCOP Y URNLS DIP 56248 COMBINED COMBINED 0 PHYSICIAN PHYSICIAN STICK/TAB S LA S LA LET REAGENT AUTO MICROSCOP Y CULTURE 24974 COMBINED COMBINED BACTERIAL 0 PHYSICIAN PHYSICIAN S LA S LA QUANTTATI VE COLONY COUNT URINE AMBULANCE A0429 [facility] 0 AMBULANCE AMBULANCE BLS SERVICE SERVICE EMERGENCY TRANSPORT GROUND A0425 [facility] MILEAGE 0 AMBULANCE AMBULANCE PER SERVICE SERVICE STATUTE MILE ORTHOPANT 73421 [facility], OGRAM 0 IMPLANT & ERIC R [facility] ECG 95404 YOVANY PEDROZA ROUTINE 0 [facility] ECG INC INC W/LEAST 12 LDS TRCG ONLY W/O I&R ECG 91474 YOVANY NORRIS, ROUTINE 0 [facility] W/LEAST PROF SERV 12 LDS I&R ONLY ECG 89300 LEYDI HECTOR, ROUTINE 0 EMERGENCY ALEX S ECG SERVICES W/LEAST 12 LDS ASSOCIATE I&R ONLY S BASIC 83315 YOVANY PEDROZA METABOLIC 0 [facility] PANEL INC INC CALCIUM TOTAL ECG 47629 YOVANY PEDROZA ROUTINE 0 [facility] ECG INC INC W/LEAST 12 LDS TRCG ONLY W/O I&[place] [address] YOVANY PEDROZA TROPONIN 0 [facility] QUANTITAT INC INC SALONI BLOOD 80962 YOVANY PEDROZA COUNT 0 [facility] COMPLETE INC INC AUTO&AUTO DIFRNTL WBC CREATINE 24434 YOVANY PEDROZA KINASE MB 0 [facility] FRACTION INC INC ONLY GROUND A0425 [facility] MILEAGE 0 AMBULANCE AMBULANCE PER SERVICE SERVICE STATUTE MILE AMBULANCE A0429 [facility] 0 AMBULANCE AMBULANCE BLS SERVICE SERVICE EMERGENCY TRANSPORT URNLS DIP 92513 YOVANY PEDROZA 0 [facility] STICK/TAB INC INC LET REAGENT AUTO MICROSCOP Y CREATINE 83715 YOVANY PEDROZA KINASE 0 [facility] TOTAL INC INC CREATINE 58766 YOVANY PEDROZA KINASE 0 [facility] [place] [address] YOVANY PEDROZA LIPASE 0 [place] [address] YOVANY PEDROZA TROPONIN 0 [facility] QUANTITAT INC INC SALONI URNLS DIP 80673 YOVANY PEDROZA 0 [facility] STICK/TAB INC INC LET REAGENT AUTO MICROSCOP Y AMBULANCE A0429 [facility] [place] [facility] 0 AMBULANCE AMBULANCE BLS SERVICE SERVICE EMERGENCY TRANSPORT GROUND A0425 [facility] [place] MILEAGE 0 AMBULANCE AMBULANCE PER SERVICE SERVICE STATUTE MILE CREATINE 31079 YOVANY PEDROZA KINASE MB 0 [facility] [place] [address] YOVANY PEDROZA AMYLASE 0 [facility] INC INC BLOOD 42134 YOVANY PEDROZA COUNT 0 [facility] COMPLETE INC INC AUTO&AUTO DIFRNTL WBC ECG 29299 YOVANY PEDROZA ROUTINE 0 [facility] ECG INC INC W/LEAST 12 LDS TRCG ONLY W/O I&R ECG 68739 YOVANY NGMIE ROUTINE 0 [facility] W/LEAST PROF SERV 12 LDS I&R ONLY COMPREHEN 15876 YOVANY PEDROZA SIVE 0 [facility] METABOLIC INC INC PANEL RADEX ABD 89770 [facility] BRITTNEY, COMPL 0 MEDICAL HAYLEY AQT ABD IMAGING W/S/E/D ASSOCIATE VIEWS 1 S VIEW CH DEBRIDEME 19007 ASHA BARRY NT SKIN 0 ANGY ANGY PARTIAL THICKNESS AMB A0427 [facility] [place] SERVICE 0 AMBULANCE AMBULANCE ALS SERVICE SERVICE [place] [address] YOVANY YOVANY HEAD/BRAI 0 [facility] N W/O INC INC CONTRAST MATERIAL 3D 48324 YOVANY PEDROZA RENDERING 0 [facility] W/INTERP INC INC & POSTPROCE SS SUPERVISI ON GROUND A0425 [facility] [place] MILEAGE 0 AMBULANCE AMBULANCE PER SERVICE SERVICE STATUTE MILE BLOOD 22834 COMBINED COMBINED COUNT 0 PHYSICIAN PHYSICIAN COMPLETE S LAB S LAB AUTO&AUTO DIFRNTL WBC COLLECTIO 78329 COMBINED COMBINED N VENOUS 0 PHYSICIAN PHYSICIAN BLOOD S LAB S LAB VENIPUNCT URE TRAVEL [address] MED 0 PHYSICIAN PHYSICIAN NEC LAB S LAB S LAB SPEC; PRORATD TRIP CHRG DEBRIDEME 46459 ASHA BARRY NT SKIN 0 [place] [address] YOVANY PEDROZA INFUSION 0 [facility] THERAPY/P INC INC ROPHYLAXI S /DX 1ST TO 1 HR THERAPEUT 78656 YOVANY PEDROZA IC 0 [facility] INJECTION INC INC IV PUSH EACH NEW DRUG AMB A0427 [facility] 0 AMBULANCE AMBULANCE ALS SERVICE SERVICE EMERGENCY [place] [address] [place] [address] DOYLE CARTAGENA, HEAD/BRAI 0 MEDICAL GABRIELLA P N W/O IMAGING CONTRAST ASSOCIATE MATERIAL S ECG 54942 YOVANY ECHEVARRIA, ROUTINE 0 [facility] W/LEAST PROF SERV 12 LDS I&R ONLY BASIC 00374 YOVANY PEDROZA METABOLIC 0 [facility] PANEL INC INC CALCIUM TOTAL HEPATIC 43929 YOVANY PEDROZA FUNCTION 0 [facility] PANEL INC INC CREATINE 57925 YOVANY PEDROZA KINASE MB 0 [facility] FRACTION INC INC ONLY BLOOD 84123 YOVANY PEDROZA COUNT 0 [facility] COMPLETE INC INC AUTO&AUTO DIFRNTL WBC 3D 86405 DOYLE CARTAGENA, RENDERING 0 MEDICAL GABRIELLA P W/INTERP IMAGING & ASSOCIATE POSTPROCE S [place] ECG 98373 YOVANY PEDROZA ROUTINE 0 [facility] ECG INC INC W/LEAST 12 LDS TRCG ONLY W/O I&R GROUND A0425 [facility] MILEAGE 0 AMBULANCE AMBULANCE [place] [address] YOVANY PEDROZA TROPONIN 0 [facility] QUANTITAT INC INC SALONI CREATINE 13888 YOVANY PEDROZA KINASE 0 [facility] TOTAL INC INC AMBULANCE A0429 [facility] 9 AMBULANCE AMBULANCE BLS SERVICE SERVICE EMERGENCY TRANSPORT GROUND A0425 [facility] 9 AMBULANCE AMBULANCE PER SERVICE SERVICE STATUTE MILE DUP-SCAN 87660 YOVANY PEDROZA XTR VEINS 9 [facility] INC INC UNILATERA L/LIMITED STUDY ECG 26856 [facility] ROUTINE 9 [facility] ECG W/LEAST 12 LDS TRCG ONLY W/O I&R GROUND A0425 JESSAMINE JESSAMINE MILEAGE 9 [facility] PER AMBULANCE AMBULANCE STATUTE MILE AMBULANCE A0429 JESSAMINE JESSAMINE SERVICE 9 CO [facility] BLS AMBULANCE AMBULANCE EMERGENCY TRANSPORT ECG 51116 [facility], ROUTINE 9 RADHA DMITRIY G ECG EMERGENCY W/LEAST PHYS INC 12 LDS I&R ONLY IIV3 08109 CRIS LYNCH, VACCINE 9 GABI Boateng SPLIT VIRUS 0.5 ML DOSAGE IM USE ADMINISTR G0008 [facility]IS LYN[facility], ATION OF 9 GABI W GABI Boateng INFLUENZA VIRUS VACCINE BASIC 58257 YOVANY PEDROZA METABOLIC 9 [facility] PANEL INC INC CALCIUM TOTAL 3D 42594 [place] OSIEL RENDERING 9 MEDICAL GABRIELLA P IMAGING W/INTERP& ASSOCIATE POSTPROC S DIFF WORK STATION CT PELVIS 60732 YOVANY PEDROZA W/O 9 [facility] CONTRAST INC INC MATERIAL URNLS DIP 95400 YOVANY PEDROZA 9 [facility] STICK/TAB INC INC LET REAGENT AUTO MICROSCOP Y GROUND A0425 [facility]LE[facility] 9 AMBULANCE AMBULANCE PER SERVICE SERVICE STATUTE MILE AMBULANCE A0429 [facility] 9 AMBULANCE AMBULANCE BLS SERVICE SERVICE EMERGENCY TRANSPORT BLOOD 10618 YOVANY PEDROZA COUNT 9 [facility] COMPLETE INC INC AUTO&[place] [address] YOVANY PEDROZA ABDOMEN 9 [facility] W/O INC INC CONTRAST MATERIAL SET-UP Q0092 [facility] PORTABLE 9 [facility] X-RAY EQUIPMENT TRANS R0075 [facility] PRTBL 9 [facility] XRAY EQP&PERS GINETTE/NRS GINETTE-TRIP> 1 PT RADIOLOGI 62745 [facility] C 9 [facility] EXAMINATI ON KNEE 3 VIEWS URNLS DIP 43636 COMBINED COMBINED 9 PHYSICIAN PHYSICIAN STICK/TAB S LAB S LAB LET REAGENT AUTO MICROSCOP Y DEBRIDEME 66010 FOLLMER, FOLLMER, NT SKIN 9 ANGY S ANGY S PARTIAL THICKNESS MRI LOWER 43110 BRITTNEYBRITTNEY, EXTREM 9 HAYLEY HARDY OTH/THN JT W/O & W/CONTR MATR COLLECTIO 85427 COMBINED COMBINED N VENOUS 9 PHYSICIAN PHYSICIAN BLOOD S [place] [address] COMBINED COMBINED UREA 9 PHYSICIAN PHYSICIAN NITROGEN S LAB S LAB QUANTITAT SALONI CREATININ 10536 COMBINED COMBINED E BLOOD 9 PHYSICIAN PHYSICIAN S LAB S LAB TRAVEL [address] MED 9 PHYSICIAN PHYSICIAN NEC LAB S LAB S LAB SPEC; PRORATD TRIP CHRG DEBRIDEME 09494 FOLLMER, FOLLMER, NT SKIN 9 ANGY S ANGY S PARTIAL THICKNESS DEBRIDEME 47739 FOLLMER, FOLLMER, NT SKIN 9 ANGY S ANGY S PARTIAL THICKNESS DEBRIDEME 37967 FOLLMER, FOLLMER, NT SKIN 9 ANGY S ANGY S PARTIAL THICKNESS RADIOLOGI 96659 BOBBI BARRYMER, C 9 ANGY S ANGY S EXAMINATI ON FOOT 2 VIEWS SBSQ 78847 CRIS LYNCH, NURSING 9 GABI Boateng FACIL CARE/DAY MINOR COMPLJ 15 MIN ORTHOPANT 31422 IN KARAN ESTRADA 8 FOR EDENILSON E ORAL&MAXI LLOFACIAL SURGERY IIV3 90458 CRIS LYNCH, VACCINE 8 GABI Boateng SPLIT VIRUS 0.5 ML DOSAGE IM USE ADMINISTR G0008 CRIS LYNCH, ATION OF 8 GABI Boateng INFLUENZA VIRUS VACCINE BASIC 13980 COMBINED COMBINED METABOLIC 8 PHYSICIAN PHYSICIAN PANEL S LAB S LAB CALCIUM TOTAL COLLECTIO 80923 COMBINED COMBINED N VENOUS 8 PHYSICIAN PHYSICIAN BLOOD S LAB S LAB VENIPUNCT URE TRAVEL [address] MED 8 PHYSICIAN PHYSICIAN NEC LAB S LAB S LAB SPEC; PRORATD TRIP CHRG BLOOD 59937 COMBINED COMBINED COUNT 8 PHYSICIAN PHYSICIAN COMPLETE S LAB S LAB AUTO&AUTO DIFRNTL WBC RADEX 34648 DOYLE OSIEL, WRIST 8 MEDICAL GABRIELLA P COMPLETE IMAGING MINIMUM 3 ASSOCIATE VIEWS S GROUND A0425 [facility]ANCE AMBULANCE PER SERVICE SERVICE STATUTE MILE AMBULANCE A0429 [facility] 8 AMBULANCE AMBULANCE BLS SERVICE SERVICE EMERGENCY TRANSPORT SBSQ 60267 CRIS LYNCH, NURSING 8 GABI Boateng FACIL CARE/DAY MINOR COMPLJ 15 MIN SBSQ 44695 CRIS LYNCH, NURSING 8 GABI Boateng FACIL CARE/DAY MINOR COMPLJ 15 MIN Encounters Encounter Start End Date Code Location Performer Type Date EMERGENCY 19796 KENA STEPHENSON DEPT 7 7 PHYSICIAN U VISIT S, PLLC HIGH SEVERITY& THREAT FUNCJ EMERGENCY 13820 YOVANY 7 7 [facility] T VISIT LOW/MODER SEVERITY HOSPITAL YOVANY - 7 7 [facility] OUTPATIEN INC T EMERGENCY 36494 KENA JAMES DEPT 7 7 PHYSICIAN VISIT S, [facility] HIGH [facility]VERITY& THREAT [facility] YOVANY - 7 7 [facility] T EMERGENCY 27716 KENA HECTOR DEPT 7 7 PHYSICIAN VISIT S, PLL[facility] HIGH SEVERITY& THREAT [facility] EMERGENCY 94915 YOVANY 7 7 [facility] HIGH/URGE NT SEVERITY EMERGENCY 86880 YOVANY 7 7 [facility] T VISIT HIGH/URGE NT SEVERITY HOSPITAL YOVANY - 7 7 [facility] T EMERGENCY 88753 KENA RUSSO DEPT 7 7 PHYSICIAN VISIT S, [facility] HIGH SEVERITY& THREAT [facility] EMERGENCY 35130 KENA RUSSO DEPT 7 7 PHYSICIAN VISIT S, [facility] HIGH SEVERITY& THREAT [facility] YOVANY - 7 7 [facility] OUTPAT[facility]EN [facility] EMERGENCY 51168 KENA STEPHENSON DEPT 7 7 PHYSICIAN U VISIT S, [facility] HIGH SEVERITY& THREAT [facility] YOVANY - 6 6 [facility] OUTPAT[facility]EN [facility] EMERGENCY 14155 KENA PARKER DEPT 6 6 PHYSICIAN BRITTANEY VISIT S[facility] HIGH SEVERITY& THREAT [facility] YOVANY - 6 6 [facility] OUTPATIEN [facility] EMERGENCY 83420 YOVANY 6 6 [facility] DEPARTMEN [facility] VISIT MODERATE SEVERITY OFFICE 26351 [facility] 5 5 CLAUDINE BOWLES PHYSICIAN NEW/FLORA S ASSIST PATIENT 60 MIN HOSPITAL YOVANY [facility] 5 5 [facility] YOVANY - 5 5 [facility] YOVANY - 5 5 [facility]PATI[facility] YOVANY - 4 4 [facility]PATIEN [facility] YOVANY - 3 3 [facility]PATIEN [facility] YOVANY - 2 2 [facility] YOVANY - 2 2 [facility] YOVANY - 2 2 [facility]PATI[facility] YOVANY - 2 2 [facility] OUTPATIEN [facility] YOVANY - 1 1 [facility] OUTPATIEN [facility] EMERGENCY 50589 YOVANY 1 1 [facility] DEPARTMEN [facility] VISIT HIGH/URGE NT SEVERITY EMERGENCY 22109 LEYDI CHRISTOPHER DEPT 1 1 EMERGENCY III MAXIM VISIT SERVICES HIGH SEVERITY& THREAT [facility] EMERGENCY 01519 LEYDI CHRISTOPHER DEPT 1 1 EMERGENCY III MAXIM VISIT SERVICES HIGH SEVERITY& THREAT [facility] EMERGENCY 09333 YOVANY 1 1 [facility] DEPARTMEN INC T VISIT HIGH/URGE NT SEVERITY HOSPITAL YOVANY - 1 1 [facility] OUTPATIEN [facility] UNIVERSIT - 1 1 Y [facility] UNIVERSIT [facility] 1 1 Y [facility] T OFFICE 92229 [facility] 1 1 [facility] FO[facility] T [facility] PROFESSIO PROFESSIO MINUTES NALS NALS EMERGENCY 03670 LEYDI HECTOR, 0 0 EMERGENCY [facility] SERVICES T VISIT HIGH/URGE ASSOCIATE NT S SEVERITY EMERGENCY 22519 [facility]ANY [facility] V[facility]/M [facility] YOVANY - 0 0 [facility] OUTPATIEN [facility] OFFICE 61788 [facility] OUTPATIEN 0 0 IMPLANT & ERIC R T [facility] 20 ORAL MINUT[facility] YOVANY - 0 0 [facility] OUTPATIEN [facility] EMERGENCY 80600 YOVANY 0 [facility] T VISIT HIGH/URGE NT SEVERITY EMERGENCY 10440 LEYDI HECTOR, DEPT 0 0 EMERGENCY [facility] VISIT SERVICES HIGH SEVERITY& ASSOCIATE THREAT S FUN EMERGENCY 72743 LEYDI HECTOR, DEPT 0 0 EMERGENCY [facility] S VISIT SERVICES HIGH SEVERITY& ASSOCIATE THREAT S FUN EMERGENCY [id number] YOVANY 0 0 [facility] INC T VISIT [facility]IGH/URGE NT SEVERITY [facility]OSPITAL YOVANY - 0 0 [facility] OUT[facility]IEN [facility] YOVANY - 0 0 [facility] OUTPATIEN [facility] T EMERGENCY [id number] LEYDI CHRISTOPHER DEPT 0 0 EMERGENCY III, VISIT SERVICES LUISANA HIGH SEVERITY& ASSOCIATE THREAT S [facility] EMERGENCY [id number] YOVANY 0 0 [facility] INC T VISIT MODERATE SEVERITY EMERGENCY [id number] LEYDI HECTOR, DEPT 0 0 EMERGENCY ALEX S VISIT SERVICES HIGH SEVERITY& ASSOCIATE THREAT S [facility] YOVANY - 0 0 [facility] INC T EMERGENCY [id number] YOVANY 0 0 [facility] INC T VISIT HIGH/URGE NT SEVERITY OFFICE [id number] ASHA BARRY OUTPATIEN 0 0 ANGY S ANGY S T VISIT 10 MINUTES EMERGENCY 35928 YOVANY 9 9 [facility]/MODER SEVERITY [facility] YOVANY - 9 9 [facility] INC T [facility] - 9 [facility] EMERGENCY 74963 [facility] DEPT 9 9 HOSPITAL VISIT HIGH SEVERITY& THREAT [facility] EMERGENCY 26394 [facility], 9 9 [facility] T VISIT [facility] INC MODERATE [facility]VERITY [facility] - 9 9 [facility] OUTPATIEN INC T EMERGENCY 34018 LEYDI HECTOR, DEPT 9 9 EMERGENCY ALEX S VISIT SERVICES HIGH SEVERITY& ASSOCIATE THREAT S [facility] EMERGENCY 18765 YOVANY 9 9 [facility]PART[facility] INC T VISIT HIGH/URGE NT SEVERITY OFFICE 14320 ASHA BARRY OUTPATIEN 9 9 ANGY S ANGY S T VISIT 10 MINUTES OFFICE 20490 ASHA BARRY OUTPATIEN 9 9 ANGY S ANGY S T VISIT 10 MINUTES OFFICE 48012 ASHA BARRY OUTPATIEN 9 9 ANGY S ANGY S T NEW 30 MINUTES OFFICE 11551 [facility] JUSTIN HUNTER 8 8 FOR [facility] BU[facility] 10 ORAL&MAXI MINUTES [facility] SURGERY [facility] YOVANY - 8 8 [facility] INC T EMERGENCY 62198 YOVANY 8 8 [facility] DEPART[facility] INC T VISIT MODERATE SEVERITY
--- OUTSIDE RECORDS SUMMARY | 2017-08-23 20:06 | External Medical Summary Rpt | CCD ---
Author Author , [facility] Organization [facility] Address Unknown Phone [email or web address] Care Team Providers Care Networking Technician Name Role Phone ALFARIS MOH, ALFARIS Unavailable [...] JAM BRAUDIS JAM, BRAUDIS Unavailable Unavailable JAM [facility] Unavailable Unavailable SERVICE, [facility] Unavailable Unavailable SERVICE, [facility] Unavailable Unavailable [facility] Unavailable [...] ANIRUDH ALEX HECTOR, Unavailable Unavailable ALEX HECTOR [facility] Unavailable Unavailable INC, [facility] Unavailable Unavailable HOSPITAL P, [facility], Unavailable Unavailable [facility] DMITRIY TREVIZO, Unavailable Unavailable DMITRIY TREVIZO [facility]BER Unavailable Unavailable [facility] Unavailable Unavailable [facility], [facility] MANDY REGGIE, MANDY Unavailable Unavailable RE[facility] Unavailable Unavailable [facility], [facility] Unavailable Unavailable [facility], [facility] Un[facility] Unavailable IM[facility], [facility] Un[facility] Un[facility], [facility] JR JR DWI, JR Unavailable Unavailable JR DWI JR JR DWI, JR Unavailable Unavailable JR DWI JR, SHIRA E, Unavailable Unavailable JR, SHIRA E [facility] Unavailable Unavailable 11, [facility] 11 [facility] Unavailable [facility]available ACTION, [facility] Unavailable Unavailable SERVICES, [facility] MCKEMIE MAXIM, Unavailable Unavailable ETIENNEKEMIE MAXIM HANY DANIEL MAXIM, Unavailable Unavailable HANY DANIEL MAXIM HANY DANIEL LUISANA Unavailable Unavailable F, LUISANA LEACH JR F ERIC GILLETTE, Unavailable Unavailable ERIC GILLETTE R [facility], [facility] GABRIELLA CARTAGENA, Unavailable Unavailable GABRIELLA CARTAGENA PHYSICIANS, [...] [facility] CASTILL[facility], Unavailable Unavailable CASTILLO [facility], Unavailable Unavailable [facility] SHALA, SHALA Unavailable Unavailable [facility] Unavailable Unavailable ASSIST, [facility], Unavailable Unavailable [facility] WEHRMAN III MAXIM, Unavailable Unavailable WEHRMAN III MAXIM WEHRMAN III MAXIM, Unavailable Unavailable [facility]HRMAN III MAXIM WEHRANA LAURA IIILUISANA, Unavailable Unavailable ASHWIN IIILUISANA WISE JAM Unavailable Unavailable Purpose Continuity of Care Document - 12-15-2007 through 2016 Problems Code Diagnosis DOS Provider Status I10 ESSENTIAL 07-31-2017 [facility], HYPERTENSIO [facility] N R0789 OTHER CHEST 06-08-2017 [facility], PLL R079 CHEST PAIN 06-08-2017 [facility] UNSPECIFIED AMBULANCE SERVICE K219 GASTRO-ESOP 04-26-2017 [facility] DISEASE INC WITHOUT ESOPHAGITIS Z720 TOBACCO USE 04-26-2017 [facility] INC R918 OTHER 04-08-2017 [facility] FINDING OF LUNG FIELD R41738 OTHER LONG 04-08-2017 [facility] P DRUG THERAPY D649 ANEMIA 03-12-2017 [facility] UNSPECIFIED PHYSICIANS LA I498 OTHER 02-22-2017 [facility] SPECIFIED AMBULANCE CARDIAC SERVICE ARRHYTHMIAS J9811 ATELECTASIS 02-22-2017 [facility] I208 OTHER FORMS 01-21-2017 [facility] ANGINA PHYSICIANS P[place]IS GROUP R0602 SHORTNESS 01-21-2017 [facility] OF BREATH PHYSICIANS GROUP R069 UNSPECIFIED 01-21-2017 [facility] PH[facility]IANS ABNORMALITI GROUP ES OF BREATHING R251 TREMOR 01-17-2017 [facility] UNSPECIFIED PHYSICIANS, [facility] R4182 ALTERED 01-17-2017 [facility] MENTAL AMBULANCE STATUS SERVICE UNSPECIFIED I209 ANGINA 01-13-2017 [facility] PECT[facility]IS [facility] UNSPECIFIED INC R0600 DYSPNEA 01-13-2017 [facility] UNSPECIFIED [facility] INC I16135 PAIN IN 07-23-2016 [facility] RIGHT FOOT MOBILE DIAGNOSTIC SE E876 HYPOKALEMIA 07-05-2016 [facility], PLLC K209 ESOPHAGITIS 07-05-2016 [facility] UNSPECIFIED INC K5900 CONSTIPATIO 07-05-2016 [facility] N PHYSICIANS, UNSPECIFIED PLL N200 CALCULUS OF 07-05-2016 [facility] R1084 GENERALIZED 07-05-2016 [facility] ABDOM[facility]AL [facility] PAIN [facility]ING ASS R1110 VOMITING 07-05-2016 [place] UNSPECIFIED [facility] IM[facility]ING ASS R112 NAUSEA WITH 07-05-2016 [facility] VOMITING PHYSICIANS, UNSPECIFIED [facility] B351 TINEA 05-28-2016 BRAUDIS JAM UNGUIUM J10994 UNS 05-28-2016 BRAUDIS JAM ATHEROSCLER [place] ART EXTREM BILATERAL LEGS R47928 PAIN IN 05-28-2016 BRAUDIS JAM RIGHT TOES P34677 PAIN IN 05-28-2016 BRAUDIS JAM LEFT TOES J189 PNEUMONIA 05-01-2016 [place] UNSPECIFIED MEDICAL ORGANISM IMAGING ASS J984 OTHER 05-01-2016 [place] DISORDERS MEDICAL OF LUNG IMAGING ASS K210 GASTRO-ESOP 05-01-2016 [facility] P DISEASE W/ ESOPHAGITIS R05 COUGH 05-01-2016 [facility] R1010 UPPER 05-01-2016 [facility] PAIN SERVICE UNSPECIFIED R109 UNSPECIFIED 10-24-2015 [facility] PAIN ASSIST R69 ILLNESS 10-24-2015 [facility] UNSPECIFIED TRANSPORTAT ION SER Z791 ASSISTED 10-24-2015 [facility] CURR [facility] NON-STEROID ASSIST AL&ANTI-INF LAMMATORIES J219 ACUTE 10-09-2015 [facility]ONCHIOLIT [facility] IS INC UNSPECIFIED J441 CHRONIC 10-09-2015 [facility]STRUCTIVE [facility] PULMONARY INC DZ W/EXACERBAT ION E119 TYPE 2 08-22-2015 EXPRESS DIABETES MOBILE MELLITUS DIAGNOSTIC WITHOUT SE COMPLICATIO NS R98856 PAIN IN 08-22-2015 [place] LEFT HIP [facility]ICAL [facility] ASS F07064 PAIN IN 08-22-2015 [place] LEFT KNEE MEDICAL IMAGING ASS N18617 PAIN IN 08-22-2015 [place] LEFT THIGH MEDICAL IMAGING ASS [id number] UNSPECIFIED 08-22-2015 EXPRESS INJURY MOBILE LEFT HIP DIAGNOSTIC INITIAL SE ENCOUNTER L851 ACQ 08-21-2015 NOEMI MORENO KERATOSIS KERATODERMA PALMARIS ET PLANTARIS 19019 ABDOMINAL 05-30-2015 [place] PAIN, MEDICAL EPIGASTRIC IMAGING ASS 66613 OTHER 05-21-2015 [place] DYSPNEA AND MEDICAL [place]AG[place] [address] CHEST PAIN 05-21-2015 [place] UNSPECIFIED [facility]ICAL IMAGING ASS 75173 05-21-2015 [facility] TRANSPORTAT ION SER 5180 PULMONARY 05-07-2015 [place] COLLAPSE [facility] 4019 UNSPECIFIED 04-06-2015 [facility] P N 62130 DIVERTICULO 03-25-2015 [place] SIS OF MEDICAL COLON IMAGING ASS 1101 DERMATOPHYT 11-27-2014 NOEMI MORENO OSIS OF NAIL 73300 ATHEROSCLER 11-27-2014 NOEMI MORENO OSIS [place] ART EXTREMITIES UNSPEC 7011 ACQUIRED 11-27-2014 NOEMI MORENO KERATODERMA 7295 PAIN IN 11-27-2014 NOEMI MORENO SOFT TISSUES OF LIMB 7862 COUGH 08-16-2014 [facility] 79640 NONSPEC 08-09-2014 EXPRESS REACT MOBILE TUBERCULIN DIAGNOSTIC SKIN TEST SE W/O ACTIVE TB 515 POSTINFLAMM 06-05-2014 [place] ATORY MEDICAL PULMONARY IMAGING ASS FIBROSIS 7851 PALPITATION 06-05-2014 [facility] S [facility]ICAL [facility] ASS 496 CHRONIC 05-27-2014 [place] AIRWAY MEDICAL OBSTRUCTION IMAGING ASS NEC 6101 DIFFUSE 05-03-2014 [facility]GENCY MASTOPATHY PHYS 93181 MASTODYNIA 05-03-2014 JR JR DWI 4928 OTHER 04-25-2014 [place] EMPHYSEMA [facility]ICAL [facility] ASS 7866 SWELLING, 04-25-2014 [facility] [place] [place] [facility] LUMP IN INC CHEST 08279 OTHER 04-25-2014 [place] NONSPECIFIC MEDICAL ABNORMAL IMAGING ASS FINDING OF LUNG FIELD 2768 HYPOPOTASSE 04-05-2014 WEHRMAN III PEG MAXIM 92425 TRANSIENT 02-17-2014 [facility] FLA VISUAL LOSS 45678 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 22577 PSYCHOPHYSI 02-16-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 LYDIA MANSI VISUAL DISTURBANCE S 12159 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-16-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 LYDIA CEREBRAL ARTERY OCCLUSION W/INFARCT 25439 OSTEOARTHRO 09-02-2013 PETTEY JAM SIS UNSPEC WHETHER GEN/LOC LOWER LEG 60668 PAIN IN 09-02-2013 [facility] JOINT, [facility] LOWER LEG INC 4660 ACUTE 10-22-2012 JR JR BRONCHITIS DWI 490 BRONCHITIS 10-22-2012 LISETTE MAXIM NOT SPECIFIED ACUTE OR CHRONIC 7802 SYNCOPE AND 08-04-2012 [facility] CO[facility]SE [facility] 14673 OTHER CHEST 08-03-2012 [facility] LYDIA PAIN 2749 GOUT, 06-25-2012 [facility] LYDIA UNSPECIFIED 75303 SHORTNESS 06-25-2012 [facility] LYDIA OF BREATH 4111 INTERMEDIAT 05-28-2012 LISETTE MAXIM E CORONARY SYNDROME 4139 OTHER AND 05-28-2012 HANY DANIEL UNSPECIFIED MAXIM ANGINA PECTORIS 43467 OTHER 05-28-2012 [place] DISEASES OF MEDICAL LUNG NOT IMAGING ASS ELSEWHERE CLASSIFIED 5990 URINARY 03-12-2011 [facility] TRACT [facility]YSIC[facility]ANS INFECTION LA SITE NOT SPECIFIED 41083 OTHER 03-12-2011 [facility] ABNORMAL PHYSICIANS GLUCOSE LA 9597 INJURY 03-12-2011 [facility] OTHER&UNSPE PHYSICIANS CIFIED KNEE LA LEG ANKLE&FOOT 5589 OTH&UNSPEC 02-05-2011 [facility] NONINFECTIO [facility] US INC GASTROENTER ITIS&COLITI S 96930 OTHER 02-05-2011 [facility] MALAISE AND AMBULANCE FATIGUE SERVICE 07223 NAUSEA WITH 02-05-2011 [facility] 32898 DIARRHEA 02-05-2011 [facility] V5869 LONG-TERM 02-05-2011 [facility] (CURRENT) [facility] USE OF INC OTHER MEDICATIONS 700 CORNS AND 01-27-2011 [facility] 8930 OPEN WOUND 01-06-2011 [facility] MENTION COMPLICATIO N 7350 HALLUX 12-16-2010 [place] [facility] 7354 OTHER 12-16-2010 [facility] HAMMER TOE FOOT PROFESSIONA LS 8931 OPEN WOUND 12-16-2010 [facility] [place] [address] HEAD 04-03-2010 [facility] INJURY, AMBULANCE UNSPECIFIED SERVICE 920 CONTUSION 04-02-2010 [facility] SCALP AND SERVICES NECK EXCEPT ASSOC[facility]ATES EYE E8889 UNSPECIFIED 04-02-2010 [facility] 5210 DENTAL 03-04-2010 [facility] 7245 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-15-2010 [facility] BACKACHE AMBULANCE SERVICE 01299 ABDOMINAL 01-31-2010 [place] PAIN, MEDICAL UNSPECIFIED IMAGING SITE ASSOCIATES 63719 ABDOMINAL 01-31-2010 [facility] PAIN, AMBULANCE GENERALIZED SERVICE 00768 ULCER OF 01-30-2010 FO[facility] ANGY OTHER PART OF FOOT 81450 UNSPECIFIED 01-26-2010 [facility]HERAL [facility] VERTIGO [facility] 7804 DIZZINESS 01-26-2010 [facility] AND MEDICAL GIDDINESS IMAGING ASSOCIATES 7840 HEADACHE 01-26-2010 [facility] AMBULANCE SERVICE 4619 ACUTE 12-02-2009 [facility] SINUSITIS, [facility] PROF SERV 95610 POISONING 09-21-2009 [facility] BY OPIATES N EMERGENCY AND RELATED PHYS INC NARCOTICS OTHER V0481 NEED 09-17-2009 [facility] LYNCHACTCandy Guzmán VACCINATION &INOCULATIO N FLU 55222 HEMATURIA 07-27-2009 [facility] UNSPECIFIED AMBULANCE SERVICE 32134 ABDOMINAL 07-27-2009 [facility] OTHER EMERGENCY SPECIFIED SERVICES SITE ASSOCIATES 46626 PAIN IN 04-19-2009 BRITTNEY, JOINT, HAYLEY ANKLE AND FOOT 6829 CELLULITIS 02-23-2009 CRIS, AND ABSCESS GABI Boateng OF UNSPECIFIED SITE 5253 RETAINED 10-18-2008 [facility] DENTAL [facility] FOR [facility]&MAXILL OFACIAL SURGERY 99934 PAIN IN 07-15-2008 [facility] JOINT, AMBULANCE FOREARM SERVICE 31758 SPRAIN AND 07-15-2008 [place] STRAIN OF MEDICAL UNSPECIFIED IMAGING SITE OF ASSOCIATES WRIST E8497 PLACE OF 07-15-2008 [place] OCCURRENCE MEDICAL RESIDENTIAL IMAGING ASSOCIATES INSTITUTION E927 OVEREXERTIO 07-15-2008 [place] N&STRENUOUS MEDICAL &REPETITIVE IMAGING ASSOCIATES MVMNTS/LOAD S 26582 OSTEOARTHRO 06-23-2008 Ag[facility] LYNCH INVLV MX GABI W SITES BUT NOT SPEC GEN Medications Na ND Rx Da Fi Fi Am Da Di Ph RX Ph St me C No te ll ll ou ys ag ar # ys at rm s nt no ma ic us Or Da si cy ia de te s n re d 00 09 10 30 30 00 ME Ac PI 53 -1 -1 .0 00 D ti RI 61 8- 3- 00 14 CA ve N 00 20 20 95 RE EC 44 17 17 93 1 05 PH 81 AR MA MG CY TA BL ET GA 65 09 10 42 14 00 ME Ac BA 86 -1 -1 .0 00 D ti PE 20 8- 3- 00 14 CA ve NT 19 20 20 96 RE IN 80 17 17 83 1 78 PH 10 AR 0 MA MG CY CA PS UL E [place] 00 09 10 10 5 00 ME [...] CY DR 40 MG TA B LO 69 09 10 42 14 00 [...] MG CY TA BL ET PO 62 08 09 90 30 00 ME Ac TA 03 -2 -1 .0 00 D ti SS 70 3- 5- 00 14 CA ve IU 99 20 20 71 RE M 91 17 17 52 CL 0 88 PH AR ER MA CY 20 ME Q TA BL ET 00 08 09 30 [...] DR 40 MG TA B BU 00 08 09 60 30 00 [...] 80 7- 1- 00 14 CA ve [place] 01 20 20 72 RE AM 00 [...] MA MG CY CA PS UL E [place] 59 07 08 28 7 00 ME [...] 30 2- 4- 00 14 CA ve MA 31 20 20 58 RE DE 10 [...] 80 7- 8- 00 14 CA ve [place] 01 20 20 53 RE AM 00 [...] MA TA CY BL ET LO 00 06 07 30 30 00 ME Ac RA 78 -0 -0 .0 00 D ti TA 15 5- 7- 00 14 CA ve DI 07 20 20 32 RE NE 70 17 17 96 1 11 PH 10 AR MA MG CY TA BL ET [place] 59 06 07 28 7 00 ME [...] 80 8- 7- 00 14 CA ve [place] 01 20 20 35 RE AM 00 [...] 20 2- 2- 00 14 CA ve [place] 00 20 20 18 RE AM 60 [...] MG AR MA TA CY BL ET PA 00 04 05 30 30 00 [...] 20 4- 5- 00 14 CA ve [place] 00 20 20 04 RE AM 60 [...] CY 75 -5 0 MG TA B BE 00 03 05 [...] 20 7- 7- 00 13 CA ve [place] 00 20 20 90 RE AM 60 [...] MA TA CY BL ET CI 65 02 03 30 30 00 ME Ac TA 86 -1 -1 .0 00 D ti LO 20 7- 0- 00 13 CA ve [place] 00 20 20 76 RE AM 60 17 17 37 5 73 PH HB AR R MA 20 CY MG TA BL ET PA 00 02 03 30 30 00 [...] CY 20 ME Q TA BL ET MA 00 02 03 12 [...] CY 75 -5 0 MG TA B BE 00 02 02 60 30 00 [...] 80 0- 7- 00 13 CA ve [place] 01 20 20 62 RE AM 00 [...] MG CY TA LL BL C ET BA 00 12 01 60 30 00 ME Ac CL 17 -3 -2 .0 00 D ti OF 24 1- 0- 00 13 CA ve EN 09 20 20 52 RE 78 16 17 58 20 0 78 PH AR MG MA CY TA BL LL ET C LO 00 12 01 42 14 00 ME Ac RA 60 -2 -2 .0 00 D ti ZE 34 9- 0- 00 13 CA ve PA 24 20 20 51 RE M 73 16 17 44 1 2 52 PH MG AR MA TA CY BL ET LL C CI 13 12 01 30 30 00 ME Ac TA 66 -2 -1 .0 00 D ti LO 80 1- 3- 00 13 CA ve [place] 01 20 20 47 RE AM 00 [...] % CR EA M 00 05 07 03 20 3 ME 35 AR Ac 18 -0 -0 .0 D 82 NO ti 28 4- 2- 00 CA 17 LD ve 44 20 20 RE 9 78 09 09 RI 9 PH CH AR AR MA D CY W LL C 00 06 07 00 30 30 ME 36 AR Ac 06 -2 -0 .0 D 85 NO ti 76 5- 2- 00 CA 72 LD ve 07 20 20 RE 9 03 09 09 RI 0 PH CH AR AR MA D CY W LL C AL 00 06 07 00 1. 1 ME 36 AR Ac [place] 78 -1 -0 00 D 71 NO ti [place] 11 0- 2- 0 CA 93 LD ve OL 07 20 20 RE 5 AM 71 09 09 RI 0 PH CH 0. AR AR 5 MA D MG CY W TA LL BL C ET TH 00 03 06 03 30 30 [...] PLLC D/T ACTIVE DX HYPERTENS ION ECG 42881 [facility] STEPHENSON ROUTINE 7 PHYSICIAN U ECG S, PLLC W/LEAST 12 LDS I&R ONLY GROUND A0425 [facility] MILEAGE 7 AMBULANCE AMBULANCE PER SERVICE SERVICE STATUTE MILE AMB A0427 [facility] SERVICE 7 AMBULANCE AMBULANCE ALS SERVICE SERVICE EMERGENCY TRANSPORT LEVEL 1 ECG 17723 KENA JAMES ROUTINE 7 PHYSICIAN ECG S, PLLC W/LEAST 12 LDS I&R ONLY ECG 44625 [facility] PEDROZA ROUTINE 7 [facility] ECG INC INC W/LEAST 12 LDS TRCG ONLY W/O I&R COLLECTIO 81589 [facility] PEDROZA N VENOUS 7 [facility] BLOOD INC INC VENIPUNCT URE PATIENT G9744 KENA JAMES NOT 7 PHYSICIAN ELIGIBLE S, PLLC D/T ACTIVE DX HYPERTENS ION RADIOLOGI 84019 [facility] PEDROZA C 7 [facility] EXAMINATI INC INC [place] [address] [facility] PEDROZA TROPONIN 7 [facility] QUANTITAT INC INC SALONI BLOOD 13651 [facility] PEDROZA COUNT 7 [facility] COMPLETE INC INC AUTO&AUTO DIFRNTL WBC COMPREHEN 51489 [facility] PEDROZA SIVE 7 [facility] METABOLIC INC INC PANEL COMPREHEN 22394 [facility] PEDROZA SIVE 7 [facility] [place] [address] [facility] PEDROZA TROPONIN 7 [facility] H[facility] QUANTITAT INC INC SALONI BLOOD 96929 [facility] YOVANY COUNT 7 [facility] COMPLETE INC INC AUTO&AUTO DIFRNTL WBC RADIOLOGI 88647 [facility] MURILLO C 7 MEDICAL EXAMINATI IMAGING ON CHEST ASS SINGLE VIEW FRONTAL CREATINE 47568 [facility] PEDROZA KINASE MB 7 [facility] FRACTION INC INC ONLY ECG 83276 [facility] PEDROZA ROUTINE 7 [facility] ECG INC INC W/LEAST 12 LDS TRCG ONLY W/O I&R CREATINE 59800 Y[facility] PEDROZA KINASE 7 [facility] TOTAL INC INC ECG 53018 KENA HECTOR ROUTINE 7 PHYSICIAN ECG S, PLLC W/LEAST 12 LDS I&R ONLY AMB A0427 [facility] SERVICE 7 AMBULANCE AMBULANCE ALS SERVICE SERVICE EMERGENCY TRANSPORT LEVEL 1 GROUND A0425 [facility] MILEAGE 7 AMBULANCE AMBULANCE PER SERVICE SERVICE STATUTE MILE TRAVEL [address] MED 7 PHYSICIAN PHYSICIAN NEC LAB S LA S LA SPEC; PRORATD TRIP CHRG BASIC 19572 COMBINED COMBINED METABOLIC 7 PHYSICIAN PHYSICIAN PANEL S LA S LA CALCIUM TOTAL COLLECTIO 97862 COMBINED COMBINED N VENOUS 7 PHYSICIAN PHYSICIAN B[place] [address] Y[facility] PEDROZA TROPONIN 7 [facility] H[facility] [place] [address] Y[facility] PEDROZA TROPONIN 7 [facility] QUANTITAT INC INC SALONI BLOOD 15351 [facility] PEDROZA COUNT 7 [facility] COMPLETE INC INC AUTO&AUTO DIFRNTL WBC COMPREHEN 77592 Y[facility] SHALA SIVE 7 [facility] [place] [address] YOVANY PEDROZA AMYLASE 7 [facility] INC INC CREATINE 25319 Y[facility] MARIANO KINASE MB 7 [facility] FRACTION INC ONLY RADIOLOGI 63733 KENA PARKER C 7 PHYSICIAN EXAMINATI S, PLLC ON CHEST SINGLE VIEW FRONTAL RADIOLOGI 43354 [facility] EXAM 7 MEDICAL MEDICAL CHEST 2 IMAGING IMAGING VIEWS ASS ASS FRONTAL&L ATERAL ECG 70313 Y[facility] ECHEVARRIA ROUTINE 7 [facility] W/LEAST P 12 LDS I&R ONLY ECG 11871 Y[facility] PEDROZA ROUTINE 7 [facility] ECG INC INC W/LEAST 12 LDS TRCG ONLY W/O I&R CREATINE 32886 Y[facility]ANY KIMBLES KINASE 7 [facility] [place] [place] [address] Y[facility]ANY PEDROZA LIPASE 7 [facility] INC INC GROUND A0425 [facility] 7 AMBULANCE AMBULANCE PER SERVICE SERVICE STATUTE MILE AMB A0427 [facility] SERVICE 7 AMBULANCE AMBULANCE ALS SERVICE SERVICE EMERGENCY TRANSPORT LEVEL 1 CV STRS 95998 [facility] COOK TST 7 PHYSICIAN XERS&/OR S GROUP RX CONT ECG W/O I&R MYOCARDIA 24028 [facility] SRIVASTAV L SPECT 7 PHYSICIAN A MULTIPLE S GROUP STUDIES ECG 38206 [facility] ROUTINE 7 PHYSICIAN ECG S, PLLC W/LEAST 12 LDS I&R ONLY AMB A0427 [facility] SERVICE 7 AMBULANCE AMBULANCE ALS SERVICE SERVICE EMERGENCY TRANSPORT LEVEL 1 GROUND A0425 [facility] 7 AMBULANCE AMBULANCE PER SERVICE SERVICE STATUTE MILE ECG 00575 [facility] PEDROZA ROUTINE 7 [facility] ECG INC INC W/LEAST 12 LDS TRCG ONLY W/O I&R AMB A0427 [facility] SERVICE 7 AMBULANCE AMBULANCE ALS SERVICE SERVICE EMERGENCY TRANSPORT LEVEL 1 ECG 75748 Y[facility] ECHEVARRIA ROUTINE 7 [facility] W/LEAST P 12 LDS I&R ONLY CT THORAX 64011 [facility] M[facility]ILLO 7 MEDICAL W/CONTRAS IMAGING T ASS MATERIAL RADIOLOGI 50516 [facility] CHIDI Guzmán 7 MEDICAL EXAMINATI IMAGING ON CHEST ASS SINGLE VIEW FRONTAL GROUND A0425 [facility] 7 AMBULANCE AMBULANCE PER SERVICE SERVICE STATUTE MILE COLLECTIO 02775 COMBINED COMBINED N VENOUS 7 PHYSICIAN PHYSICIAN BLOOD S LA S LA VENIPUNCT URE BASIC 53798 COMBINED COMBINED METABOLIC 7 PHYSICIAN PHYSICIAN PANEL S LA S LA CALCIUM TOTAL TRAVEL [address] MED 7 PHYSICIAN PHYSICIAN NEC LAB S LA S LA SPEC; PRORATD TRIP CHRG TRAVEL [address] MED 6 PHYSICIAN PHYSICIAN NEC LAB S LA S LA SPEC; PRORATD TRIP CHRG COLLECTIO 34842 COMBINED COMBINED N VENOUS 6 PHYSICIAN PHYSICIAN BLOOD S LA S LA VENIPUNCT URE COMPREHEN 37296 COMBINED COMBINED SIVE 6 PHYSICIAN PHYSICIAN METABOLIC S LA S LA PANEL BLOOD 97861 COMBINED COMBINED COUNT 6 PHYSICIAN PHYSICIAN COMPLETE S LA S LA AUTO&AUTO DIFRNTL WBC BLOOD 75075 COMBINED COMBINED COUNT 6 PHYSICIAN PHYSICIAN COMPLETE S LA S LA AUTO&AUTO DIFRNTL WBC COMPREHEN 02080 COMBINED COMBINED SIVE 6 PHYSICIAN PHYSICIAN METABOLIC S LA S LA PANEL COLLECTIO 46114 COMBINED COMBINED N VENOUS 6 PHYSICIAN PHYSICIAN BLOOD S LA S LA VENIPUNCT URE TRAVEL [address] MED 6 PHYSICIAN PHYSICIAN NEC LAB S LA S LA SPEC; PRORATD TRIP [facility] ECG 81372 YOVANY NORRIS JR ROUTINE 6 [facility] W/LEAST P 12 LDS I&R ONLY AMB A0427 [facility] SERVICE 6 AMBULANCE AMBULANCE ALS SERVICE SERVICE EMERGENCY TRANSPORT LEVEL 1 RADIOLOGI 13023 [facility] C 6 MEDICAL MEDICAL EXAMINATI IMAGING IMAGING ON CHEST ASS ASS SINGLE VIEW FRONTAL CT THORAX 85807 [place] [facility] ALL 6 MEDICAL W/CONTRAS IMAGING T ASS MATERIAL GROUND A0425 [facility] 6 AMBULANCE AMBULANCE PER SERVICE SERVICE STATUTE MILE TRANS R0070 [facility] PRTBL 6 MOBILE MOBILE X-RAY DIAGNOSTI DIAGNOSTI EQP&PERS C SE C SE GINETTE/NRS GINETTE-TRIP 1 PT RADEX 77180 [facility] FOOT 6 MOBILE MOBILE COMPLETE DIAGNOSTI DIAGNOSTI MINIMUM 3 C SE C SE VIEWS SET-UP Q0092 [facility] PORTABLE 6 MOBILE MOBILE X-RAY DIAGNOSTI [place] [address] YOVANY PEDROZA INFUSION 6 [facility] THERAPY/P INC INC ROPHYLAXI S /DX 1ST TO 1 HR THERAPEUT 39371 YOVANY PEDROZA IC 6 [facility] INJECTION INC [place] [address] YOVANY PEDROZA INFUSION 6 [facility] THER INC INC PROPH ADDL SEQUENTIA L TO 1 HR URNLS DIP 41634 YOVANY YOVANY 6 [facility] STICK/TAB INC INC LET REAGENT AUTO MICROSCOP Y SUSCEPTIB 68163 YOVANY PEDROZA LTY STDY 6 [facility] ANTIMICRB INC INC IAL MICRO/AGA R DILUTJ CULTURE 41305 YOVANY PEDROZA BACTERIAL 6 [facility] INC INC QUANTTATI VE COLONY COUNT URINE CULTURE 18053 YOVANY PEDROZA BCT 6 [facility] ISOL&PRSM INC INC PTV ID ISOLATE EA URINE PATIENT G8784 KENA RENUSCH NOT 6 [facility] E.G. PT REFUSES URGENT/EM SIT RADIOLOGI 01878 YOVANY PEDROZA C 6 [facility] EXAMINATI INC [place] [address] YOVANY PEDROZA TROPONIN 6 [facility] QUANTITAT INC INC SALONI BLOOD 73444 YOVANY PEDROZA COUNT 6 [facility] COMPLETE INC INC AUTO&AUTO DIFRNTL WBC COMPREHEN 30284 YOVANY PEDROZA SIVE 6 [facility] METABOLIC INC INC PANEL 12-LEAD 3120F KENA RUSSO ECG 6 [facility]IC[facility] ECG 76087 YOVANY NORRIS JR ROUTINE 6 [facility] W/LEAST P 12 LDS I&R ONLY ECG 50607 YOVANY PEDROZA ROUTINE 6 [facility] ECG INC INC W/LEAST 12 LDS TRCG ONLY W/O I&[place] [address] DOYLE MURILLO ALL ABDOMEN & 6 MEDICAL PELVIS IMAGING W/[place] [address] YOVANY PEDROZA LIPASE 6 [facility] INC INC GROUND A0425 [facility] MILEAGE 6 AMBULANCE AMBULANCE PER SERVICE SERVICE STATUTE MILE AMBULANCE A0429 [facility] SERVICE 6 AMBULANCE AMBULANCE BLS SERVICE SERVICE EMERGENCY TRANSPORT TRAVEL [address] MED 6 PHYSICIAN PHYSICIAN NEC LAB S LA S LA SPEC; PRORATD TRIP CHRG BASIC 30192 COMBINED COMBINED METABOLIC 6 PHYSICIAN PHYSICIAN PANEL S LA S LA CALCIUM TOTAL COLLECTIO 09017 COMBINED COMBINED N VENOUS 6 PHYSICIAN PHYSICIAN BLOOD S LA S LA VENIPUNCT URE DEBRIDEME 88097 NOEMI FRANKLIN NT NAIL 6 JAM JAM ANY METHOD 6/> PARING/CU 30242 NOEMI ULRICHS TTING 6 JAM JAM BENIGN HYPERKERA TOTIC LESION 2-4 BLOOD 70359 YOVANY PEDROZA OCCULT 6 [facility] PEROXIDAS INC INC E ACTV QUAL FECES 1-3 [place] [address] YOVANY PEDROZA TROPONIN 6 [facility] QUANTITAT INC INC SALONI BLOOD 13642 YOVANY PEDROZA COUNT 6 [facility] COMPLETE INC INC AUTO&AUTO DIFRNTL WBC COMPREHEN 93111 YOVANY PEDROZA SIVE 6 [facility] [place] [address] YOVANY PEDROZA AMYLASE 6 [facility] INC INC CREATINE 83410 YOVANY PEDROZA KINASE MB 6 [facility] FRACTION INC INC ONLY CREATINE 03345 YOVANY PEDROZA KINASE 6 [facility] [place] [address] YOVANY PEDROZA LIPASE 6 [facility] INC INC ECG 07733 YOVANY PEDROZA ROUTINE 6 [facility] ECG INC INC W/LEAST 12 LDS TRCG ONLY W/O I&R RADIOLOGI 56804 DOYLE LUGO C EXAM 6 MEDICAL ABDIRAHMAN CHEST 2 IMAGING VIEWS ASS FRONTAL&L ATERAL ECG 78004 YOVANY ECHEVARRIA ROUTINE 6 [facility] W/LEAST P 12 LDS I&R ONLY AMB A0427 [facility] SERVICE 6 AMBULANCE AMBULANCE ALS SERVICE SERVICE EMERGENCY TRANSPORT LEVEL 1 GROUND A0425 [facility] AMBULANCE AMBULANCE PER SERVICE SERVICE STATUTE MILE TRAVEL [address] MED 6 PHYSICIAN PHYSICIAN NEC LAB S LA S LA SPEC; PRORATD TRIP CHRG COLLECTIO 60608 COMBINED COMBINED N VENOUS 6 PHYSICIAN PHYSICIAN BLOOD S LA S LA VENIPUNCT URE BASIC 48359 COMBINED COMBINED METABOLIC 6 PHYSICIAN PHYSICIAN PANEL S LA S LA CALCIUM TOTAL BLOOD 40229 COMBINED COMBINED COUNT 6 PHYSICIAN PHYSICIAN COMPLETE S LA S LA AUTO&AUTO DIFRNTL WBC DEBRIDEME 68366 BRAUDIS BRAUDIS NT NAIL 6 JAM JAM ANY METHOD 1-5 TRIMMING 28006 BRAUDIS BRAUDIS NONDYSTRO 6 JAM JAM PHIC NAILS ANY NUMBER PARING/CU 94319 BRAUDIS BRAUDIS TTING 6 JAM JAM BENIGN HYPERKERA TOTIC LESION 2-4 PARING/CU 08487 BRAUDIS BRAUDIS TTING 5 JAM JAM BENIGN HYPERKERA TOTIC LESION 2-4 DEBRIDEME 25112 BRAUDIS BRAUDIS NT NAIL 5 JAM JAM ANY METHOD 6/> NONEMERG A0120 FEDERATED FEDERATED TRNSPRT: 5 MINI-BUS TRANSPORT TRANSPORT MTN ATION SER ATION SER AREA/OTH SYS RADIOLOGI 52668 YOVANY PEDROZA C EXAM 5 [facility] CHEST 2 INC INC VIEWS FRONTAL&L ATERAL RADEX HIP 33165 [place] BRITTNEY 5 MEDICAL ABDIRAHMAN UNILATERA IMAGING L ASS COMPLETE MINIMUM 2 VIEWS RADIOLOGI 31367 EXPRESS EXPRESS C 5 MOBILE MOBILE EXAMINATI DIAGNOSTI DIAGNOSTI ON FEMUR C SE C SE [address] PELVIS 42229 [place] MURILLO ALL W/O 5 MEDICAL CONTRAST IMAGING MATERIAL ASS RADIOLOGI 08763 M[place] BRITTNEY C 5 MEDICAL ABDIRAHMAN EXAMINATI IMAGING ON KNEE ASS 1/2 VIEWS DEBRIDEME 12566 BRAUDIS BRAUDIS NT NAIL 5 JAM JAM ANY METHOD 1-5 PARING/CU 32802 BRAUDIS BRAUDIS TTING 5 JAM JAM BENIGN HYPERKER[place] TOTIC LESION 2-4 [place] [address] [place] MURILLO ALL ABDOMEN & 5 MEDICAL PELVIS IMAGING W/O ASS CONTRAST MATERIAL MYOCARDIA 78707 [place] BRITTNEY L SPECT 5 MEDICAL ABDIRAHMAN MULTIPLE IMAGING STUDIES ASS CV STRS 22551 [facility] TST 5 PHYSICIAN XERS&/OR S GROUP RX CONT ECG W/O I&R CV STRS 80508 YOVANY NORRIS TST 5 [facility] XERS&/OR HOSPITAL RX CONT P ECG I&R ONLY NONEMERG A0120 FEDERATED FEDERATED TRNSPRT: 5 MINI-BUS TRANSPORT TRANSPORT [facility]/OT SYS NONEMERG A0120 FEDERATED FEDERATED TRNSPRT: 5 [facility]I-BUS TRANSPORT TRANSPORT [facility] RADIOLOGI 63910 [facility] 5 MEDICAL ERUM EXAMINATI IMAGING ON CHEST ASS SINGLE VIEW FRONTAL RADIOLOGI 52203 YOVANY PEDROZA C 5 [facility] EXAMINATI INC INC ON CHEST SINGLE VIEW FRONTAL ECG 67872 YOVANY ECHEVARRIA ROUTINE [address] [facility] W/LEAST P 12 LDS I&[place] [address] PSYCHIATRIC ABDOMEN & 5 MEDICAL ERUM PELVIS IMAGING W/O ASS CONTRAST MATERIAL RADIOLOGI 00056 [facility] 5 MEDICAL ERUM EXAMINATI IMAGING ON CHEST ASS SINGLE VIEW FRONTAL PARING/CU 46385 NOEMI FRANKLIN TTING 5 JAM JAM BENIGN HYPERKERA TOTIC LESION 2-4 RADIOLOGI 91003 [facility] EXAM 4 MEDICAL ERUM CHEST 2 IMAGING VIEWS ASS FRONTAL&L ATERAL RADIOLOGI 90802 EXPRESS EXPRESS C EXAM 4 MOBILE MOBILE CHEST 2 DIAGNOSTI DIAGNOSTI VIEWS C SE C SE FRONTAL&L ATERAL NONEMERG A0120 FEDERATED FEDERATED TRNSPRT: 4 TRANS MINI-BUS TRANSPORT [facility] AREA/OTH SYS ECG 69368 ALFARIS ALFARIS ROUTINE 4 [facility] MOH ECG W/LEAST 12 LDS I&R ONLY RADIOLOGI 45765 [place] BEINEKE C 4 MEDICAL ERUM EXAMINATI IMAGING ON CHEST ASS SINGLE VIEW FRONTAL RADIOLOGI 36367 [place] BRITTNEY C 4 MEDICAL ABDIRAHMAN EXAMINATI IMAGING ON CHEST ASS SINGLE VIEW FRONTAL NONEMERG A0120 FEDERATED FEDERATED TRNSPRT: 4 TRANS MINI-BUS TRANSPORT SERVBLUEG MTN ATION SER ROEL AREA/OTH SYS ECG 72744 JR NORRIS JR ROUTINE 4 DWI DWI ECG W/LEAST 12 LDS I&R ONLY RADIOLOGI 84199 [place] BRITTNEY C 4 MEDICAL ABDIRAHMAN EXAMINATI IMAGING ON CHEST ASS SINGLE VIEW FRONTAL CT THORAX 90797 [place] BRITTNEY W/O 4 MEDICAL ABDIRAHMAN CONTRAST IMAGING MATERIAL ASS NONEMERG A0120 FEDERATED FEDERATED TRNSPRT: 4 TRANS MINI-BUS TRANSPORT SERVBLUEG MTN ATION SER ROEL AREA/OTH SYS RADIOLOGI 23249 [facility] C 4 MEDICAL ABDIRAHMAN EXAMINATI IMAGING ON CHEST ASS SINGLE VIEW FRONTAL ECG 69430 ASHWIN CHRISTOPHER ROUTINE 4 III MAXIM III MAXIM ECG W/LEAST 12 LDS I&R ONLY NONEMERG A0120 FEDERATED FEDERATED TRNSPRT: 4 MINI-BUS TRANSPORT TRANSPORT MTN ATION SER ATION SER AREA/OTH SYS NONEMERG A0120 FEDERATED FEDERATED TRNSPRT: 4 [facility]-BUS TRANSPORT TRANSPORT MTN ATION SER ATION SER AREA/[place] [address] RASLAU RASLAU ANGIOGRAP 4 FLA FLA HY HEAD W/CONTRAS T/[place] [address] RASLAU RASLAU ANGIOGRAP 4 FLA FLA HY NECK W/CONTRAS T/NONCONT RAST CRITICAL 92120 CHIQUITA LYDIA CHIQUITA LYDIA CARE 4 ILL/INJUR ED PATIENT INIT 30-74 MIN PARING/CU 07133 NOEMI FRANKLIN TTING 4 JAM JAM BENIGN HYPERKERA TOTIC LESION 2-4 DEBRIDEME 35010 BRAUDIS BRAUDIS NT NAIL 4 JAM JAM ANY METHOD 6/> RADIOLOGI 92436 BRITTNEY BRITTNEY C EXAM 3 ABDIRAHMAN ABDIRAHMAN KNEE COMPLETE 4/MORE VIEWS ARTHROCEN 52250 PETTEY PETTEY TESIS 3 JAM JAM ASPIR&/IN J MAJOR JT/BURSA W/O US INJ J0702 PETTEY PETTEY BETAMETHA 3 JAM JAM SONE ACETATE & PHOSPHATE 3 MG NONEMERG A0120 LKLP CAC LKLP CAC TRNSPRT: 3 INC INC MINI-BUS REGION 11 REGION 11 MTN AREA/OTH SYS NONEMERG A0120 LKLP CAC LKLP CAC TRNSPRT: 3 INC INC MINI-BUS REGION 11 REGION 11 MTN AREA/OTH SYS ECG 70971 LISETTE KNOX ROUTINE 2 MAXIM MAXIM ECG W/LEAST 12 LDS I&R ONLY ECG 92061 YOVANY PEDROZA ROUTINE 2 [facility] ECG INC INC W/LEAST 12 LDS TRCG ONLY W/O I&R RADIOLOGI 75117 YOVANY PEDROZA C 2 [facility] EXAMINATI INC [place] [address] [place] BRITTNEY HEAD/BRAI 2 MEDICAL ABDIRAHMAN N W/O IMAGING CONTRAST ASS MATERIAL OBSERVATI 02889 SWATHI ECHEVARRIA ON CARE 2 [place] [address] [place] BRITTNEY MAXILLOFA 2 MEDICAL ABDIRAHMAN CIAL W/O IMAGING CONTRAST ASS MATERIAL RADIOLOGI 69462 [place] BRITTNEY C EXAM 2 MEDICAL ABDIRAHMAN CHEST 2 IMAGING VIEWS ASS FRONTAL&L ATERAL ECG 49903 LEYDI HOLLEY ROUTINE 2 EMERGENCY EMERGENCY ECG SERVICES SERVICES W/LEAST 12 LDS I&R ONLY ECG 60622 JR NORRIS JR ROUTINE 2 DWI DWI ECG W/LEAST 12 LDS I&R ONLY XTRNL ECG 09273 YOVANY PEDROZA & 48 HR 2 [facility] RECORDING INC INC EXTERNAL 38587 YOVANY PEDROZA ECG 2 [facility] SCANNING INC INC ANALYSIS REPORT XTRNL ECG 22593 HERNANDEZMIChey CLIFTONKEMIE 2 JR MAXIM JR MAXIM CONTINUOU S RHYTHM W/I&R UP TO 48 HRS RADIOLOGI 18600 YOVANY PEDROZA C 2 [facility] EXAMINATI INC INC ON CHEST SINGLE VIEW FRONTAL ECG 45090 TAWNY FUCHSEY ROUTINE 2 ANIRUDH ANIRUDH ECG W/LEAST 12 LDS I&R ONLY ECG 63769 YOVANY PEDROZA ROUTINE 2 [facility] ECG INC INC W/LEAST 12 LDS TRCG ONLY W/O I&R MYOCARDIA 22952 FALLUJI FALLUJI L SPECT 2 DENISE DENISE MULTIPLE STUDIES MYOCARDIA 92832 YOVANY PEDROZA L SPECT 2 [facility] MULTIPLE INC INC STUDIES NONEMERG A0120 LKLP LKLP TRNSPRT: [facility] ACTION ACTION ORN AREA/OTH SYS CV STRS 14172 [facility]OM[facility] RE[facility] TST 2 XERS&/OR RX CONT ECG W/O I&R CV STRS 96041 YOVANY PEDROZA TST 2 [facility] XERS&/OR INC INC RX CONT ECG TRCG ONLY CV STRS 42254 JR NORRIS JR TST 2 DWI DWI XERS&/OR RX CONT ECG I&R ONLY ECG 66020 SWATHI WALKERSON ROUTINE 2 LYDIA LYDIA ECG W/LEAST 12 LDS I&R ONLY ECG 47356 TAWNY HECTOR ROUTINE 2 ANIRUDH ANIRUDH ECG W/LEAST 12 LDS I&R ONLY NONEMERG A0120 LKLP LKLP TRNSPRT: 2 [facility] C[facility] ACTION ACTION MTN AREA/OTH SYS ECG 47513 LISETTE KNOX ROUTINE 2 MAXIM MAXIM ECG W/LEAST 12 LDS I&R ONLY RADIOLOGI 18964 DOYLE Guzmán 2 MEDICAL ABDIRAHMAN EXAMINATI IMAGING ON CHEST ASS SINGLE VIEW FRONTAL TRIMMING 82277 BRATANESHAS BRAUDIS NONDYSTRO 2 JAM JAM PHIC NAILS ANY NUMBER PARING/CU 28844 BRAUDIS BRAUDIS TTING 2 JAM JAM BENIGN HYPERKERA TOTIC LESION 2-4 TRIMMING 36242 NOEMI FRANKLIN NONDYSTRO 2 JAM JAM PHIC NAILS ANY NUMBER PARING/CU 79555 NOEMI FRANKLIN TTING 2 JAM JAM BENIGN HYPERKERA TOTIC LESION 2-4 BLOOD 62556 YOVANY PEDROZA COUNT 1 [facility] COMPLETE INC INC AUTO&[place] [address] YOVANY PEDROZA TROPONIN 1 [facility] QUANTITAT INC INC SALONI COMPREHEN 33291 YOVANY PEDROZA SIVE 1 [facility] METABOLIC INC INC PANEL RADIOLOGI 35031 [place] BRITTNEY C 1 MEDICAL ABDIRAHMAN EXAMINATI IMAGING ON CHEST ASS SINGLE VIEW FRONTAL CREATINE 36305 YOVANY PEDROZA KINASE MB 1 [facility] FRACTION INC INC ONLY CREATINE 39395 YOVANY PEDROZA KINASE 1 [facility] TOTAL INC INC ECG 24543 YOVANY PEDROZA ROUTINE 1 [facility] ECG INC INC W/LEAST 12 LDS TRCG ONLY W/O I&R ECG 92737 LEYDI CHRISTOPHER ROUTINE 1 EMERGENCY III MAXIM ECG SERVICES W/LEAST 12 LDS I&R ONLY URNLS DIP 22687 COMBINED COMBINED 1 PHYSICIAN PHYSICIAN STICK/TAB S LA S LA LET REAGENT AUTO MICROSCOP Y BLOOD 84763 YOVANY PEDROZA COUNT 1 [facility] COMPLETE INC INC AUTO&AUTO DIFRNTL WBC COMPREHEN 77298 YOVANY PEDROZA SIVE 1 [facility] METABOLIC INC INC PANEL RADIOLOGI 26715 [place] BRITTNEY C 1 MEDICAL ABDIRAHMAN EXAMINATI IMAGING ON CHEST ASS SINGLE VIEW FRONTAL PRESSURIZ 37150 YOVANY PEDROZA ED/NONPRE 1 [facility] SSURIZED INC INC INHALATIO N TREATMENT AMB A0427 RUBÉN [facility] SERVICE 1 AMBULANCE AMBULANCE ALS SERVICE SERVICE EMERGENCY [place] LEV[place] 1 [place] [address] YOVANY PEDROZA INFUSION 1 [facility] THERAPY/P INC INC ROPHYLAXI S /DX 1ST TO 1 HR THERAPEUT 67425 YOVANY PEDROZA IC 1 [facility] INJECTION INC INC IV PUSH EACH NEW DRUG GROUND A0425 [facility] 1 AMBULANCE AMBULANCE PER SERVICE SERVICE STATUTE MILE NONEMERGE A0100 [facility] COMMUNITY TRANSPORT ACTION ATION; TAXI DEBRIDEME 86996 [facility] OPEN 1 Y Y WOUND 20 [facility] SQ CM/< DEBRIDEME 70383 [facility] OPEN 1 Y Y WOUND 20 [facility] SQ CM/< DEBRIDEME 75139 [facility] OPEN 1 FOOT FOOT WOUND 20 PROFESSIO PROFESSIO SQ CM/< NALS NALS NONEMERGE A0100 [facility] COMMUNITY TRANSPORT ACTION ATION; TAXI RADEX 82630 CLAUDINE SANCHES JAM FOOT 1 MEDICAL COMPLETE SERV MINIMUM 3 FOUNDATIO VIEWS URNLS DIP 76609 COMBINED COMBINED 1 PHYSICIAN PHYSICIAN STICK/TAB S LA S LA LET REAGENT AUTO MICROSCOP Y NONEMERGE A0100 [facility] NCY 0 COMMUNITY TRANSPORT ACTION ATION; TAXI URNLS DIP 82161 COMBINED COMBINED 0 PHYSICIAN PHYSICIAN STICK/TAB S LA S LA LET REAGENT AUTO MICROSCOP Y URNLS DIP 11137 COMBINED COMBINED 0 PHYSICIAN PHYSICIAN STICK/TAB S LA S LA LET REAGENT AUTO MICROSCOP Y CULTURE 58234 COMBINED COMBINED BACTERIAL 0 PHYSICIAN PHYSICIAN S LA S LA QUANTTATI VE COLONY COUNT URINE GROUND A0425 [facility] MILEAGE 0 AMBULANCE AMBULANCE PER SERVICE SERVICE STATUTE MILE AMBULANCE A0429 [facility] SERVICE 0 AMBULANCE AMBULANCE BLS SERVICE SERVICE EMERGENCY TRANSPORT ORTHOPANT 39703 [facility], OGRAM 0 IMPLANT & ERIC R [facility] ECG 70206 YOVANY PEDROZA ROUTINE 0 [facility] ECG INC INC W/LEAST 12 LDS TRCG ONLY W/O I&R ECG 94354 YOVANY NORRIS, ROUTINE [address] [facility] W/LEAST PROF SERV 12 LDS I&R ONLY ECG 56833 YOVANY NORRIS, ROUTINE 0 [facility] W/LEAST PROF SERV 12 LDS I&R ONLY ECG 96127 YOVANY PEDROZA ROUTINE 0 [facility] ECG INC INC W/LEAST 12 LDS TRCG ONLY W/O I&R CREATINE 27412 YOVANY PEDROZA KINASE 0 [facility] TOTAL INC INC CREATINE 13541 YOVANY PDEROZA KINASE MB 0 [facility] FRACTION INC INC ONLY URNLS DIP 44042 YOVANY MCGRAWON 0 [facility] STICK/TAB INC INC [place] [address] YOVANY PEDROZA TROPONIN 0 [facility] QUANTITAT INC INC SALONI BLOOD 09479 YOVANY PEDROZA COUNT 0 [facility] COMPLETE INC INC AUTO&AUTO DIFRNTL WBC BASIC 76653 YOVANY PEDROZA METABOLIC 0 [facility] PANEL INC INC CALCIUM TOTAL AMBULANCE A0429 [facility] SERVICE 0 AMBULANCE AMBULANCE BLS SERVICE SERVICE EMERGENCY TRANSPORT GROUND A0425 [facility] MILEAGE 0 AMBULANCE AMBULANCE PER SERVICE SERVICE STATUTE MILE GROUND A0425 [facility] MILEAGE 0 AMBULANCE AMBULANCE PER SERVICE SERVICE STATUTE MILE AMBULANCE A0429 [facility] SERVICE 0 AMBULANCE AMBULANCE BLS SERVICE SERVICE EMERGENCY TRANSPORT RADEX ABD 18531 [place] BRITTNEY, COMPL 0 MEDICAL HAYLEY AQT ABD IMAGING W/S/E/D ASSOCIATE VIEWS 1 S VIEW CH COMPREHEN 53762 YOVANY PEDROZA SIVE 0 [facility] METABOLIC INC INC PANEL CREATINE 00602 YOVANY PEDROZA KINASE 0 [facility] TOTAL INC INC BLOOD 31236 YOVANY PEDROZA COUNT 0 [facility] COMPLETE INC INC AUTO&[place] [address] YOVANY PEDROZA TROPONIN 0 [facility] QUANTITAT INC INC SALONI CREATINE 35158 YOVANY PEDROZA KINASE MB 0 [facility] [place] [address] YOVANY PEDROZA AMYLASE 0 [facility] INC INC URNLS DIP 74077 YOVANY MCGRAWON 0 [facility] STICK/TAB INC INC [place] [address] YOVANYCAROLE PEDROZA LIPASE 0 [facility] INC INC ECG 54019 YOVANY PEDROZA ROUTINE 0 [facility] ECG INC INC W/LEAST 12 LDS TRCG ONLY W/O I&R ECG 78049 YOVANY LEACH ROUTINE 0 [facility] W/LEAST PROF SERV 12 LDS I&R ONLY DEBRIDEME 48686 ASHA BARYR NT SKIN [address] [place] [address] [facility] CARTAGENA, HEAD/BRAI 0 MEDICAL GABRIELLA P N W/O IMAGING CONTRAST ASSOCIATE MATERIAL S AMB A0427 [facility] SERVICE 0 AMBULANCE AMBULANCE ALS SERVICE SERVICE EMERGENCY TRANSPORT LEVEL 1 3D 89910 [facility] CARTAGENA, RENDERING 0 MEDICAL GABRIELLA P W/INTERP IMAGING & ASSOCIATE POSTPROCE S SS SUPERVISI ON GROUND A0425 [facility] MILEAGE 0 AMBULANCE AMBULANCE PER SERVICE SERVICE STATUTE MILE TRAVEL [address] MED 0 PHYSICIAN PHYSICIAN NEC LAB S LAB S LAB SPEC; PRORATD TRIP CHRG COLLECTIO 71067 COMBINED COMBINED N VENOUS 0 PHYSICIAN PHYSICIAN BLOOD S LAB S LAB VENIPUNCT URE BLOOD 00015 COMBINED COMBINED COUNT 0 PHYSICIAN PHYSICIAN COMPLETE S LAB S LAB AUTO&AUTO DIFRNTL WBC DEBRIDEME 34830 ASHA BARRY NT SKIN 0 [place] [address] YOVANY PEDROZA INFUSION 0 [facility] THERAPY/P INC INC ROPHYLAXI S /DX 1ST TO 1 HR THERAPEUT 21903 YOVANY PEDROZA IC 0 [facility] INJECTION INC INC IV PUSH EACH NEW DRUG HEPATIC 84609 YOVANY PEDROZA FUNCTION 0 [facility] PANEL INC INC AMB A0427 [facility] SERVICE 0 AMBULANCE AMBULANCE ALS SERVICE SERVICE EMERGENCY TRANSPORT LEVEL 1 3D 37242 DOYLE CARTAGENA, RENDERING 0 MEDICAL GABRIELLA P W/INTERP IMAGING & ASSOCIATE POSTPROCE [place] ECG 10967 LEYDI TAWNY, ROUTINE 0 EMERGENCY ALEX S ECG SERVICES W/LEAST 12 LDS ASSOCIATE I&R ONLY S ECG 66223 YOVANY PEDROZA ROUTINE 0 [facility] ECG INC INC W/LEAST 12 LDS TRCG ONLY W/O I&R CREATINE 30210 YOVANY PEDROZA KINASE MB 0 [facility] [place] [address] DOYLE BROWNLEY, HEAD/BRAI 0 MEDICAL GABRIELLA P N W/O IMAGING CONTRAST ASSOCIATE MATERIAL S BLOOD 38466 YOVANY MCGRAWON COUNT 0 [facility] COMPLETE INC INC AUTO&[place] [address] YOVANY PEDROZA TROPONIN 0 [facility] QUANTITAT INC INC SALONI CREATINE 69992 YOVANY PEDROZA KINASE 0 [facility] TOTAL INC INC BASIC 56647 YOVANY PEDROZA METABOLIC 0 [facility] PANEL INC INC CALCIUM TOTAL GROUND A0425 [facility] MILEAGE 0 AMBULANCE AMBULANCE PER SERVICE SERVICE STATUTE MILE GROUND A0425 [facility] MILEAGE 9 AMBULANCE AMBULANCE PER SERVICE SERVICE STATUTE MILE AMBULANCE A0429 [facility] SERVICE 9 AMBULANCE AMBULANCE BLS SERVICE SERVICE EMERGENCY TRANSPORT DUP-SCAN 09747 YOVANY PEDROZA XTR VEINS 9 [facility] INC INC UNILATERA L/LIMITED STUDY ECG 19221 [facility] ROUTINE 9 [facility] ECG W/LEAST 12 LDS TRCG ONLY W/O I&R ECG [address] [facility], ROUTINE 9 RADHA DMITRIY G ECG EMERGENCY W/LEAST PHYS INC 12 LDS I&R ONLY AMBULANCE A0429 JESSAMINE JESSAMINE SERVICE 9 CO CO BLS AMBULANCE AMBULANCE EMERGENCY TRANSPORT GROUND A0425 JESSAMINE JESSAMINE MILEAGE 9 CO CO PER AMBULANCE AMBULANCE STATUTE MILE IIV3 46186 CRIS LYNCH, VACCINE 9 GABI Boateng SPLIT VIRUS 0.5 ML DOSAGE IM USE ADMINISTR G0008 CRIS LYNCH, ATION OF 9 GABI [place] [address] [place] OSIEL, ABDOMEN 9 MEDICAL GABRIELLA P W/O IMAGING CONTRAST ASSOCIATE MATERIAL S 3D 48458 YOVANY PEDROZA RENDERING 9 [facility] INC INC W/INTERP& POSTPROC DIFF WORK STATION BASIC 95468 YOVANY PEDROZA METABOLIC 9 [facility] PANEL INC INC CALCIUM TOTAL BLOOD 05170 YOVANY PEDROZA COUNT 9 [facility] COMPLETE INC INC AUTO&AUTO DIFRNTL WBC CT PELVIS 18813 [place] OSIEL, W/O 9 MEDICAL GABRIELLA P CONTRAST IMAGING MATERIAL ASSOCIATE S URNLS DIP 80821 YOVANY PEDROZA 9 [facility] STICK/TAB INC INC LET REAGENT AUTO MICROSCOP Y GROUND A0425 [facility] MILEAGE 9 AMBULANCE AMBULANCE PER SERVICE SERVICE STATUTE MILE AMBULANCE A0429 [facility] SERVICE 9 AMBULANCE AMBULANCE BLS SERVICE SERVICE EMERGENCY TRANSPORT TRANS R0075 [facility] PRTBL 9 [facility] XRAY EQP&PERS GINETTE/NRS GINETTE-TRIP> 1 PT RADIOLOGI 01897 [facility] C 9 [facility] EXAMINATI ON KNEE 3 VIEWS SET-UP Q0092 [facility] PORTABLE 9 [facility] [employer] X-RAY EQUIPMENT URNLS DIP 69839 COMBINED COMBINED 9 PHYSICIAN PHYSICIAN STICK/TAB S LAB S LAB LET REAGENT AUTO MICROSCOP Y DEBRIDEME 05861 ASHA BARRY, NT SKIN 9 ANGY S ANGY S PARTIAL THICKNESS MRI LOWER 36335 BRITTNEY, BRITTNEY, EXTREM 9 HAYLEY HAYLEY OTH/THN JT W/O & [place] [address] COMBINED COMBINED UREA 9 PHYSICIAN PHYSICIAN NITROGEN S LAB S LAB QUANTITAT SALONI COLLECTIO 33232 COMBINED COMBINED N VENOUS 9 PHYSICIAN PHYSICIAN BLOOD S LAB S LAB VENIPUNCT URE TRAVEL [address] MED 9 PHYSICIAN PHYSICIAN NEC LAB S LAB S LAB SPEC; PRORATD TRIP CHRG CREATININ 50086 COMBINED COMBINED E BLOOD 9 PHYSICIAN PHYSICIAN S LAB S LAB DEBRIDEME 01188 ASHA BARRY, NT SKIN 9 ANGY S ANGY S PARTIAL THICKNESS DEBRIDEME 91560 ASHA BARRY, NT SKIN 9 ANGY S ANGY S PARTIAL THICKNESS DEBRIDEME 33340 ASHA BARRY, NT SKIN 9 ANGY S ANGY S PARTIAL THICKNESS RADIOLOGI 31867 ASHA BARRY, C 9 ANGY S ANGY S EXAMINATI ON FOOT 2 VIEWS SBSQ 99472 [facility], NURSING 9 GABI Boateng FACIL CARE/DAY MINOR COMPLJ 15 MIN ORTHOPANT 88727 [place] KARAN ESTRADA 8 FOR EDENILSON Guerrier ORAL&MAXI LLOFACIAL SURGERY ADMINISTR G0008 [facility], ATION OF 8 GABI Boateng INFLUENZA VIRUS VACCINE IIV3 79747 [facility], VACCINE 8 GABI Boateng SPLIT VIRUS 0.5 ML DOSAGE IM USE TRAVEL [address] MED 8 PHYSICIAN PHYSICIAN NEC LAB S LAB S LAB SPEC; PRORATD TRIP CHRG COLLECTIO 30468 COMBINED COMBINED N VENOUS 8 PHYSICIAN PHYSICIAN BLOOD S LAB S LAB VENIPUNCT URE BASIC 65456 COMBINED COMBINED METABOLIC 8 PHYSICIAN PHYSICIAN PANEL S LAB S LAB CALCIUM TOTAL BLOOD 02471 COMBINED COMBINED COUNT 8 PHYSICIAN PHYSICIAN COMPLETE S LAB S LAB AUTO&AUTO DIFRNTL WBC RADEX 88784 YOVANY PEDROZA WRIST 8 [facility] INC MINIMUM 3 VIEWS AMBULANCE A0429 [facility] SERVICE 8 AMBULANCE AMBULANCE BLS SERVICE SERVICE EMERGENCY TRANSPORT GROUND A0425 [facility] 8 AMBULANCE AMBULANCE PER SERVICE SERVICE STATUTE MILE SBSQ 95649 CRIS [facility]YN[facility], NURSING 8 GABI Boateng FACIL CARE/DAY MINOR COMPLJ 15 MIN SBSQ 41603 CRIS LYN[facility], NURSING 8 GABI Boateng FACIL CARE/DAY MINOR COMPLJ 15 MIN Encounters Encounter Start End Date Code Location Performer Type Date EMERGENCY 76043 KENA STEPHENSON DEPT 7 7 PHYSICIAN U VISIT S, PLLC HIGH SEVERITY& [facility] [place] [facility] T EMERGENCY 62290 KENA JAMES DEPT 7 7 PHYSICIAN VISIT S, PLLC HIGH SEVERITY& THREAT FUNCJ EMERGENCY 54502 YOVANY 7 7 [facility] T VISIT LOW/MODER SEVERITY EMERGENCY 02371 KENA HECTOR DEPT 7 7 PHYSICIAN VISIT S, PLLC HIGH SEVERITY& THREAT FUNCJ EMERGENCY 21146 YOVANY 7 7 [facility] T VISIT HIGH/URGE NT SEVERITY [facility]OSPITAL Y[facility]ANY - 7 7 [facility] 65565 KENA RUSSO DEPT 7 7 PHYSICIAN VISIT S, PLLC HIGH SEVERITY& THREAT FUNJ EMERGENCY 39814 YOVANY 7 7 [facility] T VISIT HIGH/URGE NT SEVERITY [facility]OSPITAL Y[facility]ANY - 7 7 [facility] 85188 [facility] 7 PHYSICIAN VISIT S, PLLC HIGH SEVERITY& [facility] YOVANY [facility] 53925 KENA STEPHENSON DEPT 7 7 PHYSICIAN U VISIT S, PLLC HIGH SEVERITY& [facility] 87127 KENA [facility] DEPT 6 6 PHYSICIAN BRITTANEY VISIT S, PLLC HIGH SEVERITY& THREAT FUN EMERGENCY [address] [facility] V[facility] MODERATE SEVERITY [facility] YOVANY - 6 6 [facility] T OFFICE 63959 [facility] CON[facility]AT 5 5 [place] REGGIE BOWLES PHYSICIAN NEW/ESTAB S ASSIST PATIENT 60 MIN [facility]OSPITAL Y[facility]ANY - 5 5 [facility] - 5 5 [facility] - 5 5 [facility] - 4 4 [facility] - 3 3 [facility] - 2 2 [facility] - 2 2 [facility] - 2 2 [facility] - 2 2 [facility] Y[facility] - 1 1 COMM[facility]ITY [facility] EM[facility]GENC[facility] 67979 LEYDI CHRISTOPHER DEPT 1 1 EMERGENCY III MAXIM VISIT SERVICES HIGH SEVERITY& THREAT FUN EMERGENCY 66554 YOVANY 1 1 [facility] T VISIT HIGH/URGE NT SEVERITY EMERGENCY 34869 YOVANY 1 1 [facility] T VISIT HIGH/URGE NT SEVERITY [facility]OSPITAL [facility] - 1 1 [facility] EM[facility] 66063 LEYDI CHRISTOPHER DEPT 1 1 EMERGENCY III MAXIM VISIT SERVICES HIGH SEVERITY& THREAT [facility] - [facility] 1 [facility] [id number] 1 FOOT FOOT T 30 PROFESSIO PROFESSIO MINUTES NALS NALS EMERGENCY 41310 LEYDI HECTOR, 0 0 EMERGENCY [facility] DEPARTMEN SERVICES T VISIT HIGH/URGE ASSOCIATE NT S SEVERITY [facility]OSPITAL [facility] - 0 0 [facility] T EMERGENCY 49526 [facility] 0 0 [facility] DEPART[facility] T VISIT LIMITED/M INOR PROB OFFICE [id number] [facility] OUTPATIEN 0 0 IMPLANT & ERIC R T NEW 20 ORAL [facility] SURGERY [facility] EMERGENCY 22003 YOVANY 0 0 [facility] DEPARTMEN INC T VISIT HIGH/URGE NT SEVERITY EMERGENCY 27599 LEYDI HECTOR, DEPT 0 0 EMERGENCY [place] VISIT SERVICES HIGH SEVERITY& ASSOCIATE THREAT S [facility] HOSPITAL YOVANY - 0 0 [facility] OUTPATIEN INC T EMERGENCY 87918 LEYDI HECTOR, DEPT 0 0 EMERGENCY [facility] VISIT SERVICES HIGH SEVERITY& ASSOCIATE THREAT S [facility] EMERGENCY 59795 YOVANY 0 0 [facility] DEPARTMEN INC T VISIT HIGH/URGE NT SEVERITY HOSPITAL [facility] - 0 0 [facility] T [facility] Y[facility] - 0 0 [facility] OUT[facility] INC T EMERGENCY 50872 LEYDI CHRISTOPHER DEPT 0 0 EMERGENCY III, VISIT SERVICES LUISANA HIGH SEVERITY& ASSOCIATE THREAT S [facility] EMERGENCY 11973 YOVANY 0 0 [facility] DEPART[facility] INC T VISIT MODERATE SEVERITY EMERGENCY 59793 YOVANY 0 0 [facility] DEPARTMEN INC T VISIT HIGH/URGE NT SEVERITY [facility]OSPITAL [facility] - 0 0 [facility] OUTPATI[facility] INC T EMERGENCY 73416 LEYDI HECTOR, DEPT 0 0 EMERGENCY [place] VISIT SERVICES HIGH SEVERITY& ASSOCIATE THREAT S [facility] OFFICE 55537 ASHA BARRY, OUTPATIEN 0 0 ANGY S ANGY S T VISIT 10 MINUTES HOSPITAL Y[facility] - 9 9 [facility] INC T EMERGENCY 46806 YOVANY 9 9 [facility] INC T VISIT LOW/MODER SEVERITY HOSPITAL [facility] - 9 9 HOSPITAL OUTPATIEN T EMERGENCY 63975 [facility] DEPT 9 9 HOSPITAL VISIT HIGH SEVERITY& THREAT FUNJ EMERGENCY [address] [facility], 9 9 [facility] T VISIT PHYS INC MODERATE SEVERITY EMERGENCY 20688 YOVANY 9 9 [facility] DEPARTMEN INC T VISIT HIGH/URGE NT SEVERITY HOSPITAL Y[facility] - 9 9 [facility] INC T EMERGENCY 17745 LEYDI HECTOR, DEPT 9 9 EMERGENCY [facility]LEX S VISIT SERVICES HIGH SEVERITY& ASSOCIATE THREAT S FUN OFFICE 45606 ASHA BARRY OUTPATIEN 9 9 ANGY S ANGY S T VISIT 10 MINUTES OFFICE 05632 ASHA BARRY OUTPATIEN 9 9 ANGY S ANGY S T VISIT 10 MINUTES OFFICE 17425 ASHA BARRY OUTPATIEN 9 9 ANGY S ANGY S T NEW 30 MINUTES OFFICE 80685 [place] JUSTIN ESTRADA 8 8 FOR EDENILSON E T NEW 10 ORAL&MAXI MINUTES LLOFACIAL SURGERY [facility] YOVANY - 8 8 [facility] OUTPATIEN INC T EMERGENCY 65218 YOVANY 8 8 [facility] DEPARTMEN INC T VISIT MODERATE SEVERITY
--- OUTSIDE RECORDS SUMMARY | 2017-08-23 20:06 | External Medical Summary Rpt | CCD ---
Author Author , [facility] Organization [employer] Address Unknown Phone [email or web address] Team Providers Care Contract Writer Name Role Phone ALFARIS MOH, ALFARIS Unavailable [...] JAM BRAUDIS JAM, BRAUDIS Unavailable Unavailable JAM [facility] Unavailable Unavailable SERVICE, [facility] Unavailable Unavailable SERVICE, [facility], [facility] Unavailable Unavailable [facility] Unavailable [...] ANIRUDH ALEX HECTOR, Unavailable Unavailable ALEX HECTOR [facility] Unavailable Unavailable INC, [facility] Unavailable Unavailable [facility]PITAL P, [facility], Unavailable Unavailable [facility] DMITRIY TREVIZO, Unavailable Unavailable DMITRIY TREVIZO [facility]BER Unavailable Unavailable [facility] Unavailable Unavailable [facility], [facility] MANDY REGGIE, MANDY Unavailable Unavailable REGGIE [facility] Unavailable Unavailable [facility], [facility] Unavailable Unavailable [facility], [facility] Un[facility] Unavailable IMAGING [facility], [facility] Un[facility], [facility] JR JR DWI, JR Unavailable Unavailable JR DWI JR JR DWI, JR Unavailable Unavailable JR DWI JR, SHIRA E, Unavailable Unavailable JR, SHIRA E [facility] Unavailable Unavailable 11, [facility] 11 [facility] Unavailable [facility]available ACTION, [facility] Unavailable Unavailable SERVICES, [facility] MCKEMIE MAXIM, Unavailable Unavailable ETIENNEKEMIE MAXIM HANY DANIEL MAXIM, Unavailable Unavailable HANY DANIEL MAXIM HANY DANIEL LUISANA Unavailable Unavailable F, LUISANA LEACH JR F ERIC GILLETTE, Unavailable Unavailable ERIC GILLETTE R [facility] Un[facility] Un[facility], [facility] GABRIELLA CARTAGENA, Unavailable Unavailable GABRIELLA CARTAGENA [facility], [...] [facility] CASTILLO, Unavailable Unavailable CASTILLO [facility], Unavailable Unavailable [facility] SHALA, SHALA Unavailable Unavailable [facility] Unavailable Unavailable ASSIST, [facility] , Unavailable Unavailable WEHRMAN III MAXIM, Unavailable Unavailable WEHRMAN III [...] [facility], PLL R079 CHEST PAIN 06-08-2017 [facility] UNSPECIFIED AMBULANCE SERVICE K219 GASTRO-ESOP 04-26-2017 [facility] DISEASE INC WITHOUT ESOPHAGITIS Z720 TOBACCO USE 04-26-2017 [facility] INC R918 OTHER 04-08-2017 [facility] NONSPECIFIC MEDICAL ABNORMAL IMAGING ASS FINDING OF LUNG FIELD [id number] OTHER LONG 04-08-2017 [facility] DRUG [facility]ERAPY D649 ANEMIA 03-12-2017 [facility] UNSPECIFIED PHYSICIANS LA I498 OTHER 02-22-2017 [facility] SPECIFIED AMBULANCE CARDIAC SERVICE ARRHYTHMIAS J9811 ATELECTASIS 02-22-2017 [facility] I208 OTHER FORMS 01-21-2017 [facility] OF ANGINA PHYSICIANS PECTORIS GROUP R0602 SHORTNESS 01-21-2017 [facility] OF BREATH PHYSICIANS GROUP R069 UNSPECIFIED 01-21-2017 [facility] PHYSICIANS ABNORMALITI GROUP ES OF BREATHING R251 TREMOR 01-17-2017 [facility] UNSPECIFIED PHYSICIANS, [facility] R4182 ALTERED 01-17-2017 [facility] MENTAL AMBULANCE STATUS SERVICE UNSPECIFIED I209 ANGINA 01-13-2017 [facility] PECTORIS [facility] UNSPECIFIED INC R0600 DYSPNEA 01-13-2017 [facility] UNSPECIFIED [facility] INC B54114 PAIN IN 07-23-2016 [facility] RIGHT FOOT MOBILE DIAGNOSTIC SE E876 HYPOKALEMIA 07-05-2016 [facility], PLL[facility] K209 ESOPHAGITIS 07-05-2016 [facility] UNSPECIFIED INC K5900 CONSTIPATIO 07-05-2016 [facility] N PHYSICIANS, UNSPECIFIED PLL N200 CALCULUS OF 07-05-2016 [facility] R1084 GENERALIZED 07-05-2016 [facility] ABDOMINAL MEDICAL PAIN IMAGING ASS R1110 VOMITING 07-05-2016 [facility] UNSPECIFIED MEDICAL IMAGING ASS R112 NAUSEA WITH 07-05-2016 [facility] VOMITING PHYSICIANS, UNSPECIFIED [facility] B351 TINEA 05-28-2016 BRAUDIS JAM UNGUIUM G81301 UNS 05-28-2016 BRAUDIS JAM 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 B69024 PAIN IN 05-28-2016 BRAUDIS JAM RIGHT TOES U80609 PAIN IN 05-28-2016 BRAUDIS JAM LEFT TOES J189 PNEUMONIA 05-01-2016 [facility] UNSPECIFIED MEDICAL ORGANISM IMAGING ASS J984 OTHER 05-01-2016 [facility] DISORDERS MEDICAL OF LUNG IMAGING ASS K210 GASTRO-ESOP 05-01-2016 [facility] P DISEASE W/ ESOPHAGITIS R05 COUGH 05-01-2016 [facility] R1010 UPPER 05-01-2016 [facility] PAIN SERVICE UNSPECIFIED R109 UNSPECIFIED 10-24-2015 [facility] PAIN ASSIST R69 ILLNESS 10-24-2015 [facility] UNSPECIFIED TRANSPORTAT ION SER Z791 NURSING HOME 10-24-2015 [facility] [place] [facility] NON-STEROID ASSIST AL&ANTI-INF LAMMATORIES J219 ACUTE 10-09-2015 [facility] BRONCHIOLIT [facility] IS INC UNSPECIFIED J441 CHRONIC 10-09-2015 [place] [facility]STRU[facility] PULMONARY INC DZ W/EXACERBAT ION E119 TYPE 2 08-22-2015 EXPRESS DIABETES MOBILE MELLITUS DIAGNOSTIC WITHOUT SE COMPLICATIO NS O20685 PAIN IN 08-22-2015 [facility] LEFT HIP MEDICAL IMAGING ASS X26496 PAIN IN 08-22-2015 [facility] LEFT KNEE MEDICAL IMAGING ASS O46032 PAIN IN 08-22-2015 [facility] LEFT THIGH MEDICAL IMAGING ASS S15794Z UNSPECIFIED 08-22-2015 EXPRESS INJURY MOBILE LEFT HIP DIAGNOSTIC INITIAL SE ENCOUNTER L851 ACQ 08-21-2015 NOEMI MORENO KERATOSIS KERATODERMA PALMARIS ET PLANTARIS 18051 ABDOMINAL 05-30-2015 [facility] PAIN, MEDICAL EPIGASTRIC IMAGING ASS 94520 OTHER 05-21-2015 [facility] DYSPNEA AND MEDICAL IMAG[place] [address] CHEST PAIN 05-21-2015 [facility] UNSPECIFIED MEDICAL IMAGING ASS 57882 05-21-2015 [facility] TRANSPORTAT ION SER 5180 PULMONARY 05-07-2015 [facility] COLLAPSE [facility]ICAL IM[facility]ING ASS 4019 UNSPECIFIED 04-06-2015 [facility] P N 51717 DIVERTICULO 03-25-2015 [facility] SIS OF MEDICAL COLON IMAGING ASS 1101 DERMATOPHYT 11-27-2014 NOEMI MORENO OSIS OF NAIL 69962 ATHEROSCLER 11-27-2014 NOEMI MORENO OSIS 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 EXTREMITIES UNSPEC 7011 ACQUIRED 11-27-2014 NOEMI MORENO KERATODERMA 7295 PAIN IN 11-27-2014 NOEMI MORENO SOFT TISSUES OF LIMB 7862 COUGH 08-16-2014 [facility] 41861 NONSPEC 08-09-2014 [facility] REACT MOBILE TUBERCULIN DIAGNOSTIC SKIN TEST SE W/O ACTIVE TB 515 POSTINFLAMM 06-05-2014 [facility] ATORY MEDICAL PULMONARY IMAGING ASS FIBROSIS 7851 PALPITATION 06-05-2014 [facility] S MEDICAL [facility] ASS 496 CHRONIC 05-27-2014 [facility] AIRWAY MEDICAL OBSTRUCTION IMAGING ASS NEC 6101 DIFFUSE 05-03-2014 [facility] MASTOPATHY PHYS 86517 MASTODYNIA 05-03-2014 JR JR DWI 4928 OTHER 04-25-2014 [facility] EMPHYSEMA [facility]ICAL IMAGING ASS 7866 SWELLING, 04-25-2014 [facility] [place] LUMP IN INC CHEST 71050 OTHER 04-25-2014 [facility] NONSPECIFIC MEDICAL ABNORMAL IMAGING ASS FINDING OF LUNG FIELD 2768 HYPOPOTASSE 04-05-2014 WEHRMAN III PEG MAXIM 45635 TRANSIENT 02-17-2014 [facility] FLA VISUAL LOSS 86605 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 83353 PSYCHOPHYSI 02-16-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 LYDIA MANSI VISUAL DISTURBANCE S 51549 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-16-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 LYDIA CEREBRAL ARTERY OCCLUSION W/INFARCT 71570 OSTEOARTHRO 09-02-2013 PETTEY JAM SIS UNSPEC WHETHER GEN/LOC LOWER LEG 66229 PAIN IN 09-02-2013 [facility] JOINT, [facility] LOWER LEG INC 4660 ACUTE 10-22-2012 JR JR BRONCHITIS DWI 490 BRONCHITIS 10-22-2012 LISETTE MAXIM NOT SPECIFIED ACUTE OR CHRONIC 7802 SYNCOPE AND 08-04-2012 [facility] COLLAPSE [facility] ASS 02881 OTHER CHEST 08-03-2012 [facility] LYDIA PAIN 2749 GOUT, 06-25-2012 [facility] LYDIA UNSPECIFIED 46956 SHORTNESS 06-25-2012 [facility]ESS[facility] LYDIA OF BREATH 4111 INTERMEDIAT 05-28-2012 LISETTE MAXIM E CORONARY SYNDROME 4139 OTHER AND 05-28-2012 HANY DANIEL UNSPECIFIED MAXIM ANGINA PECTORIS 52246 OTHER 05-28-2012 [facility] DISEASES OF MEDICAL LUNG NOT IMAGING ASS ELSEWHERE CLASSIFIED 5990 URINARY 03-12-2011 [facility] TRACT [facility]YSICIANS INFECTION LA SITE NOT SPECIFIED 73544 OTHER 03-12-2011 [facility] ABNORMAL PHYSICIANS GLUCOSE LA 9597 INJURY 03-12-2011 [facility] OTHER&UNSPE PHYSICIANS CIFIED KNEE LA LEG ANKLE&FOOT 5589 OTH&UNSPEC 02-05-2011 [facility] NONINFECTIO [facility] US INC GASTROENTER ITIS&COLITI S 19500 OTHER 02-05-2011 [facility] MALAISE AND AMBULANCE FATIGUE SERVICE 21366 NAUSEA WITH 02-05-2011 [facility] 06061 DIARRHEA 02-05-2011 [facility] V5869 LONG-TERM 02-05-2011 [facility] (CURRENT) [facility] USE OF INC OTHER MEDICATIONS 700 CORNS AND 01-27-2011 [facility] 8930 OPEN WOUND 01-06-2011 [facility] MENTION COMPLICATIO N 7350 HALLUX 12-16-2010 [facility] FOUNDATIO 7354 OTHER 12-16-2010 [facility] HAMMER TOE FOOT PROFESSIONA LS 8931 OPEN WOUND 12-16-2010 [facility] [address] HEAD 04-03-2010 [facility] INJURY, AMBULANCE UNSPECIFIED SERVICE 920 CONTUSION 04-02-2010 [facility] EYE E8889 UNSPECIFIED 04-02-2010 [facility] 5210 DENTAL 03-04-2010 [facility] 7245 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-15-2010 [facility] BACKACHE AMBULANCE SERVICE 24587 ABDOMINAL 01-31-2010 [facility] PAIN, MEDICAL UNSPECIFIED IMAGING SITE ASSOCIATES 43620 ABDOMINAL 01-31-2010 [facility] PAIN, AMBULANCE GENERALIZED SERVICE 20454 ULCER OF 01-30-2010 [facility] ANGY OTHER PART OF FOOT 01347 UNSPECIFIED 01-26-2010 [facility]O [facility] 7804 DIZZINESS 01-26-2010 [facility] AND MEDICAL GIDDINESS IMAGING ASSOCIATES 7840 HEADACHE 01-26-2010 [facility] AMBULANCE SERVICE 4619 ACUTE 12-02-2009 [facility] SINUSITIS, [facility] PROF SERV 61581 POISONING 09-21-2009 [facility] N EMERGENCY AND RELATED PHYS INC NARCOTICS OTHER V0481 NEED 09-17-2009 [facility] LYNCHACTCandy Guzmán VACCINATION &INOCULATIO N FLU 53202 HEMATURIA 07-27-2009 [facility] UNSPECIFIED AMBULANCE SERVICE 00144 ABDOMINAL 07-27-2009 [facility] PA[facility] OTHER EMERGENCY SPECIFIED SERVICES SITE ASSOCIATES 25004 PAIN IN 04-19-2009 BRITTNEY, JOINT, [facility] ANKLE AND FOOT 6829 CELLULITIS 02-23-2009 CRIS, AND ABSCESS GABI Boateng OF UNSPECIFIED SITE 5253 RETAINED 10-18-2008 [facility] DENTAL [facility] OFACIAL SURGERY 95292 PAIN IN 07-15-2008 [facility] JOINT, AMBULANCE FOREARM SERVICE 11199 SPRAIN AND 07-15-2008 [facility] STRAIN OF MEDICAL UNSPECIFIED IMAGING SITE OF ASSOCIATES WRIST E8497 PLACE OF 07-15-2008 [facility] OCCURRENCE [facility]ICAL RESIDENTIAL IMAGING ASSOC[facility]ATES INSTITUTION E927 OVEREXERTIO 07-15-2008 [facility] N&STRENUOUS MEDICAL &REPETITIVE IMAGING ASSOCIATES MVMNTS/LOAD S 72191 OSTEOARTHRO 06-23-2008 Agusto LYNCH INVLV MX GABI [...] CY CA PS UL E AL 00 09 10 10 5 00 ME [...] 80 7- 1- 00 14 CA ve AL 01 20 20 72 RE AM 00 [...] MG CY CA PS UL E AL 59 07 08 28 7 00 ME [...] 30 2- 4- 00 14 CA ve WI 31 20 20 58 RE DE 10 [...] 80 7- 8- 00 14 CA ve AL 01 20 20 53 RE AM 00 [...] AR MA MG CY TA BL ET AL 59 06 07 28 7 00 ME [...] 80 8- 7- 00 14 CA ve AL 01 20 20 35 RE AM 00 [...] 20 2- 2- 00 14 CA ve AL 00 20 20 18 RE AM 60 [...] 20 4- 5- 00 14 CA ve AL 00 20 20 04 RE AM 60 [...] 20 7- 7- 00 13 CA ve AL 00 20 20 90 RE AM 60 [...] 20 7- 0- 00 13 CA ve AL 00 20 20 76 RE AM 60 [...] 80 0- 7- 00 13 CA ve AL 01 20 20 62 RE AM 00 [...] 80 1- 3- 00 13 CA ve AL 01 20 20 47 RE AM 00 [...] 00 1. 1 ME 36 AR Ac AL 78 -1 -0 00 D 71 NO [...] PLLC D/T ACTIVE DX HYPERTENS ION ECG 95802 [facility] STEPHENSON ROUTINE 7 PHYSICIAN U ECG S, PLLC W/LEAST 12 LDS I&R ONLY GROUND A0425 [facility] MILEAGE 7 AMBULANCE AMBULANCE PER SERVICE SERVICE STATUTE MILE AMB A0427 [facility] SERVICE 7 AMBULANCE AMBULANCE ALS SERVICE SERVICE EMERGENCY TRANSPORT LEVEL 1 ECG 77780 KENA JAMES ROUTINE 7 PHYSICIAN ECG S, PLLC W/LEAST 12 LDS I&R ONLY ECG 44186 [facility] PEDROZA ROUTINE 7 [facility] ECG INC INC W/LEAST 12 LDS TRCG ONLY W/O I&R COLLECTIO 86280 [facility] PEDROZA N VENOUS 7 [facility] BLOOD INC INC VENIPUNCT URE PATIENT G9744 KENA JAMES NOT 7 PHYSICIAN ELIGIBLE S, PLLC D/T ACTIVE DX HYPERTENS ION RADIOLOGI 35255 [facility] PEDROZA C 7 [facility] EXAMINATI INC INC [place] [address] Y[facility] PEDROZA TROPONIN 7 [facility] QUANTITAT INC INC SALONI BLOOD 97906 Y[facility] PEDROZA COUNT 7 [facility] COMPLETE INC INC AUTO&AUTO DIFRNTL WBC COMPREHEN 56217 [facility] PEDROZA SIVE 7 [facility] METABOLIC INC INC PANEL COMPREHEN 16903 [facility] PEDROZA SIVE 7 [facility] [place] [address] Y[facility]ANY PEDROZA TROPONIN 7 [facility] QUANTITAT INC INC SALONI BLOOD 70668 Y[facility]ANY YOVANY COUNT 7 [facility] COMPLETE INC INC AUTO&AUTO DIFRNTL WBC RADIOLOGI 55233 [facility] MURILLO C 7 MEDICAL EXAMINATI IMAGING ON CHEST ASS SINGLE VIEW FRONTAL CREATINE 10846 Y[facility] PEDROZA KINASE MB 7 [facility] FRACTION INC INC ONLY ECG 28724 [facility] PEDROZA ROUTINE 7 [facility] ECG INC INC W/LEAST 12 LDS TRCG ONLY W/O I&R CREATINE 17656 [facility] PEDROZA KINASE 7 [facility] TOTAL INC INC ECG 83609 KENA HECTOR ROUTINE 7 PHYSICIAN ECG S, PLLC W/LEAST 12 LDS I&R ONLY AMB A0427 [facility] SERVICE 7 AMBULANCE AMBULANCE ALS SERVICE SERVICE EMERGENCY TRANSPORT LEVEL 1 GROUND A0425 [facility] MILEAGE 7 AMBULANCE AMBULANCE PER SERVICE SERVICE STATUTE MILE TRAVEL [address] MED 7 PHYSICIAN PHYSICIAN NEC LAB S LA S LA SPEC; PRORATD TRIP CHRG BASIC 81333 COMBINED COMBINED METABOLIC 7 PHYSICIAN PHYSICIAN PANEL S LA S LA CALCIUM TOTAL COLLECTIO 66708 COMBINED COMBINED N VENOUS 7 PHYSICIAN PHYSICIAN B[place] [address] Y[facility] PEDROZA TROPONIN 7 [facility] [place] [address] Y[facility] PEDROZA TROPONIN 7 [facility] QUANTITAT INC INC SALONI BLOOD 21795 [facility] PEDROZA COUNT 7 [facility] COMPLETE INC INC AUTO&AUTO DIFRNTL WBC COMPREHEN 63556 YOVANY SHALA SIVE 7 [facility] [place] [address] YOVANY PEDROZA AMYLASE 7 [facility] INC INC CREATINE 76304 YOVANY MARIANO KINASE MB 7 [facility] FRACTION INC ONLY RADIOLOGI 02298 KENA PARKER C 7 PHYSICIAN EXAMINATI S, PLLC ON CHEST SINGLE VIEW FRONTAL RADIOLOGI 77011 [facility] EXAM 7 MEDICAL MEDICAL CHEST 2 IMAGING IMAGING VIEWS ASS ASS FRONTAL&L ATERAL ECG 65265 YOVANY ECHEVARRIA ROUTINE 7 [facility] W/LEAST P 12 LDS I&R ONLY ECG 32103 Y[facility] PEDROZA ROUTINE 7 [facility] ECG INC INC W/LEAST 12 LDS TRCG ONLY W/O I&R CREATINE 23683 Y[facility]ANY KIMBLES KINASE 7 [place] [address] YOVANY PEDROZA LIPASE 7 [facility] INC INC GROUND A0425 [facility] 7 AMBULANCE AMBULANCE PER SERVICE SERVICE STATUTE MILE AMB A0427 [facility] SERVICE 7 AMBULANCE AMBULANCE ALS SERVICE SERVICE EMERGENCY TRANSPORT LEVEL 1 CV STRS 70527 [facility] COOK TST 7 PHYSICIAN XERS&/OR S GROUP RX CONT ECG W/O I&R MYOCARDIA 03519 [facility] SRIVASTAV L SPECT 7 PHYSICIAN A MULTIPLE S GROUP STUDIES ECG 29554 [facility] ROUTINE 7 PHYSICIAN ECG S, PLLC W/LEAST 12 LDS I&R ONLY AMB A0427 [facility] SERVICE 7 AMBULANCE AMBULANCE ALS SERVICE SERVICE EMERGENCY TRANSPORT LEVEL 1 GROUND A0425 [facility] 7 AMBULANCE AMBULANCE PER SERVICE SERVICE STATUTE MILE ECG 26895 YOVANY PEDROZA ROUTINE 7 [facility] ECG INC INC W/LEAST 12 LDS TRCG ONLY W/O I&R AMB A0427 [facility] SERVICE 7 AMBULANCE AMBULANCE ALS SERVICE SERVICE EMERGENCY TRANSPORT LEVEL 1 ECG 03625 Y[facility] ECHEVARRIA ROUTINE 7 [facility] W/LEAST P 12 LDS I&R ONLY CT THORAX 30862 [facility] MURILLO 7 MEDICAL W/CONTRAS IMAGING T ASS MATERIAL RADIOLOGI 07015 [facility] CHIDI Guzmán 7 MEDICAL EXAMINATI IMAGING ON CHEST ASS SINGLE VIEW FRONTAL GROUND A0425 [facility] 7 AMBULANCE AMBULANCE PER SERVICE SERVICE STATUTE MILE COLLECTIO 94517 COMBINED COMBINED N VENOUS 7 PHYSICIAN PHYSICIAN BLOOD S LA S LA VENIPUNCT URE BASIC 16885 COMBINED COMBINED METABOLIC 7 PHYSICIAN PHYSICIAN PANEL S LA S LA CALCIUM TOTAL TRAVEL [address] MED 7 PHYSICIAN PHYSICIAN NEC LAB S LA S LA SPEC; PRORATD TRIP CHRG TRAVEL [address] MED 6 PHYSICIAN PHYSICIAN NEC LAB S LA S LA SPEC; PRORATD TRIP CHRG COLLECTIO 10258 COMBINED COMBINED N VENOUS 6 PHYSICIAN PHYSICIAN BLOOD S LA S LA VENIPUNCT URE COMPREHEN 54709 COMBINED COMBINED SIVE 6 PHYSICIAN PHYSICIAN METABOLIC S LA S LA PANEL BLOOD 92738 COMBINED COMBINED COUNT 6 PHYSICIAN PHYSICIAN COMPLETE S LA S LA AUTO&AUTO DIFRNTL WBC BLOOD 65345 COMBINED COMBINED COUNT 6 PHYSICIAN PHYSICIAN COMPLETE S LA S LA AUTO&AUTO DIFRNTL WBC COMPREHEN 34831 COMBINED COMBINED SIVE 6 PHYSICIAN PHYSICIAN METABOLIC S LA S LA PANEL COLLECTIO 42105 COMBINED COMBINED N VENOUS 6 PHYSICIAN PHYSICIAN BLOOD S LA S LA VENIPUNCT URE TRAVEL [address] MED 6 PHYSICIAN PHYSICIAN NEC LAB S LA S LA SPEC; PRORATD TRIP [facility] ECG 71190 YOVANY NORRIS JR ROUTINE 6 [facility] W/LEAST P 12 LDS I&R ONLY AMB A0427 [facility] SERVICE 6 AMBULANCE AMBULANCE ALS SERVICE SERVICE EMERGENCY TRANSPORT LEVEL 1 RADIOLOGI 13765 [facility] C 6 MEDICAL MEDICAL EXAMINATI IMAGING IMAGING ON CHEST ASS ASS SINGLE VIEW FRONTAL CT THORAX 45198 [facility] MURILLO ALL 6 MEDICAL W/CONTRAS IMAGING T ASS MATERIAL GROUND A0425 [facility] AMBULANCE AMBULANCE PER SERVICE SERVICE STATUTE MILE TRANS R0070 [facility] PRTBL 6 MOBILE MOBILE X-RAY DIAGNOSTI DIAGNOSTI EQP&PERS C SE C SE GINETTE/NRS GINETTE-TRIP 1 PT RADEX 64884 [facility] FOOT 6 MOBILE MOBILE COMPLETE DIAGNOSTI DIAGNOSTI MINIMUM 3 C SE C SE VIEWS SET-UP Q0092 [facility] PORTABLE 6 MOBILE MOBILE X-RAY DIAGNOSTI [place] [address] Y[facility] PEDROZA INFUSION 6 [facility] THERAPY/P INC INC ROPHYLAXI S /DX 1ST TO 1 HR THERAPEUT 54822 Y[facility] PEDROZA IC 6 [facility] INJECTION INC [place] [address] YOVANY PEDROZA INFUSION 6 [facility] THER INC INC PROPH ADDL SEQUENTIA L TO 1 HR URNLS DIP 39242 YOVANY YOVANY 6 [facility] STICK/TAB INC INC LET REAGENT AUTO MICROSCOP Y SUSCEPTIB 41554 YOVANY PEDROZA LTY STDY 6 [facility] ANTIMICRB INC INC IAL MICRO/AGA R DILUTJ CULTURE 79636 YOVANY PEDROZA BACTERIAL 6 [facility] INC INC QUANTTATI VE COLONY COUNT URINE CULTURE 75021 YOVANY PEDROZA BCT 6 [facility] ISOL&PRSM INC INC PTV ID ISOLATE EA URINE PATIENT G8784 KENA RENUSCH NOT 6 PHYSICIAN BRITTANEY IZAGUIRRE S, PLLC E.G. PT REFUSES URGENT/EM SIT RADIOLOGI 09434 YOVANY PEDROZA C 6 [facility] EXAMINATI INC INC [place] [address] YOVANY PEDROZA TROPONIN 6 [facility] QUANTITAT INC INC SALONI BLOOD 17686 YOVANY PEDROZA COUNT 6 [facility] COMPLETE INC INC AUTO&AUTO DIFRNTL WBC COMPREHEN 41032 YOVANY PEDROZA SIVE 6 [facility] METABOLIC INC INC PANEL 12-LEAD 3120F KENA RUSSO ECG 6 PHYSICIAN BRITTANEY PERFORMED S, PLLC ECG 73103 YOVANY NORRIS JR ROUTINE 6 [facility] W/LEAST P 12 LDS I&R ONLY ECG 37161 YOVANY PEDROZA ROUTINE 6 [facility] ECG INC INC W/LEAST 12 LDS TRCG ONLY W/O I&[place] [address] DOYLE MURILLO ALL ABDOMEN & 6 MEDICAL PELVIS IMAGING W/[place] [address] YOVANY PEDROZA LIPASE 6 [facility] INC INC GROUND A0425 [facility] MILEAGE 6 AMBULANCE AMBULANCE PER SERVICE SERVICE STATUTE MILE AMBULANCE A0429 [facility] SERVICE 6 AMBULANCE AMBULANCE BLS SERVICE SERVICE EMERGENCY TRANSPORT TRAVEL [address] MED 6 PHYSICIAN PHYSICIAN NEC LAB S LA S LA SPEC; PRORATD TRIP CHRG BASIC 32206 COMBINED COMBINED METABOLIC 6 PHYSICIAN PHYSICIAN PANEL S LA S LA CALCIUM TOTAL COLLECTIO 58569 COMBINED COMBINED N VENOUS 6 PHYSICIAN PHYSICIAN BLOOD S LA S LA VENIPUNCT URE DEBRIDEME 42519 NOEMI FRANKLIN NT NAIL 6 JAM JAM ANY METHOD 6/> PARING/CU 09167 NOEMI ULRICHS TTING 6 JAM JAM BENIGN HYPERKERA TOTIC LESION 2-4 BLOOD 00440 YOVANY PEDROZA OCCULT 6 [facility] PEROXIDAS INC INC E ACTV QUAL FECES 1-3 [place] [address] YOVANY PEDROZA TROPONIN 6 [facility] QUANTITAT INC INC SALONI BLOOD 75899 YOVANY PEDROZA COUNT 6 [facility] COMPLETE INC INC AUTO&AUTO DIFRNTL WBC COMPREHEN 36686 YOVANY PEDROZA SIVE 6 [facility] [place] [address] YOVANY PEDROZA AMYLASE 6 [facility] INC INC CREATINE 63838 YOVANY PEDROZA KINASE MB 6 [facility] FRACTION INC INC ONLY CREATINE 12855 YOVANY PEDROZA KINASE 6 [facility] [place] [address] YOVANY PEDROZA LIPASE 6 [facility] INC INC ECG 94271 YOVANY PEDROZA ROUTINE 6 [facility] ECG INC INC W/LEAST 12 LDS TRCG ONLY W/O I&R RADIOLOGI 24203 DOYLE LUGO C EXAM 6 MEDICAL ABDIRAHMAN CHEST 2 IMAGING VIEWS ASS FRONTAL&L ATERAL ECG 80048 YOVANY ECHEVARRIA ROUTINE 6 [facility] W/LEAST P 12 LDS I&R ONLY AMB A0427 [facility] SERVICE 6 AMBULANCE AMBULANCE ALS SERVICE SERVICE EMERGENCY TRANSPORT LEVEL 1 GROUND A0425 [facility] PER SERVICE SERVICE STATUTE MILE TRAVEL [address] MED 6 PHYSICIAN PHYSICIAN NEC LAB S LA S LA SPEC; PRORATD TRIP CHRG COLLECTIO 35149 COMBINED COMBINED N VENOUS 6 PHYSICIAN PHYSICIAN BLOOD S LA S LA VENIPUNCT URE BASIC 11846 COMBINED COMBINED METABOLIC 6 PHYSICIAN PHYSICIAN PANEL S LA S LA CALCIUM TOTAL BLOOD 43062 COMBINED COMBINED COUNT 6 PHYSICIAN PHYSICIAN COMPLETE S LA S LA AUTO&AUTO DIFRNTL WBC DEBRIDEME 19846 BRAUDIS BRAUDIS NT NAIL 6 JAM JAM ANY METHOD 1-5 TRIMMING 09596 BRAUDIS BRAUDIS NONDYSTRO 6 JAM JAM PHIC NAILS ANY NUMBER PARING/CU 96813 BRAUDIS BRAUDIS TTING 6 JAM JAM BENIGN HYPERKERA TOTIC LESION 2-4 PARING/CU 50810 BRAUDIS BRAUDIS TTING 5 JAM JAM BENIGN HYPERKERA TOTIC LESION 2-4 DEBRIDEME 24174 BRAUDIS BRAUDIS NT NAIL 5 JAM JAM ANY METHOD 6/> NONEMERG A0120 FEDERATED FEDERATED TRNSPRT: 5 MINI-BUS TRANSPORT TRANSPORT MTN ATION SER ATION SER AREA/OTH SYS RADIOLOGI 33975 YOVANY PEDROZA C EXAM 5 [facility] CHEST 2 INC INC VIEWS FRONTAL&L ATERAL RADEX HIP 79695 IDAHO BRITTNEY 5 MEDICAL ABDIRAHMAN UNILATERA IMAGING L ASS COMPLETE MINIMUM 2 VIEWS RADIOLOGI 39723 EXPRESS EXPRESS C 5 MOBILE MOBILE EXAMINATI DIAGNOSTI DIAGNOSTI ON FEMUR C SE C SE [address] PELVIS 53628 IDAHO MURILLO ALL W/O 5 MEDICAL CONTRAST IMAGING MATERIAL ASS RADIOLOGI 83138 IDAHO BRITTNEY C 5 MEDICAL ABDIRAHMAN EXAMINATI IMAGING ON KNEE ASS 1/2 VIEWS DEBRIDEME 30038 BRAUDIS BRAUDIS NT NAIL 5 JAM JAM ANY METHOD 1-5 PARING/CU 46147 BRAUDIS BRAUDIS TTING 5 JAM JAM BENIGN HYPERKERA TOTIC LESION 2-[place] [address] IDAHO MURILLO ALL ABDOMEN & 5 MEDICAL PELVIS IMAGING W/O ASS CONTRAST MATERIAL MYOCARDIA 76229 IDAHO RBITTNEY L SPECT 5 MEDICAL ABDIRAHMAN MULTIPLE IMAGING STUDIES ASS CV STRS 79850 [facility] TST 5 PHYSICIAN XERS&/OR S GROUP RX CONT ECG W/O I&R CV STRS 00491 YOVANY NORRIS TST 5 [facility] XERS&/OR HOSPITAL RX CONT P ECG I&R ONLY NONEMERG A0120 FEDERATED FEDERATED TRNSPRT: 5 MINI-BUS TRANSPORT TRANSPORT [facility]/OT SYS NONEMERG A0120 FEDERATED FEDERATED TRNSPRT: 5 MINI-BUS TRANSPORT TRANSPORT [facility]/OT SYS RADIOLOGI 97399 [facility] 5 MEDICAL ERUM EXAMINATI IMAGING ON CHEST ASS SINGLE VIEW FRONTAL RADIOLOGI 22457 YOVANY PEDROZA C 5 [facility] EXAMINATI INC INC ON CHEST SINGLE VIEW FRONTAL ECG 18569 YOVANY ECHEVARRIA ROUTINE 5 [facility] W/LEAST P 12 LDS I&[place] [address] [facility] ABDOMEN & 5 MEDICAL ERUM PELVIS IMAGING W/O ASS CONTRAST MATERIAL RADIOLOGI 93446 [facility] 5 MEDICAL ERUM EXAMINATI IMAGING ON CHEST ASS SINGLE VIEW FRONTAL PARING/CU 50972 NOEMI FRANKLIN TTING 5 JAM JAM BENIGN HYPERKERA TOTIC LESION 2-4 RADIOLOGI 71921 [facility] EXAM 4 MEDICAL ERUM CHEST 2 IMAGING VIEWS ASS FRONTAL&L ATERAL RADIOLOGI 44689 EXPRESS EXPRESS C EXAM 4 MOBILE MOBILE CHEST 2 DIAGNOSTI DIAGNOSTI VIEWS C SE C SE FRONTAL&L ATERAL NONEMERG A0120 FEDERATED FEDERATED TRNSPRT: 4 TRANS MINI-BUS TRANSPORT [facility] AREA/OTH SYS ECG 00455 ALFARIS ALFARIS ROUTINE 4 [facility] MOH ECG W/LEAST 12 LDS I&R ONLY RADIOLOGI 41049 IDAHO BEINEKE C 4 MEDICAL ERUM EXAMINATI IMAGING ON CHEST ASS SINGLE VIEW FRONTAL RADIOLOGI 25783 IDAHO BRITTNEY C 4 MEDICAL ABDIRAHMAN EXAMINATI IMAGING ON CHEST ASS SINGLE VIEW FRONTAL NONEMERG A0120 FEDERATED FEDERATED TRNSPRT: 4 TRANS MINI-BUS TRANSPORT SERVBLUEG MTN ATION SER ROEL AREA/OTH SYS ECG 44487 JR NORRIS JR ROUTINE 4 DWI DWI ECG W/LEAST 12 LDS I&R ONLY RADIOLOGI 66395 IDAHO BRITTNEY C 4 MEDICAL ABDIRAHMAN EXAMINATI IMAGING ON CHEST ASS SINGLE VIEW FRONTAL CT THORAX 15666 IDAHO BRITTNEY W/O 4 MEDICAL ABDIRAHMAN CONTRAST IMAGING MATERIAL ASS NONEMERG A0120 FEDERATED FEDERATED TRNSPRT: 4 TRANS MINI-BUS TRANSPORT SERVBLUEG MTN ATION SER ROEL AREA/OTH SYS RADIOLOGI 46033 [facility] C 4 MEDICAL ABDIRAHMAN EXAMINATI IMAGING ON CHEST ASS SINGLE VIEW FRONTAL ECG 31439 ASHWIN CHRISTOPHER ROUTINE 4 III MAXIM III MAXIM ECG W/LEAST 12 LDS I&R ONLY NONEMERG A0120 FEDERATED FEDERATED TRNSPRT: 4 MINI-BUS TRANSPORT TRANSPORT MTN ATION SER ATION SER AREA/OTH SYS NONEMERG A0120 FEDERATED FEDERATED TRNSPRT: 4 [facility] TRANSPORT TRANSPORT MTN ATION SER ATION SER AREA/[place] [address] RASLAU RASLAU ANGIOGRAP 4 FLA FLA HY HEAD W/CONTRAS T/[place] [address] RASLAU RASLAU ANGIOGRAP 4 FLA FLA HY NECK W/CONTRAS T/NONCONT RAST CRITICAL 09427 CHIQUITA LYDIA CHIQUITA LYDIA CARE 4 ILL/INJUR ED PATIENT INIT 30-74 MIN PARING/CU 14064 NOEMI FRANKLIN TTING 4 JAM JAM BENIGN HYPERKERA TOTIC LESION 2-4 DEBRIDEME 62399 BRAUDIS BRAUDIS NT NAIL 4 JAM JAM ANY METHOD 6/> RADIOLOGI 32957 RBITTNEY BRITTNEY C EXAM 3 ABDIRAHMAN ABDIRAHMAN KNEE COMPLETE 4/MORE VIEWS ARTHROCEN 64201 PETTEY PETTEY TESIS 3 JAM JAM ASPIR&/IN J MAJOR JT/BURSA W/O US INJ J0702 PETTEY PETTEY BETAMETHA 3 JAM JAM SONE ACETATE & PHOSPHATE 3 MG NONEMERG A0120 LKLP CAC LKLP CAC TRNSPRT: 3 INC INC MINI-BUS REGION 11 REGION 11 MTN AREA/OTH SYS NONEMERG A0120 LKLP CAC LKLP CAC TRNSPRT: 3 INC INC MINI-BUS REGION 11 REGION 11 MTN AREA/OTH SYS ECG 49045 LISETTE KNOX ROUTINE 2 MAXIM MAXIM ECG W/LEAST 12 LDS I&R ONLY ECG 29114 YOVANY PEDROZA ROUTINE 2 [facility] ECG INC INC W/LEAST 12 LDS TRCG ONLY W/O I&R RADIOLOGI 10875 YOVANY PEDROZA C 2 [facility] EXAMINATI INC [place] [address] IDAHO BRITTNEY HEAD/BRAI 2 MEDICAL ABDIRAHMAN N W/O IMAGING CONTRAST ASS MATERIAL OBSERVATI 43521 SWATHI ECHEVARRIA ON CARE 2 [place] [address] IDAHO BRITTNEY MAXILLOFA 2 MEDICAL ABDIRAHMAN CIAL W/O IMAGING CONTRAST ASS MATERIAL RADIOLOGI 17975 IDAHO BRITTNEY C EXAM 2 MEDICAL ABDIRAHMAN CHEST 2 IMAGING VIEWS ASS FRONTAL&L ATERAL ECG 77089 LEYDI HOLLEY ROUTINE 2 EMERGENCY EMERGENCY ECG SERVICES SERVICES W/LEAST 12 LDS I&R ONLY ECG 07150 JR NORRIS JR ROUTINE 2 DWI DWI ECG W/LEAST 12 LDS I&R ONLY XTRNL ECG 47656 YOVANY PEDROZA & 48 HR 2 [facility] RECORDING INC INC EXTERNAL 31159 YOVANY PEDROZA ECG 2 [facility] SCANNING INC INC ANALYSIS REPORT XTRNL ECG 27797 HERNANDEZMIChey CLIFTONKEMIE 2 JR MAXIM JR MAXIM CONTINUOU S RHYTHM W/I&R UP TO 48 HRS RADIOLOGI 99597 YOVANY PEDROZA C 2 [facility] EXAMINATI INC INC ON CHEST SINGLE VIEW FRONTAL ECG 46752 TAWNY FUCHSEY ROUTINE 2 ANIRUDH ANIRUDH ECG W/LEAST 12 LDS I&R ONLY ECG 09025 YOVANY PEDROZA ROUTINE 2 [facility] ECG INC INC W/LEAST 12 LDS TRCG ONLY W/O I&R MYOCARDIA 42670 FALLUJI FALLUJI L SPECT 2 DENISE DENISE MULTIPLE STUDIES MYOCARDIA 89721 YOVANY PEDROZA L SPECT 2 [facility] MULTIPLE INC INC STUDIES NONEMERG A0120 LKLP LKLP TRNSPRT: 2 [facility] MINI-BUS ACTION ACTION MNN AREA/OTH SYS CV STRS 08390 JEROMY RENAE [facility] TST 2 XERS&/OR RX CONT ECG W/O I&R CV STRS 74511 YOVANY PEDROZA TST 2 [facility] XERS&/OR INC INC RX CONT ECG TRCG ONLY CV STRS 56735 JR NORRIS JR TST 2 DWI DWI XERS&/OR RX CONT ECG I&R ONLY ECG 04461 SWATHI WALKERSON ROUTINE 2 LYDIA LYDIA ECG W/LEAST 12 LDS I&R ONLY ECG 71253 TAWNY HECTOR ROUTINE 2 ANIRUDH ANIRUDH ECG W/LEAST 12 LDS I&R ONLY NONEMERG A0120 LKLP LKLP TRNSPRT: 2 [facility] Secure-24-BUS ACTION ACTION MTN AREA/OTH SYS ECG 00275 LISETTE KNOX ROUTINE 2 MAXIM MAXIM ECG W/LEAST 12 LDS I&R ONLY RADIOLOGI 79896 DOYLE Guzmán 2 MEDICAL ABDIRAHMAN EXAMINATI IMAGING ON CHEST ASS SINGLE VIEW FRONTAL TRIMMING 19007 BRATANESHAS BRAUDIS NONDYSTRO 2 JAM JAM PHIC NAILS ANY NUMBER PARING/CU 60418 BRAUDIS BRAUDIS TTING 2 JAM JAM BENIGN HYPERKERA TOTIC LESION 2-4 TRIMMING 23707 NOEMI FRANKLIN NONDYSTRO 2 JAM JAM PHIC NAILS ANY NUMBER PARING/CU 24705 NOEMI FRANKLIN TTING 2 JAM JAM BENIGN HYPERKERA TOTIC LESION 2-4 BLOOD 29454 YOVANY PEDROZA COUNT 1 [facility] COMPLETE INC INC AUTO&[place] [address] YOVANY PEDROZA TROPONIN 1 [facility] QUANTITAT INC INC SALONI COMPREHEN 70125 YOVANY PEDROZA SIVE 1 [facility] METABOLIC INC INC PANEL RADIOLOGI 36831 IDAHO BRITTNEY C 1 MEDICAL ABDIRAHMAN EXAMINATI IMAGING ON CHEST ASS SINGLE VIEW FRONTAL CREATINE 18427 YOVANY PEDROZA KINASE MB 1 [facility] FRACTION INC INC ONLY CREATINE 86519 YOVANY PEDROZA KINASE 1 [facility] TOTAL INC INC ECG 48201 YOVANY PEDROZA ROUTINE 1 [facility] ECG INC INC W/LEAST 12 LDS TRCG ONLY W/O I&R ECG 57216 LEYDI CHRISTOPHER ROUTINE 1 EMERGENCY III MAXIM ECG SERVICES W/LEAST 12 LDS I&R ONLY URNLS DIP 15160 COMBINED COMBINED 1 PHYSICIAN PHYSICIAN STICK/TAB S LA S LA LET REAGENT AUTO MICROSCOP Y BLOOD 21231 YVOANY PEDROZA COUNT 1 [facility] COMPLETE INC INC AUTO&AUTO DIFRNTL WBC COMPREHEN 15051 YOVANY PEDROZA SIVE 1 [facility] METABOLIC INC INC PANEL RADIOLOGI 69145 IDAHO BRITTNEY C 1 MEDICAL ABDIRAHMAN EXAMINATI IMAGING ON CHEST ASS SINGLE VIEW FRONTAL PRESSURIZ 08999 YOVANY PEDROZA ED/NONPRE 1 [facility] SSURIZED INC INC INHALATIO N TREATMENT AMB A0427 [facility] SERVICE 1 AMBULANCE AMBULANCE ALS SERVICE SERVICE EMERGENCY [place]SP[place] LEV[place] 1 [place] [address] YOVANY PEDROZA INFUSION 1 [facility] THERAPY/P INC INC ROPHYLAXI S /DX 1ST TO 1 HR THERAPEUT 20088 YOVANY PEDROZA IC 1 [facility] INJECTION INC INC IV PUSH EACH NEW DRUG GROUND A0425 [facility] PER SERVICE SERVICE STATUTE MILE NONEMERGE A0100 [facility] 1 COMMUNITY TRANSPORT ACTION ATION; TAXI DEBRIDEME 72727 [facility] OPEN 1 Y Y WOUND 20 [facility] SQ CM/< DEBRIDEME 43530 [facility] OPEN 1 Y Y WOUND 20 [facility] SQ CM/< DEBRIDEME 60433 [facility] OPEN 1 FOOT FOOT WOUND 20 PROFESSIO PROFESSIO SQ CM/< NALS NALS NONEMERGE A0100 [facility] 1 COMMUNITY TRANSPORT ACTION ATION; TAXI RADEX 42148 CLAUDINE SANCHES JAM FOOT 1 MEDICAL COMPLETE SERV MINIMUM 3 FOUNDATIO VIEWS URNLS DIP 17567 COMBINED COMBINED 1 PHYSICIAN PHYSICIAN STICK/TAB S LA S LA LET REAGENT AUTO MICROSCOP Y NONEMERGE A0100 [facility] 0 COMMUNITY TRANSPORT ACTION ATION; TAXI URNLS DIP 13580 COMBINED COMBINED 0 PHYSICIAN PHYSICIAN STICK/TAB S LA S LA LET REAGENT AUTO MICROSCOP Y URNLS DIP 37567 COMBINED COMBINED 0 PHYSICIAN PHYSICIAN STICK/TAB S LA S LA LET REAGENT AUTO MICROSCOP Y CULTURE 05495 COMBINED COMBINED BACTERIAL 0 PHYSICIAN PHYSICIAN S LA S LA QUANTTATI VE COLONY COUNT URINE GROUND A0425 [facility] MILEAGE 0 AMBULANCE AMBULANCE PER SERVICE SERVICE STATUTE MILE AMBULANCE A0429 [facility] SERVICE 0 AMBULANCE AMBULANCE BLS SERVICE SERVICE EMERGENCY TRANSPORT ORTHOPANT 90868 THE LET[facility], OGRAM 0 IMPLANT & ERIC R [facility] ECG 38414 YOVANY PEDROZA ROUTINE 0 [facility] ECG INC INC W/LEAST 12 LDS TRCG ONLY W/O I&R ECG 16479 YOVANY NORRIS, ROUTINE 0 [facility] W/LEAST PROF SERV 12 LDS I&R ONLY ECG 03823 YOVANY NORRIS, ROUTINE 0 [facility] W/LEAST PROF SERV 12 LDS I&R ONLY ECG 32738 YOVANY PEDROZA ROUTINE 0 [facility] ECG INC INC W/LEAST 12 LDS TRCG ONLY W/O I&R CREATINE 93639 YOVANY PEDROZA KINASE 0 [facility] TOTAL INC INC CREATINE 50388 YOVANY PEDROZA KINASE MB 0 [facility] FRACTION INC INC ONLY URNLS DIP 10769 YOVANY MCGRAWON 0 [facility] STICK/TAB INC INC [place] [address] YOVANY PEDROZA TROPONIN 0 [facility] QUANTITAT INC INC SALONI BLOOD 52620 YOVANY PEDROZA COUNT 0 [facility] COMPLETE INC INC AUTO&AUTO DIFRNTL WBC BASIC 58761 YOVANY PEDROZA METABOLIC 0 [facility] PANEL INC INC CALCIUM TOTAL AMBULANCE A0429 [facility] SERVICE 0 AMBULANCE AMBULANCE BLS SERVICE SERVICE EMERGENCY TRANSPORT GROUND A0425 [facility] MILEAGE 0 AMBULANCE AMBULANCE PER SERVICE SERVICE STATUTE MILE GROUND A0425 [facility] MILEAGE 0 AMBULANCE AMBULANCE PER SERVICE SERVICE STATUTE MILE AMBULANCE A0429 [facility] SERVICE 0 AMBULANCE AMBULANCE BLS SERVICE SERVICE EMERGENCY [place] ABD 61807 IDAHO BRITTNEY, COMPL 0 MEDICAL HAYLEY AQT ABD IMAGING W/S/E/D ASSOCIATE VIEWS 1 S VIEW CH COMPREHEN 57678 YOVANY PEDROZA SIVE 0 [facility] METABOLIC INC INC PANEL CREATINE 16007 YOVANY PEDROZA KINASE 0 [facility] TOTAL INC INC BLOOD 63835 YOVANY PEDROZA COUNT 0 [facility] COMPLETE INC INC AUTO&[place] [address] YOVANY PEDROZA TROPONIN 0 [facility] QUANTITAT INC INC SALONI CREATINE 29518 YOVANY PEDROZA KINASE MB 0 [facility] [place] [address] YOVANY PEDROZA AMYLASE 0 [facility] INC INC URNLS DIP 91657 YOVANY MCGRAWON 0 [facility] STICK/TAB INC INC [place] [address] YOVANYCAROLE PEDROZA LIPASE 0 [facility] INC INC ECG 21752 YOVANY PEDROZA ROUTINE 0 [facility] ECG INC INC W/LEAST 12 LDS TRCG ONLY W/O I&R ECG 15790 YOVANY LEACH ROUTINE 0 [facility] W/LEAST PROF SERV 12 LDS I&R ONLY DEBRIDEME 18756 ASHA BARRY NT SKIN [address] [place] [address] [facility] CARTAGENA, HEAD/BRAI 0 MEDICAL GABRIELLA P N W/O IMAGING CONTRAST ASSOCIATE MATERIAL S AMB A0427 [facility] SERVICE 0 AMBULANCE AMBULANCE ALS SERVICE SERVICE EMERGENCY TRANSPORT LEVEL 1 3D 17429 [facility] CARTAGENA, RENDERING 0 MEDICAL GABRIELLA P W/INTERP IMAGING & ASSOCIATE POSTPROCE S SS SUPERVISI ON GROUND A0425 [facility] MILEAGE 0 AMBULANCE AMBULANCE PER SERVICE SERVICE STATUTE MILE TRAVEL [address] MED 0 PHYSICIAN PHYSICIAN NEC LAB S LAB S LAB SPEC; PRORATD TRIP CHRG COLLECTIO 57879 COMBINED COMBINED N VENOUS 0 PHYSICIAN PHYSICIAN BLOOD S LAB S LAB VENIPUNCT URE BLOOD 25156 COMBINED COMBINED COUNT 0 PHYSICIAN PHYSICIAN COMPLETE S LAB S LAB AUTO&AUTO DIFRNTL WBC DEBRIDEME 00742 ASHA BARRY NT SKIN 0 [place] [address] YOVANY PEDROZA INFUSION 0 [facility] THERAPY/P INC INC ROPHYLAXI S /DX 1ST TO 1 HR THERAPEUT 57223 YOVANY PEDROZA IC 0 [facility] INJECTION INC INC IV PUSH EACH NEW DRUG HEPATIC 23456 YOVANY PEDROZA FUNCTION 0 [facility] PANEL INC INC AMB A0427 [facility] SERVICE 0 AMBULANCE AMBULANCE ALS SERVICE SERVICE EMERGENCY TRANSPORT LEVEL 1 3D 38494 DOYLE CARTAGENA, RENDERING 0 MEDICAL GABRIELLA P W/INTERP IMAGING & ASSOCIATE [place] ECG [address] LEYDI TAWNY, ROUTINE 0 EMERGENCY ALEX S ECG SERVICES W/LEAST 12 LDS ASSOCIATE I&R ONLY S ECG 75600 YOVANY PEDROZA ROUTINE 0 [facility] ECG INC INC W/LEAST 12 LDS TRCG ONLY W/O I&R CREATINE 43946 YOVANY PEDROZA KINASE MB 0 [facility] [place] [address] DOYLE BROWNLEY, HEAD/BRAI 0 MEDICAL GABRIELLA P N W/O IMAGING CONTRAST ASSOCIATE MATERIAL S BLOOD 07569 YOVANY MCGRAWON COUNT 0 [facility] COMPLETE INC INC AUTO&[place] [address] YOVANY PEDROZA TROPONIN 0 [facility] QUANTITAT INC INC SALONI CREATINE 43193 YOVANY PEDROZA KINASE 0 [facility] TOTAL INC INC BASIC 07092 YOVANY PEDROZA METABOLIC 0 [facility] PANEL INC INC CALCIUM TOTAL GROUND A0425 [facility] MILEAGE 0 AMBULANCE AMBULANCE PER SERVICE SERVICE STATUTE MILE GROUND A0425 [facility] MILEAGE 9 AMBULANCE AMBULANCE PER SERVICE SERVICE STATUTE MILE AMBULANCE A0429 [facility] SERVICE 9 AMBULANCE AMBULANCE BLS SERVICE SERVICE EMERGENCY TRANSPORT DUP-SCAN 37418 YOVANY PEDROZA XTR VEINS 9 [facility] INC INC UNILATERA L/LIMITED STUDY ECG 34723 [facility] ROUTINE 9 [facility] ECG W/LEAST 12 LDS TRCG ONLY W/O I&R ECG 65157 [facility], ROUTINE 9 RADHA DMITRIY G ECG EMERGENCY W/LEAST PHYS INC 12 LDS I&R ONLY AMBULANCE A0429 JESSAMINE JESSAMINE SERVICE 9 CO CO BLS AMBULANCE AMBULANCE EMERGENCY TRANSPORT GROUND A0425 JESSAMINE JESSAMINE MILEAGE 9 CO CO PER AMBULANCE AMBULANCE STATUTE MILE IIV3 06915 CRIS LYNCH, VACCINE 9 GABI Boateng SPLIT VIRUS 0.5 ML DOSAGE IM USE ADMINISTR G0008 CRIS LYNCH, ATION OF 9 GABI [place] [address] [place] OSIEL, ABDOMEN 9 MEDICAL GABRIELLA P W/O IMAGING CONTRAST ASSOCIATE MATERIAL S 3D 24215 YOVANY PEDROZA RENDERING 9 [facility] INC INC W/INTERP& POSTPROC DIFF WORK STATION BASIC 01534 YOVANY PEDROZA METABOLIC 9 [facility] PANEL INC INC CALCIUM TOTAL BLOOD 38941 YOVANY PEDROZA COUNT 9 [facility] COMPLETE INC INC AUTO&AUTO DIFRNTL WBC CT PELVIS 11795 IDAHO OSIEL, W/O 9 MEDICAL GABRIELLA P CONTRAST IMAGING MATERIAL ASSOCIATE S URNLS DIP 66677 YOVANY PEDROZA 9 [facility] STICK/TAB INC INC LET REAGENT AUTO MICROSCOP Y GROUND A0425 [facility] MILEAGE 9 AMBULANCE AMBULANCE PER SERVICE SERVICE STATUTE MILE AMBULANCE A0429 [facility] SERVICE 9 AMBULANCE AMBULANCE BLS SERVICE SERVICE EMERGENCY TRANSPORT TRANS R0075 [facility] PRTBL 9 [facility] XRAY EQP&PERS GINETTE/NRS GINETTE-TRIP> 1 PT RADIOLOGI 28718 [facility] C 9 [facility] KNEE 3 VIEWS SET-UP Q0092 [facility] PORTABLE 9 [facility] [employer] X-RAY EQUIPMENT URNLS DIP 54390 COMBINED COMBINED 9 PHYSICIAN PHYSICIAN STICK/TAB S LAB S LAB LET REAGENT AUTO MICROSCOP Y DEBRIDEME 91240 ASHA BARRY, NT SKIN 9 ANGY S ANGY S PARTIAL THICKNESS MRI LOWER 75949 BRITTNEY, BRITTNEY, EXTREM 9 HAYLEY HAYLEY OTH/THN JT W/O & W/[place] [address] COMBINED COMBINED UREA 9 PHYSICIAN PHYSICIAN NITROGEN S LAB S LAB QUANTITAT SALONI COLLECTIO 44294 COMBINED COMBINED N VENOUS 9 PHYSICIAN PHYSICIAN BLOOD S LAB S LAB VENIPUNCT URE TRAVEL [address] MED 9 PHYSICIAN PHYSICIAN NEC LAB S LAB S LAB SPEC; PRORATD TRIP CHRG CREATININ 62662 COMBINED COMBINED E BLOOD 9 PHYSICIAN PHYSICIAN S LAB S LAB DEBRIDEME 90459 ASHA BARRY, NT SKIN 9 ANGY S ANGY S PARTIAL THICKNESS DEBRIDEME 69854 ASHA BARRY, NT SKIN 9 ANGY S ANGY S PARTIAL THICKNESS DEBRIDEME 55137 ASHA BARRY, NT SKIN 9 ANGY S ANGY S PARTIAL THICKNESS RADIOLOGI 42079 ASHA BARRY, C 9 ANGY S ANGY S EXAMINATI ON FOOT 2 VIEWS SBSQ 60213 CRIS LYNCH, NURSING 9 GABI Boateng FACIL CARE/DAY MINOR COMPLJ 15 MIN ORTHOPANT 51605 AL KARAN ESTRADA 8 FOR EDENILSON Guerrier ORAL&MAXI LLOFACIAL SURGERY ADMINISTR G0008 CRIS LYNCH, ATION OF 8 GABI Boateng INFLUENZA VIRUS VACCINE IIV3 42145 CRIS LYNCH, VACCINE 8 GABI Boateng SPLIT VIRUS 0.5 ML DOSAGE IM USE TRAVEL [address] MED 8 PHYSICIAN PHYSICIAN NEC LAB S LAB S LAB SPEC; PRORATD TRIP CHRG COLLECTIO 34895 COMBINED COMBINED N VENOUS 8 PHYSICIAN PHYSICIAN BLOOD S LAB S LAB VENIPUNCT URE BASIC 72477 COMBINED COMBINED METABOLIC 8 PHYSICIAN PHYSICIAN PANEL S LAB S LAB CALCIUM TOTAL BLOOD 66420 COMBINED COMBINED COUNT 8 PHYSICIAN PHYSICIAN COMPLETE S LAB S LAB AUTO&AUTO DIFRNTL WBC RADEX 34963 YOVANY PEDROZA WRIST 8 [facility] COMPLETE INC INC MINIMUM 3 VIEWS AMBULANCE A0429 [facility] SERVICE 8 AMBULANCE AMBULANCE BLS SERVICE SERVICE EMERGENCY TRANSPORT GROUND A0425 [facility] AMBULANCE PER SERVICE SERVICE STATUTE MILE SBSQ 66098 CRIS LYNCH, NURSING 8 GABI Boateng FACIL CARE/DAY MINOR COMPLJ 15 MIN SBSQ 15383 CRIS LYNCH, NURSING 8 GABI Boateng FACIL CARE/DAY MINOR COMPLJ 15 MIN Encounters Encounter Start End Date Code Location Performer Type Date EMERGENCY 22515 KENA STEPHENSON DEPT 7 7 PHYSICIAN U VISIT [facility] [place] [facility] T EMERGENCY 96045 KENA JAMES DEPT 7 7 PHYSICIAN VISIT S, PLLC HIGH SEVERITY& THREAT FUNCJ EMERGENCY 21633 YOVANY 7 7 [facility] T VISIT LOW/MODER SEVERITY EMERGENCY 53980 KENA HECTOR DEPT 7 7 PHYSICIAN VISIT S, PLLC HIGH SEVERITY& THREAT FUNCJ EMERGENCY 05168 YOVANY 7 7 [facility] T VISIT HIGH/URGE NT SEVERITY HOSPITAL YOVANY - 7 7 [facility] EMERGENCY 82020 KENA RUSSO DEPT 7 7 PHYSICIAN VISIT S, PLLC HIGH SEVERITY& THREAT FUNJ EMERGENCY 81745 YOVANY 7 7 [facility] T VISIT HIGH/URGE NT SEVERITY HOSPITAL YOVANY - 7 7 [facility] EMERGENCY 73732 [facility] 7 PHYSICIAN VISIT S, PLLC HIGH SEVERITY& THREAT [facility] YOVANY - 7 7 [facility] EMERGENCY 01254 KENA STEPHENSON DEPT 7 7 PHYSICIAN U VISIT S, PLLC HIGH SEVERITY& THREAT [facility] HOSPITAL YOVANY - 6 6 [facility] EMERGENCY 10039 KENA [facility] DEPT 6 6 PHYSICIAN BRITTANEY VISIT S, PLLC HIGH SEVERITY& THREAT FUN EMERGENCY 25051 Y[facility]ANY 6 6 [facility] T VISIT MODERATE [facility]VERITY HOSPITAL YOVANY - 6 6 [facility] OUTPATIEN [facility] T OFFICE [id number] [facility] CONSULTAT 5 5 [place] REGGIE BOWLES PHYSICIAN NEW/ESTAB S ASSIST PATIENT 60 MIN HOSPITAL YOVANY [facility] 5 5 [facility] HOSPITAL YOVANY - 5 5 [facility] YOVANY - 5 5 [facility] H[facility]PITAL YOVANY [facility] 4 4 [facility] YOVANY - 3 3 [facility] YOVANY [facility] 2 2 [facility] YOVANY - 2 2 [facility] YOVANY - 2 2 [facility] YOVANY - 2 2 [facility] YOVANY - 1 1 [facility] OUTPATIEN [facility] EMERGENCY 73421 LEYDI CHRISTOPHER DEPT 1 1 EMERGENCY III MAXIM VISIT SERVICES HIGH SEVERITY& THREAT FUN EMERGENCY 83458 YOVANY 1 1 [facility] T VISIT HIGH/URGE NT SEVERITY EMERGENCY 92698 YOVANY 1 1 [facility] T VISIT HIGH/URGE NT SEVERITY HOSPITAL YOVANY - 1 1 [facility] OUTPATIEN [facility] EMERGENCY 49520 LEYDI CHRISTOPHER DEPT 1 1 EMERGENCY III MAXIM VISIT SERVICES HIGH SEVERITY& THREAT [facility] HOSPITAL UNIVERSIT - 1 1 [facility] 18538 [facility] 1 1 FOOT FOOT T 30 PROFESSIO PROFESSIO MINUTES NALS NALS EMERGENCY 15894 LEYDI HECTOR, [address] [facility] DEPARTMEN SERVICES T VISIT HIGH/URGE ASSOCIATE NT S SEVERITY HOSPITAL YOVANY - 0 0 [facility] INC T EMERGENCY 94116 YOVANY 0 0 [facility] T VISIT LIMITED/M INOR PROB OFFICE 40485 [facility], OUTPATIEN 0 0 IMPLANT & ERIC R T NEW 20 [facility] SURGERY [facility] EMERGENCY 64394 YOVANY 0 0 [facility] DEPART[facility] INC T VISIT HIGH/URGE NT SEVERITY EMERGENCY 47925 LEYDI HECTOR, DEPT 0 0 EMERGENCY [place] [facility] VISIT SERVICES HIGH SEVERITY& ASSOCIATE THREAT S [facility] HOSPITAL YOVANY - 0 0 [facility] OUTPATIEN INC T EMERGENCY 00486 LEYDI HECTOR, DEPT [address] [facility] VISIT SERVICES HIGH SEVERITY& ASSOCIATE THREAT S [facility] EMERGENCY 36751 YOVANY 0 0 [facility] DEPART[facility] INC T VISIT HIGH/URGE NT SEVERITY HOSPITAL YOVANY - 0 0 [facility] T HOSPITAL YOVANY - 0 0 [facility]IEN INC T EMERGENCY 17099 LEYDI CHRISTOPHER DEPT 0 0 EMERGENCY III, VISIT SERVICES LUISANA HIGH SEVERITY& ASSOCIATE THREAT S [facility] EMERGENCY 93779 YOVANY 0 0 [facility] DEPART[facility] T VISIT MODERATE SEVERITY EMERGENCY [id number] [facility] 0 0 [facility] T VISIT HIGH/URGE NT SEVERITY [facility]OSP[facility] - [facility] 0 [facility] OUTPATIEN [facility] T EMERGENCY [id number] LEYDI HECTOR, DEPT 0 0 EMERGENCY [place] VISIT SERVICES HIGH SEVERITY& ASSOCIATE THREAT S [facility] OFFICE [id number] ASHA BARRY, OUTPATIEN 0 0 ANGY S ANGY S T VISIT 10 MINUTES HOSPITAL [facility] - 9 9 [facility] T EMERGENCY 07650 [facility] 9 9 [facility] T VISIT LOW/MODER SEVERITY HOSPITAL [facility] - 9 9 HOSPITAL OUTPATIEN T EMERGENCY [id number] [facility] DEPT 9 9 HOSPITAL VISIT HIGH SEVERITY& THREAT FUNJ EMERGENCY 95729 [facility], 9 9 [facility] T VISIT PHYS INC MODERATE SEVERITY EMERGENCY [id number] [facility] 9 9 [facility] DEPART[facility] INC T VISIT HIGH/URGE NT SEVERITY [facility]OSPITAL [facility] - 9 9 [facility] T EMERGENCY 19831 LEYDI HECTOR, DEPT 9 9 EMERGENCY ALEX S VISIT SERVICES HIGH SEVERITY& ASSOCIATE THREAT S FUN OFFICE [id number] ASHA BARRY OUTPATIEN 9 9 ANGY S ANGY S T VISIT 10 MINUTES OFFICE [id number] ASHA BARRY OUTPATIEN 9 9 ANGY S ANGY S T VISIT 10 MINUTES OFFICE 48722 ASHA BARRY OUTPATIEN 9 9 ANGY S ANGY S T NEW 30 MINUTES OFFICE [id number] AL JUSTIN ESTRADA 8 8 FOR EDENILSON E T NEW 10 ORAL&MAXI MINUTES LLOFACIAL SURGERY [facility] Y[facility]ANY - 8 8 [facility] OUTPATIEN INC T EMERGENCY 47327 [facility] 8 8 [facility] DEPARTMEN INC T VISIT MODERATE SEVERITY
--- OUTSIDE RECORDS SUMMARY | 2017-08-23 20:09 | External Medical Summary Rpt ---
[...] 0.4 K/mm3 Normal No Aug 12 ls informati 2016 [#/volume on in ] in [...] 4.5 K/mm3 Normal No Aug 12 es inform2016 [#/volume on in ] in source Unspecifi data ed specimen by Automated count Lymphocyt 10 - 50.0 % Normal No Aug 12 es inform2016 [#/volume on in ] in source Unspecifi [...]
--- OUTSIDE RECORDS SUMMARY | 2017-08-23 20:09 | External Medical Summary Rpt | CCD ---
Demographics Preferred Language Estonian Marital Status Unknown Temple Affiliation Unknown Race Unknown Ethnic Group Unknown Author Author , RENAN WEBB Address Unknown Phone Immunization No patient found.
--- OUTSIDE RECORDS SUMMARY | 2017-08-23 20:09 | External Medical Summary Rpt | CCD ---
Demographics Preferred Language Egyptian Marital Status Unknown Nondenominational Affiliation Unknown Race Unknown Ethnic Group Unknown Author Author , RENAN WEBB Address Unknown Phone Immunization No patient found.
[2017-08-23 20:43] VITALS: BP 120/77
--- NOTE | 2017-08-24 05:34 | RADIOLOGY REPORT PS360 ---
CHEST-PORTABLE HISTORY: C/O PAIN TO CHEST ORDERING PHYSICIAN: Zeyad Rojo MD PATIENT AGE: 71 years COMPARISON: 08/12/2017 FINDINGS: The cardiomediastinal silhouette and pulmonary vascularity are within normal limits. The lungs are clear without infiltrates, suspicious nodules, or pleural effusions. No acute bony abnormalities. IMPRESSION: Negative chest, no acute finding
== END 2017-08-23 21:10 | disposition home or self-care (01) ==
LOC: ER 19:06
PROVIDERS: Emergency Medicine
DX: R07.2 Precordial pain (principal); F17.210 Nicotine dependence, cigarettes, uncomplicated; K21.9 Gastro-esophageal reflux disease without esophagitis; I10 Essential (primary) hypertension